=== PATIENT | male | born 1970 | race Caucasian/White ===

== ENCOUNTER 2023-06-20 16:55 | Emergency (ER) | payer MEDICARE, MEDICAID, SELFPAY ==
[2023-06-20 17:44] VITALS: BP 149/106; PULSE 77; RESP 16; TEMP 36.7; O2SAT 94; BMI 32.3
--- NOTE | 2023-06-20 20:15 | ED.EXTPRO ---
HPI - Extremity Problem General Chief complaint: Extremity Injury, Upper Stated complaint: shoulder injury, fell Time Seen by Provider: 06/20/23 20:13 Source: patient Mode of arrival: ambulatory Limitations: no limitations History of Present Illness HPI Narrative: 53 yo male no PMH states he has not felt well and became dizzy yesterday falling on his R shoulder - dominant hand. Has pain in R shoulder and difficulty moving arm. He has never injured the R shoulder before. No other injuries. When asked about the illness and dizziness he states I am not here for that. He refuses work up or to talk about any preceding events leading to the shoulder injury. MD Complaint: extremity pain and joint pain Onset (ago): day(s) (1) Pain Consistency: constant Location: right and upper extremity Quality: aching, dull and constant Radiation: none Relieving factors: rest Exacerbating factors: range of motion and palpation Associated symptoms: denies other symptoms Context: other (fall directly on shoulder) Related Data Previous Rx's Medication Instructions Recorded cyclobenzaprine 10 mg tablet 10 mg PO TID PRN muscle spasm #20 06/20/23 tabs Allergies Allergy/AdvReac Type Severity Reaction Status Date / Time No Known Allergies Allergy Verified 06/20/23 17:48 Review of Systems Review of Systems: Constitutional : No Fever, No Chills Cardiovascular : No Chest Pain, No SOB Respiratory : No Cough, No Dyspnea Gastrointestinal : No Nausea, No Vomiting, No Diarrhea, No abdominal Pain Genitourinary : No Dysuria, No Hematuria Musculoskeletal : positive joint pain, No Myalgias, No Joint Swelling Skin : No Skin lacerations, No rash Neuro : No Weakness, No Numbness, No Loss of Consciousness, No Dizziness, No Headache Psych : No Anxiety/Panic, No Depression All other systems reviewed and are negative [facility] Past Medical History Attestation statement: The following information was validated with the patient. Source: old records reviewed Onset Date is defined in the Problem List Problems that require an onset date and time if occurred within 24 hrs of arrival to the ED Aortic Dissection and Rupture; Neurologic impairment; Cardiopulmonary Arrest; Endotracheal Intubation; Insertion or Replacement of Mechanical Circulatory Assist Device Medical History No pertinent past medical history Social History Social History (Updated 06/20/23 @ 20:40 by Chaya Clements DO) Patient Tobacco Use Status: Tobacco use Unknown Physical Exam Vital Signs: Vital Signs: Last Vital Signs Temp 97.9 F 06/20/23 20:17 Pulse 83 06/20/23 20:17 Resp 18 06/20/23 20:17 BP 157/87 H 06/20/23 20:17 Pulse Ox 94 06/20/23 20:17 O2 Del Method Room Air 06/20/23 20:17 BMI result Body Mass Index 32.3 Appearance: Alert. Oriented X3. No acute distress. Eyes: Pupils equal, round and reactive to light. ENT: Pharynx normal. appears atraumatic Neck: Normal inspection. CVS: . Pulses normal. Respiratory: No respiratory distress. Abdomen: atraumatic Skin: Skin warm and dry. Normal skin color. Extremities: R shoulder ttp along prox humerus and AC joint - distal NV intact will not range the joint due to pain Neuro: Oriented X 3. No motor deficit. No sensory deficit. Medical Decision Making Medical Decision Making MDM Narrative: 53 yo male R hand dominant with some illness and dizziness resulting in a fall and R shoulder pain he is refusing to talk about it or get worked up - GCS 15 at this time c/o R shoulder pain cannot perform rotator cuff testing. He is NV intact will obtain xray and place in sling refer to orthopedics Differential Diagnosis Differential Diagnoses: The differential diagnosis associated with the presentation includes sprain, strain, fracture, rotator cuff injury Independent Interpretation I performed an independent interpretation of an: Plain X-Ray Radiology Impression Discussion of test interpretation with radiology: I have reviewed the radiologist's reading. Prescription Management I considered prescription management with: Other Procedures Orthopedic Splinting/Casting Injury #1: Side: right Upper Extremity Injury Location: shoulder Upper Extremity Immobilizer: sling/shoulder immobilizer Discharge Plan Discharge Clinical Impression: AC joint derangement Shoulder sprain Qualifiers: Encounter type: initial encounter Shoulder sprain type: unspecified sprain Laterality: right Qualified Code(s): S43.401A - Unspecified sprain of right shoulder joint, initial encounter Patient Disposition: Home, Self-Care Instructions: Shoulder Sprain (ED) Additional Instructions: wear sling for the next week follow up with orthopedics it is okay to move and range the elbow and wrist. return for weakness, numbness, worsening pain or any other concerns. can take motrin or tylenol over the counter for pain. Prescriptions: New cyclobenzaprine 10 mg tablet 10 mg PO TID PRN (Reason: muscle spasm) Qty: 20 0RF Referrals: Sagrario Amador PA-C [Physician Desk Manager] - 1 week (call to schedule appointment - one week)
[2023-06-20 20:17] VITALS: BP 157/87; PULSE 83; RESP 18; TEMP 36.6; O2SAT 94
== END 2023-06-20 21:16 | disposition home or self-care (01) ==
PROVIDERS: Emergency Provider Emergency Medicine
DX: S43.401A Unspecified sprain of right shoulder joint, initial encounter (principal); W18.30XA Fall on same level, unspecified, initial encounter; Y93.9 Activity, unspecified; Y92.9 Unspecified place or not applicable; Y99.9 Unspecified external cause status
CPT/HCPCS: 73030; 99283

== ENCOUNTER 2023-08-14 13:47 | Outpatient (AMB) | payer MEDICARE, SELFPAY ==
--- NOTE | 2023-08-14 13:54 | MHC.OFFVIS ---
Intake Intake Visit Reasons: SECOND HAND-Right shoulder pain-DOI 06/20/23 Intake Note: Paras is a 53 year old right hand dominant male who presents as a new patient with Right shoulder pain and weakness. The patient states that he injured his right shoulder several months ago when felt dizzy and fell directly onto his right arm. Since that time he has not been able to lift his right hand to shoulder height. The patient states that he had full active range of motion of his shoulder prior to his fall. He has taken Tylenol and anti-inflammatory medicines which gave him minimal relief. He has also done physical therapy exercises which aggravated his pain. Allergies No Known Allergies Allergy (Verified 08/14/23 13:54) [facility], [facility] Medical History No pertinent past medical history Social History Patient Tobacco Use Status: Tobacco use Unknown Physical Exam Const Other: Well-nourished well-developed very friendly male awake alert and oriented x3 in no acute distress Extrem Other: Bilateral upper extremity examination shows good capillary refill, no skin lesions noted, normal sensation light touch Right shoulder examination shows decreased active range of motion but full passive range of motion when compared to his left shoulder, 3/5 strength with supraspinatus testing, positive impingement signs, tenderness over his acromioclavicular joint, no instability Results Reviewed Results Reviewed: X-rays of the patient's right shoulder show severe acromioclavicular joint narrowing, a type 2 acromion, no acute bony abnormalities Assessment & Plan Assessment & Plan (1) Right shoulder pain: Code(s): M25.511 - Pain in right shoulder Plan Mr. Owen presents with progressively worsening right shoulder pain and weakness most likely due to a full-thickness rotator cuff tear. Thus, patient for an MRI of his right shoulder for further evaluation. I will contact him by phone once the MRI results are available to discuss the findings and treatment options. He will continue with his home stretching program in the meantime to prevent stiffness. I spent 22 minutes in reviewing the patient's records and imaging studies, seeing the patient and documenting in the medical record. Orders: Orders MR shoulder RT wo con Today M25.511 - Pain in right shoulder Coding Level of Care Code New Pt Level 2 (22499) Diagnoses Right shoulder pain M25.902
== END 2023-08-14 14:20 | disposition home or self-care (01) ==
PROVIDERS: Visit Provider Orthopaedic Surgery
DX: M25.511 Pain in right shoulder (principal)
CPT/HCPCS: 99202

== ENCOUNTER → 2023-08-14 13:47 | Outpatient (BNVA) | payer MEDICARE, SELFPAY | PROVIDERS: Visit Provider Orthopaedic Surgery | DX: M25.511 Pain in right shoulder (principal) | CPT/HCPCS: 99202 ==

== ENCOUNTER 2023-09-10 14:02 | Outpatient (REF) | payer MEDICARE, MEDICAID, SELFPAY ==
--- NOTE | ~2023-09-10 | MR_ITS ---
EXAMINATION: MR SHOULDER WITHOUT CONTRAST, RIGHT CLINICAL INFORMATION: Right shoulder pain. COMPARISON: Radiographs 06/20/2023 TECHNIQUE: MRI of the shoulder without contrast was performed on a high-field scanner. FINDINGS: ROTATOR CUFF: The supraspinatus and infraspinatus tendons are completely torn and retracted to the level of the glenoid with muscle edema and mild atrophy/fatty infiltration. A small portion of the torn supraspinatus tendon remains attached to the greater tuberosity anteriorly. The subscapularis and teres minor tendons are intact. BICEPS: Normal. CORACOACROMIAL ARCH: The undersurface of the acromion is flat with no subacromial spur. Moderate acromioclavicular osteoarthritis. LABRUM/CAPSULE: No definite labral tear. GLENOHUMERAL JOINT/MARROW: The humeral head is superiorly subluxed. There is a moderate joint effusion. Small degenerative cyst at the anterior aspect of the humeral head and small degenerative cysts of the superolateral humeral head. No focal full-thickness cartilage defect. MR/MR shoulder RT wo con IMPRESSION: 1. Completely torn and retracted supraspinatus and infraspinatus tendons with muscle edema and mild atrophy/fatty infiltration. 2. Moderate acromioclavicular and mild glenohumeral osteoarthritis with a moderate joint effusion.
== END 2023-09-10 14:03 | disposition home or self-care (01) ==
LOC: HO.MRI 14:02
PROVIDERS: Visit Provider Orthopaedic Surgery
DX: M25.511 Pain in right shoulder (principal)
CPT/HCPCS: 73221

== ENCOUNTER 2023-09-24 12:59 | Outpatient (AMB) | payer MEDICARE, SELFPAY ==
[2023-09-24 13:07] VITALS: BMI 32.3
--- NOTE | 2023-09-24 13:07 | MHC.OFFVIS ---
Intake Vital Signs 09/24/23 13:07 Height 5 ft 10 in Weight 225 lb BMI 32.3 Intake Visit Reasons: OV- MRI review Right shoulder Intake Note: Paras is a 53 year old right hand dominant male who presents as a new patient with Right shoulder pain and weakness. The patient states that he injured his right shoulder several months ago when felt dizzy and fell directly onto his right arm. Since that time he has not been able to lift his right hand to shoulder height. The patient states that he had full active range of motion of his shoulder prior to his fall. He has taken Tylenol and anti-inflammatory medicines which gave him minimal relief. He has also done physical therapy exercises which aggravated his pain. Allergies No Known Allergies Allergy (Verified 09/24/23 13:09) Medication List - Last Reconciled 09/24/23 by Faizan Moreira MD No Known Home Meds [facility] Medical History (Updated 08/14/23 @ 14:23 by Faizan Moreira MD) No pertinent past medical history Surgical History (Updated 09/24/23 @ 13:09 by Ernestina Woodruff CMA) Hx of right knee surgery (~2010) Social History (Updated 09/24/23 @ 13:10 by Ernestina Woodruff CMA) Patient Tobacco Use Status: Tobacco use Unknown Current occupational status: unemployed Current occupation: Right hand dominate Physical Exam Vital Signs: BMI result Body Mass Index 32.3 Const Other: Well-nourished well-developed very friendly male awake alert and oriented x3 in no acute distress Extrem Other: Bilateral upper extremity examination shows good capillary refill, no skin lesions noted, normal sensation light touch Right shoulder examination shows full passive range of motion but limited active range of motion, 3/5 strength with supraspinatus testing, positive impingement signs, no instability Results Reviewed Results Reviewed: MRI of the patient's right shoulder shows a large rotator cuff tear with retraction almost to the glenoid lip as well as a high riding humeral head Assessment & Plan Assessment & Plan (1) Right shoulder pain: Code(s): M25.511 - Pain in right shoulder Plan Mr. Hughes presents with right shoulder pain and weakness due to a large rotator cuff tear. I had a lengthy discussion with the patient regarding the treatment options. At this point he has failed continued non operative treatments. He wishes to undergo right shoulder surgery at some point in the future. The patient may require a total shoulder arthroplasty because of the size of his tear. I will have him evaluated by my partner, Dr. Mai, who performs this type of surgery to further discuss the risks and benefits of surgical intervention. The patient will continue with his range of motion exercises in the meantime to prevent stiffness. Feel free to call me at any time should questions regarding his orthopedic management arise. I spent 22 minutes in reviewing the patient's records and imaging studies, seeing the patient and documenting in the medical record. Coding Level of Care Code Est Pt Level 2 (05738) Diagnoses Right shoulder pain M25.511
== END 2023-09-24 13:30 | disposition home or self-care (01) ==
PROVIDERS: Visit Provider Orthopaedic Surgery
DX: M25.511 Pain in right shoulder (principal)
CPT/HCPCS: 99213

== ENCOUNTER → 2023-09-24 12:59 | Outpatient (BNVA) | payer MEDICARE, MEDICAID, SELFPAY | PROVIDERS: Visit Provider Orthopaedic Surgery | DX: M25.511 Pain in right shoulder (principal) | CPT/HCPCS: 99212 ==

== ENCOUNTER 2023-10-14 10:12 | Outpatient (AMB) | payer MEDICARE, SELFPAY ==
[2023-10-14 10:17] VITALS: BMI 32.3
--- NOTE | 2023-10-14 10:17 | MHC.OFFVIS ---
Vital Signs 10/14/23 10:17 Height 5 ft 10 in Weight 225 lb BMI 32.3 Intake Visit Reasons: OV - Discuss Right TSA Intake Note: Paras is a 53 year old right hand dominant male who presents today for a follow up of his right RTC tear. He was last seen with Dr. moreira who referred to Dr. Mai for possible surgical intervention. Allergies No Known Allergies Allergy (Verified 09/24/23 13:09) HPI HPI OV - Discuss Right TSA: Details: Paras is a 53 year old right hand dominant male who presents today for a follow up of his right RTC tear. He was last seen with Dr. Moreira who referred to Dr. Mai for possible surgical intervention. He fell in June and has been unable to abduct his right arm since his fall. Prior to falling he had full painless motion of his right arm. [facility] Medical History No pertinent past medical history Surgical History Hx of right knee surgery (~2010) Social History Patient Tobacco Use Status: Tobacco use Unknown Current occupational status: unemployed Current occupation: Right hand dominate Physical Exam Vital Signs: BMI result Body Mass Index 32.3 Const General: cooperative, healthy appearing, no acute distress and well groomed Orientation/consciousness: oriented to person and oriented to place HEENT Head: Yes normal to inspection, Yes normocephalic and Yes atraumatic Eyes General: appearance normal, both eyes and all related structures Alignment and Position: alignment normal Conjunctivae: conjunctivae normal EOM: EOMs intact bilaterally Neck Neck: Yes normal visual inspection and Yes trachea midline Resp Other: No rerpiratory distress Effort & Inspection: normal respiratory effort and able to speak in complete sentences Cardio Other: Palpable radial pulse with no appreciable rythmic abnormalities GI Other: No abdominal distension Back/Spine/Pelvis Cervical Spine: normal cervical lordosis and cervical ROM normal Skin General skin exam: no rashes or lesions noted Neuro General: oriented to person, oriented to place and gait normal Extrem Other: 4-/5 empty can 35/70/95/hp neg lift off Results Reviewed Results Reviewed: I personally reviewed the MR images. Large retracted superior cuff tear with mild atrophy I personally reviewed relevant radiographs. Nl radiographs of the right shoulder Assessment & Plan Assessment & Plan (1) Rotator cuff tear, right: Code(s): M75.101 - Unspecified rotator cuff tear or rupture of right shoulder, not specified as traumatic Category: Medical Plan: This is a 53 yo healthy M with right rtc tear. The ter is retracted on MR but minimal atrophy. I recommend repair. I discussed the risks benefits and alternatives including but not limited to the risk of pain, infection, stiffness, need for further surgery as well as potential medical complications such as blood clots, pulmonary embolism and cardiac complications. I also explained that, given the large nature of this tear, it may only be partially repairable. He understands this and wishes to proceed forward with rtc repair. Coding Level of Care Code Est Pt Level 4 (17546) Diagnoses Rotator cuff tear, right M75.101
== END 2023-10-14 13:27 | disposition home or self-care (01) ==
PROVIDERS: Visit Provider Orthopaedic Surgery
DX: S46.011A Strain of muscle(s) and tendon(s) of the rotator cuff of right shoulder, initial encounter (principal)
CPT/HCPCS: 99214

== ENCOUNTER → 2023-10-14 10:12 | Outpatient (BNVA) | payer MEDICARE, SELFPAY | PROVIDERS: Visit Provider Orthopaedic Surgery | DX: M75.101 Unspecified rotator cuff tear or rupture of right shoulder, not specified as traumatic (principal) | CPT/HCPCS: 99212 ==

== ENCOUNTER 2023-11-13 12:13 | Outpatient (AMB) | payer MEDICARE, SELFPAY ==
--- NOTE | 2023-11-13 12:48 | MHC.OFFVIS ---
Vital Signs 11/13/23 12:49 Height 5 ft 10 in Weight 225 lb BMI 32.3 Intake Visit Reasons: Preop RT RTC 11/20/23 NE Intake Note: Paras is a 53 year old male who presents today for a pre operative appointment. He will undergo a Right RTC Repair on 11/20/23 Allergies No Known Allergies Allergy (Verified 11/13/23 12:49) HPI HPI Preop RT RTC 11/20/23 NE: Details: 53 yo male presents to the office today pre op appt Right shoulder RTC repair with Dr Mai. [facility] Medical History No pertinent past medical history Surgical History Hx of right knee surgery (~2010) Social History Patient Tobacco Use Status: Tobacco use Unknown Current occupational status: unemployed Current occupation: Right hand dominate Review of Systems Const All systems reviewed & are unremarkable except as noted in HPI and below Physical Exam Vital Signs: BMI result Body Mass Index 32.3 Const General: cooperative and no acute distress Orientation/consciousness: patient oriented x3 HEENT Head: Yes normal to inspection, Yes normocephalic and Yes atraumatic Eyes General: appearance normal, both eyes and all related structures Alignment and Position: alignment normal Conjunctivae: conjunctivae normal EOM: EOMs intact bilaterally Neck Neck: Yes normal visual inspection and Yes no lymphadenopathy Resp Other: No rerpiratory distress Effort & Inspection: normal respiratory effort and able to speak in complete sentences Cardio Other: Palpable radial pulse with no appreciable rythmic abnormalities Peripheral pulses: Peripheral pulses 2+ throughout GI Other: No abdominal distension Inspection: Yes normal to inspection Palpation (GI): Soft to palpation Back/Spine/Pelvis Cervical Spine: normal cervical lordosis and cervical ROM normal Skin General skin exam: no rashes or lesions noted Neuro General: patient oriented x3 Extrem Other: 4-/5 empty can 35/70/95/hp neg lift off Assessment & Plan Assessment & Plan (1) Rotator cuff tear, right: Code(s): M75.101 - Unspecified rotator cuff tear or rupture of right shoulder, not specified as traumatic Category: Medical Plan: I was discussing the procedure and post op course with the patient today when he brought to my sttention that he does not have transportation to and from surgery. I expressed the importance of this and asked what his living situation was and he mentioned he is homeless. Given these circumstances, his surgery will be cancelled at this time. I encouraged him to get in touch with his pcp to discuss some type of disability services or assistance to help him get on his feet to allow for us to eventually proceed with his surgery. Patient is content with this plan. Coding Level of Care Code Est Pt Level 3 (52578) Diagnoses Rotator cuff tear, right M75.101
[2023-11-13 12:49] VITALS: BMI 32.3
== END 2023-11-13 16:06 | disposition home or self-care (01) ==
PROVIDERS: Visit Provider Physician Assistant
DX: M75.101 Unspecified rotator cuff tear or rupture of right shoulder, not specified as traumatic (principal)
CPT/HCPCS: 99024

== ENCOUNTER → 2023-11-13 12:13 | Outpatient (BNVA) | payer MEDICARE, SELFPAY | PROVIDERS: Visit Provider Physician Assistant | DX: Z01.818 Encounter for other preprocedural examination (principal); M75.101 Unspecified rotator cuff tear or rupture of right shoulder, not specified as traumatic | CPT/HCPCS: 99212 ==

== ENCOUNTER 2024-10-08 07:44 | Inpatient (IN) | payer MEDICARE, MEDICAID, SELFPAY ==
[2024-10-08] VITALS (8 sets, daily range): BP systolic 109–155; BP diastolic 59–92; PULSE 80–92; RESP 14–20; TEMP 36.4–37.3; O2SAT 94–98; BMI 30.1; BMI 31.1
--- NOTE | ~2024-10-08 | CT_ITS ---
EXAMINATION: CT ABDOMEN AND PELVIS WITH CONTRAST CLINICAL INFORMATION: Left lower quadrant pain. COMPARISON: None available. TECHNIQUE: Multidetector volumetric images were obtained from the superior aspect of the liver through the pubic symphysis following administration 85 mL of Omnipaque 350 intravenous contrast. Sagittal and coronal reformatted images were obtained on the technologist's workstation. Oral contrast: No This CT examination was performed using dose optimization techniques as appropriate, variously including the following: *Automated exposure control *Adjustment of mA and/or kV according to patient size (this includes techniques or standardized protocols for targeted exams where dose is matched to indication/reason for exam; i.e. extremities or head) *Use of iterative reconstruction technique FINDINGS: LUNG BASES: 5 mm nodule in the anterior right lower lobe, nonspecific (series 7, image 9). 5 mm nodule in the lateral right lower lobe (series 7, image 13). 8 mm nodule in the left lower lobe (series 7, image 9). No effusions. Lung bases otherwise clear. Borderline cardiac enlargement. No pericardial effusion. Small type I hiatus hernia suspected.] Minutes LIVER, GALLBLADDER, AND BILIARY TREE: Irregular vague oval 2.3 cm nodule in segment 8 (series 2, image 16). Vague hypoattenuating oval nodule segment 8 (series 2, image 26) measuring 2.3 x 1.5 cm. Vague hypoattenuating 1.2 cm nodule segment 7 (series 2, image 25). 9 mm hypoattenuating nodule segment 7, and 10 mm hypoattenuating nodule or inferior segment 7 (series 2, image 36). There are additional small vague hypoattenuating lesions in the liver, which are highly suspect for metastatic lesions. PANCREAS: Normal appearance without definite lesion. SPLEEN: Unremarkable. ADRENAL GLANDS: Unremarkable. KIDNEYS AND URETERS: The kidneys are normal in size, shape, and attenuation. No hydronephrosis, hydroureter, or calculi seen. No perinephric stranding. BLADDER: Unremarkable. GASTROINTESTINAL TRACT: Short segment of extensive wall thickening and irregularity of the sigmoid colon with pericolonic inflammation consistent with acute diverticulitis. There are nodular soft tissue low attenuating elements abutting this inflamed region highly suggestive of metastases or extension of primary malignancy from the colon (series 2, image 74), which is in direct continuity with a loop of terminal ileum (series 5, images 37-45) suspect primary neoplasm in this region. Mesenteric metastasis present slightly more cephalad abutting the left medial psoas muscle (series 2, image 66), measuring 3.0 x 2.4 cm axial plane. Enlarged portacaval lymph node measuring 2.1 x 2.4 cm (series 2, image 31). There is an enlarged para-aortic lymph node at the same level measuring 1.9 x 1.2 cm (series 2, image 31). There is no small bowel obstruction despite apparent tumor involvement of the terminal ileum as seen on coronal series 5, image 38. Normal appendix. The remainder of the colon demonstrates diverticulosis but is otherwise normal in appearance. ABDOMINAL WALL: No significant hernia is appreciated. LYMPH NODES: As above. VASCULAR: Unremarkable. PELVIC VISCERA: The prostate and seminal vesicles are unremarkable. OSSEOUS STRUCTURES: No suspicious lytic or blastic bone lesions evident. There are spinal degenerative changes. CT/CT abdomen pelvis w IV con IMPRESSION: 1. Acute diverticulitis in the left lower quadrant involving a short segment of proximal sigmoid colon, with evidence for an adjacent/contiguous infiltrating hypoattenuating mass lesion with direct involvement of an adjacent loop of terminal ileum, with both mesenteric and sheila metastases present. (See above). 2. There are poorly defined hypoattenuating oval lesions throughout the liver as detailed, highly suspicious for metastatic disease. 3. There are nodules in the lung bases measuring up to 8 mm left lower lobe, also suspicious. 4. There are abnormal aortocaval and para-aortic lymph nodes present, suspicious. Findings discussed with Pau Lazo PA-C of the [facility], via phone call at 10:28 AM, 10/08/2024, with findings understood. Electronically signed by: Nicolas Jones MD 10/08/2024 10:29 AM EDT
[2024-10-08 08:13] LABS: Glucose, Whole Blood 118 mg/dL (60-115)
--- NOTE | 2024-10-08 08:15 | PC.NURSE ---
pt is alert and oriented, skin slightly clammy to the touch, respirations even and unlabored, pt reports left lower abd pain and nausea that started yesterday bowel sounds in all 4 quadrants, abd soft but slightly tender in llq, pt is also reporting feeling generally weak and lightheaded/dizzy with pressure in his eyes, aslo states that his left leg yesterday felt very tight and painful, denies urinary symptoms
[2024-10-08 08:16] LABS: Basophils Absolute Auto 0.1 X10*3/uL (0.0-0.2); Basophils Percent Auto 0.4 % (0-2); Eosinophils Absolute Auto 0.1 X10*3/uL (0.0-0.4); Eosinophils Percent Auto 0.9 % (0-4); Hematocrit 36.3 % (42.0-52.0); Hemoglobin 10.7 g/dl (14.0-18.0); Imm Gran Abs Auto 0.05 X10*3/uL (0.00-0.03); Imm Gran Pct Auto 0.4 % (0.0-0.4); Lymphocytes Absolute Auto 1.7 X10*3/uL (1.2-4.9); MANUAL DIFF FLAG SCAN; Mean Corpuscular HGB Conc 29.5 g/dl (31.0-36.0); Mean Corpuscular Hemoglobin 23.1 pg (27.0-33.0); Mean Corpuscular Volume 78.2 fL (80.0-98.0); Monocytes Absolute Auto 1.6 X10*3/uL (0.1-1.2); Monocytes Percent Auto 11.7 % (2-11); Neutrophils Absolute Auto 10.4 x10*3/uL (2.0-8.3); Neutrophils Percent Auto 74.6 % (45-73); Platelet Count 383 X10*3/uL (160-400); Red Blood Count 4.64 X10*6/uL (4.60-5.80); Red Cell Distribution Width 14.9 % (11.0-16.0); SCAN SMEAR FLAG 1; White Blood Count 13.9 X10*3/uL (4.8-10.8)
[2024-10-08 08:31] LABS: Alanine Aminotransferase 28 U/L (0-40); Albumin Level 4.1 g/dL (3.5-5.0); Alkaline Phosphatase 100 U/L (39-117); Anion Gap 14 (12-20); Aspartate Amino Transferase 32 U/L (5-37); Bilirubin Direct 0.3 mg/dL (0.0-0.5); Bilirubin Total 0.7 mg/dL (0.0-1.0); Blood Urea Nitrogen 13 mg/dL (9-16); Calcium 9.8 mg/dL (8.4-10.2); Carbon Dioxide 24 mmol/L (22-29); Chloride 102 mmol/L (96-108); Creatinine Clr Calc Pharmacy 102.7; Estimated Glomerular Filt Rate > 60; Glucose Random 134 mg/dL (60-115); Lipase 12 U/L (8-78); Potassium 4.6 mmol/L (3.3-5.1); Sodium 135 mmol/L (135-145); Total Protein 8.1 g/dL (6.5-8.0)
[2024-10-08 08:39] LABS: SLIDE REVIEW VERIFIED
[2024-10-08 09:09] LABS: Influenza A PCR NEGATIVE (Negative); Influenza B PCR NEGATIVE (Negative); Resp Syncy Virus RNA Qual PCR NEGATIVE (Negative); SARS COV2 PCR INHOUSE NEGATIVE (Negative)
--- NOTE | 2024-10-08 09:11 | ED_ITS ---
HPI - Abdominal Pain General Chief Complaint: Abdominal Pain Stated Complaint: Abd pain Time Seen by Provider: 10/08/24 09:03 Source: patient Mode of arrival: ambulatory Limitations: no limitations History of Present Illness ED Provider: PAU LAZO PA-C HPI narrative: 54 year old male with no significant pmhx presenting to the ED with complaints of left lower quadrant abdominal pain x yesterday. Describes pain as severe however somewhat improved since onset. Pain woke him from his sleep yesterday morning. No radiation of pain. Reports feeling out of it with associated dizziness. Last bowel movement was 2 days ago. States this can be typical for him. Admits to intermittent blood in his stool. Reports episode of cramping to left thigh/calf yesterday that completely resolved with topical muscle relaxer. Patient tells me that he first attributed his symptoms to recent stress surrounding his mother passing. Denies chest pain, shortness of breath, headache, nausea, vomiting, constipation, diarrhea, hematuria. Denies recent travel or long car rides. Denies history of surgeries on his abdomen. Related Data Home Medications ?Medication ?Instructions ?Recorded ?Confirmed No Known Home Meds 09/24/23 09/24/23 Allergies Allergy/AdvReac Type Severity Reaction Status Date / Time No Known Allergies Allergy Verified 10/08/24 07:49 Review of Systems Review of Systems Yes all other systems are reviewed and are negative PMFSH Past Medical History Attestation statement: The following information was validated with the patient. Source: old records reviewed and nursing notes reviewed Medical History No pertinent past medical history Surgical History Hx of right knee surgery (~2010) Social History Social History Patient Tobacco Use Status: Tobacco use Unknown Smoked in Last 30 Days: No Use of substances other than those prescribed or required for medical reasons: No Advance Directives: No Advance Directives Information Provided: Yes Do you have a plan to hurt others: No Plan Current occupational status: unemployed Current occupation: Right hand dominate Physical Exam ED Vital Signs: Vital Signs - 24 hr 10/08/24 07:46 10/08/24 08:54 10/08/24 10:05 Temperature 97.6 F 98.9 F 98.4 F Pulse Rate 91 86 88 Respiratory Rate 16 20 16 Blood Pressure 153/92 H 117/75 134/75 Pulse Oximetry 97 95 97 Oxygen Delivery Method Room Air Room Air Room Air BMI result Body Mass Index 30.1 Hypertensive to 153/92. Afebrile. General: Pale appearing, in no acute distress Skin: Warm, dry, intact. No rashes or lesions. Head: Normocephalic, atraumatic. EENT: Hearing is intact b/l. Conjunctiva clear. Sclera is anicteric. Dry mucous membranes. Neck: Supple without LAD. Cardiac: Chest wall symmetric. RRR. Lungs: Normal respiratory effort without accessory muscle use. CTA bilaterally. Abdomen: soft, nondistended, tender to palpation of left lower quadrant without rebound tenderness or guarding. Active bowel sounds x4. Ext: Upper and lower extremities atraumatic, without deformity, swelling or erythema. No calf tenderness bilaterally. Neuro: AOx3. Normal speech. Sensation intact to bilateral LE Course Course Course Narrative: 0942 -- CBC with leukocytosis to 13.9. Microcytic anemia, no priors to compare to. H&H 10.7/36.3, above transfusion threshold. Chemistry without acute electrolyte abnormality requiring intervention. No MELINDA. Glucose 134. Liver function WNL. Lipase WNL. Negative COVID, flu, RSV. Urinalysis pending. > CT A/P ordered > receiving IV fluids, Toradol for pain 1144 -- Received call from radiologist Dr. Jones regarding results from CT scan. CT abdomen/pelvis showing acute diverticulitis in the left lower quadrant involving a short segment of proximal sigmoid colon with evidence for an adjacent/contiguous infiltrating hypoattenuating mass lesion with direct involvement of an adjacent loop of terminal ileum. Both mesenteric and sheila meds are present. There are poorly defined hypoattenuating oval lesions throughout the liver highly suspicious for metastatic disease. There are also nodules in the lungs measuring up to 8 mm left lower lobe also suspicious for metastatic disease. There are abnormal aortocaval and para-aortic lymph nodes present. > concern for metastatic cancer. I did reach out to Dr. James with general surgery. No specific recommendations at this time however recommended I reach out to GI. I spoke with butadiene converter utility operator Dr. Lemon who is recommendation is admission, treatment with IV antibiotics, Oncology consult, CEA level and possibly liver biopsy via IR. > I discussed all workup results with patient. He verbalizes understanding/severity of the situation. He wis agreeable with admission. IV Zosyn ordered. I spoke with hospitalist, Dr. Paredes who has accepted patient admission to medicine. patient is currently stable with continued LLQ pain - will trial morphine. Medical Decision Making Medical Decision Making [facility] Narrative: 54 year old male presenting to the ED with complaints of left lower quadrant abdominal pain x yesterday. Afebrile. Patient initially hypertensive to 153/92, vitals otherwise WNL. Afebrile. He is pale appearing, dry mucous membranes. Abdomen is soft, nondistended, tender to palpation of left lower quadrant without rebound or guarding, active bowel sounds. Differential diagnoses: appendicitis, diverticulitis, diverticulosis, UTI, constipation, anemia, electrolyte abnormality, dehydration Abdominal exam without peritoneal signs. No evidence of acute abdomen at this time. Well appearing. Low suspicion for acute hepatobiliary disease (including acute cholecystitis), acute infectious processes (pneumonia, hepatitis), vascular catastrophe, bowel obstruction or viscus perforation, testicular torsion, orchitis, epidydymitis. Presentation not consistent with other acute, emergent causes of abdominal pain at this time. Plan for labs, UA, POC glucose, inflammatory markers, CT abdomen/pelvis w contrast, IVF, Differential Diagnosis Differential Diagnoses: The differential diagnosis associated with the presentation includes As above Admission/Observation Not indicated Lab Data [facility] Lab Attestation statement: I reviewed the patient's lab results. As above 10/08/24 08:10 10/08/24 08:10 Labs: Lab Results 10/08/24 10/08/24 Range/Units 08:10 10:18 WBC 13.9 H (4.8-10.8) X10*3/uL RBC 4.64 (4.60-5.80) X10*6/uL Hgb 10.7 L (14.0-18.0) g/dl Hct 36.3 L (42.0-52.0) % MCV 78.2 L (80.0-98.0) fL MCH 23.1 L (27.0-33.0) pg MCHC 29.5 L (31.0-36.0) g/dl RDW 14.9 (11.0-16.0) % Plt Count 383 (160-400) X10*3/uL MPV 10.0 (9.4-12.4) fL Immature Gran % (Auto) 0.4 (0.0-0.4) % Neut % (Auto) 74.6 H (45-73) % Lymph % (Auto) 12.0 L (20-40) % [place] % (Auto) 11.7 H (2-11) % Eos % (Auto) 0.9 (0-4) % Baso % (Auto) 0.4 (0-2) % Lymph # (Auto) 1.7 (1.2-4.9) X10*3/uL [place] # (Auto) 1.6 H (0.1-1.2) X10*3/uL Eos # (Auto) 0.1 (0.0-0.4) X10*3/uL Baso # (Auto) 0.1 (0.0-0.2) X10*3/uL Abs Immat Gran (auto) 0.05 H (0.00-0.03) X10*3/uL Absolute Neuts (auto) 10.4 H (2.0-8.3) x10*3/uL Absolute Nucleated RBC 0.000 (0.0-0.012) X10*3/uL Nucleated RBC % (auto) 0.0 (0.0-0.2) /100WBC Smear Tech's Comments VERIFIED ESR 91 H (0-15) MM/HR Sodium 135 (135-145) mmol/L Potassium 4.6 (3.3-5.1) mmol/L Chloride 102 (96-108) mmol/L Carbon Dioxide 24 (22-29) mmol/L Anion Gap 14 (12-20) BUN 13 (9-16) mg/dL Creatinine 0.93 (0.5-1.4) mg/dL Estim Creat Clear Calc 102.7 Estimated GFR > 60 POC Glucose 118 H (60-115) mg/dL Random Glucose 134 H (60-115) mg/dL Calcium 9.8 (8.4-10.2) mg/dL Iron 17 L (45-160) mcg/dL TIBC 282 (228-428) mcg/dL % Saturation 6 L (15-50) % Unsat Iron Binding 265 ug/dL Total Bilirubin 0.7 (0.0-1.0) mg/dL Direct Bilirubin 0.3 (0.0-0.5) mg/dL AST 32 (5-37) U/L ALT 28 (0-40) U/L Alkaline Phosphatase 100 (39-117) U/L C-Reactive Protein 11.93 H (< or = 0.50) mg/dL Total Protein 8.1 H (6.5-8.0) g/dL Albumin 4.1 (3.5-5.0) g/dL Lipase 12 (8-78) U/L Stool Occult Blood NEGATIVE (NEGATIVE) Influenza Type A (PCR) NEGATIVE (Negative) Influenza Type B (PCR) NEGATIVE (Negative) RSV RNA Qual (PCR) NEGATIVE (Negative) SARS-CoV-2 RNA (RT-PCR) NEGATIVE (Negative) Independent Interpretation I performed an independent interpretation of an: CT Scan Interpretation: CT A/P without obvious bowel obstruction, inflammatory changes to colon in left lower quadrant Radiology Impression Discussion of test interpretation with radiology: I have reviewed the radiologist's reading. Radiologist Impression: Procedure(s): CT abdomen pelvis w IV con Accession Number(s): [id number] cc: [facility]; Pau Lazo~ Report Number: [id number]: Total DLP = 668.00 mGy-cm EXAMINATION: CT ABDOMEN AND PELVIS WITH CONTRAST CLINICAL INFORMATION: Left lower quadrant pain. COMPARISON: None available. TECHNIQUE: Multidetector volumetric images were obtained from the superior aspect of the liver through the pubic symphysis following administration 85 mL of Omnipaque 350 intravenous contrast. Sagittal and coronal reformatted images were obtained on the technologist's workstation. Oral contrast: No This CT examination was performed using dose optimization techniques as appropriate, variously including the following: *Automated exposure control *Adjustment of mA and/or kV according to patient size (this includes techniques or standardized protocols for targeted exams where dose is matched to indication/reason for exam; i.e. extremities or head) *Use of iterative reconstruction technique FINDINGS: LUNG BASES: 5 mm nodule in the anterior right lower lobe, nonspecific (series 7, image 9). 5 mm nodule in the lateral right lower lobe (series 7, image 13). 8 mm nodule in the left lower lobe (series 7, image 9). No effusions. Lung bases otherwise clear. Borderline cardiac enlargement. No pericardial effusion. Small type I hiatus hernia suspected.] Minutes LIVER, GALLBLADDER, AND BILIARY TREE: Irregular vague oval 2.3 cm nodule in segment 8 (series 2, image 16). Vague hypoattenuating oval nodule segment 8 (series 2, image 26) measuring 2.3 x 1.5 cm. Vague hypoattenuating 1.2 cm nodule segment 7 (series 2, image 25). 9 mm hypoattenuating nodule segment 7, and 10 mm hypoattenuating nodule or inferior segment 7 (series 2, image 36). There are additional small vague hypoattenuating lesions in the liver, which are highly suspect for metastatic lesions. PANCREAS: Normal appearance without definite lesion. SPLEEN: Unremarkable. ADRENAL GLANDS: Unremarkable. KIDNEYS AND URETERS: The kidneys are normal in size, shape, and attenuation. No hydronephrosis, hydroureter, or calculi seen. No perinephric stranding. BLADDER: Unremarkable. GASTROINTESTINAL TRACT: Short segment of extensive wall thickening and irregularity of the sigmoid colon with pericolonic inflammation consistent with acute diverticulitis. There are nodular soft tissue low attenuating elements abutting this inflamed region highly suggestive of metastases or extension of primary malignancy from the colon (series 2, image 74), which is in direct continuity with a loop of terminal ileum (series 5, images 37-45) suspect primary neoplasm in this region. Mesenteric metastasis present slightly more cephalad abutting the left medial psoas muscle (series 2, image 66), measuring 3.0 x 2.4 cm axial plane. Enlarged portacaval lymph node measuring 2.1 x 2.4 cm (series 2, image 31). There is an enlarged para-aortic lymph node at the same level measuring 1.9 x 1.2 cm (series 2, image 31). There is no small bowel obstruction despite apparent tumor involvement of the terminal ileum as seen on coronal series 5, image 38. Normal appendix. The remainder of the colon demonstrates diverticulosis but is otherwise normal in appearance. ABDOMINAL WALL: No significant hernia is appreciated. LYMPH NODES: As above. VASCULAR: Unremarkable. PELVIC VISCERA: The prostate and seminal vesicles are unremarkable. OSSEOUS STRUCTURES: No suspicious lytic or blastic bone lesions evident. There are spinal degenerative changes. CT/CT abdomen pelvis w IV con IMPRESSION: 1. Acute diverticulitis in the left lower quadrant involving a short segment of proximal sigmoid colon, with evidence for an adjacent/contiguous infiltrating hypoattenuating mass lesion with direct involvement of an adjacent loop of terminal ileum, with both mesenteric and sheila metastases present. (See above). 2. There are poorly defined hypoattenuating oval lesions throughout the liver as detailed, highly suspicious for metastatic disease. 3. There are nodules in the lung bases measuring up to 8 mm left lower lobe, also suspicious. 4. There are abnormal aortocaval and para-aortic lymph nodes present, suspicious. Findings discussed with Pau Lazo PA-C of the [facility], via phone call at 10:28 AM, 10/08/2024, with findings understood. Prescription Management I considered prescription management with: Pain Medication and Antibiotic Social Determinants Patient?s care significantly limited by Social Determinants of Health including: Other Social Determinant of Health Medications Administered Generic Name Dose Route Start Last Admin Trade Name Freq PRN Reason Stop Dose Admin Metronidazole 500 mg in 100 mls @ 100 mls/hr 10/08/24 13:00 10/08/24 14:02 Flagyl IV Infused Q8H GEORGINA Infusion Sodium Chloride 1,000 mls @ 100 mls/hr 10/08/24 13:30 10/08/24 13:37 Ns IVCONT 100 mls/hr .Q10H GEORGINA Administration Discontinued Medications Generic Name Dose Route Start Last Admin Trade Name Freq PRN Reason Stop Dose Admin Sodium Chloride 1,000 mls @ 999 mls/hr 10/08/24 09:30 10/08/24 11:12 Ns IV 10/08/24 10:30 Infused .Q1H1M GEORGINA Infusion Piperacillin Sod/Tazobactam 100 mls @ 200 mls/hr 10/08/24 11:04 10/08/24 11:42 Sod 4.5 gm/ Sodium Chloride IV 10/08/24 11:33 Infused ONCE ONE Infusion Iohexol 100 ml 10/08/24 09:38 10/08/24 09:39 Iohexol 350 Mg/Ml 100 Ml Infus..Btl IV 10/08/24 09:39 85 ml ONCE ONE Administration Ketorolac Tromethamine 30 mg 10/08/24 09:19 10/08/24 09:29 Ketorolac Tromethamine 30 Mg/Ml Vial IVPUSH 10/08/24 09:20 30 mg ONCE ONE Administration Morphine Sulfate 2 mg 10/08/24 11:50 10/08/24 12:14 Morphine Sulfate 2 Mg/Ml Cartridge IVPUSH 10/08/24 11:51 2 mg ONCE ONE Administration Protocol Critical Care Time Critical Care Time Critical Care Time: Yes Total Critical Care Time: 31 Attestation: Critical care time in the amount of 31 minutes has been provided to the patient in terms of direct patient care, frequent reevaluation on IV morphine, consultation with General surgery, GI and hospitalist, review and interpretation of medical data and results, and management of potentially life-threatening conditions. This is all outside of any medical procedures. Discharge Plan Discharge Clinical Impression: Acute diverticulitis, Colonic mass, Anemia Patient Disposition: Admitted As Inpatient
[2024-10-08] MEDS: 0.9 % Sodium Chloride 1,000 ML 999 ML IV (09:28)
[2024-10-08] MEDS: Ketorolac Tromethamine 30 MG/ML VIAL IVPUSH (09:29)
[2024-10-08] MEDS: iohexoL 350 MG/ML 100 ML INFUS..BTL IV (09:39)
[2024-10-08 09:42] LABS: C Reactive Protein 11.93 mg/dL (< or = 0.50)
[2024-10-08 10:13] LABS: Erythrocyte Sedimentation Rate 91 MM/HR (0-15)
[2024-10-08 10:32] LABS: OBS Int Ctl Valid YES; OBS1 NEGATIVE (NEGATIVE)
[2024-10-08] MEDS: Piperacillin Sodium/Tazobactam 4.5 GM in 0.9 % Sodium Chloride 100 ML IV (11:12)
--- NOTE | 2024-10-08 12:01 | PM.IMHP ---
History of Present Illness Date of Service: 10/08/24 Attending physician on admission: Nancy Merino Chief Complaint: Abd pain Pt is a 54-year-old male without any known significant PMH not on home meds who presents to the ED with?severe left lower quadrant tenderness x2 days. Pt reports symptoms began yesterday morning and lasted throughout the day. Also felt lightheaded, fatigued, and drowsy during most of the day. In the evening had a prolonged episode of left lower extremity tightness and cramping in thigh, calf, and ankle that was alleviated with OTC muscle creme. This morning symptoms persisted which prompted pt coming to the ED for further evaluation. Denies nausea, vomiting, diarrhea. No fever or chills. No chest pain/pressure, palpitations. Denies difficulty breathing or SOB. Reports occasional lightheadedness and feeling fatigued for the past few years. Has also occasionally noticed small amounts of bright red blood in his stool, but none recently. Denies any recent unintended weight loss. No night sweats. Has never had a colonoscopy before and reports has not followed with a PCP in the past 20+ years. Of note, pt reports has been feeling increasingly anxious due to the recent passing of his mother. In the ED pt was tachycardic up to 91 and initially hypertensive at 153/92, vitals otherwise stable and WNL. Labs were significant for leukocytosis of 13 point, H&H 10.7/36.3, MCV 78.2, ESR 91, and CRP 11.93. Stool negative for occult blood. No significant electrolyte abnormalities. Renal function WNL. Hepatic function WNL. Tested negative for flu, COVID, and RSV. CT?of abdomen and pelvis found acute diverticulitis of short segment of proximal sigmoid colon with evidence of adjacent/contiguous infiltrating hypoattenuating mass lesion with likely mesenteric and sheila metastasis. Also showed poorly defined hypoattenuating oval lesions throughout liver highly suspicious for metastatic disease. Imaging of lung bases showed nodules measuring up to 8 mm in left lower lobe and abnormal aortocaval and para-aortic lymph nodes, all suspicious for metastatic disease. Pt was treated in the ED with IVF, ketorolac, and Zosyn. Pt is admitted to the hospital for treatment and further evaluation of acute diverticulitis meeting SIRS criteria. Review of Systems Review of Systems: Negative except for that which is stated in the HPI. [facility] Medical History No pertinent past medical history Surgical History Hx of right knee surgery (~2010) Social History Patient Tobacco Use Status: Tobacco use Unknown Smoked in Last 30 Days: No Use of substances other than those prescribed or required for medical reasons: No Advance Directives: No Advance Directives Information Provided: Yes Do you have a plan to hurt others: No Plan Current occupational status: unemployed Current occupation: Right hand dominate Meds Allergies Allergy/AdvReac Type Severity Reaction Status Date / Time No Known Allergies Allergy Verified 10/08/24 07:49 Home Medications ?Medication ?Instructions ?Recorded ?Confirmed ?Last Taken ?Type No Known Home Meds 09/24/23 09/24/23 Unknown History Physical Exam Vital Signs and Narrative: Vital Signs: Last Vital Signs Temp 98.4 F 10/08/24 10:05 Pulse 88 10/08/24 10:05 Resp 16 10/08/24 10:05 BP 134/75 10/08/24 10:05 Pulse Ox 97 10/08/24 10:05 O2 Del Method Room Air 10/08/24 10:05 BMI result Body Mass Index 30.1 General: AOx3, no acute distress Resp: CTA bilaterally CVS: S1, S2, RRR GI: +BS, no distention, LLQ tenderness without rebounding. Skin: Warm, dry Neuro: Cranial nerves II-XII grossly intact bilaterally. Motor grossly intact bilaterally. Sensation to light touch intact of lower extremities bilaterally. Strength 5/5, equal, and symmetric in lower extremities bilaterally. Extremities: No edema Psych: Calm, cooperative Results Labs 10/08/24 08:10 10/08/24 08:10 Labs: Laboratory Results - last 24 hr 10/08/24 10/08/24 08:10 10:18 MCV 78.2 L MCH 23.1 L MCHC 29.5 L RDW 14.9 Plt Count 383 MPV 10.0 Immature Gran % (Auto) 0.4 Neut % (Auto) 74.6 H Lymph % (Auto) 12.0 L [place] % (Auto) 11.7 H Eos % (Auto) 0.9 Baso % (Auto) 0.4 Lymph # (Auto) 1.7 [place] # (Auto) 1.6 H Eos # (Auto) 0.1 Baso # (Auto) 0.1 Abs Immat Gran (auto) 0.05 H Absolute Neuts (auto) 10.4 H Absolute Nucleated RBC 0.000 Nucleated RBC % (auto) 0.0 Smear Tech's Comments VERIFIED ESR 91 H Anion Gap 14 Estim Creat Clear Calc 102.7 Estimated GFR > 60 POC Glucose 118 H Random Glucose 134 H Calcium 9.8 Total Bilirubin 0.7 Direct Bilirubin 0.3 AST 32 ALT 28 Alkaline Phosphatase 100 C-Reactive Protein 11.93 H Total Protein 8.1 H Albumin 4.1 Lipase 12 Stool Occult Blood NEGATIVE Influenza Type A (PCR) NEGATIVE Influenza Type B (PCR) NEGATIVE RSV RNA Qual (PCR) NEGATIVE SARS-CoV-2 RNA (RT-PCR) NEGATIVE Imaging Radiologist's Impressions: Impressions Abdomen/Pelvis CT 10/08/24 09:38 IMPRESSION: 1. Acute diverticulitis in the left lower quadrant involving a short segment of proximal sigmoid colon, with evidence for an adjacent/contiguous infiltrating hypoattenuating mass lesion with direct involvement of an adjacent loop of terminal ileum, with both mesenteric and sheila metastases present. (See above). 2. There are poorly defined hypoattenuating oval lesions throughout the liver as detailed, highly suspicious for metastatic disease. 3. There are nodules in the lung bases measuring up to 8 mm left lower lobe, also suspicious. 4. There are abnormal aortocaval and para-aortic lymph nodes present, suspicious. Findings discussed with Pau Lazo PA-C of the [facility], via phone call at 10:28 AM, 10/08/2024, with findings understood. Electronically signed by: Nicolas Jones MD 10/08/2024 10:29 AM EDT RP Assessment and Plan (1) Acute diverticulitis: Status: Acute Plan Pt is a 54-year-old male without any known significant PMH not on home meds who presents to the ED with?severe left lower quadrant tenderness x2 days. Pt is admitted to the hospital for treatment and further evaluation of acute diverticulitis meeting SIRS criteria. Acute diverticulitis with sepsis Pt with LLQ pain since yesterday, no N/V/D CT of abdomen and pelvis showing acute diverticulitis of short segment of proximal sigmoid colon with adjacent infiltrating mass Meets sepsis criteria with tachycardia and leukocytosis; lactic acid WNL, BP stable Pt given IVF and started on broad-spectrum antibiotics in the ED Will treat with ceftriaxone and metronidazole, started 10/08/2024 Bowel rest, antiemetics, analgesics, IVF General surgery consult Colonic mass CT showing hypoattenuating mass lesion of proximal sigmoid colon With concerns for metastasis to mesentery, lymph nodes, liver, and lung bases No hx of colonoscopy, has not followed with PCP in 20+ years Will check CEA levels Heme/Onc consult Full Code Attending:?Dr. Merino DVT Prophylaxis: Pneumatic compression due to possible surgical intervention for acute diverticulitis Pt will require a hospitalization of at least two nights for treatment of?acute diverticulitis with sepsis in the setting of 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 Pt will require inpatient hospital level of care for administration of IVF, bowel rest, IV antibiotics, IV antiemetics, and IV analgesics. Quality Stroke Does the patient have a stroke diagnosis?: No VTE Prior VTE?: No VTE Risk Level:: Medical - moderate - high VTE Device Contraindication: N/A - Device Ordered VTE Drug Contraindication: Treatment Not Indicated
[2024-10-08] MEDS: Morphine Sulfate 2 MG/ML CARTRIDGE IVPUSH (12:14)
[2024-10-08 12:56] LABS: Iron 17 mcg/dL (45-160); Percent Iron Saturation 6 % (15-50); Total Iron Binding Capacity 282 mcg/dL (228-428); Unsaturated Iron Binding 265 ug/dL
[2024-10-08] MEDS: metroNIDAZOLE/NS 500 MG/100 ML PIGGYBACK 100 MG IV ×2 (13:04→20:28)
--- NOTE | 2024-10-08 13:08 | P.CONGS_ITS ---
History of Present Illness Consult details Consult date: 10/08/24 Narrative: 54-year-old male here in the ER because of left lower quadrant pain. He says that this started yesterday. This had persisted throughout the day and night so he decided to come to the emergency room this morning. He denies any nausea or vomiting. He denies any diarrhea or bleeding per rectum He says that he has had very poor appetite lately and has not had a good bowel movement in 2 days because of poor oral intake He says that he has not seen any primary care physician in over a decade. He was seen by Orthopedic surgery about 3 months ago because of a rotator cuff injury. He denies known medical problems. He denies smoking history. He denies family history of colon cancer He has never had any colonoscopy in the past. Review of Systems 2 Constitutional: Constitutional: Denies chills, Denies fever(s), Reports poor appetite and Reports weakness Cardiovascular: Cardiovascular: Denies chest pain, Denies dyspnea and Denies dyspnea on exertion Respiratory: Respiratory: Denies cough, Denies dyspnea and Denies dyspnea on exertion Gastrointestinal: Gastrointestinal: Denies hematochezia and Denies change in bowel habits Genitourinary: Genitourinary: Denies hematuria and Denies difficulty urinating Musculoskeletal: Musculoskeletal: Denies back pain and Denies limited range of motion Neurologic: Denies focal weakness, Denies convulsions and Reports weakness Psychiatric: Psychiatric: Denies depression and Denies mood swings PMFSH Past Medical History Medical History No pertinent past medical history Surgical History Surgical History Hx of right knee surgery (~2010) Social History Social History Household Members: None Housing: Apartment Do you presently have visiting nurse or other home services: No Patient Tobacco Use Status: Tobacco use Unknown Current occupational status: unemployed Current occupation: Right hand dominate Meds Allergies Allergy/AdvReac Type Severity Reaction Status Date / Time No Known Allergies Allergy Verified 10/08/24 07:49 Active Medications: Current Medications Acetaminophen (Acetaminophen 325 Mg Tablet) 650 mg PO Q6H PRN PRN Reason: Pain, Mild 1-3,fever,headache Calcium Carbonate (Calcium Carbonate 750 Mg Tab.Chew) 750 mg PO Q4H PRN PRN Reason: Heartburn Ceftriaxone Sodium (Ceftriaxone Sodium 1 Gm Vial) 1 gm IVPUSH Q24H [facility] Hydroxyzine HCl (Hydroxyzine Hcl 25 Mg Tablet) 25 mg PO Q6H PRN PRN Reason: Anxiety Metronidazole (Flagyl) 500 mg in 100 mls @ 100 mls/hr IV Q8H [facility] Last Admin: 10/08/24 13:04 Dose: 100 mls/hr Magnesium Hydroxide (Milk Of Magnesia 30 Ml Oral.Susp) 30 ml PO DAILY PRN PRN Reason: Constipation Melatonin (Melatonin 3 Mg Tablet) 6 mg PO BEDTIME PRN PRN Reason: Insomnia Ondansetron HCl (Ondansetron Hcl 4 Mg/2 Ml Vial) 4 mg IVPUSH Q8H PRN PRN Reason: Nausea and Vomiting Sodium Chloride (0.9 % Sodium Chloride Flush 3 Ml Syringe) 3 ml IVFLUSH QSHIFT [facility] Home Medications ?Medication ?Instructions ?Recorded ?Confirmed ?Last Taken ?Type multivitamin 1 tab PO DAILY 10/08/24 10/08/24 1 Week Ago History ~10/01/24 Physical Exam 2 Vital Signs: Vital Signs: Last Vital Signs Temp 98.4 F 10/08/24 10:05 Pulse 80 10/08/24 12:13 Resp 18 10/08/24 12:13 BP 127/81 10/08/24 12:13 Pulse Ox 96 10/08/24 12:13 O2 Del Method Room Air 10/08/24 12:13 BMI result Body Mass Index 30.1 Const: General: comfortable and no acute distress O rientation/consciousness: patient oriented x3 Neck: Neck: Yes no lymphadenopathy Resp: Auscultation: clear to auscultation bilaterally Cardio: Rhythm: regular rhythm GI: Other: Mild tenderness of the left lower quadrant with no rebound or guarding, no obvious palpable mass Palpation (GI): Soft to palpation, Tenderness to palpation present (GI) and no guarding Neuro: General: patient oriented x3 Results Labs 10/09/24 05:30 10/09/24 05:30 Labs: Abnormal lab results 10/08/24 Range/Units 08:10 WBC 13.9 H (4.8-10.8) X10*3/uL Hgb 10.7 L (14.0-18.0) g/dl Hct 36.3 L (42.0-52.0) % MCV 78.2 L (80.0-98.0) fL MCH 23.1 L (27.0-33.0) pg MCHC 29.5 L (31.0-36.0) g/dl Neut % (Auto) 74.6 H (45-73) % Lymph % (Auto) 12.0 L (20-40) % Tift % (Auto) 11.7 H (2-11) % Tift # (Auto) 1.6 H (0.1-1.2) X10*3/uL Abs Immat Gran (auto) 0.05 H (0.00-0.03) X10*3/uL Absolute Neuts (auto) 10.4 H (2.0-8.3) x10*3/uL ESR 91 H (0-15) MM/HR POC Glucose 118 H (60-115) mg/dL Random Glucose 134 H (60-115) mg/dL Iron 17 L (45-160) mcg/dL % Saturation 6 L (15-50) % C-Reactive Protein 11.93 H (< or = 0.50) mg/dL Total Protein 8.1 H (6.5-8.0) g/dL Short CBC 10/08/24 Range/Units 08:10 WBC 13.9 H (4.8-10.8) X10*3/uL Hgb 10.7 L (14.0-18.0) g/dl Hct 36.3 L (42.0-52.0) % Plt Count 383 (160-400) X10*3/uL BMP 10/08/24 08:10 Sodium 135 Potassium 4.6 Chloride 102 Carbon Dioxide 24 BUN 13 Creatinine 0.93 Calcium 9.8 Liver Function 10/08/24 Range/Units 08:10 Total Bilirubin 0.7 (0.0-1.0) mg/dL Direct Bilirubin 0.3 (0.0-0.5) mg/dL AST 32 (5-37) U/L ALT 28 (0-40) U/L Alkaline Phosphatase 100 (39-117) U/L Albumin 4.1 (3.5-5.0) g/dL CAT scan of the abdomen All other labs normal. 1. Acute diverticulitis in the left lower quadrant involving a short segment of proximal sigmoid colon, with evidence for an adjacent/contiguous infiltrating hypoattenuating mass lesion with direct involvement of an adjacent loop of terminal ileum, with both mesenteric and sheila metastases present. (See above). 2. There are poorly defined hypoattenuating oval lesions throughout the liver as detailed, highly suspicious for metastatic disease. 3. There are nodules in the lung bases measuring up to 8 mm left lower lobe, also suspicious. 4. There are abnormal aortocaval and para-aortic lymph nodes present, suspicious. Imaging Abdomen CT scan report/results: report reviewed and image reviewed CT scan - pelvis: report reviewed and image reviewed Assessment and Plan (1) Acute diverticulitis: Status: Acute 54-year-old male here in the ER for left lower quadrant pain. I have reviewed his CAT scan and this shows a short segment of the sigmoid with significant inflammatory changes including thickening, pericolonic stranding suggestive of acute diverticulitis However, his CAT scan also shows a hypoattenuating lesion adjacent to the sigmoid and appearing to be involving the terminal ileum as well. There is extensive lymphadenopathy in the abdomen and the portacaval area. There was note of multiple lesions in the liver suggestive of metastatic disease. He also has small lesions in the base of the lungs. His CEA level is high. He does not appear to be obstructed clinically as well as radiographically. I agree with treating him for acute diverticulitis at this time with an the antibiotics. He should be on some bowel rest. He will benefit from a colonoscopy down the line for diagnostic purposes He should have a full CAT scan of the lungs. He probably will need to have tissue diagnosis of the liver lesions with CT guided biopsy down the line as well. His overall exam is otherwise very benign. I will follow along while he is in the hospital. Procedures Date of Service Date of Service: 10/09/24
[2024-10-08] MEDS: 0.9 % Sodium Chloride 1,000 ML 100 ML IVCONT (13:37)
[2024-10-08 14:09] LABS: Lactate Dehydrogenase 350 U/L (118-273)
--- NOTE | 2024-10-08 14:31 | PM.HEMONCCN ---
Subjective - Subjective Chief complaint: Abdominal pain Patient: new to practice Consult date: 10/08/24 Primary Care Provider: [facility] [employer] Utilized?: No - [place] Speaking HPI - Consult Narrative Reason for consult: Probable metastatic colon cancer Narrative: Paras Hughes is a 54 year old male with no significant past medical history who presented with onset of excruciating abdominal pain since yesterday. Patient describes the pain as left lower quadrant as well as midabdomen pain associated with fatigue and drowsiness most of the day. He denies nausea or vomiting. Patient states that for the last 2 years he has been getting occasional bright red blood in stool. He thought it was related to anxiety after his mother passed 2 years ago. He has not seen a physician in many years. He has never had a screening colonoscopy. He denies weight loss although in the last week or so he has not been eating much. He denies change in caliber of stool or diarrhea a significant change in his bowel habits. Workup in the ED with CT?of abdomen and pelvis found acute diverticulitis of short segment of proximal sigmoid colon with evidence of adjacent/contiguous infiltrating hypoattenuating mass lesion with likely mesenteric and sheila metastasis. Also showed poorly defined hypoattenuating oval lesions throughout liver highly suspicious for metastatic disease. Imaging of lung bases showed nodules measuring up to 8 mm in left lower lobe and abnormal aortocaval and para-aortic lymph nodes, all suspicious for metastatic disease. He denies any family history of cancer. He is only child. He does not know father's side of the family. His mother of liver failure 2 years ago. He has been admitted and being treated for acute diverticulitis with IV fluids and antibiotics. Review of Systems - Constitutional Reports as per HPI, Reports fatigue, Reports lack of energy, Reports malaise - Cardiovascular Reports no additional cardiovascular complaints - Respiratory Reports no additional respiratory complaints - Neurologic Denies focal weakness, Denies convulsions, Reports weakness PMFSH Medical History: Medical History (Last Reviewed 10/08/24 @ 14:05 by DUTCH Navarro) No pertinent past medical history Surgical History: Surgical History (Last Reviewed 10/08/24 @ 14:05 by DUTCH Navarro) Hx of right knee surgery Onset Date: ~2010 Social History: Social History (Last Reviewed 10/08/24 @ 14:05 by TERRANCE Navarro Alcohol History Details: 1. How often do you have a drink containing alcohol?: a. Never Tobacco History: Patient Tobacco Use Status: Tobacco use Unknown Smoked in Last 30 Days: No Substance Use History: Use of substances other than those prescribed or required for medical reasons: No Advance Directives: Advance Directives: No Advance Directives Information Provided: Yes Homicidal Assessment: Do you have a plan to hurt others: No Plan Occupation Assessmet: Current occupational status: unemployed Current occupation: Right hand dominate Home Medications and Allergies Current Medications: Current Medications Acetaminophen (Acetaminophen 325 Mg Tablet) 650 mg PO Q6H PRN PRN Reason: Pain, Mild 1-3,fever,headache Calcium Carbonate (Calcium Carbonate 750 Mg Tab.Chew) 750 mg PO Q4H PRN PRN Reason: Heartburn Ceftriaxone Sodium (Ceftriaxone Sodium 1 Gm Vial) 1 gm IVPUSH Q24H [facility] Hydroxyzine HCl (Hydroxyzine Hcl 25 Mg Tablet) 25 mg PO Q6H PRN PRN Reason: Anxiety Metronidazole (Flagyl) 500 mg in 100 mls @ 100 mls/hr IV Q8H [facility] Last Infusion: 10/08/24 14:02 Dose: Infused Sodium Chloride (Ns) 1,000 mls @ 100 mls/hr IVCONT .Q10H [facility] Last Admin: 10/08/24 13:37 Dose: 100 mls/hr Ketorolac Tromethamine (Ketorolac Tromethamine 30 Mg/Ml Vial) 30 mg IVPUSH Q6H PRN PRN Reason: Pain, Moderate(Pain Scale 4-6) Magnesium Hydroxide (Milk Of Magnesia 30 Ml Oral.Susp) 30 ml PO DAILY PRN PRN Reason: Constipation Melatonin (Melatonin 3 Mg Tablet) 6 mg PO BEDTIME PRN PRN Reason: Insomnia Morphine Sulfate (Morphine Sulfate 2 Mg/Ml Cartridge) 2 mg IVPUSH Q4H PRN; Protocol PRN Reason: Pain, Severe (Pain Scale 7-10) Ondansetron HCl (Ondansetron Hcl 4 Mg/2 Ml Vial) 4 mg IVPUSH Q8H PRN PRN Reason: Nausea and Vomiting Sodium Chloride (0.9 % Sodium Chloride Flush 3 Ml Syringe) 3 [facility] Home Medications ?Medication ?Instructions ?Recorded ?Confirmed ?Type multivitamin 1 tab PO DAILY 10/08/24 10/08/24 History Allergies Allergy/AdvReac Type Severity Reaction Status Date / Time No Known Allergies Allergy Verified 10/08/24 07:49 Physical Exam Vital signs: Vital Signs Temp 97.7 F 10/08/24 13:34 Pulse 83 10/08/24 13:34 Resp 14 10/08/24 13:34 BP 132/81 10/08/24 13:34 Pulse Ox 96 10/08/24 13:34 O2 Del Method Room Air 10/08/24 13:34 Intake & Output 10/07/24 10/08/24 10/08/24 18:59 06:59 18:59 Intake Total 1200 / 1200 Balance 1200 / 1200 Intake: Intake, IV Amount 1200 / 1200 0.9 % Sodium Chloride 1,000 ml 1000 / 1000 @ 999 mls/hr IV .Q1H1M [facility] Rx#: [id number] Piperacillin Sodium/Tazobactam 100 / 100 4.5 gm In 0.9 % Sodium Chloride 100 ml @ 200 mls/hr IV ONCE ONE Rx#:[id number] metroNIDAZOLE/NS 500 mg In 100 100 / 100 ml @ 100 mls/hr IV Q8H [facility] Rx#: [id number] Other: Weight 95.254 kg Weight 95.254 kg - Constitutional Present: mild distress, average body habitus - Routine HEENT Exam Head: Present: normal inspection Eye: Present: EOMI, PERRL - Routine Neck Exam Present: supple. Absent: lymphadenopathy - Routine Respiratory Exam Present: CTAB. Absent: rales, wheezes - Routine Cardiovascular Exam Cardiovascular: Present: RRR, S1, S2 - Routine Abdominal Exam Present: tenderness. Absent: guarding, mass - Routine Skin Exam Present: intact. Absent: jaundice, rash - Routine Neurological Exam Present: alert, oriented X3 Hem/Onc Consult Result - Labs CBC & Chem 7: 10/08/24 08:10 10/08/24 08:10 Labs: Short CBC 10/08/24 Range/Units 08:10 WBC 13.9 H (4.8-10.8) X10*3/uL Hgb 10.7 L (14.0-18.0) g/dl Hct 36.3 L (42.0-52.0) % Plt Count 383 (160-400) X10*3/uL BMP 10/08/24 08:10 Sodium 135 Potassium 4.6 Chloride 102 Carbon Dioxide 24 BUN 13 Creatinine 0.93 Calcium 9.8 Liver Function 10/08/24 Range/Units 08:10 Total Bilirubin 0.7 (0.0-1.0) mg/dL Direct Bilirubin 0.3 (0.0-0.5) mg/dL AST 32 (5-37) U/L ALT 28 (0-40) U/L Alkaline Phosphatase 100 (39-117) U/L Albumin 4.1 (3.5-5.0) g/dL Assessment and Plan Patient Active problem list reviewed?: Yes (1) Colonic mass Status: Acute Assessment and plan: 1. This is a 54-year-old male presenting with left lower abdominal pain, CT imaging shows thickening and irregularity of sigmoid colon along with pericolonic inflammation consistent with acute diverticulitis. Nodular soft tissue in this region extending into terminal ileum, suspect neoplasm. Mesenteric metastasis measuring 3 cm, multiple enlarged richard caval and para-aortic lymph nodes along with multiple liver lesions and lung lesions at the bases consistent with metastasis. CEA elevated at 32.4. At this time, there is no bowel obstruction but it is a possibility down the line. For tissue diagnosis, biopsy of liver lesion can be performed. Diverting colostomy or ileostomy may have to be considered if he develops bowel obstruction. He is being treated for acute diverticulitis. I discussed with the patient probable diagnosis of metastatic colorectal cancer and further diagnostic testing. Continue with current management. 2. Iron-deficiency anemia secondary to GI blood losses. Parenteral iron therapy can be given as outpatient. I thank you for the consultation, will follow with you. - Time Spent With Patient Time Spent with Patient (in minutes): 25 Additional Coding: - Additional E/M codes Complex E/M visit Add On: CPT G2211
--- NOTE | 2024-10-08 14:40 | PHA.MEDREC ---
Addendum entered by Chidi Parks 10/08/24 14:44: reviewed Original Note: Pharmacy Consult ? Medication Reconciliation Pharmacy has completed the medication reconciliation. Spoke with patient and he confirmed he is only taking a Men's Multivitamin once daily but states he has not had it in about 1 week.
[2024-10-08] MEDS: cefTRIAXone sodium 1 GM VIAL IVPUSH (16:53)
[2024-10-09] MEDS: Acetaminophen 325 MG TABLET 650 MG PO (00:04)
[2024-10-09] MEDS: Melatonin 3 MG TABLET 6 MG PO (00:05)
[2024-10-09] MEDS: 0.9 % Sodium Chloride 1,000 ML 100 ML IVCONT ×3 (00:06→22:58)
[2024-10-09 04:00] VITALS: BP 117/65; PULSE 75; RESP 18; TEMP 36; O2SAT 97
[2024-10-09] MEDS: metroNIDAZOLE/NS 500 MG/100 ML PIGGYBACK 100 MG IV ×3 (04:48→20:30)
[2024-10-09 05:48] LABS: Hematocrit 30.7 % (42.0-52.0); Hemoglobin 9.1 g/dl (14.0-18.0); Mean Corpuscular HGB Conc 29.6 g/dl (31.0-36.0); Mean Corpuscular Hemoglobin 23.1 pg (27.0-33.0); Mean Corpuscular Volume 77.9 fL (80.0-98.0); Mean Platelet Volume 9.9 fL (9.4-12.4); Platelet Count 319 X10*3/uL (160-400); Red Blood Count 3.94 X10*6/uL (4.60-5.80); Red Cell Distribution Width 14.7 % (11.0-16.0); White Blood Count 9.3 X10*3/uL (4.8-10.8)
[2024-10-09 06:06] LABS: Anion Gap 13 (12-20); Blood Urea Nitrogen 13 mg/dL (9-16); Calcium 8.6 mg/dL (8.4-10.2); Carbon Dioxide 23 mmol/L (22-29); Chloride 107 mmol/L (96-108); Creatinine Clr Calc Pharmacy 129.3; Estimated Glomerular Filt Rate > 60; Glucose Random 93 mg/dL (60-115); Potassium 4.2 mmol/L (3.3-5.1); Sodium 139 mmol/L (135-145)
[2024-10-09 08:14] VITALS: BP 108/68; PULSE 97; RESP 18; TEMP 36.7; O2SAT 98
--- NOTE | 2024-10-09 08:23 | PM.PNGS ---
Subjective Subjective Date of Service: 10/09/24 Interval history: Overall feels a little better in terms of abdominal pain. Denies flatus or BM. reports depression from mother passing a year ago. Denies prior colonoscopy. Physical Exam Vital Signs: Vital Signs: Last Vital Signs Temp 98.0 F 10/09/24 08:14 Pulse 97 10/09/24 08:14 Resp 18 10/09/24 08:14 BP 108/68 10/09/24 08:14 Pulse Ox 98 10/09/24 08:14 O2 Del Method Room Air 10/09/24 08:14 BMI result Body Mass Index 31.1 Const: General: comfortable, no acute distress and alert Orientation/consciousness: patient oriented x3 Resp: Effort & Inspection: normal respiratory effort GI: Other: abd soft, mild LLQ and suprapubic tenderness no guarding, rebound, distention Skin: General skin exam: no rashes or lesions noted Neuro: General: patient oriented x3 and moves all extremities Objective Data Active Medications Acetaminophen (Acetaminophen 325 Mg Tablet) 650 mg PO Q6H PRN PRN Reason: Pain, Mild 1-3,fever,headache Last Admin: 10/09/24 00:04 Dose: 650 mg Documented By: KEVON Calcium Carbonate (Calcium Carbonate 750 Mg Tab.Chew) 750 mg PO Q4H PRN PRN Reason: Heartburn Ceftriaxone Sodium (Ceftriaxone Sodium 1 Gm Vial) 1 gm IVPUSH Q24H [facility] Last Admin: 10/08/24 16:53 Dose: 1 gm Documented By: DABA Hydroxyzine HCl (Hydroxyzine Hcl 25 Mg Tablet) 25 mg PO Q6H PRN PRN Reason: Anxiety Metronidazole (Flagyl) 500 mg in 100 mls @ 100 mls/hr IV Q8H [facility] Last Infusion: 10/09/24 05:53 Dose: Infused Documented By: KEVON Sodium Chloride (Ns) 1,000 mls @ 100 mls/hr IVCONT .Q10H [facility] Last Admin: 10/09/24 00:06 Dose: 100 mls/hr Documented By: KEVON Ketorolac Tromethamine (Ketorolac Tromethamine 30 Mg/Ml Vial) 30 mg IVPUSH Q6H PRN PRN Reason: Pain, Moderate(Pain Scale 4-6) Magnesium Hydroxide (Milk Of Magnesia 30 Ml Oral.Susp) 30 ml PO DAILY PRN PRN Reason: Constipation Melatonin (Melatonin 3 Mg Tablet) 6 mg PO BEDTIME PRN PRN Reason: Insomnia Last Admin: 10/09/24 00:05 Dose: 6 mg Documented By: KEVON Morphine Sulfate (Morphine Sulfate 2 Mg/Ml Cartridge) 2 mg IVPUSH Q4H PRN; Protocol PRN Reason: Pain, Severe (Pain Scale 7-10) Multivitamins/Vitamin C (Multivitamin Tablet) 1 tab PO DAILY [facility] Ondansetron HCl (Ondansetron Hcl 4 Mg/2 Ml Vial) 4 mg IVPUSH Q8H PRN PRN Reason: Nausea and Vomiting Sodium Chloride (0.9 % Sodium Chloride Flush 3 Ml Syringe) 3 ml IVFLUSH QSHIFT [facility] Last Admin: 10/09/24 07:31 Dose: Not Given Documented By: PATTY Non-Admin Reason: IV Running Labs 10/09/24 05:30 10/09/24 05:30 Labs: Laboratory Results - last 24 hr 10/08/24 10/08/24 10/08/24 08:10 10:18 12:13 MCV MCH MCHC RDW Plt Count MPV Immature Gran % (Auto) 0.4 Neut % (Auto) 74.6 H Lymph % (Auto) 12.0 L [place] % (Auto) 11.7 H Eos % (Auto) 0.9 Baso % (Auto) 0.4 Lymph # (Auto) 1.7 [place] # (Auto) 1.6 H Eos # (Auto) 0.1 Baso # (Auto) 0.1 Abs Immat Gran (auto) 0.05 H Absolute Neuts (auto) 10.4 H Absolute Nucleated RBC 0.000 Nucleated RBC % (auto) 0.0 Smear Tech's Comments VERIFIED ESR 91 H Anion Gap 14 Estim Creat Clear Calc 102.7 Estimated GFR > 60 POC Glucose 118 H Random Glucose 134 H Calcium 9.8 Iron 17 L TIBC 282 % Saturation 6 L Unsat Iron Binding 265 Total Bilirubin 0.7 Direct Bilirubin 0.3 AST 32 ALT 28 Alkaline Phosphatase 100 Lactate Dehydrogenase 350 H C-Reactive Protein 11.93 H Total Protein 8.1 H Albumin 4.1 Lipase 12 Carcinoembryonic Ag 32.40 28.80 Stool Occult Blood NEGATIVE Influenza Type A (PCR) NEGATIVE Influenza Type B (PCR) NEGATIVE RSV RNA Qual (PCR) NEGATIVE SARS-CoV-2 RNA (RT-PCR) NEGATIVE 10/09/24 05:30 MCV 77.9 L MCH 23.1 L MCHC 29.6 L RDW 14.7 Plt Count 319 MPV 9.9 Immature Gran % (Auto) Neut % (Auto) Lymph % (Auto) [place] % (Auto) Eos % (Auto) Baso % (Auto) Lymph # (Auto) [place] # (Auto) Eos # (Auto) Baso # (Auto) Abs Immat Gran (auto) Absolute Neuts (auto) Absolute Nucleated RBC 0.000 Nucleated RBC % (auto) 0.0 Smear Tech's Comments ESR Anion Gap 13 Estim Creat Clear Calc 129.3 Estimated GFR > 60 POC Glucose Random Glucose 93 Calcium 8.6 D Iron TIBC % Saturation Unsat Iron Binding Total Bilirubin Direct Bilirubin AST ALT Alkaline Phosphatase Lactate Dehydrogenase C-Reactive Protein Total Protein Albumin Lipase Carcinoembryonic Ag Stool Occult Blood Influenza Type A (PCR) Influenza Type B (PCR) RSV RNA Qual (PCR) SARS-CoV-2 RNA (RT-PCR) Procedures Date of Service Date of Service: 10/09/24 Progress Note: A&P Assessment and plan (1) Acute diverticulitis: Status: Acute (2) Colonic mass: Status: Acute Plan CEA elevated to 28. Abd is overall benign with mild LLQ/suprapubic tenderness, nondistended, no peritoneal signs. Cont supportive measures and IV abx, can advance to clears as tolerated. Overall diverticulitis seems to be improving. Will need eventual colonoscopy to work up colonic mass, liver biopsy. Patient understands and is comfortable with plan. Time Spent With Patient Time: Total time managing care of this patient today ____ minutes. Quality Stroke Does the patient have a stroke diagnosis?: No VTE Prior VTE?: No VTE Risk Level:: Medical - moderate - high VTE Device Contraindication: N/A - Device Ordered VTE Drug Contraindication: Treatment Not Indicated
--- NOTE | 2024-10-09 08:26 | P.PNGS_ITS ---
Subjective Subjective Date of Service: 10/10/24 Interval history: He says he was very anxious Left lower quadrant pain is much improved No nausea or vomiting Passing flatus Physical Exam 2 Vital Signs: Vital Signs: Last Vital Signs Temp 98.0 F 10/09/24 08:14 Pulse 97 10/09/24 08:14 Resp 18 10/09/24 08:14 BP 108/68 10/09/24 08:14 Pulse Ox 98 10/09/24 08:14 O2 Del Method Room Air 10/09/24 08:14 BMI result Body Mass Index 31.1 Const: General: comfortable and no acute distress Resp: Effort & Inspection: normal respiratory effort Cardio: Rate: regular rate GI: Palpation (GI): Soft to palpation, not firm, Tenderness to palpation present (GI) (Very minimal tenderness on left lower quadrant) and no guarding Objective Data Active Medications Acetaminophen (Acetaminophen 325 Mg Tablet) 650 mg PO Q6H PRN PRN Reason: Pain, Mild 1-3,fever,headache Last Admin: 10/09/24 00:04 Dose: 650 mg Documented By: KEVON Calcium Carbonate (Calcium Carbonate 750 Mg Tab.Chew) 750 mg PO Q4H PRN PRN Reason: Heartburn Ceftriaxone Sodium (Ceftriaxone Sodium 1 Gm Vial) 1 gm IVPUSH Q24H [facility] Last Admin: 10/08/24 16:53 Dose: 1 gm Documented By: DABJarrod Hydroxyzine HCl (Hydroxyzine Hcl 25 Mg Tablet) 25 mg PO Q6H PRN PRN Reason: Anxiety Metronidazole (Flagyl) 500 mg in 100 mls @ 100 mls/hr IV Q8H [facility] Last Infusion: 10/09/24 05:53 Dose: Infused Documented By: KEVON Sodium Chloride (Ns) 1,000 mls @ 100 mls/hr IVCONT .Q10H [facility] Last Admin: 10/09/24 00:06 Dose: 100 mls/hr Documented By: KEVON Ketorolac Tromethamine (Ketorolac Tromethamine 30 Mg/Ml Vial) 30 mg IVPUSH Q6H PRN PRN Reason: Pain, Moderate(Pain Scale 4-6) Magnesium Hydroxide (Milk Of Magnesia 30 Ml Oral.Susp) 30 ml PO DAILY PRN PRN Reason: Constipation Melatonin (Melatonin 3 Mg Tablet) 6 mg PO BEDTIME PRN PRN Reason: Insomnia Last Admin: 10/09/24 00:05 Dose: 6 mg Documented By: KEVON Morphine Sulfate (Morphine Sulfate 2 Mg/Ml Cartridge) 2 mg IVPUSH Q4H PRN; Protocol PRN Reason: Pain, Severe (Pain Scale 7-10) Multivitamins/Vitamin C (Multivitamin Tablet) 1 tab PO DAILY [facility] Ondansetron HCl (Ondansetron Hcl 4 Mg/2 Ml Vial) 4 mg IVPUSH Q8H PRN PRN Reason: Nausea and Vomiting Sodium Chloride (0.9 % Sodium Chloride Flush 3 Ml Syringe) 3 ml IVFLUSH QSHIFT [place] Last Admin: 10/09/24 07:31 Dose: Not Given Documented By: PATTY Non-Admin Reason: IV Running Labs 10/09/24 05:30 10/09/24 05:30 Labs: Laboratory Results - last 24 hr 10/08/24 10/08/24 10/08/24 08:10 10:18 12:13 MCV MCH MCHC RDW Plt Count MPV Immature Gran % (Auto) 0.4 Neut % (Auto) 74.6 H Lymph % (Auto) 12.0 L [place] % (Auto) 11.7 H Eos % (Auto) 0.9 Baso % (Auto) 0.4 Lymph # (Auto) 1.7 [place] # (Auto) 1.6 H Eos # (Auto) 0.1 Baso # (Auto) 0.1 Abs Immat Gran (auto) 0.05 H Absolute Neuts (auto) 10.4 H Absolute Nucleated RBC 0.000 Nucleated RBC % (auto) 0.0 Smear Tech's Comments VERIFIED ESR 91 H Anion Gap 14 Estim Creat Clear Calc 102.7 Estimated GFR > 60 POC Glucose 118 H Random Glucose 134 H Calcium 9.8 Iron 17 L TIBC 282 % Saturation 6 L Unsat Iron Binding 265 Total Bilirubin 0.7 Direct Bilirubin 0.3 AST 32 ALT 28 Alkaline Phosphatase 100 Lactate Dehydrogenase 350 H C-Reactive Protein 11.93 H Total Protein 8.1 H Albumin 4.1 Lipase 12 Carcinoembryonic Ag 32.40 28.80 Stool Occult Blood NEGATIVE Influenza Type A (PCR) NEGATIVE Influenza Type B (PCR) NEGATIVE RSV RNA Qual (PCR) NEGATIVE SARS-CoV-2 RNA (RT-PCR) NEGATIVE 10/09/24 05:30 MCV 77.9 L MCH 23.1 L MCHC 29.6 L RDW 14.7 Plt Count 319 MPV 9.9 Immature Gran % (Auto) Neut % (Auto) Lymph % (Auto) [place] % (Auto) Eos % (Auto) Baso % (Auto) Lymph # (Auto) [place] # (Auto) Eos # (Auto) Baso # (Auto) Abs Immat Gran (auto) Absolute Neuts (auto) Absolute Nucleated RBC 0.000 Nucleated RBC % (auto) 0.0 Smear Tech's Comments ESR Anion Gap 13 Estim Creat Clear Calc 129.3 Estimated GFR > 60 POC Glucose Random Glucose 93 Calcium 8.6 D Iron TIBC % Saturation Unsat Iron Binding Total Bilirubin Direct Bilirubin AST ALT Alkaline Phosphatase Lactate Dehydrogenase C-Reactive Protein Total Protein Albumin Lipase Carcinoembryonic Ag Stool Occult Blood Influenza Type A (PCR) Influenza Type B (PCR) RSV RNA Qual (PCR) SARS-CoV-2 RNA (RT-PCR) Procedures Date of Service Date of Service: 10/10/24 Progress Note: A&P Time Spent With Patient Time: Total time managing care of this patient today ____ minutes. Quality Stroke Does the patient have a stroke diagnosis?: No VTE Prior VTE?: No VTE Risk Level:: Medical - moderate - high VTE Device Contraindication: N/A - Device Ordered VTE Drug Contraindication: Treatment Not Indicated
[2024-10-09] MEDS: Multivitamin TABLET 1 TAB PO (08:36)
--- NOTE | 2024-10-09 09:13 | P.PNIM_ITS ---
Subjective Subjective Date of Service: 10/09/24 Interval History: Reporting some abdominal pain, no blood instool, Physical Exam 2 Vital Signs: Vital Signs: Last Vital Signs Temp 98.0 F 10/09/24 08:14 Pulse 97 10/09/24 08:14 Resp 18 10/09/24 08:14 BP 108/68 10/09/24 08:14 Pulse Ox 98 10/09/24 08:14 O2 Del Method Room Air 10/09/24 08:14 BMI result Body Mass Index 31.1 General: AO X 3, no acute distress Resp: CTA bilateral CVS: S1,S2,RRR GI: +BS, NT, no distention Skin: No rash Neuro: motor grossly intact Psych: appropriate affect Objective Data Active Medications Acetaminophen (Acetaminophen 325 Mg Tablet) 650 mg PO Q6H PRN PRN Reason: Pain, Mild 1-3,fever,headache Last Admin: 10/09/24 00:04 Dose: 650 mg Documented By: KEVON Calcium Carbonate (Calcium Carbonate 750 Mg Tab.Chew) 750 mg PO Q4H PRN PRN Reason: Heartburn Ceftriaxone Sodium (Ceftriaxone Sodium 1 Gm Vial) 1 gm IVPUSH Q24H COUNTS INCLUDE 234 BEDS AT THE [facility] Last Admin: 10/08/24 16:53 Dose: 1 gm Documented By: DABJarrod Hydroxyzine HCl (Hydroxyzine Hcl 25 Mg Tablet) 25 mg PO Q6H PRN PRN Reason: Anxiety Metronidazole (Flagyl) 500 mg in 100 mls @ 100 mls/hr IV Q8H COUNTS INCLUDE 234 BEDS AT THE [facility] Last Infusion: 10/09/24 05:53 Dose: Infused Documented By: KEVON Sodium Chloride (Ns) 1,000 mls @ 100 mls/hr IVCONT .Q10H COUNTS INCLUDE 234 BEDS AT THE [facility] Last Admin: 10/09/24 00:06 Dose: 100 mls/hr Documented By: KEVON Ketorolac Tromethamine (Ketorolac Tromethamine 30 Mg/Ml Vial) 30 mg IVPUSH Q6H PRN PRN Reason: Pain, Moderate(Pain Scale 4-6) Magnesium Hydroxide (Milk Of Magnesia 30 Ml Oral.Susp) 30 ml PO DAILY PRN PRN Reason: Constipation Melatonin (Melatonin 3 Mg Tablet) 6 mg PO BEDTIME PRN PRN Reason: Insomnia Last Admin: 10/09/24 00:05 Dose: 6 mg Documented By: KEVON Morphine Sulfate (Morphine Sulfate 2 Mg/Ml Cartridge) 2 mg IVPUSH Q4H PRN; Protocol PRN Reason: Pain, Severe (Pain Scale 7-10) Multivitamins/Vitamin C (Multivitamin Tablet) 1 tab PO DAILY [facility]S [facility]CLUDE 234 BEDS AT THE [facility] Last Admin: 10/09/24 08:36 Dose: 1 tab Documented By: PATTY Ondansetron HCl (Ondansetron Hcl 4 Mg/2 Ml Vial) 4 mg IVPUSH Q8H PRN PRN Reason: Nausea and Vomiting Sodium Chloride (0.9 % Sodium Chloride Flush 3 Ml Syringe) 3 ml IVFLUSH QSHIFT COUNTS INCLUDE 234 BEDS AT THE [facility] Last Admin: 10/09/24 07:31 Dose: Not Given Documented By: PATTY Non-Admin Reason: IV Running Labs 10/09/24 05:30 10/09/24 05:30 Labs: Laboratory Results - last 24 hr 10/08/24 10/08/24 10/08/24 08:10 10:18 12:13 MCV MCH MCHC RDW Plt Count MPV Absolute Nucleated RBC Nucleated RBC % (auto) ESR 91 H Anion Gap Estim Creat Clear Calc Estimated GFR Random Glucose Calcium Iron 17 L TIBC 282 % Saturation 6 L Unsat Iron Binding 265 Lactate Dehydrogenase 350 H C-Reactive Protein 11.93 H Carcinoembryonic Ag 32.40 28.80 Stool Occult Blood NEGATIVE 10/09/24 05:30 MCV 77.9 L MCH 23.1 L MCHC 29.6 L RDW 14.7 Plt Count 319 MPV 9.9 Absolute Nucleated RBC 0.000 Nucleated RBC % (auto) 0.0 ESR Anion Gap 13 Estim Creat Clear Calc 129.3 Estimated GFR > 60 Random Glucose 93 Calcium 8.6 D Iron TIBC % Saturation Unsat Iron Binding Lactate Dehydrogenase C-Reactive Protein Carcinoembryonic Ag Stool Occult Blood Assessment and Plan (1) Acute diverticulitis: Status: Acute (2) Colonic mass: Status: Acute Plan Pt is a 54-year-old male without any known significant PMH not on home meds who presents to the ED with?severe left lower quadrant tenderness x2 days. Pt is admitted to the hospital for treatment and further evaluation of acute diverticulitis meeting SIRS criteria. Acute diverticulitis with sepsis continue Ceftriaxone and Metronidazol 10/08/24- Surgery following Colonic mass CT showing hypoattenuating mass lesion of proximal sigmoid colon With concerns for metastasis to mesentery, lymph nodes, liver, and lung bases CEA level is high at 28 No hx of colonoscopy, has not followed with PCP in 20+ years Likely mets disease, will ultimately need biopsy once infection under control Full Code DVT Prophylaxis: Pneumatic compression due to possible surgical intervention for acute diverticulitis Pt will require a hospitalization of at least two nights for treatment of?acute diverticulitis with sepsis in the setting of 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 Pt will require inpatient hospital level of care for administration of IVF, bowel rest, IV antibiotics, IV antiemetics, and IV analgesics. Quality Stroke Does the patient have a stroke diagnosis?: No VTE Prior VTE?: No VTE Risk Level:: Medical - moderate - high VTE Device Contraindication: N/A - Device Ordered VTE Drug Contraindication: Treatment Not Indicated
--- NOTE | 2024-10-09 12:50 | MHC.CM.PN ---
PT LIVES ALONE AND IS INDEPENDENT WITH CARE HE HAS NO DME AND NO SERVICES PT HAS NO PCP AND REFUSES TO COMPLETE A HCP AT THIS TIME IMM DELIVERED DCP: HOME NO SERVICES PT REPORTS HE WILL BE ABLE TO GET A RIDE
[2024-10-09 15:48] VITALS: BP 116/64; PULSE 83; RESP 18; TEMP 36.6; O2SAT 97
[2024-10-09] MEDS: cefTRIAXone sodium 1 GM VIAL IVPUSH (16:39)
[2024-10-09 19:52] VITALS: BP 104/62; PULSE 70; RESP 16; TEMP 36.1; O2SAT 96
[2024-10-09] MEDS: Ketorolac Tromethamine 30 MG/ML VIAL IVPUSH (23:03)
[2024-10-10] MEDS: hydrOXYzine HCL 25 MG TABLET PO (00:07)
[2024-10-10] MEDS: Morphine Sulfate 2 MG/ML CARTRIDGE IVPUSH (03:22)
[2024-10-10 03:40] VITALS: BP 129/77; PULSE 72; RESP 17; TEMP 36; O2SAT 96
[2024-10-10] MEDS: metroNIDAZOLE/NS 500 MG/100 ML PIGGYBACK 100 MG IV ×3 (04:36→20:47)
[2024-10-10 06:59] VITALS: BP 112/72; PULSE 69; RESP 15; TEMP 36.8; O2SAT 97
[2024-10-10] MEDS: Multivitamin TABLET 1 TAB PO (08:49)
[2024-10-10] MEDS: 0.9 % Sodium Chloride 1,000 ML 100 ML IVCONT ×2 (08:53→18:42)
--- NOTE | 2024-10-10 08:54 | HO.PM.IMPN ---
Subjective Subjective Date of Service: 10/10/24 Interval History: Pain is overall better, tolerating some liquid diet Physical Exam Vital Signs: Vital Signs: Last Vital Signs Temp 98.2 F 10/10/24 06:59 Pulse 69 10/10/24 06:59 Resp 15 10/10/24 06:59 BP 112/72 10/10/24 06:59 Pulse Ox 97 10/10/24 06:59 O2 Del Method Room Air 10/10/24 06:59 BMI result Body Mass Index 31.1 General: AO X 3, no acute distress Resp: CTA bilateral CVS: S1,S2,RRR GI: +BS, NT, no distention Skin: No rash Neuro: motor grossly intact Psych: appropriate affect Objective Data Active Medications Acetaminophen (Acetaminophen 325 Mg Tablet) 650 mg PO Q6H PRN PRN Reason: Pain, Mild 1-3,fever,headache Last Admin: 10/09/24 00:04 Dose: 650 mg Documented By: KEVON Calcium Carbonate (Calcium Carbonate 750 Mg Tab.Chew) 750 mg PO Q4H PRN PRN Reason: Heartburn Ceftriaxone Sodium (Ceftriaxone Sodium 1 Gm Vial) 1 gm IVPUSH Q24H [facility] Last Admin: 10/09/24 16:39 Dose: 1 gm Documented By: PATTY Hydroxyzine HCl (Hydroxyzine Hcl 25 Mg Tablet) 25 mg PO Q6H PRN PRN Reason: Anxiety Last Admin: 10/10/24 00:07 Dose: 25 mg Documented By: KEVON Metronidazole (Flagyl) 500 mg in 100 mls @ 100 mls/hr IV Q8H [facility] Last Infusion: 10/10/24 05:40 Dose: Infused Documented By: KEVON Sodium Chloride (Ns) 1,000 mls @ 100 mls/hr IVCONT .Q10H [facility] Last Admin: 10/09/24 22:58 Dose: 100 mls/hr Documented By: KEVON Ketorolac Tromethamine (Ketorolac Tromethamine 30 Mg/Ml Vial) 30 mg IVPUSH Q6H PRN PRN Reason: Pain, Moderate(Pain Scale 4-6) Last Admin: 10/09/24 23:03 Dose: 30 mg Documented By: KEVON Magnesium Hydroxide (Milk Of Magnesia 30 Ml Oral.Susp) 30 ml PO DAILY PRN PRN Reason: Constipation Melatonin (Melatonin 3 Mg Tablet) 6 mg PO BEDTIME PRN PRN Reason: Insomnia Last Admin: 10/09/24 00:05 Dose: 6 mg Documented By: KEVON Morphine Sulfate (Morphine Sulfate 2 Mg/Ml Cartridge) 2 mg IVPUSH Q4H PRN; Protocol PRN Reason: Pain, Severe (Pain Scale 7-10) Last Admin: 10/10/24 03:22 Dose: 2 mg Documented By: KEVON Multivitamins/Vitamin C (Multivitamin Tablet) 1 tab PO DAILY [facility] Last Admin: 10/09/24 08:36 Dose: 1 tab Documented By: PATTY Ondansetron HCl (Ondansetron Hcl 4 Mg/2 Ml Vial) 4 mg IVPUSH Q8H PRN PRN Reason: Nausea and Vomiting Sodium Chloride (0.9 % Sodium Chloride Flush 3 Ml Syringe) 3 ml IVFLUSH QSHIFT [facility] Last Admin: 10/10/24 07:23 Dose: Not Given Documented By: KRISTEN Non-Admin Reason: IV Running Labs 10/09/24 05:30 10/09/24 05:30 Assessment and Plan (1) Acute diverticulitis: Status: Acute (2) Colonic mass: Status: Acute Plan Pt is a 54-year-old male without any known significant PMH not on home meds who presents to the ED with?severe left lower quadrant tenderness x2 days. Pt is admitted to the hospital for treatment and further evaluation of acute diverticulitis meeting SIRS criteria. 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 Pt will require inpatient hospital level of care for administration of IVF, bowel rest, IV antibiotics, IV antiemetics, and IV analgesics. Quality Stroke Does the patient have a stroke diagnosis?: No VTE Prior VTE?: No VTE Risk Level:: Medical - moderate - high VTE Device Contraindication: N/A - Device Ordered VTE Drug Contraindication: Treatment Not Indicated
--- NOTE | 2024-10-10 12:03 | PM.HEMONCPN ---
Medical Summary - Medical Summary Date of Service: 10/10/24 Chief complaint: colon cancer Primary Care Provider: [facility] Medical Summary: He is aware of the tumor an the metastases. He is sad but appropriate. His questions were answered today. He will need a tissue diagnosis. The LLQ pain is unchanged. 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 Patient describes the pain as left lower quadrant as well as midabdomen pain associated with fatigue and drowsiness most of the day. He denies nausea or vomiting. Patient states that for the last 2 years he has been getting occasional bright red blood in stool. He thought it was related to anxiety after his mother passed 2 years ago. He has not seen a physician in many years. He has never had a screening colonoscopy. He denies weight loss although in the last week or so he has not been eating much. He denies change in caliber of stool or diarrhea a significant change in his bowel habits. Workup in the ED with CT?of abdomen and pelvis found acute diverticulitis of short segment of proximal sigmoid colon with evidence of adjacent/contiguous infiltrating hypoattenuating mass lesion with likely mesenteric and sheila metastasis. Also showed poorly defined hypoattenuating oval lesions throughout liver highly suspicious for metastatic disease. Imaging of lung bases showed nodules measuring up to 8 mm in left lower lobe and abnormal aortocaval and para-aortic lymph nodes, all suspicious for metastatic disease. He denies any family history of cancer. He is only child. He does not know father's side of the family. His mother of liver failure 2 years ago. He has been admitted and being treated for acute diverticulitis with IV fluids and antibiotics. Review of Systems - Constitutional Reports anorexia - Cardiovascular Reports shortness of breath when lying down - Respiratory Reports dyspnea - Gastrointestinal Reports abdominal pain - Genitourinary Genitourinary: Reports urinary urgency - Musculoskeletal Reports muscle weakness - Neurologic Reports weakness, Denies focal weakness, Denies convulsions [facility] Medical History: Medical History (Last Reviewed 10/08/24 @ 14:05 by DUTCH Navarro) No pertinent past medical history Surgical History: Surgical History (Last Reviewed 10/08/24 @ 14:05 by DUTCH Navarro) Hx of right knee surgery Onset Date: ~2010 Social History: Social History (Last Reviewed 10/08/24 @ 14:05 by DUTCH Navarro) Living Situation History: Household Members: None Housing: Apartment Do you presently have visiting nurse or other home services: No Tobacco History: Patient Tobacco Use Status: Tobacco use Unknown Occupation Assessmet: service: No Current occupational status: unemployed Current occupation: Right hand dominate Home Medications and Allergies Current Medications: Current Medications Acetaminophen (Acetaminophen 325 Mg Tablet) 650 mg PO Q6H PRN PRN Reason: Pain, Mild 1-3,fever,headache Last Admin: 10/09/24 00:04 Dose: 650 mg Calcium Carbonate (Calcium Carbonate 750 Mg Tab.Chew) 750 mg PO Q4H PRN PRN Reason: Heartburn Ceftriaxone Sodium (Ceftriaxone Sodium 1 Gm Vial) 1 gm IVPUSH Q24H [facility] Last Admin: 10/09/24 16:39 Dose: 1 gm Hydroxyzine HCl (Hydroxyzine Hcl 25 Mg Tablet) 25 mg PO Q6H PRN PRN Reason: Anxiety Last Admin: 10/10/24 00:07 Dose: 25 mg Metronidazole (Flagyl) 500 mg in 100 mls @ 100 mls/hr IV Q8H [facility] Last Infusion: 10/10/24 05:40 Dose: Infused Sodium Chloride (Ns) 1,000 mls @ 100 mls/hr IVCONT .Q10H [facility] Last Admin: 10/10/24 08:53 Dose: 100 mls/hr Ketorolac Tromethamine (Ketorolac Tromethamine 30 Mg/Ml Vial) 30 mg IVPUSH Q6H PRN PRN Reason: Pain, Moderate(Pain Scale 4-6) Last Admin: 10/09/24 23:03 Dose: 30 mg Magnesium Hydroxide (Milk Of Magnesia 30 Ml Oral.Susp) 30 ml PO DAILY PRN PRN Reason: Constipation Melatonin (Melatonin 3 Mg Tablet) 6 mg PO BEDTIME PRN PRN Reason: Insomnia Last Admin: 10/09/24 00:05 Dose: 6 mg Morphine Sulfate (Morphine Sulfate 2 Mg/Ml Cartridge) 2 mg IVPUSH Q4H PRN; Protocol PRN Reason: Pain, Severe (Pain Scale 7-10) Last Admin: 10/10/24 03:22 Dose: 2 mg Multivitamins/Vitamin C (Multivitamin Tablet) 1 tab PO DAILY [facility] Last Admin: 10/10/24 08:49 Dose: 1 tab Ondansetron HCl (Ondansetron Hcl 4 Mg/2 Ml Vial) 4 mg IVPUSH Q8H PRN PRN Reason: Nausea and Vomiting Sodium Chloride (0.9 % Sodium Chloride Flush 3 Ml Syringe) 3 ml IVFLUSH QSHIFT [facility] Last Admin: 10/10/24 07:23 Dose: Not Given Home Medications ?Medication ?Instructions ?Recorded ?Confirmed ?Type multivitamin 1 tab PO DAILY 10/08/24 10/08/24 History Allergies Allergy/AdvReac Type Severity Reaction Status Date / Time No Known Allergies Allergy Verified 10/08/24 07:49 Exam Vital signs: Vital Signs Temp 98.2 F 10/10/24 06:59 Pulse 69 10/10/24 06:59 Resp 15 10/10/24 06:59 BP 112/72 10/10/24 06:59 Pulse Ox 97 10/10/24 06:59 O2 Del Method Room Air 10/10/24 06:59 Intake & Output 10/09/24 10/10/24 10/10/24 18:59 06:59 18:59 Intake Total 1100 / 2720 1620 / 2720 991.667 / 991.667 Output Total 400 / 2150 1750 / 2150 Balance 700 / 570 -130 / 570 991.667 / 991.667 Urine Output (Average ml/kg/hr) 0.34 1.48 1.48 Intake: Intake, Oral Amount 420 / 420 Intake, IV Amount 1100 / 2300 1200 / 2300 991.667 / 991.667 metroNIDAZOLE/NS 500 mg In 100 100 / 300 200 / 300 ml @ 100 mls/hr IV Q8H [facility] Rx#: [id number] 0.9 % Sodium Chloride 1,000 ml 1000 / 2000 1000 / 2000 991.667 / 991.667 @ 100 mls/hr IVCONT .Q10H [facility] Rx#:[id number] Output: Output, Urine Amount 400 / 2150 1750 / 2150 Other: NPO Yes Number of Unmeasured Voids 2 Urine Urinal Bathroom Urine Color Yellow Yellow Last Bowel Movement 10/07/24 Weight 98.4 kg BMI result Body Mass Index 31.1 - Constitutional Present: no acute distress, mild distress, average body habitus - Routine HEENT Exam Head: Present: atraumatic, normal inspection - Routine Neck Exam Present: full ROM - Routine Respiratory Exam Present: decreased breath sounds, CTAB. Absent: rales, wheezes - Routine Cardiovascular Exam Cardiovascular: Present: RRR, S1, S2 - Routine Abdominal Exam Present: diminished bowel sounds, tenderness. Absent: guarding, mass - Routine Extremities Exam Present: nontender - Routine Skin Exam Present: intact. Absent: jaundice, rash - Routine Neurological Exam Present: alert, oriented X3 Data - Labs CBC & Chem 7: 10/09/24 05:30 10/09/24 05:30 Labs: Laboratory Last Values WBC 9.3 X10*3/uL (4.8-10.8) 10/09/24 05:30 RBC 3.94 X10*6/uL (4.60-5.80) L 10/09/24 05:30 Hgb 9.1 g/dl (14.0-18.0) L 10/09/24 05:30 Hct 30.7 % (42.0-52.0) L 10/09/24 05:30 MCV 77.9 fL (80.0-98.0) L 10/09/24 05:30 MCH 23.1 pg (27.0-33.0) L 10/09/24 05:30 MCHC 29.6 g/dl (31.0-36.0) L 10/09/24 05:30 RDW 14.7 % (11.0-16.0) 10/09/24 05:30 Plt Count 319 X10*3/uL (160-400) 10/09/24 05:30 MPV 9.9 fL (9.4-12.4) 10/09/24 05:30 Immature Gran % (Auto) 0.4 % (0.0-0.4) 10/08/24 08:10 Neut % (Auto) 74.6 % (45-73) H 10/08/24 08:10 Lymph % (Auto) 12.0 % (20-40) L 10/08/24 08:10 [place] % (Auto) 11.7 % (2-11) H 10/08/24 08:10 Eos % (Auto) 0.9 % (0-4) 10/08/24 08:10 Baso % (Auto) 0.4 % (0-2) 10/08/24 08:10 Lymph # (Auto) 1.7 X10*3/uL (1.2-4.9) 10/08/24 08:10 [place] # (Auto) 1.6 X10*3/uL (0.1-1.2) H 10/08/24 08:10 Eos # (Auto) 0.1 X10*3/uL (0.0-0.4) 10/08/24 08:10 Baso # (Auto) 0.1 X10*3/uL (0.0-0.2) 10/08/24 08:10 Abs Immat Gran (auto) 0.05 X10*3/uL (0.00-0.03) H 10/08/24 08:10 Absolute Neuts (auto) 10.4 x10*3/uL (2.0-8.3) H 10/08/24 08:10 Absolute Nucleated RBC 0.000 X10*3/uL (0.0-0.012) 10/09/24 05:30 Nucleated RBC % (auto) 0.0 /100WBC (0.0-0.2) 10/09/24 05:30 Smear Tech's Comments VERIFIED 10/08/24 08:10 ESR 91 MM/HR (0-15) H 10/08/24 08:10 Sodium 139 mmol/L (135-145) 10/09/24 05:30 Potassium 4.2 mmol/L (3.3-5.1) 10/09/24 05:30 Chloride 107 mmol/L (96-108) 10/09/24 05:30 Carbon Dioxide 23 mmol/L (22-29) 10/09/24 05:30 Anion Gap 13 (12-20) 10/09/24 05:30 BUN 13 mg/dL (9-16) 10/09/24 05:30 Creatinine 0.75 mg/dL (0.5-1.4) 10/09/24 05:30 Estim Creat Clear Calc 129.3 10/09/24 05:30 Estimated GFR > 60 10/09/24 05:30 POC Glucose 118 mg/dL (60-115) H 10/08/24 08:10 Random Glucose 93 mg/dL (60-115) 10/09/24 05:30 Calcium 8.6 mg/dL (8.4-10.2) D 10/09/24 05:30 Iron 17 mcg/dL (45-160) L 10/08/24 08:10 TIBC 282 mcg/dL (228-428) 10/08/24 08:10 % Saturation 6 % (15-50) L 10/08/24 08:10 Unsat Iron Binding 265 ug/dL 10/08/24 08:10 Total Bilirubin 0.7 mg/dL (0.0-1.0) 10/08/24 08:10 Direct Bilirubin 0.3 mg/dL (0.0-0.5) 10/08/24 08:10 AST 32 U/L (5-37) 10/08/24 08:10 ALT 28 U/L (0-40) 10/08/24 08:10 Alkaline Phosphatase 100 U/L (39-117) 10/08/24 08:10 Lactate Dehydrogenase 350 U/L (118-273) H 10/08/24 08:10 C-Reactive Protein 11.93 mg/dL (< or = 0.50) H 10/08/24 08:10 Total Protein 8.1 g/dL (6.5-8.0) H 10/08/24 08:10 Albumin 4.1 g/dL (3.5-5.0) 10/08/24 08:10 Lipase 12 U/L (8-78) 10/08/24 08:10 Carcinoembryonic Ag 28.80 ng/mL 10/08/24 12:13 Stool Occult Blood NEGATIVE (NEGATIVE) 10/08/24 10:18 Influenza Type A (PCR) NEGATIVE (Negative) 10/08/24 08:10 Influenza Type B (PCR) NEGATIVE (Negative) 10/08/24 08:10 RSV RNA Qual (PCR) NEGATIVE (Negative) 10/08/24 08:10 SARS-CoV-2 RNA (RT-PCR) NEGATIVE (Negative) 10/08/24 08:10 - Imaging Radiologist's impression: ITS Impressions Abdomen/Pelvis CT 10/08/24 09:38 IMPRESSION: 1. Acute diverticulitis in the left lower quadrant involving a short segment of proximal sigmoid colon, with evidence for an adjacent/contiguous infiltrating hypoattenuating mass lesion with direct involvement of an adjacent loop of terminal ileum, with both mesenteric and sheila metastases present. (See above). 2. There are poorly defined hypoattenuating oval lesions throughout the liver as detailed, highly suspicious for metastatic disease. 3. There are nodules in the lung bases measuring up to 8 mm left lower lobe, also suspicious. 4. There are abnormal aortocaval and para-aortic lymph nodes present, suspicious. Findings discussed with Pau Lazo PA-C of the [facility], via phone call at 10:28 AM, 10/08/2024, with findings understood. Electronically signed by: Nicolas Jones MD 10/08/2024 10:29 AM EDT RP Assessment and Plan Patient Active problem list reviewed?: Yes (1) Colonic mass Status: Acute Assessment and plan: 1. This is a 54-year-old male presenting with left lower abdominal pain, CT imaging shows thickening and irregularity of sigmoid colon along with pericolonic inflammation consistent with acute diverticulitis. Nodular soft tissue in this region extending into terminal ileum, suspect neoplasm. Mesenteric metastasis measuring 3 cm, multiple enlarged richard caval and para-aortic lymph nodes along with multiple liver lesions and lung lesions at the bases consistent with metastasis. CEA elevated at 32.4. At this time, there is no bowel obstruction but it is a possibility down the line. For tissue diagnosis, biopsy of liver lesion can be performed. Diverting colostomy or ileostomy may have to be considered if he develops bowel obstruction. He is being treated for acute diverticulitis. I discussed with the patient probable diagnosis of metastatic colorectal cancer and further diagnostic testing. Continue with current management. 2. Iron-deficiency anemia secondary to GI blood losses. Parenteral iron therapy can be given as outpatient. I thank you for the consultation, will follow with you. - Time Spent With Patient Time Spent with Patient (in minutes): 20
[2024-10-10 15:05] VITALS: BP 108/60; PULSE 73; RESP 18; TEMP 37.2; O2SAT 95
--- NOTE | 2024-10-10 15:31 | PM.PNGS ---
Subjective Subjective Date of Service: 10/11/24 Interval history: Depressed Says he has no energy Abdominal pain seems resolved No other GI complaints Physical Exam Vital Signs: Vital Signs: Last Vital Signs Temp 99 F 10/10/24 15:05 Pulse 73 10/10/24 15:05 Resp 18 10/10/24 15:05 BP 108/60 10/10/24 15:05 Pulse Ox 95 10/10/24 15:05 O2 Del Method Room Air 10/10/24 15:05 BMI result Body Mass Index 31.1 Const: General: comfortable and no acute distress Resp: Effort & Inspection: normal respiratory effort Cardio: Rate: regular rate GI: Inspection: No distended Palpation (GI): Soft to palpation, not firm, nontender and no guarding Objective Data Active Medications Acetaminophen (Acetaminophen 325 Mg Tablet) 650 mg PO Q6H PRN PRN Reason: Pain, Mild 1-3,fever,headache Last Admin: 10/09/24 00:04 Dose: 650 mg Documented By: KEVON Calcium Carbonate (Calcium Carbonate 750 Mg Tab.Chew) 750 mg PO Q4H PRN PRN Reason: Heartburn Ceftriaxone Sodium (Ceftriaxone Sodium 1 Gm Vial) 1 gm IVPUSH Q24H [facility] Last Admin: 10/09/24 16:39 Dose: 1 gm Documented By: PATTY Hydroxyzine HCl (Hydroxyzine Hcl 25 Mg Tablet) 25 mg PO Q6H PRN PRN Reason: Anxiety Last Admin: 10/10/24 00:07 Dose: 25 mg Documented By: KEVON Metronidazole (Flagyl) 500 mg in 100 mls @ 100 mls/hr IV Q8H [facility] Last Infusion: 10/10/24 13:25 Dose: Infused Documented By: KRISTEN Sodium Chloride (Ns) 1,000 mls @ 100 mls/hr IVCONT .Q10H [facility] Last Admin: 10/10/24 15:24 Dose: Not Given Documented By: KRISTEN Non-Admin Reason: previous IV bag running Ketorolac Tromethamine (Ketorolac Tromethamine 30 Mg/Ml Vial) 30 mg IVPUSH Q6H PRN PRN Reason: Pain, Moderate(Pain Scale 4-6) Last Admin: 10/09/24 23:03 Dose: 30 mg Documented By: KEVON Magnesium Hydroxide (Milk Of Magnesia 30 Ml Oral.Susp) 30 ml PO DAILY PRN PRN Reason: Constipation Melatonin (Melatonin 3 Mg Tablet) 6 mg PO BEDTIME PRN PRN Reason: Insomnia Last Admin: 10/09/24 00:05 Dose: 6 mg Documented By: KEVON Morphine Sulfate (Morphine Sulfate 2 Mg/Ml Cartridge) 2 mg IVPUSH Q4H PRN; Protocol PRN Reason: Pain, Severe (Pain Scale 7-10) Last Admin: 10/10/24 03:22 Dose: 2 mg Documented By: KEVON Multivitamins/Vitamin C (Multivitamin Tablet) 1 tab PO DAILY [facility] Last Admin: 10/10/24 08:49 Dose: 1 tab Documented By: KRISTEN Ondansetron HCl (Ondansetron Hcl 4 Mg/2 Ml Vial) 4 mg IVPUSH Q8H PRN PRN Reason: Nausea and Vomiting Sodium Chloride (0.9 % Sodium Chloride Flush 3 Ml Syringe) 3 ml IVFLUSH QSHIFT [facility] Last Admin: 10/10/24 14:50 Dose: Not Given Documented By: KRISTEN Non-Admin Reason: IV Running Labs 10/09/24 05:30 10/09/24 05:30 Procedures Date of Service Date of Service: 10/11/24 Progress Note: A&P Assessment and plan (1) Acute diverticulitis: Status: Acute Assessment and Plan: Pain and tenderness seems resolved Abdomen is soft and benign Looks well but depressed Await further workup for liver lesions, colon mass Clinically not obstructed On clear liquids Time Spent With Patient Time: Total time managing care of this patient today ____ minutes. Quality Stroke Does the patient have a stroke diagnosis?: No VTE Prior VTE?: No VTE Risk Level:: Medical - moderate - high VTE Device Contraindication: N/A - Device Ordered VTE Drug Contraindication: Treatment Not Indicated
[2024-10-10] MEDS: cefTRIAXone sodium 1 GM VIAL IVPUSH (16:39)
[2024-10-10 17:12] LABS: Appearance Urine Clear; Color Urine Yellow; Glucose Urine UA Negative (Negative); Leukocyte Esterase Urine Negative (Negative); Nitrite Urine Negative (Negative); PH 7.5 (5.0-9.0); Specific Gravity - Urine <= 1.005 (1.005-1.025); Urine Blood Negative (Negative); Urine Ketones Negative (Negative); Urine Protein Negative (Neg-Trace)
[2024-10-10 19:32] VITALS: BP 113/64; PULSE 74; RESP 18; TEMP 37.1; O2SAT 97
[2024-10-11 03:02] VITALS: BP 121/76; PULSE 70; RESP 18; TEMP 36.9; O2SAT 94
[2024-10-11] MEDS: 0.9 % Sodium Chloride 1,000 ML 100 ML IVCONT (04:49)
[2024-10-11] MEDS: metroNIDAZOLE/NS 500 MG/100 ML PIGGYBACK 100 MG IV ×3 (04:49→20:07)
[2024-10-11 07:20] VITALS: BP 130/78; PULSE 65; RESP 18; TEMP 36.7; O2SAT 94
[2024-10-11] MEDS: Multivitamin TABLET 1 TAB PO (08:00)
--- NOTE | 2024-10-11 09:19 | PM.PNGS ---
Subjective Subjective Date of Service: 10/11/24 Interval history: No new complaints Says his left lower quadrant pain is very minimal Still seems depressed Physical Exam Vital Signs: Vital Signs: Last Vital Signs Temp 98.1 F 10/11/24 07:20 Pulse 65 10/11/24 07:20 Resp 18 10/11/24 07:20 BP 130/78 10/11/24 07:20 Pulse Ox 94 10/11/24 07:20 O2 Del Method Room Air 10/11/24 07:20 BMI result Body Mass Index 31.1 Const: General: comfortable and no acute distress Resp: Effort & Inspection: normal respiratory effort Cardio: Rate: regular rate GI: Palpation (GI): Soft to palpation, not firm, nontender and no guarding Objective Data Active Medications Acetaminophen (Acetaminophen 325 Mg Tablet) 650 mg PO Q6H PRN PRN Reason: Pain, Mild 1-3,fever,headache Last Admin: 10/09/24 00:04 Dose: 650 mg Documented By: KEVON Calcium Carbonate (Calcium Carbonate 750 Mg Tab.Chew) 750 mg PO Q4H PRN PRN Reason: Heartburn Ceftriaxone Sodium (Ceftriaxone Sodium 1 Gm Vial) 1 gm IVPUSH Q24H [facility] Last Admin: 10/10/24 16:39 Dose: 1 gm Documented By: KRISTEN Hydroxyzine HCl (Hydroxyzine Hcl 25 Mg Tablet) 25 mg PO Q6H PRN PRN Reason: Anxiety Last Admin: 10/10/24 00:07 Dose: 25 mg Documented By: KEVON Metronidazole (Flagyl) 500 mg in 100 mls @ 100 mls/hr IV Q8H [facility] Last Infusion: 10/11/24 05:54 Dose: Infused Documented By: KEVON Sodium Chloride (Ns) 1,000 mls @ 100 mls/hr IVCONT .Q10H [facility] Last Admin: 10/11/24 04:49 Dose: 100 mls/hr Documented By: KEVON Ketorolac Tromethamine (Ketorolac Tromethamine 30 Mg/Ml Vial) 30 mg IVPUSH Q6H PRN PRN Reason: Pain, Moderate(Pain Scale 4-6) Last Admin: 10/09/24 23:03 Dose: 30 mg Documented By: KEVON Magnesium Hydroxide (Milk Of Magnesia 30 Ml Oral.Susp) 30 ml PO DAILY PRN PRN Reason: Constipation Melatonin (Melatonin 3 Mg Tablet) 6 mg PO BEDTIME PRN PRN Reason: Insomnia Last Admin: 10/09/24 00:05 Dose: 6 mg Documented By: KEVON Morphine Sulfate (Morphine Sulfate 2 Mg/Ml Cartridge) 2 mg IVPUSH Q4H PRN; Protocol PRN Reason: Pain, Severe (Pain Scale 7-10) Last Admin: 10/10/24 03:22 Dose: 2 mg Documented By: KEVON Multivitamins/Vitamin C (Multivitamin Tablet) 1 tab PO DAILY [facility] Last Admin: 10/11/24 08:00 Dose: 1 tab Documented By: KRISTEN Ondansetron HCl (Ondansetron Hcl 4 Mg/2 Ml Vial) 4 mg IVPUSH Q8H PRN PRN Reason: Nausea and Vomiting Sodium Chloride (0.9 % Sodium Chloride Flush 3 Ml Syringe) 3 ml IVFLUSH QSHIFT [facility] Last Admin: 10/11/24 07:01 Dose: Not Given Documented By: KRISTEN Non-Admin Reason: IV Running Labs 10/09/24 05:30 10/09/24 05:30 Labs: Laboratory Results - last 24 hr 10/10/24 16:46 Urine Color Yellow Urine Appearance Clear Urine pH 7.5 Ur Specific [place] <= 1.005 Urine Protein Negative Urine Glucose (UA) Negative Urine Ketones Negative Urine Blood Negative Urine Nitrite Negative Ur Leukocyte Esterase Negative Procedures Date of Service Date of Service: 10/11/24 Progress Note: A&P Assessment and plan (1) Acute diverticulitis: Status: Acute Assessment and Plan: Symptoms seems resolved Okay to advance to full liquids He may be ready to have CT biopsy of the liver Continue antibiotic for now exam remains very benign Time Spent With Patient Time: Total time managing care of this patient today ____ minutes. Quality Stroke Does the patient have a stroke diagnosis?: No VTE Prior VTE?: No VTE Risk Level:: Medical - moderate - high VTE Device Contraindication: N/A - Device Ordered VTE Drug Contraindication: Treatment Not Indicated
--- NOTE | 2024-10-11 09:36 | HO.PM.IMPN ---
Subjective Subjective Date of Service: 10/11/24 Interval History: Pain is overall better, tolerating some liquid diet Physical Exam Vital Signs: Vital Signs: Last Vital Signs Temp 98.1 F 10/11/24 07:20 Pulse 65 10/11/24 07:20 Resp 18 10/11/24 07:20 BP 130/78 10/11/24 07:20 Pulse Ox 94 10/11/24 07:20 O2 Del Method Room Air 10/11/24 07:20 BMI result Body Mass Index 31.1 General: AO X 3, no acute distress Resp: CTA bilateral CVS: S1,S2,RRR GI: +BS, NT, no distention Skin: No rash Neuro: motor grossly intact Psych: appropriate affect Objective Data Active Medications Acetaminophen (Acetaminophen 325 Mg Tablet) 650 mg PO Q6H PRN PRN Reason: Pain, Mild 1-3,fever,headache Last Admin: 10/09/24 00:04 Dose: 650 mg Documented By: KEVON Calcium Carbonate (Calcium Carbonate 750 Mg Tab.Chew) 750 mg PO Q4H PRN PRN Reason: Heartburn Ceftriaxone Sodium (Ceftriaxone Sodium 1 Gm Vial) 1 gm IVPUSH Q24H [facility] Last Admin: 10/10/24 16:39 Dose: 1 gm Documented By: KRISTEN Hydroxyzine HCl (Hydroxyzine Hcl 25 Mg Tablet) 25 mg PO Q6H PRN PRN Reason: Anxiety Last Admin: 10/10/24 00:07 Dose: 25 mg Documented By: KEVON Metronidazole (Flagyl) 500 mg in 100 mls @ 100 mls/hr IV Q8H [facility] Last Infusion: 10/11/24 05:54 Dose: Infused Documented By: KEVON Sodium Chloride (Ns) 1,000 mls @ 100 mls/hr IVCONT .Q10H [facility] Last Admin: 10/11/24 04:49 Dose: 100 mls/hr Documented By: KEVON Ketorolac Tromethamine (Ketorolac Tromethamine 30 Mg/Ml Vial) 30 mg IVPUSH Q6H PRN PRN Reason: Pain, Moderate(Pain Scale 4-6) Last Admin: 10/09/24 23:03 Dose: 30 mg Documented By: KEVON Magnesium Hydroxide (Milk Of Magnesia 30 Ml Oral.Susp) 30 ml PO DAILY PRN PRN Reason: Constipation Melatonin (Melatonin 3 Mg Tablet) 6 mg PO BEDTIME PRN PRN Reason: Insomnia Last Admin: 10/09/24 00:05 Dose: 6 mg Documented By: KEVON Morphine Sulfate (Morphine Sulfate 2 Mg/Ml Cartridge) 2 mg IVPUSH Q4H PRN; Protocol PRN Reason: Pain, Severe (Pain Scale 7-10) Last Admin: 10/10/24 03:22 Dose: 2 mg Documented By: KEVON Multivitamins/Vitamin C (Multivitamin Tablet) 1 tab PO DAILY [facility] Last Admin: 10/11/24 08:00 Dose: 1 tab Documented By: KRISTEN Ondansetron HCl (Ondansetron Hcl 4 Mg/2 Ml Vial) 4 mg IVPUSH Q8H PRN PRN Reason: Nausea and Vomiting Sodium Chloride (0.9 % Sodium Chloride Flush 3 Ml Syringe) 3 ml IVFLUSH QSHIFT [facility] Last Admin: 10/11/24 07:01 Dose: Not Given Documented By: KRISTEN Non-Admin Reason: IV Running Labs 10/09/24 05:30 10/09/24 05:30 Labs: Laboratory Results - last 24 hr 10/10/24 16:46 Urine Color Yellow Urine Appearance Clear Urine pH 7.5 Ur Specific [place] <= 1.005 Urine Protein Negative Urine Glucose (UA) Negative Urine Ketones Negative Urine Blood Negative Urine Nitrite Negative Ur Leukocyte Esterase Negative Assessment and Plan (1) Acute diverticulitis: Status: Acute (2) Colonic mass: Status: Acute Plan Pt is a 54-year-old male without any known significant PMH not on home meds who presents to the ED with?severe left lower quadrant tenderness x2 days. Pt is admitted to the hospital for treatment and further evaluation of acute diverticulitis meeting SIRS criteria. Acute diverticulitis with sepsis continue Ceftriaxone and Metronidazol 10/08/24- Surgery following advance diet as ronald Colonic mass CT showing hypoattenuating mass lesion of proximal sigmoid colon With concerns for metastasis to mesentery, lymph nodes, liver, and lung bases CEA level is high at 28 No hx of colonoscopy, has not followed with PCP in 20+ years Likely mets disease, will ultimately need biopsy once infection under control Full Code DVT Prophylaxis: add heparin Pt will require a hospitalization of at least two nights for treatment of?acute diverticulitis with sepsis in the setting of 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 Pt will require inpatient hospital level of care for administration of IVF, bowel rest, IV antibiotics, IV antiemetics, and IV analgesics. Quality Stroke Does the patient have a stroke diagnosis?: No VTE Prior VTE?: No VTE Risk Level:: Medical - moderate - high VTE Device Contraindication: N/A - Device Ordered VTE Drug Contraindication: Treatment Not Indicated
--- NOTE | 2024-10-11 11:34 | PM.HEMONCPN ---
Medical Summary - Medical Summary Date of Service: 10/11/24 Primary Care Provider: [facility] Medical Summary: He is aware of the tumor and the metastases. He is sad but appropriate. His questions were answered today. He will need a tissue diagnosis. The LLQ pain is unchanged. He has begun to take oral ourishment. The pain is unchanged but controlled. He seems stable. Suggest colonoscopy for tissue and degree of stenosis. Pharmacy Tech Customer Service Utilized?: No - British Speaking Interval History Interval history: Paras Hughes is a 54 year old male with no significant past medical history who presented with onset of excruciating abdominal pain since yesterday. Patient describes the pain as left lower quadrant as well as midabdomen pain associated with fatigue and drowsiness most of the day. He denies nausea or vomiting. Patient states that for the last 2 years he has been getting occasional bright red blood in stool. He thought it was related to anxiety after his mother passed 2 years ago. He has not seen a physician in many years. He has never had a screening colonoscopy. He denies weight loss although in the last week or so he has not been eating much. He denies change in caliber of stool or diarrhea a significant change in his bowel habits. Workup in the ED with CT?of abdomen and pelvis found acute diverticulitis of short segment of proximal sigmoid colon with evidence of adjacent/contiguous infiltrating hypoattenuating mass lesion with likely mesenteric and sheila metastasis. Also showed poorly defined hypoattenuating oval lesions throughout liver highly suspicious for metastatic disease. Imaging of lung bases showed nodules measuring up to 8 mm in left lower lobe and abnormal aortocaval and para-aortic lymph nodes, all suspicious for metastatic disease. He denies any family history of cancer. He is only child. He does not know father's side of the family. His mother of liver failure 2 years ago. He has been admitted and being treated for acute diverticulitis with IV fluids and antibiotics. Review of Systems - Constitutional Reports anorexia - ENT Reports system reviewed and no additional complaints, except as documented - Cardiovascular Reports shortness of breath - Respiratory Reports dyspnea on exertion - Gastrointestinal Reports abdominal pain - Genitourinary Genitourinary: Reports urinary frequency - Musculoskeletal Reports body aches - Neurologic Reports weakness, Denies focal weakness, Denies convulsions [facility] Medical History: Medical History (Last Reviewed 10/08/24 @ 14:05 by DUTCH Navarro) No pertinent past medical history Surgical History: Surgical History (Last Reviewed 10/08/24 @ 14:05 by DUTCH Navarro) Hx of right knee surgery Onset Date: ~2010 Social History: Social History (Last Reviewed 10/08/24 @ 14:05 by DUTCH Navarro) Living Situation History: Household Members: None Housing: Apartment Do you presently have visiting nurse or other home services: No Tobacco History: Patient Tobacco Use Status: Tobacco use Unknown Occupation Assessmet: service: No Current occupational status: unemployed Current occupation: Right hand dominate Home Medications and Allergies Current Medications: Current Medications Acetaminophen (Acetaminophen 325 Mg Tablet) 650 mg PO Q6H PRN PRN Reason: Pain, Mild 1-3,fever,headache Last Admin: 10/09/24 00:04 Dose: 650 mg Calcium Carbonate (Calcium Carbonate 750 Mg Tab.Chew) 750 mg PO Q4H PRN PRN Reason: Heartburn Ceftriaxone Sodium (Ceftriaxone Sodium 1 Gm Vial) 1 gm IVPUSH Q24H [facility] Last Admin: 10/10/24 16:39 Dose: 1 gm Heparin Sodium (Porcine) (Heparin Sodium,Porcine 5,000 Unit/Ml Vial) 5,000 unit SUBCUT Q8H [place] Hydroxyzine HCl (Hydroxyzine Hcl 25 Mg Tablet) 25 mg PO Q6H PRN PRN Reason: Anxiety Last Admin: 10/10/24 00:07 Dose: 25 mg Metronidazole (Flagyl) 500 mg in 100 mls @ 100 mls/hr IV Q8H [facility] Last Infusion: 10/11/24 05:54 Dose: Infused Sodium Chloride (Ns) 1,000 mls @ 100 mls/hr IVCONT .Q10H [facility] Last Admin: 10/11/24 04:49 Dose: 100 mls/hr Ketorolac Tromethamine (Ketorolac Tromethamine 30 Mg/Ml Vial) 30 mg IVPUSH Q6H PRN PRN Reason: Pain, Moderate(Pain Scale 4-6) Last Admin: 10/09/24 23:03 Dose: 30 mg Magnesium Hydroxide (Milk Of Magnesia 30 Ml Oral.Susp) 30 ml PO DAILY PRN PRN Reason: Constipation Melatonin (Melatonin 3 Mg Tablet) 6 mg PO BEDTIME PRN PRN Reason: Insomnia Last Admin: 10/09/24 00:05 Dose: 6 mg Morphine Sulfate (Morphine Sulfate 2 Mg/Ml Cartridge) 2 mg IVPUSH Q4H PRN; Protocol PRN Reason: Pain, Severe (Pain Scale 7-10) Last Admin: 10/10/24 03:22 Dose: 2 mg Multivitamins/Vitamin C (Multivitamin Tablet) 1 tab PO DAILY [facility] Last Admin: 10/11/24 08:00 Dose: 1 tab Ondansetron HCl (Ondansetron Hcl 4 Mg/2 Ml Vial) 4 mg IVPUSH Q8H PRN PRN Reason: Nausea and Vomiting Sodium Chloride (0.9 % Sodium Chloride Flush 3 Ml Syringe) 3 ml IVFLUSH QSHIFT [facility] Last Admin: 10/11/24 07:01 Dose: Not Given Home Medications ?Medication ?Instructions ?Recorded ?Confirmed ?Type multivitamin 1 tab PO DAILY 10/08/24 10/08/24 History Allergies Allergy/AdvReac Type Severity Reaction Status Date / Time No Known Allergies Allergy Verified 10/08/24 07:49 Exam Vital signs: Vital Signs Temp 98.1 F 10/11/24 07:20 Pulse 65 10/11/24 07:20 Resp 18 10/11/24 07:20 BP 130/78 10/11/24 07:20 Pulse Ox 94 10/11/24 07:20 O2 Del Method Room Air 10/11/24 07:20 Intake & Output 10/10/24 10/11/24 10/11/24 18:59 06:59 18:59 Intake Total 2553.334 / 3873.334 1320 / 3873.334 Output Total 900 / 2500 1600 / 2500 Balance 1653.334 / 1373.334 -280 / 1373.334 Urine Output (Average ml/kg/hr) 0.76 1.36 1.36 Intake: Intake, Oral Amount 480 / 600 120 / 600 Intake, IV Amount 2073.334 / 3273.334 1200 / 3273.334 metroNIDAZOLE/NS 500 mg In 100 100 / 300 200 / 300 ml @ 100 mls/hr IV Q8H [facility] Rx#: [id number] 0.9 % Sodium Chloride 1,000 ml 1973.334 / 2973.334 1000 / 2973.334 @ 100 mls/hr IVCONT .Q10H [facility] Rx#:[id number] Output: Output, Urine Amount 900 / 2500 1600 / 2500 Other: Meal Refused No NPO No Breakfast % Eaten 100% Lunch % Eaten 100% Dinner % Eaten 75% Eating (Feeding) Ability Independent Number of Unmeasured Voids 2 Urine Urinal Urinal Urine Color Erica Yellow Last Bowel Movement 10/10/24 10/10/24 Stool Bathroom Stool Amount Moderate Stool Color Brown Stool Consistency Formed Weight 98.4 kg BMI result Body Mass Index 31.1 - Constitutional Present: no acute distress, mild distress, average body habitus - Routine HEENT Exam Head: Present: atraumatic, normal inspection - Routine Neck Exam Present: full ROM - Routine Chest/Breast/Axilla Exam Breast: Present: Normal Exam - Routine Respiratory Exam Present: decreased breath sounds, CTAB. Absent: rales, wheezes - Routine Cardiovascular Exam Cardiovascular: Present: RRR, S1, S2 - Routine Abdominal Exam Present: diminished bowel sounds, tenderness. Absent: guarding, mass - Routine Extremities Exam Present: nontender - Routine Skin Exam Present: intact. Absent: jaundice, rash - Routine Neurological Exam Present: alert, oriented X3 Data - Labs CBC & Chem 7: 10/09/24 05:30 10/09/24 05:30 - Imaging Radiologist's impression: ITS Impressions Abdomen/Pelvis CT 10/08/24 09:38 IMPRESSION: 1. Acute diverticulitis in the left lower quadrant involving a short segment of proximal sigmoid colon, with evidence for an adjacent/contiguous infiltrating hypoattenuating mass lesion with direct involvement of an adjacent loop of terminal ileum, with both mesenteric and sheila metastases present. (See above). 2. There are poorly defined hypoattenuating oval lesions throughout the liver as detailed, highly suspicious for metastatic disease. 3. There are nodules in the lung bases measuring up to 8 mm left lower lobe, also suspicious. 4. There are abnormal aortocaval and para-aortic lymph nodes present, suspicious. Findings discussed with Pau Lazo PA-C of the [facility], via phone call at 10:28 AM, 10/08/2024, with findings understood. Electronically signed by: Nicolas Jones MD 10/08/2024 10:29 AM EDT RP Assessment and Plan Patient Active problem list reviewed?: Yes (1) Colonic mass Status: Acute Assessment and plan: 1. This is a 54-year-old male presenting with left lower abdominal pain, CT imaging shows thickening and irregularity of sigmoid colon along with pericolonic inflammation consistent with acute diverticulitis. Nodular soft tissue in this region extending into terminal ileum, suspect neoplasm. Mesenteric metastasis measuring 3 cm, multiple enlarged richard caval and para-aortic lymph nodes along with multiple liver lesions and lung lesions at the bases consistent with metastasis. CEA elevated at 32.4. At this time, there is no bowel obstruction but it is a possibility down the line. For tissue diagnosis, biopsy of liver lesion can be performed. Diverting colostomy or ileostomy may have to be considered if he develops bowel obstruction. He is being treated for acute diverticulitis. I discussed with the patient probable diagnosis of metastatic colorectal cancer and further diagnostic testing. Continue with current management. 2. Iron-deficiency anemia secondary to GI blood losses. Parenteral iron therapy can be given as outpatient. I thank you for the consultation, will follow with you. - Time Spent With Patient Time Spent with Patient (in minutes): 15
[2024-10-11] MEDS: Heparin Sodium,Porcine 5,000 UNIT/ML VIAL 5000 UNIT SUBCUT ×2 (12:50→20:07)
[2024-10-11 16:00] VITALS: BP 127/80; PULSE 77; RESP 16; TEMP 37.4; O2SAT 98
[2024-10-11] MEDS: cefTRIAXone sodium 1 GM VIAL IVPUSH (17:16)
[2024-10-11 19:41] VITALS: BP 110/57; PULSE 86; RESP 18; TEMP 38.9; O2SAT 96
[2024-10-11] MEDS: Acetaminophen 325 MG TABLET 650 MG PO (20:08)
[2024-10-11] MEDS: 0.9 % Sodium Chloride Flush 3 ML SYRINGE IVFLUSH (20:08)
[2024-10-11 21:12] VITALS: TEMP 37.5
[2024-10-12 04:23] VITALS: BP 110/67; PULSE 92; RESP 14; TEMP 36.7; O2SAT 94
[2024-10-12] MEDS: metroNIDAZOLE/NS 500 MG/100 ML PIGGYBACK 100 MG IV (05:30)
[2024-10-12] MEDS: Heparin Sodium,Porcine 5,000 UNIT/ML VIAL 5000 UNIT SUBCUT (05:34)
[2024-10-12 07:40] VITALS: BP 103/70; PULSE 84; RESP 16; TEMP 36.6; O2SAT 92
[2024-10-12 08:08] LABS: INTERNATIONAL NORM RATIO 1.6 (0.9-1.1); Prothrombin Time 18.9 SEC (10.9-12.4)
--- NOTE | 2024-10-12 09:47 | PM.DS ---
DS: Providers Provider Date of Service: 10/12/24 Date of admission: 10/08/24 12:10 Date of discharge: 10/12/24 Primary care physician: [facility] Consults: 10/08/24 11:52 Consult to Hematology / Oncology Stat Consulting Provider: [facility]ology Reason for consultation: colic mass w/ mets to liver/ lung 10/08/24 12:43 Consult to General Surgery Routine Consulting Provider: [facility] Reason for consultation: Acute diverticulitis w/adjacent mass suspicious for cancer Consult to Hematology / Oncology Routine Consulting Provider: [facility] Oncology/Hematology Reason for consultation: Suscious colon mass w/ suspicion for liver and lung mets DS: Diagnosis Discharge Diagnosis (1) Colonic mass: Status: Acute DS: Summary Hospital Course Hospital Course: admission hpi Chief Complaint: Abd pain Pt is a 54-year-old male without any known significant PMH not on home meds who presents to the ED with?severe left lower quadrant tenderness x2 days. Pt reports symptoms began yesterday morning and lasted throughout the day. Also felt lightheaded, fatigued, and drowsy during most of the day. In the evening had a prolonged episode of left lower extremity tightness and cramping in thigh, calf, and ankle that was alleviated with OTC muscle creme. This morning symptoms persisted which prompted pt coming to the ED for further evaluation. Denies nausea, vomiting, diarrhea. No fever or chills. No chest pain/pressure, palpitations. Denies difficulty breathing or SOB. Reports occasional lightheadedness and feeling fatigued for the past few years. Has also occasionally noticed small amounts of bright red blood in his stool, but none recently. Denies any recent unintended weight loss. No night sweats. Has never had a colonoscopy before and reports has not followed with a PCP in the past 20+ years. Of note, pt reports has been feeling increasingly anxious due to the recent passing of his mother. In the ED pt was tachycardic up to 91 and initially hypertensive at 153/92, vitals otherwise stable and WNL. Labs were significant for leukocytosis of 13 point, H&H 10.7/36.3, MCV 78.2, ESR 91, and CRP 11.93. Stool negative for occult blood. No significant electrolyte abnormalities. Renal function WNL. Hepatic function WNL. Tested negative for flu, COVID, and RSV. CT?of abdomen and pelvis found acute diverticulitis of short segment of proximal sigmoid colon with evidence of adjacent/contiguous infiltrating hypoattenuating mass lesion with likely mesenteric and sheila metastasis. Also showed poorly defined hypoattenuating oval lesions throughout liver highly suspicious for metastatic disease. Imaging of lung bases showed nodules measuring up to 8 mm in left lower lobe and abnormal aortocaval and para-aortic lymph nodes, all suspicious for metastatic disease. Pt was treated in the ED with IVF, ketorolac, and Zosyn. Pt is admitted to the hospital for treatment and further evaluation of acute diverticulitis meeting SIRS criteria. hospital course: Pt is a 54-year-old male without any known significant PMH not on home meds who presents to the ED with?severe left lower quadrant tenderness x2 days. Work up revealed diverticulitis and colon mass with liver lesion concern for metastatic colon cancer Acute diverticulitis with sepsis, treated with Ceftriaxone and Metronidazol 10/08/24- to 10/12, improved, no pain, and diet is been advanced to regular diet and to finish a 7 day course of antibiotics with transtion to oral Ceftin and oral Flagyl for 3 more days. Was seen by surgery and no indication for surgery at this time. Colonic mass CT showing hypoattenuating mass lesion of proximal sigmoid colon With concerns for metastasis to mesentery, lymph nodes, liver, and lung bases CEA level is high at 28 No hx of colonoscopy, has not followed with PCP in 20+ years Likely mets disease. Biopsy will be done on outpatient basis and oncolgoy will arrange for outpatient follow up antibody Time Attestation Discharge Coordination Time (in mins): 40 Quality: Safe Use of Opioids Does Pt have an Active Cancer Diagnosis on the Problem List?: No Quality: Stroke Does the patient have a stroke diagnosis?: No Physical Exam Vital Signs: Vital Signs: Last Vital Signs Temp 97.9 F 10/12/24 07:40 Pulse 84 10/12/24 07:40 Resp 16 10/12/24 07:40 BP 103/70 10/12/24 07:40 Pulse Ox 92 10/12/24 07:40 O2 Del Method Room Air 10/12/24 07:40 BMI result Body Mass Index 31.1 DS: Data Data Completed and Pending Labs on day of discharge: Laboratory Results - last 24 hr 10/12/24 07:46 Hold Purple Top SEE NOTE PT 18.9 H INR 1.6 H Discharge Plan Discharge Anticipated Discharge Date/Time: 10/12/24 13:23 Patient Disposition: Home, Self-Care Discharge Diagnosis: acute diverticulitis, anemia, colon mass, liver lesion Referrals: [facility] [Primary Care Provider] - 1 Week Discharge Medications: New metronidazole 500 mg Tablet 500 mg PO Q8H Qty: 9 0RF cefuroxime axetil 500 mg tablet 500 mg PO BID 4 Days Qty: 8 0RF Continued multivitamin Tablet 1 tab PO DAILY Discharge Orders: Discharge Order (Routine); Ordered 10/12/24 Ordered By: Bryant Foreman Diet: Advance to usual diet Activity on Discharge: As tolerated Stand Alone Forms: Patient Portal Discharge page Print Language: Citizen Of [place] Other Ambulatory Orders: CT biopsy liver (Routine) Timeframe: 1 Week Facility: [facility] - Location: CT Scan Ordered By: Pam Granda Care Plan Goals: recovery from acute diverticulitis work up of colon and liver mass Health Concerns: colon mass, liver lesion acute diverticulitis Plan of Treatment: take ceftin and flagyl as directed follow up with oncologyy Dr. Granda, you will be arrange to get a biopsy done Assessment: see above Discharge Date/Time: 10/12/24 14:45
[2024-10-12] MEDS: metroNIDAZOLE 500 MG TABLET PO (13:09)
--- NOTE | 2024-10-12 13:23 | PC.NURSE ---
Pt updated on plan of care and possible d/c by this RN after ten o'clock rounds. Pt states he understands he will be DC'd if tolerates lunch and will f/u with out pt biopsy.
--- NOTE | 2024-10-12 13:42 | MHC.CM.PN ---
Per MD patient medically cleared for dc home self care. Will transport via shuttle at 1445. RN aware. IMM delivered.
== END 2024-10-12 14:45 | disposition home or self-care (01) | DRG 872 ==
LOC: HO.ED 12:54 → HO.EDOVER 12:54 → HO.S3 15:06
PROVIDERS: Internal Medicine; Physician Assistant Medical; Student in an Organized Health Care Education/Training Program; Admitting Provider Student in an Organized Health Care Education/Training Program; Emergency Provider Emergency Medicine; Visit Provider Internal Medicine
DX: A41.9 Sepsis, unspecified organism (principal); K57.32 Diverticulitis of large intestine without perforation or abscess without bleeding; C17.2 Malignant neoplasm of ileum; C77.8 Secondary and unspecified malignant neoplasm of lymph nodes of multiple regions; C78.7 Secondary malignant neoplasm of liver and intrahepatic bile duct; C78.02 Secondary malignant neoplasm of left lung; C78.01 Secondary malignant neoplasm of right lung; D50.0 Iron deficiency anemia secondary to blood loss (chronic); Z79.899 Other long term (current) drug therapy
CPT/HCPCS: 0241U; 36415; 74177; 80048; 80076; 81003; 82272; 82378; 82947; 83540; 83615; 83690; 85025; 85027; 85610; 85652; 86140; 99285; J0696; J1644; J1836; J1885; J2270; J2543; Q9967

== ENCOUNTER → 2024-10-08 09:19 | Outpatient (BNV) | payer MEDICARE, MEDICAID, SELFPAY | PROVIDERS: Emergency Provider Emergency Medicine; Visit Provider Radiology Diagnostic Radiology | DX: R10.9 Unspecified abdominal pain (principal) | CPT/HCPCS: 74177 ==

== ENCOUNTER → 2024-10-08 12:10 | Outpatient (BNV) | payer MEDICARE, MEDICAID, SELFPAY | PROVIDERS: Admitting Provider Student in an Organized Health Care Education/Training Program; Emergency Provider Emergency Medicine; Visit Provider Student in an Organized Health Care Education/Training Program | DX: K57.92 Diverticulitis of intestine, part unspecified, without perforation or abscess without bleeding (principal); K63.89 Other specified diseases of intestine | CPT/HCPCS: 99223; 99232 ==

== ENCOUNTER → 2024-10-08 12:10 | Outpatient (BNV) | payer MEDICARE, MEDICAID, SELFPAY | PROVIDERS: Admitting Provider Student in an Organized Health Care Education/Training Program; Emergency Provider Emergency Medicine; Visit Provider Physician Assistant Surgical | DX: K57.92 Diverticulitis of intestine, part unspecified, without perforation or abscess without bleeding (principal) | CPT/HCPCS: 99222; 99231; 99232 ==

== ENCOUNTER → 2024-10-08 12:10 | Outpatient (BNV) | payer MEDICARE, MEDICAID, SELFPAY | PROVIDERS: Admitting Provider Student in an Organized Health Care Education/Training Program; Emergency Provider Emergency Medicine; Visit Provider Internal Medicine | DX: C18.9 Malignant neoplasm of colon, unspecified (principal) | CPT/HCPCS: 99222 ==

== ENCOUNTER → 2024-10-16 14:18 | Outpatient (BNV) | payer MEDICARE, MEDICAID, SELFPAY | PROVIDERS: Visit Provider Internal Medicine | DX: K63.89 Other specified diseases of intestine (principal); D64.9 Anemia, unspecified | CPT/HCPCS: 99214; G2211 ==

== ENCOUNTER 2024-10-20 11:21 | Day surgery (SDC) | payer MEDICARE, MEDICAID, SELFPAY ==
--- OUTSIDE RECORDS SUMMARY | 2024-10-15 16:22 | XMS_ITS | Clinical Summary ---
Author Organization [employer] Address [address] [place] [address] [address] [place] [address] Care Team Providers Care Campaign Worker Name Role Phone Unavailable Primary Care Provider Unavailabl e Encounters Date Type Department Care Team Description 10/08/2024 Orders Only GENERIC EXTERNAL DATA DEPARTMENT Provider, Generic External Data from Last 3 Months Social History Tobacco Use Types Packs/Day Years Used Date Smoking Tobacco: Never Assessed Sex and Gender Information Value Date Recorded Sex Assigned at Male 04/16/2022 10:33 AM EDT Legal Sex Male 10:33 AM EDT Gender Identity Not on file Sexual Orientation Not on file Plan of Treatment Health Maintenance Due Date Last Done Comments CT Colonography 1968 Colonoscopy 1968 Colorectal Cancer Screening 1968 Depression Screening 1968 FIT DNA/Cologuard 1968 FIT 1968 FOBT 1968 Lipid Panel 1968 Sigmoidoscopy 1968 Alcohol/Substance Use Screening 1980 Tobacco Screening 1980 DTaP/Tdap/Td Vaccines (1 - Tdap) 1987 Hepatitis B Vaccines (1 of 3 - 19+ 3-dose series) 1987 Pneumococcal Vaccine: 50+ Ye ars (1 of 1 - PCV) 2018 Zoster Vaccines (1 of 2) 2018 COVID-19 Vaccine ( - 2023-2 5 season) 2024 Influenza Vaccine (#1) 2024 RSV Patients and Pa tients Aged 60 years or older (1 - 1-dose 75+ series) 2043 HIB Vaccines Aged Out No longer eligi ble based on patient's age to complete this topic HPV Vaccines Aged Out No longer eligi ble based on patient's age to complete this topic Hepatitis A Vaccines Aged Out No long er eligible based on patient's age to complete this topic IPV Vaccines Aged Out No longer eligi ble based on patient's age to complete this topic Meningococcal Vaccine Aged Out No nessa radha eligible based on patient's age to complete this topic RSV under 20 months Aged Out No longe r eligible based on patient's age to complete this topic Rotavirus Vaccines Aged Out No longer eligible based on patient's age to complete this topic Procedures Procedure Name Priority Date/Time Associated Diagnosis Comments OBSX1 Routine 10/08/2024 10:[address] ABDOMEN PELVIS W CONTRAST Routine 10/08/2024 9:38 AM EDT SED RATE BY MODIFIED WESTERGREN Routine 10/08/2024 8:10 AM EDT C-REACTIVE PROTEIN Routine 10/08/2024 8: 10 AM EDT SLIDE REVIEW Routine 10/08/2024 8:10 AM EDT LIPASE Routine 10/08/2024 8:10 AM EDT BASIC METABOLIC PANEL Routine 10/08/2024 8:10 AM EDT HEPATIC FUNCTION PANEL Routine 10/08/2024 8:10 AM EDT CBC WITH AUTO DIFFERENTIAL Routine 10/08/2024 8:10 AM EDT GLUCOSE, WHOLE BLOOD Routine 10/08/2024 8:10 AM EDT SARS COV2/INFLUENZA A/B AND RSV RNA QL NAAT Routine 10/08/2024 8:10 AM EDT from Last 3 Months Results * OBSX1 (10/08/2024 10:18 AM EDT) OBS1 NEGATIVE NEGATIVE [facility] 10/08/2024 10:1 8 AM EDT 10/08/2024 10:23 AM EDT us Generic External Data Provider LAB BLOOD ORDERAB LES Final Result [facility] [address] [place] [address] [phone] * CT Abdomen Pelvis w/ Contrast (10/08/2024 9:38 AM EDT) Anatomical Region Laterality Modality Body, Pelvis, Abdomen Computed T omography 10/08/2024 9:38 AM EDT Narrative 10/08/2024 10:32 AM EDT ? [facility] ?[address] ?[place] [address] ? [address] Scan Report ? Signed ? Patient: EllenParas Natalie ?MR#: [id number] ?? [id number] ? : 1970 ?Acct:[id number] ? Age/Sex: 54 / M ?ADM Date: 10/08/24 ? Loc: HO.ED ? Attending Dr: ? Ordering Physician: Pau Lazo ?? Date of Service: 10/08/24 ?? Procedure(s): CT abdomen pelvis w IV con ?? Accession Number(s): [id number] ? cc: [facility]; Pau Lazo ? Report Number: ?? [id number]: Total DLP = ??668.00 mGy-cm ?? EXAMINATION: ?? CT ABDOMEN AND PELVIS WITH CONTRAST ? CLINICAL INFORMATION: ?? Left lower quadrant pain. ? COMPARISON: ?? None available. ? TECHNIQUE: ?? Multidetector volumetric images were obtained from the superior aspect ?? of the liver through the pubic symphysis following administration 85 mL ?? of Omnipaque 350 intravenous contrast. Sagittal and coronal reformatted ?? images were obtained on the technologist's workstation. ? Oral contrast: No ? This CT examination was performed using dose optimization techniques as ?? appropriate, variously including the following: ?? *Automated exposure control ?? *Adjustment of mA and/or kV according to patient size (this includes ?? techniques or standardized protocols for targeted exams where dose is ?? matched to indication/reason for exam; i.e. extremities or head) ?? *Use of iterative reconstruction technique ? FINDINGS: ?? LUNG BASES: ?? 5 mm nodule in the anterior right lower lobe, nonspecific (series 7, ?? image 9). ? 5 mm nodule in the lateral right lower lobe (series 7, image 13). ?? 8 mm nodule in the left lower lobe (series 7, image 9). ?? No effusions. Lung bases otherwise clear. ?? Borderline cardiac enlargement. No pericardial effusion. ?? Small type I hiatus hernia suspected.] Minutes ? LIVER, GALLBLADDER, AND BILIARY TREE: ?? Irregular vague oval 2.3 cm nodule in segment 8 (series 2, image 16). ?? Vague hypoattenuating oval nodule segment 8 (series 2, image 26) ?? measuring 2.3 x 1.5 cm. ?? Vague hypoattenuating 1.2 cm nodule segment 7 (series 2, image 25). ?? 9 mm hypoattenuating nodule segment 7, and 10 mm hypoattenuating nodule ?? or inferior segment 7 (series 2, image 36). ?? There are additional small vague hypoattenuating lesions in the liver, ?? which are highly suspect for metastatic lesions. ? PANCREAS: Normal appearance without definite lesion. ? SPLEEN: Unremarkable. ? ADRENAL GLANDS: Unremarkable. ? KIDNEYS AND URETERS: The kidneys are normal in size, shape, and ?? attenuation. No hydronephrosis, hydroureter, or calculi seen. No ?? perinephric stranding. ? BLADDER: Unremarkable. ? GASTROINTESTINAL TRACT: ?? Short segment of extensive wall thickening and irregularity of the ?? sigmoid colon with pericolonic inflammation consistent with acute ?? diverticulitis. There are nodular soft tissue low attenuating elements ?? abutting this inflamed region highly suggestive of metastases or ?? extension of primary malignancy from the colon (series 2, image 74), ?? which is in direct continuity with a loop of terminal ileum (series 5, ?? images 37-45) suspect primary neoplasm in this region. ? Mesenteric metastasis present slightly more cephalad abutting the left ?? medial psoas muscle (series 2, image 66), measuring 3.0 x 2.4 cm axial ?? plane. ? Enlarged portacaval lymph node measuring 2.1 x 2.4 cm (series 2, image ?? 31). ?? There is an enlarged para-aortic lymph node at the same level measuring ?? 1.9 x 1.2 cm (series 2, image 31). ? There is no small bowel obstruction despite apparent tumor involvement ?? of the terminal ileum as seen on coronal series 5, image 38. ?? Normal appendix. ?? The remainder of the colon demonstrates diverticulosis but is otherwise ?? normal in appearance. ? ABDOMINAL WALL: No significant hernia is appreciated. ? LYMPH NODES: As above. ? VASCULAR: Unremarkable. ? PELVIC VISCERA: The prostate and seminal vesicles are unremarkable. ? OSSEOUS STRUCTURES: No suspicious lytic or blastic bone lesions ?? evident. There are spinal degenerative changes. ? CT/CT abdomen pelvis w IV con ?? IMPRESSION: ?? 1. Acute diverticulitis in the left lower quadrant involving a short ?? segment of proximal sigmoid colon, with evidence for an ?? adjacent/contiguous infiltrating hypoattenuating mass lesion with ?? direct involvement of an adjacent loop of terminal ileum, with both ?? mesenteric and sheila metastases present. (See above). ?? 2. There are poorly defined hypoattenuating oval lesions throughout the ?? liver as detailed, highly suspicious for metastatic disease. ?? 3. There are nodules in the lung bases measuring up to 8 mm left lower ?? lobe, also suspicious. ?? 4. There are abnormal aortocaval and para-aortic lymph nodes present, ?? suspicious. ? Findings discussed with Pau Lazo PA-C of the [facility], via phone call at 10:28 AM, 10/08/2024, with findings ?? understood. ? Electronically signed by: ??Nicolas Jones MD ??10/08/2024 10:29 AM EDT RP ? Dictated By: ?Nicolas Jones MD ? Signed By: ?<Electronically signed by Nicolas Jones MD in OV> ?10/08/24 1029 ? DD/ 0938 ? TD/TT: 10/08/24 0954 ? Liability Analyst: ? Procedure Note Donotuseinterpreter, Image - 10/09/[address] [address] [address] Scan Report Signed Patient: Paras Hughes MMR#: [id number] : 1970Acct:[id number] Age/Sex: 54 / MADM Date: 10/08/24 Loc: HO.ED Attending Dr: Ordering Physician: Pau Lazo Date of Service: 10/08/24 Procedure(s): CT abdomen pelvis w IV con Accession Number(s): [id number] cc: [facility]; Pau Lazo Report Number: [id number]: Total DLP = 668.00 mGy-cm EXAMINATION: CT ABDOMEN AND PELVIS WITH CONTRAST CLINICAL INFORMATION: Left lower quadrant pain. COMPARISON: None available. TECHNIQUE: Multidetector volumetric images were obtained from the superior aspect of the liver through the pubic symphysis following administration 85 mL of Omnipaque 350 intravenous contrast. Sagittal and coronal reformatted images were obtained on the technologist's workstation. Oral contrast: No This CT examination was performed using dose optimization techniques as appropriate, variously including the following: *Automated exposure control *Adjustment of mA and/or kV according to patient size (this includes techniques or standardized protocols for targeted exams where dose is matched to indication/reason for exam; i.e. extremities or head) *Use of iterative reconstruction technique FINDINGS: LUNG BASES: 5 mm nodule in the anterior right lower lobe, nonspecific (series 7, image 9). 5 mm nodule in the lateral right lower lobe (series 7, image 13). 8 mm nodule in the left lower lobe (series 7, image 9). No effusions. Lung bases otherwise clear. Borderline cardiac enlargement. No pericardial effusion. Small type I hiatus hernia suspected.] Minutes LIVER, GALLBLADDER, AND BILIARY TREE: Irregular vague oval 2.3 cm nodule in segment 8 (series 2, image 16). Vague hypoattenuating oval nodule segment 8 (series 2, image 26) measuring 2.3 x 1.5 cm. Vague hypoattenuating 1.2 cm nodule segment 7 (series 2, image 25). 9 mm hypoattenuating nodule segment 7, and 10 mm hypoattenuating nodule or inferior segment 7 (series 2, image 36). There are additional small vague hypoattenuating lesions in the liver, which are highly suspect for metastatic lesions. PANCREAS: Normal appearance without definite lesion. SPLEEN: Unremarkable. ADRENAL GLANDS: Unremarkable. KIDNEYS AND URETERS: The kidneys are normal in size, shape, and attenuation. No hydronephrosis, hydroureter, or calculi seen. No perinephric stranding. BLADDER: Unremarkable. GASTROINTESTINAL TRACT: Short segment of extensive wall thickening and irregularity of the sigmoid colon with pericolonic inflammation consistent with acute diverticulitis. There are nodular soft tissue low attenuating elements abutting this inflamed region highly suggestive of metastases or extension of primary malignancy from the colon (series 2, image 74), which is in direct continuity with a loop of terminal ileum (series 5, images 37-45) suspect primary neoplasm in this region. Mesenteric metastasis present slightly more cephalad abutting the left medial psoas muscle (series 2, image 66), measuring 3.0 x 2.4 cm axial plane. Enlarged portacaval lymph node measuring 2.1 x 2.4 cm (series 2, image 31). There is an enlarged para-aortic lymph node at the same level measuring 1.9 x 1.2 cm (series 2, image 31). There is no small bowel obstruction despite apparent tumor involvement of the terminal ileum as seen on coronal series 5, image 38. Normal appendix. The remainder of the colon demonstrates diverticulosis but is otherwise normal in appearance. ABDOMINAL WALL: No significant hernia is appreciated. LYMPH NODES: As above. VASCULAR: Unremarkable. PELVIC VISCERA: The prostate and seminal vesicles are unremarkable. OSSEOUS STRUCTURES: No suspicious lytic or blastic bone lesions evident. There are spinal degenerative changes. CT/CT abdomen pelvis w IV con IMPRESSION: 1. Acute diverticulitis in the left lower quadrant involving a short segment of proximal sigmoid colon, with evidence for an adjacent/contiguous infiltrating hypoattenuating mass lesion with direct involvement of an adjacent loop of terminal ileum, with both mesenteric and sheila metastases present. (See above). 2. There are poorly defined hypoattenuating oval lesions throughout the liver as detailed, highly suspicious for metastatic disease. 3. There are nodules in the lung bases measuring up to 8 mm left lower lobe, also suspicious. 4. There are abnormal aortocaval and para-aortic lymph nodes present, suspicious. Findings discussed with Pau Lazo PA-C of the [facility], via phone call at 10:28 AM, 10/08/2024, with findings understood. Electronically signed by: Nicolas Jones MD 10/08/2024 10:29 AM EDT Dictated By: Nicolas Jones MD Signed By: <Electronically signed by Nicolas Jones MD in OV> 10/08/24 1029 DD/ 0938 TD/TT: 10/08/24 0954 Liability Analyst: [facility] External Provider IMG CT PROCEDURES Edited Result - Final * Slide Review (10/08/2024 8:10 AM EDT) Slide Review VERIFIED [facility] 10/08/2024 8:10 AM EDT 10/08/2024 8:13 AM EDT Generic External Data Provider LAB BLOOD ORDERAB LES Final Result Performing Organization Address [facility] Co de Phone Number [facility] [address] [place] [phone] * (ABNORMAL) Glucose, Whole Blood (10/08/2024 8:10 AM EDT) Glucose, Whole Blood 118(H) 60 - 115 mg/dL [facility] Comment:METER #: [id number] 10/08/2024 8:10 AM EDT 10/08/2024 8:13 AM EDT Generic External Data Provider LAB BLOOD ORDERAB LES Final Result Performing Organization Address [facility] Co de Phone Number [facility] [address] [place] [phone] * SARS-CoV-2 RNA, Influenza A/B, and RSV RNA, Ql NAAT (10/08/2024 8:10 AM EDT) Pathologist [facility] Influenza A PCR NEGATIVE Negative [facility] Influenza B PCR NEGATIVE Negative [facility] Resp Syncy Virus RNA Qual PCR NEGATIVE Negative [facility] SARS COV2 PCR NEGATIVE Negative [facility] Comment:All test results mus t be correlated with clinical findings.Negative results do not preclude SARS-CoV2, influenza Avirus, influenza B virus and/or RSV infectionand should not be used as the sole basis for treatment orother patient management decisions. Negative results must becombined with clinical observations, patient history, andepidemiological information.This test has not been evaluated for monitoring treatment ofinfection.This test has been authorized by the FDA under an EmergencyUse Authorization (EUA) for use by authorized laboratories.Testing performed on the [employer] GeneXpert utilizingreal-time RT-PCR.All SARS CoV2 and positive influenza A/B results arereported to [facility]. 10/08/2024 8:10 AM EDT 10/08/2024 8:13 AM EDT us Generic External Data Provider LAB MICROBIOLOGY - GENERAL ORDERABLES Final Result [facility] [address] [place] [phone] * (ABNORMAL) CBC auto differential (10/08/2024 8:10 AM EDT) [facility] White Blood Count 13.9(H) 4.8 - 10.8 X10*3/uL [facility] Red Blood Count 4.64 4.60 - 5.80 X10*6/uL [facility] Hemoglobin 10.7(L) 14.0 - 18.0 g/dl [facility] Hematocrit 36.3(L) 42.0 - 52.0 % [facility] Mean Corpuscular Volume 78.2(L) 80.0 - 98.0 fL [facility] Mean Corpuscular Hemoglobin 23.1(L) 27.0 - 33.0 pg [facility] Mean Corpuscular HGB Conc 29.5(L) 31.0 - 36.0 g/dl [facility] Red Cell Distribution Width 14.9 11.0 - 16.0 % [facility] Platelet Count 383 160 - 400 X10*3/uL [facility] Mean Platelet Volume 10.0 9.4 - 12.4 fL [facility] Neutrophils Percent Auto 74.6(H) 45 - 73 % [facility] Imm Gran Pct Auto 0.4 0.0 - 0.4 % [facility] Lymphocytes Percent Auto 12.0(L) 20 - 40 % [facility] Monocytes Percent Auto 11.7(H) 2 - 11 % [facility] Eosinophils Percent Auto 0.9 0 - 4 % [facility] Basophils Percent Auto 0.4 0 - 2 % [facility] NRBC Pct Auto 0.0 0.0 - 0.2 /100WBC [facility] Neutrophils Absolute Auto 10.4(H) 2.0 - 8.3 x10*3/uL [facility] Imm Gran Abs Auto 0.05(H) 0.00 - 0.03 X10*3/uL [facility] Lymphocytes Absolute Auto 1.7 1.2 - 4.9 X10*3/uL [facility] Monocytes Absolute Auto 1.6(H) 0.1 - 1.2 X10*3/uL [facility] Eosinophils Absolute Auto 0.1 0.0 - 0.4 X10*3/uL [facility] Basophils Absolute Auto 0.1 0.0 - 0.2 X10*3/uL [facility] NRBC Abs Auto 0.000 0.0 - 0.012 X10*3/uL [facility] 10/08/2024 8:10 AM EDT 10/08/2024 8:13 AM EDT us Generic External Data Provider LAB BLOOD ORDERAB LES Edited Result - Final [facility] [address] [place] [phone] * (ABNORMAL) Sed Rate by Modified Westergren (10/08/2024 8:10 AM EDT) Erythrocyte Sedimentation Rate 91(H) 0 - 15 MM/HR [facility] Comment:Patients with polycy themia and many hemoglobin abnormalitiesmay have depressed sed rates whereas patients with anemiamay have elevated sed rates. 10/08/2024 8:10 AM EDT 10/08/2024 9:28 AM EDT us Generic External Data Provider LAB BLOOD ORDERAB LES Final Result Performing Organization Address [facility] Co de Phone Number [facility] [address] [place] [phone] * (ABNORMAL) C-reactive Protein (10/08/2024 8:10 AM EDT) Pathologist [facility] C Reactive Protein 11.93(H) < or = 0.50 mg/dL [facility] 10/08/2024 8:10 AM EDT 10/08/2024 8:13 AM EDT us Generic External Data Provider LAB BLOOD ORDERAB LES Final Result Performing Organization Address [facility] Co de Phone Number [facility] [address] [place] [phone] * Lipase (10/08/2024 8:10 AM EDT) Lipase 12 8 - 78 U/L [facility] 10/08/2024 8:10 AM EDT 10/08/2024 8:13 AM EDT us Generic External Data Provider LAB BLOOD ORDERAB LES Final Result Performing Organization Address [facility] Co de Phone Number [facility] [address] [place] [phone] * (ABNORMAL) Hepatic Function Panel (10/08/2024 8:10 AM EDT) Bilirubin, Total 0.7 0.0 - 1.0 mg/dL [facility] Bilirubin, Direct 0.3 0.0 - 0.5 mg/dL [facility] Aspartate Amino Transferase 32 5 - 37 U/L [facility] Alanine Aminotransferase 28 0 - 40 U/L [facility] Total Protein 8.1(H) 6.5 - 8.0 g/dL [facility] Albumin Level 4.1 3.5 - 5.0 g/dL [facility] Alkaline Phosphatase 100 39 - 117 U/L [facility] 10/08/2024 8:10 AM EDT 10/08/2024 8:13 AM EDT us Generic External Data Provider LAB BLOOD ORDERAB LES Final Result [facility] [address] [place] [phone] * (ABNORMAL) Basic Metabolic Panel (10/08/2024 8:10 AM EDT) [facility] Sodium 135 135 - 145 mmol/L [facility] Potassium 4.6 3.3 - 5.1 mmol/L [facility] Chloride 102 96 - 108 mmol/L [facility] Carbon Dioxide 24 22 - 29 mmol/L [facility] Anion Gap 14 12 - 20 [facility] Urea Nitrogen (BUN) 13 9 - 16 mg/dL [facility] Creatinine, Serum 0.93 0.5 - 1.4 mg/dL [facility] Creatinine Clr Calc Pharmacy 102.7 [facility] Comment:eGFR (calculated fro m the MDRD study equation) and eCrCl(calculated from the Cockcroft-Gault equation) are based ondifferent parameters and may not yield comparable results.If eCrCl result is absurd, please check patient'sheight/weight. Estimated Glomerular Filt Rate >60 [facility] Comment:Chronic Kidney Disea se: Estimated GFR < 60 mL/min/[id number] Kidney Disease: Estimated GFR < 15 mL/min/1.73m2 Glucose 134(H) 60 - 115 mg/dL [facility] Calcium 9.8 8.4 - 10.2 mg/dL [facility] 10/08/2024 8:10 AM EDT 10/08/2024 8:13 AM EDT us Generic External Data Provider LAB BLOOD ORDERAB LES Final Result [facility] [address] [place] [phone] from Last 3 Months
[2024-10-20] VITALS (24 sets, daily range): BP systolic 107–128; BP diastolic 70–85; PULSE 70–80; RESP 13–22; TEMP 37–37.7; O2SAT 94–99; BMI 28.4
--- NOTE | ~2024-10-20 | CT_ITS ---
EXAMINATION: CT ABDOMEN WITHOUT CONTRAST CLINICAL INFORMATION: Multiple liver lesions. Primary colon cancer. COMPARISON: 10/08/2024 CT abdomen and pelvis. FINDINGS/ CT/CT abdomen wo IV con IMPRESSION: CT guidance was used by Romario Salas during liver biopsy. Initially CT was obtained for liver biopsy however the lesions were not well visualized by CT hence ultrasound guided biopsy was performed. Electronically signed by: Rod Randall MD 10/27/2024 07:17 AM EDT
--- NOTE | ~2024-10-20 | US_ITS ---
Liver lesions PROCEDURES: 1. Limited preprocedure ultrasound of the abdomen. Permanent images saved in PACS. 2. Ultrasound-guided biopsy of the right lobe liver mass. 3. Limited preprocedure ultrasound of the abdomen. Permanent images saved in PACS. CLINICIANS: Romario Salas NP MEDICATIONS: -Versed , Fentanyl , and lidocaine 1% 5 mL SQ -Antibiotics: None -For additional details, please see nursing flowsheet. COMPLICATIONS: None ESTIMATED BLOOD LOSS: < 5 ml CONTRAST: None SPECIMENS: 2 x 20 g cores were sent to pathology MODERATE SEDATION TIME: 45 min PROCEDURE NOTE: The procedure, risks, benefits, and alternatives were carefully explained to the patient and written informed consent was obtained. The patient was placed supine on the exam table. A timeout was performed. A limited ultrasound of the abdomen was performed to localize the right lobe liver lesion and choose appropriate needle entry and trajectory. The patient was prepped and draped in usual sterile fashion. The skin and deeper soft tissues were anesthetized with lidocaine. Under ultrasound guidance, a 19 gague trocar needle was advanced to the liver lesion. A 20 gauge biopsy device was inserted through the trocar needle advanced into the liver lesion. A total of 2, 20 gague cores were performed. The specimens were placed in formalin. A total of 2 Gelfoam torpedoes were then administered through the trocar needle into the biopsy tract and at the level of the liver capsule. The needle was removed. A limited post procedure ultrasound was then performed. Images were saved in PACS. A dry dressing was applied and secured with Tegaderm. There were no immediate complications. The patient was stable after the procedure and was transferred to the post anesthesia care unit. The procedure was done under moderate sedation with a dedicated nurse for monitoring of vital signs. US/US abdomen limited Impression: Ultrasound-guided biopsy of a right lobe liver mass. This procedure was performed by Romario Salas NP and supervised by Roverto Ruiz MD. Electronically signed by: Roverto Ruiz MD 10/20/2024 04:17 PM EDT
[2024-10-20] MEDS: fentaNYL citrate/PF 100 MCG/2 ML VIAL 50 MCG IVPUSH (13:30)
[2024-10-20] MEDS: Midazolam HCl 2 MG/2 ML VIAL 1 MG IVPUSH (13:30)
== END 2024-10-20 17:10 | disposition home or self-care (01) ==
LOC: HO.SSS 11:22
PROVIDERS: Visit Provider Internal Medicine
DX: K74.60 Unspecified cirrhosis of liver (principal); R10.32 Left lower quadrant pain; R53.83 Other fatigue; R59.0 Localized enlarged lymph nodes; K62.5 Hemorrhage of anus and rectum; D50.9 Iron deficiency anemia, unspecified; R91.8 Other nonspecific abnormal finding of lung field; K57.92 Diverticulitis of intestine, part unspecified, without perforation or abscess without bleeding; F50.89 Other specified eating disorder; Z56.0 Unemployment, unspecified; Z79.899 Other long term (current) drug therapy
CPT/HCPCS: 47000; 74150; 76705; 76942; 77012; 88307; 88313; 99152; 99153; J2003; J2250; J2310; J3010

== ENCOUNTER → 2024-10-20 11:30 | Outpatient (BNV) | payer MEDICARE, MEDICAID, SELFPAY | DX: K76.89 Other specified diseases of liver (principal) | CPT/HCPCS: 47000; 76705 ==

== ENCOUNTER 2024-10-29 11:18 | Day surgery (SDC) | payer MEDICARE, MEDICAID, SELFPAY ==
--- OUTSIDE RECORDS SUMMARY | 2024-10-26 14:15 | XMS_ITS | Clinical Summary ---
Author Organization [employer] Address [address] [place] [address] Care Team Providers Care Merchandising Representative Name Role Phone Unavailable Primary Care Provider [...] Vaccines (1 of 2) 2018 COVID-19 Vaccine (2023-2 5 season) 2024 Influenza Vaccine (#1) 2024 [...] (10/08/2024 10:18 AM EDT) OBS1 NEGATIVE NEGATIVE [facility] 10/08/2024 10:1 8 AM EDT 10/08/2024 10:23 AM EDT us Generic External Data Provider LAB BLOOD ORDERAB LES Final Result [facility] [address] [place] [phone] * CT Abdomen Pelvis w/ Contrast (10/08/2024 9:38 AM EDT) Anatomical Region Laterality Modality Body, Pelvis, Abdomen Computed T omography 10/08/2024 9:38 AM EDT Narrative 10/08/2024 10:32 AM EDT ? [facility] ?[address] ?[place] [address] ? CT Scan Report ? Signed ? Patient: EllenParas ?MR#: [id number] ?? [id number] ? : 1970 ?Acct:[id number] ? Age/Sex: 54 / M ?ADM Date: 10/08/24 ? Loc: HO.ED ? Attending Dr: ? Ordering Physician: Pau Lazo ?? Date of Service: 10/08/24 ?? Procedure(s): CT abdomen pelvis w IV con ?? Accession Number(s): [id number] ? cc: [facility]; Pau Lazo ? Report Number: ?? [id number]: Total DLP = ??668.00 mGy-cm ?? EXAMINATION: [...] discussed with Pau Lazo PA-C of the [facility] ?? Department, via phone call at 10:28 AM, 10/08/2024, with findings ?? understood. ? Electronically signed by: ??Nicolas Jones MD ??10/08/2024 10:29 AM EDT RP ? Dictated By: ?Nicolas Jones MD ? Signed By: ?<Electronically signed by Nicolas Jones MD in OV> ?10/08/24 1029 ? DD/ 0938 ? TD/TT: 10/08/24 0954 ? Rouge Sifter And Miller: ? Procedure Note Donotuseinterpreter, Image - 10/09/[address] [address] [address] Scan Report Signed Patient: Paras Hughes MMR#: [id number] : 1970Acct:[id number] Age/Sex: 54 / MADM Date: 10/08/24 Loc: HO.ED Attending Dr: Ordering Physician: Pau Lazo Date of Service: 10/08/24 Procedure(s): CT abdomen pelvis w IV con Accession Number(s): [id number] cc: [facility]; Pau Lazo Report Number: [id number]: Total DLP = 668.00 mGy-cm EXAMINATION: CT [...] discussed with Pau Lazo PA-C of the [facility], via phone call at 10:28 AM, 10/08/2024, with findings understood. Electronically signed by: Nicolas Jones MD 10/08/2024 10:29 AM EDT RP Dictated By: Nicolas Jones MD Signed By: <Electronically signed by Nicolas Jones MD in OV> 10/08/24 1029 DD/ 0938 TD/TT: 10/08/24 0954 Rouge Sifter And Miller: [facility] External Provider IMG CT PROCEDURES Edited Result - Final * Slide Review (10/08/2024 8:10 AM EDT) Slide Review VERIFIED [facility] 10/08/2024 8:10 AM EDT 10/08/2024 8:13 AM EDT Generic External Data Provider LAB BLOOD ORDERAB LES Final Result Performing Organization Address [facility] Co de Phone Number [facility] [address] [place] [phone] * (ABNORMAL) Glucose, Whole Blood (10/08/2024 8:10 AM EDT) Glucose, Whole Blood 118(H) 60 - 115 mg/dL [facility] Comment:METER #: [id number] 10/08/2024 8:10 AM EDT 10/08/2024 8:13 AM EDT Generic External Data Provider LAB BLOOD ORDERAB LES Final Result Performing Organization Address [facility] Co de Phone Number [facility] [address] [place] [phone] * SARS-CoV-2 RNA, Influenza A/B, and RSV RNA, Ql NAAT (10/08/2024 8:10 AM EDT) Pathologist [facility] [place] Influenza A PCR NEGATIVE Negative [facility] Influenza B PCR NEGATIVE Negative [facility] Resp Syncy Virus RNA Qual PCR NEGATIVE Negative [facility] SARS COV2 PCR NEGATIVE Negative [facility] Comment:All test results mus t [...] use by authorized laboratories.Testing performed on the [employer] GeneXpert utilizingreal-time RT-PCR.All SARS CoV2 and positive influenza A/B results arereported to [facility]. 10/08/2024 8:10 AM EDT 10/08/2024 8:13 AM EDT us Generic External Data Provider LAB MICROBIOLOGY - GENERAL ORDERABLES Final Result [facility] [address] [place] [phone] * (ABNORMAL) CBC auto differential (10/08/2024 8:10 AM EDT) [facility] White Blood Count 13.9(H) 4.8 - 10.8 X10*3/uL [facility] Red Blood Count 4.64 4.60 - 5.80 X10*6/uL [facility] Hemoglobin 10.7(L) 14.0 - 18.0 g/dl [facility] Hematocrit 36.3(L) 42.0 - 52.0 % [facility] Mean Corpuscular Volume 78.2(L) 80.0 - 98.0 fL [facility] Mean Corpuscular Hemoglobin 23.1(L) 27.0 - 33.0 pg [facility] Mean Corpuscular HGB Conc 29.5(L) 31.0 - 36.0 g/dl [facility] Red Cell Distribution Width 14.9 11.0 - 16.0 % [facility] Platelet Count 383 160 - 400 X10*3/uL [facility] Mean Platelet Volume 10.0 9.4 - 12.4 fL [facility] Neutrophils Percent Auto 74.6(H) 45 - 73 % [facility] Imm Gran Pct Auto 0.4 0.0 - 0.4 % [facility] Lymphocytes Percent Auto 12.0(L) 20 - 40 % [facility] Monocytes Percent Auto 11.7(H) 2 - 11 % [facility] Eosinophils Percent Auto 0.9 0 - 4 % [facility] Basophils Percent Auto 0.4 0 - 2 % [facility] NRBC Pct Auto 0.0 0.0 - 0.2 /100WBC [facility] Neutrophils Absolute Auto 10.4(H) 2.0 - 8.3 x10*3/uL [facility] Imm Gran Abs Auto 0.05(H) 0.00 - 0.03 X10*3/uL [facility] Lymphocytes Absolute Auto 1.7 1.2 - 4.9 X10*3/uL [facility] Monocytes Absolute Auto 1.6(H) 0.1 - 1.2 X10*3/uL [facility] Eosinophils Absolute Auto 0.1 0.0 - 0.4 X10*3/uL [facility] Basophils Absolute Auto 0.1 0.0 - 0.2 X10*3/uL [facility] NRBC Abs Auto 0.000 0.0 - 0.012 X10*3/uL [facility] 10/08/2024 8:10 AM EDT 10/08/2024 8:13 AM EDT us Generic External Data Provider LAB BLOOD ORDERAB LES Edited Result - Final [facility] [address] [place] [phone] * (ABNORMAL) Sed Rate by Modified Westergren (10/08/2024 8:10 AM EDT) Erythrocyte Sedimentation Rate 91(H) 0 - 15 MM/HR [facility] Comment:Patients with polycy themia and many hemoglobin abnormalitiesmay have depressed sed rates whereas patients with anemiamay have elevated sed rates. 10/08/2024 8:10 AM EDT 10/08/2024 9:28 AM EDT us Generic External Data Provider LAB BLOOD ORDERAB LES Final Result Performing Organization Address [facility] Co de Phone Number [facility] [address] [place] [phone] * (ABNORMAL) C-reactive Protein (10/08/2024 8:10 AM EDT) C Reactive Protein 11.93(H) < or = 0.50 mg/dL [facility] 10/08/2024 8:10 AM EDT 10/08/2024 8:13 AM EDT us Generic External Data Provider LAB BLOOD ORDERAB LES Final Result Performing Organization Address [facility] Co de Phone Number [facility] [address] [place] [place] [phone] * Lipase (10/08/2024 8:10 AM EDT) Lipase 12 8 - 78 U/L [facility] 10/08/2024 8:10 AM EDT 10/08/2024 8:13 AM EDT us Generic External Data Provider LAB BLOOD ORDERAB LES Final Result Performing Organization Address [facility] Co de Phone Number [facility] [address] [place] [place] [phone] * (ABNORMAL) Hepatic Function Panel (10/08/2024 8:10 AM EDT) Pathologist [facility] [place] Bilirubin, Total 0.7 0.0 - 1.0 mg/dL [facility] Bilirubin, Direct 0.3 0.0 - 0.5 mg/dL [facility] Aspartate Amino Transferase 32 5 - 37 U/L [facility] Alanine Aminotransferase 28 0 - 40 U/L [facility] Total Protein 8.1(H) 6.5 - 8.0 g/dL [facility] Albumin Level 4.1 3.5 - 5.0 g/dL [facility] Alkaline Phosphatase 100 39 - 117 U/L [facility] 10/08/2024 8:10 AM EDT 10/08/2024 8:13 AM EDT Generic External Data Provider LAB BLOOD ORDERAB LES Final Result [facility] [address] [place] [phone] * (ABNORMAL) Basic Metabolic Panel (10/08/2024 8:10 AM EDT) [facility] Sodium 135 135 - 145 mmol/L [facility] Potassium 4.6 3.3 - 5.1 mmol/L [facility] Chloride 102 96 - 108 mmol/L [facility] Carbon Dioxide 24 22 - 29 mmol/L [facility] Anion Gap 14 12 - 20 [facility] Urea Nitrogen (BUN) 13 9 - 16 mg/dL [facility] Creatinine, Serum 0.93 0.5 - 1.4 mg/dL [facility] Creatinine Clr Calc Pharmacy 102.7 [facility] Comment:eGFR (calculated fro m the MDRD study equation) and eCrCl(calculated from the Cockcroft-Gault equation) are based ondifferent parameters and may not yield comparable results.If eCrCl result is absurd, please check patient'sheight/weight. Estimated Glomerular Filt Rate >60 [facility] Comment:Chronic Kidney Disea se: Estimated GFR < 60 mL/min/1.19v2Cuvwgu Kidney Disease: Estimated GFR < 15 mL/min/1.73m2 Glucose 134(H) 60 - 115 mg/dL [facility] Calcium 9.8 8.4 - 10.2 mg/dL [facility] 10/08/2024 8:10 AM EDT 10/08/2024 8:13 AM EDT us Generic External Data Provider LAB BLOOD ORDERAB LES Final Result [facility] [address], [place] [phone] from Last 3 Months
[2024-10-29] VITALS (19 sets, daily range): BP systolic 102–133; BP diastolic 61–85; PULSE 68–82; RESP 12–20; TEMP 36.7–37.3; O2SAT 96–100; BMI 27.7
--- NOTE | ~2024-10-29 | US_ITS ---
Liver lesions PROCEDURES: 1. Limited preprocedure ultrasound of the abdomen. Permanent images saved in PACS. 2. CT/Ultrasound-guided biopsy of the right lobe liver mass. MEDICATIONS: -Versed , Fentanyl , and lidocaine 1% SQ -Antibiotics: None -For additional details, please see nursing flowsheet. COMPLICATIONS: None ESTIMATED BLOOD LOSS: < 5 ml CONTRAST: None SPECIMENS: 5 x 18 g cores were sent to pathology MODERATE SEDATION TIME: 45 min PROCEDURE NOTE: The procedure, risks, benefits, and alternatives were carefully explained to the patient and written informed consent was obtained. The patient was placed supine on the exam table. A timeout was performed. A limited ultrasound and cross-sectional CT of the abdomen was performed to localize the right lobe liver lesion and choose appropriate needle entry and trajectory. A site was marked and the patient was prepped and draped in usual sterile fashion. The skin and deeper soft tissues were anesthetized with lidocaine. Under ultrasound/CT guidance, a 17 gague trocar needle was advanced to the liver lesion. A 18 gauge biopsy device was inserted through the trocar needle advanced into the liver lesion. A total of 4, 18-gauge core biopsy specimens were then obtained. The specimens were placed in formalin. The coaxial needle was removed while injecting a Gelfoam slurry. Post biopsy CT images do not demonstrate any evidence of hemorrhage or complication. The patient was stable after the procedure and was transferred to the post anesthesia care unit. The procedure was done under moderate sedation with a dedicated nurse for monitoring of vital signs. US/US abdomen limited Impression: Image-guided biopsy of a right lobe liver mass. Electronically signed by: Roverto Ruiz MD 11/04/2024 04:02 PM EDT
[2024-10-29 12:11] LABS: INTERNATIONAL NORM RATIO 1.2 (0.9-1.1); Prothrombin Time 14.2 SEC (10.9-12.4)
[2024-10-29] MEDS: Midazolam HCl 2 MG/2 ML VIAL 1 MG IVPUSH (13:35)
[2024-10-29] MEDS: fentaNYL citrate/PF 100 MCG/2 ML VIAL 25 MCG IVPUSH ×2 (13:35→14:04)
[2024-10-29] MEDS: Lidocaine HCl 1 % MPF 30 ML VIAL 10 ML SUBCUT (14:29)
== END 2024-10-29 17:03 | disposition home or self-care (01) ==
PROVIDERS: Pathology Anatomic Pathology & Clinical Pathology; Radiology Diagnostic Radiology; Student in an Organized Health Care Education/Training Program; Visit Provider Internal Medicine
DX: C78.7 Secondary malignant neoplasm of liver and intrahepatic bile duct (principal); R10.32 Left lower quadrant pain; R53.83 Other fatigue; R40.0 Somnolence; K57.32 Diverticulitis of large intestine without perforation or abscess without bleeding; K63.89 Other specified diseases of intestine; R91.8 Other nonspecific abnormal finding of lung field; R59.0 Localized enlarged lymph nodes; Z56.0 Unemployment, unspecified; D64.9 Anemia, unspecified
CPT/HCPCS: 36415; 47000; 76705; 77012; 81276; 81403; 85610; 88307; 88313; 88341; 88342; 99152; 99153; J2003; J2250; J3010

== ENCOUNTER → 2024-10-29 13:29 | Outpatient (BNV) | payer MEDICARE, MEDICAID, SELFPAY | PROVIDERS: Visit Provider Student in an Organized Health Care Education/Training Program | DX: D13.4 Benign neoplasm of liver (principal); K76.89 Other specified diseases of liver | CPT/HCPCS: 47000; 76705; 77012 ==

== ENCOUNTER → 2024-11-17 12:22 | Day surgery (SDC) | payer MEDICARE, MEDICAID, SELFPAY ==
--- OUTSIDE RECORDS SUMMARY | 2024-11-06 10:31 | XMS_ITS | Clinical Summary ---
Author Organization [employer] Address [address] [place] [address] Care Team Providers Care Vacuum Conditioner Operator Name Role Phone Unavailable Primary Care Provider [...] FOBT 1970 Lipid Panel 1970 Sigmoidoscopy 1970 Disability Screening 1970 Alcohol/Substance Use Screening 1980 Tobacco Screening [...] patient's age to complete this topic Meningococcal B Vaccine Aged Out No l onger eligible based on patient's age to complete [...] (10/08/2024 10:18 AM EDT) OBS1 NEGATIVE NEGATIVE [facility] 10/08/2024 10:1 8 AM EDT 10/08/2024 10:23 AM EDT us Generic External Data Provider LAB BLOOD ORDERAB LES Final Result [facility] [address] [facility] [place] [phone] * CT Abdomen Pelvis w/ Contrast (10/08/2024 9:38 AM EDT) Anatomical Region Laterality Modality Body, Pelvis, Abdomen Computed T omography 10/08/2024 9:38 AM EDT Narrative 10/08/2024 10:32 AM EDT ? [facility] ?[address] ?[place] [address] ? CT Scan Report ? Signed ? Patient: Paras Hughes ?MR#: [id number] ?? [id number] ? : 1970 ?Acct:[id number] ? Age/Sex: 54 / M ?ADM Date: 10/08/24 ? Loc: HO.ED ? Attending Dr: ? Ordering Physician: Pau Lazo ?? Date of Service: 10/08/24 ?? Procedure(s): CT abdomen pelvis w IV con ?? Accession Number(s): [id number] ? cc: [facility]; Pau Lazo ? Report Number: ?? [id number]: Total DLP = ??668.00 mGy-cm ?? EXAMINATION: [...] discussed with Pau Lazo PA-C of the [facility] ?? Department, via phone call at 10:28 AM, 10/08/2024, with findings ?? understood. ? Electronically signed by: ??Nicolas Jones MD ??10/08/2024 10:29 AM EDT RP ? Dictated By: ?Nicolas Jones MD ? Signed By: ?<Electronically signed by Nicolas Jones MD in OV> ?10/08/24 1029 ? DD/ 0938 ? TD/TT: 10/08/24 0954 ? Painter Hand: ? Procedure Note Donotriointerpreter, Image - 10/09/[address] [address] [address] Scan Report Signed Patient: Paras Hughes [facility]#: [id number] : 1970Acct:[id number] Age/Sex: 54 / MADM Date: 10/08/24 Loc: HO.ED Attending Dr: Ordering Physician: Pau Lazo Date of Service: 10/08/24 Procedure(s): CT abdomen pelvis w IV con Accession Number(s): [id number] cc: [facility]; Pau Lazo Report Number: [id number]: Total DLP = 668.00 mGy-cm EXAMINATION: CT [...] discussed with Pau Lazo PA-C of the [facility], via phone call at 10:28 AM, 10/08/2024, with findings understood. Electronically signed by: Nicolas Jones MD 10/08/2024 10:29 AM EDT Dictated By: Nicolas Jones MD Signed By: <Electronically signed by Nicolas Jones MD in OV> 10/08/24 1029 DD/ 0938 TD/TT: 10/08/24 0954 Painter Hand: [facility] External Provider IMG CT PROCEDURES Edited Result - Final * Slide Review (10/08/2024 8:10 AM EDT) Slide Review VERIFIED [facility] 10/08/2024 8:10 AM EDT 10/08/2024 8:13 AM EDT Generic External Data Provider LAB BLOOD ORDERAB LES Final Result Performing Organization Address [facility] Co de Phone Number [facility] [address] [place] [phone] * (ABNORMAL) Glucose, Whole Blood (10/08/2024 8:10 AM EDT) Glucose, Whole Blood 118(H) 60 - 115 mg/dL [facility] Comment:METER #: [id number] 10/08/2024 8:10 AM EDT 10/08/2024 8:13 AM EDT Generic External Data Provider LAB BLOOD ORDERAB LES Final Result Performing Organization Address City/[facility]/ZIP Co de Phone Number [facility] [address] [place] [phone] * SARS-CoV-2 RNA, Influenza A/B, and RSV RNA, Ql NAAT (10/08/2024 8:10 AM EDT) Pathologist [facility] Influenza A PCR NEGATIVE Negative [facility] Influenza B PCR NEGATIVE Negative [facility] Resp Syncy Virus RNA Qual PCR NEGATIVE Negative [facility] SARS COV2 PCR NEGATIVE Negative [facility] Comment:All test results mus t be [...] use by authorized laboratories.Testing performed on the [employer] GeneXpert utilizingreal-time RT-PCR.All SARS CoV2 and positive influenza A/B results arereported to [facility]. 10/08/2024 8:10 AM EDT 10/08/2024 8:13 AM EDT us Generic External Data Provider LAB MICROBIOLOGY - GENERAL ORDERABLES Final Result [facility] [address] [place] [phone] * (ABNORMAL) CBC auto differential (10/08/2024 8:10 AM EDT) [facility] White Blood Count 13.9(H) 4.8 - 10.8 X10*3/uL [facility] Red Blood Count 4.64 4.60 - 5.80 X10*6/uL [facility] Hemoglobin 10.7(L) 14.0 - 18.0 g/dl [facility] Hematocrit 36.3(L) 42.0 - 52.0 % [facility] Mean Corpuscular Volume 78.2(L) 80.0 - 98.0 fL [facility] Mean Corpuscular Hemoglobin 23.1(L) 27.0 - 33.0 pg [facility] Mean Corpuscular HGB Conc 29.5(L) 31.0 - 36.0 g/dl [facility] Red Cell Distribution Width 14.9 11.0 - 16.0 % [facility] Platelet Count 383 160 - 400 X10*3/uL [facility] Mean Platelet Volume 10.0 9.4 - 12.4 fL [facility] Neutrophils Percent Auto 74.6(H) 45 - 73 % [facility] Imm Gran Pct Auto 0.4 0.0 - 0.4 % [facility] Lymphocytes Percent Auto 12.0(L) 20 - 40 % [facility] Monocytes Percent Auto 11.7(H) 2 - 11 % [facility] Eosinophils Percent Auto 0.9 0 - 4 % [facility] Basophils Percent Auto 0.4 0 - 2 % [facility] NRBC Pct Auto 0.0 0.0 - 0.2 /100WBC [facility] Neutrophils Absolute Auto 10.4(H) 2.0 - 8.3 x10*3/uL [facility] Imm Gran Abs Auto 0.05(H) 0.00 - 0.03 X10*3/uL [facility] Lymphocytes Absolute Auto 1.7 1.2 - 4.9 X10*3/uL [facility] Monocytes Absolute Auto 1.6(H) 0.1 - 1.2 X10*3/uL [facility] Eosinophils Absolute Auto 0.1 0.0 - 0.4 X10*3/uL [facility] Basophils Absolute Auto 0.1 0.0 - 0.2 X10*3/uL [facility] NRBC Abs Auto 0.000 0.0 - 0.012 X10*3/uL [facility] 10/08/2024 8:10 AM EDT 10/08/2024 8:13 AM EDT us Generic External Data Provider LAB BLOOD ORDERAB LES Edited Result - Final Performing Organization Address [facility] de Phone Number [facility] [address] [place] [phone] * (ABNORMAL) Sed Rate by Modified Sonidoren (10/08/2024 8:10 AM EDT) Erythrocyte Sedimentation Rate 91(H) 0 - 15 MM/HR [facility] Comment:Patients with polycy themia and many hemoglobin abnormalitiesmay have depressed sed rates whereas patients with anemiamay have elevated sed rates. 10/08/2024 8:10 AM EDT 10/08/2024 9:28 AM EDT Generic External Data Provider LAB BLOOD ORDERAB LES Final Result Performing Organization Address [facility] Number [facility] [address] [place] [phone] * (ABNORMAL) C-reactive Protein (10/08/2024 8:10 AM EDT) C Reactive Protein 11.93(H) < or = 0.50 mg/dL [facility] 10/08/2024 8:10 AM EDT 10/08/2024 8:13 AM EDT Generic External Data Provider LAB BLOOD ORDERAB LES Final Result Performing Organization Address [facility] Co de Phone Number [facility] [address] [place] [phone] * Lipase (10/08/2024 8:10 AM EDT) Lipase 12 8 - 78 U/L [facility] 10/08/2024 8:10 AM EDT 10/08/2024 8:13 AM EDT Generic External Data Provider LAB BLOOD ORDERAB LES Final Result [facility] [address] [place] [phone] * (ABNORMAL) Hepatic Function Panel (10/08/2024 8:10 AM EDT) Pathologist [facility] Bilirubin, Total 0.7 0.0 - 1.0 mg/dL [facility] Bilirubin, Direct 0.3 0.0 - 0.5 mg/dL [facility] Aspartate Amino Transferase 32 5 - 37 U/L [facility] Alanine Aminotransferase 28 0 - 40 U/L [facility] Total Protein 8.1(H) 6.5 - 8.0 g/dL [facility] Albumin Level 4.1 3.5 - 5.0 g/dL [facility] Alkaline Phosphatase 100 39 - 117 U/L [facility] 10/08/2024 8:10 AM EDT 10/08/2024 8:13 AM EDT us Generic External Data Provider LAB BLOOD ORDERAB LES Final Result Performing Organization Address [facility] Co de Phone Number [facility] [address] [place] [phone] * (ABNORMAL) Basic Metabolic Panel (10/08/2024 8:10 AM EDT) [facility] Sodium 135 135 - 145 mmol/L [facility] Potassium 4.6 3.3 - 5.1 mmol/L [facility] Chloride 102 96 - 108 mmol/L [facility] Carbon Dioxide 24 22 - 29 mmol/L [facility] Anion Gap 14 12 - 20 [facility] Urea Nitrogen (BUN) 13 9 - 16 mg/dL [facility] Creatinine, Serum 0.93 0.5 - 1.4 mg/dL [facility] Creatinine Clr Calc Pharmacy 102.7 [facility] Comment:eGFR (calculated fro m the MDRD study equation) and eCrCl(calculated from the Cockcroft-Gault equation) are based ondifferent parameters and may not yield comparable results.If eCrCl result is absurd, please check patient'sheight/weight. Estimated Glomerular Filt Rate >60 [facility] Comment:Chronic Kidney Disea se: Estimated GFR < 60 mL/min/1.33t1Bthstj Kidney Disease: Estimated GFR < 15 mL/min/1.73m2 Glucose 134(H) 60 - 115 mg/dL [facility] Calcium 9.8 8.4 - 10.2 mg/dL [facility] 10/08/2024 8:10 AM EDT 10/08/2024 8:13 AM EDT us Generic External Data Provider LAB BLOOD ORDERAB LES Final Result [facility] [address] [place] [phone] from Last 3 Months
[2024-11-17] VITALS (13 sets, daily range): BP systolic 99–121; BP diastolic 61–83; PULSE 76–158; RESP 11–20; TEMP 36.8–37.2; O2SAT 95–100; BMI 27.3
--- NOTE | ~2024-11-17 | IR_ITS ---
CLINICAL HISTORY: Colorectal cancer. The patient presents to interventional radiology for placement of a port for chemotherapy. PROCEDURES: 1. Real-time ultrasound-guided access into the right internal jugular vein after documentation of selected vessel patency, and permanent image storing in the patient records. 2. Placement of a 6.6 [place] single-lumen port. CLINICIAN: Romario Salas NP MEDICATIONS: - Versed , Fentanyl , Lidocaine 1% SQ -Antibiotics: Ancef 2g -For additional details, please see nursing flowsheet. Complications: None. Estimated blood loss: <5 ml Specimens: None. Contrast: None. Fluoroscopy time: 0.3 min MODERATE SEDATION TIME: 45 min PROCEDURE NOTE: The procedure, risks, benefits, and alternatives were carefully explained to the patient and written informed consent was obtained. The patient was placed supine on the fluoroscopy table. A timeout was performed. The right neck and chest was prepped and draped in usual sterile fashion. Maximum barrier technique was utilized. Local anesthesia was administered to the access site with 1% lidocaine. It was around this time that the patient was found to be in a new onset atrial fibrillation from the ECG monitoring. The patient was asymptomatic and stable. We were okay with moving forward. Under ultrasound guidance, the right internal jugular vein was accessed with a 5 fr micropuncture set. A 0.035 in wire was advanced into the IVC. A peel-away sheath was advanced over the wire and into the SVC, and the wire was removed. Next, subcutaneous lidocaine was administered to the chest. The port pocket was created after the skin incision, utilizing blunt dissection. Using blunt dissection, a subcutaneous tunnel was created that connects from the port pocket to the venotomy site. Through the peel-away sheath, the 6.6 Nauruan port catheter was placed. The catheter position was verified with fluoroscopy to be at the superior vena cava/right atrial junction. The port was connected to the catheter and was placed in the pocket. The port incision site was closed with interrupted 3-0 Vicryl subcutaneous sutures and surgical glue. Prior to closing the skin, 1 g of Ancef solution was placed in the pocket. The port was tested, flushed, and packed with heparin per routine protocol. The patient tolerated the procedure well. The patient was stable after the procedure and was transferred to the PACU. The procedure was performed under moderate sedation and with a dedicated nurse with continuous monitoring of vital signs. A permanent image of the ultrasound the neck and fluoroscopic image of the chest was saved and sent to PACS. FINDINGS: 1. Patent right internal jugular vein 2. Placement of a 6.6 [place]uan single lumen port. 3. Port flushes and aspirates very well with a 10 mL syringe. No pneumothorax. 4. New onset atrial fibrillation, stable and a symptomatically. IR/IR cvc insert tunnel w prt/disposal operator IMPRESSION: Placement of a 6.6 Nauruan single-lumen port. PLAN: - The patient will be transferred to the emergency department for further workup regarding new onset atrial fibrillation. - Port may be used immediately. This procedure was performed by Romario Salas NP and directly supervised by Roverto Ruiz MD. Electronically signed by: Roverto Ruiz MD 11/24/2024 02:46 PM EDT
[2024-11-17] MEDS: ceFAZolin Sodium/Dextrose,Iso 2 GM/50 ML PIGGYBACK IV (14:25)
[2024-11-17] MEDS: Midazolam HCl 2 MG/2 ML VIAL 1 MG IVPUSH (14:57)
[2024-11-17] MEDS: fentaNYL citrate/PF 100 MCG/2 ML VIAL 50 MCG IVPUSH (14:58)
[2024-11-17] MEDS: Midazolam HCl 2 MG/2 ML VIAL 0.5 MG IVPUSH (15:10)
[2024-11-17] MEDS: fentaNYL citrate/PF 100 MCG/2 ML VIAL 25 MCG IVPUSH (15:11)
--- NOTE | 2024-11-17 15:57 | ECG_ITS ---
Test Reason : Abnormal EKG Blood Pressure : */* mmHG Vent. Rate : 133 BPM Atrial Rate : * BPM P-R Int : * ms QRS Dur : 72 ms QT Int : 264 ms P-R-T Axes : * 12 24 degrees QTcB Int : 392 ms Atrial fibrillation with rapid ventricular response Abnormal ECG No previous ECGs available Referred By: Romario Salas Electronically Signed By: ADRY WHITNEY
== END ==
LOC: HO.SSS 12:23
PROVIDERS: Visit Provider Internal Medicine
DX: C18.9 Malignant neoplasm of colon, unspecified (principal); Z45.2 Encounter for adjustment and management of vascular access device; I48.91 Unspecified atrial fibrillation
CPT/HCPCS: 36561; 76937; 93005; 99152; 99153; J0690; J1642; J1644; J2003; J2250; J3010

== ENCOUNTER 2024-11-17 16:30 | Inpatient (IN) | payer MEDICARE, MEDICAID, SELFPAY ==
[2024-11-17] VITALS (7 sets, daily range): BP systolic 102–124; BP diastolic 66–80; PULSE 109–148; RESP 16–18; TEMP 36.9–37.1; O2SAT 95–99; BMI 27.3
--- NOTE | ~2024-11-17 | CT_ITS ---
CLINICAL HISTORY: sob CT angiography chest with contrast. 3D Postprocessing. Comparison: None Findings: The heart is normal size. RV/LV ratio is normal. Unremarkable thoracic aorta and great vessels. No aneurysm. No acute pulmonary embolus. The visualized thyroid and mediastinum are unremarkable. No consolidation or effusion. Multiple soft tissue nodule within both lungs. ( right upper lobe 5 mm nodule on image 33, right middle lobe 7 mm nodule on image 67, right lower lobe 5 mm nodule in image 88, right lower lobe 7 mm nodule on image 92, left upper lobe 7 mm nodule on image 51, lingular 5 mm nodule on image 63, left lower lobe nodule measuring 7 mm on image 62 series 8 ) The upper abdomen is unremarkable. No acute fractures. IMPRESSION: 1. No pulmonary emboli. No acute aortic syndrome. 2. Multiple 5-7 mm lung nodules are noted bilaterally. Differentials include pulmonary lung nodules versus metastatic disease. Correlate clinically. Correlation with prior outside studies or three-month follow-up chest CT can be obtained for further evaluation. This document has been electronically signed by: Norris Rogers MD on 11/17/2024 20:12:56
--- NOTE | 2024-11-17 16:35 | ECG_ITS ---
Test Reason : AFIB Blood Pressure : */* mmHG Vent. Rate : 141 BPM Atrial Rate : * BPM P-R Int : * ms QRS Dur : 76 ms QT Int : 306 ms P-R-T Axes : * 17 10 degrees QTcB Int : 468 ms Atrial fibrillation with rapid ventricular response Abnormal ECG When compared with ECG of 17-Nov-2024 15:59, No significant change was found Referred By: Generic ED Physician Electronically Signed By: ADRY WHITNEY
[2024-11-17 17:02] LABS: MANUAL DIFF FLAG NO
[2024-11-17 17:09] LABS: Basophils Absolute Auto 0.1 X10*3/uL (0.0-0.2); Basophils Percent Auto 0.6 % (0-2); Eosinophils Absolute Auto 0.3 X10*3/uL (0.0-0.4); Eosinophils Percent Auto 2.9 % (0-4); Hematocrit 35.5 % (42.0-52.0); Hemoglobin 10.7 g/dl (14.0-18.0); Imm Gran Abs Auto 0.02 X10*3/uL (0.00-0.03); Imm Gran Pct Auto 0.2 % (0.0-0.4); Lymphocytes Absolute Auto 1.6 X10*3/uL (1.2-4.9); Mean Corpuscular HGB Conc 30.1 g/dl (31.0-36.0); Mean Corpuscular Hemoglobin 23.2 pg (27.0-33.0); Mean Corpuscular Volume 76.8 fL (80.0-98.0); Mean Platelet Volume 9.9 fL (9.4-12.4); Monocytes Percent Auto 11.6 % (2-11); Neutrophils Absolute Auto 5.6 x10*3/uL (2.0-8.3); Neutrophils Percent Auto 65.7 % (45-73); Platelet Count 358 X10*3/uL (160-400); Red Blood Count 4.62 X10*6/uL (4.60-5.80); Red Cell Distribution Width 16.3 % (11.0-16.0); White Blood Count 8.6 X10*3/uL (4.8-10.8)
--- OUTSIDE RECORDS SUMMARY | 2024-11-17 17:18 | XMS_ITS | Clinical Summary ---
Author Organization [employer] Address [address] [facility] [address] [place] [address] Care Team Providers Care Chemistry Faculty Member Name Role Phone Unavailable Primary Care Provider [...] Vaccine (2023-2 5 season) 2024 Influenza Vaccine (Season Ended) 2025 RSV Patients and Pa tients Aged 60 [...] (10/08/2024 10:18 AM EDT) OBS1 NEGATIVE NEGATIVE [facility] 10/08/2024 10:1 8 AM EDT 10/08/2024 10:23 AM EDT us Generic External Data Provider LAB BLOOD ORDERAB LES Final Result [facility] [address] [place] [phone] * CT Abdomen Pelvis w/ Contrast (10/08/2024 9:38 AM EDT) Anatomical Region Laterality Modality Body, Pelvis, Abdomen Computed T omography 10/08/2024 9:38 AM EDT Narrative 10/08/2024 10:32 AM EDT ? [facility] ?[address] ?[place] [address] ? CT Scan Report ? Signed ? Patient: Paras Hughes ?MR#: [id number] ?? [id number] ? : 1970 ?Acct:[id number] ? Age/Sex: 54 / M ?ADM Date: 10/08/24 ? Loc: HO.ED ? Attending Dr: ? Ordering Physician: Pau Lazo ?? Date of Service: 10/08/24 ?? Procedure(s): CT abdomen pelvis w IV con ?? Accession Number(s): [id number] ? cc: [facility]; Pau Lazo ? Report Number: ?? [id number]: Total DLP = ??668.00 mGy-cm ?? EXAMINATION: [...] discussed with Pau Lazo PA-C of the [facility] ?? Department, via phone call at 10:28 AM, 10/08/2024, with findings ?? understood. ? Electronically signed by: ??Nicolas Jones MD ??10/08/2024 10:29 AM EDT RP ? Dictated By: ?Nicolas Jones MD ? Signed By: ?<Electronically signed by Nicolas Jones MD in OV> ?10/08/24 1029 ? DD/ 0938 ? TD/TT: 10/08/24 0954 ? Information Technology Instructor: ? Procedure Note Donotriointerpreter, Image - 10/09/[address] [address] [address] Scan Report Signed Patient: Paras Hughes [facility]#: [id number] : 1970Acct:[id number] Age/Sex: 54 / MADM Date: 10/08/24 Loc: HO.ED Attending Dr: Ordering Physician: Pau Lazo Date of Service: 10/08/24 Procedure(s): CT abdomen pelvis w IV con Accession Number(s): [id number] cc: [facility]; Pau Lazo Report Number: [id number]: Total DLP = 668.00 mGy-cm EXAMINATION: CT [...] discussed with Pau Lazo PA-C of the [facility], via phone call at 10:28 AM, 10/08/2024, with findings understood. Electronically signed by: Nicolas Jones MD 10/08/2024 10:29 AM EDT Dictated By: Nicolas Jones MD Signed By: <Electronically signed by Nicolas Jones MD in OV> 10/08/24 1029 DD/ 0938 TD/TT: 10/08/24 0954 Information Technology Instructor: [facility] External Provider IMG CT PROCEDURES Edited Result - Final * Slide Review (10/08/2024 8:10 AM EDT) Slide Review VERIFIED [facility] 10/08/2024 8:10 AM EDT 10/08/2024 8:13 AM EDT Generic External Data Provider LAB BLOOD ORDERAB LES Final Result Performing Organization Address [facility] Co de Phone Number [facility] [address] [place] [phone] * (ABNORMAL) Glucose, Whole Blood (10/08/2024 8:10 AM EDT) Glucose, Whole Blood 118(H) 60 - 115 mg/dL [facility] Comment:METER #: [id number] 10/08/2024 8:10 AM EDT 10/08/2024 8:13 AM EDT Generic External Data Provider LAB BLOOD ORDERAB LES Final Result Performing Organization Address City/[facility]/ZIP Co de Phone Number [facility] [address] [place] [phone] * SARS-CoV-2 RNA, Influenza A/B, and RSV RNA, Ql NAAT (10/08/2024 8:10 AM EDT) Pathologist [facility] Influenza A PCR NEGATIVE Negative [facility] Influenza B PCR NEGATIVE Negative [facility] Resp Syncy Virus RNA Qual PCR NEGATIVE Negative [facility] SARS COV2 PCR NEGATIVE Negative [facility] Comment:All test results mus t [...] use by authorized laboratories.Testing performed on the [email or web address] GeneXpert utilizingreal-time RT-PCR.All SARS CoV2 and positive influenza A/B results arereported to [facility]. 10/08/2024 8:10 AM EDT 10/08/2024 8:13 AM EDT us Generic External Data Provider LAB MICROBIOLOGY - GENERAL ORDERABLES Final Result [facility] [address] [place] [phone] * (ABNORMAL) CBC auto differential (10/08/2024 8:10 AM EDT) [facility] White Blood Count 13.9(H) 4.8 - 10.8 X10*3/uL [facility] Red Blood Count 4.64 4.60 - 5.80 X10*6/uL [facility] Hemoglobin 10.7(L) 14.0 - 18.0 g/dl [facility] Hematocrit 36.3(L) 42.0 - 52.0 % [facility] Mean Corpuscular Volume 78.2(L) 80.0 - 98.0 fL [facility] Mean Corpuscular Hemoglobin 23.1(L) 27.0 - 33.0 pg [facility] Mean Corpuscular HGB Conc 29.5(L) 31.0 - 36.0 g/dl [facility] Red Cell Distribution Width 14.9 11.0 - 16.0 % [facility] Platelet Count 383 160 - 400 X10*3/uL [facility] Mean Platelet Volume 10.0 9.4 - 12.4 fL [facility] Neutrophils Percent Auto 74.6(H) 45 - 73 % [facility] Imm Gran Pct Auto 0.4 0.0 - 0.4 % [facility] Lymphocytes Percent Auto 12.0(L) 20 - 40 % [facility] Monocytes Percent Auto 11.7(H) 2 - 11 % [facility] Eosinophils Percent Auto 0.9 0 - 4 % [facility] Basophils Percent Auto 0.4 0 - 2 % [facility] NRBC Pct Auto 0.0 0.0 - 0.2 /100WBC [facility] Neutrophils Absolute Auto 10.4(H) 2.0 - 8.3 x10*3/uL [facility] Imm Gran Abs Auto 0.05(H) 0.00 - 0.03 X10*3/uL [facility] Lymphocytes Absolute Auto 1.7 1.2 - 4.9 X10*3/uL [facility] Monocytes Absolute Auto 1.6(H) 0.1 - 1.2 X10*3/uL [facility] Eosinophils Absolute Auto 0.1 0.0 - 0.4 X10*3/uL [facility] Basophils Absolute Auto 0.1 0.0 - 0.2 X10*3/uL [facility] NRBC Abs Auto 0.000 0.0 - 0.012 X10*3/uL [facility] 10/08/2024 8:10 AM EDT 10/08/2024 8:13 AM EDT us Generic External Data Provider LAB BLOOD ORDERAB LES Edited Result - Final Performing Organization Address [facility] de Phone Number [facility] [address] [place] [phone] * (ABNORMAL) Sed Rate by Modified Sonidoren (10/08/2024 8:10 AM EDT) Erythrocyte Sedimentation Rate 91(H) 0 - 15 MM/HR [facility] Comment:Patients with polycy themia and many hemoglobin abnormalitiesmay have depressed sed rates whereas patients with anemiamay have elevated sed rates. 10/08/2024 8:10 AM EDT 10/08/2024 9:28 AM EDT Generic External Data Provider LAB BLOOD ORDERAB LES Final Result Performing Organization Address [facility] Number [facility] [address] [place] [phone] * (ABNORMAL) C-reactive Protein (10/08/2024 8:10 AM EDT) C Reactive Protein 11.93(H) < or = 0.50 mg/dL [facility] 10/08/2024 8:10 AM EDT 10/08/2024 8:13 AM EDT Generic External Data Provider LAB BLOOD ORDERAB LES Final Result Performing Organization Address [facility] Co de Phone Number [facility] [address] [place] [phone] * Lipase (10/08/2024 8:10 AM EDT) Lipase 12 8 - 78 U/L [facility] 10/08/2024 8:10 AM EDT 10/08/2024 8:13 AM EDT Generic External Data Provider LAB BLOOD ORDERAB LES Final Result [facility] [address] [place] [phone] * (ABNORMAL) Hepatic Function Panel (10/08/2024 8:10 AM EDT) Pathologist [facility] Bilirubin, Total 0.7 0.0 - 1.0 mg/dL [facility] Bilirubin, Direct 0.3 0.0 - 0.5 mg/dL [facility] Aspartate Amino Transferase 32 5 - 37 U/L [facility] Alanine Aminotransferase 28 0 - 40 U/L [facility] Total Protein 8.1(H) 6.5 - 8.0 g/dL [facility] Albumin Level 4.1 3.5 - 5.0 g/dL [facility] Alkaline Phosphatase 100 39 - 117 U/L [facility] 10/08/2024 8:10 AM EDT 10/08/2024 8:13 AM EDT us Generic External Data Provider LAB BLOOD ORDERAB LES Final Result Performing Organization Address [facility] Co de Phone Number [facility] [address] [place] [phone] * (ABNORMAL) Basic Metabolic Panel (10/08/2024 8:10 AM EDT) [facility] Sodium 135 135 - 145 mmol/L [facility] Potassium 4.6 3.3 - 5.1 mmol/L [facility] Chloride 102 96 - 108 mmol/L [facility] Carbon Dioxide 24 22 - 29 mmol/L [facility] Anion Gap 14 12 - 20 [facility] Urea Nitrogen (BUN) 13 9 - 16 mg/dL [facility] Creatinine, Serum 0.93 0.5 - 1.4 mg/dL [facility] Creatinine Clr Calc Pharmacy 102.7 [facility] Comment:eGFR (calculated fro m the MDRD study equation) and eCrCl(calculated from the Cockcroft-Gault equation) are based ondifferent parameters and may not yield comparable results.If eCrCl result is absurd, please check patient'sheight/weight. Estimated Glomerular Filt Rate >60 [facility] Comment:Chronic Kidney Disea se: Estimated GFR < 60 mL/min/[id number] Kidney Disease: Estimated GFR < 15 mL/min/1.73m2 Glucose 134(H) 60 - 115 mg/dL [facility] Calcium 9.8 8.4 - 10.2 mg/dL [facility] 10/08/2024 8:10 AM EDT 10/08/2024 8:13 AM EDT us Generic External Data Provider LAB BLOOD ORDERAB LES Final Result [facility] [address] [place] [phone] [phone] from Last 3 Months
[2024-11-17 17:23] LABS: Alanine Aminotransferase 25 U/L (0-40); Albumin Level 3.9 g/dL (3.5-5.0); Alkaline Phosphatase 93 U/L (39-117); Anion Gap 15 (12-20); Aspartate Amino Transferase 44 U/L (5-37); Bilirubin Total 0.3 mg/dL (0.0-1.0); Blood Urea Nitrogen 14 mg/dL (9-16); Calcium 9.5 mg/dL (8.4-10.2); Carbon Dioxide 23 mmol/L (22-29); Chloride 107 mmol/L (96-108); Creatinine Clr Calc Pharmacy 97.8; Estimated Glomerular Filt Rate > 60; Glucose Random 102 mg/dL (60-115); Magnesium 2.4 mg/dL (1.6-2.6); Potassium 4.4 mmol/L (3.3-5.1); Sodium 141 mmol/L (135-145)
[2024-11-17 17:27] LABS: Troponin-I High Sensitivity 7.4 ng/L (<3.5-35.0)
--- NOTE | 2024-11-17 17:32 | ED.GENADULT ---
HPI - General Adult General Chief complaint: Recheck/Abnormal Lab/Rx Stated complaint: AFIB Time Seen by Provider: 11/17/24 17:17 History of Present Illness HPI narrative: Patient is a 54-year-old male with a history of colon cancer. Presented today after getting his Port-A-Cath inserted was noted to be in atrial fibrillation increased sent to the ED for further evaluation patient denies any fever chills no chest pain or shortness of breath. Has known colon cancer with Mets. Patient is from home. No fever no chills. No diaphoresis. Related Data Home Medications ?Medication ?Instructions ?Recorded ?Confirmed multivitamin 1 tab PO DAILY 10/08/24 11/17/24 Previous Rx's ?Medication ?Instructions ?Recorded acetaminophen 500 mg tablet 500 mg PO Q6H PRN Pain #30 tabs 10/28/24 Allergies Allergy/AdvReac Type Severity Reaction Status Date / Time No Known Allergies Allergy Verified 11/17/24 16:42 PMFSH Past Medical History Medical History (Updated 11/17/24 @ 20:39 by Gail Kenney MD) Anemia No pertinent past medical history Surgical History (Updated 11/05/24 @ 10:31 by Pam Granda MD) History of liver biopsy Hx of right knee surgery (~2010) Family History Family History Maternal Grandmother Heart attack Social History Social History Household Members: None Housing: Apartment Are you a primary pharmacy customer care specialist to a significant other at home: No Do you presently have visiting nurse or other home services: No Patient Tobacco Use Status: Never used Tobacco Smoked in Last 30 Days: No Use of substances other than those prescribed or required for medical reasons: No Advance Directives: No Advance Directives Information Provided: No service: No Current occupational status: unemployed Current occupation: Right hand dominate Physical Exam ED Vital Signs: Vital Signs - 24 hr 11/17/24 16:41 11/17/24 16:46 11/17/24 17:34 Temperature 98.5 F Pulse Rate 140 H 148 H 136 H Respiratory Rate 18 16 Blood Pressure 124/80 118/67 Pulse Oximetry 99 97 Oxygen Delivery Method Room Air Room Air 11/17/24 17:35 11/17/24 17:40 11/17/24 18:37 Temperature Pulse Rate 145 H 133 H 115 H Respiratory Rate 16 18 18 Blood Pressure 118/67 109/67 102/66 Pulse Oximetry 98 95 95 Oxygen Delivery Method Room Air Room Air Room Air BMI result Body Mass Index 27.3 Medications Administered Discontinued Medications Generic Name Dose Route Start Last Admin Trade Name Freq PRN Reason Stop Dose Admin Diltiazem HCl 25 mg 11/17/24 17:26 11/17/24 17:34 Diltiazem Hcl 50 Mg/10 Ml Vial IVPUSH 11/17/24 17:27 25 mg STAT STA Administration Sodium Chloride 1,000 mls @ 999 mls/hr 11/17/24 19:30 11/17/24 19:53 Ns IV 11/17/24 20:30 999 mls/hr .Q1H1M GEORGINA Administration Iohexol 100 ml 11/17/24 19:29 11/17/24 19:29 Iohexol 350 Mg/Ml 100 Ml Infus..Btl IV 11/17/24 19:30 65 ml ONCE ONE Administration Medical Decision Making Medical Decision Making MDM Narrative: patient is 54 years old with a history of colon cancer was getting a Port-A-Cath put in when after the procedure patient was noted to have irregular heartbeat. Heart rate up to 150. My interpretation patient's EKG shows an atrial fibrillation pattern heart rate is 140 QRS is tight there is no acute ST segment elevation patient's white count is normal. Patient's electrolytes showed a fairly normal TSH is no evidence for hypo or hyperthyroid patient's kidney function is normal. Alcohol is less than 10 patient claims he does not drink alcohol at all. CTA of the chest was done to rule out the possibility of PE. Patient was not hypoxic. Given a dose of metoprolol. Heart rate is down to approximately 110. Blood pressure 102/66. Will require admission for further monitoring. Currently in stable condition patient's CTA of the chest showed no acute evidence of PE. Heart rate is still approximately 110 a small bolus of fluid was given patient to be admitted for further evaluation and monitoring for new onset atrial fibrillation. Differential Diagnosis Differential Diagnoses: The differential diagnosis associated with the presentation includes atrial fibrillation, PE, pneumonia, ACS, hypothyroid Admission/Observation Consideration of admission/observation: Escalation of care including admission/observation considered Consult Healthcare Provider Management of the patient was discussed with: Hospitalist Lab Data MDM Lab Attestation statement: I reviewed the patient's lab results. 11/17/24 16:56 11/17/24 16:56 Labs: Lab Results 11/17/24 11/17/24 Range/Units 16:55 16:56 WBC 8.6 (4.8-10.8) X10*3/uL RBC 4.62 (4.60-5.80) X10*6/uL Hgb 10.7 L (14.0-18.0) g/dl Hct 35.5 L (42.0-52.0) % MCV 76.8 L (80.0-98.0) fL MCH 23.2 L (27.0-33.0) pg MCHC 30.1 L (31.0-36.0) g/dl RDW 16.3 H (11.0-16.0) % Plt Count 358 (160-400) X10*3/uL MPV 9.9 (9.4-12.4) fL Immature Gran % (Auto) 0.2 (0.0-0.4) % Neut % (Auto) 65.7 (45-73) % Lymph % (Auto) 19.0 L (20-40) % Falls % (Auto) 11.6 H (2-11) % Eos % (Auto) 2.9 (0-4) % Baso % (Auto) 0.6 (0-2) % Lymph # (Auto) 1.6 (1.2-4.9) X10*3/uL Falls # (Auto) 1.0 (0.1-1.2) X10*3/uL Eos # (Auto) 0.3 (0.0-0.4) X10*3/uL Baso # (Auto) 0.1 (0.0-0.2) X10*3/uL Abs Immat Gran (auto) 0.02 (0.00-0.03) X10*3/uL Absolute Neuts (auto) 5.6 (2.0-8.3) x10*3/uL Absolute Nucleated RBC 0.000 (0.0-0.012) X10*3/uL Nucleated RBC % (auto) 0.0 (0.0-0.2) /100WBC Hold Purple Top SEE NOTE Sodium 141 (135-145) mmol/L Potassium 4.4 (3.3-5.1) mmol/L Chloride 107 (96-108) mmol/L Carbon Dioxide 23 (22-29) mmol/L Anion Gap 15 (12-20) BUN 14 (9-16) mg/dL Creatinine 0.87 (0.5-1.4) mg/dL Estim Creat Clear Calc 97.8 Estimated GFR > 60 Random Glucose 102 (60-115) mg/dL Calcium 9.5 (8.4-10.2) mg/dL Magnesium 2.4 (1.6-2.6) mg/dL Total Bilirubin 0.3 (0.0-1.0) mg/dL AST 44 H (5-37) U/L ALT 25 (0-40) U/L Alkaline Phosphatase 93 (39-117) U/L Troponin I High Sens 7.4 (<3.5-35.0) ng/L Total Protein 8.0 (6.5-8.0) g/dL Albumin 3.9 (3.5-5.0) g/dL TSH 4.67 H (0.32-4.0) uIU/mL Ethyl Alcohol < 10 mg/dL Independent Interpretation I performed an independent interpretation of an: EKG ( she will fibrillation heart rates 140) and CT Scan ( CTA of the chest grossly negative for PE no pneumonia no pneumothorax) Radiology Impression Discussion of test interpretation with radiology: I have reviewed the radiologist's reading. External Record Review External record reviewed: Inpatient record Chronic Conditions Patient?s care impacted by: Cancer history of colon cancer with metastasis Social Determinants Patient?s care significantly limited by Social Determinants of Health including: Problems related to primary support group Critical Care Time Critical Care Time Critical Care Time: Yes Total Critical Care Time: 40 Attestation: I have personally provided 40 minutes of critical care time exclusive of time spent on separately billable procedures. Time includes review of lab data, radiology results, discussion with consultants, and monitoring for potential decompensation. Interventions were performed as documented above Discharge Plan Discharge Clinical Impression: Atrial fibrillation Patient Disposition: Admitted As Inpatient Prescriptions: No Action multivitamin Tablet 1 tab PO DAILY acetaminophen 500 mg Tablet 500 mg PO Q6H PRN (Reason: Pain) Qty: 30 0RF Print Language: Croatian
[2024-11-17] MEDS: dilTIAZem HCL 50 MG/10 ML VIAL 25 MG IVPUSH (17:34)
[2024-11-17 18:20] LABS: Ethanol < 10 mg/dL
[2024-11-17 18:28] LABS: Thyroid Stimulating Hormone 4.67 uIU/mL (0.32-4.0)
[2024-11-17] MEDS: iohexoL 350 MG/ML 100 ML INFUS..BTL IV (19:29)
[2024-11-17] MEDS: 0.9 % Sodium Chloride 1,000 ML 999 ML IV (19:53)
--- NOTE | 2024-11-17 20:44 | PM.IMHP ---
History of Present Illness Date of Service: 11/17/24 Chief Complaint: Tachycardia 54-year-old male with a past medical history of colon cancer presented to the hospital with a chief complaint of tachycardia. Patient was having Port-A-Cath placement, during the procedure patient was noted to have heart rate in 150s; subsequently sent to the hospital for further evaluation. Patient denied any chest pain or palpitations. Denies any shortness of breath dyspnea on exertion. Denies any GI or symptoms. Review of all other systems is negative except mentioned above ER course: Per ER team the patient to be in new onset AFib with rapid ventricular response; heart rate gradually improved; given IV fluids; CT chest showed no evidence of PE. [facility] Medical History (Updated 11/17/24 @ 20:46 by Terrance Caballero MD) Anemia No pertinent past medical history Family History Maternal Grandmother Heart attack Surgical History (Updated 11/05/24 @ 10:31 by Pam Granda MD) History of liver biopsy Hx of right knee surgery (~2010) Social History Household Members: None Housing: Apartment Are you a primary vocational childcare teacher to a significant other at home: No Do you presently have visiting nurse or other home services: No Patient Tobacco Use Status: Never used Tobacco Smoked in Last 30 Days: No Use of substances other than those prescribed or required for medical reasons: No Advance Directives: No Advance Directives Information Provided: No service: No Current occupational status: unemployed Current occupation: Right hand [employer] Allergies Allergy/AdvReac Type Severity Reaction Status Date / Time No Known Allergies Allergy Verified 11/17/24 16:42 Active Medications: Current Medications Acetaminophen (Acetaminophen 325 Mg Tablet) 650 mg PO Q6H PRN PRN Reason: Pain, Mild 1-3,fever,headache Calcium Carbonate (Calcium Carbonate 750 Mg Tab.Chew) 750 mg PO Q4H PRN PRN Reason: Heartburn Lactated Ringer's (Lr) 1,000 mls @ 100 mls/hr IVCONT .Q10H GEORGINA Magnesium Hydroxide (Milk Of Magnesia 30 Ml Oral.Susp) 30 ml PO DAILY PRN PRN Reason: Constipation Melatonin (Melatonin 3 Mg Tablet) 6 mg PO BEDTIME PRN PRN Reason: Insomnia Sodium Chloride (0.9 % Sodium Chloride Flush 3 Ml Syringe) 3 ml IVFLUSH QSHIFT GEORGINA Home Medications ?Medication ?Instructions ?Recorded ?Confirmed ?Last Taken ?Type multivitamin 1 tab PO DAILY 10/08/24 11/17/24 1 Week Ago History ~10/01/24 Physical Exam Vital Signs and Narrative: Vital Signs: Last Vital Signs Temp 98.5 F 11/17/24 16:41 Pulse 115 H 11/17/24 18:37 Resp 18 11/17/24 18:37 BP 102/66 11/17/24 18:37 Pulse Ox 95 11/17/24 18:37 O2 Del Method Room Air 11/17/24 18:37 BMI result Body Mass Index 27.3 Gen: Appears be in no acute distress HEENT: NCAT, Moist mucosa. Pulmonary: Vesicular breath sounds, fair air entry CVS: Normal S1-S2 Abdomen: BS+, Soft, Nontender Extremities: Warm well perfused Neuro: Alert and awake. Results Labs 11/17/24 16:56 11/17/24 16:56 Labs: Laboratory Results - last 24 hr 11/17/24 11/17/24 16:55 16:56 MCV 76.8 L MCH 23.2 L MCHC 30.1 L RDW 16.3 H Plt Count 358 MPV 9.9 Immature Gran % (Auto) 0.2 Neut % (Auto) 65.7 Lymph % (Auto) 19.0 L [place]ferro % (Auto) 11.6 H Eos % (Auto) 2.9 Baso % (Auto) 0.6 Lymph # (Auto) 1.6 [place] # (Auto) 1.0 Eos # (Auto) 0.3 Baso # (Auto) 0.1 Abs Immat Gran (auto) 0.02 Absolute Neuts (auto) 5.6 Absolute Nucleated RBC 0.000 Nucleated RBC % (auto) 0.0 Hold Purple Top SEE NOTE Anion Gap 15 Estim Creat Clear Calc 97.8 Estimated GFR > 60 Random Glucose 102 Calcium 9.5 Magnesium 2.4 Total Bilirubin 0.3 AST 44 H ALT 25 Alkaline Phosphatase 93 Troponin I High Sens 7.4 Total Protein 8.0 Albumin 3.9 TSH 4.67 H Ethyl Alcohol < 10 Assessment and Plan (1) Atrial fibrillation: Qualifiers: Atrial fibrillation type: unspecified Qualified Code(s): I48.91 - Unspecified atrial fibrillation Status: Acute Plan 54-year-old male with a past medical history of colon cancer presented to the hospital with a chief complaint of tachycardia. Noted to be new onset AFib. New onset AFib with RVR: Heart rate currently improved Metoprolol p.r.n. Low CHADS-VASc score Cardiology consult for further input Echocardiogram TSH Telemetry HX colon cancer: Patient follows with Oncology. DVT prophylaxis: Lovenox Code status: Full code Quality Stroke Does the patient have a stroke diagnosis?: No VTE Prior VTE?: No VTE Risk Level:: Medical - moderate - high VTE Device Contraindication: Treatment Not Indicated VTE Drug Contraindication: N/A - Med Ordered
--- NOTE | 2024-11-17 21:31 | PHA.MEDREC ---
Pharmacy Consult ? Medication Reconciliation Pharmacy has completed the medication reconciliation. Patient reports he is not taking any medications at this time due to not knowing what he should or should not be taking since he just recently got diagnosed with cancer.
[2024-11-17] MEDS: Lactated Ringers 1,000 ML 100 ML IVCONT (22:19)
[2024-11-18] VITALS: BP 121/79; PULSE 95; RESP 20; TEMP 37.1; O2SAT 97
--- NOTE | 2024-11-18 | ECG_ITS ---
Test Reason : converted to sinus Blood Pressure : */* mmHG Vent. Rate : 94 BPM Atrial Rate : 94 BPM P-R Int : 146 ms QRS Dur : 76 ms QT Int : 340 ms P-R-T Axes : 34 30 32 degrees QTcB Int : 425 ms Normal sinus rhythm Normal ECG When compared with ECG of 17-Nov-2024 16:40, Sinus rhythm has replaced Atrial fibrillation Vent. rate has decreased by 47 bpm Referred By: Devin Gagnon Electronically Signed By: ADRY WHITNEY
[2024-11-18 00:31] VITALS: BMI 27.4
[2024-11-18 04:00] VITALS: BP 94/61; PULSE 72; RESP 18; TEMP 36.9; O2SAT 96
--- NOTE | 2024-11-18 07:00 | CA_ITS ---
Transthoracic Echocardiogram Patient (Last, First, Middle): Paras Hughes M Gender: Male Date of : 1970 Age: 54 Procedure Date: 11/18/2024 Procedure Type: Transthoracic [place]ogram [place] [facility] [place]: 177.8 cm Weight: 86.64 kg BSA: 2.05 m2 Heart Rate: bpm BP: 94 / 61 mmHg Animal Shelter Clerk: /RC Referring MD: Terrance Cablalero MD Symptoms: afib Study Quality: Adequate ECG Rhythm: Sinus Conclusions: - The left ventricular systolic function is normal. The calculated ejection fraction is 65% by biplane method. - No obvious valvular pathology seen on this study. Findings Left Ventricle Normal left ventricular cavity size. There is mildly increased left ventricular wall thickness. The left ventricular systolic function is normal. The calculated ejection fraction is 65% by biplane method. There is no evidence of regional wall motion abnormalities. Diastolic function is normal for age. Right Ventricle Normal right ventricular cavity size and systolic function. Atria Both atria are normal in size. Tip of port in right atrium. Aortic Valve There is a normal trileaflet aortic valve. There is no aortic valve stenosis. There is no aortic valve regurgitation. Mitral Valve The mitral valve appears normal. There is trace mitral valve regurgitation. There is no mitral valve stenosis. Pulmonic Valve The pulmonic valve is likely normal. Tricuspid Valve Normal tricuspid valve structure. There is trace tricuspid valve regurgitation. There is no evidence of pulmonary hypertension. Great Vessels The asc aorta is normal in size. Venous The inferior vena cava is normal in size and collapses less than 50% with inspiration. Pericardium/Pleural There is no evidence of pericardial effusion. Prior Study Comparison No prior study available for comparison. Recommendations, Care & Conclusions No obvious valvular pathology seen on this study. Measurements 2D Linear Measurements IVSd: 1.13 0.6-0.9/0.6-1.0 cm LVIDd: 4.62 3.9-5.3/4.2-5.9 cm LVIDd Index: 2.25 2.4-3.2/2.2-3.1 cm/m2 LVIDs: 2.65 2.0-3.6 cm LVPWd: 1.09 0.7-1.1 cm LA Diam: 4.00 2.7-3.8/3.0-4.0 cm LAIDs Index: 1.95 1.5-2.3 cm/m2 LV Mass: 230.26 67-162/88-224 g LV Mass Index: 112.32 43-95/49-115 g/m2 LVOT Diam: 2.30 3.0+(-)1.3 cm 2D Systolic Function EF 4C: 64.90 >55% EF 2C: 66.00 >55% EF BiP: 65.20 >55% Mitral Valve MV VTI: 0.29 MV Pk Gab: 0.88 MV Mn Gab: 0.56 MV Pk Grad: 3.00 MV Mn Grad: 1.00 MV Pk E: 0.75 MV PK A: 0.66 MV Decel Time: 235.00 E/A: 1.10 E'Lateral: 13.90 E'Medial: 7.40 E/E' Med: 10.20 E/E' Lat: 5.40 PHT: 69.00 MVA PHT: 3.19 MVA Continuity: 2.82 Decel [place]: 3.21 Aortic Valve AoV Pk Gab: 1.91 AoV Mn Gab: 1.42 AoV VTI: 0.38 AoV Pk Grad: 15.00 Aov Mn Grad: 9.00 VEDA Cont.VTI: 2.20 LVOT LVOT Pk Gab: 0.97 LVOT Mn Gab: 0.72 LVOT VTI: 0.20 LVOT Pk Grad: 4.00 LVOT Mn Grad: 2.00 LVOT Diam: 2.30 LVOT Area: 4.15 Diastolic Function MV Pk E: 0.75 MV Pk A: 0.66 E/A: 1.10 E'Medial: 7.40 E/E' Med: 10.20 E' Laterial: 13.90 E/E' Lat: 5.40 Right Ventricle TAPSE (mm): 23.80 TVS' Gab: 15.60 Great Vessels Aorta Sinus of Valsalva: 3.00 2.0-3.5 cm Ao Asc: 3.20 2.1-3.4 cm Pulmonary Valve PV Pk Gab: 1.22 Peak PV Grad: 6.00 Updated in Other Vendor System with Status of Final Liban Owens MD electronically signed on 11/18/2024 2:25:17 PM with status of Final
[2024-11-18 07:01] LABS: MANUAL DIFF FLAG NO
[2024-11-18 07:08] LABS: Basophils Absolute Auto 0.1 X10*3/uL (0.0-0.2); Basophils Percent Auto 0.6 % (0-2); Eosinophils Absolute Auto 0.5 X10*3/uL (0.0-0.4); Eosinophils Percent Auto 5.4 % (0-4); Hematocrit 32.7 % (42.0-52.0); Hemoglobin 9.8 g/dl (14.0-18.0); Imm Gran Abs Auto 0.03 X10*3/uL (0.00-0.03); Imm Gran Pct Auto 0.4 % (0.0-0.4); Lymphocytes Absolute Auto 1.3 X10*3/uL (1.2-4.9); Mean Corpuscular Hemoglobin 23.4 pg (27.0-33.0); Monocytes Absolute Auto 0.9 X10*3/uL (0.1-1.2); Monocytes Percent Auto 10.7 % (2-11); Neutrophils Absolute Auto 5.8 x10*3/uL (2.0-8.3); Neutrophils Percent Auto 67.9 % (45-73); Platelet Count 364 X10*3/uL (160-400); Red Blood Count 4.19 X10*6/uL (4.60-5.80); Red Cell Distribution Width 16.6 % (11.0-16.0); White Blood Count 8.5 X10*3/uL (4.8-10.8)
[2024-11-18 07:23] LABS: Alanine Aminotransferase 28 U/L (0-40); Albumin Level 3.5 g/dL (3.5-5.0); Alkaline Phosphatase 88 U/L (39-117); Anion Gap 10 (12-20); Aspartate Amino Transferase 39 U/L (5-37); Bilirubin Total 0.3 mg/dL (0.0-1.0); Blood Urea Nitrogen 12 mg/dL (9-16); Calcium 8.8 mg/dL (8.4-10.2); Carbon Dioxide 27 mmol/L (22-29); Chloride 107 mmol/L (96-108); Creatinine Clr Calc Pharmacy 106.4; Estimated Glomerular Filt Rate > 60; Glucose Random 84 mg/dL (60-115); Potassium 4.2 mmol/L (3.3-5.1); Sodium 140 mmol/L (135-145)
[2024-11-18 08:00] VITALS: BP 127/76; PULSE 80; RESP 18; TEMP 36.9; O2SAT 96
[2024-11-18] MEDS: Lactated Ringers 1,000 ML 100 ML IVCONT ×2 (08:30→17:09)
--- NOTE | 2024-11-18 09:23 | P.CONCA_ITS ---
History of Present Illness History of Present Illness Date of Service: 11/18/24 Chief complaint: New Afib Narrative: This is a cardiology consultation regarding atrial fibrillation. Under review of chart it seems that he has a history of colon cancer and he was getting a Port-A-Cath placement. During the procedure, the heart rate was in the 150s and then he was sent to the emergency room. Patient himself denies any complaints like angina or shortness of breath or palpitations or in fact anything else. He also denies any prior cardiac history. Currently, he is in sinus rhythm and in fact there is no atrial fibrillation on telemetry. Hence probably just a brief episode. Review of Systems 2 Review of Systems: Yes all other systems are reviewed and are negative Constitutional: Constitutional: Reports as per HPI and Reports no additional constitutional complaints Eyes: Eyes: Reports as per HPI and Denies no additional eye complaints ENT: Denies system reviewed and no additional complaints, except as documented and Reports as per HPI Cardiovascular: Cardiovascular: Reports as per HPI, Reports no additional cardiovascular complaints, Denies acrocyanosis, Denies cool extremities, Denies chest pain, Denies leg edema, Denies lightheadedness, Denies palpitations and Denies dyspnea Respiratory: Respiratory: Reports as per HPI, Denies no additional respiratory complaints and Denies dyspnea Gastrointestinal: Gastrointestinal: Reports as per HPI and Denies no additional gastrointestinal complaints Genitourinary: Genitourinary: Reports no additional male genitourinary complaints and Reports as per HPI Musculoskeletal: Musculoskeletal: Reports no additional musculoskeletal complaints and Reports as per HPI Integumentary/Breasts: Skin/Breast: Reports system reviewed and no additional complaints, except as docu Neurologic: Reports system reviewed and no additional complaints, except as documented and Reports as per HPI Psychiatric: Psychiatric: Reports no additional psychiatric complaints and Reports as per HPI Endocrine: Endocrine: Reports no additional endocrine complaints, Reports as per HPI and Denies palpitations Hematologic/Lymphatic: Hematologic/Lymphatic: Reports no additional hematologic/lymphatic complaints and Reports as per HPI Allergic/Immunologic: Allergic/Immunologic: Reports no additional allergic/immunologic complaints and Reports as per HPI [facility] Past Medical History Medical History (Updated 11/18/24 @ 09:26 by Liban Owens MD) Anemia No pertinent past medical history Family History Family History Maternal Grandmother Heart attack Surgical History Surgical History History of liver biopsy Hx of right knee surgery (~2010) Social History Social History Household Members: None Housing: Apartment Are you a primary critical care clinical nurse specialist to a significant other at home: No Do you presently have visiting nurse or other home services: No Patient Tobacco Use Status: Never used Tobacco Smoked in Last 30 Days: No Use of substances other than those prescribed or required for medical reasons: No Currently Displaying Signs/Symptoms of Drug Intoxication Withdrawal: No Have you been hit, kicked, punched, or otherwise hurt by someone within the past year? If so, by whom?: No Do you feel safe in your current relationship?: No Current Relationship Advance Directives: No Advance Directives Information Provided: No Do you have a plan to hurt others: No Plan Recently lost weight without trying: Yes How much weight loss: 14-23 pounds Eating poorly because of decreased appetite: No Nutrition screen score: 4 Nutrition Risks: No Nutritional Risk service: No Current occupational status: unemployed Current occupation: Right hand dominate Meds Allergies Allergy/AdvReac Type Severity Reaction Status Date / Time No Known Allergies Allergy Verified 11/17/24 16:42 Active Medications: Current Medications Acetaminophen (Acetaminophen 325 Mg Tablet) 650 mg PO Q6H PRN PRN Reason: Pain, Mild 1-3,fever,headache Calcium Carbonate (Calcium Carbonate 750 Mg Tab.Chew) 750 mg PO Q4H PRN PRN Reason: Heartburn Lactated Ringer's (Lr) 1,000 mls @ 100 mls/hr IVCONT .Q10H [facility] Last Admin: 11/18/24 08:30 Dose: 100 mls/hr Magnesium Hydroxide (Milk Of Magnesia 30 Ml Oral.Susp) 30 ml PO DAILY PRN PRN Reason: Constipation Melatonin (Melatonin 3 Mg Tablet) 6 mg PO BEDTIME PRN PRN Reason: Insomnia Sodium Chloride (0.9 % Sodium Chloride Flush 3 Ml Syringe) 3 ml IVFLUSH QSHIFT [facility] Last Admin: 11/18/24 08:31 Dose: Not Given Home Medications ?Medication ?Instructions ?Recorded ?Confirmed ?Last Taken ?Type No Known Home Meds 11/17/24 11/17/24 Unknown History Physical Exam 2 Vital Signs: Vital Signs: Last Vital Signs Temp 98.4 F 11/18/24 08:00 Pulse 80 11/18/24 08:00 Resp 18 11/18/24 08:00 BP 127/76 11/18/24 08:00 Pulse Ox 96 11/18/24 08:00 O2 Del Method Room Air 11/18/24 08:00 BMI result Body Mass Index 27.4 Const: General: comfortable and no acute distress O rientation/consciousness: patient oriented x3 HEENT: Other: Unremarkable Head: Yes normal to inspection Neck: Neck: Yes normal visual inspection Chest: Chest palpation & inspection: normal inspection of the chest Resp: Auscultation: clear to auscultation bilaterally Cardio: Palpation: normal PMI Heart sounds: S1 normal heart sound present, S2 normal heart sound present, no gallops, no murmurs and no rubs GI: Palpation (GI): Soft to palpation Back/Spine/Pelvis: Other: unremarkable Skin: General skin exam: no rashes or lesions noted Neuro: General: patient oriented x3 Extrem: General: Yes normal to inspection Psych: Mental Status: mental status grossly normal Objective Labs and Meds 11/18/24 06:39 11/18/24 06:39 Lab results: Laboratory Results - last 24 hr 11/17/24 11/17/24 11/18/24 16:55 16:56 06:39 WBC 8.6 8.5 RBC 4.62 4.19 L Hgb 10.7 L 9.8 L Hct 35.5 L 32.7 L MCV 76.8 L 78.0 L MCH 23.2 L 23.4 L MCHC 30.1 L 30.0 L RDW 16.3 H 16.6 H Plt Count 358 364 MPV 9.9 10.0 Immature Gran % (Auto) 0.2 0.4 Neut % (Auto) 65.7 67.9 Lymph % (Auto) 19.0 L 15.0 L [place] % (Auto) 11.6 H 10.7 Eos % (Auto) 2.9 5.4 H Baso % (Auto) 0.6 0.6 Lymph # (Auto) 1.6 1.3 [place] # (Auto) 1.0 0.9 Eos # (Auto) 0.3 0.5 H Baso # (Auto) 0.1 0.1 Abs Immat Gran (auto) 0.02 0.03 Absolute Neuts (auto) 5.6 5.8 Absolute Nucleated RBC 0.000 0.000 Nucleated RBC % (auto) 0.0 0.0 Hold Purple Top SEE NOTE Sodium 141 140 Potassium 4.4 4.2 Chloride 107 107 Carbon Dioxide 23 27 Anion Gap 15 10 L BUN 14 12 Creatinine 0.87 0.80 Estim Creat Clear Calc 97.8 106.4 Estimated GFR > 60 > 60 Random Glucose 102 84 Calcium 9.5 8.8 D Magnesium 2.4 Total Bilirubin 0.3 0.3 AST 44 H 39 H ALT 25 28 Alkaline Phosphatase 93 88 Troponin I High Sens 7.4 Total Protein 8.0 7.0 Albumin 3.9 3.5 TSH 4.67 H Ethyl Alcohol < 10 ECG Interpretation: EKGs with atrial fibrillation with rapid ventricular response. Currently, in sinus rhythm. Assessment and Plan (1) Atrial fibrillation with rapid ventricular response: Status: Acute Plan High sensitivity troponin is within range. A prior telemetry strip from September shows sinus rhythm. Brief atrial fibrillation in the setting of getting Port-A-Cath catheter which could be related to right atrial irritation. Not clear. Any case, he is back in sinus rhythm. Obtain echocardiogram for cardiac function. Unless there is recurrent atrial fibrillation, we will hold off on medications for now. Procedures Date of Service Date of Service: 11/18/24
[2024-11-18 12:00] VITALS: BP 110/61; PULSE 80; RESP 20; TEMP 36.8; O2SAT 96
--- NOTE | 2024-11-18 12:30 | HO.PM.IMPN ---
Subjective Subjective Date of Service: 11/18/24 Interval History: No complaints Physical Exam Vital Signs: Vital Signs: Last Vital Signs Temp 98.2 F 11/18/24 12:00 Pulse 80 11/18/24 12:00 Resp 20 11/18/24 12:00 BP 110/61 11/18/24 12:00 Pulse Ox 96 11/18/24 12:00 O2 Del Method Room Air 11/18/24 12:00 BMI result Body Mass Index 27.4 General: AO X 3, no acute distress Resp: CTA bilateral, no accessory muscles used CVS: S1,S2,RRR GI: soft, non tender, non distended Neuro: motor grossly intact, alert Psych: appropriate affect, appropriate insight Objective Data Active Medications Acetaminophen (Acetaminophen 325 Mg Tablet) 650 mg PO Q6H PRN PRN Reason: Pain, Mild 1-3,fever,headache Calcium Carbonate (Calcium Carbonate 750 Mg Tab.Chew) 750 mg PO Q4H PRN PRN Reason: Heartburn Lactated Ringer's (Lr) 1,000 mls @ 100 mls/hr IVCONT .Q10H [facility] Last Admin: 11/18/24 08:30 Dose: 100 mls/hr Documented By: POORNIMA Magnesium Hydroxide (Milk Of Magnesia 30 Ml Oral.Susp) 30 ml PO DAILY PRN PRN Reason: Constipation Melatonin (Melatonin 3 Mg Tablet) 6 mg PO BEDTIME PRN PRN Reason: Insomnia Sodium Chloride (0.9 % Sodium Chloride Flush 3 Ml Syringe) 3 ml IVFLUSH QSHIFT [facility] Last Admin: 11/18/24 08:31 Dose: Not Given Documented By: POORNIMA Non-Admin Reason: IV Running Labs 11/18/24 06:39 11/18/24 06:39 Labs: Laboratory Results - last 24 hr 11/17/24 11/17/24 11/18/24 16:55 16:56 06:39 MCV 76.8 L 78.0 L MCH 23.2 L 23.4 L MCHC 30.1 L 30.0 L RDW 16.3 H 16.6 H Plt Count 358 364 MPV 9.9 10.0 Immature Gran % (Auto) 0.2 0.4 Neut % (Auto) 65.7 67.9 Lymph % (Auto) 19.0 L 15.0 L [place] % (Auto) 11.6 H 10.7 Eos % (Auto) 2.9 5.4 H Baso % (Auto) 0.6 0.6 Lymph # (Auto) 1.6 1.3 [place] # (Auto) 1.0 0.9 Eos # (Auto) 0.3 0.5 H Baso # (Auto) 0.1 0.1 Abs Immat Gran (auto) 0.02 0.03 Absolute Neuts (auto) 5.6 5.8 Absolute Nucleated RBC 0.000 0.000 Nucleated RBC % (auto) 0.0 0.0 Hold Purple Top SEE NOTE Anion Gap 15 10 L Estim Creat Clear Calc 97.8 106.4 Estimated GFR > 60 > 60 Random Glucose 102 84 Calcium 9.5 8.8 D Magnesium 2.4 Total Bilirubin 0.3 0.3 AST 44 H 39 H ALT 25 28 Alkaline Phosphatase 93 88 Troponin I High Sens 7.4 Total Protein 8.0 7.0 Albumin 3.9 3.5 TSH 4.67 H Ethyl Alcohol < 10 Assessment and Plan (1) Atrial fibrillation: Status: Acute Plan 54M PMH adenocarcinoma of the colon with liver Mets presented with new onset AFib after Port-A-Cath placement New onset AFib with rapid ventricular response Now in normal sinus rhythm Likely triggered by procedure, cardio appreciated we will hold off on meds for now Follow up echo Nonsustained ventricular tachycardia Follow up echo Colon cancer with liver Mets Outpatient Oncology follow up DVT prophylaxis with Lovenox Full Code reason for continued hospitalization: Awaiting echo Quality Stroke Does the patient have a stroke diagnosis?: No VTE Prior VTE?: No VTE Risk Level:: Medical - moderate - high VTE Device Contraindication: Treatment Not Indicated VTE Drug Contraindication: N/A - Med Ordered
--- NOTE | 2024-11-18 13:48 | MHC.CLN ---
CONSULT HT 70 WT 86.7KG BMI 27.4 INDICATES OVER WT FOR HT PT WITH 15% SIGNIFICANT WT LOSS X 6 MONTHS R/T COLON CA WITH LIVER METS DIET RX: 2GM NA-APPROPRIATE WILL ADD ENSURE BID TO INCREASE KCALS MONITOR PO INTAKE AND ENCOURAGE SUPPLEMENTS
--- NOTE | 2024-11-18 13:52 | MHC.CM.PN ---
IMM 11/18/24 DX AFIB DURING PORT-A-CATH INSERTION OUT PT. PT SENT TO ER admitted for observation Afib. Patient has Colon CA w Mets. Dr Granda oncologist, no pcp. The [facility] brochure was provided He states that he is independent. He lives by himself. Cardiac consult: ECHO ordered DP home self care. [facility] shuttle will provide transportation home.
[2024-11-18 15:59] VITALS: BP 118/57; PULSE 96; RESP 17; TEMP 36.7; O2SAT 95
--- NOTE | 2024-11-18 17:37 | P.DS_ITS ---
DS: Providers Provider Date of Service: 11/18/24 Date of admission: 11/17/24 20:40 Date of discharge: 11/18/24 Primary care physician: None Physician Consults: 11/17/24 20:40 Consult to Cardiology Routine Consulting Provider: [facility] Reason for consultation: new afib DS: Diagnosis Discharge Diagnosis (1) Atrial fibrillation: Status: Acute DS: Summary Hospital Course Hospital Course: from initial hpi: 54-year-old male with a past medical history of colon cancer presented to the hospital with a chief complaint of tachycardia. Patient was having Port-A-Cath placement, during the procedure patient was noted to have heart rate in 150s; subsequently sent to the hospital for further evaluation. Patient denied any chest pain or palpitations. Denies any shortness of breath dyspnea on exertion. Denies any GI or symptoms. Review of all other systems is negative except mentioned above ER course: Per ER team the patient to be in new onset AFib with rapid ventricular response; heart rate gradually improved; given IV fluids; CT chest showed no evidence of PE. hospital course: patient was admitted for new onset afib with rvr, likely triggered by port a cath irritation of righ atrium. he converted to NSR. echo was unremarkable. he did have short burst of NSVT. tsh and electolytes normal. will be discharged home, will follow up with cardiology if recurs may need adjustment of catheter. for colon cancer will follow up with oncology Time Attestation Discharge Coordination Time (in mins): 33 Quality: Safe Use of Opioids Does Pt have an Active Cancer Diagnosis on the Problem List?: Yes Opioid Measure Date for [facility] Report: 10/19/24 Opioid Measure Time for [facility] Report: 17:38 Quality: Stroke Does the patient have a stroke diagnosis?: No Physical Exam Vital Signs: Vital Signs: Last Vital Signs Temp 98.1 F 11/18/24 15:59 Pulse 96 11/18/24 15:59 Resp 17 11/18/24 15:59 BP 118/57 L 11/18/24 15:59 Pulse Ox 95 11/18/24 15:59 O2 Del Method Room Air 11/18/24 15:59 BMI result Body Mass Index 27.4 General: AO X 3, no acute distress Resp: CTA bilateral, no accessory muscles used CVS: S1,S2,RRR GI: soft, non tender, non distended Neuro: motor grossly intact, alert Psych: appropriate affect, appropriate insight DS: Data Data Completed and Pending Labs on day of discharge: Laboratory Results - last 24 hr 11/17/24 11/18/24 16:56 06:39 WBC 8.5 RBC 4.19 L Hgb 9.8 L Hct 32.7 L MCV 78.0 L MCH 23.4 L MCHC 30.0 L RDW 16.6 H Plt Count 364 MPV 10.0 Immature Gran % (Auto) 0.4 Neut % (Auto) 67.9 Lymph % (Auto) 15.0 L [place] % (Auto) 10.7 Eos % (Auto) 5.4 H Baso % (Auto) 0.6 Lymph # (Auto) 1.3 [place] # (Auto) 0.9 Eos # (Auto) 0.5 H Baso # (Auto) 0.1 Abs Immat Gran (auto) 0.03 Absolute Neuts (auto) 5.8 Absolute Nucleated RBC 0.000 Nucleated RBC % (auto) 0.0 Sodium 140 Potassium 4.2 Chloride 107 Carbon Dioxide 27 Anion Gap 10 L BUN 12 Creatinine 0.80 Estim Creat Clear Calc 106.4 Estimated GFR > 60 Random Glucose 84 Calcium 8.8 D Total Bilirubin 0.3 AST 39 H ALT 28 Alkaline Phosphatase 88 Total Protein 7.0 Albumin 3.5 TSH 4.67 H Ethyl Alcohol < 10 Discharge Plan Discharge Anticipated Discharge Date/Time: 11/18/24 17:36 Patient Disposition: Home, Self-Care Discharge Diagnosis: afib Referrals: Physician,None [Primary Care Provider] - 1 Week Discharge Medications: No Action No Known Home Meds Discharge Orders: Discharge Order (Routine); Ordered 11/18/24 Ordered By: Devin Gagnon Diet: Advance to usual diet Activity on Discharge: As tolerated Stand Alone Forms: Patient Portal Discharge page Print Language: [place] Island[place] Care Plan Goals: avoid afib Health Concerns: afib, and nsvt Plan of Treatment: follow up with oncology, cardiology Assessment: see above
== END 2024-11-18 18:39 | disposition home or self-care (01) | DRG 315 ==
LOC: HO.ED 20:39 → HO.EDOVER 20:53 → HO.IMC 23:32
PROVIDERS: Physician Assistant Medical; Admitting Provider Hospitalist; Emergency Provider Emergency Medicine Emergency Medical Services; Visit Provider Internal Medicine
DX: I97.89 Other postprocedural complications and disorders of the circulatory system, not elsewhere classified (principal); C18.9 Malignant neoplasm of colon, unspecified; I47.20 Ventricular tachycardia, unspecified; C78.7 Secondary malignant neoplasm of liver and intrahepatic bile duct; I48.91 Unspecified atrial fibrillation
CPT/HCPCS: 36415; 36561; 71275; 76937; 80053; 80307; 83735; 84443; 84484; 85025; 93005; 93306; 99152; 99153; 99285; C1769; C1788; J0690; J1642; J1644; J2003; J2250; J3010; J7120; Q9957; Q9967

== ENCOUNTER → 2024-11-17 17:34 | Outpatient (BNV) | payer MEDICARE, MEDICAID, SELFPAY | PROVIDERS: Admitting Provider Hospitalist; Emergency Provider Emergency Medicine Emergency Medical Services; Visit Provider Student in an Organized Health Care Education/Training Program | DX: R91.1 Solitary pulmonary nodule (principal) | CPT/HCPCS: 71275 ==

== ENCOUNTER 2024-11-17 20:40 | Outpatient (BNV) | payer MEDICARE, MEDICAID, SELFPAY | END 2024-11-18 07:00 | PROVIDERS: Admitting Provider Hospitalist; Emergency Provider Emergency Medicine Emergency Medical Services; Visit Provider Internal Medicine | DX: I48.91 Unspecified atrial fibrillation (principal) | CPT/HCPCS: 93306 ==

== ENCOUNTER → 2024-11-17 20:40 | Outpatient (BNV) | payer MEDICARE, MEDICAID, SELFPAY | PROVIDERS: Admitting Provider Hospitalist; Emergency Provider Emergency Medicine Emergency Medical Services; Visit Provider Internal Medicine | DX: I48.91 Unspecified atrial fibrillation (principal) | CPT/HCPCS: 93010; 99223 ==

== ENCOUNTER → 2024-11-17 20:40 | Outpatient (BNV) | payer MEDICARE, MEDICAID, SELFPAY | PROVIDERS: Admitting Provider Hospitalist; Emergency Provider Emergency Medicine Emergency Medical Services; Visit Provider Internal Medicine | DX: I48.91 Unspecified atrial fibrillation (principal) | CPT/HCPCS: 99222; 99239; 99499 ==

== ENCOUNTER 2024-12-05 14:40 | Inpatient (IN) | payer MEDICARE, MEDICAID, SELFPAY ==
[2024-12-05] VITALS (9 sets, daily range): BP systolic 99–178; BP diastolic 62–102; PULSE 108–144; RESP 16–30; TEMP 32–36.8; O2SAT 93–98; BMI 30.7; BMI 30.9
--- NOTE | ~2024-12-05 | XR_ITS ---
EXAMINATION: XR CHEST 1 VIEW HISTORY: Verify ETT Placement COMPARISON: Comparison is made with the prior examination dated 12/13/2024. FINDINGS: Two AP portable views of the chest performed at 7:53 AM are submitted. A right-sided port and an orogastric tube are unchanged in position. No endotracheal tube is identified. There is opacification of the left lung base which may represent atelectasis or pneumonia. There is a probable small left pleural effusion. There is no pneumothorax or pulmonary vascular congestion. The heart is normal in size. The bones are intact. XR/XR chest 1V IMPRESSION: 1. Right-sided port and orogastric tube without change. No endotracheal tube is identified on these images. If there is an endotracheal tube in place, a repeat study to include the lower neck is suggested. Alternatively, the endotracheal tube could be advanced and a repeat chest x-ray could be performed. 2. Opacification of the left lung base which may represent atelectasis or pneumonia. Probable small left pleural effusion. Electronically signed by: Valentin Doyle MD 12/14/2024 08:10 AM EDT
--- NOTE | ~2024-12-05 | CT_ITS ---
CLINICAL HISTORY: rule out PE - not for PE, metastasis per [facility] CT chest with contrast Comparison: None provided Findings: Enteric tube appears partially loops in imaged pharynx in the supraglottic airway with tip of the enteric tube below the field of view. The endotracheal tube terminates in the mid to lower thoracic trachea. Small bilateral pleural effusions with underlying atelectasis/consolidation of the both lungs. [id number] cardiomegaly with multi chamber enlargement of the heart. Small pericardial effusion with mild mediastinal fluid. No pneumothorax. Index pulmonary nodule measures 9 mm with motion artifacts in the left upper lobe (imaged 65 of series 13). Ground-glass likely please refer to separate report for included imaged abdomen with free fluid in the abdomen. Anasarca is considered given subcutaneous edema and mediastinal fluid at this time. Small mediastinal lymph nodes are likely reactive. Degenerative changes include imaged spine, manubrium, and partially imaged shoulders. Mild imaged rib deformities appear old/chronic. IMPRESSION: 1. Anasarca with small bilateral pleural effusions, left worse than right. 2. Multifocal pulmonary opacities with bibasilar atelectasis and/or consolidation. Recommend attention on follow-up to ensure resolution. 3. Pulmonary nodule in the left upper lobe is concerning for small metastasis, given the reported history. Please refer to separate report for included abdomen with multifocal fluid and concern for abscesses in the imaged abdomen. This document has been electronically signed by: Elliott Mcmahan MD on 12/23/2024 02:40:19
--- NOTE | ~2024-12-05 | CT_ITS ---
EXAMINATION: CT ABDOMEN PELVIS WITHOUT IV CONTRAST HISTORY: hx of perf sigmoid, fecal peritonitis, ?abscess COMPARISON: Comparison is made with the prior examination dated 12/05/2024. TECHNIQUE: CT scan of the abdomen and pelvis was performed without contrast using standard departmental protocol. Coronal and sagittal reformatted images were generated and reviewed. Oral contrast material was not administered at the request of the referring physician. This CT exam was performed with one or more of the following dose reduction techniques: automated exposure control, adjustment of the mA and/or kV according to patient size, use of iterative reconstruction technique. DLP: 1230 mGy-cm FINDINGS: LOWER CHEST: There is airspace opacity at both lung bases, consistent with atelectasis or pneumonia. There are small bilateral pleural effusions. CARDIOVASCULATURE: The heart is normal in size. There is no pericardial effusion. LIVER: The liver is normal in size and contour. Multiple hypodensities are again seen in the liver consistent with metastatic disease. These are less well visualized without intravenous contrast. GALLBLADDER / BILE DUCTS: The gallbladder is distended. No calcified stones are identified. There is no intra or extrahepatic biliary ductal dilatation. SPLEEN: The spleen is normal in size and has an unremarkable unenhanced appearance. PANCREAS: The pancreas has an unremarkable unenhanced appearance. ADRENAL GLANDS: Unremarkable. KIDNEYS/RETROPERITONEUM: No renal calculi are identified. There is no hydronephrosis. LYMPH NODES: No retroperitoneal lymphadenopathy is identified in the abdomen or pelvis. VASCULATURE: The abdominal aorta is normal in caliber. A left femoral venous line is seen in place. MESENTERY/PERITONEUM: There is a small amount of free fluid around the liver. There is a soft tissue mass adjacent to the left common iliac vessels and psoas muscles measuring approximately 2.4 cm in size without change, suspicious for metastatic disease. Evaluation is limited by lack of intravenous and oral contrast material. There is diffuse infiltration of the mesentery consistent with the history of peritonitis. A surgical drain is seen in the left lower quadrant which is surrounded by fluid and a few bubbles of extraluminal gas. There is a fluid collection in the left midabdomen measuring 6.4 x 5.2 x 5.9 cm (series 3, image 48 and series 4, image 88) and a fluid collection in the right midabdomen measuring 3.6 x 2.9 x 3.8 cm (series 3, image 57 and series 4, image 62). There is a small amount of free air beneath the umbilical incision. STOMACH: A nasogastric tube is seen in place. SMALL BOWEL: The small bowel is normal in caliber. COLON: There is a large amount of stool in the ascending colon. A colostomy is noted in the right lower quadrant. The patient is status post sigmoid resection since the prior study. There is a large amount of fluid in the rectum. APPENDIX: Normal. URINARY BLADDER/PELVIC ORGANS: The urinary bladder is collapsed with a Sanchez catheter. The prostate is normal in size. BONES / SOFT TISSUES: The bones are intact. CT/CT abdomen pelvis wo IV con IMPRESSION: 1. Status post sigmoid resection with right lower quadrant colostomy formation since the prior study. 2. Diffuse infiltration of the mesenteric fat consistent with the clinical history of peritonitis. 3.6 x 2.9 x 3.8 cm fluid collection in the right midabdomen and 6.4 x 5.2 x 5.8 cm fluid collection in the left midabdomen which could represent abscesses. Evaluation is limited by lack of intravenous and oral contrast material. 3. Hepatic lesions as seen previously, suspicious for metastatic disease. 2.4 cm soft tissue mass in the left lower quadrant without change, suspicious for metastatic disease. 4. Airspace opacity at both lung bases, consistent with atelectasis or pneumonia. Small bilateral pleural effusions. Electronically signed by: Valentin Doyle MD 12/11/2024 11:03 AM EDT
--- NOTE | ~2024-12-05 | XR_ITS ---
CLINICAL HISTORY: femoral ventral line placement 1 view abdomen Comparison: None provided Findings: No pneumoperitoneum or pneumatosis. No abnormal calcifications. Left femoral line tip is in the left hemipelvis, possibly in the common iliac vein. No acute fractures. IMPRESSION: The bowel gas pattern is normal This document has been electronically signed by: Paras Pierre MD on 12/06/2024 07:17:19
--- NOTE | ~2024-12-05 | XR_ITS ---
CLINICAL HISTORY: ngt placement Chest X-ray, 1 View COMPARISON: None provided FINDINGS: The upper lungs are excluded from the study. Enteric tube in place, with tip projecting below the diaphragm in the region of the stomach. Central venous access port implanted in the right chest wall with catheter tip projecting over the right atrium. Left lower lung consolidation. Left pleural effusion. No pneumothorax. No cardiomegaly. No acute fracture. IMPRESSION: Enteric tube as above. Left lower lung consolidation, which could be due to pneumonia. Left pleural effusion. This document has been electronically signed by: Danial Hernandez MD on 12/17/2024 23:20:18
--- NOTE | ~2024-12-05 | CT_ITS ---
CLINICAL HISTORY: History of colon cancer worsening abdominal pain d CT abdomen and pelvis with contrast Comparison: CT/AR/SR - CT ABDOMEN WO IV CON - 10/20/24 13:[address]/AR/SR - CT ABDOMEN PELVIS W IV CON - 10/08/24 09:38 EDT Findings: Scattered right middle and right lower lobe pulmonary nodules, increased in size from prior for example series 3, image 7 measuring 7 mm concerning for progressive pulmonary metastases. Question left lower lobe nodule versus volume averaging series 3, image 1 measuring 1.2 cm. Hepatomegaly with steatosis and nodular contours suggesting possible cirrhosis. Enlarging ill-defined hypoattenuating liver lesions concerning for progressive metastasis, for example in the lateral right lobe measuring 2.9 cm series 6, image 42. Mildly distended gallbladder. Redemonstrated magdalene hepatis adenopathy, for example a lymph node abutting the gallbladder series 6, image 36 measuring 1.4 cm, increased in size from prior. As well, there is enlarging pericaval, retroperitoneal adenopathy. Right-sided hypodense renal cysts. No urolithiasis. Prominent masslike mural thickening of the proximal sigmoid colon in the left lower quadrant with ill-defined borders, pneumatosis and adjacent free air with extensive fluid stranding and inflammatory changes. There is an adjacent ill-defined fluid collection with multiple air bubbles, measuring 11.7 x 8.5 cm on coronal concerning for perforation with pericolonic abscess. Additional soft tissue nodularities noted throughout the adjacent mesentery, for example series 6, image 51 measuring 3.4 cm, increased in size from prior. Several scattered diverticuli. Colitis and/or diverticulitis considered as well. Moderate colonic stool burden. No bowel obstruction. Normal appendix. Scattered foci of pneumoperitoneum. Small volume ascites with peritoneal wall thickening and enhancement suggesting peritonitis. Bladder is decompressed. Osteopenia with diffuse multilevel spondylosis. IMPRESSION: 1. Perforated sigmoid diverticulitis versus colitis secondary to an ill-defined colonic mass. Adjacent large ill-defined fluid collection concerning for pericolonic abscess. Free air, small volume free fluid and peritonitis. Surgical consult advised. 2. Progressive pulmonary, hepatic and lymphomatous metastases. Oncological consult advised. This document has been electronically signed by: Keshav Perales MD on 12/05/2024 17:40:02
--- NOTE | ~2024-12-05 | XR_ITS ---
CLINICAL HISTORY: intubation 1 view chest x-ray Comparison: CR - XR CHEST 1V - 12/17/24 02:26 EDT Findings: Tip of NG tube is overlying the stomach. Right-sided Port-A-Cath. Tip of endotracheal tube is at thoracic inlet 3.5-5.4 cm above gretchen. Mild opacity of the left lung base. Normal size heart. No acute fracture. IMPRESSION: Tip of endotracheal tube 3.5 cm-5.4 cm above gretchen. This document has been electronically signed by: Bina Regalado MD on 12/22/2024 18:00:46
--- NOTE | ~2024-12-05 | XR_ITS ---
CLINICAL HISTORY: intubated Exam: AP portable chest x-ray. Comparison: December 05, 2024. Findings: Patient has been intubated. Tip of the endotracheal tube is 4.5 cm superior to the gretchen. Enteric sump tube has been placed with tip projected over the proximal gastric body. Right-sided Port-A-Cath remains in place with tip projected over the right atrium. Lungs are hypoinflated. Cardiac silhouette is within normal limits for degree of inflation. Atelectasis within the right cardiophrenic angle. No pleural effusion or pneumothorax. Impression: Support apparatus as above. This document has been electronically signed by: Hai Leon MD on 12/06/2024 12:14:29
--- NOTE | ~2024-12-05 | XR_ITS ---
CLINICAL HISTORY: NGT placement 1 view chest x-ray. Comparison: CR/SR - XR CHEST 1V - 12/14/24 07:48 EDT Findings: Enteric tube identified coursing below the diaphragm with the distal tip projecting over the left upper abdominal quadrant, at the expected location of the mid stomach. Stable positioning of the right internal jugular venous chest port. This examination is mildly limited by suboptimal patient positioning and pulmonary hypoinflation with bronchovascular crowding. Mild density present at the left lung base with obscuration of the left hemidiaphragm. No pneumothorax or significant right pleural effusion identified. The left lung apex has been excluded from this examination. The heart size is mildly enlarged. Impression: 1. Enteric tube in place with the distal tip projecting over the left upper abdominal quadrant, at the expected location of the mid stomach. 2. Pulmonary hypoinflation with bronchovascular crowding. There is mild cardiomegaly with the mild ill-defined left basilar density which may represent atelectasis, infiltrates, and/or a small left pleural effusion. This document has been electronically signed by: Renard Magana MD on 12/17/2024 04:31:17
--- NOTE | ~2024-12-05 | XR_ITS ---
CLINICAL HISTORY: sob 1 view chest x-ray Comparison: CT/SR - CT ANGIO CHEST PE PROTOCOL - 11/17/24 19:21 EDT Findings: Tip of the right-sided Port-A-Cath is overlying the right atrium. No consolidation or effusion. There are pulmonary nodules. Heart size is normal. No acute fracture. IMPRESSION: 1. No acute findings. This document has been electronically signed by: Bina Regalado MD on 12/05/2024 16:21:08
--- NOTE | ~2024-12-05 | CT_ITS ---
CLINICAL HISTORY: aCUTE ms CHANGES HX MET ca R O BRAIN METS MASS CT head with and without contrast Comparison: None provided Findings: No acute intracranial hemorrhage. No midline shift or hydrocephalus. Mild volume loss is generalized and greater than expected for age. Posterior fossa arachnoid cysts measures [address] Vascular enhancement noted. No definite or large intra-axial enhancing brain mass by CT. No large arterial territorial infarction by CT. Mucosal thickening of the imaged paranasal sinuses. Variant asymmetric pneumatization of the sphenoid sinus, clinoid processes, and petrous apices. Small mastoid effusions, right greater than left. No acute skull fracture. No defined aggressive appearing lytic lucency of the calvarium. IMPRESSION: 1. Negative head CT. Considered more sensitive evaluation for brain metastasis with outpatient MRI, assuming no contraindications to MRI. 2. No acute intracranial abnormality by CT. 3. Bilateral mastoid effusions, right greater than left. This document has been electronically signed by: Elliott Mcmahan MD on 12/23/2024 02:53:50
--- NOTE | ~2024-12-05 | CT_ITS ---
CLINICAL HISTORY: to look for abscess CT abdomen and pelvis with contrast Comparison: CT of the abdomen and pelvis from 12/11/2024 Findings: Diffuse subcutaneous edema with likely anasarca and small pleural effusions. Underlying atelectasis/consolidation noted in the imaged lung bases. Cardiomegaly is redemonstrated. New walled-off fluid collection with peripheral wall enhancement measures 2.1 x 2.4 x 1.8 cm concerning for new wall abscess adjacent to remaining distal sigmoid and/or rectosigmoid junction (image 95 of series 17). Left-sided surgical drain is in place terminating near suture line and/or volume and of the distal large intestine. Severe stool burden of the proximal large intestine dense stool and/or contrast extending to right-sided ostomy. Additional fluid collection phlegmonous change or forming abscess measures 2.9 x 4.7 x 11.5 cm in the anterior aspect of the right pericolic gutter with question partial septation and/or multi loculation anterior to majority of the cecum (imaged 55 of series 17 of the imaged 34 of series 35). Multiple diverticula redemonstrated. Small bowel dilatation is nonspecific in the right hemiabdomen with small-bowel loops measuring at the upper limits of normal. [place] loop ileus from adjacent inflammation is considered. Developing small-bowel obstruction also considered. Enteric tube terminates in the distal stomach with artifacts noted. Fat deposition of the liver. Low-density of the dome of the liver measures 1 cm may reflect forming phlegmonous change. Cysts also considered. Additional areas of low attenuation may reflect phlegmonous change and/or forming abscesses less than 1 cm including inferior margin of the liver. Pericholecystic fluid is nonspecific given multifocal and/or free fluid throughout the imaged abdomen and pelvis. Mild adrenal hyperplasia. Mild volume loss of the pancreas, including the tail. Borderline splenomegaly. No hydronephrosis. Renal cysts are redemonstrated. Ventral skin jose luis noted with gas and fluid laparotomy. Phlegmonous change of the arachnoid cysts are considered with the inferior ulceration and/or open wound more pronounced relative to recent comparison study. Pelvis deformities appear old/chronic. Degenerative changes include the hips, SI joints, and spine. Artifacts noted including from superficial metal related to positioning of the upper extremities. Degenerative changes include multifocal degenerative disc changes and facet arthropathy of the imaged spine. IMPRESSION: 1. New fluid collections and/or forming abscesses including anterior to the cecum and small focus in the left lower quadrant adjacent to remaining distal large intestine. 2. New small bowel dilatation concerning for small bowel obstruction versus ileus. Enteric tube is in place. 3. Severe and dense stool burden of the large intestine extending to right-sided ostomy. This document has been electronically signed by: Elliott Mcmahan MD on 12/23/2024 02:31:08
--- NOTE | ~2024-12-05 | CT_ITS ---
EXAMINATION: CT ABDOMEN AND PELVIS WITHOUT CONTRAST CLINICAL INFORMATION: Follow-up fluid collection COMPARISON: CT abdomen and pelvis 12/23/2024 at 12:59 AM . TECHNIQUE: Multidetector volumetric imaging was performed from the superior aspect of the liver through the pubic symphysis. Sagittal and coronal reformatted images were obtained on the technologist's workstation. This CT examination was performed using dose optimization techniques as appropriate, variously including the following: *Automated exposure control *Adjustment of mA and/or kV according to patient size (this includes techniques or standardized protocols for targeted exams where dose is matched to indication/reason for exam; i.e. extremities or head) *Use of iterative reconstruction technique DLP: 370 mGy/cm. FINDINGS: LUNG BASES: There is persistent bilateral pleural effusion with larger left lower lobe and a smaller right lower lobe airspace consolidation. The heart size is borderline. There is no pericardial effusion. There is an enteric tube. LIVER, GALLBLADDER, AND BILIARY TREE: The liver is normal in size, shape, and attenuation. No focal hepatic lesion or biliary ductal dilatation is present. The gallbladder is unremarkable with no evidence of radiopaque gallstones, gallbladder wall thickening, or obvious pericholecystic inflammatory changes. PANCREAS: Unremarkable. SPLEEN: Unremarkable. ADRENAL GLANDS: Unremarkable. KIDNEYS AND URETERS: The kidneys are normal in size, shape, and attenuation. No hydronephrosis, hydroureter, or calculi seen. No perinephric stranding. There is excreted urinary contrast in the pelvic lysis without dilation. BLADDER: Unremarkable. GASTROINTESTINAL TRACT: There is diffuse periportal edema/anasarca. There is a right lower quadrant colostomy with contrast visualized in the left colon. There is a Beltran's pouch with a blind-ending sigmoid colon in left upper pelvis. Previously seen fluid collection adjacent to the low situated cecum persists and measures 2.6 cm wide on axial image 79/4. There is no axis eligible for drainage. There is a left-sided surgical drain in the left lower quadrant and is stable. The right paracolic collection measuring 3.9 x 3.0 cm on axial image 53/4 appears stable. Multiple colonic diverticuli are stable. There is no bowel obstruction seen. ABDOMINAL WALL: There is a midline anterior wall open suture line which is unchanged the previous study there is now mild edema and soft tissue thickening in this region. LYMPH NODES: Normal. VASCULAR: The abdominal aorta is unremarkable. The IVC is flattened likely secondary to dehydration. PELVIC VISCERA: Shiley visualized pelvis reveals mild presacral wall thickening similar previous study likely postsurgical. And/or granulation tissue or edema. OSSEOUS STRUCTURES: No aggressive lytic or sclerotic process. There is mild degenerative disc changes L2-3 and ventral spondylosis lower dorsal and upper lumbar spine. CT/CT abdomen pelvis wo IV con IMPRESSION: Stable small fluid collection/abscess to the right of low-lying cecum in the upper pelvis. Small right paracolic collection is stable as well. There is diffuse peritoneal edema and anasarca. [Anterior abdominal wall surgical suture site is stable however there is mild edema along the suture line. Colonic diverticulosis without diverticulitis. Bilateral small pleural effusions and bilateral lower lobe consolidations are grossly stable. Fleischner guidelines were followed. Electronically signed by: Rod Randall MD 01/01/2025 09:44 AM EDT
--- NOTE | ~2024-12-05 | XR_ITS ---
CLINICAL HISTORY: ETT placement 1 view chest x-ray Comparison: CR - XR CHEST 1V - 12/06/24 11:25 EDT Findings: Endotracheal tube terminates 8 cm above the gretchen, above the level of the thoracic inlet. Enteric tube courses below the diaphragm, likely looped within the gastric fundus. Right chest port in unchanged position. Low lung volumes with likely left basilar atelectasis and possibly a layering left effusion. Heart size is stable. No pneumothorax or acute osseous findings. IMPRESSION: 1. Endotracheal tube 8 cm above the gretchen above the level of the thoracic inlet. 2. Increasing left basilar atelectasis with new left effusion. This document has been electronically signed by: Sharon Alba MD on 12/13/2024 07:03:34
--- NOTE | 2024-12-05 14:47 | ED.ABDPAIN ---
HPI - Abdominal Pain General Chief Complaint: Abdominal Pain Stated Complaint: stage 4 ca abd pain Time Seen by Provider: 12/05/24 15:03 Related Data Previous Rx's ?Medication ?Instructions ?Recorded dexamethasone 4 mg tablet 4 mg PO BID #30 tabs 11/25/24 ondansetron 8 mg disintegrating 8 mg PO Q8H PRN Nausea vomiting 11/25/24 tablet #60 tabs Allergies Allergy/AdvReac Type Severity Reaction Status Date / Time No Known Allergies Allergy Verified 12/05/24 14:57 [facility] Past Medical History Medical History (Updated 12/05/24 @ 18:26 by Bam Collazo MD) Perforated viscus Anemia No pertinent past medical history Surgical History History of liver biopsy Hx of right knee surgery (~2010) Family History Family History Maternal Grandmother Heart attack Social History Social History Household Members: None Housing: Apartment Are you a primary anesthesiologist and critical care to a significant other at home: No Do you presently have visiting nurse or other home services: No Patient Tobacco Use Status: Never used Tobacco Advance Directives: No Advance Directives Information Provided: No service: No Current occupational status: unemployed Current occupation: Right hand dominate Physical Exam ED Vital Signs: Vital Signs - 24 hr 12/05/24 14:45 12/05/24 15:43 12/05/24 16:00 Temperature 97.6 F 98.3 F Pulse Rate 129 H 144 H 130 H Respiratory Rate 22 H 30 H 19 Blood Pressure 123/73 116/66 Pulse Oximetry 96 95 Oxygen Delivery Method Room Air Room Air Room Air 12/05/24 17:05 12/05/24 18:44 Temperature Pulse Rate 120 H 111 H Respiratory Rate 22 H 18 Blood Pressure 104/62 105/68 Pulse Oximetry 93 Oxygen Delivery Method Room Air BMI result Body Mass Index 30.7 Course Course Course Narrative: This is an RME: Additional HPI, ROS, PE not included below will be deferred to primary provider. RME assessment and note performed by: Shelbie Pollock PA-C This is a [id number], with a hx of a fib not anticoagulated, colon cancer, who presents to the ER with complaints of abdominal pain, decreased appetite. +subjective fevers. Endorsing lightheadedness. Last ate yesterday. Took ibuprofen and tylenol without any relief. Pt appears uncomfortable, tachycardic in the 130s. Pt brought back to main ED for further evaluation and treatment. Plan: Labs, EKG, further ER eval needed Medical Decision Making Lab Data 12/05/24 15:46 12/05/24 15:46 Labs: Lab Results 12/05/24 12/05/24 12/05/24 Range/Units 15:34 15:46 15:52 WBC 7.4 (4.8-10.8) X10*3/uL RBC 5.09 D (4.60-5.80) X10*6/uL Hgb 11.6 L D (14.0-18.0) g/dl Hct 38.6 L D (42.0-52.0) % MCV 75.8 L (80.0-98.0) fL MCH 22.8 L (27.0-33.0) pg MCHC 30.1 L (31.0-36.0) g/dl RDW 16.6 H (11.0-16.0) % Plt Count 619 H D (160-400) X10*3/uL MPV 9.3 L (9.4-12.4) fL Immature Gran % (Auto) Cancelled Neut % (Auto) Cancelled Lymph % (Auto) Cancelled [place] % (Auto) Cancelled Eos % (Auto) Cancelled Baso % (Auto) Cancelled Lymph # (Auto) Cancelled [place] # (Auto) Cancelled Eos # (Auto) Cancelled Baso # (Auto) Cancelled Abs Immat Gran (auto) Cancelled Absolute Neuts (auto) Cancelled Absolute Nucleated RBC 0.000 (0.0-0.012) X10*3/uL Nucleated RBC % (auto) 0.0 (0.0-0.2) /100WBC Neutrophils % (Manual) 81 H (45-73) % Band Neutrophils % 8 H (3-5) % Lymphocytes % (Manual) 10 L (20-40) % Monocytes % (Manual) 1 L (2-11) % Abs Neuts (Manual) 6.6 (2.0-8.3) X10*3/uL Lymphocytes # (Manual) 0.7 L (1.2-4.9) X10*3/uL Monocytes # (Manual) 0.1 (0.1-1.2) X10*3/uL Toxic Granulation PRESENT Dohle Bodies PRESENT Platelet Estimate INCREASED (NORMAL) Plt Morphology Comment NORMAL RBC Morphology NOTED [place] Cells 2+ (3-5) /OIF PT (10.9-12.4) SEC INR (0.9-1.1) VBG pH 7.33 (7.32-7.43) VBG pCO2 39 mmHg VBG pO2 36 mmHg VBG HCO3 21 L (22-26) mmol/L VBG O2 Saturation 42.0 % VBG Base Excess -4.5 mmol/L Sodium 137 (135-145) mmol/L Potassium 4.9 (3.3-5.1) mmol/L Chloride 104 (96-108) mmol/L Carbon Dioxide 18 L (22-29) mmol/L Anion Gap 20 (12-20) BUN 16 (9-16) mg/dL Creatinine 0.89 (0.5-1.4) mg/dL Estim Creat Clear Calc 95.3 Estimated GFR > 60 Random Glucose 135 H (60-115) mg/dL Lactic Acid 6.5 H* (0.5-2.0) mmol/L Lactic Acid F/U @ 2Hr (0.5-2.0) mmol/L Calcium 9.7 (8.4-10.2) mg/dL Magnesium 2.3 (1.6-2.6) mg/dL Total Bilirubin 0.7 (0.0-1.0) mg/dL Direct Bilirubin 0.3 (0.0-0.5) mg/dL AST 47 H (5-37) U/L ALT 43 H (0-40) U/L Alkaline Phosphatase 132 H (39-117) U/L Troponin I High Sens < 2.7 D (<3.5-35.0) ng/L Total Protein 7.8 (6.5-8.0) g/dL Albumin 3.8 (3.5-5.0) g/dL Lipase 21 (8-78) U/L Stool Occult Blood NEGATIVE (NEGATIVE) Blood Type Antibody Screen 12/05/24 12/05/24 Range/Units 18:04 18:20 WBC (4.8-10.8) X10*3/uL RBC (4.60-5.80) X10*6/uL Hgb (14.0-18.0) g/dl Hct (42.0-52.0) % MCV (80.0-98.0) fL MCH (27.0-33.0) pg MCHC (31.0-36.0) g/dl RDW (11.0-16.0) % Plt Count (160-400) X10*3/uL MPV (9.4-12.4) fL Immature Gran % (Auto) Neut % (Auto) Lymph % (Auto) [place] % (Auto) Eos % (Auto) Baso % (Auto) Lymph # (Auto) [place] # (Auto) Eos # (Auto) Baso # (Auto) Abs Immat Gran (auto) Absolute Neuts (auto) Absolute Nucleated RBC (0.0-0.012) X10*3/uL Nucleated RBC % (auto) (0.0-0.2) /100WBC Neutrophils % (Manual) (45-73) % Band Neutrophils % (3-5) % Lymphocytes % (Manual) (20-40) % Monocytes % (Manual) (2-11) % Abs Neuts (Manual) (2.0-8.3) X10*3/uL Lymphocytes # (Manual) (1.2-4.9) X10*3/uL Monocytes # (Manual) (0.1-1.2) X10*3/uL Toxic Granulation Dohle Bodies Platelet Estimate (NORMAL) Plt Morphology Comment RBC Morphology [place] Cells /OIF PT 18.5 H D (10.9-12.4) SEC INR 1.6 H (0.9-1.1) VBG pH (7.32-7.43) VBG pCO2 mmHg VBG pO2 mmHg VBG HCO3 (22-26) mmol/L VBG O2 Saturation % VBG Base Excess mmol/L Sodium (135-145) mmol/L Potassium (3.3-5.1) mmol/L Chloride (96-108) mmol/L Carbon Dioxide (22-29) mmol/L Anion Gap (12-20) BUN (9-16) mg/dL Creatinine (0.5-1.4) mg/dL Estim Creat Clear Calc Estimated GFR Random Glucose (60-115) mg/dL Lactic Acid (0.5-2.0) mmol/L Lactic Acid F/U @ 2Hr 4.3 H* (0.5-2.0) mmol/L Calcium (8.4-10.2) mg/dL Magnesium (1.6-2.6) mg/dL Total Bilirubin (0.0-1.0) mg/dL Direct Bilirubin (0.0-0.5) mg/dL AST (5-37) U/L ALT (0-40) U/L Alkaline Phosphatase (39-117) U/L Troponin I High Sens (<3.5-35.0) ng/L Total Protein (6.5-8.0) g/dL Albumin (3.5-5.0) g/dL Lipase (8-78) U/L Stool Occult Blood (NEGATIVE) Blood Type O Positive Antibody Screen NEGATIVE Medications Administered Discontinued Medications Generic Name Dose Route Start Last Admin Trade Name Freq PRN Reason Stop Dose Admin Hydromorphone HCl 1 mg 12/05/24 15:09 12/05/24 15:56 Hydromorphone Hcl 1 Mg/Ml Syringe IVPUSH 12/05/24 15:10 1 mg ONCE ONE Administration Protocol Hydromorphone HCl 0.5 mg 12/05/24 17:30 12/05/24 17:33 Hydromorphone Hcl 0.5 Mg/0.5 Ml Syringe IVPUSH 12/05/24 17:31 0.5 mg ONCE ONE Administration Protocol Sodium Chloride 1,000 mls @ 999 mls/hr 12/05/24 15:15 12/05/24 16:55 Ns IV 12/05/24 16:15 Infused .Q1H1M [place] Infusion Sodium Chloride 2,586 mls @ 2,586 mls/hr 12/05/24 16:26 12/05/24 16:57 Ns 30 ml/kg infuse over 1 hr (2586 ml) 12/05/24 17:25 2,586 mls/hr IV Administration .Q1H STA Piperacillin Sod/Tazobactam 100 mls @ 200 mls/hr 12/05/24 16:26 12/05/24 17:40 Sod 4.5 gm/ Sodium Chloride IV 12/05/24 16:55 Infused ONCE ONE Infusion Iohexol 100 ml 12/05/24 16:47 12/05/24 16:48 Iohexol 350 Mg/Ml 100 Ml Infus..Btl IV 12/05/24 16:48 85 ml ONCE ONE Administration Ondansetron HCl 4 mg 12/05/24 15:09 12/05/24 15:56 Ondansetron Hcl 4 Mg/2 Ml Vial IVPUSH 12/05/24 15:10 4 mg ONCE ONE Administration Sodium Biphosphate/Sodium Phosphate 133 ml 12/05/24 15:10 12/05/24 15:25 Sodium Phosphate,Barren-Dibasic [address] 12/05/24 15:11 133 ml ONCE ONE Administration Discharge Plan Discharge Clinical Impression: Diverticulitis of colon with perforation, Colon cancer Patient Disposition: Admitted As Inpatient
--- NOTE | 2024-12-05 14:50 | ECG_ITS ---
Test Reason : TACHYCARDIA Blood Pressure : */* mmHG Vent. Rate : 123 BPM Atrial Rate : 123 BPM P-R Int : 120 ms QRS Dur : 74 ms QT Int : 338 ms P-R-T Axes : 11 75 53 degrees QTcB Int : 483 ms Sinus tachycardia Otherwise normal ECG When compared with ECG of 18-Nov-2024 15:13, No significant change was found Referred By: Shelbie Pollock Electronically Signed By: Lico Mcdermott
--- NOTE | 2024-12-05 15:27 | ED_ITS ---
HPI - Abdominal Pain General Chief Complaint: Abdominal Pain Stated Complaint: stage 4 ca abd pain Time Seen by Provider: 12/05/24 15:03 History of Present Illness HPI narrative: Patient is a 54-year-old male with a history of colon cancer he states he has stage IV colon cancer. Currently undergoing chemotherapy last dose of chemo was on Saturday 5 days ago. Presents today with having abdominal pain diffuse over the entire abdomen. No bowel movement for 2 days positive nausea. Has no fever no chills. No diaphoresis. Patient is from home. No history of abdominal surgery. History of diverticulitis. Related Data Previous Rx's ?Medication ?Instructions ?Recorded dexamethasone 4 mg tablet 4 mg PO BID #30 tabs 5 ondansetron 8 mg disintegrating 8 mg PO Q8H PRN Nausea vomiting 11/25/24 tablet #60 tabs Allergies Allergy/AdvReac Type Severity Reaction Status Date / Time No Known Allergies Allergy Verified 12/05/24 14:57 Review of Systems Review of Systems Positive abdominal pain Positive nausea PMFSH Past Medical History Attestation statement: The following information was validated with the patient. Medical History (Updated 12/05/24 @ 18:26 by Bam Collazo MD) Perforated viscus Anemia No pertinent past medical history Surgical History History of liver biopsy Hx of right knee surgery (~2010) Family History Family History Maternal Grandmother Heart attack Social History Social History Household Members: None Housing: Apartment Are you a primary medicare contact specialist to a significant other at home: No Do you presently have visiting nurse or other home services: No Patient Tobacco Use Status: Never used Tobacco Advance Directives: No Advance Directives Information Provided: No service: No Current occupational status: unemployed Current occupation: Right hand dominate Physical Exam ED Vital Signs: Vital Signs - 24 hr 12/05/24 14:45 12/05/24 15:43 12/05/24 16:00 Temperature 97.6 F 98.3 F Pulse Rate 129 H 144 H 130 H Respiratory Rate 22 H 30 H 19 Blood Pressure 123/73 116/66 Pulse Oximetry 96 95 Oxygen Delivery Method Room Air Room Air Room Air 12/05/24 17:05 12/05/24 18:44 Temperature Pulse Rate 120 H 111 H Respiratory Rate 22 H 18 Blood Pressure 104/62 105/68 Pulse Oximetry 93 Oxygen Delivery Method Room Air BMI result Body Mass Index 30.7 Appearance: Alert. Oriented X3. No acute distress. Eyes: Pupils equal, round and reactive to light. ENT: Pharynx normal. Neck: Normal inspection. Neck supple. No lymph nodes noted. No crepitus CVS: Normal heart rate and rhythm. Pulses normal. Normal S1 and S2 Respiratory: No respiratory distress. Breath sounds normal. No Wheezing. No rales Abdomen: Soft and nontender. No rigidity. No distention. good BS x4 Skin: Skin warm and dry. Normal skin color. Normal skin turgor. Extremities: No lower extremity edema. Neurovascular intact to all extremities. No Lacerations. No Rash Neuro: Oriented X 3. No motor deficit. No sensory deficit. Moving all extermities. No slurred speech Medical Decision Making Medical Decision Making [facility] Narrative: 54 years old presents today with having abdominal pain. The abdominal pain is diffuse over the entire abdomen. Patient had an elevated lactate. Cultures obtained. Antibiotics Zosyn was started. Patient CT scan of the abdomen pelvis was done. CT positive for perforation in the sigmoid diverticulitis. Patient has a history of colon cancer with question Mets to the liver. Just undergone chemotherapy 6 days prior. No fever no chills. Diffuse abdominal pain. 30 cc/kilos IV fluid was given. Repeat focal exam for sepsis was done at 6. Patient marginally improving. Blood cultures were obtained antibiotics surgery evaluated patient. Patient's repeat lactate came back at 4.3. Patient being taken to the OR for perforated diverticulitis Differential Diagnosis Differential Diagnoses: The differential diagnosis associated with the presentation includes CT scan of the abdomen pelvis was negative for obstruction positive perforated diverticulitis Admission/Observation Consideration of admission/observation: Escalation of care including admission/observation considered Consult Healthcare Provider Management of the patient was discussed with: Carburetor Expert (Surgery) Radiology's Lab Data [facility] Lab Attestation statement: I reviewed the patient's lab results. 12/05/24 15:46 12/05/24 15:46 Labs: Lab Results 12/05/24 12/05/24 12/05/24 Range/Units 15:34 15:46 15:52 WBC 7.4 (4.8-10.8) X10*3/uL RBC 5.09 D (4.60-5.80) X10*6/uL Hgb 11.6 L D (14.0-18.0) g/dl Hct 38.6 L D (42.0-52.0) % MCV 75.8 L (80.0-98.0) fL MCH 22.8 L (27.0-33.0) pg MCHC 30.1 L (31.0-36.0) g/dl RDW 16.6 H (11.0-16.0) % Plt Count 619 H D (160-400) X10*3/uL MPV 9.3 L (9.4-12.4) fL Immature Gran % (Auto) Cancelled Neut % (Auto) Cancelled Lymph % (Auto) Cancelled [place] % (Auto) Cancelled Eos % (Auto) Cancelled Baso % (Auto) Cancelled Lymph # (Auto) Cancelled [place] # (Auto) Cancelled Eos # (Auto) Cancelled Baso # (Auto) Cancelled Abs Immat Gran (auto) Cancelled Absolute Neuts (auto) Cancelled Absolute Nucleated RBC 0.000 (0.0-0.012) X10*3/uL Nucleated RBC % (auto) 0.0 (0.0-0.2) /100WBC Neutrophils % (Manual) 81 H (45-73) % Band Neutrophils % 8 H (3-5) % Lymphocytes % (Manual) 10 L (20-40) % Monocytes % (Manual) 1 L (2-11) % Abs Neuts (Manual) 6.6 (2.0-8.3) X10*3/uL Lymphocytes # (Manual) 0.7 L (1.2-4.9) X10*3/uL Monocytes # (Manual) 0.1 (0.1-1.2) X10*3/uL Toxic Granulation PRESENT Dohle Bodies PRESENT Platelet Estimate INCREASED (NORMAL) Plt Morphology Comment NORMAL RBC Morphology NOTED [place] Cells 2+ (3-5) /OIF PT (10.9-12.4) SEC INR (0.9-1.1) VBG pH 7.33 (7.32-7.43) VBG pCO2 39 mmHg VBG pO2 36 mmHg VBG HCO3 21 L (22-26) mmol/L VBG O2 Saturation 42.0 % VBG Base Excess -4.5 mmol/L Sodium 137 (135-145) mmol/L Potassium 4.9 (3.3-5.1) mmol/L Chloride 104 (96-108) mmol/L Carbon Dioxide 18 L (22-29) mmol/L Anion Gap 20 (12-20) BUN 16 (9-16) mg/dL Creatinine 0.89 (0.5-1.4) mg/dL Estim Creat Clear Calc 95.3 Estimated GFR > 60 Random Glucose 135 H (60-115) mg/dL Lactic Acid 6.5 H* (0.5-2.0) mmol/L Lactic Acid F/U @ 2Hr (0.5-2.0) mmol/L Calcium 9.7 (8.4-10.2) mg/dL Magnesium 2.3 (1.6-2.6) mg/dL Total Bilirubin 0.7 (0.0-1.0) mg/dL Direct Bilirubin 0.3 (0.0-0.5) mg/dL AST 47 H (5-37) U/L ALT 43 H (0-40) U/L Alkaline Phosphatase 132 H (39-117) U/L Troponin I High Sens < 2.7 D (<3.5-35.0) ng/L Total Protein 7.8 (6.5-8.0) g/dL Albumin 3.8 (3.5-5.0) g/dL Lipase 21 (8-78) U/L Stool Occult Blood NEGATIVE (NEGATIVE) Blood Type Antibody Screen 12/05/24 12/05/24 Range/Units 18:04 18:20 WBC (4.8-10.8) X10*3/uL RBC (4.60-5.80) X10*6/uL Hgb (14.0-18.0) g/dl Hct (42.0-52.0) % MCV (80.0-98.0) fL MCH (27.0-33.0) pg MCHC (31.0-36.0) g/dl RDW (11.0-16.0) % Plt Count (160-400) X10*3/uL MPV (9.4-12.4) fL Immature Gran % (Auto) Neut % (Auto) Lymph % (Auto) [place] % (Auto) Eos % (Auto) Baso % (Auto) Lymph # (Auto) [place] # (Auto) Eos # (Auto) Baso # (Auto) Abs Immat Gran (auto) Absolute Neuts (auto) Absolute Nucleated RBC (0.0-0.012) X10*3/uL Nucleated RBC % (auto) (0.0-0.2) /100WBC Neutrophils % (Manual) (45-73) % Band Neutrophils % (3-5) % Lymphocytes % (Manual) (20-40) % Monocytes % (Manual) (2-11) % Abs Neuts (Manual) (2.0-8.3) X10*3/uL Lymphocytes # (Manual) (1.2-4.9) X10*3/uL Monocytes # (Manual) (0.1-1.2) X10*3/uL Toxic Granulation Dohle Bodies Platelet Estimate (NORMAL) Plt Morphology Comment RBC Morphology [place] Cells /OIF PT 18.5 H D (10.9-12.4) SEC INR 1.6 H (0.9-1.1) VBG pH (7.32-7.43) VBG pCO2 mmHg VBG pO2 mmHg VBG HCO3 (22-26) mmol/L VBG O2 Saturation % VBG Base Excess mmol/L Sodium (135-145) mmol/L Potassium (3.3-5.1) mmol/L Chloride (96-108) mmol/L Carbon Dioxide (22-29) mmol/L Anion Gap (12-20) BUN (9-16) mg/dL Creatinine (0.5-1.4) mg/dL Estim Creat Clear Calc Estimated GFR Random Glucose (60-115) mg/dL Lactic Acid (0.5-2.0) mmol/L Lactic Acid F/U @ 2Hr 4.3 H* (0.5-2.0) mmol/L Calcium (8.4-10.2) mg/dL Magnesium (1.6-2.6) mg/dL Total Bilirubin (0.0-1.0) mg/dL Direct Bilirubin (0.0-0.5) mg/dL AST (5-37) U/L ALT (0-40) U/L Alkaline Phosphatase (39-117) U/L Troponin I High Sens (<3.5-35.0) ng/L Total Protein (6.5-8.0) g/dL Albumin (3.5-5.0) g/dL Lipase (8-78) U/L Stool Occult Blood (NEGATIVE) Blood Type O Positive Antibody Screen NEGATIVE Independent Interpretation I performed an independent interpretation of an: CT Scan (Question diverticular perforation) Radiology Impression Discussion of test interpretation with radiology: I discussed test interpretation with the radiologist and I have reviewed the radiologist's reading. External Record Review External record reviewed: Inpatient record Chronic Conditions Colon cancer with Mets Medications Administered Discontinued Medications Generic Name Dose Route Start Last Admin Trade Name Freq PRN Reason Stop Dose Admin Hydromorphone HCl 1 mg 12/05/24 15:09 12/05/24 15:56 Hydromorphone Hcl 1 Mg/Ml Syringe IVPUSH 12/05/24 15:10 1 mg ONCE ONE Administration Protocol Hydromorphone HCl 0.5 mg 12/05/24 17:30 12/05/24 17:33 Hydromorphone Hcl 0.5 Mg/0.5 Ml Syringe IVPUSH 12/05/24 17:31 0.5 mg ONCE ONE Administration Protocol Sodium Chloride 1,000 mls @ 999 mls/hr 12/05/24 15:15 12/05/24 16:55 Ns IV 12/05/24 16:15 Infused .Q1H1M [place] Infusion Sodium Chloride 2,586 mls @ 2,586 mls/hr 12/05/24 16:26 12/05/24 16:57 Ns 30 ml/kg infuse over 1 hr (2586 ml) 12/05/24 17:25 2,586 mls/hr IV Administration .Q1H STA Piperacillin Sod/Tazobactam 100 mls @ 200 mls/hr 12/05/24 16:26 12/05/24 17:40 Sod 4.5 gm/ Sodium Chloride IV 12/05/24 16:55 Infused ONCE ONE Infusion Iohexol 100 ml 12/05/24 16:47 12/05/24 16:48 Iohexol 350 Mg/Ml 100 Ml Infus..Btl IV 12/05/24 16:48 85 ml ONCE ONE Administration Ondansetron HCl 4 mg 12/05/24 15:09 12/05/24 15:56 Ondansetron Hcl 4 Mg/2 Ml Vial IVPUSH 12/05/24 15:10 4 mg ONCE ONE Administration Sodium Biphosphate/Sodium Phosphate 133 ml 12/05/24 15:10 12/05/24 15:25 Sodium Phosphate,[place]-Dibasic 133 Ml Enema IN 12/05/24 15:11 133 ml ONCE ONE Administration Critical Care Time Critical Care Time Critical Care Time: Yes Total Critical Care Time: 40 Attestation: I have personally provided 40 minutes of critical care time exclusive of time spent on separately billable procedures. ?Time includes review of lab data, radiology results, discussion with consultants, and monitoring for potential decompensation. ?Interventions were performed as documented above Discharge Plan Discharge Clinical Impression: Diverticulitis of colon with perforation, Colon cancer Patient Disposition: Admitted As Inpatient
[2024-12-05 15:43] LABS: OBS Int Ctl Valid YES; OBS1 NEGATIVE (NEGATIVE)
[2024-12-05 15:55] LABS: Venous Blood Gas Refer to POC result
[2024-12-05 15:56] LABS: VBG HCO3 21 mmol/L (22-26); VBG O2 % Saturation 42.0 %
[2024-12-05 15:57] LABS: Hematocrit 38.6 % (42.0-52.0); Hemoglobin 11.6 g/dl (14.0-18.0); Mean Corpuscular HGB Conc 30.1 g/dl (31.0-36.0); Mean Corpuscular Hemoglobin 22.8 pg (27.0-33.0); Mean Corpuscular Volume 75.8 fL (80.0-98.0); NRBC Abs Auto 0.000 X10*3/uL (0.0-0.012); NRBC Pct Auto 0.0 /100WBC (0.0-0.2); Platelet Count 619 X10*3/uL (160-400); Red Blood Count 5.09 X10*6/uL (4.60-5.80); WBC ABN SCTR FOR CBC 1
[2024-12-05 15:58] LABS: White Blood Count 7.4 X10*3/uL (4.8-10.8)
[2024-12-05 16:15] LABS: Troponin-I High Sensitivity < 2.7 ng/L (<3.5-35.0)
[2024-12-05 16:16] LABS: Band Neutrophils Percent 8 % (3-5); Lymphocytes Absolute Manual 0.7 X10*3/uL (1.2-4.9); Lymphocytes Percent Manual 10 % (20-40); Monocytes Absolute Manual 0.1 X10*3/uL (0.1-1.2); Monocytes Percent Manual 1 % (2-11); Neutrophils Absolute Manual 6.6 X10*3/uL (2.0-8.3); Neutrophils Percent Manual 81 % (45-73)
[2024-12-05 16:17] LABS: Burr Cells 2+ (3-5) /OIF; Dohle Bodies PRESENT; RBC Morphology NOTED; Toxic Granulation PRESENT
[2024-12-05 16:25] LABS: Alanine Aminotransferase 43 U/L (0-40); Albumin Level 3.8 g/dL (3.5-5.0); Alkaline Phosphatase 132 U/L (39-117); Anion Gap 20 (12-20); Aspartate Amino Transferase 47 U/L (5-37); Blood Urea Nitrogen 16 mg/dL (9-16); Calcium 9.7 mg/dL (8.4-10.2); Carbon Dioxide 18 mmol/L (22-29); Chloride 104 mmol/L (96-108); Creatinine Clr Calc Pharmacy 95.3; Estimated Glomerular Filt Rate > 60; Lipase 21 U/L (8-78); Magnesium 2.3 mg/dL (1.6-2.6); Potassium 4.9 mmol/L (3.3-5.1); Sodium 137 mmol/L (135-145); Total Protein 7.8 g/dL (6.5-8.0)
[2024-12-05] MEDS: iohexoL 350 MG/ML 100 ML INFUS..BTL IV (16:48)
[2024-12-05] MEDS: 0.9 % Sodium Chloride 2,586 ML 2586 ML IV (16:57)
[2024-12-05 17:50] LABS: Reflex Lactate? Lactic Acid Added
--- NOTE | 2024-12-05 17:56 | PC.NURSE ---
Please keep family updated w/care plan; Aunt Chioma (proxy) @ [phone] and Ashia (cousin) @ [phone]
--- NOTE | 2024-12-05 18:22 | PM.HPGS ---
History of Present Illness History of Present Illness Date of Service: 12/06/24 Chief complaint: stage 4 ca abd pain Narrative: Paras Hughes is a 54 year old male known adenocarcinoma of the sigmoid colon, metastatic to the liver and possible metastatic lesions in the lungs here in the ER for abdominal pain. He says that this started last night around 19:00. He said that this progressively became worse overnight and this morning. He says that the pain is ?severe?. He was admitted for a question of perforated diverticulitis last September,. However workup with imaging studies showed question of a mass in the sigmoid along with metastatic lesions in the liver, lungs and aorto cava and portacaval lymph nodes. He had a CT biopsy of the liver lesions in 10/29/2024 showing adenocarcinoma consistent with metastasis from the colon. He had started on chemotherapy with Dr. Granda and has had 1 cycle so far. Review of Systems Constitutional: Constitutional: Reports chills, Denies fever(s) and Reports weakness Cardiovascular: Cardiovascular: Denies chest pain and Reports dyspnea on exertion Respiratory: Respiratory: Reports dyspnea on exertion Gastrointestinal: Gastrointestinal: Reports abdominal pain and Denies vomiting Genitourinary: Genitourinary: Denies difficulty urinating Musculoskeletal: Musculoskeletal: Reports myalgias Neurologic: Reports weakness PMFSH Past Medical History Medical History Perforated viscus Anemia No pertinent past medical history Family History Family History Maternal Grandmother Heart attack Surgical History Surgical History History of liver biopsy Hx of right knee surgery (~2010) Social History Social History Household Members: Unknown / Unable to assess Housing: Unknown / Unable to assess Are you a primary palliative care coordinator to a significant other at home: No Do you presently have visiting nurse or other home services: No Patient Tobacco Use Status: Never used Tobacco Currently Displaying Signs/Symptoms of Drug Intoxication Withdrawal: No Advance Directives: No Advance Directives Information Provided: No Do you have a plan to hurt others: No Plan Recently lost weight without trying: No Eating poorly because of decreased appetite: No Nutrition Risks: No Nutritional Risk Poor oral hygiene: Yes service: No Current occupational status: unemployed Current occupation: Right hand dominate Meds Allergies Allergy/AdvReac Type Severity Reaction Status Date / Time No Known Allergies Allergy Verified 12/05/24 14:57 Home Medications ?Medication ?Instructions ?Recorded ?Confirmed ?Last Taken ?Type dexamethasone 4 mg tablet 4 mg PO BID PRN x2 days after 12/06/24 12/06/24 Unknown History chemotherapy Physical Exam Vital Signs: Vital Signs: Last Vital Signs Temp 98.3 F 12/05/24 16:00 Pulse 120 H 12/05/24 17:05 Resp 22 H 12/05/24 17:05 BP 104/62 12/05/24 17:05 Pulse Ox 93 12/05/24 17:05 O2 Del Method Room Air 12/05/24 17:05 BMI result Body Mass Index 30.7 Const: Other: In severe pain and discomfort Resp: Other: Appears short of breath Cardio: Rate: tachycardic GI: Other: Markedly tender diffuse we, with guarding, rebound Palpation (GI): Firmness to palpation present (GI), Tenderness to palpation present (GI), Guarding due to palpation present (GI), no hernias and Rebound tenderness present Results Results Labs: Short CBC 12/05/24 Range/Units 15:46 WBC 7.4 (4.8-10.8) X10*3/uL Hgb 11.6 L D (14.0-18.0) g/dl Hct 38.6 L D (42.0-52.0) % Plt Count 619 H D (160-400) X10*3/uL BMP 12/05/24 15:46 Sodium 137 Potassium 4.9 Chloride 104 Carbon Dioxide 18 L BUN 16 Creatinine 0.89 Calcium 9.7 Liver Function 12/05/24 Range/Units 15:46 Total Bilirubin 0.7 (0.0-1.0) mg/dL Direct Bilirubin 0.3 (0.0-0.5) mg/dL AST 47 H (5-37) U/L ALT 43 H (0-40) U/L Alkaline Phosphatase 132 H (39-117) U/L Albumin 3.8 (3.5-5.0) g/dL Abdomen CT scan report/results: report reviewed and image reviewed CT scan - pelvis: report reviewed and image reviewed Additional studies: Comparison: CT/OR/SR - CT ABDOMEN WO IV CON - 10/20/24 13:[address]/OR/SR - CT ABDOMEN PELVIS W IV CON - 10/08/24 09:38 EDT Findings: Scattered right middle and right lower lobe pulmonary nodules, increased in size from prior for example series 3, image 7 measuring 7 mm concerning for progressive pulmonary metastases. Question left lower lobe nodule versus volume averaging series 3, image 1 measuring 1.2 cm. Hepatomegaly with steatosis and nodular contours suggesting possible cirrhosis. Enlarging ill-defined hypoattenuating liver lesions concerning for progressive metastasis, for example in the lateral right lobe measuring 2.9 cm series 6, image 42. Mildly distended gallbladder. Redemonstrated magdalene hepatis adenopathy, for example a lymph node abutting the gallbladder series 6, image 36 measuring 1.4 cm, increased in size from prior. As well, there is enlarging pericaval, retroperitoneal adenopathy. Right-sided hypodense renal cysts. No urolithiasis. Prominent masslike mural thickening of the proximal sigmoid colon in the left lower quadrant with ill-defined borders, pneumatosis and adjacent free air with extensive fluid stranding and inflammatory changes. There is an adjacent ill-defined fluid collection with multiple air bubbles, measuring 11.7 x 8.5 cm on coronal concerning for perforation with pericolonic abscess. Additional soft tissue nodularities noted throughout the adjacent mesentery, for example series 6, image 51 measuring 3.4 cm, increased in size from prior. Several scattered diverticuli. Colitis and/or diverticulitis considered as well. Moderate colonic stool burden. No bowel obstruction. Normal appendix. Scattered foci of pneumoperitoneum. Small volume ascites with peritoneal wall thickening and enhancement suggesting peritonitis. Bladder is decompressed. Osteopenia with diffuse multilevel spondylosis. IMPRESSION: 1. Perforated sigmoid diverticulitis versus colitis secondary to an ill-defined colonic mass. Adjacent large ill-defined fluid collection concerning for pericolonic abscess. Free air, small volume free fluid and peritonitis. Surgical consult advised. 2. Progressive pulmonary, hepatic and lymphomatous metastases. Oncological consult advised. This document has been electronically signed by: Keshav Perales MD on 12/05/2024 17:40:02 Assessment and Plan (1) Perforated viscus: Status: Acute 54-year-old male, with known colon cancer of the sigmoid, metastatic to the liver and the lungs, because of severe abdominal pain. I have reviewed his CAT scan and this shows some bubbles of free air along with pneumatosis of the sigmoid on the area of what appears to be the neoplastic lesion. He has a very large abscess anterior to this segment on the CAT scan. There is note of multiple hepatic lesions. There is suggestion of cirrhosis. He is very tender and has peritoneal signs. I explained to him that have to proceed with a laparotomy, resection of the disease segment and colostomy. I explained to him the technique of this procedure. I reviewed the risks including but not limited to bleeding, infections, stoma complications, bowel injury, injury to other organs, respiratory failure and even . He does have advanced metastatic disease and he may be very critically ill postoperatively. I have discussed the above with his health care proxy Chioma Gallego who is his aunt at [phone]. I also discussed the above with another family member Ashia Galo at [phone]. They both understand that he may be critically ill postoperatively. He is clinically septic. His initial lactate was 6.5. He has received IV fluid resuscitation. The patient and the family are aware that I anticipate him to have a very krishna postop course. Quality Stroke Does the patient have a stroke diagnosis?: No VTE Prior VTE?: No VTE Risk Level:: Medical - moderate - high VTE Device Contraindication: N/A - Device Ordered VTE Drug Contraindication: N/A - Med Ordered Procedures Date of Service Date of Service: 12/06/24
[2024-12-05 18:31] LABS: INTERNATIONAL NORM RATIO 1.6 (0.9-1.1); Prothrombin Time 18.5 SEC (10.9-12.4)
[2024-12-05 18:38] LABS: ~Lactic Acid-LAB USE ONLY 4.3 mmol/L (0.5-2.0)
--- NOTE | 2024-12-05 19:23 | P.CONAN_ITS ---
[facility] Active Problems Active Problems: All Active Problems Perforated viscus (Acute) Diverticulitis of colon with perforation (Acute) Colon cancer (Acute) Anemia (Acute) Colonic mass (Acute) Acute diverticulitis (Acute) Rotator cuff tear, right (Acute) Right shoulder pain (Acute) Past Medical History Medical History Perforated viscus Anemia No pertinent past medical history Functional capacity: independent ambulation Family History Family History Maternal Grandmother Heart attack Family history of problems with anesthesia: No Surgical History Surgical History History of liver biopsy Hx of right knee surgery (~2010) History of Problems with Anesthesia: No Social History Social History Household Members: None Housing: Apartment Are you a primary gericare aide to a significant other at home: No Do you presently have visiting nurse or other home services: No Patient Tobacco Use Status: Never used Tobacco Advance Directives: No Advance Directives Information Provided: No service: No Current occupational status: unemployed Current occupation: Right hand dominate Meds Allergies Allergy/AdvReac Type Severity Reaction Status Date / Time No Known Allergies Allergy Verified 12/05/24 14:57 Active Medications: Current Medications Acetaminophen (Acetaminophen 325 Mg Tablet) 650 mg PO Q6H PRN PRN Reason: Pain, Mild 1-3,fever,headache Calcium Carbonate (Calcium Carbonate 750 Mg Tab.Chew) 750 mg PO Q4H PRN PRN Reason: Heartburn Heparin Sodium (Porcine) (Heparin Sodium,Porcine 5,000 Unit/Ml Vial) 5,000 unit SUBCUT Q8H [place] Lactated Ringer's (Lr) 1,000 mls @ 125 mls/hr IVCONT .Q8H [place] Piperacillin Sod/Tazobactam (Sod 3.375 gm/ Sodium Chloride) 50 mls @ 100 mls/hr IV Q6H [place] Magnesium Hydroxide (Milk Of Magnesia 30 Ml Oral.Susp) 30 ml PO DAILY PRN PRN Reason: Constipation Melatonin (Melatonin 3 Mg Tablet) 6 mg PO BEDTIME PRN PRN Reason: Insomnia Sodium Chloride (0.9 % Sodium Chloride Flush 3 Ml Syringe) 3 ml IVFLUSH QSHIFT [place] Exam Height,Weight and Vital Signs: Height 5 ft 6 in Weight 86.2 kg Last Vital Signs Temp 98.3 F 12/05/24 16:00 Pulse 111 H 12/05/24 18:44 Resp 18 12/05/24 18:44 BP 105/68 12/05/24 18:44 Pulse Ox 93 12/05/24 17:05 O2 Del Method Room Air 12/05/24 17:05 Pertinent Lab Results Pertinent Lab Results: Laboratory Tests 12/05/24 12/05/24 12/05/24 15:34 15:46 15:52 WBC 7.4 RBC 5.09 D Hgb 11.6 L D Hct 38.6 L D MCV 75.8 L MCH 22.8 L MCHC 30.1 L RDW 16.6 H Plt Count 619 H D MPV 9.3 L Immature Gran % (Auto) Cancelled Neut % (Auto) Cancelled Lymph % (Auto) Cancelled [place] % (Auto) Cancelled Eos % (Auto) Cancelled Baso % (Auto) Cancelled Lymph # (Auto) Cancelled [place] # (Auto) Cancelled Eos # (Auto) Cancelled Baso # (Auto) Cancelled Abs Immat Gran (auto) Cancelled Absolute Neuts (auto) Cancelled Absolute Nucleated RBC 0.000 Nucleated RBC % (auto) 0.0 Neutrophils % (Manual) 81 H Band Neutrophils % 8 H Lymphocytes % (Manual) 10 L Monocytes % (Manual) 1 L Abs Neuts (Manual) 6.6 Lymphocytes # (Manual) 0.7 L Monocytes # (Manual) 0.1 Toxic Granulation PRESENT Dohle Bodies PRESENT Platelet Estimate INCREASED Plt Morphology Comment NORMAL RBC Morphology NOTED [place] Cells 2+ (3-5) PT INR VBG pH 7.33 VBG pCO2 39 VBG pO2 36 VBG HCO3 21 L VBG O2 Saturation 42.0 VBG Base Excess -4.5 Sodium 137 Potassium 4.9 Chloride 104 Carbon Dioxide 18 L Anion Gap 20 BUN 16 Creatinine 0.89 Estim Creat Clear Calc 95.3 Estimated GFR > 60 Random Glucose 135 H Lactic Acid 6.5 H* Lactic Acid F/U @ 2Hr Calcium 9.7 Magnesium 2.3 Total Bilirubin 0.7 Direct Bilirubin 0.3 AST 47 H ALT 43 H Alkaline Phosphatase 132 H Troponin I High Sens < 2.7 D Total Protein 7.8 Albumin 3.8 Lipase 21 Stool Occult Blood NEGATIVE Blood Type Antibody Screen 12/05/24 12/05/24 18:04 18:20 WBC RBC Hgb Hct MCV MCH MCHC RDW Plt Count MPV Immature Gran % (Auto) Neut % (Auto) Lymph % (Auto) [place] % (Auto) Eos % (Auto) Baso % (Auto) Lymph # (Auto) [place] # (Auto) Eos # (Auto) Baso # (Auto) Abs Immat Gran (auto) Absolute Neuts (auto) Absolute Nucleated RBC Nucleated RBC % (auto) Neutrophils % (Manual) Band Neutrophils % Lymphocytes % (Manual) Monocytes % (Manual) Abs Neuts (Manual) Lymphocytes # (Manual) Monocytes # (Manual) Toxic Granulation Dohle Bodies Platelet Estimate Plt Morphology Comment RBC Morphology [place] Cells PT 18.5 H D INR 1.6 H VBG pH VBG pCO2 VBG pO2 VBG HCO3 VBG O2 Saturation VBG Base Excess Sodium Potassium Chloride Carbon Dioxide Anion Gap BUN Creatinine Estim Creat Clear Calc Estimated GFR Random Glucose Lactic Acid Lactic Acid F/U @ 2Hr 4.3 H* Calcium Magnesium Total Bilirubin Direct Bilirubin AST ALT Alkaline Phosphatase Troponin I High Sens Total Protein Albumin Lipase Stool Occult Blood Blood Type O Positive Antibody Screen NEGATIVE Airway Mallampati Class: III TM Dist: >3cm Neck ROM: Full Heart: tachycardic Lungs: CTA Assessment and Plan Assessment Anesthesia Assessment: Anesthesia Plan Discussed and Chart Reviewed Final Anesthetic Review Family History of Problems with Anesthesia: No History of Problems with Anesthesia: No Final Preanesthetic Review: Meds/Allgs Chart Reviewed, Consent Obtained/Reviewed and Anes Risks/Benef Reviewed Patient Risk: High Procedure Risk: Intermediate Anesthetic Plan Anesthetic Plan: GA Disposition: Standard PACU
[2024-12-05 20:20] LABS: Reflex Lactate? 2 Y
--- NOTE | 2024-12-05 22:10 | W.PM.OPN ---
Operative Note Operative Note Date of Service: 12/05/24 Narrative: Preop diagnosis: Perforated sigmoid cancer , with peritonitis Postop diagnosis: Perforated sigmoid cancer, with fecal peritonitis throughout the entire peritoneal cavity Procedure: Laparotomy, extensive lysis of adhesions, sigmoid resection, end- loop transverse colostomy, intra-abdominal lavage, drain placement x2 Surgeon: Bam Collazo MD The patient is a 54-year-old male with a recent diagnosis of metastatic sigmoid cancer with known lesions in the liver as well as in the lungs and intra-abdominal and retroperitoneal lymphadenopathy He had undergone his 1st chemotherapy treatment 5 days ago. He started to have severe abdominal pain yesterday. He was brought to the ER today and this showed free intraperitoneal air likely coming from a perforated large sigmoid tumor. He was severely really tender with peritoneal signs. He is tachycardic and had elevated lactate. He understood the the need for laparotomy, in view of his intraperitoneal sepsis. He was aware of the risks, benefits, and alternatives. His family was involved with the discussion He was brought to the operating room. He was placed supine under general anesthesia via endotracheal tube. A Sanchez catheter was inserted. The abdomen was prepped and draped in the usual sterile fashion. A surgical time-out was done. The patient was receiving scheduled IV Zosyn A midline incision was made on the skin starting from just above the umbilicus towards the her abdomen with a blade 15. This carried down through the full-thickness of the subcutaneous fat down to the fascia. The fascia was incised. The peritoneum was entered. Immediately, large amounts of feculent peritoneal fluid was seen. I proceeded to apply the Bookwalter retractors. We had to do extensive lysis of adhesions because of markedly adherent omentum down to the pelvis. We used the LigaSure to free up the omentum from the pelvis to be able to retracted away from the left lower quadrant. We were then able to utilize what appeared to be very large abscess cavity adjacent to a large more in the sigmoid. This tumor along with the abscess cavity was stuck to the sidewall. The entire mesentery was very indurated and extremely foreshortened. The entire sigmoid was also very adherent to the this and there were no obvious planes around this at this point. There was note of large amounts of stool scattered throughout the entire peritoneal cavity. Visualization of the viscus was difficult in view of this large amounts of stool but eventually were able to suctioned this out and reflect the bowel loops away from the left side. At this point, we applied the Bookwalter retractors in place for retraction of the bowel loops. I was able to feel for the transition in the proximal l sigmoid at the left colon area where the tumor seemed to end. I could also clearly see the perforated area of the sigmoid where the tumor was also located. Large amounts of stool were freely draining through this perforation.. Furthermore, there was note of fecal material scattered throughout all quadrants of the Peritoneal cavity. There was a long segment of very indurated sigmoid which appeared to be consistent this large tumor along with the adjacent abscess cavity. In the absence of planes, we would extreme difficulty with dissecting this until we are able to feel for the transition in the distal sigmoid. I continued to carefully do extensive dissection using the LigaSure and the electrocautery to mobilize the sigmoid from the sidewall. The tumor was extending past the wall of the colon and involving the sidewall so we had to go through severe indurated tissue to be able to mobilize the sigmoid. It was possible to say whether we were going through neoplastic tissue or indurated and inflamed tissue. This part of the procedure took an extended period of time time in view of the very bulky tumor which was markedly adherent through the sidewall in the mesentery without any planes Eventually, as able to feel for the transition distally and I was able to divide this with the GRACIE 60 mm stapler. I also divided the excision point proximally in the left colon with a GRACIE 60 mm stapler. By carefully following this divided segments, I proceeded to separate the tumor from the sidewall. I divided the attached mesentery serially in cm by cm fashion using the LigaSure and electrocautery until was able to resect this entire diseased segment. The planes were obviously positive for tumor as the cancer extended all the way to the sidewall mesentery. Furthermore, most of the tumor was friable and the colon involved with this was falling apart as well. This resected segment was sent as specimen. In view of the severe foreshortening of the left colon mesentery, it was impossible to be able to bring this out as an end colostomy I therefore proceeded to mobilize the transverse colon. I divided the omentum from the transverse colon. I then proceeded to choose the transverse colon as an end loop colostomy. I created a mesenteric window. I has a Joy drain around this. I created the stoma opening in the left upper quadrant by excising a discoid piece of skin and dividing through thick amount of subcutaneous fat, anterior sheath and muscle-splitting through the posterior sheath. I pulled the Joy drain through this opening has the level of the skin. I replaced the [place] drain with a stoma bridge. I then proceeded to copiously irrigate. We used more than 5 L of irrigation fluid in view of the large amounts of stool within the peritoneal cavity. I also used Irrisept at the end. I then positioned 1 drain on each side of the gutter and these were brought out through a separate exit sites in the left lower quadrant and right lower quadrant. Both of these 10. LEÓN drains were secured to the skin with nylon 3-0 anchoring sutures We examined for hemostasis. There were no evidence of any bowel injury Once hemostasis was confirmed, I then proceeded to close the fascia with a running Maxon 1 stitch. The skin was loosely closed with skin jose luis and packing was placed in the subcutaneous layer in between the jose luis The end-loop colostomy was matured by opening the anterior wall transversely. I secured the wall of the colostomy to the subdermal layer with a circumferential row of Polysorb 3-0 sutures. At the end, I probed both efferent and afferent limbs with a finger and this appeared patent past the fascial level. The stoma appliance was positioned. Dressings were applied. The procedure was completed The patient tolerated procedure well. There were no immediate complications Initial and final counts of sponges and instruments were correct. Estimated blood loss was about 100 cc The patient was extubated without difficulty and transferred to the intensive care unit. The case was discussed with the executive director global brand marketing.
--- NOTE | 2024-12-05 22:39 | PM.EVENT ---
Event Note Date of Service: 12/06/24 Event Note: Patient currently in ICU Currently intubated Hemodynamically stable Had fecal peritonitis - large amounts of stool spillage in the abdominal cavity Large tumor with abscess and perforation in the sigmoid Sigmoid resected - tumor extending beyond the colon and involving the sidewall and mesentery Left colon extremely foreshortened indurated so unable to be mobilized to reach the abdominal wall end- loop colostomy from the transverse colon therefore done Anticipate the patient to be critically ill in view of intra-abdominal sepsis Also needs volume resuscitation - urine output adequate but still dark Pain management Discussed with ICU staff Family updated - healthcare proxy Chioma and nessa Ang Time Spent With Patient Time: Total time managing care of this patient today ____ minutes.
[2024-12-05 23:00] LABS: Hematocrit 38.9 % (42.0-52.0); Hemoglobin 11.5 g/dl (14.0-18.0); Mean Corpuscular HGB Conc 29.6 g/dl (31.0-36.0); Mean Corpuscular Hemoglobin 23.0 pg (27.0-33.0); Mean Corpuscular Volume 77.6 fL (80.0-98.0); NRBC Abs Auto 0.000 X10*3/uL (0.0-0.012); NRBC Pct Auto 0.0 /100WBC (0.0-0.2); Platelet Count 449 X10*3/uL (160-400); Red Blood Count 5.01 X10*6/uL (4.60-5.80); WBC ABN SCTR FOR CBC 1
[2024-12-05 23:03] LABS: White Blood Count 3.2 X10*3/uL (4.8-10.8)
[2024-12-05 23:06] LABS: VBG HCO3 17 mmol/L (22-26); VBG O2 % Saturation 50.0 %
[2024-12-05 23:11] LABS: Venous Blood Gas Refer to POC result
[2024-12-05] MEDS: 0.9 % Sodium Chloride Flush 3 ML SYRINGE IVFLUSH (23:11)
[2024-12-05 23:25] LABS: Alanine Aminotransferase 22 U/L (0-40); Albumin Level 2.6 g/dL (3.5-5.0); Alkaline Phosphatase 69 U/L (39-117); Anion Gap 14 (12-20); Aspartate Amino Transferase 26 U/L (5-37); Blood Urea Nitrogen 17 mg/dL (9-16); Calcium 7.8 mg/dL (8.4-10.2); Carbon Dioxide 19 mmol/L (22-29); Chloride 111 mmol/L (96-108); Creatinine Clr Calc Pharmacy 81.6; Estimated Glomerular Filt Rate > 60; Magnesium 2.0 mg/dL (1.6-2.6); Potassium 4.4 mmol/L (3.3-5.1); Sodium 140 mmol/L (135-145); Total Protein 5.2 g/dL (6.5-8.0); ~Lactic Acid-LAB USE ONLY 5.2 mmol/L (0.5-2.0)
[2024-12-05 23:29] LABS: Band Neutrophils Percent 39 % (3-5); Lymphocytes Absolute Manual 0.1 X10*3/uL (1.2-4.9); Lymphocytes Percent Manual 4 % (20-40); Monocytes Absolute Manual 0.1 X10*3/uL (0.1-1.2); Monocytes Percent Manual 2 % (2-11); Neutrophils Absolute Manual 3.0 X10*3/uL (2.0-8.3); Neutrophils Percent Manual 55 % (45-73)
[2024-12-05 23:31] LABS: Microcytosis 1+ (5-14) /OIF; RBC Morphology NOTED
[2024-12-05 23:32] LABS: Burr Cells 3+ (>5) /OIF; Dohle Bodies PRESENT
[2024-12-05 23:33] LABS: Toxic Vacuolation PRESENT
[2024-12-05] MEDS: Sodium Bicarbonate 8.4% 150 MEQ in Dextrose 5 % 850 ML 100 MEQ IV (23:52)
--- NOTE | 2024-12-05 23:58 | P.PNCC_ITS ---
Critical Care Event Note Summary Date of Service: 12/05/24 Code activated: No Narrative: This case had a high probability of a clinically significant, sudden, or life threatening deterioration of this patient's condition which required my full and direct attention, intervention and personal management. Critical Care Time (minutes): 60 Comment: Clinical presedent: ?The patient who is a 54-year-old male with underlying history of colon cancer for which he has received single chemotherapy treatment 5 days ago; presents to the ICU postop day 0. status post laparotomy with ext ensive lysis of adhesion, sigmoid resection, right hand loop transverse colostomy, intra-abdominal lavage and drain placement x2 due to perforated metastatic sigmoid cancer with fecal peritonitis throughout the entire peritoneal cavity.? Procedure performed by Dr. Collazo under general anesthesia without reported complications.? Estimated blood loss 100 cc. ?Preoperative fluids 3.5 L; the patient had 1 episode of hypotension in the ER, the patient had remained hemodynamically stable after IV fluids and during the surgery during which 2.5 L of additional LR had been given. Due to the degree of his cancer, peritonitis and fecal contamination was extensive raising concerns for significant hemodynamic decline.? The patient remains intubated. Pre-op CT abdomen and pelvis IMPRESSION 1. Perforated sigmoid diverticulitis versus colitis secondary to an ill-defined colonic mass. Adjacent large ill-defined fluid collection concerning for pericolonic abscess. Free air, small volume free fluid and peritonitis. Surgical consult advised. 2. Progressive pulmonary, hepatic and lymphomatous metastases. Oncological consult advised. ROS:? Unable to obtain Sepsis exam done at 2215 127/80, 120, 16, 92%. On a ventilator with AC, 400, 16, 5, 30% General:? Sedated, intubated. OG tube in place with minimal bile material. Skin:? Right chest PermCath with clean, dry, intact surroundings.? Large mid abdominal surgical incision covered with dressing, [address].? Right- sided and colostomy.? The remainder of the skin is intact, no lesions, edema, erythema, clubbing or cyanosis.? No ulcers. HEENT:? Head is normocephalic, atraumatic, pupils equal. Buccal mucosa is dry. Neck is supple without lymphadenopathy. Cardiac:? Tachycardic 120 beats per minute.? No murmurs, rubs, gallops. ? Pulmonary:? Clear lungs bilaterally .? No crackles, rales or rhonchi. Abdomen:?Surgical abdomen as above, no BS. ? Musculoskeletal:? Passive range of motion of upper and lower extremities at the major joints showed no cogwheeling, no crepitus.? There is no leg edema and there is no asymmetry. Neurologic:? As above.? No focal deficits noted. Vascular:? 2+ pulses upper and lower extremities distally.? Less than 2nd capillary refill of fingers and toes bilaterally upper and lower extremities POST OP LABS: ?White blood cells 3.2, hemoglobin 11.5, hematocrit 38.9, platelets 449, 39% bands (from 8%) toxic granulocytes and toxic vacuolation. ?Venous blood gas pH 7.17, pCO2 45, HC03 17.? Sodium 140, potassium 4.4, chloride 111, carbon dioxide 19, anion gap 14, BUN 17, creatinine 1.04, lactic acid 5.2, calcium 7.8, phosphorus 6.7, magnesium 2.0.? Albumin 2.6.? LFTs within normal limits.? Stool guaiac negative. ASSESSMENT : 1. POD # 0. status post laparotomy with extensive lysis of adhesion, sigmoid resection, right hand loop transverse colostomy, intra-abdominal lavage and drain placement x2 2. Acute peritonitis secondary to perforated metastatic sigmoid cancer 3. Acute sepsis due to the above 4. Acute lactic and metabolic acidosis due to above 5. Metastatic sigmoid cancer 6. Hyperphosphatemia 7. Pseudo hypocalcemia with corrected calcium level of 8.9 8. Hypoalbuminemia PLAN OF CARE: The patient is transferred to the ICU for further care, monitor vital signs and I's and O's.? Patient has received a total of 6 L of IV fluid thus far.? His urine still very concentrated, we will continue with IV hydration, postop laboratories were reviewed in detail, he is acidotic, we will start him on a bicarb drip.? Propofol sedation and if needed Levophed.? We will also continue with Zosyn which has Gram-negative and anaerobic coverage, we will add antifungal coverage with Diflucan. ?His ANC is 3008, which is borderline neutropenia. Nevertheless the patient is a cancer the patient is significantly ill, precautions will be taken. Oncology consult will be ideal in the next couple of days to obtain an opinion the patient is a future prognosis given his diffuse metastatic cancer. ?Correct electrolyte imbalance as needed.? Transfusion threshold hemoglobin less than 7 g per dL. ?Insulin sliding scale q.6 hours p.r.n. If the patient becomes hypotensive and we need to start pressors a central line will be placed in the left IJ area. F/up focused exam done at 0415 on 12/06/2024 and clinical update 113/67 on Levophed, 85, 16, 97%. On a ventilator with AC, 400, 16, 5, 30% General:? Sedated, intubated. OG tube in place with minimal bile material. Cardiac: Clear S1 S2, No murmurs, rubs, gallops. ? Pulmonary:? Clear lungs. No crackles, rales or rhonchi. Abdomen:?Surgical abdomen as above, no BS. ?No changes LEÓN drains x 2 in site with about 600cc of total output until now. Neurologic:? As above.? No focal deficits noted. Vascular:?2+ pulses upper and lower extremities distally.? Less than 2nd capillary refill of fingers and toes bilaterally upper and lower extremities At about 230 in the morning the patient became hypotensive, Levophed was star timur, he was also given albumin. Since then he has remained hemodynamically stable. Exam as above. A central line in the left IJ was attempted but not possible as his vessels were too small. A left femoral vein central line was placed successfully. Please see details for procedure on a separate note. Continue with the above-mentioned plan of care. The patient is being covered with Zosyn, 1 of 2 cultures were reported positive with Gram-negative organisms. GI PROPHYLAXIS:? IV PPI DVT PROPHYLAXIS:? Heparin subQ q.8 hours and pneumatic stockings. Critical care time used for critical evaluation of this patient, diagnosis, treatment and coordination of care, review her records and documentation TOTAL CRITICAL CARE TIME? 90? MIN . discussion and coordination with consultants, completely separate from any procedures performed. Patient's care was discussed in detail with Dr. Alejandro who is aware of all the above as well as the plan of care for this patient.
[2024-12-05 23:59] LABS: Glucose, Whole Blood 123 mg/dL (60-115)
[2024-12-06] VITALS (46 sets, daily range): BP systolic 85–137; BP diastolic 48–81; PULSE 69–123; RESP 12–19; TEMP 32–37.5; O2SAT 92–98
[2024-12-06] MEDS: Albumin Human 25 % 100 ML 133.33 ML IV ×6 (01:30→22:11)
--- NOTE | 2024-12-06 04:26 | W.PM.CCHP ---
Procedures Date of Service Date of Service: 12/06/24 Central Line Placement Left Femoral: Central Line Comments: Initially left IJ placement was attempted but due to very small narrow vessels it was not possible after 3 needle attempts therefore I withdrew and assess the left femoral area with very distinctive anatomy and easy accessibility. The procedure was performed due to emergent need as the patient suddenly became hypotensive and needed vasopressors , therefore no consent was obtained. Consent for Procedure: Emergent-no informed consent obtained Time out performed: Yes (Verified patient's name and the procedure to be performed with a nurse) Sterile Technique Used: Yes Patient placed on monitor/pulse ox: Yes prep: mask, gown, gloves and other (Cap) Central line prep: Chlorhexidine scrub (X2) Ultrasound used for placement: Yes Central line lumen inserted: triple (20 cm) Post procedure: sutured in place, good blood return, all ports aspirated, flushed, capped and sterile dressing applied Post procedure x-ray: tip of catheter in good position Patient tolerated procedure: well Complications: none
[2024-12-06 04:39] LABS: VBG HCO3 19 mmol/L (22-26); VBG O2 % Saturation 80.0 %
[2024-12-06 04:53] LABS: Hematocrit 29.1 % (42.0-52.0); Hemoglobin 8.8 g/dl (14.0-18.0); Mean Corpuscular HGB Conc 30.2 g/dl (31.0-36.0); Mean Corpuscular Hemoglobin 23.0 pg (27.0-33.0); Mean Corpuscular Volume 76.2 fL (80.0-98.0); NRBC Abs Auto 0.000 X10*3/uL (0.0-0.012); NRBC Pct Auto 0.0 /100WBC (0.0-0.2); Platelet Count 404 X10*3/uL (160-400); Red Blood Count 3.82 X10*6/uL (4.60-5.80); WBC ABN SCTR FOR CBC 1
[2024-12-06 04:55] LABS: Venous Blood Gas Refer to POC result; White Blood Count 7.3 X10*3/uL (4.8-10.8)
[2024-12-06 05:07] LABS: Alanine Aminotransferase 12 U/L (0-40); Albumin Level 3.0 g/dL (3.5-5.0); Alkaline Phosphatase 49 U/L (39-117); Anion Gap 17 (12-20); Aspartate Amino Transferase 17 U/L (5-37); Blood Urea Nitrogen 19 mg/dL (9-16); Calcium 7.9 mg/dL (8.4-10.2); Carbon Dioxide 18 mmol/L (22-29); Chloride 108 mmol/L (96-108); Creatinine Clr Calc Pharmacy 86.0; Estimated Glomerular Filt Rate > 60; Magnesium 1.9 mg/dL (1.6-2.6); Potassium 4.4 mmol/L (3.3-5.1); Sodium 139 mmol/L (135-145); Total Protein 5.0 g/dL (6.5-8.0)
[2024-12-06 05:14] LABS: Band Neutrophils Percent 56 % (3-5); Lymphocytes Absolute Manual 0.1 X10*3/uL (1.2-4.9); Lymphocytes Percent Manual 2 % (20-40); Metamyelocytes Absolute 0.2 X10*3/uL; Metamyelocytes Percent 3 %; Microcytosis 1+ (5-14) /OIF; Monocytes Absolute Manual 0.1 X10*3/uL (0.1-1.2); Monocytes Percent Manual 2 % (2-11); Neutrophils Absolute Manual 6.8 X10*3/uL (2.0-8.3); Neutrophils Percent Manual 37 % (45-73); RBC Morphology NOTED
[2024-12-06 05:15] LABS: Burr Cells 2+ (3-5) /OIF; Hypochromasia 1+ (5-14) /OIF; Toxic Vacuolation PRESENT
[2024-12-06] MEDS: Sodium Bicarbonate 8.4% 150 MEQ in Dextrose 5 % 850 ML IV (06:33)
--- NOTE | 2024-12-06 06:40 | PC.NURSE ---
Patient arrived to ICU from OR at approx 2215. Upon arrival, patient intubated and sedate, only LR gtt running.Propofol gtt started per AUG. RASS -1 to -3. ST on tele, HR 110s-130s, PA aware. Patient with 7.5 ETT. 21 cm?@ lip, see vent assessment. Abdomen large and round, several surgical sites with dressings intact. Small amount of staining marked with sharpie. Two LEÓN drains to lower right and left abdomen, draining notable amount of serosanguineous?fluid, see I&O flowsheet. NGT to left nare secured and connected to low intermittent wall suction?per DUTCH Howe. Small amount of light green gastric contents. New ostomy site to upper right quadrant, stoma beefy red and moist. No stool appreciable in ostomy bag, slight serosanguinous?output. Sanchez catheter?in palace, draining clear concentrated urine. UOP approx 40mL/hr, PA aware. Blanchable redness to buttocks, pink foam applied and turned Q2HR to offload pressure.? At approx 0230, patient's BPs becoming soft. levophed gtt started per DUTCH Howe and patient prepped for TLC insertion. TLC placed to left groin emergently placed without issue, placement verified by Xray. Hannah aware of all critical labs and values. Bed locked in lowest position, bed alarm on, report given to oncoming RN.
[2024-12-06] MEDS: 0.9 % Sodium Chloride Flush 3 ML SYRINGE IVFLUSH ×2 (07:34→16:32)
[2024-12-06 09:13] LABS: Hematocrit 27.0 % (42.0-52.0); Hemoglobin 8.0 g/dl (14.0-18.0); Mean Corpuscular HGB Conc 29.6 g/dl (31.0-36.0); Mean Corpuscular Hemoglobin 22.8 pg (27.0-33.0); Mean Corpuscular Volume 76.9 fL (80.0-98.0); NRBC Abs Auto 0.000 X10*3/uL (0.0-0.012); NRBC Pct Auto 0.0 /100WBC (0.0-0.2); Platelet Count 334 X10*3/uL (160-400); Red Blood Count 3.51 X10*6/uL (4.60-5.80)
[2024-12-06 09:15] LABS: WBC ABN SCTR FOR CBC 1
[2024-12-06 09:27] LABS: Alanine Aminotransferase 12 U/L (0-40); Albumin Level 3.5 g/dL (3.5-5.0); Alkaline Phosphatase 42 U/L (39-117); Anion Gap 16 (12-20); Aspartate Amino Transferase 24 U/L (5-37); Blood Urea Nitrogen 17 mg/dL (9-16); Calcium 7.7 mg/dL (8.4-10.2); Carbon Dioxide 24 mmol/L (22-29); Chloride 104 mmol/L (96-108); Creatinine Clr Calc Pharmacy 86.0; Estimated Glomerular Filt Rate > 60; Potassium 4.2 mmol/L (3.3-5.1); Sodium 140 mmol/L (135-145); Total Protein 5.4 g/dL (6.5-8.0)
--- NOTE | 2024-12-06 09:27 | PHA.MEDREC ---
Addendum entered by Arias Browning RPh 12/06/24 09:28: Reviewed Original Note: Pharmacy Consult ? Medication Reconciliation Pharmacy has completed the medication reconciliation. Used claims to confirm medications.
[2024-12-06 09:39] LABS: Atypical Lymphs Percent Manual 2 % (0-6); Band Neutrophils Percent 36 % (3-5); Lymphocytes Percent Manual 8 % (20-40); Monocytes Percent Manual 3 % (2-11); Neutrophils Percent Manual 51 % (45-73)
[2024-12-06 09:43] LABS: Burr Cells 3+ (>5) /OIF; Microcytosis 1+ (5-14) /OIF; Ovalocytes 1+ (5-14) /OIF; RBC Morphology NOTED; Toxic Vacuolation PRESENT
[2024-12-06 09:44] LABS: Atypical Lymph Absolute Manual 0.2 x10*3/uL; Lymphocytes Absolute Manual 0.7 X10*3/uL (1.2-4.9); Monocytes Absolute Manual 0.3 X10*3/uL (0.1-1.2); Neutrophils Absolute Manual 7.7 X10*3/uL (2.0-8.3); White Blood Count 8.8 X10*3/uL (4.8-10.8)
--- NOTE | 2024-12-06 10:59 | HO.POSTANES ---
Post Anesthesia Evaluation Post Anesthesia Evaluation Date of Service: 12/06/24 Vital Signs: Vital Signs Temp Pulse Resp BP Pulse Ox O2 Del Method FiO2 12/06/24 10:32 72 128/71 12/06/24 10:00 98.2 F 69 18 137/81 98 Mechanical Ventilation 30 12/06/24 09:21 69 132/76 12/06/24 09:00 98.4 F 78 15 131/66 98 Mechanical Ventilation 30 12/06/24 08:29 30 12/06/24 08:00 98.4 F 74 18 122/71 98 Mechanical Ventilation 30 12/06/24 07:44 74 137/80 12/06/24 07:22 97 30 12/06/24 07:00 98.2 F 69 18 117/69 97 Mechanical Ventilation 12/06/24 06:47 72 118/70 12/06/24 06:47 72 118/70 12/06/24 06:00 98.4 F 78 12 119/77 97 Mechanical Ventilation 12/06/24 05:00 98.4 F 80 19 111/66 97 Mechanical Ventilation 12/06/24 04:44 30 12/06/24 04:00 97 30 12/06/24 04:00 98.4 F 85 12 106/62 96 Mechanical Ventilation 12/06/24 03:00 98.6 F 86 13 113/73 97 Mechanical Ventilation 12/06/24 02:56 87 103/67 12/06/24 02:34 105 H 91/64 12/06/24 02:29 113 H 85/61 L 12/06/24 02:00 99.3 F 116 H 16 101/71 94 Mechanical Ventilation 12/06/24 01:00 99.5 F 118 H 16 109/73 92 Mechanical Ventilation 30 12/06/24 00:00 99.3 F 123 H 16 127/80 92 Mechanical Ventilation 30 12/06/24 00:00 92 30 12/05/24 23:18 100 12/05/24 23:00 122 H 16 122/80 94 Mechanical Ventilation 40 Anesthesia: General Endotracheal-GETA Mental Status: Sedated Pain Control: Satisfactory Nausea/Vomiting: None Hydration: Adequate Anesthesia-Related Issues: No Anes. Related Issues Comments: pt. is stable, still intubated, sedated
--- NOTE | 2024-12-06 11:01 | P.HPCC_ITS ---
History of Present Illness Date of Service: 12/06/24 Chief Complaint: abdominal pain 54-year-old gentleman with PMH of stage IV colon cancer undergoing chemotherapy last dose of chemo was on Saturday 5 days ago. He presented to the ED with diffuse abdominal pain along with constipation and nausea. No history of abdominal surgery. History of diverticulitis. He underwent CT abdomen and pelvis which showed perforated sigmoid diverticulitis secondary to an ill- defined colonic mass with adjacent fluid collection concerning for pericolonic abscess. He was emergently taken to the OR by Dr. Collazo and underwent exploratory laparotomy with extensive lysis of addition, sigmoid resection and loop transverse colostomy with abdominal lavage and 2 drains placed. Fecal peritonitis with noted in entire peritoneal cavity. He is critically ill on ventilator support and vasopressor support and is transferred to medical ICU for further care. Review of Systems 2 Review of Systems: Unable to obtain as patient is intubated PMFSH Past Medical History Medical History Perforated viscus Anemia No pertinent past medical history Family History Family History Maternal Grandmother Heart attack Surgical History Surgical History History of liver biopsy Hx of right knee surgery (~2010) Social History Social History Household Members: Unknown / Unable to assess Housing: Unknown / Unable to assess Are you a primary personal carer to a significant other at home: No Do you presently have visiting nurse or other home services: No Patient Tobacco Use Status: Never used Tobacco Currently Displaying Signs/Symptoms of Drug Intoxication Withdrawal: No Advance Directives: No Advance Directives Information Provided: No Do you have a plan to hurt others: No Plan Recently lost weight without trying: No Eating poorly because of decreased appetite: No Nutrition Risks: No Nutritional Risk Poor oral hygiene: Yes service: No Current occupational status: unemployed Current occupation: Right hand dominate Meds Allergies Allergy/AdvReac Type Severity Reaction Status Date / Time No Known Allergies Allergy Verified 12/05/24 14:57 Active Medications: Current Medications Acetaminophen (Acetaminophen 325 Mg Tablet) 650 mg PO Q6H PRN PRN Reason: Pain, Mild 1-3,fever,headache Calcium Carbonate (Calcium Carbonate 750 Mg Tab.Chew) 750 mg PO Q4H PRN PRN Reason: Heartburn Dextrose (Dextrose 50 % 25 Gm/50 Ml Syringe) 25 gm IVPUSH Q15M PRN; Protocol PRN Reason: per Hypoglycemia Standing Ord. Glucose (Glucose Gel 15 Gm Gel..Gram.) 15 gm PO Q15M PRN; Protocol PRN Reason: per Hypoglycemia Standing Ord. Heparin Sodium (Porcine) (Heparin Sodium,Porcine 5,000 Unit/Ml Vial) 5,000 unit SUBCUT Q8H [facility] Piperacillin Sod/Tazobactam (Sod 3.375 gm/ Sodium Chloride) 50 mls @ 100 mls/hr IV Q6H [facility] Last Admin: 12/06/24 10:32 Dose: 100 mls/hr Propofol (Diprivan) 1,000 mg in 100 mls @ 0 mls/hr IVCONT .Q0M [facility]; Protocol Last Admin: 12/06/24 10:23 Dose: 50 mcg/kg/min, 25.86 mls/hr Norepinephrine Bitartrate (Levophed) 8 mg in 250 mls @ 0 mls/hr IVCONT .Q0M [facility]; Protocol Last Titration: 12/06/24 10:32 Dose: 0.24 mcg/kg/min, 38.79 mls/hr Sodium Bicarbonate 150 meq/ (Dextrose) 1,000 mls @ 150 mls/hr IV .Q6H40M [facility] Stop: 12/06/24 11:59 Last Admin: 12/06/24 09:20 Dose: Not Given Fluconazole (Diflucan) 200 mg in 100 mls @ 100 mls/hr IV Q24H [facility] Sodium Bicarbonate 150 meq/ (Dextrose) 1,000 mls @ 150 mls/hr IV .Q6H40M [facility] Insulin Human Lispro (Insulin Lispro 100 Unit/Ml 3 Ml Vial) 0 unit SUBCUT Q6H [facility]; Protocol Magnesium Hydroxide (Milk Of Magnesia 30 Ml Oral.Susp) 30 ml PO DAILY PRN PRN Reason: Constipation Melatonin (Melatonin 3 Mg Tablet) 6 mg PO BEDTIME PRN PRN Reason: Insomnia Sodium Chloride (0.9 % Sodium Chloride Flush 3 Ml Syringe) [facility] Last Admin: 12/06/24 07:34 Dose: 3 ml Home Medications ?Medication ?Instructions ?Recorded ?Confirmed ?Last Taken ?Type dexamethasone 4 mg tablet 4 mg PO BID PRN x2 days afte r 12/06/24 12/06/24 Unknown History chemotherapy Physical Exam 2 Vital Signs: Vital Signs: Last Vital Signs Temp 98.2 F 12/06/24 10:00 Pulse 72 12/06/24 10:32 Resp 18 12/06/24 10:00 BP 128/71 12/06/24 10:32 Pulse Ox 98 12/06/24 10:00 O2 Del Method Mechanical Ventil ation 12/06/24 10:00 FiO2 30 12/06/24 10:00 BMI result Body Mass Index 30.9 General: male in acute distress, unresponsive, connected to the ventilator Nutritional Appearance: well nourished and overweight Eyes: appearance normal, both eyes and all related structures; Alignment and Position: alignment normal and position normal Neck: No lymphadenopathy, no thyromegaly Resp: bilateral air entry equal, occasional added sounds present Cardio: Regular rate, regular rhythm; Heart sounds: S1 normal heart sound present and S2 normal heart sound present GI: soft, nontender, no guarding, no hepatosplenomegaly : bladder normal to inspection, bladder normal to palpation, no renal angle tenderness Skin: no rashes or lesions noted and elasticity normal Neuro: Can not do a neuro exam as patient is sedated Results Labs 12/06/24 09:02 12/06/24 09:02 Labs: Laboratory Results - last 24 hr 12/05/24 12/05/24 12/05/24 15:34 15:46 15:52 MCV 75.8 L MCH 22.8 L MCHC 30.1 L RDW 16.6 H Plt Count 619 H D MPV 9.3 L Immature Gran % (Auto) Cancelled Neut % (Auto) Cancelled Lymph % (Auto) Cancelled [place] % (Auto) Cancelled Eos % (Auto) Cancelled Baso % (Auto) Cancelled Lymph # (Auto) Cancelled [place] # (Auto) Cancelled Eos # (Auto) Cancelled Baso # (Auto) Cancelled Abs Immat Gran (auto) Cancelled Absolute Neuts (auto) Cancelled Absolute Nucleated RBC 0.000 Nucleated RBC % (auto) 0.0 Neutrophils % (Manual) 81 H Band Neutrophils % 8 H Lymphocytes % (Manual) 10 L Atypical Lymphs % (Man) Monocytes % (Manual) 1 L Metamyelocytes % Abs Neuts (Manual) 6.6 Lymphocytes # (Manual) 0.7 L Atyp Lymphs # (Manual) Monocytes # (Manual) 0.1 Metamyelocytes # Toxic Granulation PRESENT Toxic Vacuolation Dohle Bodies PRESENT Platelet Estimate INCREASED Plt Morphology Comment NORMAL RBC Morphology NOTED Hypochromasia Microcytosis Ovalocytes [place] Cells 2+ (3-5) PT INR VBG pH 7.33 VBG pCO2 39 VBG pO2 36 VBG HCO3 21 L VBG O2 Saturation 42.0 VBG Base Excess -4.5 Anion Gap 20 Estim Creat Clear Calc 95.3 Estimated GFR > 60 POC Glucose Random Glucose 135 H Lactic Acid 6.5 H* Lactic Acid F/U @ 2Hr Lactic Acid F/U @ 4Hr Calcium 9.7 Phosphorus Magnesium 2.3 Total Bilirubin 0.7 Direct Bilirubin 0.3 AST 47 H ALT 43 H Alkaline Phosphatase 132 H Troponin I High Sens < 2.7 D Total Protein 7.8 Albumin 3.8 Lipase 21 Stool Occult Blood NEGATIVE Blood Type Antibody Screen 12/05/24 12/05/24 12/05/24 18:04 18:20 22:53 MCV 77.6 L MCH 23.0 L MCHC 29.6 L RDW 17.1 H Plt Count 449 H D MPV 9.0 L Immature Gran % (Auto) Cancelled Neut % (Auto) Cancelled Lymph % (Auto) Cancelled [place] % (Auto) Cancelled Eos % (Auto) Cancelled Baso % (Auto) Cancelled Lymph # (Auto) Cancelled [place] # (Auto) Cancelled Eos # (Auto) Cancelled Baso # (Auto) Cancelled Abs Immat Gran (auto) Cancelled Absolute Neuts (auto) Cancelled Absolute Nucleated RBC 0.000 Nucleated RBC % (auto) 0.0 Neutrophils % (Manual) 55 Band Neutrophils % 39 H Lymphocytes % (Manual) 4 L Atypical Lymphs % (Man) Monocytes % (Manual) 2 Metamyelocytes % Abs Neuts (Manual) 3.0 Lymphocytes # (Manual) 0.1 L Atyp Lymphs # (Manual) Monocytes # (Manual) 0.1 Metamyelocytes # Toxic Granulation Toxic Vacuolation PRESENT Dohle Bodies PRESENT Platelet Estimate SLIGHTLY INCREASED Plt Morphology Comment NORMAL RBC Morphology NOTED Hypochromasia Microcytosis 1+ (5-14) Ovalocytes [place] Cells 3+ (>5) PT 18.5 H D INR 1.6 H VBG pH VBG pCO2 VBG pO2 VBG HCO3 VBG O2 Saturation VBG Base Excess Anion Gap 14 Estim Creat Clear Calc 81.6 Estimated GFR > 60 POC Glucose Random Glucose 114 Lactic Acid Lactic Acid F/U @ 2Hr 4.3 H* Lactic Acid F/U @ 4Hr 5.2 H* Calcium 7.8 L D Phosphorus 6.7 H Magnesium 2.0 Total Bilirubin 0.5 Direct Bilirubin AST 26 ALT 22 Alkaline Phosphatase 69 Troponin I High Sens Total Protein 5.2 L Albumin 2.6 L Lipase Stool Occult Blood Blood Type O Positive Antibody Screen NEGATIVE 12/05/24 12/05/24 12/06/24 22:58 23:56 04:12 MCV 76.2 L MCH 23.0 L MCHC 30.2 L RDW 16.9 H Plt Count 404 H MPV 9.4 Immature Gran % (Auto) Cancelled Neut % (Auto) Cancelled Lymph % (Auto) Cancelled [place] % (Auto) Cancelled Eos % (Auto) Cancelled Baso % (Auto) Cancelled Lymph # (Auto) Cancelled [place] # (Auto) Cancelled Eos # (Auto) Cancelled Baso # (Auto) Cancelled Abs Immat Gran (auto) Cancelled Absolute Neuts (auto) Cancelled Absolute Nucleated RBC 0.000 Nucleated RBC % (auto) 0.0 Neutrophils % (Manual) 37 L Band Neutrophils % 56 H Lymphocytes % (Manual) 2 L Atypical Lymphs % (Man) Monocytes % (Manual) 2 Metamyelocytes % 3 Abs Neuts (Manual) 6.8 Lymphocytes # (Manual) 0.1 L Atyp Lymphs # (Manual) Monocytes # (Manual) 0.1 Metamyelocytes # 0.2 Toxic Granulation Toxic Vacuolation PRESENT Dohle Bodies Platelet Estimate SLIGHTLY INCREASED Plt Morphology Comment NORMAL RBC Morphology NOTED Hypochromasia 1+ (5-14) Microcytosis 1+ (5-14) Ovalocytes [place] Cells 2+ (3-5) PT INR VBG pH 7.17 L* VBG pCO2 45 VBG pO2 42 VBG HCO3 17 L VBG O2 Saturation 50.0 VBG Base Excess -11.1 Anion Gap 17 Estim Creat Clear Calc 86.0 Estimated GFR > 60 POC Glucose 123 H Random Glucose 261 H Lactic Acid Lactic Acid F/U @ 2Hr Lactic Acid F/U @ 4Hr Calcium 7.9 L Phosphorus 5.1 H Magnesium 1.9 Total Bilirubin 0.6 Direct Bilirubin AST 17 ALT 12 Alkaline Phosphatase 49 Troponin I High Sens Total Protein 5.0 L Albumin 3.0 L Lipase Stool Occult Blood Blood Type Antibody Screen 12/06/24 12/06/24 04:34 09:02 MCV 76.9 L MCH 22.8 L MCHC 29.6 L RDW 16.7 H Plt Count 334 MPV 9.5 Immature Gran % (Auto) Cancelled Neut % (Auto) Cancelled Lymph % (Auto) Cancelled [place] % (Auto) Cancelled Eos % (Auto) Cancelled Baso % (Auto) Cancelled Lymph # (Auto) Cancelled [place] # (Auto) Cancelled Eos # (Auto) Cancelled Baso # (Auto) Cancelled Abs Immat Gran (auto) Cancelled Absolute Neuts (auto) Cancelled Absolute Nucleated RBC 0.000 Nucleated RBC % (auto) 0.0 Neutrophils % (Manual) 51 Band Neutrophils % 36 H Lymphocytes % (Manual) 8 L Atypical Lymphs % (Man) 2 Monocytes % (Manual) 3 Metamyelocytes % Abs Neuts (Manual) 7.7 Lymphocytes # (Manual) 0.7 L Atyp Lymphs # (Manual) 0.2 Monocytes # (Manual) 0.3 Metamyelocytes # Toxic Granulation Toxic Vacuolation PRESENT Dohle Bodies Platelet Estimate NORMAL Plt Morphology Comment NORMAL RBC Morphology NOTED Hypochromasia Microcytosis 1+ (5-14) Ovalocytes 1+ (5-14) [place] Cells 3+ (>5) PT INR VBG pH 7.42 VBG pCO2 29 VBG pO2 56 VBG HCO3 19 L VBG O2 Saturation 80.0 VBG Base Excess -4.4 Anion Gap 16 Estim Creat Clear Calc 86.0 Estimated GFR > 60 POC Glucose Random Glucose 334 H Lactic Acid Lactic Acid F/U @ 2Hr Lactic Acid F/U @ 4Hr Calcium 7.7 L Phosphorus Magnesium Total Bilirubin 0.5 Direct Bilirubin AST 24 ALT 12 Alkaline Phosphatase 42 Troponin I High Sens Total Protein 5.4 L Albumin 3.5 Lipase Stool Occult Blood Blood Type Antibody Screen Assessment and Plan (1) Acute diverticulitis: Status: Acute (2) Colonic mass: Status: Acute (3) Diverticulitis of colon with perforation: Status: Acute (4) Perforated viscus: Status: Acute (5) Acute hypoxemic respiratory failure: Status: Acute Plan Neuro: Acute encephalopathy possibly due to metabolic encephalopathy from perforated viscus On propofol for sedation, fentanyl drip for analgesia Close neurological status monitoring in the ICU every hour Cardiac: Cardiogenic Shock: Possibly secondary to positive pressure ventilation On Levophed support, titrate Levophed to keep map above 65 mm Hg Respiratory: Acute hypoxemic respiratory failure due to aspiration pneumonia Currently on ventilator support On PRVC mode FiO 25%, PEEP 5, TV400, RR 20, will keep him intubated due to recent surgery Peak pressures and plateau pressures are under the curve Ventilator management bundle with head end elevation, aspiration precaution, chlorhexidine mouthwash, daily awakening trials, daily spontaneous breathing trials GI: We will hold tube feeds until cleared from surgery Renal: renal function normal We will closely monitor I's and O's Avoid nephrotoxic medications Heme: Chronic anemia, closely monitor H&H, transfuse for hemoglobin less than 7 grams/deciliter Endocrine: Blood sugars higher side due to bicarb in D5, we will switch the fluids to LR 200 cc/hour Sliding scale insulin as needed Infectious disease: Blood cultures growing Gram-negative rods He is on empiric Zosyn and fluconazole Musculoskeletal: Decubitus ulcer prevention protocol Lines: Left femoral triple-lumen catheter placed on 12/05/2024 Prophylaxis: Heparin, pantoprazole Patient is critically ill with multiple organ failures, critical care time spent is about 40 minutes on ventilator management, sedation management, vasopressor management, close hemodynamic monitoring, review of labs and images at this time is excluding any procedural time
[2024-12-06 11:03] LABS: Glucose, Whole Blood 300 mg/dL (60-115)
[2024-12-06] MEDS: Lactated Ringers 1,000 ML 200 ML IVCONT ×3 (11:28→22:45)
[2024-12-06] MEDS: Chlorhexidine Gluc Oral Rinse 15 ML MOUTHWASH BUCCAL ×2 (11:37→20:06)
--- NOTE | 2024-12-06 11:40 | P.PNGS_ITS ---
Subjective Subjective Date of Service: 12/07/24 Interval history: Remains on the ventilator, intubated On pressors Good urine output No other events reported overnight Physical Exam 2 Vital Signs: Vital Signs: Last Vital Signs Temp 98.4 F 12/06/24 11:00 Pulse 71 12/06/24 11:11 Resp 18 12/06/24 11:00 BP 110/65 12/06/24 11:11 Pulse Ox 97 12/06/24 11:00 O2 Del Method Mechanical Ventil ation 12/06/24 11:00 FiO2 30 12/06/24 11:00 BMI result Body Mass Index 30.9 Const: Other: Sedated, on ventilator Resp: Other: On ventilator Cardio: Rate: regular rate GI: Other: Dressings dry, stoma without output although stoma appears viable, drains thin serosanguineous output both sides Palpation (GI): Soft to palpation Objective Data Active Medications Acetaminophen (Acetaminophen 325 Mg Tablet) 650 mg PO Q6H PRN PRN Reason: Pain, Mild 1-3,fever,headache Calcium Carbonate (Calcium Carbonate 750 Mg Tab.Chew) 750 mg PO Q4H PRN PRN Reason: Heartburn Chlorhexidine Gluconate (Chlorhexidine Gluc Oral Rinse 15 Ml Mouthwash) 15 ml BUCCAL BID [facility] Last Admin: 12/06/24 11:37 Dose: 15 ml Documented By: JUWAN Dextrose (Dextrose 50 % 25 Gm/50 Ml Syringe) 25 gm IVPUSH Q15M PRN; Protocol PRN Reason: per Hypoglycemia Standing Ord. Glucose (Glucose Gel 15 Gm Gel..Gram.) 15 gm PO Q15M PRN; Protocol PRN Reason: per Hypoglycemia Standing Ord. Heparin Sodium (Porcine) (Heparin Sodium,Porcine 5,000 Unit/Ml Vial) 5,000 unit SUBCUT Q8H [facility] Piperacillin Sod/Tazobactam (Sod 3.375 gm/ Sodium Chloride) 50 mls @ 100 mls/hr IV Q6H [facility] Last Infusion: 12/06/24 11:09 Dose: Infused Documented By: JUWAN Propofol (Diprivan) 1,000 mg in 100 mls @ 0 mls/hr IVCONT .Q0M [facility]; Protocol Last Admin: 12/06/24 10:23 Dose: 50 mcg/kg/min, 25.86 mls/hr Documented By: JUWAN Norepinephrine Bitartrate (Levophed) 8 mg in 250 mls @ 0 mls/hr IVCONT .Q0M [facility]; Protocol Last Titration: 12/06/24 11:11 Dose: 0.22 mcg/kg/min, 35.56 mls/hr Documented By: JUWAN Fluconazole (Diflucan) 200 mg in 100 mls @ 100 mls/hr IV Q24H [facility] Fentanyl (Sublimaze/Ns) 1,000 mcg in 100 mls @ 0 mls/hr IVCONT .Q0M [facility]; Protocol Lactated Ringer's (Lr) 1,000 mls @ 200 mls/hr IVCONT .Q5H [facility] Insulin Human Lispro (Insulin Lispro 100 Unit/Ml 3 Ml Vial) 0 unit SUBCUT Q6H [facility]; Protocol Last Admin: 12/06/24 11:10 Dose: 6 unit Documented By: JUWAN Magnesium Hydroxide (Milk Of Magnesia 30 Ml Oral.Susp) 30 ml PO DAILY PRN PRN Reason: Constipation Melatonin (Melatonin 3 Mg Tablet) 6 mg PO BEDTIME PRN PRN Reason: Insomnia Naloxone HCl (Naloxone Hcl 0.4 Mg/Ml Vial) 0.2 mg IVPUSH Q2M PRN PRN Reason: Excessive sedation or RR < 8 Pantoprazole Sodium (Pantoprazole Sodium 40 Mg/10 Ml Vial) 40 mg IVPUSH BID@0630,1630 [facility] Sodium Chloride (0.9 % Sodium Chloride Flush 3 Ml Syringe) 3 ml IVFLUSH QSHIFT [facility] Last Admin: 12/06/24 07:34 Dose: 3 ml Documented By: JUWAN Labs 12/07/24 04:34 12/07/24 04:34 Labs: Laboratory Results - last 24 hr 12/05/24 12/05/24 12/05/24 15:34 15:46 15:52 MCV 75.8 L MCH 22.8 L MCHC 30.1 L RDW 16.6 H Plt Count 619 H D MPV 9.3 L Immature Gran % (Auto) Cancelled Neut % (Auto) Cancelled Lymph % (Auto) Cancelled [place] % (Auto) Cancelled Eos % (Auto) Cancelled Baso % (Auto) Cancelled Lymph # (Auto) Cancelled [place] # (Auto) Cancelled Eos # (Auto) Cancelled Baso # (Auto) Cancelled Abs Immat Gran (auto) Cancelled Absolute Neuts (auto) Cancelled Absolute Nucleated RBC 0.000 Nucleated RBC % (auto) 0.0 Neutrophils % (Manual) 81 H Band Neutrophils % 8 H Lymphocytes % (Manual) 10 L Atypical Lymphs % (Man) Monocytes % (Manual) 1 L Metamyelocytes % Abs Neuts (Manual) 6.6 Lymphocytes # (Manual) 0.7 L Atyp Lymphs # (Manual) Monocytes # (Manual) 0.1 Metamyelocytes # Toxic Granulation PRESENT Toxic Vacuolation Dohle Bodies PRESENT Platelet Estimate INCREASED Plt Morphology Comment NORMAL RBC Morphology NOTED Hypochromasia Microcytosis Ovalocytes [place] Cells 2+ (3-5) PT INR VBG pH 7.33 VBG pCO2 39 VBG pO2 36 VBG HCO3 21 L VBG O2 Saturation 42.0 VBG Base Excess -4.5 Anion Gap 20 Estim Creat Clear Calc 95.3 Estimated GFR > 60 POC Glucose Random Glucose 135 H Lactic Acid 6.5 H* Lactic Acid F/U @ 2Hr Lactic Acid F/U @ 4Hr Calcium 9.7 Phosphorus Magnesium 2.3 Total Bilirubin 0.7 Direct Bilirubin 0.3 AST 47 H ALT 43 H Alkaline Phosphatase 132 H Troponin I High Sens < 2.7 D Total Protein 7.8 Albumin 3.8 Lipase 21 Stool Occult Blood NEGATIVE Blood Type Antibody Screen 12/05/24 12/05/24 12/05/24 18:04 18:20 22:53 MCV 77.6 L MCH 23.0 L MCHC 29.6 L RDW 17.1 H Plt Count 449 H D MPV 9.0 L Immature Gran % (Auto) Cancelled Neut % (Auto) Cancelled Lymph % (Auto) Cancelled [place] % (Auto) Cancelled Eos % (Auto) Cancelled Baso % (Auto) Cancelled Lymph # (Auto) Cancelled [place] # (Auto) Cancelled Eos # (Auto) Cancelled Baso # (Auto) Cancelled Abs Immat Gran (auto) Cancelled Absolute Neuts (auto) Cancelled Absolute Nucleated RBC 0.000 Nucleated RBC % (auto) 0.0 Neutrophils % (Manual) 55 Band Neutrophils % 39 H Lymphocytes % (Manual) 4 L Atypical Lymphs % (Man) Monocytes % (Manual) 2 Metamyelocytes % Abs Neuts (Manual) 3.0 Lymphocytes # (Manual) 0.1 L Atyp Lymphs # (Manual) Monocytes # (Manual) 0.1 Metamyelocytes # Toxic Granulation Toxic Vacuolation PRESENT Dohle Bodies PRESENT Platelet Estimate SLIGHTLY INCREASED Plt Morphology Comment NORMAL RBC Morphology NOTED Hypochromasia Microcytosis 1+ (5-14) Ovalocytes [place] Cells 3+ (>5) PT 18.5 H D INR 1.6 H VBG pH VBG pCO2 VBG pO2 VBG HCO3 VBG O2 Saturation VBG Base Excess Anion Gap 14 Estim Creat Clear Calc 81.6 Estimated GFR > 60 POC Glucose Random Glucose 114 Lactic Acid Lactic Acid F/U @ 2Hr 4.3 H* Lactic Acid F/U @ 4Hr 5.2 H* Calcium 7.8 L D Phosphorus 6.7 H Magnesium 2.0 Total Bilirubin 0.5 Direct Bilirubin AST 26 ALT 22 Alkaline Phosphatase 69 Troponin I High Sens Total Protein 5.2 L Albumin 2.6 L Lipase Stool Occult Blood Blood Type O Positive Antibody Screen NEGATIVE 12/05/24 12/05/24 12/06/24 22:58 23:56 04:12 MCV 76.2 L MCH 23.0 L MCHC 30.2 L RDW 16.9 H Plt Count 404 H MPV 9.4 Immature Gran % (Auto) Cancelled Neut % (Auto) Cancelled Lymph % (Auto) Cancelled [place] % (Auto) Cancelled Eos % (Auto) Cancelled Baso % (Auto) Cancelled Lymph # (Auto) Cancelled [place] # (Auto) Cancelled Eos # (Auto) Cancelled Baso # (Auto) Cancelled Abs Immat Gran (auto) Cancelled Absolute Neuts (auto) Cancelled Absolute Nucleated RBC 0.000 Nucleated RBC % (auto) 0.0 Neutrophils % (Manual) 37 L Band Neutrophils % 56 H Lymphocytes % (Manual) 2 L Atypical Lymphs % (Man) Monocytes % (Manual) 2 Metamyelocytes % 3 Abs Neuts (Manual) 6.8 Lymphocytes # (Manual) 0.1 L Atyp Lymphs # (Manual) Monocytes # (Manual) 0.1 Metamyelocytes # 0.2 Toxic Granulation Toxic Vacuolation PRESENT Dohle Bodies Platelet Estimate SLIGHTLY INCREASED Plt Morphology Comment NORMAL RBC Morphology NOTED Hypochromasia 1+ (5-14) Microcytosis 1+ (5-14) Ovalocytes [place] Cells 2+ (3-5) PT INR VBG pH 7.17 L* VBG pCO2 45 VBG pO2 42 VBG HCO3 17 L VBG O2 Saturation 50.0 VBG Base Excess -11.1 Anion Gap 17 Estim Creat Clear Calc 86.0 Estimated GFR > 60 POC Glucose 123 H Random Glucose 261 H Lactic Acid Lactic Acid F/U @ 2Hr Lactic Acid F/U @ 4Hr Calcium 7.9 L Phosphorus 5.1 H Magnesium 1.9 Total Bilirubin 0.6 Direct Bilirubin AST 17 ALT 12 Alkaline Phosphatase 49 Troponin I High Sens Total Protein 5.0 L Albumin 3.0 L Lipase Stool Occult Blood Blood Type Antibody Screen 12/06/24 12/06/24 12/06/24 04:34 09:02 11:00 MCV 76.9 L MCH 22.8 L MCHC 29.6 L RDW 16.7 H Plt Count 334 MPV 9.5 Immature Gran % (Auto) Cancelled Neut % (Auto) Cancelled Lymph % (Auto) Cancelled [place] % (Auto) Cancelled Eos % (Auto) Cancelled Baso % (Auto) Cancelled Lymph # (Auto) Cancelled [place] # (Auto) Cancelled Eos # (Auto) Cancelled Baso # (Auto) Cancelled Abs Immat Gran (auto) Cancelled Absolute Neuts (auto) Cancelled Absolute Nucleated RBC 0.000 Nucleated RBC % (auto) 0.0 Neutrophils % (Manual) 51 Band Neutrophils % 36 H Lymphocytes % (Manual) 8 L Atypical Lymphs % (Man) 2 Monocytes % (Manual) 3 Metamyelocytes % Abs Neuts (Manual) 7.7 Lymphocytes # (Manual) 0.7 L Atyp Lymphs # (Manual) 0.2 Monocytes # (Manual) 0.3 Metamyelocytes # Toxic Granulation Toxic Vacuolation PRESENT Dohle Bodies Platelet Estimate NORMAL Plt Morphology Comment NORMAL RBC Morphology NOTED Hypochromasia Microcytosis 1+ (5-14) Ovalocytes 1+ (5-14) [place] Cells 3+ (>5) PT INR VBG pH 7.42 VBG pCO2 29 VBG pO2 56 VBG HCO3 19 L VBG O2 Saturation 80.0 VBG Base Excess -4.4 Anion Gap 16 Estim Creat Clear Calc 86.0 Estimated GFR > 60 POC Glucose 300 H Random Glucose 334 H Lactic Acid Lactic Acid F/U @ 2Hr Lactic Acid F/U @ 4Hr Calcium 7.7 L Phosphorus Magnesium Total Bilirubin 0.5 Direct Bilirubin AST 24 ALT 12 Alkaline Phosphatase 42 Troponin I High Sens Total Protein 5.4 L Albumin 3.5 Lipase Stool Occult Blood Blood Type Antibody Screen Microbiology Microbiology Results: Microbiology 12/05/24 20:15 Gram Stain - Final Peritoneal Fluid Routine Culture - Preliminary Culture in progress. Anaerobic Culture - Preliminary Culture in progress. 12/05/24 16:52 Blood Culture - Preliminary Blood - Venous Prelim: GNR Gram Stain only 12/05/24 16:52 Blood Culture - Preliminary Blood - Venous Prelim: GNR Gram Stain only Procedures Date of Service Date of Service: 12/07/24 Progress Note: A&P Assessment and plan (1) Perforated viscus: Status: Acute Assessment and Plan: Status post laparotomy, resection of large perforated tumor, end-loop colostomy The peritoneal cavity was filled with stool throughout Anticipate difficult postop course in view of intra-abdominal sepsis Currently on pressors although seems to be hemodynamically stable Good urine output Await stoma function Keep drains in place May need to be on TPN IV antibiotics ICU care Pain management Discussed with healthcare proxy [place] Time Spent With Patient Time: Total time managing care of this patient today ____ minutes. Quality Stroke Does the patient have a stroke diagnosis?: No VTE Prior VTE?: No VTE Risk Level:: Medical - moderate - high VTE Device Contraindication: N/A - Device Ordered VTE Drug Contraindication: N/A - Med Ordered
[2024-12-06] MEDS: fentaNYL citrate/NS 1,000 MCG/100 ML PLAST..BAG 2.5 MCG IVCONT (11:43)
--- NOTE | 2024-12-06 13:14 | MHC.CM.PN ---
IMM 12/06/24 Patient is in ICU intubated S/P O.R. Perforated tumor, Peritoneal cavity fecal contents throughout, new Colostomy. Information for CM assessment obtained from HCP/Aunt Chioma and EMR. HCP on file. T/W met patient earlier this month. He was here for an out patient procedure: Port a cath insertion. He developed AFIB during the procedure and was admitted. He lives by himself. He was independent with all functional mobility prior to admission. He does not have a PCP. He is treated by oncologist, Dr Granda. Emotional support + encouragement were provided to HCP/Aunt Chioma. Discharge planning was discussed. Pending PT eval, DP likely local STR via BLS.
[2024-12-06 13:36] LABS: Reflex Lactate? Lactic Acid Added
[2024-12-06 14:32] LABS: ~Lactic Acid-LAB USE ONLY 4.0 mmol/L (0.5-2.0)
[2024-12-06] MEDS: LACTATED RINGERS 2607 ML IV (14:57)
[2024-12-06 16:05] LABS: Reflex Lactate? 2 Y
[2024-12-06 16:46] LABS: ~Lactic Acid-LAB USE ONLY 3.5 mmol/L (0.5-2.0)
--- NOTE | 2024-12-06 18:01 | PC.NURSE ---
Assumed care at 0700. Pt remains intubated and on propofol and levophed drips. Per MD, no sedation vacation or PSV trials today. Fentanyl drip started for analgesia. Pt?s lactic increasing. Fluid bolus ordered and administered.? Pt repositioned q2hr as tolerated. Fall/safety measures in place. See MAR and assessments for further details.
[2024-12-06 18:12] LABS: Alanine Aminotransferase 9 U/L (0-40); Albumin Level 3.1 g/dL (3.5-5.0); Alkaline Phosphatase 38 U/L (39-117); Anion Gap 13 (12-20); Aspartate Amino Transferase 21 U/L (5-37); Blood Urea Nitrogen 10 mg/dL (9-16); Calcium 7.7 mg/dL (8.4-10.2); Carbon Dioxide 27 mmol/L (22-29); Chloride 107 mmol/L (96-108); Creatinine Clr Calc Pharmacy 115.1; Estimated Glomerular Filt Rate > 60; Potassium 3.9 mmol/L (3.3-5.1); Sodium 143 mmol/L (135-145); Total Protein 4.8 g/dL (6.5-8.0)
[2024-12-06 18:14] LABS: Glucose, Whole Blood 212 mg/dL (60-115)
[2024-12-06] MEDS: fentaNYL citrate/NS 1,000 MCG/100 ML PLAST..BAG 10 MCG IVCONT (20:08)
[2024-12-06 21:23] LABS: Hematocrit 23.8 % (42.0-52.0); Hemoglobin 7.3 g/dl (14.0-18.0)
[2024-12-07] VITALS (51 sets, daily range): BP systolic 82–148; BP diastolic 46–86; PULSE 71–143; RESP 16–19; TEMP 34.7–38.4; O2SAT 93–96; BMI 30.5
[2024-12-07 00:14] LABS: Glucose, Whole Blood 171 mg/dL (60-115)
[2024-12-07] MEDS: 0.9 % Sodium Chloride Flush 3 ML SYRINGE IVFLUSH ×4 (00:28→23:08)
[2024-12-07] MEDS: Lactated Ringers 1,000 ML 200 ML IVCONT ×2 (03:38→07:20)
[2024-12-07 04:48] LABS: VBG HCO3 33 mmol/L (22-26); VBG O2 % Saturation 87.0 %
[2024-12-07 05:00] LABS: Venous Blood Gas Refer to POC result
[2024-12-07 05:27] LABS: Hematocrit 23.0 % (42.0-52.0); Mean Corpuscular HGB Conc 30.4 g/dl (31.0-36.0); Mean Corpuscular Hemoglobin 23.4 pg (27.0-33.0); Mean Corpuscular Volume 76.9 fL (80.0-98.0); NRBC Abs Auto 0.000 X10*3/uL (0.0-0.012); NRBC Pct Auto 0.0 /100WBC (0.0-0.2); Platelet Count 211 X10*3/uL (160-400); Red Blood Count 2.99 X10*6/uL (4.60-5.80)
[2024-12-07 05:40] LABS: WBC ABN SCTR FOR CBC 1
[2024-12-07 05:42] LABS: Hemoglobin 7.0 g/dl (14.0-18.0)
[2024-12-07 05:44] LABS: Alanine Aminotransferase 9 U/L (0-40); Albumin Level 3.4 g/dL (3.5-5.0); Alkaline Phosphatase 41 U/L (39-117); Anion Gap 11 (12-20); Aspartate Amino Transferase 23 U/L (5-37); Blood Urea Nitrogen 9 mg/dL (9-16); Calcium 8.3 mg/dL (8.4-10.2); Carbon Dioxide 28 mmol/L (22-29); Chloride 111 mmol/L (96-108); Creatinine Clr Calc Pharmacy 126.3; Estimated Glomerular Filt Rate > 60; Magnesium 2.2 mg/dL (1.6-2.6); Potassium 4.0 mmol/L (3.3-5.1); Sodium 146 mmol/L (135-145); Total Protein 5.3 g/dL (6.5-8.0)
[2024-12-07 05:58] LABS: Band Neutrophils Percent 20 % (3-5); Basophils Percent Manual 1 % (0-2); Eosinophils Percent Manual 2 % (0-4); Lymphocytes Percent Manual 8 % (20-40); Monocytes Percent Manual 1 % (2-11); Neutrophils Percent Manual 67 % (45-73); Promyelocytes Percent 1 %; RBC Morphology NOTED
[2024-12-07 05:59] LABS: Microcytosis 1+ (5-14) /OIF
[2024-12-07 06:00] LABS: Basophils Abs Manual 0.1 X10*3/uL (0.0-0.2); Burr Cells 1+ (0-2) /OIF; Eosinophils Absolute Manual 0.2 X10*3/uL (0.0-0.4); Lymphocytes Absolute Manual 0.6 X10*3/uL (1.2-4.9); Monocytes Absolute Manual 0.1 X10*3/uL (0.1-1.2); Neutrophils Absolute Manual 6.8 X10*3/uL (2.0-8.3); Promyelocytes Absolute 0.1 X10*3/uL; Target Cells 1+ (5-14) /OIF; White Blood Count 7.8 X10*3/uL (4.8-10.8)
[2024-12-07] MEDS: fentaNYL citrate/NS 1,000 MCG/100 ML PLAST..BAG 10 MCG IVCONT ×2 (06:09→15:47)
--- NOTE | 2024-12-07 07:10 | PC.NURSE ---
Assumed care at 1900. Patient remains intubated and sedated. Propofol and fentanyl gtts running per AUG, RASS -2 to -3. SR with frequent PACs on tele, HR 70s-80s. Levophed gtt running per AUG for BP support. Lung sounds diminished to bases, see vent assessment. Abdomen large and round, faint bowel sounds. Ostomy site moist and red, no stool output noted. LEÓN drains with considerable serosanguinous output, see I&O, PA aware. NGT remains connected to LIS, scant green output.? Sanchez catheter in place, draining clear yellow urine, UOP approx 100-200mL/hr. Blanchable redness to buttocks, pink foam in place. Abdominal incision dressing remains intact with some staining. 1 unit RBCs administered without issue, see TAR. Patient repositioned Q2HR, bed locked in lowest position, bed alarm on. Report given to oncoming RN.?
[2024-12-07] MEDS: Chlorhexidine Gluc Oral Rinse 15 ML MOUTHWASH BUCCAL ×2 (07:22→21:17)
--- NOTE | 2024-12-07 07:46 | PM.PNGS ---
Subjective Subjective Date of Service: 12/07/24 <Amy Alaniz PA-C - Last Filed: 12/07/24 07:54> 12/07/24 <Bam Collazo MD - Last Filed: 12/07/24 08:16> Interval history: Remains intubated on vent in ICU. Currently being transfused for drift of Hgb <7. <Amy Alaniz PA-C - Last Filed: 12/07/24 07:54> Physical Exam Vital Signs: Vital Signs: Last Vital Signs Temp 99.5 F 12/07/24 07:00 Pulse 78 12/07/24 07:20 Resp 16 12/07/24 07:00 BP 115/57 L 12/07/24 07:20 Pulse Ox 94 12/07/24 07:42 O2 Del Method Mechanical Ventil ation 12/07/24 07:00 FiO2 30 12/07/24 07:42 BMI result Body Mass Index 30.5 <Amy Alaniz PA-C - Last Filed: 12/07/24 07:54> HEENT: Other: NGT in place <Amy Alaniz PA-C - Last Filed: 12/07/24 07:54> Resp: Other: intubated on vent <Amy Alaniz PA-C - Last Filed: 12/07/24 07:54> GI: Other: abdomen distended and somewhat tympanitic midline incision clean, wound jelani advanced ostomy mildly edematous, pink, bridge in place, no ostomy output LEÓN drains with serosanguineous drainage <Amy Alaniz PA-C - Last Filed: 12/07/24 07:54> Palpation (GI): Soft to palpation <Amy Alaniz PA-C - Last Filed: 12/07/24 07:54> Skin: Other: warm and dry <JYOTI Madrigal Last Filed: 12/07/24 07:54> Extrem: Other: mild edema of upper extremities <JYOTI Madrigal Last Filed: 12/07/24 07:54> Objective Data Active Medications Acetaminophen (Acetaminophen 325 Mg Tablet) 650 mg PO Q6H PRN PRN Reason: Pain, Mild 1-3,fever,headache Calcium Carbonate (Calcium Carbonate 750 Mg Tab.Chew) 750 mg PO Q4H PRN PRN Reason: Heartburn Chlorhexidine Gluconate (Chlorhexidine Gluc Oral Rinse 15 Ml Mouthwash) 15 ml BUCCAL BID [facility] Last Admin: 12/07/24 07:22 Dose: 15 ml Documented By: RAYMOND Dextrose (Dextrose 50 % 25 Gm/50 Ml Syringe) 25 gm IVPUSH Q15M PRN; Protocol PRN Reason: per Hypoglycemia Standing Ord. Glucose (Glucose Gel 15 Gm Gel..Gram.) 15 gm PO Q15M PRN; Protocol PRN Reason: per Hypoglycemia Standing Ord. Heparin Sodium (Porcine) (Heparin Sodium,Porcine 5,000 Unit/Ml Vial) 5,000 unit SUBCUT Q8H [facility] Last Admin: 12/07/24 05:05 Dose: Not Given Documented By: PERFECTO Non-Admin Reason: Patient Condition Contraindication Piperacillin Sod/Tazobactam (Sod 3.375 gm/ Sodium Chloride) 50 mls @ 100 mls/hr IV Q6H [facility] Last Infusion: 12/07/24 05:05 Dose: Infused Documented By: PERFECTO Propofol (Diprivan) 1,000 mg in 100 mls @ 0 mls/hr IVCONT .Q0M [place]; Protocol Last Admin: 12/07/24 05:11 Dose: 40 mcg/kg/min, 20.69 mls/hr Documented By: PERFECTO Norepinephrine Bitartrate (Levophed) 8 mg in 250 mls @ 0 mls/hr IVCONT .Q0M [place]; Protocol Last Admin: 12/07/24 07:20 Dose: 0.26 mcg/kg/min, 42.02 mls/hr Documented By: RAYMOND Fluconazole (Diflucan) 200 mg in 100 mls @ 100 mls/hr IV Q24H [facility] Last Infusion: 12/06/24 22:07 Dose: Infused Documented By: PERFECTO Fentanyl (Sublimaze/Ns) 1,000 mcg in 100 mls @ 0 mls/hr IVCONT .Q0M [place]; Protocol Last Admin: 12/07/24 06:09 Dose: 100 mcg/hr, 10 mls/hr Documented By: PERFECTO Lactated Ringer's (Lr) 1,000 mls @ 200 mls/hr IVCONT .Q5H [facility] Last Admin: 12/07/24 07:20 Dose: 200 mls/hr Documented By: RAYMOND Insulin Human Lispro (Insulin Lispro 100 Unit/Ml 3 Ml Vial) 0 unit SUBCUT Q6H [facility]; Protocol Last Admin: 12/07/24 06:04 Dose: 2 unit Documented By: PERFECTO Magnesium Hydroxide (Milk Of Magnesia 30 Ml Oral.Susp) 30 ml PO DAILY PRN PRN Reason: Constipation Melatonin (Melatonin 3 Mg Tablet) 6 mg PO BEDTIME PRN PRN Reason: Insomnia Naloxone HCl (Naloxone Hcl 0.4 Mg/Ml Vial) 0.2 mg IVPUSH Q2M PRN PRN Reason: Excessive sedation or RR < 8 Pantoprazole Sodium (Pantoprazole Sodium 40 Mg/10 Ml Vial) 40 mg IVPUSH BID@0630,1630 [facility] Last Admin: 12/07/24 06:04 Dose: 40 mg Documented By: PERFECTO Sodium Chloride (0.9 % Sodium Chloride Flush 3 Ml Syringe) 3 ml IVFLUSH QSHIFT [facility] Last Admin: 12/07/24 07:23 Dose: 3 ml Documented By: RAYMOND <Amy Alaniz PA-C - Last Filed: 12/07/24 07:54> Labs CBC & Chem 7: 12/07/24 04:34 12/07/24 04:34 <Amy Alaniz PA-C - Last Filed: 12/07/24 07:54> Labs: Laboratory Results - last 24 hr 12/05/24 12/06/24 12/06/24 18:20 09:02 11:00 MCV 76.9 L MCH 22.8 L MCHC 29.6 L RDW 16.7 H Plt Count 334 MPV 9.5 Immature Gran % (Auto) Cancelled Neut % (Auto) Cancelled Lymph % (Auto) Cancelled [place] % (Auto) Cancelled Eos % (Auto) Cancelled Baso % (Auto) Cancelled Lymph # (Auto) Cancelled [place] # (Auto) Cancelled Eos # (Auto) Cancelled Baso # (Auto) Cancelled Abs Immat Gran (auto) Cancelled Absolute Neuts (auto) Cancelled Absolute Nucleated RBC 0.000 Nucleated RBC % (auto) 0.0 Neutrophils % (Manual) 51 Band Neutrophils % 36 H Lymphocytes % (Manual) 8 L Atypical Lymphs % (Man) 2 Monocytes % (Manual) 3 Eosinophils % (Manual) Basophils % (Manual) Promyelocytes % Abs Neuts (Manual) 7.7 Lymphocytes # (Manual) 0.7 L Atyp Lymphs # (Manual) 0.2 Monocytes # (Manual) 0.3 Eosinophils # (Manual) Basophils # (Manual) Promyelocytes # Toxic Vacuolation PRESENT Platelet Estimate NORMAL Plt Morphology Comment NORMAL RBC Morphology NOTED Microcytosis 1+ (5-14) Target Cells Ovalocytes 1+ (5-14) [place] Cells 3+ (>5) VBG pH VBG pCO2 VBG pO2 VBG HCO3 VBG O2 Saturation VBG Base Excess Anion Gap 16 Estim Creat Clear Calc 86.0 Estimated GFR > 60 POC Glucose 300 H Random Glucose 334 H Lactic Acid Lactic Acid F/U @ 2Hr Lactic Acid F/U @ 4Hr Calcium 7.7 L Phosphorus Magnesium Total Bilirubin 0.5 AST 24 ALT 12 Alkaline Phosphatase 42 Total Protein 5.4 L Albumin 3.5 Blood Type O Positive Antibody Screen NEGATIVE Crossmatch See Detail 12/06/24 12/06/24 12/06/24 11:32 14:01 16:25 MCV MCH MCHC RDW Plt Count MPV Immature Gran % (Auto) Neut % (Auto) Lymph % (Auto) [place] % (Auto) Eos % (Auto) Baso % (Auto) Lymph # (Auto) [place] # (Auto) Eos # (Auto) Baso # (Auto) Abs Immat Gran (auto) Absolute Neuts (auto) Absolute Nucleated RBC Nucleated RBC % (auto) Neutrophils % (Manual) Band Neutrophils % Lymphocytes % (Manual) Atypical Lymphs % (Man) Monocytes % (Manual) Eosinophils % (Manual) Basophils % (Manual) Promyelocytes % Abs Neuts (Manual) Lymphocytes # (Manual) Atyp Lymphs # (Manual) Monocytes # (Manual) Eosinophils # (Manual) Basophils # (Manual) Promyelocytes # Toxic Vacuolation Platelet Estimate Plt Morphology Comment RBC Morphology Microcytosis Target Cells Ovalocytes [place] Cells VBG pH VBG pCO2 VBG pO2 VBG HCO3 VBG O2 Saturation VBG Base Excess Anion Gap Estim Creat Clear Calc Estimated GFR POC Glucose Random Glucose Lactic Acid 3.9 H* Lactic Acid F/U @ 2Hr 4.0 H* Lactic Acid F/U @ 4Hr 3.5 H* Calcium Phosphorus Magnesium Total Bilirubin AST ALT Alkaline Phosphatase Total Protein Albumin Blood Type Antibody Screen Crossmatch 12/06/24 12/06/24 12/07/24 17:53 18:11 00:10 MCV MCH MCHC RDW Plt Count MPV Immature Gran % (Auto) Neut % (Auto) Lymph % (Auto) [place] % (Auto) Eos % (Auto) Baso % (Auto) Lymph # (Auto) [place] # (Auto) Eos # (Auto) Baso # (Auto) Abs Immat Gran (auto) Absolute Neuts (auto) Absolute Nucleated RBC Nucleated RBC % (auto) Neutrophils % (Manual) Band Neutrophils % Lymphocytes % (Manual) Atypical Lymphs % (Man) Monocytes % (Manual) Eosinophils % (Manual) Basophils % (Manual) Promyelocytes % Abs Neuts (Manual) Lymphocytes # (Manual) Atyp Lymphs # (Manual) Monocytes # (Manual) Eosinophils # (Manual) Basophils # (Manual) Promyelocytes # Toxic Vacuolation Platelet Estimate Plt Morphology Comment RBC Morphology Microcytosis Target Cells Ovalocytes [place] Cells VBG pH VBG pCO2 VBG pO2 VBG HCO3 VBG O2 Saturation VBG Base Excess Anion Gap 13 Estim Creat Clear Calc 115.1 Estimated GFR > 60 POC Glucose 212 H 171 H Random Glucose 242 H Lactic Acid Lactic Acid F/U @ 2Hr Lactic Acid F/U @ 4Hr Calcium 7.7 L Phosphorus Magnesium Total Bilirubin 0.4 AST 21 ALT 9 Alkaline Phosphatase 38 L Total Protein 4.8 L Albumin 3.1 L Blood Type Antibody Screen Crossmatch 12/07/24 12/07/24 04:34 04:43 MCV 76.9 L MCH 23.4 L MCHC 30.4 L RDW 16.7 H Plt Count 211 D MPV 9.8 Immature Gran % (Auto) Cancelled Neut % (Auto) Cancelled Lymph % (Auto) Cancelled [place] % (Auto) Cancelled Eos % (Auto) Cancelled Baso % (Auto) Cancelled Lymph # (Auto) Cancelled [place] # (Auto) Cancelled Eos # (Auto) Cancelled Baso # (Auto) Cancelled Abs Immat Gran (auto) Cancelled Absolute Neuts (auto) Cancelled Absolute Nucleated RBC 0.000 Nucleated RBC % (auto) 0.0 Neutrophils % (Manual) 67 Band Neutrophils % 20 H Lymphocytes % (Manual) 8 L Atypical Lymphs % (Man) Monocytes % (Manual) 1 L Eosinophils % (Manual) 2 Basophils % (Manual) 1 Promyelocytes % 1 Abs Neuts (Manual) 6.8 Lymphocytes # (Manual) 0.6 L Atyp Lymphs # (Manual) Monocytes # (Manual) 0.1 Eosinophils # (Manual) 0.2 Basophils # (Manual) 0.1 Promyelocytes # 0.1 Toxic Vacuolation Platelet Estimate NORMAL Plt Morphology Comment NORMAL RBC Morphology NOTED Microcytosis 1+ (5-14) Target Cells 1+ (5-14) Ovalocytes [place] Cells 1+ (0-2) VBG pH 7.53 H VBG pCO2 39 VBG pO2 57 VBG HCO3 33 H VBG O2 Saturation 87.0 VBG Base Excess 9.8 Anion Gap 11 L Estim Creat Clear Calc 126.3 Estimated GFR > 60 POC Glucose Random Glucose 175 H Lactic Acid Lactic Acid F/U @ 2Hr Lactic Acid F/U @ 4Hr Calcium 8.3 L D Phosphorus 2.5 L Magnesium 2.2 Total Bilirubin 0.5 AST 23 ALT 9 Alkaline Phosphatase 41 Total Protein 5.3 L Albumin 3.4 L Blood Type Antibody Screen Crossmatch <Amy Alaniz PA-C - Last Filed: 12/07/24 07:54> Microbiology Microbiology Results: Microbiology 12/05/24 20:15 Gram Stain - Final Peritoneal Fluid Routine Culture - Preliminary Gram negative dorian Anaerobic Culture - Preliminary Culture in progress. 12/05/24 16:52 Blood Culture - Preliminary Blood - Venous Prelim: GNR Gram Stain only 12/05/24 16:52 Blood Culture - Preliminary Blood - Venous Prelim: GNR Gram Stain only <Amy Alaniz PA-C - Last Filed: 12/07/24 07:54> Procedures Date of Service Date of Service: 12/07/24 <Amy Alaniz PA-C - Last Filed: 12/07/24 07:54> 12/07/24 <Bam Collazo MD - Last Filed: 12/07/24 08:16> Progress Note: A&P Assessment and plan (1) Diverticulitis of colon with perforation: Status: Acute <Amy Alaniz PA-C - Last Filed: 12/07/24 07:54> Assessment and Plan: No events overnight Remains on the ventilator On pressors No output from the stoma yet Good urine output Abdomen is soft Stoma viable Wound care On IV antibiotics May need TPN ICU care Seen and examined independently family updated <Bam Collazo MD - Last Filed: 12/07/24 08:16> (2) S/P colostomy: Status: Acute <Amy Alaniz PA-C - Last Filed: 12/07/24 07:54> Assessment and Plan: Status post laparotomy, resection of large perforated tumor, 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 Found to have profound fecal contamination and fecal peritonitis throughout the entire peritoneal cavity. Anticipate difficult postop course in view of intra-abdominal sepsis- remains intubated in ICU on high dose pressors, IVF although seems to be hemodynamically stable with good UOP. Slight drift in H/h this AM, being transfused. Drains in place with serosanguineous output, likely irrigation. High volume ok. Incision clean with wound jelani advanced this AM. Await stoma function, likely will have prolonged ileus due to fecal peritonitis. Rec TPN initation. Cont IV antibiotics. Further restorative measures per ICU team. <Amy Alaniz PA-C - Last Filed: 12/07/24 07:54> Time Spent With Patient Time: Total time managing care of this patient today ____ minutes. <Amy Alaniz PA-C - Last Filed: 12/07/24 07:54> Quality Stroke Does the patient have a stroke diagnosis?: No <Amy Alaniz PA-C - Last Filed: 12/07/24 07:54> VTE Prior VTE?: No <Amy Alaniz PA-C - Last Filed: 12/07/24 07:54> VTE Risk Level:: Medical - moderate - high <JYOTI Madrigal Last Filed: 12/07/24 07:54> VTE Device Contraindication: N/A - Device Ordered <JYOTI Madrigal Last Filed: 12/07/24 07:54> VTE Drug Contraindication: N/A - Med Ordered <JYOTI Madrigal Last Filed: 12/07/24 07:54>
--- NOTE | 2024-12-07 11:00 | PM.CCPN ---
Subjective Subjective Date of Service: 12/07/24 Interval History: 84-year-old gentleman with stage IV colon cancer on chemotherapy admitted on 12/05/2024 with abdominal pain secondary to sigmoid perforation with fecal peritonitis, now postoperative day 2 after laparotomy with sigmoid resection and placement of transverse colostomy, remains intubated after procedure. Overnight with drop in hemoglobin, now receiving 2 units of packed red blood cells. Critical Care Time (minutes): 60 Physical Exam Vital Signs: Vital Signs: Last Vital Signs Temp 99.5 F 12/07/24 09:55 Pulse 105 H 12/07/24 09:55 Resp 18 12/07/24 09:55 BP 136/86 12/07/24 09:55 Pulse Ox 96 12/07/24 09:55 O2 Del Method Mechanical Ventil ation 12/07/24 09:55 FiO2 30 12/07/24 09:55 BMI result Body Mass Index 30.5 Const: General: no acute distress and other (Sedated on ventilatory support) Eyes: Sclerae: sclerae normal Neck: Neck: Yes no lymphadenopathy, Yes trachea midline and Yes supple Resp: Auscultation: clear to auscultation bilaterally Cardio: Rate: tachycardic Rhythm: regular rhythm Heart sounds: no gallops, no murmurs and no rubs GI: Other: Colostomy with small amount of serosanguineous output Palpation (GI): Soft to palpation Auscultation: Hypoactive bowel sounds present Extrem: General: Yes no pedal edema, No clubbing and No cyanosis Objective Data Labs 12/07/24 04:34 12/07/24 04:34 Labs: Laboratory Results - last 24 hr 12/05/24 12/06/24 12/06/24 18:20 11:00 11:32 WBC RBC Hgb Hct MCV MCH MCHC RDW Plt Count MPV Immature Gran % (Auto) Neut % (Auto) Lymph % (Auto) [place] % (Auto) Eos % (Auto) Baso % (Auto) Lymph # (Auto) [place] # (Auto) Eos # (Auto) Baso # (Auto) Abs Immat Gran (auto) Absolute Neuts (auto) Absolute Nucleated RBC Nucleated RBC % (auto) Neutrophils % (Manual) Band Neutrophils % Lymphocytes % (Manual) Monocytes % (Manual) Eosinophils % (Manual) Basophils % (Manual) Promyelocytes % Abs Neuts (Manual) Lymphocytes # (Manual) Monocytes # (Manual) Eosinophils # (Manual) Basophils # (Manual) Promyelocytes # Platelet Estimate Plt Morphology Comment RBC Morphology Microcytosis Target Cells [place] Cells VBG pH VBG pCO2 VBG pO2 VBG HCO3 VBG O2 Saturation VBG Base Excess Sodium Potassium Chloride Carbon Dioxide Anion Gap BUN Creatinine Estim Creat Clear Calc Estimated GFR POC Glucose 300 H Random Glucose Lactic Acid 3.9 H* Lactic Acid F/U @ 2Hr Lactic Acid F/U @ 4Hr Calcium Phosphorus Magnesium Total Bilirubin AST ALT Alkaline Phosphatase Total Protein Albumin Blood Type O Positive Antibody Screen NEGATIVE Crossmatch See Detail 12/06/24 12/06/24 12/06/24 14:01 16:25 17:53 WBC RBC Hgb Hct MCV MCH MCHC RDW Plt Count MPV Immature Gran % (Auto) Neut % (Auto) Lymph % (Auto) [place] % (Auto) Eos % (Auto) Baso % (Auto) Lymph # (Auto) [place] # (Auto) Eos # (Auto) Baso # (Auto) Abs Immat Gran (auto) Absolute Neuts (auto) Absolute Nucleated RBC Nucleated RBC % (auto) Neutrophils % (Manual) Band Neutrophils % Lymphocytes % (Manual) Monocytes % (Manual) Eosinophils % (Manual) Basophils % (Manual) Promyelocytes % Abs Neuts (Manual) Lymphocytes # (Manual) Monocytes # (Manual) Eosinophils # (Manual) Basophils # (Manual) Promyelocytes # Platelet Estimate Plt Morphology Comment RBC Morphology Microcytosis Target Cells [place] Cells VBG pH VBG pCO2 VBG pO2 VBG HCO3 VBG O2 Saturation VBG Base Excess Sodium 143 Potassium 3.9 Chloride 107 Carbon Dioxide 27 Anion Gap 13 BUN 10 Creatinine 0.74 Estim Creat Clear Calc 115.1 Estimated GFR > 60 POC Glucose Random Glucose 242 H Lactic Acid Lactic Acid F/U @ 2Hr 4.0 H* Lactic Acid F/U @ 4Hr 3.5 H* Calcium 7.7 L Phosphorus Magnesium Total Bilirubin 0.4 AST 21 ALT 9 Alkaline Phosphatase 38 L Total Protein 4.8 L Albumin 3.1 L Blood Type Antibody Screen Crossmatch 12/06/24 12/06/24 12/07/24 18:11 21:15 00:10 WBC RBC Hgb 7.3 L Hct 23.8 L MCV MCH MCHC RDW Plt Count MPV Immature Gran % (Auto) Neut % (Auto) Lymph % (Auto) [place] % (Auto) Eos % (Auto) Baso % (Auto) Lymph # (Auto) [place] # (Auto) Eos # (Auto) Baso # (Auto) Abs Immat Gran (auto) Absolute Neuts (auto) Absolute Nucleated RBC Nucleated RBC % (auto) Neutrophils % (Manual) Band Neutrophils % Lymphocytes % (Manual) Monocytes % (Manual) Eosinophils % (Manual) Basophils % (Manual) Promyelocytes % Abs Neuts (Manual) Lymphocytes # (Manual) Monocytes # (Manual) Eosinophils # (Manual) Basophils # (Manual) Promyelocytes # Platelet Estimate Plt Morphology Comment RBC Morphology Microcytosis Target Cells [place] Cells VBG pH VBG pCO2 VBG pO2 VBG HCO3 VBG O2 Saturation VBG Base Excess Sodium Potassium Chloride Carbon Dioxide Anion Gap BUN Creatinine Estim Creat Clear Calc Estimated GFR POC Glucose 212 H 171 H Random Glucose Lactic Acid Lactic Acid F/U @ 2Hr Lactic Acid F/U @ 4Hr Calcium Phosphorus Magnesium Total Bilirubin AST ALT Alkaline Phosphatase Total Protein Albumin Blood Type Antibody Screen Crossmatch 12/07/24 12/07/24 04:34 04:43 WBC 7.8 RBC 2.99 L Hgb 7.0 L* Hct 23.0 L MCV 76.9 L MCH 23.4 L MCHC 30.4 L RDW 16.7 H Plt Count 211 D MPV 9.8 Immature Gran % (Auto) Cancelled Neut % (Auto) Cancelled Lymph % (Auto) Cancelled [place] % (Auto) Cancelled Eos % (Auto) Cancelled Baso % (Auto) Cancelled Lymph # (Auto) Cancelled [place] # (Auto) Cancelled Eos # (Auto) Cancelled Baso # (Auto) Cancelled Abs Immat Gran (auto) Cancelled Absolute Neuts (auto) Cancelled Absolute Nucleated RBC 0.000 Nucleated RBC % (auto) 0.0 Neutrophils % (Manual) 67 Band Neutrophils % 20 H Lymphocytes % (Manual) 8 L Monocytes % (Manual) 1 L Eosinophils % (Manual) 2 Basophils % (Manual) 1 Promyelocytes % 1 Abs Neuts (Manual) 6.8 Lymphocytes # (Manual) 0.6 L Monocytes # (Manual) 0.1 Eosinophils # (Manual) 0.2 Basophils # (Manual) 0.1 Promyelocytes # 0.1 Platelet Estimate NORMAL Plt Morphology Comment NORMAL RBC Morphology NOTED Microcytosis 1+ (5-14) Target Cells 1+ (5-14) [place] Cells 1+ (0-2) VBG pH 7.53 H VBG pCO2 39 VBG pO2 57 VBG HCO3 33 H VBG O2 Saturation 87.0 VBG Base Excess 9.8 Sodium 146 H Potassium 4.0 Chloride 111 H Carbon Dioxide 28 Anion Gap 11 L BUN 9 Creatinine 0.67 Estim Creat Clear Calc 126.3 Estimated GFR > 60 POC Glucose Random Glucose 175 H Lactic Acid Lactic Acid F/U @ 2Hr Lactic Acid F/U @ 4Hr Calcium 8.3 L D Phosphorus 2.5 L Magnesium 2.2 Total Bilirubin 0.5 AST 23 ALT 9 Alkaline Phosphatase 41 Total Protein 5.3 L Albumin 3.4 L Blood Type Antibody Screen Crossmatch Microbiology Microbiology Results: Microbiology 12/05/24 16:52 Blood - Venous Blood Culture - Preliminary Gram negative dorian 12/05/24 16:52 Blood - Venous Blood Culture - Preliminary Gram negative dorian 12/05/24 20:15 Peritoneal Fluid Gram Stain - Final 12/05/24 20:15 Peritoneal Fluid Routine Culture - Preliminary Gram negative dorian 12/05/24 20:15 Peritoneal Fluid Anaerobic Culture - Preliminary Culture in progress. Progress Note: A&P Assessment and plan (1) Status post laparoscopic-assisted sigmoidectomy: Status: Acute (2) S/P colostomy: Status: Acute (3) Colon cancer: Status: Acute (4) Acute hypoxemic respiratory failure: Status: Acute Plan Assessment: 54-year-old gentleman postoperative day 2 for sigmoidectomy and transverse colostomy for perforated sigmoid cancer remains intubated postop Plan: Neuro: No acute issues. Cardiac: No acute issues. Pulmonary: Acute hypoxic respiratory failure, remains intubated postop, continue to titrate off ventilatory support as tolerated. Renal: No acute issues. Endo: No acute issues. GI: Postoperative day 2 after sigmoidectomy with transverse colostomy for perforated sigmoid cancer. General surgery service care appreciated. ID: Empiric coverage for peritonitis. Heme/Onc: No acute issues. Psych: No acute issues. Miscellaneous: No acute issues. Prophylaxis: Pneumatic compression, famotidine Diet: TPN Critical care time spent: 60 minutes Quality Stroke Does the patient have a stroke diagnosis?: No VTE Prior VTE?: No VTE Risk Level:: Medical - moderate - high VTE Device Contraindication: N/A - Device Ordered VTE Drug Contraindication: N/A - Med Ordered
--- NOTE | 2024-12-07 11:00 | MHC.CLN ---
CONSULT PT REQUIRES TPN FOR NUTRITION SUPPORT R/T PROLONGED NPO STATUS DISCUSSED AT ROUNDS WITH MD PLAN FOR NPO; START TPN-PT HAS PORT REVIEWED LABS DISCUSSED WITH PHARMACY RECOMMEND TPN AT 60ML/HR TO PROVIDE 1022KCALS (1705KCALS WITH [id number]/KG), 216G DEXTROSE, 72G PROTEIN (.98G/KG) REPLETE LYTES NEEDED SEE ALSO FULL CLINICAL NUTRITION ASSESSMENT
[2024-12-07 11:04] LABS: Glucose, Whole Blood 164 mg/dL (60-115)
--- NOTE | 2024-12-07 12:41 | MHC.CM.PN ---
Pt continues post surgical care in ICU: s/p perf viscus r/t metastatic dz. Pt is intubated and on multiple medications for bowel spillage. No plans to wean/extubate at this time. Pt was independent and lived alone prior to admission. CM to follow for finalization of d/c planning needs.
[2024-12-07 13:19] LABS: Hematocrit 28.6 % (42.0-52.0); Hemoglobin 8.8 g/dl (14.0-18.0); Mean Corpuscular HGB Conc 30.8 g/dl (31.0-36.0); Mean Corpuscular Hemoglobin 24.4 pg (27.0-33.0); Mean Corpuscular Volume 79.4 fL (80.0-98.0); NRBC Abs Auto 0.000 X10*3/uL (0.0-0.012); NRBC Pct Auto 0.0 /100WBC (0.0-0.2); Platelet Count 198 X10*3/uL (160-400); Red Blood Count 3.60 X10*6/uL (4.60-5.80)
[2024-12-07 13:21] LABS: WBC ABN SCTR FOR CBC 1
[2024-12-07 14:17] LABS: Band Neutrophils Percent 13 % (3-5); Eosinophils Percent Manual 5 % (0-4); Lymphocytes Percent Manual 3 % (20-40); Monocytes Percent Manual 1 % (2-11); Neutrophils Percent Manual 78 % (45-73)
[2024-12-07 14:19] LABS: Burr Cells 2+ (3-5) /OIF; RBC Morphology NOTED
[2024-12-07 14:20] LABS: Hypochromasia 1+ (5-14) /OIF
[2024-12-07 14:21] LABS: Dohle Bodies PRESENT
[2024-12-07 14:22] LABS: Eosinophils Absolute Manual 0.4 X10*3/uL (0.0-0.4); Lymphocytes Absolute Manual 0.2 X10*3/uL (1.2-4.9); Monocytes Absolute Manual 0.1 X10*3/uL (0.1-1.2); Neutrophils Absolute Manual 6.4 X10*3/uL (2.0-8.3); White Blood Count 7.0 X10*3/uL (4.8-10.8)
[2024-12-07] MEDS: Amiodarone/Dextrose 150 MG/100 ML PLAST..BAG 600 MG IV (15:41)
[2024-12-07] MEDS: vancomycin/NS 2,000 MG/500 ML PLAST..BAG 250 MG IV (15:57)
[2024-12-07 17:04] LABS: Glucose, Whole Blood 156 mg/dL (60-115)
--- NOTE | 2024-12-07 17:23 | PHA.PROG ---
Admission Date/Time: December 05, 2024 22:07 Indication: EMPIRIC THERAPY Weight in k.7 kg Adjusted body weight in Kg: Trosper body weight in Kg: Obesity Dosing Indication % IBW: Serum Creatinine - Last 168 Hours 12/05/24 12/05/24 12/06/24 15:46 22:53 04:12 Creatinine 0.89 1.04 0.99 12/06/24 12/06/24 12/07/24 09:02 17:53 04:34 Creatinine 0.99 0.74 0.67 Estimated CrCl and GFR - Last 168 Hours 12/05/24 12/05/24 12/06/24 15:46 22:53 04:12 Estim Creat Clear Calc 95.3 81.6 86.0 Estimated GFR > 60 > 60 > 60 12/06/24 12/06/24 12/07/24 09:02 17:53 04:34 Estim Creat Clear Calc 86.0 115.1 126.3 Estimated GFR > 60 > 60 > 60 Vancomycin Loading Dose: 2000 MG Current Vancomycin Dosing Regimen: 1500 MG Q12H Vancomycin Monitoring using AUC goal of 400 - 600 range with trough as surrogate marker: MTY=550 TROUGH=16.5 Date and Time for next Vancomycin Level to be drawn: 12/08/24 @1400 Pharmacist Comments on Vancomycin Plan: Vancomycin dosing will take advantage of Handle as a clinical decision support tool that uses Bayesian modeling to calculate individual patient's pharmacokinetic parameters and forecast the patient's drug concentration time course with the target goal AUC 24 range of 400 - 600 mg/L/hr.
[2024-12-07] MEDS: Parenteral Nutrition 1,440 ML 60 ML IV (21:16)
[2024-12-08] VITALS (52 sets, daily range): BP systolic 97–137; BP diastolic 49–81; PULSE 65–118; RESP 18–94; TEMP 34.8–39.1; O2SAT 92–94; BMI 33.7
[2024-12-08 00:04] LABS: Glucose, Whole Blood 191 mg/dL (60-115)
[2024-12-08] MEDS: fentaNYL citrate/NS 1,000 MCG/100 ML PLAST..BAG 10 MCG IVCONT ×3 (01:33→21:28)
[2024-12-08 04:33] LABS: VBG HCO3 31 mmol/L (22-26); VBG O2 % Saturation 76.0 %
[2024-12-08 05:08] LABS: Venous Blood Gas Refer to POC result
[2024-12-08 05:28] LABS: Hematocrit 27.7 % (42.0-52.0); Hemoglobin 8.5 g/dl (14.0-18.0); Mean Corpuscular HGB Conc 30.7 g/dl (31.0-36.0); Mean Corpuscular Hemoglobin 23.9 pg (27.0-33.0); Mean Corpuscular Volume 78.0 fL (80.0-98.0); NRBC Abs Auto 0.000 X10*3/uL (0.0-0.012); NRBC Pct Auto 0.0 /100WBC (0.0-0.2); Platelet Count 194 X10*3/uL (160-400); Red Blood Count 3.55 X10*6/uL (4.60-5.80); White Blood Count 7.8 X10*3/uL (4.8-10.8)
[2024-12-08 05:44] LABS: Triglycerides 236 mg/dL (<150)
[2024-12-08 05:50] LABS: Alanine Aminotransferase 8 U/L (0-40); Albumin Level 2.8 g/dL (3.5-5.0); Alkaline Phosphatase 53 U/L (39-117); Anion Gap 10 (12-20); Aspartate Amino Transferase 24 U/L (5-37); Blood Urea Nitrogen 10 mg/dL (9-16); Calcium 8.1 mg/dL (8.4-10.2); Carbon Dioxide 27 mmol/L (22-29); Chloride 113 mmol/L (96-108); Creatinine Clr Calc Pharmacy 132.6; Estimated Glomerular Filt Rate > 60; Magnesium 2.3 mg/dL (1.6-2.6); Potassium 3.6 mmol/L (3.3-5.1); Sodium 146 mmol/L (135-145); Total Protein 4.9 g/dL (6.5-8.0)
[2024-12-08 06:03] LABS: Band Neutrophils Percent 8 % (3-5); Eosinophils Absolute Manual 0.5 X10*3/uL (0.0-0.4); Eosinophils Percent Manual 7 % (0-4); Lymphocytes Absolute Manual 0.2 X10*3/uL (1.2-4.9); Lymphocytes Percent Manual 3 % (20-40); Microcytosis 1+ (5-14) /OIF; Monocytes Absolute Manual 0.1 X10*3/uL (0.1-1.2); Monocytes Percent Manual 1 % (2-11); Neutrophils Absolute Manual 6.9 X10*3/uL (2.0-8.3); Neutrophils Percent Manual 81 % (45-73); RBC Morphology NOTED
[2024-12-08 06:05] LABS: Burr Cells 2+ (3-5) /OIF; Schistocytes 1+ (0-2) /OIF; Toxic Granulation PRESENT
[2024-12-08] MEDS: Potassium Phosphate/NS 15 MMOL/250 ML PLAST..BAG 62.5 MMOL IV ×2 (06:17→10:19)
[2024-12-08] MEDS: Albumin Human 25 % 50 ML 100 ML IV ×4 (06:25→08:28)
[2024-12-08 06:32] LABS: Glucose, Whole Blood 218 mg/dL (60-115)
[2024-12-08] MEDS: 0.9 % Sodium Chloride Flush 3 ML SYRINGE IVFLUSH ×3 (07:26→23:17)
--- NOTE | 2024-12-08 07:29 | P.PNGS_ITS ---
Subjective Subjective Date of Service: 12/08/24 <Amy Alaniz PA-C - Last Filed: 12/08/24 07:33> 12/08/24 <Bam Collazo MD - Last Filed: 12/08/24 08:37> Physical Exam 2 Vital Signs: Vital Signs: Last Vital Signs Temp 101.7 F H 12/08/24 07:00 Pulse 73 12/08/24 07:00 Resp 18 12/08/24 07:00 BP 119/66 12/08/24 07:00 Pulse Ox 94 12/08/24 07:18 O2 Del Method Mechanical Ventil ation 12/08/24 07:00 FiO2 25 12/08/24 07:18 BMI result Body Mass Index 33.7 <Amy Alaniz PA-C - Last Filed: 12/08/24 07:33> Objective Data Active Medications Chlorhexidine Gluconate (Chlorhexidine Gluc Oral Rinse 15 Ml Mouthwash) 15 ml BUCCAL BID GEORGINA Last Admin: 12/07/24 21:17 Dose: 15 ml Documented By: REYNA Dextrose (Dextrose 50 % 25 Gm/50 Ml Syringe) 25 gm IVPUSH Q15M PRN; Protocol PRN Reason: per Hypoglycemia Standing Ord. Glucose (Glucose Gel 15 Gm Gel..Gram.) 15 gm PO Q15M PRN; Protocol PRN Reason: per Hypoglycemia Standing Ord. Piperacillin Sod/Tazobactam (Sod 3.375 gm/ Sodium Chloride) 50 mls @ 100 mls/hr IV Q6H [facility] Last Infusion: 12/08/24 05:15 Dose: Infused Documented By: REYNA Propofol (Diprivan) 1,000 mg in 100 mls @ 0 mls/hr IVCONT .Q0M [facility]; Protocol Last Admin: 12/08/24 05:24 Dose: 50 mcg/kg/min, 25.86 mls/hr Documented By: REYNA Norepinephrine Bitartrate (Levophed) 8 mg in 250 mls @ 0 mls/hr IVCONT .Q0M [facility]GIN[facility]; Protocol Last Admin: 12/08/24 01:37 Dose: 0.2 mcg/kg/min, 32.33 mls/hr Documented By: REYNA Fluconazole (Diflucan) 200 mg in 100 mls @ 100 mls/hr IV Q24H [facility] Last Infusion: 12/07/24 23:42 Dose: Infused Documented By: REYNA Fentanyl (Sublimaze/Ns) 1,000 mcg in 100 mls @ 0 mls/hr IVCONT .Q0M [facility]; Protocol Last Admin: 12/08/24 01:33 Dose: 100 mcg/hr, 10 mls/hr Documented By: REYNA Nutrition (Parenteral) (Parenteral Nutrition) 1,440 mls @ 60 mls/hr IV .Q24H [facility]; Protocol Stop: 12/08/24 20:59 Last Admin: 12/07/24 21:16 Dose: 60 mls/hr Documented By: REYNA Amiodarone HCl 900 mg/ Sodium (Chloride) 518 mls @ 34.533 mls/hr IVCONT .Q15H1M [facility]; Protocol Last Admin: 12/08/24 07:25 Dose: Not Given Documented By: JUWAN Non-Admin Reason: IV Running Vancomycin HCl 1,500 mg/ (Sodium Chloride) 500 mls @ 333.333 mls/hr IV Q12H [facility] Last Infusion: 12/08/24 04:42 Dose: Infused Documented By: REYNA Albumin Human (Kedbumin 25 %) 50 mls @ 100 mls/hr IV Q30M [facility] Stop: 12/08/24 07:59 Last Admin: 12/08/24 06:59 Dose: 100 mls/hr Documented By: REYNA Potassium Phosphate (Kphos) 15 mmol in 250 mls @ 62.5 mls/hr IV Q4H [facility] Stop: 12/08/24 13:59 Last Admin: 12/08/24 06:17 Dose: 62.5 mls/hr Documented By: REYNA Insulin Human Lispro (Insulin Lispro 100 Unit/Ml 3 Ml Vial) 0 unit SUBCUT Q6H [facility]; Protocol Last Admin: 12/08/24 06:32 Dose: 4 unit Documented By: REYNA Magnesium Hydroxide (Milk Of Magnesia 30 Ml Oral.Susp) 30 ml PO DAILY PRN PRN Reason: Constipation Melatonin (Melatonin 3 Mg Tablet) 6 mg PO BEDTIME PRN PRN Reason: Insomnia Naloxone HCl (Naloxone Hcl 0.4 Mg/Ml Vial) 0.2 mg IVPUSH Q2M PRN PRN Reason: Excessive sedation or RR < 8 Pantoprazole Sodium (Pantoprazole Sodium 40 Mg/10 Ml Vial) 40 mg IVPUSH BID@0630,1630 [facility] Last Admin: 12/08/24 05:32 Dose: 40 mg Documented By: REYNA Pharmacy Consult (Consult Rx Vancomycin Dosing) 1 each MISCELLANE DAILY PRN PRN Reason: Consult order Sodium Chloride (0.9 % Sodium Chloride Flush 3 Ml Syringe) 3 ml IVFLUSH QSHIFT [facility] Last Admin: 12/08/24 07:26 Dose: 3 ml Documented By: JUWAN <Amy Alaniz PA-C - Last Filed: 12/08/24 07:33> Labs CBC & Chem 7: 12/08/24 04:28 12/08/24 04:28 <Amy Alaniz PA-C - Last Filed: 12/08/24 07:33> Labs: Laboratory Results - last 24 hr 12/05/24 12/07/24 12/07/24 18:20 10:55 13:05 MCV 79.4 L MCH 24.4 L MCHC 30.8 L RDW 17.1 H Plt Count 198 MPV 10.0 Immature Gran % (Auto) Cancelled Neut % (Auto) Cancelled Lymph % (Auto) Cancelled [place] % (Auto) Cancelled Eos % (Auto) Cancelled Baso % (Auto) Cancelled Lymph # (Auto) Cancelled [place] # (Auto) Cancelled Eos # (Auto) Cancelled Baso # (Auto) Cancelled Abs Immat Gran (auto) Cancelled Absolute Neuts (auto) Cancelled Absolute Nucleated RBC 0.000 Nucleated RBC % (auto) 0.0 Neutrophils % (Manual) 78 H Band Neutrophils % 13 H Lymphocytes % (Manual) 3 L Monocytes % (Manual) 1 L Eosinophils % (Manual) 5 H Abs Neuts (Manual) 6.4 Lymphocytes # (Manual) 0.2 L Monocytes # (Manual) 0.1 Eosinophils # (Manual) 0.4 Toxic Granulation Dohle Bodies PRESENT Platelet Estimate NORMAL Plt Morphology Comment NORMAL RBC Morphology NOTED Hypochromasia 1+ (5-14) Microcytosis [place] Cells 2+ (3-5) Schistocytes VBG pH VBG pCO2 VBG pO2 VBG HCO3 VBG O2 Saturation VBG Base Excess Anion Gap Estim Creat Clear Calc Estimated GFR POC Glucose 164 H Random Glucose Calcium Phosphorus Magnesium Total Bilirubin AST ALT Alkaline Phosphatase Total Protein Albumin Triglycerides Blood Type O Positive Antibody Screen NEGATIVE Crossmatch See Detail 12/07/24 12/07/24 12/08/24 17:01 23:53 04:28 MCV 78.0 L MCH 23.9 L MCHC 30.7 L RDW 17.2 H Plt Count 194 MPV 10.4 Immature Gran % (Auto) Cancelled Neut % (Auto) Cancelled Lymph % (Auto) Cancelled [place] % (Auto) Cancelled Eos % (Auto) Cancelled Baso % (Auto) Cancelled Lymph # (Auto) Cancelled [place] # (Auto) Cancelled Eos # (Auto) Cancelled Baso # (Auto) Cancelled Abs Immat Gran (auto) Cancelled Absolute Neuts (auto) Cancelled Absolute Nucleated RBC 0.000 Nucleated RBC % (auto) 0.0 Neutrophils % (Manual) 81 H Band Neutrophils % 8 H Lymphocytes % (Manual) 3 L Monocytes % (Manual) 1 L Eosinophils % (Manual) 7 H Abs Neuts (Manual) 6.9 Lymphocytes # (Manual) 0.2 L Monocytes # (Manual) 0.1 Eosinophils # (Manual) 0.5 H Toxic Granulation PRESENT Dohle Bodies Platelet Estimate NORMAL Plt Morphology Comment NORMAL RBC Morphology NOTED Hypochromasia Microcytosis 1+ (5-14) [place] Cells 2+ (3-5) Schistocytes 1+ (0-2) VBG pH VBG pCO2 VBG pO2 VBG HCO3 VBG O2 Saturation VBG Base Excess Anion Gap 10 L Estim Creat Clear Calc 132.6 Estimated GFR > 60 POC Glucose 156 H 191 H Random Glucose 230 H Calcium 8.1 L Phosphorus 1.7 L Magnesium 2.3 Total Bilirubin 0.5 AST 24 ALT 8 Alkaline Phosphatase 53 Total Protein 4.9 L Albumin 2.8 L Triglycerides 236 H Blood Type Antibody Screen Crossmatch 12/08/24 12/08/24 04:29 06:29 MCV MCH MCHC RDW Plt Count MPV Immature Gran % (Auto) Neut % (Auto) Lymph % (Auto) [place] % (Auto) Eos % (Auto) Baso % (Auto) Lymph # (Auto) [place] # (Auto) Eos # (Auto) Baso # (Auto) Abs Immat Gran (auto) Absolute Neuts (auto) Absolute Nucleated RBC Nucleated RBC % (auto) Neutrophils % (Manual) Band Neutrophils % Lymphocytes % (Manual) Monocytes % (Manual) Eosinophils % (Manual) Abs Neuts (Manual) Lymphocytes # (Manual) Monocytes # (Manual) Eosinophils # (Manual) Toxic Granulation Dohle Bodies Platelet Estimate Plt Morphology Comment RBC Morphology Hypochromasia Microcytosis [place] Cells Schistocytes VBG pH 7.42 VBG pCO2 47 VBG pO2 50 VBG HCO3 31 H VBG O2 Saturation 76.0 VBG Base Excess 6.4 Anion Gap Estim Creat Clear Calc Estimated GFR POC Glucose 218 H Random Glucose Calcium Phosphorus Magnesium Total Bilirubin AST ALT Alkaline Phosphatase Total Protein Albumin Triglycerides Blood Type Antibody Screen Crossmatch <Amy Alaniz PA-C - Last Filed: 12/08/24 07:33> Microbiology Microbiology Results: Microbiology 12/05/24 16:52 Blood Culture - Preliminary Blood - Venous Gram negative dorian 12/05/24 16:52 Blood Culture - Preliminary Blood - Venous Gram negative dorian 12/05/24 20:15 Gram Stain - Final Peritoneal Fluid Routine Culture - Preliminary Gram negative dorian Anaerobic Culture - Preliminary Culture in progress. <Amy Alaniz PA-C - Last Filed: 12/08/24 07:33> Procedures Date of Service Date of Service: 12/08/24 <Amy Alaniz PA-C - Last Filed: 12/08/24 07:33> 12/08/24 <Bam Collazo MD - Last Filed: 12/08/24 08:37> Progress Note: A&P Assessment and plan (1) S/P colostomy: Status: Acute <Amy Alaniz PA-C - Last Filed: 12/08/24 07:33> Assessment and Plan: Remains on the ventilator On low-dose pressors No stoma output yet LEÓN drain serosanguineous Abdomen is soft Good urine output Had fever spike yesterday Packing was removed, dressings changed On TPN Continue current care in the ICU Seen and examined independently <Bam Collazo MD - Last Filed: 12/08/24 08:37> (2) Colon cancer: Status: Acute <Amy Alaniz PA-C - Last Filed: 12/08/24 07:33> (3) Perforated viscus: Status: Acute <Amy Alaniz PA-C - Last Filed: 12/08/24 07:33> Assessment and Plan: Status post laparotomy, resection of large perforated tumor, 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 Found to have profound fecal contamination and fecal peritonitis throughout the entire peritoneal cavity. Remains intubated in ICU on pressors, IVF. UOP adequate. Went into A fib yesterday converted on amiodarone drip. Remains in sinus. Febrile to 101.7. Labs reviewed this am. Drains in place with serosanguineous output, likely irrigation. High volume ok. Incision clean with wound jelani removed this AM. Await stoma function, likely will have prolonged ileus due to fecal peritonitis. NGT in place, moderate output. On TPN. Will remove bridge later. Cont IV antibiotics- vanco and diflucan added yesterday. Further restorative measures per ICU team. <JYOTI Madrigal Last Filed: 12/08/24 07:33> Time Spent With Patient Time: Total time managing care of this patient today ____ minutes. <Amy Alaniz PA-C - Last Filed: 12/08/24 07:33> Quality Stroke Does the patient have a stroke diagnosis?: No <Amy Alaniz PA-C - Last Filed: 12/08/24 07:33> VTE Prior VTE?: No <Amy Alaniz PA-C - Last Filed: 12/08/24 07:33> VTE Risk Level:: Medical - moderate - high <JYOTI Madrigal Last Filed: 12/08/24 07:33> VTE Device Contraindication: N/A - Device Ordered <JYOTI Madrigal Last Filed: 12/08/24 07:33> VTE Drug Contraindication: N/A - Med Ordered <JYOTI Madrigal Last Filed: 12/08/24 07:33>
[2024-12-08] MEDS: Chlorhexidine Gluc Oral Rinse 15 ML MOUTHWASH BUCCAL ×2 (07:33→20:05)
--- NOTE | 2024-12-08 08:38 | P.CDIM_ITS ---
PROVIDER RESPONSE TEXT: To clarify, the appropriate diagnosis supported by the clinical indicators: Other (explain): Dilutional anemia QUERY TEXT: PHYSICIAN'S DOCUMENTATION REQUEST Date of Query: 12/08/2024 07:50 AM EDT Patient Name: Paras Hughes Admit Date: 12/06/2024 Dear Saúl Young MD, A review of the medical record indicates additional documentation may be needed. Please review below and update the documentation accordingly. Clinical Indicators: LABS: H/H 7.0/23.0 2 Units PRBC ICU progress note 12/07/24 - Overnight with drop in hemoglobin, now receiving 2 units packed red blood cells. BP 82/52 S/P - Laparoscopic-assisted sigmoidectomy. Based on the above, could you clarify which of the following is the most likely type of anemia you are evaluating, treating, and/or monitoring? Acute blood loss anemia Acute blood loss anemia with baseline chronic anemia (specify type) Postoperative blood loss anemia possible, probable, suspected, cannot rule out etc. Other (explain) Clinically unable to determine (explain) Thank you, Eufemia Echols, CCS, CDIS Use of terms such as suspected, likely, concern for, or probable (associated with a specific diagnosis that is being evaluated, monitored, or treated as if it exists) are acceptable and can be coded in the inpatient setting, when documented at the time of discharge. Please use your independent medical judgment in providing your response. THIS QUERY IS PART OF THE PERMANENT MEDICAL RECORD
[2024-12-08] MEDS: Albumin Human 25 % 100 ML IV ×3 (08:56→20:05)
--- NOTE | 2024-12-08 10:06 | MHC.CLN ---
F/U DISCUSSED AT ROUNDS WITH REVIEWED LABS-NOTED TRIGS 236 DISCUSSED WITH PHARMACY RECOMMEND INCREASING TPN TO 80ML/HR TO PROVIDE 1363KCALS (2046KCALS WITH SEDATION; 28KCALS/KG), 288G DEXTROSE, 96G PROTEIN (1.3G/KG) HOLD LIPIDS TODAY REPLETE LYTES NEEDED
--- NOTE | 2024-12-08 10:12 | P.PNCC_ITS ---
Subjective Subjective Date of Service: 12/08/24 Interval History: 54-year-old gentleman with stage IV colon cancer on chemotherapy admitted on 12/05/2024 with abdominal pain secondary to sigmoid perforation with fecal peritonitis, now postoperative day 3 after laparotomy with sigmoid resection and placement of transverse colostomy, remains intubated after procedure. E.Coli bacteremia with polymicrobial peritonitis. No events overnight. Critical Care Time (minutes): 60 Physical Exam 2 Vital Signs: Vital Signs: Last Vital Signs Temp 101.7 F H 12/08/24 10:00 Pulse 75 12/08/24 10:00 Resp 94 H 12/08/24 10:00 BP 119/71 12/08/24 10:00 Pulse Ox 94 12/08/24 10:00 O2 Del Method Mechanical Ventil ation 12/08/24 10:00 FiO2 25 12/08/24 10:00 BMI result Body Mass Index 33.7 Const: General: no acute distress and other (Sedated on ventilatory support) Eyes: Sclerae: sclerae normal EOM: EOMs intact bilaterally Neck: Neck: Yes no lymphadenopathy, Yes trachea midline and Yes supple Resp: Auscultation: clear to auscultation bilaterally Cardio: Rate: regular rate Rhythm: regular rhythm Heart sounds: no gallops, no murmurs and no rubs GI: Other: Ostomy with small amount of serosanguineous output, increased otput in 1/2 LEÓN drains, NGT with greater 500 cc overnight output Palpation (GI): Soft to palpation Auscultation: Hypoactive bowel sounds present Extrem: General: Yes no pedal edema, No clubbing and No cyanosis Objective Data Labs 12/08/24 04:28 12/08/24 04:28 Labs: Laboratory Results - last 24 hr 12/05/24 12/07/24 12/07/24 18:20 10:55 13:05 WBC 7.0 RBC 3.60 L D Hgb 8.8 L D Hct 28.6 L D MCV 79.4 L MCH 24.4 L MCHC 30.8 L RDW 17.1 H Plt Count 198 MPV 10.0 Immature Gran % (Auto) Cancelled Neut % (Auto) Cancelled Lymph % (Auto) Cancelled [place] % (Auto) Cancelled Eos % (Auto) Cancelled Baso % (Auto) Cancelled Lymph # (Auto) Cancelled [place] # (Auto) Cancelled Eos # (Auto) Cancelled Baso # (Auto) Cancelled Abs Immat Gran (auto) Cancelled Absolute Neuts (auto) Cancelled Absolute Nucleated RBC 0.000 Nucleated RBC % (auto) 0.0 Neutrophils % (Manual) 78 H Band Neutrophils % 13 H Lymphocytes % (Manual) 3 L Monocytes % (Manual) 1 L Eosinophils % (Manual) 5 H Abs Neuts (Manual) 6.4 Lymphocytes # (Manual) 0.2 L Monocytes # (Manual) 0.1 Eosinophils # (Manual) 0.4 Toxic Granulation Dohle Bodies PRESENT Platelet Estimate NORMAL Plt Morphology Comment NORMAL RBC Morphology NOTED Hypochromasia 1+ (5-14) Microcytosis [place] Cells 2+ (3-5) Schistocytes VBG pH VBG pCO2 VBG pO2 VBG HCO3 VBG O2 Saturation VBG Base Excess Sodium Potassium Chloride Carbon Dioxide Anion Gap BUN Creatinine Estim Creat Clear Calc Estimated GFR POC Glucose 164 H Random Glucose Calcium Phosphorus Magnesium Total Bilirubin AST ALT Alkaline Phosphatase Total Protein Albumin Triglycerides Crossmatch See Detail 12/07/24 12/07/24 12/08/24 17:01 23:53 04:28 WBC 7.8 RBC 3.55 L Hgb 8.5 L Hct 27.7 L MCV 78.0 L MCH 23.9 L MCHC 30.7 L RDW 17.2 H Plt Count 194 MPV 10.4 Immature Gran % (Auto) Cancelled Neut % (Auto) Cancelled Lymph % (Auto) Cancelled [place] % (Auto) Cancelled Eos % (Auto) Cancelled Baso % (Auto) Cancelled Lymph # (Auto) Cancelled [place] # (Auto) Cancelled Eos # (Auto) Cancelled Baso # (Auto) Cancelled Abs Immat Gran (auto) Cancelled Absolute Neuts (auto) Cancelled Absolute Nucleated RBC 0.000 Nucleated RBC % (auto) 0.0 Neutrophils % (Manual) 81 H Band Neutrophils % 8 H Lymphocytes % (Manual) 3 L Monocytes % (Manual) 1 L Eosinophils % (Manual) 7 H Abs Neuts (Manual) 6.9 Lymphocytes # (Manual) 0.2 L Monocytes # (Manual) 0.1 Eosinophils # (Manual) 0.5 H Toxic Granulation PRESENT Dohle Bodies Platelet Estimate NORMAL Plt Morphology Comment NORMAL RBC Morphology NOTED Hypochromasia Microcytosis 1+ (5-14) [place] Cells 2+ (3-5) Schistocytes 1+ (0-2) VBG pH VBG pCO2 VBG pO2 VBG HCO3 VBG O2 Saturation VBG Base Excess Sodium 146 H Potassium 3.6 Chloride 113 H Carbon Dioxide 27 Anion Gap 10 L BUN 10 Creatinine 0.67 Estim Creat Clear Calc 132.6 Estimated GFR > 60 POC Glucose 156 H 191 H Random Glucose 230 H Calcium 8.1 L Phosphorus 1.7 L Magnesium 2.3 Total Bilirubin 0.5 AST 24 ALT 8 Alkaline Phosphatase 53 Total Protein 4.9 L Albumin 2.8 L Triglycerides 236 H Crossmatch 12/08/24 12/08/24 04:29 06:29 WBC RBC Hgb Hct MCV MCH MCHC RDW Plt Count MPV Immature Gran % (Auto) Neut % (Auto) Lymph % (Auto) [place] % (Auto) Eos % (Auto) Baso % (Auto) Lymph # (Auto) [place] # (Auto) Eos # (Auto) Baso # (Auto) Abs Immat Gran (auto) Absolute Neuts (auto) Absolute Nucleated RBC Nucleated RBC % (auto) Neutrophils % (Manual) Band Neutrophils % Lymphocytes % (Manual) Monocytes % (Manual) Eosinophils % (Manual) Abs Neuts (Manual) Lymphocytes # (Manual) Monocytes # (Manual) Eosinophils # (Manual) Toxic Granulation Dohle Bodies Platelet Estimate Plt Morphology Comment RBC Morphology Hypochromasia Microcytosis [place] Cells Schistocytes VBG pH 7.42 VBG pCO2 47 VBG pO2 50 VBG HCO3 31 H VBG O2 Saturation 76.0 VBG Base Excess 6.4 Sodium Potassium Chloride Carbon Dioxide Anion Gap BUN Creatinine Estim Creat Clear Calc Estimated GFR POC Glucose 218 H Random Glucose Calcium Phosphorus Magnesium Total Bilirubin AST ALT Alkaline Phosphatase Total Protein Albumin Triglycerides Crossmatch Microbiology Microbiology Results: Microbiology 12/05/24 16:52 Blood - Venous Blood Culture - Preliminary Escherichia coli 12/05/24 16:52 Blood - Venous Blood Culture - Preliminary Escherichia coli 12/05/24 20:15 Peritoneal Fluid Gram Stain - Final 12/05/24 20:15 Peritoneal Fluid Routine Culture - Preliminary Klebsiella pneumoniae Escherichia coli 12/05/24 20:15 Peritoneal Fluid Anaerobic Culture - Preliminary Culture in progress. Progress Note: A&P Assessment and plan (1) Atrial fibrillation with rapid ventricular response: Status: Resolved (2) Acute hypoxemic respiratory failure: Status: Acute (3) Colon cancer: Status: Acute (4) Perforated viscus: Status: Acute (5) Status post laparoscopic-assisted sigmoidectomy: Status: Acute (6) E coli bacteremia: Status: Acute (7) Peritonitis: Status: Acute Plan Assessment: 54-year-old gentleman postoperative day 3 for sigmoidectomy and transverse colostomy for perforated sigmoid cancer remains intubated postop Plan: Neuro: No acute issues. Cardiac: AFib with RVR resolved with amiodarone drip. Pulmonary: Acute hypoxic respiratory failure, remains intubated postop, continue to titrate off ventilatory support as tolerated. Renal: No acute issues. Endo: No acute issues. GI: Postoperative day 3 after sigmoidectomy with transverse colostomy for perforated sigmoid cancer. General surgery service care appreciated. ID: Empiric coverage for polymicrobial peritonitis with E coli bacteremia. Heme/Onc: No acute issues. Psych: No acute issues. Miscellaneous: No acute issues. Prophylaxis: Pneumatic compression, famotidine Diet: TPN Critical care time spent: 60 minutes Quality Stroke Does the patient have a stroke diagnosis?: No VTE Prior VTE?: No VTE Risk Level:: Medical - moderate - high VTE Device Contraindication: N/A - Device Ordered VTE Drug Contraindication: N/A - Med Ordered
[2024-12-08 11:52] LABS: Glucose, Whole Blood 191 mg/dL (60-115)
--- NOTE | 2024-12-08 14:44 | MHC.CM.PN ---
Pt remains intubated following exp. lap w/new colostomy: Started on Amnio infusion for Afib: no plans to vent wean. Will refer to SNF as pt will have complex medical needs once extubated including tx for metastatic dz, new ostomy, decondioning. CM to follow
[2024-12-08 17:52] LABS: Glucose, Whole Blood 201 mg/dL (60-115)
--- NOTE | 2024-12-08 18:38 | PC.NURSE ---
Assumed care at 0700. Pt remains intubated. Pt on sedative and cardiac drips. Per MD, no plan for sedation vacation or PSV trials today. Temps elevated. Per MD, no intervention until temp is > 103. Max temp was 102.2. At approx 1415, pt?s HR lowered to the 50s, BP spiked to 160s systolic, and o2 sat sunk to 85%. All resolved shortly afterwards, MD made aware. Pt repositioned q2hr as tolerated. Fall/safety precautions in place. See MAR and assessments for further details.
[2024-12-08] MEDS: Furosemide 40 MG/4 ML VIAL IVPUSH (20:04)
[2024-12-08] MEDS: Parenteral Nutrition 1,920 ML 80 ML IV (21:19)
[2024-12-08 23:56] LABS: Glucose, Whole Blood 220 mg/dL (60-115)
[2024-12-09] VITALS (42 sets, daily range): BP systolic 79–116; BP diastolic 51–79; PULSE 70–123; RESP 18–20; TEMP 34.8–39.2; O2SAT 92–96; BMI 32.9
[2024-12-09] MEDS: Albumin Human 25 % 100 ML IV (01:57)
--- NOTE | 2024-12-09 03:33 | PC.NURSE ---
CARE ASSUMED 7PM..REMAINS INTUBATED/VCV VENT SUPPORT..SEDATED WITH PROPOFOL AND FENANYL DRIPS PER AUG..SUCTIONED SMALL AMOUNT THICK WHITE SPUTUM VIA ETT...AMIODARONE DRIP 0.5 MG/MIN...NSR RARE PAC'S AT SHIFT CHANGE....PATIENT WITH JVD AT SHIFT CHANGE..NEW SCROTAL/PENILE/THIGH AND HIP EDEMA PRESENT..FLUID BALANCE APPROX 10 LITERS (+)...LASIX 40MG IV X1 PER PROVIDER..DIURESING LARGE AMOUNT PALE YELLOW URINE AND DECREASED JVD...CONVERTED FROM NSR TO ATRIAL FIB HR 110'S AT APPROX 9PM..BP/SAO2 STABLE WITH LEVOPHED DRIP UNCHANGED..PROVIDER AWARE...NO RX CHANGES FOR ATRIAL FIB LONG HR < THAN 130-140 PER PROVIDER..AMIODARONE DRIP MAINTAINED 0.5 MG/MIN..CURRENTLY ATRIAL FIB HR 90'S...LEFT LEÓN ABDOMIANL DRAIN CONTINUES WITH LARGE AMOUNT SEROUS DRAINAGE..RIGHT LEÓN DRAIN WITH SMALL AMOUNT SEROSANGUINOUS DRAINAGE..NG-TUBE WITH MINIMAL BILIOUS DRAINAGE...ABDOMEN SOFT AND ESSENTIALLY SILENT..COLOSTOMY WITH SCANT SEROSANGUINOUS DRAINAGE
[2024-12-09] MEDS: Furosemide 40 MG/4 ML VIAL IVPUSH ×2 (05:33→20:05)
[2024-12-09 05:49] LABS: VBG HCO3 27 mmol/L (22-26); VBG O2 % Saturation 100.0 %
[2024-12-09 05:58] LABS: Glucose, Whole Blood 216 mg/dL (60-115)
[2024-12-09 06:07] LABS: Venous Blood Gas Refer to POC result
[2024-12-09 06:19] LABS: Hematocrit 28.7 % (42.0-52.0); Hemoglobin 8.6 g/dl (14.0-18.0); Mean Corpuscular HGB Conc 30.0 g/dl (31.0-36.0); Mean Corpuscular Hemoglobin 24.2 pg (27.0-33.0); Mean Corpuscular Volume 80.6 fL (80.0-98.0); NRBC Abs Auto 0.000 X10*3/uL (0.0-0.012); NRBC Pct Auto 0.0 /100WBC (0.0-0.2); Platelet Count 132 X10*3/uL (160-400); Red Blood Count 3.56 X10*6/uL (4.60-5.80); White Blood Count 3.9 X10*3/uL (4.8-10.8)
[2024-12-09 06:20] LABS: Alanine Aminotransferase 7 U/L (0-40); Albumin Level 3.7 g/dL (3.5-5.0); Alkaline Phosphatase 43 U/L (39-117); Anion Gap 13 (12-20); Aspartate Amino Transferase 19 U/L (5-37); Blood Urea Nitrogen 11 mg/dL (9-16); Calcium 8.3 mg/dL (8.4-10.2); Carbon Dioxide 24 mmol/L (22-29); Chloride 113 mmol/L (96-108); Creatinine Clr Calc Pharmacy 114.0; Estimated Glomerular Filt Rate > 60; Magnesium 2.2 mg/dL (1.6-2.6); Potassium 3.7 mmol/L (3.3-5.1); Sodium 146 mmol/L (135-145); Total Protein 5.4 g/dL (6.5-8.0)
[2024-12-09] MEDS: fentaNYL citrate/NS 1,000 MCG/100 ML PLAST..BAG 10 MCG IVCONT ×2 (06:27→17:01)
--- NOTE | 2024-12-09 07:33 | P.PNGS_ITS ---
Subjective Subjective Date of Service: 12/09/24 <Amy Alaniz PA-C - Last Filed: 12/09/24 08:12> 12/09/24 <Bam Collazo MD - Last Filed: 12/09/24 07:47> Interval history: Received IV lasix x 2 last night. Back in a fib, rate controlled. Remains febrile. <JYOTI Madrigal Last Filed: 12/09/24 08:12> Physical Exam 2 Vital Signs: Vital Signs: Last Vital Signs Temp 101.7 F H 12/09/24 07:00 Pulse 104 H 12/09/24 07:00 Resp 18 12/09/24 07:00 BP 106/59 L 12/09/24 07:00 Pulse Ox 93 12/09/24 07:20 O2 Del Method Mechanical Ventil ation 12/09/24 07:00 FiO2 30 12/09/24 07:20 BMI result Body Mass Index 32.9 <JYOTI Madrigal Last Filed: 12/09/24 08:12> Resp: Other: intubated on vent <Amy Alaniz PA-C - Last Filed: 12/09/24 08:12> GI: Other: abdominal distention slightly increased this am, ? fluid remains soft ostomy remains viable appearing slightly edematous, bridge removed LEÓN drain serosanguineous incision with seropurulent appearing ddrainage <Amy Alaniz PA-C - Last Filed: 12/09/24 08:12> Extrem: Other: anasarca <Amy Alaniz PA-C - Last Filed: 12/09/24 08:12> Objective Data Active Medications Chlorhexidine Gluconate (Chlorhexidine Gluc Oral Rinse 15 Ml Mouthwash) 15 ml BUCCAL BID [facility] Last Admin: 12/08/24 20:05 Dose: 15 ml Documented By: REYNA Dextrose (Dextrose 50 % 25 Gm/50 Ml Syringe) 25 gm IVPUSH Q15M PRN; Protocol PRN Reason: per Hypoglycemia Standing Ord. Glucose (Glucose Gel 15 Gm Gel..Gram.) 15 gm PO Q15M PRN; Protocol PRN Reason: per Hypoglycemia Standing Ord. Piperacillin Sod/Tazobactam (Sod 3.375 gm/ Sodium Chloride) 50 mls @ 100 mls/hr IV Q6H [facility] Last Infusion: 12/09/24 06:26 Dose: Infused Documented By: REYNA Propofol (Diprivan) 1,000 mg in 100 mls @ 0 mls/hr IVCONT .Q0M [facility]; Protocol Last Admin: 12/09/24 05:41 Dose: 50 mcg/kg/min, 25.86 mls/hr Documented By: REYNA Norepinephrine Bitartrate (Levophed) 8 mg in 250 mls @ 0 mls/hr IVCONT .Q0M [facility]; Protocol Last Admin: 12/09/24 03:09 Dose: 0.16 mcg/kg/min, 25.86 mls/hr Documented By: REYNA Fluconazole (Diflucan) 200 mg in 100 mls @ 100 mls/hr IV Q24H [facility] Last Infusion: 12/08/24 23:43 Dose: Infused Documented By: REYNA Fentanyl (Sublimaze/Ns) 1,000 mcg in 100 mls @ 0 mls/hr IVCONT .Q0M [facility]; Protocol Last Admin: 12/09/24 06:27 Dose: 100 mcg/hr, 10 mls/hr Documented By: REYNA Amiodarone HCl 900 mg/ Sodium (Chloride) 518 mls @ 34.533 mls/hr IVCONT .Q15H1M [facility]; Protocol Last Admin: 12/08/24 15:16 Dose: 0.5 mg/min, 17.27 mls/hr Documented By: JUWAN Vancomycin HCl 1,500 mg/ (Sodium Chloride) 500 mls @ 333.333 mls/hr IV Q12H [facility] Last Infusion: 12/09/24 04:54 Dose: Infused Documented By: REYNA Nutrition (Parenteral) (Parenteral Nutrition) 1,920 mls @ 80 mls/hr IV .Q24H [facility]; Protocol Stop: 12/09/24 20:59 Last Admin: 12/08/24 21:19 Dose: 80 mls/hr Documented By: REYNA Insulin Human Lispro (Insulin Lispro 100 Unit/Ml 3 Ml Vial) 0 unit SUBCUT Q6H [facility]; Protocol Last Admin: 12/09/24 05:56 Dose: 4 unit Documented By: REYNA Magnesium Hydroxide (Milk Of Magnesia 30 Ml Oral.Susp) 30 ml PO DAILY PRN PRN Reason: Constipation Melatonin (Melatonin 3 Mg Tablet) 6 mg PO BEDTIME PRN PRN Reason: Insomnia Naloxone HCl (Naloxone Hcl 0.4 Mg/Ml Vial) 0.2 mg IVPUSH Q2M PRN PRN Reason: Excessive sedation or RR < 8 Pantoprazole Sodium (Pantoprazole Sodium 40 Mg/10 Ml Vial) 40 mg IVPUSH BID@0630,1630 [facility] Last Admin: 12/09/24 05:33 Dose: 40 mg Documented By: REYNA Pharmacy Consult (Consult Rx Vancomycin Dosing) 1 each MISCELLANE DAILY PRN PRN Reason: Consult order Sodium Chloride (0.9 % Sodium Chloride Flush 3 Ml Syringe) 3 ml IVFLUSH QSHIFT [facility] Last Admin: 12/08/24 23:17 Dose: 3 ml Documented By: REYNA <Amy Alaniz PA-C - Last Filed: 12/09/24 08:12> Labs CBC & Chem 7: 12/09/24 05:25 12/09/24 05:25 <Amy Alaniz PA-C - Last Filed: 12/09/24 08:12> Labs: Laboratory Results - last 24 hr 12/08/24 12/08/24 12/08/24 11:48 14:30 17:48 MCV MCH MCHC RDW Plt Count MPV Immature Gran % (Auto) Neut % (Auto) Lymph % (Auto) [place] % (Auto) Eos % (Auto) Baso % (Auto) Lymph # (Auto) [place] # (Auto) Eos # (Auto) Baso # (Auto) Abs Immat Gran (auto) Absolute Neuts (auto) Absolute Nucleated RBC Nucleated RBC % (auto) VBG pH VBG pCO2 VBG pO2 VBG HCO3 VBG O2 Saturation VBG Base Excess Anion Gap Estim Creat Clear Calc Estimated GFR POC Glucose 191 H 201 H Random Glucose Calcium Phosphorus Magnesium Total Bilirubin AST ALT Alkaline Phosphatase Total Protein Albumin Random Vancomycin 9.3 L 12/08/24 12/09/24 12/09/24 23:52 05:25 05:44 MCV 80.6 MCH 24.2 L MCHC 30.0 L RDW 18.2 H Plt Count 132 L D MPV 10.9 Immature Gran % (Auto) Cancelled Neut % (Auto) Cancelled Lymph % (Auto) Cancelled [place] % (Auto) Cancelled Eos % (Auto) Cancelled Baso % (Auto) Cancelled Lymph # (Auto) Cancelled [place] # (Auto) Cancelled Eos # (Auto) Cancelled Baso # (Auto) Cancelled Abs Immat Gran (auto) Cancelled Absolute Neuts (auto) Cancelled Absolute Nucleated RBC 0.000 Nucleated RBC % (auto) 0.0 VBG pH 7.47 H VBG pCO2 37 VBG pO2 165 VBG HCO3 27 H VBG O2 Saturation 100.0 VBG Base Excess 3.9 Anion Gap 13 Estim Creat Clear Calc 114.0 Estimated GFR > 60 POC Glucose 220 H Random Glucose 230 H Calcium 8.3 L Phosphorus 2.9 Magnesium 2.2 Total Bilirubin 0.7 AST 19 ALT 7 Alkaline Phosphatase 43 Total Protein 5.4 L Albumin 3.7 Random Vancomycin 12/09/24 05:54 MCV MCH MCHC RDW Plt Count MPV Immature Gran % (Auto) Neut % (Auto) Lymph % (Auto) [place] % (Auto) Eos % (Auto) Baso % (Auto) Lymph # (Auto) [place] # (Auto) Eos # (Auto) Baso # (Auto) Abs Immat Gran (auto) Absolute Neuts (auto) Absolute Nucleated RBC Nucleated RBC % (auto) VBG pH VBG pCO2 VBG pO2 VBG HCO3 VBG O2 Saturation VBG Base Excess Anion Gap Estim Creat Clear Calc Estimated GFR POC Glucose 216 H Random Glucose Calcium Phosphorus Magnesium Total Bilirubin AST ALT Alkaline Phosphatase Total Protein Albumin Random Vancomycin <Amy Alaniz PA-C - Last Filed: 12/09/24 08:12> Microbiology Microbiology Results: Microbiology 12/05/24 16:52 Blood Culture - Preliminary Blood - Venous Escherichia coli 12/05/24 16:52 Blood Culture - Preliminary Blood - Venous Escherichia coli 12/05/24 20:15 Gram Stain - Final Peritoneal Fluid Routine Culture - Preliminary Klebsiella pneumoniae Escherichia coli Anaerobic Culture - Preliminary Culture in progress. <Amy Alaniz PA-C - Last Filed: 12/09/24 08:12> Procedures Date of Service Date of Service: 12/09/24 <Amy Alaniz PA-C - Last Filed: 12/09/24 08:12> 06/25/25 <Bam Collazo MD - Last Filed: 12/09/24 07:47> Progress Note: A&P Assessment and plan (1) S/P colostomy: Status: Acute <Amy Alaniz PA-C - Last Filed: 12/09/24 08:12> Assessment and Plan: No significant changes overnight No significant output from the stoma LEÓN drains serosanguineous Good urine output Abdomen is soft, Stoma viable Stoma bridge removed Incision clean Remains on pressors but at lower dose Has live maggots around his endotracheal tube - uncertain as to how this has happened Continue ICU care Family updated Seen and examined independently <Bam Collazo MD - Last Filed: 12/09/24 07:47> (2) Colonic mass: Status: Acute <Amy Alaniz PA-C - Last Filed: 12/09/24 08:12> Assessment and Plan: Status post laparotomy, resection of large perforated tumor, 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 Found to have profound fecal contamination and fecal peritonitis throughout the entire peritoneal cavity. Remains intubated in ICU on pressors, IVF. UOP adequate. Went into A fib yesterday converted on amiodarone drip. Remains febrile. Drains in place with serosanguineous output, likely irrigation. High volume ok. Incision with some seropurulent drainage Await stoma function, likely will have prolonged ileus due to fecal peritonitis. NGT in place, low output. On TPN. Cont IV antibiotics- vanco and diflucan added yesterday. Further restorative measures per ICU team. <Amy Alaniz PA-C - Last Filed: 12/09/24 08:12> Time Spent With Patient Time: Total time managing care of this patient today ____ minutes. <Amy Alaniz PA-C - Last Filed: 12/09/24 08:12> Quality Stroke Does the patient have a stroke diagnosis?: No <JYOTI Madrigal Last Filed: 12/09/24 08:12> VTE Prior VTE?: No <JYOTI Madrigal Last Filed: 12/09/24 08:12> VTE Risk Level:: Medical - moderate - high <Amy Alaniz PA-C - Last Filed: 12/09/24 08:12> VTE Device Contraindication: N/A - Device Ordered <JYOTI Madrigal Last Filed: 12/09/24 08:12> VTE Drug Contraindication: N/A - Med Ordered <Amy Alaniz PA-C - Last Filed: 12/09/24 08:12>
[2024-12-09] MEDS: 0.9 % Sodium Chloride Flush 3 ML SYRINGE IVFLUSH ×3 (08:57→22:40)
[2024-12-09] MEDS: Chlorhexidine Gluc Oral Rinse 15 ML MOUTHWASH BUCCAL ×3 (08:57→18:05)
[2024-12-09 09:03] LABS: Band Neutrophils Percent 3 % (3-5); Eosinophils Absolute Manual 0.4 X10*3/uL (0.0-0.4); Eosinophils Percent Manual 9 % (0-4); Lymphocytes Absolute Manual 0.6 X10*3/uL (1.2-4.9); Lymphocytes Percent Manual 15 % (20-40); Monocytes Absolute Manual 0.3 X10*3/uL (0.1-1.2); Monocytes Percent Manual 8 % (2-11); Neutrophils Absolute Manual 2.7 X10*3/uL (2.0-8.3); Neutrophils Percent Manual 65 % (45-73)
[2024-12-09 09:06] LABS: Burr Cells 1+ (0-2) /OIF; Hypochromasia 1+ (5-14) /OIF; RBC Morphology NOTED
[2024-12-09 09:07] LABS: Dohle Bodies PRESENT
--- NOTE | 2024-12-09 09:15 | MHC.CLN ---
F/U REVIEWED LABS DISCUSSED WITH PHARMACY CONTINUE TPN AT 80ML/HR PROVIDES 1363KCALS (2046KCALS WITH SEDATION; 28KCALS/KG), 288G DEXTROSE, 96G PROTEIN (1.3G/KG) HOLD LIPIDS TODAY REPLETE LYTES NEEDED
--- NOTE | 2024-12-09 10:06 | PM.CCPN ---
Subjective Subjective Date of Service: 12/09/24 Interval History: 54-year-old gentleman with stage IV colon cancer on chemotherapy admitted on 12/05/2024 with abdominal pain secondary to sigmoid perforation with fecal peritonitis, now postoperative day 4 after laparotomy with sigmoid resection and placement of transverse colostomy, remains intubated after procedure. E.Coli bacteremia with polymicrobial peritonitis. No events overnight. This a.m. vermiform larvae noted along the ET tube. Critical Care Time (minutes): 60 Physical Exam Vital Signs: Vital Signs: Last Vital Signs Temp 102.4 F H 12/09/24 08:59 Pulse 115 H 12/09/24 09:44 Resp 18 12/09/24 08:59 BP 79/52 L 12/09/24 09:44 Pulse Ox 94 12/09/24 08:59 O2 Del Method Mechanical Ventil ation 12/09/24 08:59 FiO2 30 12/09/24 08:59 BMI result Body Mass Index 32.9 Const: General: no acute distress and other (Sedated on ventilatory support) Eyes: Sclerae: sclerae normal EOM: EOMs intact bilaterally Neck: Neck: Yes no lymphadenopathy, Yes trachea midline and Yes supple Resp: Auscultation: clear to auscultation bilaterally Cardio: Rate: tachycardic Rhythm: abnormal rhythm irregularly irregular Heart sounds: no gallops, no murmurs and no rubs GI: Other: Ostomy with minimal serosanguineous output Palpation (GI): Soft to palpation and Other GI palpation findings present ( Nontender) Auscultation: Hypoactive bowel sounds present Extrem: General: Yes no pedal edema, No clubbing and No cyanosis Objective Data Labs 12/09/24 05:25 12/09/24 05:25 Labs: Laboratory Results - last 24 hr 12/08/24 12/08/24 12/08/24 11:48 14:30 17:48 WBC RBC Hgb Hct MCV MCH MCHC RDW Plt Count MPV Immature Gran % (Auto) Neut % (Auto) Lymph % (Auto) [place] % (Auto) Eos % (Auto) Baso % (Auto) Lymph # (Auto) [place] # (Auto) Eos # (Auto) Baso # (Auto) Abs Immat Gran (auto) Absolute Neuts (auto) Absolute Nucleated RBC Nucleated RBC % (auto) Neutrophils % (Manual) Band Neutrophils % Lymphocytes % (Manual) Monocytes % (Manual) Eosinophils % (Manual) Abs Neuts (Manual) Lymphocytes # (Manual) Monocytes # (Manual) Eosinophils # (Manual) Dohle Bodies Platelet Estimate Plt Morphology Comment RBC Morphology Hypochromasia [place] Cells VBG pH VBG pCO2 VBG pO2 VBG HCO3 VBG O2 Saturation VBG Base Excess Sodium Potassium Chloride Carbon Dioxide Anion Gap BUN Creatinine Estim Creat Clear Calc Estimated GFR POC Glucose 191 H 201 H Random Glucose Calcium Phosphorus Magnesium Total Bilirubin AST ALT Alkaline Phosphatase Total Protein Albumin Random Vancomycin 9.3 L 12/08/24 12/09/24 12/09/24 23:52 05:25 05:44 WBC 3.9 L RBC 3.56 L Hgb 8.6 L Hct 28.7 L MCV 80.6 MCH 24.2 L MCHC 30.0 L RDW 18.2 H Plt Count 132 L D MPV 10.9 Immature Gran % (Auto) Cancelled Neut % (Auto) Cancelled Lymph % (Auto) Cancelled [place] % (Auto) Cancelled Eos % (Auto) Cancelled Baso % (Auto) Cancelled Lymph # (Auto) Cancelled [place] # (Auto) Cancelled Eos # (Auto) Cancelled Baso # (Auto) Cancelled Abs Immat Gran (auto) Cancelled Absolute Neuts (auto) Cancelled Absolute Nucleated RBC 0.000 Nucleated RBC % (auto) 0.0 Neutrophils % (Manual) 65 Band Neutrophils % 3 Lymphocytes % (Manual) 15 L Monocytes % (Manual) 8 Eosinophils % (Manual) 9 H Abs Neuts (Manual) 2.7 Lymphocytes # (Manual) 0.6 L Monocytes # (Manual) 0.3 Eosinophils # (Manual) 0.4 Dohle Bodies PRESENT Platelet Estimate SLIGHTLY DECREASED Plt Morphology Comment NORMAL RBC Morphology NOTED Hypochromasia 1+ (5-14) [place] Cells 1+ (0-2) VBG pH 7.47 H VBG pCO2 37 VBG pO2 165 VBG HCO3 27 H VBG O2 Saturation 100.0 VBG Base Excess 3.9 Sodium 146 H Potassium 3.7 Chloride 113 H Carbon Dioxide 24 Anion Gap 13 BUN 11 Creatinine 0.77 Estim Creat Clear Calc 114.0 Estimated GFR > 60 POC Glucose 220 H Random Glucose 230 H Calcium 8.3 L Phosphorus 2.9 Magnesium 2.2 Total Bilirubin 0.7 AST 19 ALT 7 Alkaline Phosphatase 43 Total Protein 5.4 L Albumin 3.7 Random Vancomycin 12/09/24 05:54 WBC RBC Hgb Hct MCV MCH MCHC RDW Plt Count MPV Immature Gran % (Auto) Neut % (Auto) Lymph % (Auto) [place] % (Auto) Eos % (Auto) Baso % (Auto) Lymph # (Auto) [place] # (Auto) Eos # (Auto) Baso # (Auto) Abs Immat Gran (auto) Absolute Neuts (auto) Absolute Nucleated RBC Nucleated RBC % (auto) Neutrophils % (Manual) Band Neutrophils % Lymphocytes % (Manual) Monocytes % (Manual) Eosinophils % (Manual) Abs Neuts (Manual) Lymphocytes # (Manual) Monocytes # (Manual) Eosinophils # (Manual) Dohle Bodies Platelet Estimate Plt Morphology Comment RBC Morphology Hypochromasia [place] Cells VBG pH VBG pCO2 VBG pO2 VBG HCO3 VBG O2 Saturation VBG Base Excess Sodium Potassium Chloride Carbon Dioxide Anion Gap BUN Creatinine Estim Creat Clear Calc Estimated GFR POC Glucose 216 H Random Glucose Calcium Phosphorus Magnesium Total Bilirubin AST ALT Alkaline Phosphatase Total Protein Albumin Random Vancomycin Microbiology Microbiology Results: Microbiology 12/05/24 16:52 Blood - Venous Blood Culture - Preliminary Escherichia coli 12/05/24 16:52 Blood - Venous Blood Culture - Preliminary Escherichia coli 12/05/24 20:15 Peritoneal Fluid Gram Stain - Final 12/05/24 20:15 Peritoneal Fluid Routine Culture - Preliminary Klebsiella pneumoniae Escherichia coli 12/05/24 20:15 Peritoneal Fluid Anaerobic Culture - Preliminary Culture in progress. Progress Note: A&P Assessment and plan (1) Perforated viscus: Status: Acute (2) Peritonitis: Status: Acute (3) Colon cancer: Status: Acute (4) E coli bacteremia: Status: Acute (5) Acute hypoxemic respiratory failure: Status: Acute Plan Assessment: 54-year-old gentleman postoperative day 4 for sigmoidectomy and transverse colostomy for perforated sigmoid cancer remains intubated postop Plan: Neuro: No acute issues. Cardiac: AFib with RVR, continue amiodarone drip. Pulmonary: Acute hypoxic respiratory failure, remains intubated postop, continue to titrate off ventilatory support as tolerated. Renal: No acute issues. Endo: No acute issues. GI: Postoperative day 4 after sigmoidectomy with transverse colostomy for perforated sigmoid cancer. General surgery service care appreciated. ID: Empiric coverage for polymicrobial peritonitis with E coli bacteremia. Yobaniiform larvae - unclear if helminithic versus myiasis. Sample sent for laboratory testing. Continues on empiric antibiotics and antifungal for underlying peritonitis, unable to administer enteral antihelminithic agent secondary to no return of bowel function after recent surgery. Heme/Onc: Rising eosinophilia can be secondary to helminithic versus myiasis process. Psych: No acute issues. Miscellaneous: No acute issues. Prophylaxis: Pneumatic compression, famotidine Diet: TPN Critical care time spent: 60 minutes Quality Stroke Does the patient have a stroke diagnosis?: No VTE Prior VTE?: No VTE Risk Level:: Medical - moderate - high VTE Device Contraindication: N/A - Device Ordered VTE Drug Contraindication: N/A - Med Ordered
[2024-12-09 11:36] LABS: Glucose, Whole Blood 227 mg/dL (60-115)
--- NOTE | 2024-12-09 15:54 | MHC.CM.PN ---
PT REMAINS IN ICU, POD#4 S/P LAPAROTOMY/SIGMOID RESECTION, ON VENTILATORY/PRESSOR SUPPORT. CM CONTINUES TO FOLLOW FOR DC PLAN.
--- NOTE | 2024-12-09 17:58 | PC.NURSE ---
Assumed care at 0700. Pt remains intubated on sedative and cardiac drips. Noted to be in afib with rate reaching the 130s. MD made aware. Surgical dressing changed by surgical PA; bridge removed from ostomy. Upon initial assessment, mobile white rice-sized organisms noted on outer surface of ET tube and bite block. Provider notified. Bite block removed with RT at bedside. Specimen collected. Specimen and bite block sent to lab/pathology for identification. Mouth care and copious irrigation with chlorhexidine and regular mouthwash provided. Follow-up assessments found no further evidence of organisms. Per MD, amio drip increased to 1 mg/min due to increasing heart rate. Pt converted to sinus at approx 1500. Per MD, amio to remain at 1 mg/min. Pt repositioned q2hr as tolerated. Fall/safety precautions in place. See MAR and assessments for further details.
[2024-12-09 18:07] LABS: Glucose, Whole Blood 266 mg/dL (60-115)
[2024-12-09] MEDS: Parenteral Nutrition 1,920 ML 80 ML IV (20:56)
[2024-12-09 23:44] LABS: Glucose, Whole Blood 275 mg/dL (60-115)
[2024-12-10] VITALS (38 sets, daily range): BP systolic 98–115; BP diastolic 51–66; PULSE 65–77; RESP 18–19; TEMP 35–38.7; O2SAT 88–94; BMI 33.7
[2024-12-10] MEDS: Chlorhexidine Gluc Oral Rinse 15 ML MOUTHWASH BUCCAL ×3 (02:41→17:19)
[2024-12-10] MEDS: fentaNYL citrate/NS 1,000 MCG/100 ML PLAST..BAG 10 MCG IVCONT ×3 (03:13→22:37)
[2024-12-10] MEDS: Heparin Sodium,Porcine Flush 50 UNITS, 0.9 % Sodium Chloride Flush 5 ML IVFLUSH (03:15)
[2024-12-10 05:25] LABS: VBG HCO3 28 mmol/L (22-26); VBG O2 % Saturation 83.0 %
[2024-12-10 05:32] LABS: Venous Blood Gas Refer to POC result
[2024-12-10 05:43] LABS: Glucose, Whole Blood 278 mg/dL (60-115)
[2024-12-10 06:03] LABS: Hematocrit 30.1 % (42.0-52.0); Hemoglobin 9.3 g/dl (14.0-18.0); Mean Corpuscular HGB Conc 30.9 g/dl (31.0-36.0); Mean Corpuscular Hemoglobin 24.5 pg (27.0-33.0); Mean Corpuscular Volume 79.2 fL (80.0-98.0); NRBC Abs Auto 0.000 X10*3/uL (0.0-0.012); NRBC Pct Auto 0.0 /100WBC (0.0-0.2); Platelet Count 114 X10*3/uL (160-400); Red Blood Count 3.80 X10*6/uL (4.60-5.80); WBC ABN SCTR FOR CBC 1
[2024-12-10 06:04] LABS: White Blood Count 3.4 X10*3/uL (4.8-10.8)
[2024-12-10 06:26] LABS: Albumin Level 3.1 g/dL (3.5-5.0); Anion Gap 14 (12-20); Atypical Lymph Absolute Manual 0.2 x10*3/uL; Atypical Lymphs Percent Manual 6 % (0-6); Band Neutrophils Percent 12 % (3-5); Basophils Abs Manual 0.1 X10*3/uL (0.0-0.2); Basophils Percent Manual 2 % (0-2); Blood Urea Nitrogen 19 mg/dL (9-16); Calcium 8.0 mg/dL (8.4-10.2); Carbon Dioxide 24 mmol/L (22-29); Chloride 108 mmol/L (96-108); Creatinine Clr Calc Pharmacy 80.8; Eosinophils Absolute Manual 0.2 X10*3/uL (0.0-0.4); Eosinophils Percent Manual 6 % (0-4); Estimated Glomerular Filt Rate > 60; Lymphocytes Absolute Manual 0.6 X10*3/uL (1.2-4.9); Lymphocytes Percent Manual 19 % (20-40); Magnesium 2.1 mg/dL (1.6-2.6); Monocytes Absolute Manual 0.7 X10*3/uL (0.1-1.2); Monocytes Percent Manual 22 % (2-11); Neutrophils Absolute Manual 1.5 X10*3/uL (2.0-8.3); Neutrophils Percent Manual 33 % (45-73); Potassium 3.5 mmol/L (3.3-5.1); Sodium 142 mmol/L (135-145)
[2024-12-10 06:28] LABS: Microcytosis 1+ (5-14) /OIF; RBC Morphology NOTED
[2024-12-10 06:29] LABS: Burr Cells 1+ (0-2) /OIF; Dohle Bodies PRESENT; Hypochromasia 1+ (5-14) /OIF; Large Platelet PRESENT; Schistocytes 1+ (0-2) /OIF; Target Cells 1+ (5-14) /OIF; Toxic Granulation PRESENT
[2024-12-10] MEDS: Potassium Chloride Packet 20 MEQ PACKET 40 MEQ PO (07:26)
[2024-12-10] MEDS: 0.9 % Sodium Chloride Flush 3 ML SYRINGE IVFLUSH ×3 (07:27→22:41)
--- NOTE | 2024-12-10 07:28 | PM.PNGS ---
Subjective Subjective Date of Service: 12/10/24 <Amy Alaniz PA-C - Last Filed: 12/10/24 07:32> 12/10/24 <Bam Collazo MD - Last Filed: 12/10/24 10:23> Interval history: No events overnight. Remains intubated on vent. <Amy Alaniz PA-C - Last Filed: 12/10/24 07:32> Physical Exam Vital Signs: Vital Signs: Last Vital Signs Temp 100.8 F H 12/10/24 06:00 Pulse 69 12/10/24 06:00 Resp 18 12/10/24 06:00 BP 102/57 L 12/10/24 06:00 Pulse Ox 92 12/10/24 06:00 O2 Del Method Mechanical Ventil ation 12/10/24 06:00 FiO2 35 12/10/24 06:00 BMI result Body Mass Index 33.7 <Amy Alaniz PA-C - Last Filed: 12/10/24 07:32> HEENT: Other: NGT with no output <Amy Alaniz PA-C - Last Filed: 12/10/24 07:32> Resp: Other: intubated, on vent <JYOTI Madrigal Last Filed: 12/10/24 07:32> GI: Other: abdomen remains mildly distended, very soft ostomy pink, mild edema, no output incision with thin tannish drainage from inferior aspect right LEÓN low serosanguineous output, removed left LEÓN serous moderate output <Amy Alaniz PA-C - Last Filed: 12/10/24 07:32> Palpation (GI): not firm and not rigid <Amy Alaniz PA-C - Last Filed: 12/10/24 07:32> Percussion: Yes normal to percussion <JYOTI Madrigal Last Filed: 12/10/24 07:32> Skin: General skin exam: no rashes or lesions noted <JYOTI Madrigal Last Filed: 12/10/24 07:32> Objective Data Active Medications Chlorhexidine Gluconate (Chlorhexidine Gluc Oral Rinse 15 Ml Mouthwash) 15 ml BUCCAL Q8H [place] Last Admin: 12/10/24 02:41 Dose: 15 ml Documented By: MANISH Dextrose (Dextrose 50 % 25 Gm/50 Ml Syringe) 25 gm IVPUSH Q15M PRN; Protocol PRN Reason: per Hypoglycemia Standing Ord. Furosemide (Furosemide 40 Mg/4 Ml Vial) 40 mg IVPUSH BID@0900,1800 [place]; Protocol Last Admin: 12/09/24 20:05 Dose: 40 mg Documented By: MANISH Glucose (Glucose Gel 15 Gm Gel..Gram.) 15 gm PO Q15M PRN; Protocol PRN Reason: per Hypoglycemia Standing Ord. Piperacillin Sod/Tazobactam (Sod 3.375 gm/ Sodium Chloride) 50 mls @ 100 mls/hr IV Q6H [place] Last Infusion: 12/10/24 05:37 Dose: Infused Documented By: MANISH Propofol (Diprivan) 1,000 mg in 100 mls @ 0 mls/hr IVCONT .Q0M [place]; Protocol Last Admin: 12/10/24 05:51 Dose: 50 mcg/kg/min, 25.86 mls/hr Documented By: MANISH Norepinephrine Bitartrate (Levophed) 8 mg in 250 mls @ 0 mls/hr IVCONT .Q0M [place]; Protocol Last Admin: 12/10/24 02:42 Dose: 0.2 mcg/kg/min, 32.33 mls/hr Documented By: MANISH Fluconazole (Diflucan) 200 mg in 100 mls @ 100 mls/hr IV Q24H [place] Last Infusion: 12/09/24 22:05 Dose: Infused Documented By: MANISH Fentanyl (Sublimaze/Ns) 1,000 mcg in 100 mls @ 0 mls/hr IVCONT .Q0M [place]; Protocol Last Admin: 12/10/24 03:13 Dose: 100 mcg/hr, 10 mls/hr Documented By: MANISH Vancomycin HCl 1,500 mg/ (Sodium Chloride) 500 mls @ 333.333 mls/hr IV Q12H [place] Last Infusion: 12/10/24 04:55 Dose: Infused Documented By: MANISH Nutrition (Parenteral) (Parenteral Nutrition) 1,920 mls @ 80 mls/hr IV .Q24H [place]; Protocol Stop: 12/10/24 20:59 Last Admin: 12/09/24 20:56 Dose: 80 mls/hr Documented By: MANISH Amiodarone HCl 900 mg/ Sodium (Chloride) 518 mls @ 34.533 mls/hr IVCONT .Q15H1M [facility] Last Admin: 12/09/24 20:03 Dose: 1 mg/min, 34.53 mls/hr Documented By: MANISH Insulin Human Lispro (Insulin Lispro 100 Unit/Ml 3 Ml Vial) 0 unit SUBCUT Q6H [facility]; Protocol Last Admin: 12/10/24 05:51 Dose: 6 unit Documented By: MANISH Magnesium Hydroxide (Milk Of Magnesia 30 Ml Oral.Susp) 30 ml PO DAILY PRN PRN Reason: Constipation Melatonin (Melatonin 3 Mg Tablet) 6 mg PO BEDTIME PRN PRN Reason: Insomnia Naloxone HCl (Naloxone Hcl 0.4 Mg/Ml Vial) 0.2 mg IVPUSH Q2M PRN PRN Reason: Excessive sedation or RR < 8 Pharmacy Consult (Consult Rx Vancomycin Dosing) 1 each MISCELLANE DAILY PRN PRN Reason: Consult order Potassium Chloride (Potassium Chloride Packet 20 Meq Packet) 40 meq PO ONCE ONE Stop: 12/10/24 08:01 Last Admin: 12/10/24 07:26 Dose: 40 meq Documented By: RAYMOND Sodium Chloride (0.9 % Sodium Chloride Flush 3 Ml Syringe) 3 ml IVFLUSH [facility] Last Admin: 12/10/24 07:27 Dose: 3 ml Documented By: RAYMOND <Amy Alaniz PA-C - Last Filed: 12/10/24 07:32> Labs CBC & Chem 7: 12/10/24 05:17 12/10/24 05:17 <Amy Alaniz PA-C - Last Filed: 12/10/24 07:32> Labs: Laboratory Results - last 24 hr 12/09/24 12/09/24 12/09/24 05:25 11:32 13:59 MCV MCH MCHC RDW Plt Count MPV Immature Gran % (Auto) Neut % (Auto) Lymph % (Auto) [place] % (Auto) Eos % (Auto) Baso % (Auto) Lymph # (Auto) [place] # (Auto) Eos # (Auto) Baso # (Auto) Abs Immat Gran (auto) Absolute Neuts (auto) Absolute Nucleated RBC Nucleated RBC % (auto) Neutrophils % (Manual) 65 Band Neutrophils % 3 Lymphocytes % (Manual) 15 L Atypical Lymphs % (Man) Monocytes % (Manual) 8 Eosinophils % (Manual) 9 H Basophils % (Manual) Abs Neuts (Manual) 2.7 Lymphocytes # (Manual) 0.6 L Atyp Lymphs # (Manual) Monocytes # (Manual) 0.3 Eosinophils # (Manual) 0.4 Basophils # (Manual) Toxic Granulation Dohle Bodies PRESENT Platelet Estimate SLIGHTLY DECREASED Large Platelets Plt Morphology Comment NORMAL RBC Morphology NOTED Hypochromasia 1+ (5-14) Microcytosis Target Cells [place] Cells 1+ (0-2) Schistocytes VBG pH VBG pCO2 VBG pO2 VBG HCO3 VBG O2 Saturation VBG Base Excess Anion Gap Estim Creat Clear Calc Estimated GFR POC Glucose 227 H Random Glucose Calcium Phosphorus Magnesium Albumin Random Vancomycin 14.0 L 12/09/24 12/09/24 12/10/24 18:03 23:39 05:17 MCV 79.2 L MCH 24.5 L MCHC 30.9 L RDW 19.3 H Plt Count 114 L MPV 9.9 Immature Gran % (Auto) Cancelled Neut % (Auto) Cancelled Lymph % (Auto) Cancelled Rush % (Auto) Cancelled Eos % (Auto) Cancelled Baso % (Auto) Cancelled Lymph # (Auto) Cancelled Rush # (Auto) Cancelled Eos # (Auto) Cancelled Baso # (Auto) Cancelled Abs Immat Gran (auto) Cancelled Absolute Neuts (auto) Cancelled Absolute Nucleated RBC 0.000 Nucleated RBC % (auto) 0.0 Neutrophils % (Manual) 33 L Band Neutrophils % 12 H Lymphocytes % (Manual) 19 L Atypical Lymphs % (Man) 6 Monocytes % (Manual) 22 H Eosinophils % (Manual) 6 H Basophils % (Manual) 2 Abs Neuts (Manual) 1.5 L Lymphocytes # (Manual) 0.6 L Atyp Lymphs # (Manual) 0.2 Monocytes # (Manual) 0.7 Eosinophils # (Manual) 0.2 Basophils # (Manual) 0.1 Toxic Granulation PRESENT Dohle Bodies PRESENT Platelet Estimate SLIGHTLY DECREASED Large Platelets PRESENT Plt Morphology Comment NOTED RBC Morphology NOTED Hypochromasia 1+ (5-14) Microcytosis 1+ (5-14) Target Cells 1+ (5-14) [place] Cells 1+ (0-2) Schistocytes 1+ (0-2) VBG pH VBG pCO2 VBG pO2 VBG HCO3 VBG O2 Saturation VBG Base Excess Anion Gap 14 Estim Creat Clear Calc 80.8 Estimated GFR > 60 POC Glucose 266 H 275 H Random Glucose 328 H Calcium 8.0 L Phosphorus 3.3 Magnesium 2.1 Albumin 3.1 L Random Vancomycin 12/10/24 12/10/24 05:19 05:31 MCV MCH MCHC RDW Plt Count MPV Immature Gran % (Auto) Neut % (Auto) Lymph % (Auto) [place] % (Auto) Eos % (Auto) Baso % (Auto) Lymph # (Auto) [place] # (Auto) Eos # (Auto) Baso # (Auto) Abs Immat Gran (auto) Absolute Neuts (auto) Absolute Nucleated RBC Nucleated RBC % (auto) Neutrophils % (Manual) Band Neutrophils % Lymphocytes % (Manual) Atypical Lymphs % (Man) Monocytes % (Manual) Eosinophils % (Manual) Basophils % (Manual) Abs Neuts (Manual) Lymphocytes # (Manual) Atyp Lymphs # (Manual) Monocytes # (Manual) Eosinophils # (Manual) Basophils # (Manual) Toxic Granulation Dohle Bodies Platelet Estimate Large Platelets Plt Morphology Comment RBC Morphology Hypochromasia Microcytosis Target Cells [place] Cells Schistocytes VBG pH 7.38 VBG pCO2 47 VBG pO2 57 VBG HCO3 28 H VBG O2 Saturation 83.0 VBG Base Excess 3.1 Anion Gap Estim Creat Clear Calc Estimated GFR POC Glucose 278 H Random Glucose Calcium Phosphorus Magnesium Albumin Random Vancomycin <Amy Alaniz PA-C - Last Filed: 12/10/24 07:32> Microbiology Microbiology Results: Microbiology 12/05/24 16:52 Blood Culture - Final Blood - Venous Escherichia coli Bacteroides fragilis group 12/05/24 16:52 Blood Culture - Final Blood - Venous Escherichia coli Bacteroides fragilis group 12/05/24 20:15 Gram Stain - Final Peritoneal Fluid Routine Culture - Preliminary Klebsiella pneumoniae Escherichia coli Bacillus species Anaerobic Culture - Preliminary 12/09/24 08:54 Gram Stain - Final Gastric Fluid <Amy Alaniz PA-C - Last Filed: 12/10/24 07:32> Procedures Date of Service Date of Service: 12/10/24 <Amy Alaniz PA-C - Last Filed: 12/10/24 07:32> 12/10/24 <Bam Collazo MD - Last Filed: 12/10/24 10:23> Progress Note: A&P Assessment and plan (1) Perforated viscus: Status: Acute <JYOTI Madrigal Last Filed: 12/10/24 07:32> Assessment and Plan: Status post emergency laparotomy, sigmoid resection, end-loop colostomy from the transverse colon Remains on the ventilator On low-dose pressors LEÓN drain appear with serial gangrenous output Good urine output Stoma viable, no output yet Anticipate delayed return of GI function in view of intra-abdominal sepsis Okay to start trial of trickle feeds via the NG tube Consider rescanning for abdominal abscesses Family updated Seen and examined with DUTCH Alaniz <Bam Collazo MD - Last Filed: 12/10/24 10:23> (2) S/P colostomy: Status: Acute <Amy Alaniz PA-C - Last Filed: 12/10/24 07:32> Assessment and Plan: Status post laparotomy, resection of large perforated tumor, 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 Found to have profound fecal contamination and fecal peritonitis throughout the entire peritoneal cavity. Remains intubated in ICU on pressors, IVF. UOP adequate. Remains febrile. Drains in place with serosanguineous output, right with low output and removed. Keep left in place until volumes diminish. Incision overall clean appearing, thin tannish drainage from inferior aspect. Await stoma function, likely will have prolonged ileus due to fecal peritonitis. NGT in place, no output. On TPN. Can begin trickle feeds to help promote GI function. Cont IV antimicrobials. Further restorative measures per ICU team. <JYOTI Madrigal Last Filed: 12/10/24 07:32> Time Spent With Patient Time: Total time managing care of this patient today ____ minutes. <JYOTI Madrigal Last Filed: 12/10/24 07:32> Quality Stroke Does the patient have a stroke diagnosis?: No <JYOTI Madrigal Last Filed: 12/10/24 07:32> VTE Prior VTE?: No <Amy Alaniz PA-C - Last Filed: 12/10/24 07:32> VTE Risk Level:: Medical - moderate - high <Amy Alaniz PA-C - Last Filed: 12/10/24 07:32> VTE Device Contraindication: N/A - Device Ordered <Amy Alaniz PA-C - Last Filed: 12/10/24 07:32> VTE Drug Contraindication: N/A - Med Ordered <Amy Alaniz PA-C - Last Filed: 12/10/24 07:32>
[2024-12-10] MEDS: Furosemide 40 MG/4 ML VIAL IVPUSH ×2 (09:28→17:19)
--- NOTE | 2024-12-10 09:40 | P.PNCC_ITS ---
Subjective Subjective Date of Service: 12/10/24 Interval History: 54-year-old gentleman with stage IV colon cancer on chemotherapy admitted on 12/05/2024 with abdominal pain secondary to sigmoid perforation with fecal peritonitis, now postoperative day 4 after laparotomy with sigmoid resection and placement of transverse colostomy, remains intubated after procedure. E.Coli bacteremia with polymicrobial peritonitis. No events overnight. Still with no return of bowel function. Critical Care Time (minutes): 60 Physical Exam 2 Vital Signs: Vital Signs: Last Vital Signs Temp 100.9 F H 12/10/24 09:00 Pulse 68 12/10/24 09:00 Resp 18 12/10/24 09:00 BP 110/63 12/10/24 09:28 Pulse Ox 93 12/10/24 09:00 O2 Del Method Mechanical Ventil ation 12/10/24 09:00 FiO2 35 12/10/24 09:00 BMI result Body Mass Index 33.7 Const: General: no acute distress and other (Sedated on ventilatory support) Eyes: Sclerae: sclerae normal EOM: EOMs intact bilaterally Neck: Neck: Yes no lymphadenopathy, Yes trachea midline and Yes supple Resp: Auscultation: clear to auscultation bilaterally Cardio: Rate: regular rate Rhythm: regular rhythm Heart sounds: no gallops, no murmurs and no rubs GI: Other: Ostomy with minimal serosanguineous output Palpation (GI): Soft to palpation and Other GI palpation findings present ( Nontender) Auscultation: Hypoactive bowel sounds present Extrem: General: Yes no pedal edema, No clubbing and No cyanosis Objective Data Labs 12/10/24 05:17 12/10/24 05:17 Labs: Laboratory Results - last 24 hr 12/09/24 12/09/24 12/09/24 11:32 13:59 18:03 WBC RBC Hgb Hct MCV MCH MCHC RDW Plt Count MPV Immature Gran % (Auto) Neut % (Auto) Lymph % (Auto) [place] % (Auto) Eos % (Auto) Baso % (Auto) Lymph # (Auto) [place] # (Auto) Eos # (Auto) Baso # (Auto) Abs Immat Gran (auto) Absolute Neuts (auto) Absolute Nucleated RBC Nucleated RBC % (auto) Neutrophils % (Manual) Band Neutrophils % Lymphocytes % (Manual) Atypical Lymphs % (Man) Monocytes % (Manual) Eosinophils % (Manual) Basophils % (Manual) Abs Neuts (Manual) Lymphocytes # (Manual) Atyp Lymphs # (Manual) Monocytes # (Manual) Eosinophils # (Manual) Basophils # (Manual) Toxic Granulation Dohle Bodies Platelet Estimate Large Platelets Plt Morphology Comment RBC Morphology Hypochromasia Microcytosis Target Cells [place] Cells Schistocytes VBG pH VBG pCO2 VBG pO2 VBG HCO3 VBG O2 Saturation VBG Base Excess Sodium Potassium Chloride Carbon Dioxide Anion Gap BUN Creatinine Estim Creat Clear Calc Estimated GFR POC Glucose 227 H 266 H Random Glucose Calcium Phosphorus Magnesium Albumin Random Vancomycin 14.0 L 12/09/24 12/10/24 12/10/24 23:39 05:17 05:19 WBC 3.4 L RBC 3.80 L Hgb 9.3 L Hct 30.1 L MCV 79.2 L MCH 24.5 L MCHC 30.9 L RDW 19.3 H Plt Count 114 L MPV 9.9 Immature Gran % (Auto) Cancelled Neut % (Auto) Cancelled Lymph % (Auto) Cancelled [place] % (Auto) Cancelled Eos % (Auto) Cancelled Baso % (Auto) Cancelled Lymph # (Auto) Cancelled [place] # (Auto) Cancelled Eos # (Auto) Cancelled Baso # (Auto) Cancelled Abs Immat Gran (auto) Cancelled Absolute Neuts (auto) Cancelled Absolute Nucleated RBC 0.000 Nucleated RBC % (auto) 0.0 Neutrophils % (Manual) 33 L Band Neutrophils % 12 H Lymphocytes % (Manual) 19 L Atypical Lymphs % (Man) 6 Monocytes % (Manual) 22 H Eosinophils % (Manual) 6 H Basophils % (Manual) 2 Abs Neuts (Manual) 1.5 L Lymphocytes # (Manual) 0.6 L Atyp Lymphs # (Manual) 0.2 Monocytes # (Manual) 0.7 Eosinophils # (Manual) 0.2 Basophils # (Manual) 0.1 Toxic Granulation PRESENT Dohle Bodies PRESENT Platelet Estimate SLIGHTLY DECREASED Large Platelets PRESENT Plt Morphology Comment NOTED RBC Morphology NOTED Hypochromasia 1+ (5-14) Microcytosis 1+ (5-14) Target Cells 1+ (5-14) [place] Cells 1+ (0-2) Schistocytes 1+ (0-2) VBG pH 7.38 VBG pCO2 47 VBG pO2 57 VBG HCO3 28 H VBG O2 Saturation 83.0 VBG Base Excess 3.1 Sodium 142 Potassium 3.5 Chloride 108 Carbon Dioxide 24 Anion Gap 14 BUN 19 H Creatinine 1.10 Estim Creat Clear Calc 80.8 Estimated GFR > 60 POC Glucose 275 H Random Glucose 328 H Calcium 8.0 L Phosphorus 3.3 Magnesium 2.1 Albumin 3.1 L Random Vancomycin 12/10/24 05:31 WBC RBC Hgb Hct MCV MCH MCHC RDW Plt Count MPV Immature Gran % (Auto) Neut % (Auto) Lymph % (Auto) [place] % (Auto) Eos % (Auto) Baso % (Auto) Lymph # (Auto) [place] # (Auto) Eos # (Auto) Baso # (Auto) Abs Immat Gran (auto) Absolute Neuts (auto) Absolute Nucleated RBC Nucleated RBC % (auto) Neutrophils % (Manual) Band Neutrophils % Lymphocytes % (Manual) Atypical Lymphs % (Man) Monocytes % (Manual) Eosinophils % (Manual) Basophils % (Manual) Abs Neuts (Manual) Lymphocytes # (Manual) Atyp Lymphs # (Manual) Monocytes # (Manual) Eosinophils # (Manual) Basophils # (Manual) Toxic Granulation Dohle Bodies Platelet Estimate Large Platelets Plt Morphology Comment RBC Morphology Hypochromasia Microcytosis Target Cells [place] Cells Schistocytes VBG pH VBG pCO2 VBG pO2 VBG HCO3 VBG O2 Saturation VBG Base Excess Sodium Potassium Chloride Carbon Dioxide Anion Gap BUN Creatinine Estim Creat Clear Calc Estimated GFR POC Glucose 278 H Random Glucose Calcium Phosphorus Magnesium Albumin Random Vancomycin Microbiology Microbiology Results: Microbiology 12/05/24 20:15 Peritoneal Fluid Gram Stain - Final 12/05/24 20:15 Peritoneal Fluid Routine Culture - Preliminary Klebsiella pneumoniae Escherichia coli Bacillus species 12/05/24 20:15 Peritoneal Fluid Anaerobic Culture - Final 12/09/24 08:54 Gastric Fluid Gram Stain - Final 12/09/24 08:54 Gastric Fluid Anaerobic Culture - Preliminary Culture in progress. 12/09/24 08:54 Gastric Fluid Body Fluid Culture - Preliminary Gram negative dorian 12/05/24 16:52 Blood - Venous Blood Culture - Final Escherichia coli Bacteroides fragilis group 12/05/24 16:52 Blood - Venous Blood Culture - Final Escherichia coli Bacteroides fragilis group Progress Note: A&P Assessment and plan (1) Colonic mass: Status: Acute (2) Perforated viscus: Status: Acute (3) Peritonitis: Status: Acute (4) E coli bacteremia: Status: Acute (5) Acute hypoxemic respiratory failure: Status: Acute Plan Assessment: 54-year-old gentleman postoperative day 5 for sigmoidectomy and transverse colostomy for perforated sigmoid cancer remains intubated postop Plan: Neuro: No acute issues. Cardiac: AFib with RVR, continue amiodarone drip. Pulmonary: Acute hypoxic respiratory failure, remains intubated postop, continue to titrate off ventilatory support as tolerated. Renal: No acute issues. Endo: No acute issues. GI: Postoperative day 5 after sigmoidectomy with transverse colostomy for perforated sigmoid cancer. General surgery service care appreciated. ID: Empiric coverage for polymicrobial peritonitis with polymicrobial Gram- negative bacteremia. Heme/Onc: Eosinophilia improving. Psych: No acute issues. Miscellaneous: No acute issues. Prophylaxis: Pneumatic compression, famotidine Diet: TPN, trophic tube feeds Critical care time spent: 60 minutes Quality Stroke Does the patient have a stroke diagnosis?: No VTE Prior VTE?: No VTE Risk Level:: Medical - moderate - high VTE Device Contraindication: N/A - Device Ordered VTE Drug Contraindication: N/A - Med Ordered
--- NOTE | 2024-12-10 10:17 | MHC.CLN ---
F/U PT REMAINS INTUBATED AND SEDATED DISCCUSSED AT ROUNDS WITH MD-PLAN TO START TRICKLE FEEDS REVIEWED LABS DISCUSSED WITH PHARMACY CONTINUE TPN AT 80ML/HR PROVIDES 1363KCALS (2046KCALS WITH SEDATION; 28KCALS/KG), 288G DEXTROSE, 96G PROTEIN (1.3G/KG) HOLD LIPIDS REPLETE LYTES NEEDED RECOMMEND STARTING JEVITY 1.0 AT MAX GOAL RATE 20ML/HR TO PROVIDE 509KCALS (2555 TOTAL KCALS WITH SEDATION AND TPN; 35KCALS/KG BASED ON CMW), 21G PROTEIN (117G PROTEIN TOTAL WITH TPN; 1.6G/KG), 401ML FREE WATER FROM FORMULA MONITOR TOLERANCE AND LYTES
[2024-12-10 11:47] LABS: Glucose, Whole Blood 295 mg/dL (60-115)
--- NOTE | 2024-12-10 14:11 | MHC.CM.PN ---
Pt remains intubated : POD 5 s/p exploratory lap w/colostomy and bowel spillage. Right LEÓN drain removed. No plans for extubation today: pt has been referred to [facility].
--- NOTE | 2024-12-10 14:48 | HE.PHANOTE ---
RE VANCO DOSING WILL REDUCE DOSE TO 1250 Q12 (AND SPACE NEXT DOSE BACK BY 2 HOURS) TROUGH TODAY IS 19.1. WILL MONITOR RENAL FUNCTION AND TROUGH TOMORROW TO ENSURE SAFE AND EFFICACIOUS TREATMENT.
[2024-12-10 17:14] LABS: Glucose, Whole Blood 328 mg/dL (60-115)
--- NOTE | 2024-12-10 18:24 | PC.NURSE ---
Assumed care at 0700 - patient remains intubated and sedated. Patient started on tube feeds @ 20cc/hr per general surgery - 1800 residual 0. No output from ostomy. R LEÓN drain removed at bedside by general surgery PA. L LEÓN drain ouput 225cc serous.
[2024-12-10] MEDS: Parenteral Nutrition 1,920 ML 80 ML IV (21:13)
[2024-12-10 23:44] LABS: Glucose, Whole Blood 335 mg/dL (60-115)
[2024-12-11] VITALS (41 sets, daily range): BP systolic 80–152; BP diastolic 47–88; PULSE 67–149; RESP 15–20; TEMP 35–38.6; O2SAT 93–97; BMI 30.9
[2024-12-11] MEDS: Chlorhexidine Gluc Oral Rinse 15 ML MOUTHWASH BUCCAL ×3 (02:57→16:56)
[2024-12-11 04:26] LABS: VBG HCO3 29 mmol/L (22-26); VBG O2 % Saturation 60.0 %
[2024-12-11 04:52] LABS: Hematocrit 29.8 % (42.0-52.0); Hemoglobin 8.9 g/dl (14.0-18.0); Mean Corpuscular HGB Conc 29.9 g/dl (31.0-36.0); Mean Corpuscular Hemoglobin 24.1 pg (27.0-33.0); Mean Corpuscular Volume 80.5 fL (80.0-98.0); NRBC Abs Auto 0.000 X10*3/uL (0.0-0.012); NRBC Pct Auto 0.0 /100WBC (0.0-0.2); Platelet Count 128 X10*3/uL (160-400); Red Blood Count 3.70 X10*6/uL (4.60-5.80)
[2024-12-11 05:15] LABS: WBC ABN SCTR FOR CBC 1; White Blood Count 3.5 X10*3/uL (4.8-10.8)
[2024-12-11 05:17] LABS: Albumin Level 2.9 g/dL (3.5-5.0); Anion Gap 14 (12-20); Blood Urea Nitrogen 24 mg/dL (9-16); Calcium 8.0 mg/dL (8.4-10.2); Carbon Dioxide 25 mmol/L (22-29); Chloride 105 mmol/L (96-108); Creatinine Clr Calc Pharmacy 60.8; Estimated Glomerular Filt Rate 50; Magnesium 2.3 mg/dL (1.6-2.6); Potassium 3.5 mmol/L (3.3-5.1); Sodium 140 mmol/L (135-145)
[2024-12-11 05:31] LABS: Band Neutrophils Percent 21 % (3-5); Basophils Percent Manual 1 % (0-2); Eosinophils Absolute Manual 0.4 X10*3/uL (0.0-0.4); Eosinophils Percent Manual 12 % (0-4); Lymphocytes Absolute Manual 0.5 X10*3/uL (1.2-4.9); Lymphocytes Percent Manual 14 % (20-40); Monocytes Absolute Manual 0.5 X10*3/uL (0.1-1.2); Monocytes Percent Manual 14 % (2-11); Neutrophils Absolute Manual 2.1 X10*3/uL (2.0-8.3); Neutrophils Percent Manual 38 % (45-73)
[2024-12-11 05:35] LABS: Burr Cells 1+ (0-2) /OIF; Ovalocytes 1+ (5-14) /OIF; Polychromasia 1+ (0-2) /OIF; RBC Morphology NOTED; Toxic Granulation PRESENT
[2024-12-11 05:36] LABS: Dohle Bodies PRESENT
[2024-12-11] MEDS: Potassium Chloride/H20 40 MEQ/100 ML PIGGYBACK 100 MEQ IV (05:38)
[2024-12-11] MEDS: fentaNYL citrate/NS 1,000 MCG/100 ML PLAST..BAG 10 MCG IVCONT (06:06)
[2024-12-11] MEDS: Albumin Human 25 % 100 ML IV (06:58)
[2024-12-11] MEDS: 0.9 % Sodium Chloride Flush 3 ML SYRINGE IVFLUSH ×3 (06:59→23:46)
[2024-12-11 07:38] LABS: Venous Blood Gas Refer to POC result
[2024-12-11] MEDS: Furosemide 40 MG/4 ML VIAL IVPUSH (08:09)
--- NOTE | 2024-12-11 08:46 | PM.PNGS ---
Subjective Subjective Date of Service: 12/11/24 Interval history: No events overnight. No residuals on tube feeds. Physical Exam Vital Signs: Vital Signs: Last Vital Signs Temp 100.4 F 12/11/24 08:00 Pulse 101 H 12/11/24 08:00 Resp 18 12/11/24 08:00 BP 99/59 L 12/11/24 08:00 Pulse Ox 95 12/11/24 08:00 O2 Del Method Mechanical Ventil ation 12/11/24 08:00 FiO2 35 12/11/24 08:00 BMI result Body Mass Index 30.9 Resp: Other: intubated on vent GI: Other: ostomy pink, no flatus or output abd remains soft and mildly distended, nontympanitic left LEÓN serosanguineous drainage, surrounding skin erythematous and thickened without palpable fluctuance, ?reactive changes incision without erythema, jose luis intact loosely approximating, thin tannish drainage from inferior aspect Skin: Other: warm and dry Objective Data Active Medications Chlorhexidine Gluconate (Chlorhexidine Gluc Oral Rinse 15 Ml Mouthwash) 15 ml BUCCAL Q8H [place] Last Admin: 12/11/24 02:57 Dose: 15 ml Documented By: MANISH Dextrose (Dextrose 50 % 25 Gm/50 Ml Syringe) 25 gm IVPUSH Q15M PRN; Protocol PRN Reason: per Hypoglycemia Standing Ord. Furosemide (Furosemide 40 Mg/4 Ml Vial) 40 mg IVPUSH BID@0900,1800 [place]; Protocol Last Admin: 12/11/24 08:09 Dose: 40 mg Documented By: RAYMOND Glucose (Glucose Gel 15 Gm Gel..Gram.) 15 gm PO Q15M PRN; Protocol PRN Reason: per Hypoglycemia Standing Ord. Piperacillin Sod/Tazobactam (Sod 3.375 gm/ Sodium Chloride) 50 mls @ 100 mls/hr IV Q6H [place] Last Infusion: 12/11/24 05:52 Dose: Infused Documented By: MANISH Propofol (Diprivan) 1,000 mg in 100 mls @ 0 mls/hr IVCONT .Q0M [place]; Protocol Last Admin: 12/11/24 06:06 Dose: 50 mcg/kg/min, 25.86 mls/hr Documented By: JAMISON Norepinephrine Bitartrate (Levophed) 8 mg in 250 mls @ 0 mls/hr IVCONT .Q0M [place]; Protocol Last Admin: 12/11/24 06:59 Dose: 0.2 mcg/kg/min, 32.33 mls/hr Documented By: RAYMOND Fluconazole (Diflucan) 200 mg in 100 mls @ 100 mls/hr IV Q24H [place] Last Infusion: 12/10/24 22:13 Dose: Infused Documented By: MANISH Fentanyl (Sublimaze/Ns) 1,000 mcg in 100 mls @ 0 mls/hr IVCONT .Q0M [place]; Protocol Last Admin: 12/11/24 06:06 Dose: 100 mcg/hr, 10 mls/hr Documented By: JAMISON Amiodarone HCl 900 mg/ Sodium (Chloride) 518 mls @ 34.533 mls/hr IVCONT .Q15H1M [facility] Last Admin: 12/11/24 00:03 Dose: 1 mg/min, 34.53 mls/hr Documented By: MANISH Nutrition (Parenteral) (Parenteral Nutrition) 1,920 mls @ 80 mls/hr IV .Q24H [place]; Protocol Stop: 12/11/24 20:59 Last Admin: 12/10/24 21:13 Dose: 80 mls/hr Documented By: MANISH Vancomycin HCl 1,250 mg/ (Sodium Chloride) 250 mls @ 166.667 mls/hr IV Q12H [facility] Last Infusion: 12/11/24 06:50 Dose: Infused Documented By: RAYMOND Albumin Human (Kedbumin 25 %) 100 mls @ 100 mls/hr IV ONCE ONE Stop: 12/11/24 08:59 Last Infusion: 12/11/24 08:05 Dose: Infused Documented By: RAYMOND Insulin Human Lispro (Insulin Lispro 100 Unit/Ml 3 Ml Vial) 0 unit SUBCUT Q6H [place]; Protocol Last Admin: 12/11/24 05:33 Dose: 10 unit Documented By: MANISH Magnesium Hydroxide (Milk Of Magnesia 30 Ml Oral.Susp) 30 ml PO DAILY PRN PRN Reason: Constipation Melatonin (Melatonin 3 Mg Tablet) 6 mg PO BEDTIME PRN PRN Reason: Insomnia Naloxone HCl (Naloxone Hcl 0.4 Mg/Ml Vial) 0.2 mg IVPUSH Q2M PRN PRN Reason: Excessive sedation or RR < 8 Pharmacy Consult (Consult Rx Vancomycin Dosing) 1 each MISCELLANE DAILY PRN PRN Reason: Consult order Sodium Chloride (0.9 % Sodium Chloride Flush 3 Ml Syringe) 3 ml IVFLUSH QSHIFT [facility] Last Admin: 12/11/24 06:59 Dose: 3 ml Documented By: RAYMOND Labs 12/11/24 04:09 12/11/24 04:09 Labs: Laboratory Results - last 24 hr 12/09/24 12/10/24 12/10/24 09:21 11:40 14:06 MCV MCH MCHC RDW Plt Count MPV Immature Gran % (Auto) Neut % (Auto) Lymph % (Auto) [place] % (Auto) Eos % (Auto) Baso % (Auto) Lymph # (Auto) [place] # (Auto) Eos # (Auto) Baso # (Auto) Abs Immat Gran (auto) Absolute Neuts (auto) Absolute Nucleated RBC Nucleated RBC % (auto) Neutrophils % (Manual) Band Neutrophils % Lymphocytes % (Manual) Monocytes % (Manual) Eosinophils % (Manual) Basophils % (Manual) Abs Neuts (Manual) Lymphocytes # (Manual) Monocytes # (Manual) Eosinophils # (Manual) Toxic Granulation Dohle Bodies Platelet Estimate Plt Morphology Comment RBC Morphology Polychromasia Ovalocytes [place] Cells VBG pH VBG pCO2 VBG pO2 VBG HCO3 VBG O2 Saturation VBG Base Excess Anion Gap Estim Creat Clear Calc Estimated GFR POC Glucose 295 H Random Glucose Calcium Phosphorus Magnesium Albumin Random Vancomycin 19.1 Ref Lab Test Result SEE NOTE 12/10/24 12/10/24 12/11/24 17:11 23:32 04:09 MCV 80.5 MCH 24.1 L MCHC 29.9 L RDW 19.9 H Plt Count 128 L MPV 11.1 Immature Gran % (Auto) Cancelled Neut % (Auto) Cancelled Lymph % (Auto) Cancelled [place] % (Auto) Cancelled Eos % (Auto) Cancelled Baso % (Auto) Cancelled Lymph # (Auto) Cancelled [place] # (Auto) Cancelled Eos # (Auto) Cancelled Baso # (Auto) Cancelled Abs Immat Gran (auto) Cancelled Absolute Neuts (auto) Cancelled Absolute Nucleated RBC 0.000 Nucleated RBC % (auto) 0.0 Neutrophils % (Manual) 38 L Band Neutrophils % 21 H Lymphocytes % (Manual) 14 L Monocytes % (Manual) 14 H Eosinophils % (Manual) 12 H Basophils % (Manual) 1 Abs Neuts (Manual) 2.1 Lymphocytes # (Manual) 0.5 L Monocytes # (Manual) 0.5 Eosinophils # (Manual) 0.4 Toxic Granulation PRESENT Dohle Bodies PRESENT Platelet Estimate SLIGHTLY DECREASED Plt Morphology Comment NORMAL RBC Morphology NOTED Polychromasia 1+ (0-2) Ovalocytes 1+ (5-14) [place] Cells 1+ (0-2) VBG pH VBG pCO2 VBG pO2 VBG HCO3 VBG O2 Saturation VBG Base Excess Anion Gap 14 Estim Creat Clear Calc 60.8 Estimated GFR 50 POC Glucose 328 H 335 H Random Glucose 408 H* Calcium 8.0 L Phosphorus 3.3 Magnesium 2.3 Albumin 2.9 L Random Vancomycin Ref Lab Test Result 12/11/24 04:22 MCV MCH MCHC RDW Plt Count MPV Immature Gran % (Auto) Neut % (Auto) Lymph % (Auto) [place] % (Auto) Eos % (Auto) Baso % (Auto) Lymph # (Auto) [place] # (Auto) Eos # (Auto) Baso # (Auto) Abs Immat Gran (auto) Absolute Neuts (auto) Absolute Nucleated RBC Nucleated RBC % (auto) Neutrophils % (Manual) Band Neutrophils % Lymphocytes % (Manual) Monocytes % (Manual) Eosinophils % (Manual) Basophils % (Manual) Abs Neuts (Manual) Lymphocytes # (Manual) Monocytes # (Manual) Eosinophils # (Manual) Toxic Granulation Dohle Bodies Platelet Estimate Plt Morphology Comment RBC Morphology Polychromasia Ovalocytes [place] Cells VBG pH 7.33 VBG pCO2 53 VBG pO2 41 VBG HCO3 29 H VBG O2 Saturation 60.0 VBG Base Excess 2.5 Anion Gap Estim Creat Clear Calc Estimated GFR POC Glucose Random Glucose Calcium Phosphorus Magnesium Albumin Random Vancomycin Ref Lab Test Result Microbiology Microbiology Results: Microbiology 12/09/24 08:54 Gram Stain - Final Gastric Fluid Anaerobic Culture - Preliminary Culture in progress. Body Fluid Culture - Preliminary Klebsiella pneumoniae 12/05/24 20:15 Gram Stain - Final Peritoneal Fluid Routine Culture - Final Klebsiella pneumoniae Escherichia coli Bacillus species Pseudomonas species Anaerobic Culture - Final Procedures Date of Service Date of Service: 12/11/24 Progress Note: A&P Assessment and plan (1) S/P colostomy: Status: Acute (2) Perforated viscus: Status: Acute Plan Status post laparotomy, resection of large perforated tumor, 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 Found to have profound fecal contamination and fecal peritonitis throughout the entire peritoneal cavity. Remains intubated in ICU on pressors, IVF. UOP adequate. Remains febrile although fever curved improved. Left ELÓN in place with high volume serosanguineous output. Keep in place until volumes diminish. Incision overall clean appearing, thin tannish drainage from inferior aspect. Erythema and skin thickening at left lower abdomen extending toward LEÓN site, no palpable fluctuance. ?Reactive changes. Await stoma function, prolonged return of GI function anticipated due to fecal peritonitis. NGT in place and started on trickle feeds yesterday with no residual, no increasing distention this AM. Cont IV antimicrobials. Possible repeat CT scan today or tomorrow to assess for intraabdominal abscess. Further restorative measures per ICU team. Time Spent With Patient Time: Total time managing care of this patient today ____ minutes. Quality Stroke Does the patient have a stroke diagnosis?: No VTE Prior VTE?: No VTE Risk Level:: Medical - moderate - high VTE Device Contraindication: N/A - Device Ordered VTE Drug Contraindication: N/A - Med Ordered
--- NOTE | 2024-12-11 09:19 | MHC.CLN ---
F/U PT REMAINS INTUBATED AND SEDATED REVIEWED LABS DISCUSSED WITH PHARMACY CONTINUE TPN AT 80ML/HR PROVIDES 1363KCALS (2046KCALS WITH SEDATION; 28KCALS/KG), 288G DEXTROSE, 96G PROTEIN (1.3G/KG) HOLD LIPIDS REPLETE LYTES NEEDED CONTINUE JEVITY 1.0 AT MAX GOAL RATE 20ML/HR PROVIDES 509KCALS (2555 TOTAL KCALS WITH SEDATION AND TPN; 35KCALS/KG BASED ON CMW), 21G PROTEIN (117G PROTEIN TOTAL WITH TPN; 1.6G/KG), 401ML FREE WATER FROM FORMULA MONITOR TOLERANCE AND LYTES RD CAN BE REACHED DURING OFF HOURS VIA TIGER CONNECT IF NEEDED
--- NOTE | 2024-12-11 09:50 | PM.CCPN ---
Subjective Subjective Date of Service: 12/11/24 Interval History: 54-year-old gentleman with stage IV colon cancer on chemotherapy admitted on 12/05/2024 with abdominal pain secondary to sigmoid perforation with fecal peritonitis, now postoperative day 4 after laparotomy with sigmoid resection and placement of transverse colostomy, remains intubated after procedure. Polymicrobial bacteremia and peritonitis. Prolonged return of bowel function. No events overnight. Critical Care Time (minutes): 60 Physical Exam Vital Signs: Vital Signs: Last Vital Signs Temp 100.2 F 12/11/24 09:00 Pulse 98 12/11/24 09:00 Resp 18 12/11/24 09:00 BP 105/63 12/11/24 09:00 Pulse Ox 95 12/11/24 09:00 O2 Del Method Mechanical Ventil ation 12/11/24 09:00 FiO2 35 12/11/24 09:00 BMI result Body Mass Index 30.9 Const: General: no acute distress and other (Sedated on ventilatory support) Eyes: Sclerae: sclerae normal EOM: EOMs intact bilaterally Neck: Neck: Yes no lymphadenopathy, Yes trachea midline and Yes supple Resp: Effort & Inspection: normal respiratory effort and no respiratory distress Auscultation: clear to auscultation bilaterally Cardio: Rate: regular rate Rhythm: abnormal rhythm irregularly irregular Heart sounds: no gallops, no murmurs and no rubs GI: Other: Ostomy with minimal serosanguineous output Palpation (GI): Soft to palpation and Other GI palpation findings present ( Nontender) Auscultation: normal bowel sounds and Hypoactive bowel sounds present Extrem: General: Yes no pedal edema, No clubbing and No cyanosis Objective Data Labs 12/11/24 04:09 12/11/24 04:09 Labs: Laboratory Results - last 24 hr 12/09/24 12/10/24 12/10/24 09:21 11:40 14:06 WBC RBC Hgb Hct MCV MCH MCHC RDW Plt Count MPV Immature Gran % (Auto) Neut % (Auto) Lymph % (Auto) [place] % (Auto) Eos % (Auto) Baso % (Auto) Lymph # (Auto) [place] # (Auto) Eos # (Auto) Baso # (Auto) Abs Immat Gran (auto) Absolute Neuts (auto) Absolute Nucleated RBC Nucleated RBC % (auto) Neutrophils % (Manual) Band Neutrophils % Lymphocytes % (Manual) Monocytes % (Manual) Eosinophils % (Manual) Basophils % (Manual) Abs Neuts (Manual) Lymphocytes # (Manual) Monocytes # (Manual) Eosinophils # (Manual) Toxic Granulation Dohle Bodies Platelet Estimate Plt Morphology Comment RBC Morphology Polychromasia Ovalocytes [place] Cells VBG pH VBG pCO2 VBG pO2 VBG HCO3 VBG O2 Saturation VBG Base Excess Sodium Potassium Chloride Carbon Dioxide Anion Gap BUN Creatinine Estim Creat Clear Calc Estimated GFR POC Glucose 295 H Random Glucose Calcium Phosphorus Magnesium Albumin Random Vancomycin 19.1 Ref Lab Test Result SEE NOTE 12/10/24 12/10/24 12/11/24 17:11 23:32 04:09 WBC 3.5 L RBC 3.70 L Hgb 8.9 L Hct 29.8 L MCV 80.5 MCH 24.1 L MCHC 29.9 L RDW 19.9 H Plt Count 128 L MPV 11.1 Immature Gran % (Auto) Cancelled Neut % (Auto) Cancelled Lymph % (Auto) Cancelled [place] % (Auto) Cancelled Eos % (Auto) Cancelled Baso % (Auto) Cancelled Lymph # (Auto) Cancelled [place] # (Auto) Cancelled Eos # (Auto) Cancelled Baso # (Auto) Cancelled Abs Immat Gran (auto) Cancelled Absolute Neuts (auto) Cancelled Absolute Nucleated RBC 0.000 Nucleated RBC % (auto) 0.0 Neutrophils % (Manual) 38 L Band Neutrophils % 21 H Lymphocytes % (Manual) 14 L Monocytes % (Manual) 14 H Eosinophils % (Manual) 12 H Basophils % (Manual) 1 Abs Neuts (Manual) 2.1 Lymphocytes # (Manual) 0.5 L Monocytes # (Manual) 0.5 Eosinophils # (Manual) 0.4 Toxic Granulation PRESENT Dohle Bodies PRESENT Platelet Estimate SLIGHTLY DECREASED Plt Morphology Comment NORMAL RBC Morphology NOTED Polychromasia 1+ (0-2) Ovalocytes 1+ (5-14) [place] Cells 1+ (0-2) VBG pH VBG pCO2 VBG pO2 VBG HCO3 VBG O2 Saturation VBG Base Excess Sodium 140 Potassium 3.5 Chloride 105 Carbon Dioxide 25 Anion Gap 14 BUN 24 H Creatinine 1.46 H Estim Creat Clear Calc 60.8 Estimated GFR 50 POC Glucose 328 H 335 H Random Glucose 408 H* Calcium 8.0 L Phosphorus 3.3 Magnesium 2.3 Albumin 2.9 L Random Vancomycin Ref Lab Test Result 12/11/24 04:22 WBC RBC Hgb Hct MCV MCH MCHC RDW Plt Count MPV Immature Gran % (Auto) Neut % (Auto) Lymph % (Auto) [place] % (Auto) Eos % (Auto) Baso % (Auto) Lymph # (Auto) [place] # (Auto) Eos # (Auto) Baso # (Auto) Abs Immat Gran (auto) Absolute Neuts (auto) Absolute Nucleated RBC Nucleated RBC % (auto) Neutrophils % (Manual) Band Neutrophils % Lymphocytes % (Manual) Monocytes % (Manual) Eosinophils % (Manual) Basophils % (Manual) Abs Neuts (Manual) Lymphocytes # (Manual) Monocytes # (Manual) Eosinophils # (Manual) Toxic Granulation Dohle Bodies Platelet Estimate Plt Morphology Comment RBC Morphology Polychromasia Ovalocytes [place] Cells VBG pH 7.33 VBG pCO2 53 VBG pO2 41 VBG HCO3 29 H VBG O2 Saturation 60.0 VBG Base Excess 2.5 Sodium Potassium Chloride Carbon Dioxide Anion Gap BUN Creatinine Estim Creat Clear Calc Estimated GFR POC Glucose Random Glucose Calcium Phosphorus Magnesium Albumin Random Vancomycin Ref Lab Test Result Microbiology Microbiology Results: Microbiology 12/09/24 08:54 Gastric Fluid Gram Stain - Final 12/09/24 08:54 Gastric Fluid Anaerobic Culture - Preliminary Culture in progress. 12/09/24 08:54 Gastric Fluid Body Fluid Culture - Preliminary Klebsiella pneumoniae 12/05/24 20:15 Peritoneal Fluid Gram Stain - Final 12/05/24 20:15 Peritoneal Fluid Routine Culture - Final Klebsiella pneumoniae Escherichia coli Bacillus species Pseudomonas species 12/05/24 20:15 Peritoneal Fluid Anaerobic Culture - Final 12/05/24 16:52 Blood - Venous Blood Culture - Final Escherichia coli Bacteroides fragilis group 12/05/24 16:52 Blood - Venous Blood Culture - Final Escherichia coli Bacteroides fragilis group Progress Note: A&P Assessment and plan (1) Acute hypoxemic respiratory failure: Status: Acute (2) E coli bacteremia: Status: Acute (3) Colon cancer: Status: Acute (4) Peritonitis: Status: Acute (5) Perforated viscus: Status: Acute (6) S/P colostomy: Status: Acute Plan Assessment: 54-year-old gentleman postoperative day 5 for sigmoidectomy and transverse colostomy for perforated sigmoid cancer remains intubated postop Plan: Neuro: No acute issues. Cardiac: AFib with RVR, continue amiodarone drip. Pulmonary: Acute hypoxic respiratory failure, remains intubated postop, continue to titrate off ventilatory support as tolerated. Renal: No acute issues. Endo: No acute issues. GI: Postoperative day 5 after sigmoidectomy with transverse colostomy for perforated sigmoid cancer. General surgery service care appreciated. Plan for CT abdomen/pelvis later today. ID: Empiric coverage for polymicrobial peritonitis with polymicrobial Gram-negative bacteremia. Heme/Onc: Still with significant eosinophilia. Psych: No acute issues. Miscellaneous: No acute issues. Prophylaxis: Pneumatic compression, famotidine Diet: TPN, trophic tube feeds Critical care time spent: 60 minutes Quality Stroke Does the patient have a stroke diagnosis?: No VTE Prior VTE?: No VTE Risk Level:: Medical - moderate - high VTE Device Contraindication: N/A - Device Ordered VTE Drug Contraindication: N/A - Med Ordered
--- NOTE | 2024-12-11 10:05 | P.CDIM_ITS ---
PROVIDER RESPONSE TEXT: To clarify, the appropriate diagnosis supported by the clinical indicators: Diagnosis was present on admission and is still being monitored, evaluated, or treated QUERY TEXT: PHYSICIAN'S DOCUMENTATION REQUEST Date of Query: 12/11/2024 08:17 AM EDT Patient Name: Paras Hughes Admit Date: 12/06/2024 Dear Saúl Young MD, A review of the medical record indicates additional documentation may be needed. Please review below and update the documentation accordingly. Clinical Indicators: Surgical progress note 12/07/24 - Status post laparotomy, resection of large perforated tumor, 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 Anticipate difficult postop course in the view of intra-abdominal Sepsis. Continue IV Antibiotics. Bands 56 H HR 120 RR Temp 99.1/101.1 WBC 3.2 Zosyn and Vancomycin Found to have profound fecal contamination and fecal peritonitis throughout entire peritoneal cavity. E.coli bacteremia with polymicrobial peritonitis. The diagnosis of Sepsis was documented on 12/07/24 but is not consistently noted in subsequent documentation. Please clarify the following: Diagnosis was present on admission and is now resolved Diagnosis was present on admission and is still being monitored, evaluated, or treated Diagnosis was ruled out Diagnosis is still a likely, suspected, probable diagnosis Other (explain) Clinically unable to determine (explain) Thank you, Eufemia Echols, CCS, CDIS Use of terms such as suspected, likely, concern for, or probable (associated with a specific diagnosis that is being evaluated, monitored, or treated as if it exists) are acceptable and can be coded in the inpatient setting, when documented at the time of discharge. Please use your independent medical judgment in providing your response. THIS QUERY IS PART OF THE PERMANENT MEDICAL RECORD
[2024-12-11] MEDS: Insulin Glargine,Hum.rec.anlog 100 UNIT/ML 10 ML VIAL 20 UNIT SUBCUT ×2 (10:22→23:34)
[2024-12-11 11:21] LABS: Glucose, Whole Blood 354 mg/dL (60-115)
--- NOTE | 2024-12-11 12:54 | MHC.CM.PN ---
Pt continues care in ICU: on vent: plan for today: CT of abd - no outpt from new colostomy. Pt will have an oncology consult for further guidance of care. D/C plan to remain ongoing.
[2024-12-11 16:33] LABS: Glucose, Whole Blood 359 mg/dL (60-115)
[2024-12-11] MEDS: Insulin Regular/NS 100 UNIT/100 ML PLAST..BAG IVCONT (16:52)
[2024-12-11 18:01] LABS: Glucose, Whole Blood 366 mg/dL (60-115)
[2024-12-11 19:07] LABS: Glucose, Whole Blood 332 mg/dL (60-115)
[2024-12-11 20:04] LABS: Glucose, Whole Blood 358 mg/dL (60-115)
[2024-12-11] MEDS: Parenteral Nutrition 1,920 ML 80 ML IV (20:51)
[2024-12-11 21:17] LABS: Glucose, Whole Blood 358 mg/dL (60-115)
[2024-12-11 22:13] LABS: Glucose, Whole Blood 351 mg/dL (60-115)
[2024-12-11 23:07] LABS: Glucose, Whole Blood 350 mg/dL (60-115)
[2024-12-11 23:39] LABS: Venous Blood Gas Refer to POC result
[2024-12-11 23:45] LABS: VBG HCO3 25 mmol/L (22-26); VBG O2 % Saturation 81.0 %
[2024-12-12] VITALS (39 sets, daily range): BP systolic 95–149; BP diastolic 48–89; PULSE 89–146; RESP 14–20; TEMP 34.9–38.7; O2SAT 93–100; BMI 30.5
[2024-12-12 00:07] LABS: Anion Gap 14 (12-20); Blood Urea Nitrogen 27 mg/dL (9-16); Calcium 8.3 mg/dL (8.4-10.2); Carbon Dioxide 23 mmol/L (22-29); Chloride 107 mmol/L (96-108); Creatinine Clr Calc Pharmacy 60.0; Estimated Glomerular Filt Rate 52; Potassium 3.0 mmol/L (3.3-5.1); Sodium 141 mmol/L (135-145)
[2024-12-12 00:18] LABS: Glucose, Whole Blood 339 mg/dL (60-115)
[2024-12-12] MEDS: Potassium Chloride/H20 40 MEQ/100 ML PIGGYBACK 50 MEQ IV (00:31)
[2024-12-12 00:33] LABS: Magnesium 2.2 mg/dL (1.6-2.6)
[2024-12-12] MEDS: Potassium Phosphate/NS 15 MMOL/250 ML PLAST..BAG 62.5 MMOL IV ×2 (00:53→04:51)
[2024-12-12 01:23] LABS: Glucose, Whole Blood 319 mg/dL (60-115)
[2024-12-12] MEDS: Insulin Regular/NS 100 UNIT/100 ML PLAST..BAG 14 UNIT IVCONT (01:58)
[2024-12-12] MEDS: Chlorhexidine Gluc Oral Rinse 15 ML MOUTHWASH BUCCAL ×3 (01:58→17:16)
[2024-12-12 02:05] LABS: Glucose, Whole Blood 339 mg/dL (60-115)
[2024-12-12 03:08] LABS: Glucose, Whole Blood 311 mg/dL (60-115)
[2024-12-12 03:54] LABS: Glucose, Whole Blood 316 mg/dL (60-115)
[2024-12-12 04:57] LABS: VBG HCO3 25 mmol/L (22-26); VBG O2 % Saturation 69.0 %
[2024-12-12 05:06] LABS: Glucose, Whole Blood 293 mg/dL (60-115)
[2024-12-12 05:34] LABS: Hematocrit 27.7 % (42.0-52.0); Hemoglobin 8.9 g/dl (14.0-18.0); Mean Corpuscular HGB Conc 32.1 g/dl (31.0-36.0); Mean Corpuscular Hemoglobin 24.9 pg (27.0-33.0); Mean Corpuscular Volume 77.6 fL (80.0-98.0); NRBC Abs Auto 0.030 X10*3/uL (0.0-0.012); NRBC Pct Auto 0.6 /100WBC (0.0-0.2); Platelet Count 151 X10*3/uL (160-400); Red Blood Count 3.57 X10*6/uL (4.60-5.80); White Blood Count 4.6 X10*3/uL (4.8-10.8)
[2024-12-12 05:44] LABS: Venous Blood Gas Refer to POC result
[2024-12-12 05:54] LABS: Albumin Level 2.8 g/dL (3.5-5.0); Anion Gap 16 (12-20); Blood Urea Nitrogen 27 mg/dL (9-16); Calcium 8.2 mg/dL (8.4-10.2); Carbon Dioxide 21 mmol/L (22-29); Chloride 109 mmol/L (96-108); Creatinine Clr Calc Pharmacy 61.7; Estimated Glomerular Filt Rate 54; Magnesium 2.2 mg/dL (1.6-2.6); Potassium 3.6 mmol/L (3.3-5.1); Sodium 142 mmol/L (135-145)
[2024-12-12 06:07] LABS: Atypical Lymph Absolute Manual 0.3 x10*3/uL; Atypical Lymphs Percent Manual 6 % (0-6); Band Neutrophils Percent 16 % (3-5); Basophils Percent Manual 1 % (0-2); Eosinophils Absolute Manual 0.6 X10*3/uL (0.0-0.4); Eosinophils Percent Manual 13 % (0-4); Lymphocytes Absolute Manual 0.6 X10*3/uL (1.2-4.9); Lymphocytes Percent Manual 13 % (20-40); Monocytes Absolute Manual 0.9 X10*3/uL (0.1-1.2); Monocytes Percent Manual 20 % (2-11); Neutrophils Absolute Manual 2.2 X10*3/uL (2.0-8.3); Neutrophils Percent Manual 31 % (45-73)
[2024-12-12 06:08] LABS: Dohle Bodies PRESENT; Hypochromasia 1+ (5-14) /OIF; Microcytosis 1+ (5-14) /OIF; Polychromasia 1+ (0-2) /OIF; RBC Morphology NOTED
[2024-12-12 06:14] LABS: Glucose, Whole Blood 285 mg/dL (60-115)
[2024-12-12 07:23] LABS: Glucose, Whole Blood 262 mg/dL (60-115)
--- NOTE | 2024-12-12 07:26 | PC.NURSE ---
Critical Care Nursing Note? Assumed care of the patient at 1900. Patient intubated, ACVC vent settings, patient stacking breaths and switched to ACPC settings around midnight. Levophed drip maintained, see EMAR for titrations. Afib on telemetry, with heart rate in the 140?s peaking to 160?s, PUBLICITY DIRECTOR aware, digoxin added, amiodarone gtt infusing. At 0100 heart rate still elevated in the 140?s, fentanyl 50mcg IVP administered, heart rate in the low 100?s. Potassium 40meq IV administered and 2 bags of KPhos.? Insulin infusion was titrated per protocol and direction of Justin Saavedra NP.? Report given to oncoming shift.
[2024-12-12] MEDS: Insulin Regular/NS 100 UNIT/100 ML PLAST..BAG 22 UNIT IVCONT ×2 (07:33→12:31)
[2024-12-12 08:17] LABS: Glucose, Whole Blood 266 mg/dL (60-115)
[2024-12-12 09:19] LABS: Glucose, Whole Blood 239 mg/dL (60-115)
[2024-12-12] MEDS: 0.9 % Sodium Chloride Flush 3 ML SYRINGE IVFLUSH ×2 (09:19→15:20)
[2024-12-12] MEDS: Albumin Human 25 % 100 ML IV ×2 (09:20→15:12)
[2024-12-12] MEDS: Furosemide 40 MG/4 ML VIAL IVPUSH (09:31)
[2024-12-12] MEDS: Insulin Glargine,Hum.rec.anlog 100 UNIT/ML 10 ML VIAL 20 UNIT SUBCUT (09:32)
--- NOTE | 2024-12-12 10:07 | PM.CCPN ---
Subjective Subjective Date of Service: 12/12/24 Interval History: 54-year-old gentleman with stage IV colon cancer on chemotherapy admitted on 12/05/2024 with abdominal pain secondary to sigmoid perforation with fecal peritonitis, now postoperative day 4 after laparotomy with sigmoid resection and placement of transverse colostomy, remains intubated after procedure. Polymicrobial bacteremia and peritonitis. Prolonged return of bowel function. Repeat CT abdomen with 2 abdominal collections. Also, AFib with RVR requiring amiodarone drip and high insulin requirements. No events overnight. Critical Care Time (minutes): 60 Physical Exam Vital Signs: Vital Signs: Last Vital Signs Temp 100.9 F H 12/12/24 09:00 Pulse 94 12/12/24 09:00 Resp 17 12/12/24 09:00 BP 117/64 12/12/24 09:00 Pulse Ox 96 12/12/24 09:00 O2 Del Method Mechanical Ventil ation 12/12/24 09:00 FiO2 35 12/12/24 09:00 BMI result Body Mass Index 30.5 Const: General: no acute distress and other (Sedated on ventilatory support) Eyes: Sclerae: sclerae normal Neck: Neck: Yes no lymphadenopathy, Yes trachea midline and Yes supple Resp: Effort & Inspection: normal respiratory effort and no respiratory distress Auscultation: clear to auscultation bilaterally Cardio: Rate: tachycardic Rhythm: abnormal rhythm irregularly irregular Heart sounds: no gallops, no murmurs and no rubs GI: Other: Ostomy with minimal serosanguineous output Palpation (GI): Soft to palpation and Other GI palpation findings present ( Nontender) Auscultation: Hypoactive bowel sounds present Extrem: General: Yes no pedal edema, No clubbing and No cyanosis Objective Data Labs 12/12/24 04:44 12/12/24 04:44 Labs: Laboratory Results - last 24 hr 12/11/24 12/11/24 12/11/24 11:17 16:11 16:29 WBC RBC Hgb Hct MCV MCH MCHC RDW Plt Count MPV Immature Gran % (Auto) Neut % (Auto) Lymph % (Auto) Garvin % (Auto) Eos % (Auto) Baso % (Auto) Lymph # (Auto) Garvin # (Auto) Eos # (Auto) Baso # (Auto) Abs Immat Gran (auto) Absolute Neuts (auto) Absolute Nucleated RBC Nucleated RBC % (auto) Neutrophils % (Manual) Band Neutrophils % Lymphocytes % (Manual) Atypical Lymphs % (Man) Monocytes % (Manual) Eosinophils % (Manual) Basophils % (Manual) Abs Neuts (Manual) Lymphocytes # (Manual) Atyp Lymphs # (Manual) Monocytes # (Manual) Eosinophils # (Manual) Nucleated RBCs Dohle Bodies Platelet Estimate Plt Morphology Comment RBC Morphology Polychromasia Hypochromasia Microcytosis VBG pH VBG pCO2 VBG pO2 VBG HCO3 VBG O2 Saturation VBG Base Excess Sodium Potassium Chloride Carbon Dioxide Anion Gap BUN Creatinine Estim Creat Clear Calc Estimated GFR POC Glucose 354 H* 359 H* Random Glucose Calcium Phosphorus Magnesium Albumin Random Vancomycin 20.6 H 12/11/24 12/11/24 12/11/24 17:58 19:04 20:01 WBC RBC Hgb Hct MCV MCH MCHC RDW Plt Count MPV Immature Gran % (Auto) Neut % (Auto) Lymph % (Auto) Garvin % (Auto) Eos % (Auto) Baso % (Auto) Lymph # (Auto) Garvin # (Auto) Eos # (Auto) Baso # (Auto) Abs Immat Gran (auto) Absolute Neuts (auto) Absolute Nucleated RBC Nucleated RBC % (auto) Neutrophils % (Manual) Band Neutrophils % Lymphocytes % (Manual) Atypical Lymphs % (Man) Monocytes % (Manual) Eosinophils % (Manual) Basophils % (Manual) Abs Neuts (Manual) Lymphocytes # (Manual) Atyp Lymphs # (Manual) Monocytes # (Manual) Eosinophils # (Manual) Nucleated RBCs Dohle Bodies Platelet Estimate Plt Morphology Comment RBC Morphology Polychromasia Hypochromasia Microcytosis VBG pH VBG pCO2 VBG pO2 VBG HCO3 VBG O2 Saturation VBG Base Excess Sodium Potassium Chloride Carbon Dioxide Anion Gap BUN Creatinine Estim Creat Clear Calc Estimated GFR POC Glucose 366 H* 332 H 358 H* Random Glucose Calcium Phosphorus Magnesium Albumin Random Vancomycin 12/11/24 12/11/24 12/11/24 21:07 22:06 23:03 WBC RBC Hgb Hct MCV MCH MCHC RDW Plt Count MPV Immature Gran % (Auto) Neut % (Auto) Lymph % (Auto) Garvin % (Auto) Eos % (Auto) Baso % (Auto) Lymph # (Auto) Garvin # (Auto) Eos # (Auto) Baso # (Auto) Abs Immat Gran (auto) Absolute Neuts (auto) Absolute Nucleated RBC Nucleated RBC % (auto) Neutrophils % (Manual) Band Neutrophils % Lymphocytes % (Manual) Atypical Lymphs % (Man) Monocytes % (Manual) Eosinophils % (Manual) Basophils % (Manual) Abs Neuts (Manual) Lymphocytes # (Manual) Atyp Lymphs # (Manual) Monocytes # (Manual) Eosinophils # (Manual) Nucleated RBCs Dohle Bodies Platelet Estimate Plt Morphology Comment RBC Morphology Polychromasia Hypochromasia Microcytosis VBG pH VBG pCO2 VBG pO2 VBG HCO3 VBG O2 Saturation VBG Base Excess Sodium Potassium Chloride Carbon Dioxide Anion Gap BUN Creatinine Estim Creat Clear Calc Estimated GFR POC Glucose 358 H* 351 H* 350 H* Random Glucose Calcium Phosphorus Magnesium Albumin Random Vancomycin 12/11/24 12/11/24 12/11/24 23:33 23:40 23:54 WBC RBC Hgb Hct MCV MCH MCHC RDW Plt Count MPV Immature Gran % (Auto) Neut % (Auto) Lymph % (Auto) Garvin % (Auto) Eos % (Auto) Baso % (Auto) Lymph # (Auto) Garvin # (Auto) Eos # (Auto) Baso # (Auto) Abs Immat Gran (auto) Absolute Neuts (auto) Absolute Nucleated RBC Nucleated RBC % (auto) Neutrophils % (Manual) Band Neutrophils % Lymphocytes % (Manual) Atypical Lymphs % (Man) Monocytes % (Manual) Eosinophils % (Manual) Basophils % (Manual) Abs Neuts (Manual) Lymphocytes # (Manual) Atyp Lymphs # (Manual) Monocytes # (Manual) Eosinophils # (Manual) Nucleated RBCs Dohle Bodies Platelet Estimate Plt Morphology Comment RBC Morphology Polychromasia Hypochromasia Microcytosis VBG pH 7.38 VBG pCO2 43 VBG pO2 54 VBG HCO3 25 VBG O2 Saturation 81.0 VBG Base Excess 0.8 Sodium 141 Potassium 3.0 L Chloride 107 Carbon Dioxide 23 Anion Gap 14 BUN 27 H Creatinine 1.42 H Estim Creat Clear Calc 60.0 Estimated GFR 52 POC Glucose 339 H Random Glucose 390 H* Calcium 8.3 L Phosphorus 1.5 L Magnesium 2.2 Albumin Random Vancomycin 12/12/24 12/12/24 12/12/24 01:14 01:54 03:00 WBC RBC Hgb Hct MCV MCH MCHC RDW Plt Count MPV Immature Gran % (Auto) Neut % (Auto) Lymph % (Auto) Garvin % (Auto) Eos % (Auto) Baso % (Auto) Lymph # (Auto) Garvin # (Auto) Eos # (Auto) Baso # (Auto) Abs Immat Gran (auto) Absolute Neuts (auto) Absolute Nucleated RBC Nucleated RBC % (auto) Neutrophils % (Manual) Band Neutrophils % Lymphocytes % (Manual) Atypical Lymphs % (Man) Monocytes % (Manual) Eosinophils % (Manual) Basophils % (Manual) Abs Neuts (Manual) Lymphocytes # (Manual) Atyp Lymphs # (Manual) Monocytes # (Manual) Eosinophils # (Manual) Nucleated RBCs Dohle Bodies Platelet Estimate Plt Morphology Comment RBC Morphology Polychromasia Hypochromasia Microcytosis VBG pH VBG pCO2 VBG pO2 VBG HCO3 VBG O2 Saturation VBG Base Excess Sodium Potassium Chloride Carbon Dioxide Anion Gap BUN Creatinine Estim Creat Clear Calc Estimated GFR POC Glucose 319 H 339 H 311 H Random Glucose Calcium Phosphorus Magnesium Albumin Random Vancomycin 12/12/24 12/12/24 12/12/24 03:51 04:44 04:52 WBC 4.6 L RBC 3.57 L Hgb 8.9 L Hct 27.7 L MCV 77.6 L MCH 24.9 L MCHC 32.1 RDW 19.7 H Plt Count 151 L MPV 11.6 Immature Gran % (Auto) Cancelled Neut % (Auto) Cancelled Lymph % (Auto) Cancelled Garvin % (Auto) Cancelled Eos % (Auto) Cancelled Baso % (Auto) Cancelled Lymph # (Auto) Cancelled Garvin # (Auto) Cancelled Eos # (Auto) Cancelled Baso # (Auto) Cancelled Abs Immat Gran (auto) Cancelled Absolute Neuts (auto) Cancelled Absolute Nucleated RBC 0.030 H Nucleated RBC % (auto) 0.6 H Neutrophils % (Manual) 31 L Band Neutrophils % 16 H Lymphocytes % (Manual) 13 L Atypical Lymphs % (Man) 6 Monocytes % (Manual) 20 H Eosinophils % (Manual) 13 H Basophils % (Manual) 1 Abs Neuts (Manual) 2.2 Lymphocytes # (Manual) 0.6 L Atyp Lymphs # (Manual) 0.3 Monocytes # (Manual) 0.9 Eosinophils # (Manual) 0.6 H Nucleated RBCs 1 H Dohle Bodies PRESENT Platelet Estimate NORMAL Plt Morphology Comment NORMAL RBC Morphology NOTED Polychromasia 1+ (0-2) Hypochromasia 1+ (5-14) Microcytosis 1+ (5-14) VBG pH 7.39 VBG pCO2 40 VBG pO2 46 VBG HCO3 25 VBG O2 Saturation 69.0 VBG Base Excess 0.5 Sodium 142 Potassium 3.6 Chloride 109 H Carbon Dioxide 21 L Anion Gap 16 BUN 27 H Creatinine 1.37 Estim Creat Clear Calc 61.7 Estimated GFR 54 POC Glucose 316 H Random Glucose 327 H Calcium 8.2 L Phosphorus 2.6 L Magnesium 2.2 Albumin 2.8 L Random Vancomycin 12/12/24 12/12/24 12/12/24 04:59 06:11 07:20 WBC RBC Hgb Hct MCV MCH MCHC RDW Plt Count MPV Immature Gran % (Auto) Neut % (Auto) Lymph % (Auto) Garvin % (Auto) Eos % (Auto) Baso % (Auto) Lymph # (Auto) Garvin # (Auto) Eos # (Auto) Baso # (Auto) Abs Immat Gran (auto) Absolute Neuts (auto) Absolute Nucleated RBC Nucleated RBC % (auto) Neutrophils % (Manual) Band Neutrophils % Lymphocytes % (Manual) Atypical Lymphs % (Man) Monocytes % (Manual) Eosinophils % (Manual) Basophils % (Manual) Abs Neuts (Manual) Lymphocytes # (Manual) Atyp Lymphs # (Manual) Monocytes # (Manual) Eosinophils # (Manual) Nucleated RBCs Dohle Bodies Platelet Estimate Plt Morphology Comment RBC Morphology Polychromasia Hypochromasia Microcytosis VBG pH VBG pCO2 VBG pO2 VBG HCO3 VBG O2 Saturation VBG Base Excess Sodium Potassium Chloride Carbon Dioxide Anion Gap BUN Creatinine Estim Creat Clear Calc Estimated GFR POC Glucose 293 H 285 H 262 H Random Glucose Calcium Phosphorus Magnesium Albumin Random Vancomycin 12/12/24 12/12/24 08:10 09:13 WBC RBC Hgb Hct MCV MCH MCHC RDW Plt Count MPV Immature Gran % (Auto) Neut % (Auto) Lymph % (Auto) Garvin % (Auto) Eos % (Auto) Baso % (Auto) Lymph # (Auto) Garvin # (Auto) Eos # (Auto) Baso # (Auto) Abs Immat Gran (auto) Absolute Neuts (auto) Absolute Nucleated RBC Nucleated RBC % (auto) Neutrophils % (Manual) Band Neutrophils % Lymphocytes % (Manual) Atypical Lymphs % (Man) Monocytes % (Manual) Eosinophils % (Manual) Basophils % (Manual) Abs Neuts (Manual) Lymphocytes # (Manual) Atyp Lymphs # (Manual) Monocytes # (Manual) Eosinophils # (Manual) Nucleated RBCs Dohle Bodies Platelet Estimate Plt Morphology Comment RBC Morphology Polychromasia Hypochromasia Microcytosis VBG pH VBG pCO2 VBG pO2 VBG HCO3 VBG O2 Saturation VBG Base Excess Sodium Potassium Chloride Carbon Dioxide Anion Gap BUN Creatinine Estim Creat Clear Calc Estimated GFR POC Glucose 266 H 239 H Random Glucose Calcium Phosphorus Magnesium Albumin Random Vancomycin Microbiology Microbiology Results: Microbiology 12/09/24 08:54 Gastric Fluid Gram Stain - Final 12/09/24 08:54 Gastric Fluid Anaerobic Culture - Preliminary Culture in progress. 12/09/24 08:54 Gastric Fluid Body Fluid Culture - Preliminary Klebsiella pneumoniae 12/05/24 20:15 Peritoneal Fluid Gram Stain - Final 12/05/24 20:15 Peritoneal Fluid Routine Culture - Final Klebsiella pneumoniae Escherichia coli Bacillus species Pseudomonas species 12/05/24 20:15 Peritoneal Fluid Anaerobic Culture - Final 12/05/24 16:52 Blood - Venous Blood Culture - Final Escherichia coli Bacteroides fragilis group 12/05/24 16:52 Blood - Venous Blood Culture - Final Escherichia coli Bacteroides fragilis group Progress Note: A&P Assessment and plan (1) Atrial fibrillation with tachycardic ventricular rate: Status: Acute (2) Acute hypoxemic respiratory failure: Status: Acute (3) E coli bacteremia: Status: Acute (4) Colon cancer: Status: Acute (5) Peritonitis: Status: Acute (6) Perforated viscus: Status: Acute (7) Colonic mass: Status: Acute Plan Assessment: 54-year-old gentleman postoperative day 5 for sigmoidectomy and transverse colostomy for perforated sigmoid cancer remains intubated postop Plan: Neuro: No acute issues. Cardiac: AFib with RVR, continue amiodarone drip. Pulmonary: Acute hypoxic respiratory failure, remains intubated postop, continue to titrate off ventilatory support as tolerated. Renal: No acute issues. Endo: High insulin drip requirements, continue insulin drip. GI: Postoperative day 5 after sigmoidectomy with transverse colostomy for perforated sigmoid cancer. General surgery service care appreciated. Repeat CT abdomen with 2 abdominal collections. ID: Empiric coverage for polymicrobial peritonitis with polymicrobial Gram-negative bacteremia. Heme/Onc: Still with significant eosinophilia. Psych: No acute issues. Miscellaneous: No acute issues. Prophylaxis: Heparin, famotidine Diet: TPN, trophic tube feeds Critical care time spent: 60 minutes Quality Stroke Does the patient have a stroke diagnosis?: No VTE Prior VTE?: No VTE Risk Level:: Medical - moderate - high VTE Device Contraindication: N/A - Device Ordered VTE Drug Contraindication: N/A - Med Ordered
[2024-12-12 10:18] LABS: Glucose, Whole Blood 210 mg/dL (60-115)
[2024-12-12 11:10] LABS: Glucose, Whole Blood 212 mg/dL (60-115)
[2024-12-12 12:16] LABS: Glucose, Whole Blood 180 mg/dL (60-115)
[2024-12-12 13:03] LABS: Glucose, Whole Blood 179 mg/dL (60-115)
--- NOTE | 2024-12-12 13:53 | P.PNGS_ITS ---
Subjective Subjective Date of Service: 12/12/24 Interval history: Patient intubated in ICU sedated Physical Exam 2 Vital Signs: Vital Signs: Last Vital Signs Temp 101.5 F H 12/12/24 13:00 Pulse 110 H 12/12/24 13:31 Resp 20 12/12/24 13:00 BP 95/50 L 12/12/24 13:31 Pulse Ox 96 12/12/24 13:00 O2 Del Method Mechanical Ventil ation 12/12/24 13:00 FiO2 35 12/12/24 13:00 BMI result Body Mass Index 30.5 GI: Other: Abdomen is large quiet ostomy looks pink and viable. Little bit of liquid present in bag. Objective Data Active Medications Chlorhexidine Gluconate (Chlorhexidine Gluc Oral Rinse 15 Ml Mouthwash) 15 ml BUCCAL Q8H [place] Last Admin: 12/12/24 09:34 Dose: 15 ml Documented By: LINCOLN Dextrose (Dextrose 50 % 25 Gm/50 Ml Syringe) 25 gm IVPUSH Q15M PRN; Protocol PRN Reason: per Hypoglycemia Standing Ord. Dextrose (Dextrose 50 % 25 Gm/50 Ml Syringe) 25 gm IVPUSH Q15M PRN PRN Reason: per Hypoglycemia Standing Ord. Digoxin (Digoxin 0.5 Mg/2 Ml Ampul) 0.25 mg IVPUSH Q6H [place]; Protocol Stop: 12/12/24 15:01 Last Admin: 12/12/24 09:41 Dose: 0.25 mg Documented By: LINCOLN Furosemide (Furosemide 40 Mg/4 Ml Vial) 40 mg IVPUSH DAILY [place]; Protocol Last Admin: 12/12/24 09:31 Dose: 40 mg Documented By: LINCOLN Glucose (Glucose Gel 15 Gm Gel..Gram.) 15 gm PO Q15M PRN; Protocol PRN Reason: per Hypoglycemia Standing Ord. Heparin Sodium (Porcine) (Heparin Sodium,Porcine 5,000 Unit/Ml Vial) 5,000 unit SUBCUT Q8H [place] Last Admin: 12/12/24 11:22 Dose: 5,000 unit Documented By: LINCOLN Piperacillin Sod/Tazobactam (Sod 3.375 gm/ Sodium Chloride) 50 mls @ 100 mls/hr IV Q6H [facility] [place] Last Infusion: 12/12/24 13:13 Dose: Infused Documented By: LINCOLN Propofol (Diprivan) 1,000 mg in 100 mls @ 0 mls/hr IVCONT .Q0M [place]; Protocol Last Admin: 12/12/24 10:02 Dose: 40 mcg/kg/min, 20.69 mls/hr Documented By: LINCOLN Norepinephrine Bitartrate (Levophed) 8 mg in 250 mls @ 0 mls/hr IVCONT .Q0M [place]; Protocol Last Titration: 12/12/24 13:31 Dose: 0.08 mcg/kg/min, 12.93 mls/hr Documented By: LINCOLN Fluconazole (Diflucan) 200 mg in 100 mls @ 100 mls/hr IV Q24H [place] Last Infusion: 12/11/24 22:56 Dose: Infused Documented By: GAYATHRI Amiodarone HCl 900 mg/ Sodium (Chloride) 518 mls @ 34.533 mls/hr IVCONT .Q15H1M [place] Last Admin: 12/12/24 04:59 Dose: 1 mg/min, 34.53 mls/hr Documented By: GAYATHRI Nutrition (Parenteral) (Parenteral Nutrition) 1,920 mls @ 80 mls/hr IV .Q24H [place]; Protocol Stop: 12/12/24 20:59 Last Admin: 12/11/24 20:51 Dose: 80 mls/hr Documented By: GAYATHRI Insulin Human Regular (Myxredlin) 100 unit in 100 mls @ 0 mls/hr IVCONT .Q0M [place]; Protocol Last Titration: 12/12/24 12:36 Dose: 21 unit/hr, 21 mls/hr Documented By: LINCOLN Co-signed By: MAIA Albumin Human (Kedbumin 25 %) 100 mls @ 100 mls/hr IV Q6H [place] Stop: 12/12/24 14:59 Last Infusion: 12/12/24 10:34 Dose: Infused Documented By: LINCOLN Nutrition (Parenteral) (Parenteral Nutrition) 1,920 mls @ 80 mls/hr IV .Q24H [place]; Protocol Stop: 12/13/24 20:59 Insulin Glargine (Insulin Glargine,Hum.Rec.Anlog 100 Unit/Ml 10 Ml Vial) 20 unit SUBCUT DAILY [place] Last Admin: 12/12/24 09:32 Dose: 20 unit Documented By: LINCOLN Magnesium Hydroxide (Milk Of Magnesia 30 Ml Oral.Susp) 30 ml PO DAILY PRN PRN Reason: Constipation Melatonin (Melatonin 3 Mg Tablet) 6 mg PO BEDTIME PRN PRN Reason: Insomnia Naloxone HCl (Naloxone Hcl 0.4 Mg/Ml Vial) 0.2 mg IVPUSH Q2M PRN PRN Reason: Excessive sedation or RR < 8 Pharmacy Consult (Consult Rx Parenteral Nutrition Ordering) 1 each MISCELLANE DAILY PRN PRN Reason: Consult order Sodium Chloride (0.9 % Sodium Chloride Flush 3 Ml Syringe) 3 ml IVFLUSH QSHIFT [facility] [place] Last Admin: 12/12/24 09:19 Dose: 3 ml Documented By: LINCOLN Labs 12/12/24 04:44 12/12/24 04:44 Labs: Laboratory Results - last 24 hr 12/11/24 12/11/24 12/11/24 16:11 16:29 17:58 MCV MCH MCHC RDW Plt Count MPV Immature Gran % (Auto) Neut % (Auto) Lymph % (Auto) Grand % (Auto) Eos % (Auto) Baso % (Auto) Lymph # (Auto) Grand # (Auto) Eos # (Auto) Baso # (Auto) Abs Immat Gran (auto) Absolute Neuts (auto) Absolute Nucleated RBC Nucleated RBC % (auto) Neutrophils % (Manual) Band Neutrophils % Lymphocytes % (Manual) Atypical Lymphs % (Man) Monocytes % (Manual) Eosinophils % (Manual) Basophils % (Manual) Abs Neuts (Manual) Lymphocytes # (Manual) Atyp Lymphs # (Manual) Monocytes # (Manual) Eosinophils # (Manual) Nucleated RBCs Dohle Bodies Platelet Estimate Plt Morphology Comment RBC Morphology Polychromasia Hypochromasia Microcytosis VBG pH VBG pCO2 VBG pO2 VBG HCO3 VBG O2 Saturation VBG Base Excess Anion Gap Estim Creat Clear Calc Estimated GFR POC Glucose 359 H* 366 H* Random Glucose Calcium Phosphorus Magnesium Albumin Random Vancomycin 20.6 H 12/11/24 12/11/24 12/11/24 19:04 20:01 21:07 MCV MCH MCHC RDW Plt Count MPV Immature Gran % (Auto) Neut % (Auto) Lymph % (Auto) Grand % (Auto) Eos % (Auto) Baso % (Auto) Lymph # (Auto) Grand # (Auto) Eos # (Auto) Baso # (Auto) Abs Immat Gran (auto) Absolute Neuts (auto) Absolute Nucleated RBC Nucleated RBC % (auto) Neutrophils % (Manual) Band Neutrophils % Lymphocytes % (Manual) Atypical Lymphs % (Man) Monocytes % (Manual) Eosinophils % (Manual) Basophils % (Manual) Abs Neuts (Manual) Lymphocytes # (Manual) Atyp Lymphs # (Manual) Monocytes # (Manual) Eosinophils # (Manual) Nucleated RBCs Dohle Bodies Platelet Estimate Plt Morphology Comment RBC Morphology Polychromasia Hypochromasia Microcytosis VBG pH VBG pCO2 VBG pO2 VBG HCO3 VBG O2 Saturation VBG Base Excess Anion Gap Estim Creat Clear Calc Estimated GFR POC Glucose 332 H 358 H* 358 H* Random Glucose Calcium Phosphorus Magnesium Albumin Random Vancomycin 12/11/24 12/11/24 12/11/24 22:06 23:03 23:33 MCV MCH MCHC RDW Plt Count MPV Immature Gran % (Auto) Neut % (Auto) Lymph % (Auto) Grand % (Auto) Eos % (Auto) Baso % (Auto) Lymph # (Auto) Grand # (Auto) Eos # (Auto) Baso # (Auto) Abs Immat Gran (auto) Absolute Neuts (auto) Absolute Nucleated RBC Nucleated RBC % (auto) Neutrophils % (Manual) Band Neutrophils % Lymphocytes % (Manual) Atypical Lymphs % (Man) Monocytes % (Manual) Eosinophils % (Manual) Basophils % (Manual) Abs Neuts (Manual) Lymphocytes # (Manual) Atyp Lymphs # (Manual) Monocytes # (Manual) Eosinophils # (Manual) Nucleated RBCs Dohle Bodies Platelet Estimate Plt Morphology Comment RBC Morphology Polychromasia Hypochromasia Microcytosis VBG pH VBG pCO2 VBG pO2 VBG HCO3 VBG O2 Saturation VBG Base Excess Anion Gap 14 Estim Creat Clear Calc 60.0 Estimated GFR 52 POC Glucose 351 H* 350 H* Random Glucose 390 H* Calcium 8.3 L Phosphorus 1.5 L Magnesium 2.2 Albumin Random Vancomycin 12/11/24 12/11/24 12/12/24 23:40 23:54 01:14 MCV MCH MCHC RDW Plt Count MPV Immature Gran % (Auto) Neut % (Auto) Lymph % (Auto) Grand % (Auto) Eos % (Auto) Baso % (Auto) Lymph # (Auto) Grand # (Auto) Eos # (Auto) Baso # (Auto) Abs Immat Gran (auto) Absolute Neuts (auto) Absolute Nucleated RBC Nucleated RBC % (auto) Neutrophils % (Manual) Band Neutrophils % Lymphocytes % (Manual) Atypical Lymphs % (Man) Monocytes % (Manual) Eosinophils % (Manual) Basophils % (Manual) Abs Neuts (Manual) Lymphocytes # (Manual) Atyp Lymphs # (Manual) Monocytes # (Manual) Eosinophils # (Manual) Nucleated RBCs Dohle Bodies Platelet Estimate Plt Morphology Comment RBC Morphology Polychromasia Hypochromasia Microcytosis VBG pH 7.38 VBG pCO2 43 VBG pO2 54 VBG HCO3 25 VBG O2 Saturation 81.0 VBG Base Excess 0.8 Anion Gap Estim Creat Clear Calc Estimated GFR POC Glucose 339 H 319 H Random Glucose Calcium Phosphorus Magnesium Albumin Random Vancomycin 12/12/24 12/12/24 12/12/24 01:54 03:00 03:51 MCV MCH MCHC RDW Plt Count MPV Immature Gran % (Auto) Neut % (Auto) Lymph % (Auto) Grand % (Auto) Eos % (Auto) Baso % (Auto) Lymph # (Auto) Grand # (Auto) Eos # (Auto) Baso # (Auto) Abs Immat Gran (auto) Absolute Neuts (auto) Absolute Nucleated RBC Nucleated RBC % (auto) Neutrophils % (Manual) Band Neutrophils % Lymphocytes % (Manual) Atypical Lymphs % (Man) Monocytes % (Manual) Eosinophils % (Manual) Basophils % (Manual) Abs Neuts (Manual) Lymphocytes # (Manual) Atyp Lymphs # (Manual) Monocytes # (Manual) Eosinophils # (Manual) Nucleated RBCs Dohle Bodies Platelet Estimate Plt Morphology Comment RBC Morphology Polychromasia Hypochromasia Microcytosis VBG pH VBG pCO2 VBG pO2 VBG HCO3 VBG O2 Saturation VBG Base Excess Anion Gap Estim Creat Clear Calc Estimated GFR POC Glucose 339 H 311 H 316 H Random Glucose Calcium Phosphorus Magnesium Albumin Random Vancomycin 12/12/24 12/12/24 12/12/24 04:44 04:52 04:59 MCV 77.6 L MCH 24.9 L MCHC 32.1 RDW 19.7 H Plt Count 151 L MPV 11.6 Immature Gran % (Auto) Cancelled Neut % (Auto) Cancelled Lymph % (Auto) Cancelled Grand % (Auto) Cancelled Eos % (Auto) Cancelled Baso % (Auto) Cancelled Lymph # (Auto) Cancelled Grand # (Auto) Cancelled Eos # (Auto) Cancelled Baso # (Auto) Cancelled Abs Immat Gran (auto) Cancelled Absolute Neuts (auto) Cancelled Absolute Nucleated RBC 0.030 H Nucleated RBC % (auto) 0.6 H Neutrophils % (Manual) 31 L Band Neutrophils % 16 H Lymphocytes % (Manual) 13 L Atypical Lymphs % (Man) 6 Monocytes % (Manual) 20 H Eosinophils % (Manual) 13 H Basophils % (Manual) 1 Abs Neuts (Manual) 2.2 Lymphocytes # (Manual) 0.6 L Atyp Lymphs # (Manual) 0.3 Monocytes # (Manual) 0.9 Eosinophils # (Manual) 0.6 H Nucleated RBCs 1 H Dohle Bodies PRESENT Platelet Estimate NORMAL Plt Morphology Comment NORMAL RBC Morphology NOTED Polychromasia 1+ (0-2) Hypochromasia 1+ (5-14) Microcytosis 1+ (5-14) VBG pH 7.39 VBG pCO2 40 VBG pO2 46 VBG HCO3 25 VBG O2 Saturation 69.0 VBG Base Excess 0.5 Anion Gap 16 Estim Creat Clear Calc 61.7 Estimated GFR 54 POC Glucose 293 H Random Glucose 327 H Calcium 8.2 L Phosphorus 2.6 L Magnesium 2.2 Albumin 2.8 L Random Vancomycin 12/12/24 12/12/24 12/12/24 06:11 07:20 08:10 MCV MCH MCHC RDW Plt Count MPV Immature Gran % (Auto) Neut % (Auto) Lymph % (Auto) Grand % (Auto) Eos % (Auto) Baso % (Auto) Lymph # (Auto) Grand # (Auto) Eos # (Auto) Baso # (Auto) Abs Immat Gran (auto) Absolute Neuts (auto) Absolute Nucleated RBC Nucleated RBC % (auto) Neutrophils % (Manual) Band Neutrophils % Lymphocytes % (Manual) Atypical Lymphs % (Man) Monocytes % (Manual) Eosinophils % (Manual) Basophils % (Manual) Abs Neuts (Manual) Lymphocytes # (Manual) Atyp Lymphs # (Manual) Monocytes # (Manual) Eosinophils # (Manual) Nucleated RBCs Dohle Bodies Platelet Estimate Plt Morphology Comment RBC Morphology Polychromasia Hypochromasia Microcytosis VBG pH VBG pCO2 VBG pO2 VBG HCO3 VBG O2 Saturation VBG Base Excess Anion Gap Estim Creat Clear Calc Estimated GFR POC Glucose 285 H 262 H 266 H Random Glucose Calcium Phosphorus Magnesium Albumin Random Vancomycin 12/12/24 12/12/24 12/12/24 09:13 10:13 11:05 MCV MCH MCHC RDW Plt Count MPV Immature Gran % (Auto) Neut % (Auto) Lymph % (Auto) Grand % (Auto) Eos % (Auto) Baso % (Auto) Lymph # (Auto) Grand # (Auto) Eos # (Auto) Baso # (Auto) Abs Immat Gran (auto) Absolute Neuts (auto) Absolute Nucleated RBC Nucleated RBC % (auto) Neutrophils % (Manual) Band Neutrophils % Lymphocytes % (Manual) Atypical Lymphs % (Man) Monocytes % (Manual) Eosinophils % (Manual) Basophils % (Manual) Abs Neuts (Manual) Lymphocytes # (Manual) Atyp Lymphs # (Manual) Monocytes # (Manual) Eosinophils # (Manual) Nucleated RBCs Dohle Bodies Platelet Estimate Plt Morphology Comment RBC Morphology Polychromasia Hypochromasia Microcytosis VBG pH VBG pCO2 VBG pO2 VBG HCO3 VBG O2 Saturation VBG Base Excess Anion Gap Estim Creat Clear Calc Estimated GFR POC Glucose 239 H 210 H 212 H Random Glucose Calcium Phosphorus Magnesium Albumin Random Vancomycin 12/12/24 12/12/24 12:10 12:58 MCV MCH MCHC RDW Plt Count MPV Immature Gran % (Auto) Neut % (Auto) Lymph % (Auto) Grand % (Auto) Eos % (Auto) Baso % (Auto) Lymph # (Auto) Grand # (Auto) Eos # (Auto) Baso # (Auto) Abs Immat Gran (auto) Absolute Neuts (auto) Absolute Nucleated RBC Nucleated RBC % (auto) Neutrophils % (Manual) Band Neutrophils % Lymphocytes % (Manual) Atypical Lymphs % (Man) Monocytes % (Manual) Eosinophils % (Manual) Basophils % (Manual) Abs Neuts (Manual) Lymphocytes # (Manual) Atyp Lymphs # (Manual) Monocytes # (Manual) Eosinophils # (Manual) Nucleated RBCs Dohle Bodies Platelet Estimate Plt Morphology Comment RBC Morphology Polychromasia Hypochromasia Microcytosis VBG pH VBG pCO2 VBG pO2 VBG HCO3 VBG O2 Saturation VBG Base Excess Anion Gap Estim Creat Clear Calc Estimated GFR POC Glucose 180 H 179 H Random Glucose Calcium Phosphorus Magnesium Albumin Random Vancomycin Microbiology Microbiology Results: Microbiology 12/09/24 08:54 Gram Stain - Final Gastric Fluid Anaerobic Culture - Preliminary Culture in progress. 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 Found to have profound fecal contamination and fecal peritonitis throughout the entire peritoneal cavity. Remains intubated in ICU on pressors, IVF. UOP adequate. Patient continues to be ill in the ICU on pressors tachycardic. Despite this the ostomy looks viable pink and healthy. At this point plan to continue with supportive critical care resuscitation as per ICU team. Tolerating tube feeds at 20 cc an hour and ostomy once again no significant output as yet.. LEÓN drain with serosanguineous fluid and skin changes in the left lower quadrant not very concerning at this point. We will continue to follow continue to follow up Time Spent With Patient Time: Total time managing care of this patient today ____ minutes. Quality Stroke Does the patient have a stroke diagnosis?: No VTE Prior VTE?: No VTE Risk Level:: Medical - moderate - high VTE Device Contraindication: N/A - Device Ordered VTE Drug Contraindication: N/A - Med Ordered
[2024-12-12 14:13] LABS: Glucose, Whole Blood 171 mg/dL (60-115)
[2024-12-12 15:58] LABS: Glucose, Whole Blood 156 mg/dL (60-115)
[2024-12-12 16:19] LABS: Glucose, Whole Blood 157 mg/dL (60-115)
[2024-12-12] MEDS: Insulin Regular/NS 100 UNIT/100 ML PLAST..BAG 20 UNIT IVCONT (17:03)
[2024-12-12 17:08] LABS: Glucose, Whole Blood 144 mg/dL (60-115)
--- NOTE | 2024-12-12 17:56 | PC.NURSE ---
assumed care 0700 on 12/12/24 Patient intubated and sedated, Propfol (per MAR) Rass -4 most of shift, occasionally breaks through sedation and will open eyes briefly with care. extremities flaccid. restraints discontinued. +cough, no gag, no tracking. pupils sluggish. Multiple cardiac changes throughout shift from A-Flutter to A-Fib, PACs and PVCs, anywhere from 90s to 130s. Few levophed titrations required today and Amiodarone unchanged.(see MAR) 7.5 ETT, 22 at the lip, poor dentition, bleeding gums with oral care, Vent settings unchanged, No SAT or PSV trials today, patient not eligable for extubation today. breathing at the set rate on PC settings (see vent assessment) Abdomen with faint hypoactive bowels, firm on palpation, distended and round, LEÓN drain to LLQ draining moderate amount of serous fluid, ostomy draining clear red/orange tinged liquid, still no solid stool output. During bed bath today, surgical dressing peeling and purulent drainage visualized through dressing, all abdominal dressings changed, see midline surgical site photo. Sanchez Cath patent, draining clear yellow urine. Multiple rashes visualized, see skin photos below, posterior L arm rash, posterior torso diffuse rash, R Flank dark red blanchable area, LEÓN Drain LLQ, LEÓN drain Removal Site RLQ, Midline surgical incision.
[2024-12-12 18:10] LABS: Glucose, Whole Blood 128 mg/dL (60-115)
[2024-12-12 19:12] LABS: Glucose, Whole Blood 140 mg/dL (60-115)
[2024-12-12 20:11] LABS: Glucose, Whole Blood 134 mg/dL (60-115)
[2024-12-12] MEDS: Parenteral Nutrition 1,920 ML 80 ML IV (20:56)
[2024-12-12 20:59] LABS: Glucose, Whole Blood 125 mg/dL (60-115)
[2024-12-12] MEDS: Hydrocortisone 1 % Cream 28.35 GM TUBE 1 APPL TOPICAL (21:48)
[2024-12-12 22:09] LABS: Glucose, Whole Blood 122 mg/dL (60-115)
[2024-12-12 23:04] LABS: Glucose, Whole Blood 112 mg/dL (60-115)
[2024-12-12] MEDS: Insulin Regular/NS 100 UNIT/100 ML PLAST..BAG 10 UNIT IVCONT (23:06)
[2024-12-13] VITALS (37 sets, daily range): BP systolic 98–155; BP diastolic 47–86; PULSE 76–123; RESP 18–29; TEMP 34.9–39; O2SAT 91–99; BMI 30.6
[2024-12-13 00:11] LABS: Glucose, Whole Blood 117 mg/dL (60-115)
[2024-12-13] MEDS: 0.9 % Sodium Chloride Flush 3 ML SYRINGE IVFLUSH ×4 (00:15→23:09)
[2024-12-13 01:04] LABS: Glucose, Whole Blood 117 mg/dL (60-115)
[2024-12-13] MEDS: Chlorhexidine Gluc Oral Rinse 15 ML MOUTHWASH BUCCAL ×3 (01:40→17:26)
[2024-12-13 02:06] LABS: Glucose, Whole Blood 125 mg/dL (60-115)
[2024-12-13 03:11] LABS: Glucose, Whole Blood 136 mg/dL (60-115)
[2024-12-13 04:01] LABS: Glucose, Whole Blood 128 mg/dL (60-115)
[2024-12-13 05:09] LABS: Hematocrit 25.7 % (42.0-52.0); Hemoglobin 8.2 g/dl (14.0-18.0); Mean Corpuscular HGB Conc 31.9 g/dl (31.0-36.0); Mean Corpuscular Hemoglobin 24.0 pg (27.0-33.0); Mean Corpuscular Volume 75.1 fL (80.0-98.0); NRBC Abs Auto 0.060 X10*3/uL (0.0-0.012); NRBC Pct Auto 0.8 /100WBC (0.0-0.2); Platelet Count 237 X10*3/uL (160-400); Red Blood Count 3.42 X10*6/uL (4.60-5.80)
[2024-12-13 05:12] LABS: Glucose, Whole Blood 134 mg/dL (60-115)
[2024-12-13 05:35] LABS: Alanine Aminotransferase < 6 U/L (0-40); Albumin Level 2.9 g/dL (3.5-5.0); Alkaline Phosphatase 57 U/L (39-117); Anion Gap 15 (12-20); Aspartate Amino Transferase 35 U/L (5-37); Blood Urea Nitrogen 28 mg/dL (9-16); Calcium 8.3 mg/dL (8.4-10.2); Carbon Dioxide 22 mmol/L (22-29); Chloride 109 mmol/L (96-108); Creatinine Clr Calc Pharmacy 63.2; Estimated Glomerular Filt Rate 55; Magnesium 2.3 mg/dL (1.6-2.6); Potassium 3.3 mmol/L (3.3-5.1); Sodium 143 mmol/L (135-145); Total Protein 5.3 g/dL (6.5-8.0)
[2024-12-13 05:40] LABS: WBC ABN SCTR FOR CBC 1
[2024-12-13 05:50] LABS: VBG HCO3 25 mmol/L (22-26); VBG O2 % Saturation 68.0 %
[2024-12-13 06:10] LABS: Glucose, Whole Blood 152 mg/dL (60-115)
[2024-12-13] MEDS: Potassium Chloride/H20 40 MEQ/100 ML PIGGYBACK 100 MEQ IV (06:17)
[2024-12-13 06:18] LABS: Atypical Lymphs Percent Manual 5 % (0-6); Band Neutrophils Percent 10 % (3-5); Basophils Percent Manual 1 % (0-2); Eosinophils Percent Manual 9 % (0-4); Lymphocytes Percent Manual 13 % (20-40); Metamyelocytes Percent 1 %; Monocytes Percent Manual 10 % (2-11); Neutrophils Percent Manual 51 % (45-73); RBC Morphology NOTED
[2024-12-13 06:19] LABS: Large Platelet PRESENT; Microcytosis 1+ (5-14) /OIF; Schistocytes 1+ (0-2) /OIF; Spherocytes 2+ (3-5) /OIF; Target Cells 1+ (5-14) /OIF
[2024-12-13 06:20] LABS: Dohle Bodies PRESENT; Smudge Cells PRESENT; Toxic Granulation PRESENT; Toxic Vacuolation PRESENT
--- NOTE | 2024-12-13 07:00 | PC.NURSE ---
Critical Care Nursing Note? Assumed care of the patient at 1900. Patient intubated, ACPC settings. Levophed drip maintained, see EMAR for titrations. Afib on telemetry, amiodarone gtt infusing.? Insulin infusion? titrated per protocol and with the direction of Justin Saavedra NP.? Chest x-ray was obtained for concern for ETT deviation; patient with audible leak on expiration and increasing difficulty passing garcia for deep suctioning.? This curriculum writer and CONSUMER RELATIONS SPECIALIST voiced concern to BANKING REPRESENTATIVE, at the beginning of the shift the cough leak was audible and? corrected with positioning, the ETT garcia met with some resistance but became greater throughout the shift.? Report given to oncoming shift.
[2024-12-13 07:21] LABS: Glucose, Whole Blood 155 mg/dL (60-115)
[2024-12-13] MEDS: Albumin Human 25 % 100 ML IV (07:26)
[2024-12-13] MEDS: Insulin Regular/NS 100 UNIT/100 ML PLAST..BAG 11 UNIT IVCONT (08:07)
[2024-12-13 08:13] LABS: Glucose, Whole Blood 164 mg/dL (60-115)
[2024-12-13] MEDS: Hydrocortisone 1 % Cream 28.35 GM TUBE 1 APPL TOPICAL ×2 (08:36→21:14)
[2024-12-13] MEDS: Furosemide 40 MG/4 ML VIAL IVPUSH (08:36)
[2024-12-13] MEDS: Insulin Glargine,Hum.rec.anlog 100 UNIT/ML 10 ML VIAL 20 UNIT SUBCUT (08:37)
[2024-12-13 08:38] LABS: Atypical Lymph Absolute Manual 0.4 x10*3/uL; Basophils Abs Manual 0.1 X10*3/uL (0.0-0.2); Eosinophils Absolute Manual 0.7 X10*3/uL (0.0-0.4); Lymphocytes Absolute Manual 1.0 X10*3/uL (1.2-4.9); Metamyelocytes Absolute 0.1 X10*3/uL; Monocytes Absolute Manual 0.8 X10*3/uL (0.1-1.2); Neutrophils Absolute Manual 4.8 X10*3/uL (2.0-8.3); White Blood Count 7.9 X10*3/uL (4.8-10.8)
[2024-12-13 09:13] LABS: Glucose, Whole Blood 159 mg/dL (60-115)
[2024-12-13 09:17] LABS: Venous Blood Gas Refer to POC result
[2024-12-13 10:05] LABS: Glucose, Whole Blood 162 mg/dL (60-115)
--- NOTE | 2024-12-13 10:44 | P.PNCC_ITS ---
Subjective Subjective Date of Service: 12/13/24 Interval History: 54-year-old gentleman with stage IV colon cancer on chemotherapy admitted on 12/05/2024 with abdominal pain secondary to sigmoid perforation with fecal peritonitis, now status post laparotomy with sigmoid resection and placement of transverse colostomy on 12/05/2024, remains intubated after procedure. Polymicrobial bacteremia and peritonitis. Prolonged return of bowel function. Repeat CT abdomen with 2 abdominal collections. Also, AFib with RVR requiring amiodarone drip and high insulin requirements. No events overnight. Insulin drip requirements are improving. Critical Care Time (minutes): 60 Physical Exam 2 Vital Signs: Vital Signs: Last Vital Signs Temp 101.1 F H 12/13/24 10:00 Pulse 105 H 12/13/24 10:00 Resp 22 H 12/13/24 10:00 BP 107/61 12/13/24 10:00 Pulse Ox 94 12/13/24 10:00 O2 Del Method Mechanical Ventil ation 12/13/24 10:00 FiO2 30 12/13/24 10:00 BMI result Body Mass Index 30.6 Const: General: no acute distress and other (Sedated on ventilatory support) Eyes: Sclerae: sclerae normal EOM: EOMs intact bilaterally Neck: Neck: Yes no lymphadenopathy, Yes trachea midline and Yes supple Resp: Auscultation: clear to auscultation bilaterally Cardio: Rate: regular rate Rhythm: regular rhythm Heart sounds: no gallops, no murmurs and no rubs GI: Other: Ostomy with minimal serosanguineous output Palpation (GI): Soft to palpation and Other GI palpation findings present ( Nontender) Auscultation: Hypoactive bowel sounds present Extrem: General: Yes no pedal edema, No clubbing and No cyanosis Objective Data Labs 12/13/24 04:45 12/13/24 04:45 Labs: Laboratory Results - last 24 hr 12/12/24 12/12/24 12/12/24 11:05 12:10 12:58 WBC RBC Hgb Hct MCV MCH MCHC RDW Plt Count MPV Immature Gran % (Auto) Neut % (Auto) Lymph % (Auto) [place] % (Auto) Eos % (Auto) Baso % (Auto) Lymph # (Auto) [place] # (Auto) Eos # (Auto) Baso # (Auto) Abs Immat Gran (auto) Absolute Neuts (auto) Absolute Nucleated RBC Nucleated RBC % (auto) Neutrophils % (Manual) Band Neutrophils % Lymphocytes % (Manual) Atypical Lymphs % (Man) Monocytes % (Manual) Eosinophils % (Manual) Basophils % (Manual) Metamyelocytes % Abs Neuts (Manual) Lymphocytes # (Manual) Atyp Lymphs # (Manual) Monocytes # (Manual) Eosinophils # (Manual) Basophils # (Manual) Metamyelocytes # Smudge Cells Toxic Granulation Toxic Vacuolation Dohle Bodies Platelet Estimate Large Platelets Plt Morphology Comment RBC Morphology Microcytosis Spherocytes Target Cells Schistocytes VBG pH VBG pCO2 VBG pO2 VBG HCO3 VBG O2 Saturation VBG Base Excess Sodium Potassium Chloride Carbon Dioxide Anion Gap BUN Creatinine Estim Creat Clear Calc Estimated GFR POC Glucose 212 H 180 H 179 H Random Glucose Calcium Phosphorus Magnesium Total Bilirubin AST ALT Alkaline Phosphatase Total Protein Albumin 12/12/24 12/12/24 12/12/24 14:07 15:54 16:13 WBC RBC Hgb Hct MCV MCH MCHC RDW Plt Count MPV Immature Gran % (Auto) Neut % (Auto) Lymph % (Auto) [place] % (Auto) Eos % (Auto) Baso % (Auto) Lymph # (Auto) [place] # (Auto) Eos # (Auto) Baso # (Auto) Abs Immat Gran (auto) Absolute Neuts (auto) Absolute Nucleated RBC Nucleated RBC % (auto) Neutrophils % (Manual) Band Neutrophils % Lymphocytes % (Manual) Atypical Lymphs % (Man) Monocytes % (Manual) Eosinophils % (Manual) Basophils % (Manual) Metamyelocytes % Abs Neuts (Manual) Lymphocytes # (Manual) Atyp Lymphs # (Manual) Monocytes # (Manual) Eosinophils # (Manual) Basophils # (Manual) Metamyelocytes # Smudge Cells Toxic Granulation Toxic Vacuolation Dohle Bodies Platelet Estimate Large Platelets Plt Morphology Comment RBC Morphology Microcytosis Spherocytes Target Cells Schistocytes VBG pH VBG pCO2 VBG pO2 VBG HCO3 VBG O2 Saturation VBG Base Excess Sodium Potassium Chloride Carbon Dioxide Anion Gap BUN Creatinine Estim Creat Clear Calc Estimated GFR POC Glucose 171 H 156 H 157 H Random Glucose Calcium Phosphorus Magnesium Total Bilirubin AST ALT Alkaline Phosphatase Total Protein Albumin 12/12/24 12/12/24 12/12/24 17:05 18:06 19:09 WBC RBC Hgb Hct MCV MCH MCHC RDW Plt Count MPV Immature Gran % (Auto) Neut % (Auto) Lymph % (Auto) [place] % (Auto) Eos % (Auto) Baso % (Auto) Lymph # (Auto) [place] # (Auto) Eos # (Auto) Baso # (Auto) Abs Immat Gran (auto) Absolute Neuts (auto) Absolute Nucleated RBC Nucleated RBC % (auto) Neutrophils % (Manual) Band Neutrophils % Lymphocytes % (Manual) Atypical Lymphs % (Man) Monocytes % (Manual) Eosinophils % (Manual) Basophils % (Manual) Metamyelocytes % Abs Neuts (Manual) Lymphocytes # (Manual) Atyp Lymphs # (Manual) Monocytes # (Manual) Eosinophils # (Manual) Basophils # (Manual) Metamyelocytes # Smudge Cells Toxic Granulation Toxic Vacuolation Dohle Bodies Platelet Estimate Large Platelets Plt Morphology Comment RBC Morphology Microcytosis Spherocytes Target Cells Schistocytes VBG pH VBG pCO2 VBG pO2 VBG HCO3 VBG O2 Saturation VBG Base Excess Sodium Potassium Chloride Carbon Dioxide Anion Gap BUN Creatinine Estim Creat Clear Calc Estimated GFR POC Glucose 144 H 128 H 140 H Random Glucose Calcium Phosphorus Magnesium Total Bilirubin AST ALT Alkaline Phosphatase Total Protein Albumin 12/12/24 12/12/24 12/12/24 20:08 20:56 22:06 WBC RBC Hgb Hct MCV MCH MCHC RDW Plt Count MPV Immature Gran % (Auto) Neut % (Auto) Lymph % (Auto) [place] % (Auto) Eos % (Auto) Baso % (Auto) Lymph # (Auto) [place] # (Auto) Eos # (Auto) Baso # (Auto) Abs Immat Gran (auto) Absolute Neuts (auto) Absolute Nucleated RBC Nucleated RBC % (auto) Neutrophils % (Manual) Band Neutrophils % Lymphocytes % (Manual) Atypical Lymphs % (Man) Monocytes % (Manual) Eosinophils % (Manual) Basophils % (Manual) Metamyelocytes % Abs Neuts (Manual) Lymphocytes # (Manual) Atyp Lymphs # (Manual) Monocytes # (Manual) Eosinophils # (Manual) Basophils # (Manual) Metamyelocytes # Smudge Cells Toxic Granulation Toxic Vacuolation Dohle Bodies Platelet Estimate Large Platelets Plt Morphology Comment RBC Morphology Microcytosis Spherocytes Target Cells Schistocytes VBG pH VBG pCO2 VBG pO2 VBG HCO3 VBG O2 Saturation VBG Base Excess Sodium Potassium Chloride Carbon Dioxide Anion Gap BUN Creatinine Estim Creat Clear Calc Estimated GFR POC Glucose 134 H 125 H 122 H Random Glucose Calcium Phosphorus Magnesium Total Bilirubin AST ALT Alkaline Phosphatase Total Protein Albumin 12/12/24 12/13/24 12/13/24 23:02 00:08 01:00 WBC RBC Hgb Hct MCV MCH MCHC RDW Plt Count MPV Immature Gran % (Auto) Neut % (Auto) Lymph % (Auto) [place] % (Auto) Eos % (Auto) Baso % (Auto) Lymph # (Auto) [place] # (Auto) Eos # (Auto) Baso # (Auto) Abs Immat Gran (auto) Absolute Neuts (auto) Absolute Nucleated RBC Nucleated RBC % (auto) Neutrophils % (Manual) Band Neutrophils % Lymphocytes % (Manual) Atypical Lymphs % (Man) Monocytes % (Manual) Eosinophils % (Manual) Basophils % (Manual) Metamyelocytes % Abs Neuts (Manual) Lymphocytes # (Manual) Atyp Lymphs # (Manual) Monocytes # (Manual) Eosinophils # (Manual) Basophils # (Manual) Metamyelocytes # Smudge Cells Toxic Granulation Toxic Vacuolation Dohle Bodies Platelet Estimate Large Platelets Plt Morphology Comment RBC Morphology Microcytosis Spherocytes Target Cells Schistocytes VBG pH VBG pCO2 VBG pO2 VBG HCO3 VBG O2 Saturation VBG Base Excess Sodium Potassium Chloride Carbon Dioxide Anion Gap BUN Creatinine Estim Creat Clear Calc Estimated GFR POC Glucose 112 117 H 117 H Random Glucose Calcium Phosphorus Magnesium Total Bilirubin AST ALT Alkaline Phosphatase Total Protein Albumin 12/13/24 12/13/24 12/13/24 02:03 03:07 03:58 WBC RBC Hgb Hct MCV MCH MCHC RDW Plt Count MPV Immature Gran % (Auto) Neut % (Auto) Lymph % (Auto) [place] % (Auto) Eos % (Auto) Baso % (Auto) Lymph # (Auto) [place] # (Auto) Eos # (Auto) Baso # (Auto) Abs Immat Gran (auto) Absolute Neuts (auto) Absolute Nucleated RBC Nucleated RBC % (auto) Neutrophils % (Manual) Band Neutrophils % Lymphocytes % (Manual) Atypical Lymphs % (Man) Monocytes % (Manual) Eosinophils % (Manual) Basophils % (Manual) Metamyelocytes % Abs Neuts (Manual) Lymphocytes # (Manual) Atyp Lymphs # (Manual) Monocytes # (Manual) Eosinophils # (Manual) Basophils # (Manual) Metamyelocytes # Smudge Cells Toxic Granulation Toxic Vacuolation Dohle Bodies Platelet Estimate Large Platelets Plt Morphology Comment RBC Morphology Microcytosis Spherocytes Target Cells Schistocytes VBG pH VBG pCO2 VBG pO2 VBG HCO3 VBG O2 Saturation VBG Base Excess Sodium Potassium Chloride Carbon Dioxide Anion Gap BUN Creatinine Estim Creat Clear Calc Estimated GFR POC Glucose 125 H 136 H 128 H Random Glucose Calcium Phosphorus Magnesium Total Bilirubin AST ALT Alkaline Phosphatase Total Protein Albumin 12/13/24 12/13/24 12/13/24 04:45 05:08 05:46 WBC 7.9 RBC 3.42 L Hgb 8.2 L Hct 25.7 L MCV 75.1 L MCH 24.0 L MCHC 31.9 RDW 19.9 H Plt Count 237 D MPV 11.1 Immature Gran % (Auto) Cancelled Neut % (Auto) Cancelled Lymph % (Auto) Cancelled [place] % (Auto) Cancelled Eos % (Auto) Cancelled Baso % (Auto) Cancelled Lymph # (Auto) Cancelled [place] # (Auto) Cancelled Eos # (Auto) Cancelled Baso # (Auto) Cancelled Abs Immat Gran (auto) Cancelled Absolute Neuts (auto) Cancelled Absolute Nucleated RBC 0.060 H Nucleated RBC % (auto) 0.8 H Neutrophils % (Manual) 51 Band Neutrophils % 10 H Lymphocytes % (Manual) 13 L Atypical Lymphs % (Man) 5 Monocytes % (Manual) 10 Eosinophils % (Manual) 9 H Basophils % (Manual) 1 Metamyelocytes % 1 Abs Neuts (Manual) 4.8 Lymphocytes # (Manual) 1.0 L Atyp Lymphs # (Manual) 0.4 Monocytes # (Manual) 0.8 Eosinophils # (Manual) 0.7 H Basophils # (Manual) 0.1 Metamyelocytes # 0.1 Smudge Cells PRESENT Toxic Granulation PRESENT Toxic Vacuolation PRESENT Dohle Bodies PRESENT Platelet Estimate NORMAL Large Platelets PRESENT Plt Morphology Comment NOTED RBC Morphology NOTED Microcytosis 1+ (5-14) Spherocytes 2+ (3-5) Target Cells 1+ (5-14) Schistocytes 1+ (0-2) VBG pH 7.44 H VBG pCO2 36 VBG pO2 46 VBG HCO3 25 VBG O2 Saturation 68.0 VBG Base Excess 1.4 Sodium 143 Potassium 3.3 Chloride 109 H Carbon Dioxide 22 Anion Gap 15 BUN 28 H Creatinine 1.34 Estim Creat Clear Calc 63.2 Estimated GFR 55 POC Glucose 134 H Random Glucose 139 H Calcium 8.3 L Phosphorus 3.6 Magnesium 2.3 Total Bilirubin 0.7 AST 35 ALT < 6 Alkaline Phosphatase 57 Total Protein 5.3 L Albumin 2.9 L 12/13/24 12/13/24 12/13/24 06:06 07:17 08:10 WBC RBC Hgb Hct MCV MCH MCHC RDW Plt Count MPV Immature Gran % (Auto) Neut % (Auto) Lymph % (Auto) [place] % (Auto) Eos % (Auto) Baso % (Auto) Lymph # (Auto) [place] # (Auto) Eos # (Auto) Baso # (Auto) Abs Immat Gran (auto) Absolute Neuts (auto) Absolute Nucleated RBC Nucleated RBC % (auto) Neutrophils % (Manual) Band Neutrophils % Lymphocytes % (Manual) Atypical Lymphs % (Man) Monocytes % (Manual) Eosinophils % (Manual) Basophils % (Manual) Metamyelocytes % Abs Neuts (Manual) Lymphocytes # (Manual) Atyp Lymphs # (Manual) Monocytes # (Manual) Eosinophils # (Manual) Basophils # (Manual) Metamyelocytes # Smudge Cells Toxic Granulation Toxic Vacuolation Dohle Bodies Platelet Estimate Large Platelets Plt Morphology Comment RBC Morphology Microcytosis Spherocytes Target Cells Schistocytes VBG pH VBG pCO2 VBG pO2 VBG HCO3 VBG O2 Saturation VBG Base Excess Sodium Potassium Chloride Carbon Dioxide Anion Gap BUN Creatinine Estim Creat Clear Calc Estimated GFR POC Glucose 152 H 155 H 164 H Random Glucose Calcium Phosphorus Magnesium Total Bilirubin AST ALT Alkaline Phosphatase Total Protein Albumin 12/13/24 12/13/24 09:07 10:01 WBC RBC Hgb Hct MCV MCH MCHC RDW Plt Count MPV Immature Gran % (Auto) Neut % (Auto) Lymph % (Auto) [place] % (Auto) Eos % (Auto) Baso % (Auto) Lymph # (Auto) [place] # (Auto) Eos # (Auto) Baso # (Auto) Abs Immat Gran (auto) Absolute Neuts (auto) Absolute Nucleated RBC Nucleated RBC % (auto) Neutrophils % (Manual) Band Neutrophils % Lymphocytes % (Manual) Atypical Lymphs % (Man) Monocytes % (Manual) Eosinophils % (Manual) Basophils % (Manual) Metamyelocytes % Abs Neuts (Manual) Lymphocytes # (Manual) Atyp Lymphs # (Manual) Monocytes # (Manual) Eosinophils # (Manual) Basophils # (Manual) Metamyelocytes # Smudge Cells Toxic Granulation Toxic Vacuolation Dohle Bodies Platelet Estimate Large Platelets Plt Morphology Comment RBC Morphology Microcytosis Spherocytes Target Cells Schistocytes VBG pH VBG pCO2 VBG pO2 VBG HCO3 VBG O2 Saturation VBG Base Excess Sodium Potassium Chloride Carbon Dioxide Anion Gap BUN Creatinine Estim Creat Clear Calc Estimated GFR POC Glucose 159 H 162 H Random Glucose Calcium Phosphorus Magnesium Total Bilirubin AST ALT Alkaline Phosphatase Total Protein Albumin Microbiology Microbiology Results: Microbiology 12/09/24 08:54 Gastric Fluid Gram Stain - Final 12/09/24 08:54 Gastric Fluid Anaerobic Culture - Preliminary Culture in progress. 12/09/24 08:54 Gastric Fluid Body Fluid Culture - Final Klebsiella pneumoniae Flavia species Viridans streptococcus group 12/05/24 20:15 Peritoneal Fluid Gram Stain - Final 12/05/24 20:15 Peritoneal Fluid Routine Culture - Final Klebsiella pneumoniae Escherichia coli Bacillus species Pseudomonas species 12/05/24 20:15 Peritoneal Fluid Anaerobic Culture - Final 12/05/24 16:52 Blood - Venous Blood Culture - Final Escherichia coli Bacteroides fragilis group 12/05/24 16:52 Blood - Venous Blood Culture - Final Escherichia coli Bacteroides fragilis group Progress Note: A&P Assessment and plan (1) Acute hypoxemic respiratory failure: Status: Acute (2) E coli bacteremia: Status: Acute (3) Colon cancer: Status: Acute (4) Peritonitis: Status: Acute (5) Perforated viscus: Status: Acute (6) S/P colostomy: Status: Acute (7) Atrial fibrillation with tachycardic ventricular rate: Status: Acute Plan Assessment: 54-year-old gentleman status post sigmoidectomy and transverse colostomy for perforated sigmoid cancer on 12/05/2024 remains intubated postop Plan: Neuro: No acute issues. Cardiac: AFib with RVR controlled on amiodarone drip. Pulmonary: Acute hypoxic respiratory failure, remains intubated postop, continue to titrate off ventilatory support as tolerated. Renal: No acute issues. Endo: High insulin drip requirements improving, continue insulin drip. GI: Postoperative day 8 after sigmoidectomy with transverse colostomy for perforated sigmoid cancer. General surgery service care appreciated. Repeat CT abdomen with 2 abdominal collections. ID: Empiric coverage for polymicrobial peritonitis with polymicrobial Gram- negative bacteremia. Heme/Onc: Eosinophilia improving. Psych: No acute issues. Miscellaneous: No acute issues. Prophylaxis: Heparin, famotidine Diet: TPN, trophic tube feeds Critical care time spent: 60 minutes Quality Stroke Does the patient have a stroke diagnosis?: No VTE Prior VTE?: No VTE Risk Level:: Medical - moderate - high VTE Device Contraindication: N/A - Device Ordered VTE Drug Contraindication: N/A - Med Ordered
[2024-12-13 11:24] LABS: Glucose, Whole Blood 158 mg/dL (60-115)
[2024-12-13 12:18] LABS: Glucose, Whole Blood 158 mg/dL (60-115)
[2024-12-13 12:56] LABS: Glucose, Whole Blood 146 mg/dL (60-115)
[2024-12-13 14:06] LABS: Glucose, Whole Blood 152 mg/dL (60-115)
[2024-12-13 15:01] LABS: Glucose, Whole Blood 160 mg/dL (60-115)
--- NOTE | 2024-12-13 15:20 | ECG_ITS ---
Test Reason : rhythm abnormality Blood Pressure : */* mmHG Vent. Rate : 82 BPM Atrial Rate : 82 BPM P-R Int : 168 ms QRS Dur : 90 ms QT Int : 442 ms P-R-T Axes : 12 33 5 degrees QTcB Int : 516 ms Normal sinus rhythm Nonspecific T wave abnormality Prolonged QT Abnormal ECG When compared with ECG of 05-Dec-2024 15:05, Vent. rate has decreased by 41 bpm Nonspecific T wave abnormality now evident in Inferior leads Referred By: Saúl Young Electronically Signed By: CONCHITA LIND MD
[2024-12-13] MEDS: Insulin Regular/NS 100 UNIT/100 ML PLAST..BAG 12 UNIT IVCONT (16:06)
[2024-12-13 16:07] LABS: Glucose, Whole Blood 168 mg/dL (60-115)
[2024-12-13 17:10] LABS: Glucose, Whole Blood 155 mg/dL (60-115)
[2024-12-13 18:13] LABS: Glucose, Whole Blood 160 mg/dL (60-115)
[2024-12-13 19:04] LABS: Glucose, Whole Blood 164 mg/dL (60-115)
--- NOTE | 2024-12-13 19:25 | PC.NURSE ---
assumed care 0700 on 12/12/24 Patient intubated and sedated, Propfol (per MAR) Rass -3 most of shift, occasionally breaks through sedation and will open eyes briefly with care (rass -2). extremities flaccid. restraints remain discontinued. +cough, minimal gag, no tracking. pupils reactive. Multiple cardiac changes throughout shift between Sinus Rhythm and A-fib, (occasional PACs and PVCs), anywhere from 90s to 130s. Few levophed titrations required today and Amiodarone unchanged (see MAR) 7.5 ETT, 21 at the lip, poor dentition, bleeding gums with oral care, Vent settings unchanged, No SAT or PSV trials today, patient not eligable for extubation today. tachypneic and orthopneic, expiratory cuff leak, MD aware. (see vent assessment) Abdomen with faint/hypocative bowels, firm on palpation, distended and round, LEÓN drain to LLQ draining moderate amount of brown/ceballos purulent fluid, ostomy draining clear red/orange tinged liquid, still no solid stool output. Sanchez Cath patent, draining clear yellow urine. Multiple rashes posterior L arm rash, posterior torso diffuse rash, R Flank dark red blanchable area, LEÓN Drain LLQ, LEÓN drain Removal Site RLQ, Midline surgical incision. Hospital course uncomplicated today.
[2024-12-13 20:04] LABS: Glucose, Whole Blood 148 mg/dL (60-115)
[2024-12-13 21:04] LABS: Glucose, Whole Blood 146 mg/dL (60-115)
[2024-12-13] MEDS: Parenteral Nutrition 1,920 ML 80 ML IV (21:14)
[2024-12-13 22:07] LABS: Glucose, Whole Blood 139 mg/dL (60-115)
[2024-12-13 23:12] LABS: Glucose, Whole Blood 132 mg/dL (60-115)
[2024-12-14] VITALS (40 sets, daily range): BP systolic 97–144; BP diastolic 49–85; PULSE 60–120; RESP 18–24; TEMP 34.9–39.1; O2SAT 90–96; BMI 30.8
[2024-12-14] MEDS: Insulin Regular/NS 100 UNIT/100 ML PLAST..BAG 13 UNIT IVCONT ×2 (00:07→08:40)
[2024-12-14 00:15] LABS: Glucose, Whole Blood 133 mg/dL (60-115)
[2024-12-14 02:01] LABS: Glucose, Whole Blood 137 mg/dL (60-115)
[2024-12-14] MEDS: Chlorhexidine Gluc Oral Rinse 15 ML MOUTHWASH BUCCAL ×3 (02:16→17:17)
[2024-12-14 04:09] LABS: Glucose, Whole Blood 127 mg/dL (60-115)
[2024-12-14 05:24] LABS: VBG HCO3 23 mmol/L (22-26); VBG O2 % Saturation 76.0 %
[2024-12-14 05:27] LABS: Venous Blood Gas Refer to POC result
[2024-12-14 05:43] LABS: Hematocrit 25.9 % (42.0-52.0); Hemoglobin 8.2 g/dl (14.0-18.0); Mean Corpuscular HGB Conc 31.7 g/dl (31.0-36.0); Mean Corpuscular Hemoglobin 24.1 pg (27.0-33.0); Mean Corpuscular Volume 76.2 fL (80.0-98.0); NRBC Abs Auto 0.080 X10*3/uL (0.0-0.012); NRBC Pct Auto 0.6 /100WBC (0.0-0.2); Platelet Count 322 X10*3/uL (160-400); Red Blood Count 3.40 X10*6/uL (4.60-5.80); White Blood Count 13.8 X10*3/uL (4.8-10.8)
[2024-12-14 06:01] LABS: Albumin Level 2.8 g/dL (3.5-5.0); Anion Gap 14 (12-20); Blood Urea Nitrogen 32 mg/dL (9-16); Calcium 8.4 mg/dL (8.4-10.2); Carbon Dioxide 23 mmol/L (22-29); Chloride 109 mmol/L (96-108); Creatinine Clr Calc Pharmacy 63.4; Estimated Glomerular Filt Rate 55; Magnesium 2.6 mg/dL (1.6-2.6); Potassium 3.6 mmol/L (3.3-5.1); Sodium 142 mmol/L (135-145)
[2024-12-14 06:18] LABS: Glucose, Whole Blood 123 mg/dL (60-115)
[2024-12-14 07:14] LABS: Atypical Lymph Absolute Manual 1.5 x10*3/uL; Atypical Lymphs Percent Manual 11 % (0-6); Band Neutrophils Percent 12 % (3-5); Basophils Abs Manual 0.1 X10*3/uL (0.0-0.2); Basophils Percent Manual 1 % (0-2); Eosinophils Absolute Manual 1.1 X10*3/uL (0.0-0.4); Eosinophils Percent Manual 8 % (0-4); Lymphocytes Absolute Manual 1.2 X10*3/uL (1.2-4.9); Lymphocytes Percent Manual 9 % (20-40); Metamyelocytes Absolute 0.6 X10*3/uL; Metamyelocytes Percent 4 %; Monocytes Absolute Manual 0.3 X10*3/uL (0.1-1.2); Monocytes Percent Manual 2 % (2-11); Myelocytes Absolute 0.1 X10*/uL; Myelocytes Percent 1 %; Neutrophils Absolute Manual 8.7 X10*3/uL (2.0-8.3); Neutrophils Percent Manual 51 % (45-73); Promyelocytes Absolute 0.1 X10*3/uL; Promyelocytes Percent 1 %
[2024-12-14 07:19] LABS: Dohle Bodies PRESENT; Hypochromasia 1+ (5-14) /OIF; Large Platelet PRESENT; Microcytosis 1+ (5-14) /OIF; Polychromasia 1+ (0-2) /OIF; RBC Morphology NOTED; Target Cells 1+ (5-14) /OIF; Toxic Granulation PRESENT; Toxic Vacuolation PRESENT
--- NOTE | 2024-12-14 08:01 | PM.PNGS ---
Subjective Subjective Date of Service: 12/14/24 <Amy Alaniz PA-C - Last Filed: 12/14/24 08:06> 12/14/24 <Bam Collazo MD - Last Filed: 12/14/24 09:42> Interval history: Remains intubated on vent. Febrile. WBC up. 400cc residual this AM. LEÓN drain only 30cc 24h. <Amy Alaniz PA-C - Last Filed: 12/14/24 08:06> Physical Exam Vital Signs: Vital Signs: Last Vital Signs Temp 101.8 F H 12/14/24 07:00 Pulse 81 12/14/24 07:00 Resp 23 H 12/14/24 07:00 BP 125/62 12/14/24 07:00 Pulse Ox 94 12/14/24 07:00 O2 Del Method Mechanical Ventil ation 12/14/24 07:00 FiO2 30 12/14/24 07:00 BMI result Body Mass Index 30.8 <Amy Alaniz PA-C - Last Filed: 12/14/24 08:06> GI: Other: ostomy pink, no output LEÓN with dark serous appearing fluid, sediment in tubing reactive skin changes b/l flanks remains mildly distended <Amy Alaniz PA-C - Last Filed: 12/14/24 08:06> Palpation (GI): Soft to palpation <Amy Alaniz PA-C - Last Filed: 12/14/24 08:06> Percussion: Yes normal to percussion <Amy Alaniz PA-C - Last Filed: 12/14/24 08:06> Objective Data Active Medications Chlorhexidine Gluconate (Chlorhexidine Gluc Oral Rinse 15 Ml Mouthwash) 15 ml BUCCAL Q8H [place] Last Admin: 12/14/24 02:16 Dose: 15 ml Documented By: GAYATHRI Dextrose (Dextrose 50 % 25 Gm/50 Ml Syringe) 25 gm IVPUSH Q15M PRN; Protocol PRN Reason: per Hypoglycemia Standing Ord. Dextrose (Dextrose 50 % 25 Gm/50 Ml Syringe) 25 gm IVPUSH Q15M PRN PRN Reason: per Hypoglycemia Standing Ord. Digoxin (Digoxin 0.5 Mg/2 Ml Ampul) 0.25 mg IVPUSH DAILY [facility]; Protocol Last Admin: 12/13/24 08:36 Dose: 0.25 mg Documented By: LINCOLN Famotidine (Famotidine/Pf 20 Mg/2 Ml Vial) 20 mg IVPUSH DAILY [place] Last Admin: 12/13/24 11:25 Dose: 20 mg Documented By: LINCOLN Furosemide (Furosemide 40 Mg/4 Ml Vial) 40 mg IVPUSH DAILY [place]; Protocol Last Admin: 12/13/24 08:36 Dose: 40 mg Documented By: LINCOLN Glucose (Glucose Gel 15 Gm Gel..Gram.) 15 gm PO Q15M PRN; Protocol PRN Reason: per Hypoglycemia Standing Ord. Heparin Sodium (Porcine) (Heparin Sodium,Porcine 5,000 Unit/Ml Vial) 5,000 unit SUBCUT Q8H [place] Last Admin: 12/14/24 02:02 Dose: 5,000 unit Documented By: GAYATHRI Hydrocortisone (Hydrocortisone 1 % Cream 28.35 Gm Tube) 1 appl TOPICAL BID [place]; Protocol Last Admin: 12/13/24 21:14 Dose: 1 appl Documented By: GAYATHRI Piperacillin Sod/Tazobactam (Sod 3.375 gm/ Sodium Chloride) 50 mls @ 100 mls/hr IV Q6H [place] Last Infusion: 12/14/24 05:11 Dose: Infused Documented By: GAYATHRI Propofol (Diprivan) 1,000 mg in 100 mls @ 0 mls/hr IVCONT .Q0M [place]; Protocol Last Admin: 12/14/24 05:59 Dose: 40 mcg/kg/min, 20.69 mls/hr Documented By: GAYATHRI Norepinephrine Bitartrate (Levophed) 8 mg in 250 mls @ 0 mls/hr IVCONT .Q0M [place]; Protocol Last Admin: 12/13/24 23:01 Dose: 0.08 mcg/kg/min, 12.93 mls/hr Documented By: GAYATHRI Fluconazole (Diflucan) 200 mg in 100 mls @ 100 mls/hr IV Q24H [place] Last Infusion: 12/13/24 23:09 Dose: Infused Documented By: GAYATHRI Amiodarone HCl 900 mg/ Sodium (Chloride) 518 mls @ 34.533 mls/hr IVCONT .Q15H1M [place] Last Admin: 12/14/24 00:05 Dose: 1 mg/min, 34.53 mls/hr Documented By: GAYATHRI Insulin Human Regular (Myxredlin) 100 unit in 100 mls @ 0 mls/hr IVCONT .Q0M [facility]; Protocol Last Admin: 12/14/24 00:07 Dose: 13 unit/hr, 13 mls/hr Documented By: GAYATHRI Co-signed By: REYNA Nutrition (Parenteral) (Parenteral Nutrition) 1,920 mls @ 80 mls/hr IV .Q24H [facility]; Protocol Stop: 12/14/24 20:59 Last Admin: 12/13/24 21:14 Dose: 80 mls/hr Documented By: GAYATHRI Insulin Glargine (Insulin Glargine,Hum.Rec.Anlog 100 Unit/Ml 10 Ml Vial) 20 unit SUBCUT DAILY [facility] Last Admin: 12/13/24 08:37 Dose: 20 unit Documented By: LINCOLN Magnesium Hydroxide (Milk Of Magnesia 30 Ml Oral.Susp) 30 ml PO DAILY PRN PRN Reason: Constipation Melatonin (Melatonin 3 Mg Tablet) 6 mg PO BEDTIME PRN PRN Reason: Insomnia Naloxone HCl (Naloxone Hcl 0.4 Mg/Ml Vial) 0.2 mg IVPUSH Q2M PRN PRN Reason: Excessive sedation or RR < 8 Pharmacy Consult (Consult Rx Parenteral Nutrition Ordering) 1 each MISCELLANE DAILY PRN PRN Reason: Consult order Sodium Chloride (0.9 % Sodium Chloride Flush 3 Ml Syringe) 3 ml IVFLUSH QSHIFT [facility] Last Admin: 12/13/24 23:09 Dose: 3 ml Documented By: GAYATHRI <Amy Alaniz PA-C - Last Filed: 12/14/24 08:06> Labs CBC & Chem 7: 12/14/24 05:16 12/14/24 05:16 <Amy Alaniz PA-C - Last Filed: 12/14/24 08:06> Labs: Laboratory Results - last 24 hr 12/13/24 12/13/24 12/13/24 04:45 08:10 09:07 MCV MCH MCHC RDW Plt Count MPV Immature Gran % (Auto) Neut % (Auto) Lymph % (Auto) [place] % (Auto) Eos % (Auto) Baso % (Auto) Lymph # (Auto) [place] # (Auto) Eos # (Auto) Baso # (Auto) Abs Immat Gran (auto) Absolute Neuts (auto) Absolute Nucleated RBC Nucleated RBC % (auto) Neutrophils % (Manual) Band Neutrophils % Lymphocytes % (Manual) Atypical Lymphs % (Man) Monocytes % (Manual) Eosinophils % (Manual) Basophils % (Manual) Metamyelocytes % Myelocytes % Promyelocytes % Abs Neuts (Manual) 4.8 Lymphocytes # (Manual) 1.0 L Atyp Lymphs # (Manual) 0.4 Monocytes # (Manual) 0.8 Eosinophils # (Manual) 0.7 H Basophils # (Manual) 0.1 Metamyelocytes # 0.1 Myelocytes # Promyelocytes # Toxic Granulation Toxic Vacuolation Dohle Bodies Platelet Estimate Large Platelets Plt Morphology Comment RBC Morphology Polychromasia Hypochromasia Microcytosis Target Cells VBG pH VBG pCO2 VBG pO2 VBG HCO3 VBG O2 Saturation VBG Base Excess Anion Gap Estim Creat Clear Calc Estimated GFR POC Glucose 164 H 159 H Random Glucose Calcium Phosphorus Magnesium Albumin 12/13/24 12/13/24 12/13/24 10:01 11:15 12:13 MCV MCH MCHC RDW Plt Count MPV Immature Gran % (Auto) Neut % (Auto) Lymph % (Auto) [place] % (Auto) Eos % (Auto) Baso % (Auto) Lymph # (Auto) [place] # (Auto) Eos # (Auto) Baso # (Auto) Abs Immat Gran (auto) Absolute Neuts (auto) Absolute Nucleated RBC Nucleated RBC % (auto) Neutrophils % (Manual) Band Neutrophils % Lymphocytes % (Manual) Atypical Lymphs % (Man) Monocytes % (Manual) Eosinophils % (Manual) Basophils % (Manual) Metamyelocytes % Myelocytes % Promyelocytes % Abs Neuts (Manual) Lymphocytes # (Manual) Atyp Lymphs # (Manual) Monocytes # (Manual) Eosinophils # (Manual) Basophils # (Manual) Metamyelocytes # Myelocytes # Promyelocytes # Toxic Granulation Toxic Vacuolation Dohle Bodies Platelet Estimate Large Platelets Plt Morphology Comment RBC Morphology Polychromasia Hypochromasia Microcytosis Target Cells VBG pH VBG pCO2 VBG pO2 VBG HCO3 VBG O2 Saturation VBG Base Excess Anion Gap Estim Creat Clear Calc Estimated GFR POC Glucose 162 H 158 H 158 H Random Glucose Calcium Phosphorus Magnesium Albumin 12/13/24 12/13/24 12/13/24 12:52 14:03 14:58 MCV MCH MCHC RDW Plt Count MPV Immature Gran % (Auto) Neut % (Auto) Lymph % (Auto) [place] % (Auto) Eos % (Auto) Baso % (Auto) Lymph # (Auto) [place] # (Auto) Eos # (Auto) Baso # (Auto) Abs Immat Gran (auto) Absolute Neuts (auto) Absolute Nucleated RBC Nucleated RBC % (auto) Neutrophils % (Manual) Band Neutrophils % Lymphocytes % (Manual) Atypical Lymphs % (Man) Monocytes % (Manual) Eosinophils % (Manual) Basophils % (Manual) Metamyelocytes % Myelocytes % Promyelocytes % Abs Neuts (Manual) Lymphocytes # (Manual) Atyp Lymphs # (Manual) Monocytes # (Manual) Eosinophils # (Manual) Basophils # (Manual) Metamyelocytes # Myelocytes # Promyelocytes # Toxic Granulation Toxic Vacuolation Dohle Bodies Platelet Estimate Large Platelets Plt Morphology Comment RBC Morphology Polychromasia Hypochromasia Microcytosis Target Cells VBG pH VBG pCO2 VBG pO2 VBG HCO3 VBG O2 Saturation VBG Base Excess Anion Gap Estim Creat Clear Calc Estimated GFR POC Glucose 146 H 152 H 160 H Random Glucose Calcium Phosphorus Magnesium Albumin 12/13/24 12/13/24 12/13/24 16:03 17:07 18:10 MCV MCH MCHC RDW Plt Count MPV Immature Gran % (Auto) Neut % (Auto) Lymph % (Auto) [place] % (Auto) Eos % (Auto) Baso % (Auto) Lymph # (Auto) [place] # (Auto) Eos # (Auto) Baso # (Auto) Abs Immat Gran (auto) Absolute Neuts (auto) Absolute Nucleated RBC Nucleated RBC % (auto) Neutrophils % (Manual) Band Neutrophils % Lymphocytes % (Manual) Atypical Lymphs % (Man) Monocytes % (Manual) Eosinophils % (Manual) Basophils % (Manual) Metamyelocytes % Myelocytes % Promyelocytes % Abs Neuts (Manual) Lymphocytes # (Manual) Atyp Lymphs # (Manual) Monocytes # (Manual) Eosinophils # (Manual) Basophils # (Manual) Metamyelocytes # Myelocytes # Promyelocytes # Toxic Granulation Toxic Vacuolation Dohle Bodies Platelet Estimate Large Platelets Plt Morphology Comment RBC Morphology Polychromasia Hypochromasia Microcytosis Target Cells VBG pH VBG pCO2 VBG pO2 VBG HCO3 VBG O2 Saturation VBG Base Excess Anion Gap Estim Creat Clear Calc Estimated GFR POC Glucose 168 H 155 H 160 H Random Glucose Calcium Phosphorus Magnesium Albumin 12/13/24 12/13/24 12/13/24 19:00 20:01 21:01 MCV MCH MCHC RDW Plt Count MPV Immature Gran % (Auto) Neut % (Auto) Lymph % (Auto) [place] % (Auto) Eos % (Auto) Baso % (Auto) Lymph # (Auto) [place] # (Auto) Eos # (Auto) Baso # (Auto) Abs Immat Gran (auto) Absolute Neuts (auto) Absolute Nucleated RBC Nucleated RBC % (auto) Neutrophils % (Manual) Band Neutrophils % Lymphocytes % (Manual) Atypical Lymphs % (Man) Monocytes % (Manual) Eosinophils % (Manual) Basophils % (Manual) Metamyelocytes % Myelocytes % Promyelocytes % Abs Neuts (Manual) Lymphocytes # (Manual) Atyp Lymphs # (Manual) Monocytes # (Manual) Eosinophils # (Manual) Basophils # (Manual) Metamyelocytes # Myelocytes # Promyelocytes # Toxic Granulation Toxic Vacuolation Dohle Bodies Platelet Estimate Large Platelets Plt Morphology Comment RBC Morphology Polychromasia Hypochromasia Microcytosis Target Cells VBG pH VBG pCO2 VBG pO2 VBG HCO3 VBG O2 Saturation VBG Base Excess Anion Gap Estim Creat Clear Calc Estimated GFR POC Glucose 164 H 148 H 146 H Random Glucose Calcium Phosphorus Magnesium Albumin 12/13/24 12/13/24 12/14/24 22:03 23:08 00:06 MCV MCH MCHC RDW Plt Count MPV Immature Gran % (Auto) Neut % (Auto) Lymph % (Auto) [place] % (Auto) Eos % (Auto) Baso % (Auto) Lymph # (Auto) [place] # (Auto) Eos # (Auto) Baso # (Auto) Abs Immat Gran (auto) Absolute Neuts (auto) Absolute Nucleated RBC Nucleated RBC % (auto) Neutrophils % (Manual) Band Neutrophils % Lymphocytes % (Manual) Atypical Lymphs % (Man) Monocytes % (Manual) Eosinophils % (Manual) Basophils % (Manual) Metamyelocytes % Myelocytes % Promyelocytes % Abs Neuts (Manual) Lymphocytes # (Manual) Atyp Lymphs # (Manual) Monocytes # (Manual) Eosinophils # (Manual) Basophils # (Manual) Metamyelocytes # Myelocytes # Promyelocytes # Toxic Granulation Toxic Vacuolation Dohle Bodies Platelet Estimate Large Platelets Plt Morphology Comment RBC Morphology Polychromasia Hypochromasia Microcytosis Target Cells VBG pH VBG pCO2 VBG pO2 VBG HCO3 VBG O2 Saturation VBG Base Excess Anion Gap Estim Creat Clear Calc Estimated GFR POC Glucose 139 H 132 H 133 H Random Glucose Calcium Phosphorus Magnesium Albumin 12/14/24 12/14/24 12/14/24 01:53 04:05 05:16 MCV 76.2 L MCH 24.1 L MCHC 31.7 RDW 20.1 H Plt Count 322 D MPV 11.5 Immature Gran % (Auto) Cancelled Neut % (Auto) Cancelled Lymph % (Auto) Cancelled [place] % (Auto) Cancelled Eos % (Auto) Cancelled Baso % (Auto) Cancelled Lymph # (Auto) Cancelled [place] # (Auto) Cancelled Eos # (Auto) Cancelled Baso # (Auto) Cancelled Abs Immat Gran (auto) Cancelled Absolute Neuts (auto) Cancelled Absolute Nucleated RBC 0.080 H Nucleated RBC % (auto) 0.6 H Neutrophils % (Manual) 51 Band Neutrophils % 12 H Lymphocytes % (Manual) 9 L Atypical Lymphs % (Man) 11 H Monocytes % (Manual) 2 Eosinophils % (Manual) 8 H Basophils % (Manual) 1 Metamyelocytes % 4 Myelocytes % 1 Promyelocytes % 1 Abs Neuts (Manual) 8.7 H Lymphocytes # (Manual) 1.2 Atyp Lymphs # (Manual) 1.5 Monocytes # (Manual) 0.3 Eosinophils # (Manual) 1.1 H Basophils # (Manual) 0.1 Metamyelocytes # 0.6 Myelocytes # 0.1 Promyelocytes # 0.1 Toxic Granulation PRESENT Toxic Vacuolation PRESENT Dohle Bodies PRESENT Platelet Estimate NORMAL Large Platelets PRESENT Plt Morphology Comment NOTED RBC Morphology NOTED Polychromasia 1+ (0-2) Hypochromasia 1+ (5-14) Microcytosis 1+ (5-14) Target Cells 1+ (5-14) VBG pH VBG pCO2 VBG pO2 VBG HCO3 VBG O2 Saturation VBG Base Excess Anion Gap 14 Estim Creat Clear Calc 63.4 Estimated GFR 55 POC Glucose 137 H 127 H Random Glucose 118 H Calcium 8.4 Phosphorus 3.9 Magnesium 2.6 Albumin 2.8 L 12/14/24 12/14/24 05:21 06:14 MCV MCH MCHC RDW Plt Count MPV Immature Gran % (Auto) Neut % (Auto) Lymph % (Auto) [place] % (Auto) Eos % (Auto) Baso % (Auto) Lymph # (Auto) [place] # (Auto) Eos # (Auto) Baso # (Auto) Abs Immat Gran (auto) Absolute Neuts (auto) Absolute Nucleated RBC Nucleated RBC % (auto) Neutrophils % (Manual) Band Neutrophils % Lymphocytes % (Manual) Atypical Lymphs % (Man) Monocytes % (Manual) Eosinophils % (Manual) Basophils % (Manual) Metamyelocytes % Myelocytes % Promyelocytes % Abs Neuts (Manual) Lymphocytes # (Manual) Atyp Lymphs # (Manual) Monocytes # (Manual) Eosinophils # (Manual) Basophils # (Manual) Metamyelocytes # Myelocytes # Promyelocytes # Toxic Granulation Toxic Vacuolation Dohle Bodies Platelet Estimate Large Platelets Plt Morphology Comment RBC Morphology Polychromasia Hypochromasia Microcytosis Target Cells VBG pH 7.47 H VBG pCO2 31 VBG pO2 49 VBG HCO3 23 VBG O2 Saturation 76.0 VBG Base Excess 0.6 Anion Gap Estim Creat Clear Calc Estimated GFR POC Glucose 123 H Random Glucose Calcium Phosphorus Magnesium Albumin <Amy Alaniz PA-C - Last Filed: 12/14/24 08:06> Microbiology Microbiology Results: Microbiology 12/09/24 08:54 Gram Stain - Final Gastric Fluid Anaerobic Culture - Preliminary Culture in progress. Body Fluid Culture - Final Klebsiella pneumoniae Flavia species Viridans streptococcus group <Amy Alaniz PA-C - Last Filed: 12/14/24 08:06> Procedures Date of Service Date of Service: 12/14/24 <Amy Alaniz PA-C - Last Filed: 12/14/24 08:06> 12/14/24 <Bam Collazo MD - Last Filed: 12/14/24 09:42> Progress Note: A&P Assessment and plan (1) S/P colostomy: Status: Acute <Amy Alaniz PA-C - Last Filed: 12/14/24 08:06> Assessment and Plan: Having fever spikes On low-dose pressors No significant stoma output yet Abdomen is soft, stoma viable Some dependent edema and redness of the skin on the torso and arms CAT scan from Saturday - fluid collections as noted Discussed with IR - collections should be contiguous with the current LEÓN drain in the left lower quadrant Radiologist recommended on holding off on additional IR drain for now LEÓN drain appeared to have been clogged over the weekend, now freely draining IV antibiotics Okay to try to restart low-dose tube feeds Seen and examined independently Discussed with ICU staff <Bam Collazo MD - Last Filed: 12/14/24 09:42> (2) Perforated viscus: Status: Acute <Amy Alaniz PA-C - Last Filed: 12/14/24 08:06> Assessment and Plan: Status post laparotomy, resection of large perforated tumor, 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 Found to have profound fecal contamination and fecal peritonitis throughout the entire peritoneal cavity. Remains intubated in ICU on pressors, IVF. UOP adequate. Remains febrile, WBC up this AM. CT scan Saturday diffuse intraabdominal fluid - LEÓN with diminished output yesterday, drain stripped with drainage increasing Incision overall clean appearing, thin tannish drainage from inferior aspect. Erythema and skin thickening b/l flanks ?Reactive changes. Await stoma function, prolonged return of GI function anticipated due to fecal peritonitis. Hold tube feeds for now. Cont IV antimicrobials. Will discuss with IR possible drainage. Further restorative measures per ICU team. <Amy Alaniz PA-C - Last Filed: 12/14/24 08:06> Time Spent With Patient Time: Total time managing care of this patient today ____ minutes. <Amy Alaniz PA-C - Last Filed: 12/14/24 08:06> Quality Stroke Does the patient have a stroke diagnosis?: No <JYOTI Madrigal Last Filed: 12/14/24 08:06> VTE Prior VTE?: No <JYOTI Madrigal Last Filed: 12/14/24 08:06> VTE Risk Level:: Medical - moderate - high <JYOTI Madrigal Last Filed: 12/14/24 08:06> VTE Device Contraindication: N/A - Device Ordered <Amy Alaniz PA-C - Last Filed: 12/14/24 08:06> VTE Drug Contraindication: N/A - Med Ordered <JYOTI Madrigal Last Filed: 12/14/24 08:06>
--- NOTE | 2024-12-14 08:05 | PM.PNGS ---
Subjective Subjective Date of Service: 12/14/24 Interval history: He is intubated On low-dose pressors Having fever spike No stool output from the stoma Physical Exam Vital Signs: Vital Signs: Last Vital Signs Temp 101.8 F H 12/14/24 07:00 Pulse 81 12/14/24 07:00 Resp 23 H 12/14/24 07:00 BP 125/62 12/14/24 07:00 Pulse Ox 94 12/14/24 07:00 O2 Del Method Mechanical Ventil ation 12/14/24 07:00 FiO2 30 12/14/24 07:00 BMI result Body Mass Index 30.8 Const: Other: Remains on the ventilator Resp: Other: On the ventilator Cardio: Rate: regular rate GI: Other: Dependent edema and redness of the skin of the torso Stoma appears pink and viable, no stool Palpation (GI): Soft to palpation : Other: Good urine output Objective Data Active Medications Chlorhexidine Gluconate (Chlorhexidine Gluc Oral Rinse 15 Ml Mouthwash) 15 ml BUCCAL Q8H [facility] Last Admin: 12/14/24 02:16 Dose: 15 ml Documented By: GAYATHRI Dextrose (Dextrose 50 % 25 Gm/50 Ml Syringe) 25 gm IVPUSH Q15M PRN; Protocol PRN Reason: per Hypoglycemia Standing Ord. Dextrose (Dextrose 50 % 25 Gm/50 Ml Syringe) 25 gm IVPUSH Q15M PRN PRN Reason: per Hypoglycemia Standing Ord. Digoxin (Digoxin 0.5 Mg/2 Ml Ampul) 0.25 mg IVPUSH DAILY [facility]; Protocol Last Admin: 12/13/24 08:36 Dose: 0.25 mg Documented By: LINCOLN Famotidine (Famotidine/Pf 20 Mg/2 Ml Vial) 20 mg IVPUSH DAILY [facility] Last Admin: 12/13/24 11:25 Dose: 20 mg Documented By: LINCOLN Furosemide (Furosemide 40 Mg/4 Ml Vial) 40 mg IVPUSH DAILY [facility]; Protocol Last Admin: 12/13/24 08:36 Dose: 40 mg Documented By: LINCOLN Glucose (Glucose Gel 15 Gm Gel..Gram.) 15 gm PO Q15M PRN; Protocol PRN Reason: per Hypoglycemia Standing Ord. Heparin Sodium (Porcine) (Heparin Sodium,Porcine 5,000 Unit/Ml Vial) 5,000 unit SUBCUT Q8H [facility] Last Admin: 12/14/24 02:02 Dose: 5,000 unit Documented By: GAYATHRI Hydrocortisone (Hydrocortisone 1 % Cream 28.35 Gm Tube) 1 appl TOPICAL BID [facility]; Protocol Last Admin: 12/13/24 21:14 Dose: 1 appl Documented By: GAYATHRI Piperacillin Sod/Tazobactam (Sod 3.375 gm/ Sodium Chloride) 50 mls @ 100 mls/hr IV Q6H [facility] Last Infusion: 12/14/24 05:11 Dose: Infused Documented By: GAYATHRI Propofol (Diprivan) 1,000 mg in 100 mls @ 0 mls/hr IVCONT .Q0M [facility]; Protocol Last Admin: 12/14/24 05:59 Dose: 40 mcg/kg/min, 20.69 mls/hr Documented By: GAYATHRI Norepinephrine Bitartrate (Levophed) 8 mg in 250 mls @ 0 mls/hr IVCONT .Q0M [facility]; Protocol Last Admin: 12/13/24 23:01 Dose: 0.08 mcg/kg/min, 12.93 mls/hr Documented By: GAYATHRI Fluconazole (Diflucan) 200 mg in 100 mls @ 100 mls/hr IV Q24H [facility] Last Infusion: 12/13/24 23:09 Dose: Infused Documented By: GAYATHRI Amiodarone HCl 900 mg/ Sodium (Chloride) 518 mls @ 34.533 mls/hr IVCONT .Q15H1M [facility] Last Admin: 12/14/24 00:05 Dose: 1 mg/min, 34.53 mls/hr Documented By: GAYATHRI Insulin Human Regular (Myxredlin) 100 unit in 100 mls @ 0 mls/hr IVCONT .Q0M [facility]; Protocol Last Admin: 12/14/24 00:07 Dose: 13 unit/hr, 13 mls/hr Documented By: GAYATHRI Co-signed By: REYNA Nutrition (Parenteral) (Parenteral Nutrition) 1,920 mls @ 80 mls/hr IV .Q24H [facility]; Protocol Stop: 12/14/24 20:59 Last Admin: 12/13/24 21:14 Dose: 80 mls/hr Documented By: GAYATHRI Insulin Glargine (Insulin Glargine,Hum.Rec.Anlog 100 Unit/Ml 10 Ml Vial) 20 unit SUBCUT DAILY [facility] Last Admin: 12/13/24 08:37 Dose: 20 unit Documented By: LINCOLN Magnesium Hydroxide (Milk Of Magnesia 30 Ml Oral.Susp) 30 ml PO DAILY PRN PRN Reason: Constipation Melatonin (Melatonin 3 Mg Tablet) 6 mg PO BEDTIME PRN PRN Reason: Insomnia Naloxone HCl (Naloxone Hcl 0.4 Mg/Ml Vial) 0.2 mg IVPUSH Q2M PRN PRN Reason: Excessive sedation or RR < 8 Pharmacy Consult (Consult Rx Parenteral Nutrition Ordering) 1 each MISCELLANE DAILY PRN PRN Reason: Consult order Sodium Chloride (0.9 % Sodium Chloride Flush 3 Ml Syringe) 3 ml IVFLUSH QSHIFT [facility] Last Admin: 12/13/24 23:09 Dose: 3 ml Documented By: GAYATHRI Labs 12/14/24 05:16 12/14/24 05:16 Labs: Laboratory Results - last 24 hr 12/13/24 12/13/24 12/13/24 04:45 08:10 09:07 MCV MCH MCHC RDW Plt Count MPV Immature Gran % (Auto) Neut % (Auto) Lymph % (Auto) [place] % (Auto) Eos % (Auto) Baso % (Auto) Lymph # (Auto) [place] # (Auto) Eos # (Auto) Baso # (Auto) Abs Immat Gran (auto) Absolute Neuts (auto) Absolute Nucleated RBC Nucleated RBC % (auto) Neutrophils % (Manual) Band Neutrophils % Lymphocytes % (Manual) Atypical Lymphs % (Man) Monocytes % (Manual) Eosinophils % (Manual) Basophils % (Manual) Metamyelocytes % Myelocytes % Promyelocytes % Abs Neuts (Manual) 4.8 Lymphocytes # (Manual) 1.0 L Atyp Lymphs # (Manual) 0.4 Monocytes # (Manual) 0.8 Eosinophils # (Manual) 0.7 H Basophils # (Manual) 0.1 Metamyelocytes # 0.1 Myelocytes # Promyelocytes # Toxic Granulation Toxic Vacuolation Dohle Bodies Platelet Estimate Large Platelets Plt Morphology Comment RBC Morphology Polychromasia Hypochromasia Microcytosis Target Cells VBG pH VBG pCO2 VBG pO2 VBG HCO3 VBG O2 Saturation VBG Base Excess Anion Gap Estim Creat Clear Calc Estimated GFR POC Glucose 164 H 159 H Random Glucose Calcium Phosphorus Magnesium Albumin 12/13/24 12/13/24 12/13/24 10:01 11:15 12:13 MCV MCH MCHC RDW Plt Count MPV Immature Gran % (Auto) Neut % (Auto) Lymph % (Auto) [place] % (Auto) Eos % (Auto) Baso % (Auto) Lymph # (Auto) [place] # (Auto) Eos # (Auto) Baso # (Auto) Abs Immat Gran (auto) Absolute Neuts (auto) Absolute Nucleated RBC Nucleated RBC % (auto) Neutrophils % (Manual) Band Neutrophils % Lymphocytes % (Manual) Atypical Lymphs % (Man) Monocytes % (Manual) Eosinophils % (Manual) Basophils % (Manual) Metamyelocytes % Myelocytes % Promyelocytes % Abs Neuts (Manual) Lymphocytes # (Manual) Atyp Lymphs # (Manual) Monocytes # (Manual) Eosinophils # (Manual) Basophils # (Manual) Metamyelocytes # Myelocytes # Promyelocytes # Toxic Granulation Toxic Vacuolation Dohle Bodies Platelet Estimate Large Platelets Plt Morphology Comment RBC Morphology Polychromasia Hypochromasia Microcytosis Target Cells VBG pH VBG pCO2 VBG pO2 VBG HCO3 VBG O2 Saturation VBG Base Excess Anion Gap Estim Creat Clear Calc Estimated GFR POC Glucose 162 H 158 H 158 H Random Glucose Calcium Phosphorus Magnesium Albumin 12/13/24 12/13/24 12/13/24 12:52 14:03 14:58 MCV MCH MCHC RDW Plt Count MPV Immature Gran % (Auto) Neut % (Auto) Lymph % (Auto) [place] % (Auto) Eos % (Auto) Baso % (Auto) Lymph # (Auto) [place] # (Auto) Eos # (Auto) Baso # (Auto) Abs Immat Gran (auto) Absolute Neuts (auto) Absolute Nucleated RBC Nucleated RBC % (auto) Neutrophils % (Manual) Band Neutrophils % Lymphocytes % (Manual) Atypical Lymphs % (Man) Monocytes % (Manual) Eosinophils % (Manual) Basophils % (Manual) Metamyelocytes % Myelocytes % Promyelocytes % Abs Neuts (Manual) Lymphocytes # (Manual) Atyp Lymphs # (Manual) Monocytes # (Manual) Eosinophils # (Manual) Basophils # (Manual) Metamyelocytes # Myelocytes # Promyelocytes # Toxic Granulation Toxic Vacuolation Dohle Bodies Platelet Estimate Large Platelets Plt Morphology Comment RBC Morphology Polychromasia Hypochromasia Microcytosis Target Cells VBG pH VBG pCO2 VBG pO2 VBG HCO3 VBG O2 Saturation VBG Base Excess Anion Gap Estim Creat Clear Calc Estimated GFR POC Glucose 146 H 152 H 160 H Random Glucose Calcium Phosphorus Magnesium Albumin 12/13/24 12/13/24 12/13/24 16:03 17:07 18:10 MCV MCH MCHC RDW Plt Count MPV Immature Gran % (Auto) Neut % (Auto) Lymph % (Auto) [place] % (Auto) Eos % (Auto) Baso % (Auto) Lymph # (Auto) [place] # (Auto) Eos # (Auto) Baso # (Auto) Abs Immat Gran (auto) Absolute Neuts (auto) Absolute Nucleated RBC Nucleated RBC % (auto) Neutrophils % (Manual) Band Neutrophils % Lymphocytes % (Manual) Atypical Lymphs % (Man) Monocytes % (Manual) Eosinophils % (Manual) Basophils % (Manual) Metamyelocytes % Myelocytes % Promyelocytes % Abs Neuts (Manual) Lymphocytes # (Manual) Atyp Lymphs # (Manual) Monocytes # (Manual) Eosinophils # (Manual) Basophils # (Manual) Metamyelocytes # Myelocytes # Promyelocytes # Toxic Granulation Toxic Vacuolation Dohle Bodies Platelet Estimate Large Platelets Plt Morphology Comment RBC Morphology Polychromasia Hypochromasia Microcytosis Target Cells VBG pH VBG pCO2 VBG pO2 VBG HCO3 VBG O2 Saturation VBG Base Excess Anion Gap Estim Creat Clear Calc Estimated GFR POC Glucose 168 H 155 H 160 H Random Glucose Calcium Phosphorus Magnesium Albumin 12/13/24 12/13/24 12/13/24 19:00 20:01 21:01 MCV MCH MCHC RDW Plt Count MPV Immature Gran % (Auto) Neut % (Auto) Lymph % (Auto) [place] % (Auto) Eos % (Auto) Baso % (Auto) Lymph # (Auto) [place] # (Auto) Eos # (Auto) Baso # (Auto) Abs Immat Gran (auto) Absolute Neuts (auto) Absolute Nucleated RBC Nucleated RBC % (auto) Neutrophils % (Manual) Band Neutrophils % Lymphocytes % (Manual) Atypical Lymphs % (Man) Monocytes % (Manual) Eosinophils % (Manual) Basophils % (Manual) Metamyelocytes % Myelocytes % Promyelocytes % Abs Neuts (Manual) Lymphocytes # (Manual) Atyp Lymphs # (Manual) Monocytes # (Manual) Eosinophils # (Manual) Basophils # (Manual) Metamyelocytes # Myelocytes # Promyelocytes # Toxic Granulation Toxic Vacuolation Dohle Bodies Platelet Estimate Large Platelets Plt Morphology Comment RBC Morphology Polychromasia Hypochromasia Microcytosis Target Cells VBG pH VBG pCO2 VBG pO2 VBG HCO3 VBG O2 Saturation VBG Base Excess Anion Gap Estim Creat Clear Calc Estimated GFR POC Glucose 164 H 148 H 146 H Random Glucose Calcium Phosphorus Magnesium Albumin 12/13/24 12/13/24 12/14/24 22:03 23:08 00:06 MCV MCH MCHC RDW Plt Count MPV Immature Gran % (Auto) Neut % (Auto) Lymph % (Auto) [place] % (Auto) Eos % (Auto) Baso % (Auto) Lymph # (Auto) [place] # (Auto) Eos # (Auto) Baso # (Auto) Abs Immat Gran (auto) Absolute Neuts (auto) Absolute Nucleated RBC Nucleated RBC % (auto) Neutrophils % (Manual) Band Neutrophils % Lymphocytes % (Manual) Atypical Lymphs % (Man) Monocytes % (Manual) Eosinophils % (Manual) Basophils % (Manual) Metamyelocytes % Myelocytes % Promyelocytes % Abs Neuts (Manual) Lymphocytes # (Manual) Atyp Lymphs # (Manual) Monocytes # (Manual) Eosinophils # (Manual) Basophils # (Manual) Metamyelocytes # Myelocytes # Promyelocytes # Toxic Granulation Toxic Vacuolation Dohle Bodies Platelet Estimate Large Platelets Plt Morphology Comment RBC Morphology Polychromasia Hypochromasia Microcytosis Target Cells VBG pH VBG pCO2 VBG pO2 VBG HCO3 VBG O2 Saturation VBG Base Excess Anion Gap Estim Creat Clear Calc Estimated GFR POC Glucose 139 H 132 H 133 H Random Glucose Calcium Phosphorus Magnesium Albumin 12/14/24 12/14/24 12/14/24 01:53 04:05 05:16 MCV 76.2 L MCH 24.1 L MCHC 31.7 RDW 20.1 H Plt Count 322 D MPV 11.5 Immature Gran % (Auto) Cancelled Neut % (Auto) Cancelled Lymph % (Auto) Cancelled [place] % (Auto) Cancelled Eos % (Auto) Cancelled Baso % (Auto) Cancelled Lymph # (Auto) Cancelled [place] # (Auto) Cancelled Eos # (Auto) Cancelled Baso # (Auto) Cancelled Abs Immat Gran (auto) Cancelled Absolute Neuts (auto) Cancelled Absolute Nucleated RBC 0.080 H Nucleated RBC % (auto) 0.6 H Neutrophils % (Manual) 51 Band Neutrophils % 12 H Lymphocytes % (Manual) 9 L Atypical Lymphs % (Man) 11 H Monocytes % (Manual) 2 Eosinophils % (Manual) 8 H Basophils % (Manual) 1 Metamyelocytes % 4 Myelocytes % 1 Promyelocytes % 1 Abs Neuts (Manual) 8.7 H Lymphocytes # (Manual) 1.2 Atyp Lymphs # (Manual) 1.5 Monocytes # (Manual) 0.3 Eosinophils # (Manual) 1.1 H Basophils # (Manual) 0.1 Metamyelocytes # 0.6 Myelocytes # 0.1 Promyelocytes # 0.1 Toxic Granulation PRESENT Toxic Vacuolation PRESENT Dohle Bodies PRESENT Platelet Estimate NORMAL Large Platelets PRESENT Plt Morphology Comment NOTED RBC Morphology NOTED Polychromasia 1+ (0-2) Hypochromasia 1+ (5-14) Microcytosis 1+ (5-14) Target Cells 1+ (5-14) VBG pH VBG pCO2 VBG pO2 VBG HCO3 VBG O2 Saturation VBG Base Excess Anion Gap 14 Estim Creat Clear Calc 63.4 Estimated GFR 55 POC Glucose 137 H 127 H Random Glucose 118 H Calcium 8.4 Phosphorus 3.9 Magnesium 2.6 Albumin 2.8 L 12/14/24 12/14/24 05:21 06:14 MCV MCH MCHC RDW Plt Count MPV Immature Gran % (Auto) Neut % (Auto) Lymph % (Auto) [place] % (Auto) Eos % (Auto) Baso % (Auto) Lymph # (Auto) [place] # (Auto) Eos # (Auto) Baso # (Auto) Abs Immat Gran (auto) Absolute Neuts (auto) Absolute Nucleated RBC Nucleated RBC % (auto) Neutrophils % (Manual) Band Neutrophils % Lymphocytes % (Manual) Atypical Lymphs % (Man) Monocytes % (Manual) Eosinophils % (Manual) Basophils % (Manual) Metamyelocytes % Myelocytes % Promyelocytes % Abs Neuts (Manual) Lymphocytes # (Manual) Atyp Lymphs # (Manual) Monocytes # (Manual) Eosinophils # (Manual) Basophils # (Manual) Metamyelocytes # Myelocytes # Promyelocytes # Toxic Granulation Toxic Vacuolation Dohle Bodies Platelet Estimate Large Platelets Plt Morphology Comment RBC Morphology Polychromasia Hypochromasia Microcytosis Target Cells VBG pH 7.47 H VBG pCO2 31 VBG pO2 49 VBG HCO3 23 VBG O2 Saturation 76.0 VBG Base Excess 0.6 Anion Gap Estim Creat Clear Calc Estimated GFR POC Glucose 123 H Random Glucose Calcium Phosphorus Magnesium Albumin Microbiology Microbiology Results: Microbiology 12/09/24 08:54 Gram Stain - Final Gastric Fluid Anaerobic Culture - Preliminary Culture in progress. Body Fluid Culture - Final Klebsiella pneumoniae Flavia species Viridans streptococcus group Procedures Date of Service Date of Service: 12/14/24 Progress Note: A&P Time Spent With Patient Time: Total time managing care of this patient today ____ minutes. Quality Stroke Does the patient have a stroke diagnosis?: No VTE Prior VTE?: No VTE Risk Level:: Medical - moderate - high VTE Device Contraindication: N/A - Device Ordered VTE Drug Contraindication: N/A - Med Ordered
[2024-12-14 08:15] LABS: Glucose, Whole Blood 138 mg/dL (60-115)
[2024-12-14] MEDS: Hydrocortisone 1 % Cream 28.35 GM TUBE 1 APPL TOPICAL ×2 (08:40→20:08)
--- NOTE | 2024-12-14 08:59 | MHC.CLN ---
F/U PT REMAINS INTUBATED AND SEDATED REVIEWED LABS DISCUSSED WITH PHARMACY CONTINUE TPN AT 80ML/HR PROVIDES 1363KCALS (1909KCALS WITH SEDATION; 29KCALS/KG BASED ON IBW), 288G DEXTROSE, 96G PROTEIN (1.3G/KG) HOLD LIPIDS HOLD TRICKLE TUBE FEEDINGS PER SURGICAL TEAM REPLETE LYTES NEEDED
[2024-12-14] MEDS: 0.9 % Sodium Chloride Flush 3 ML SYRINGE IVFLUSH ×2 (09:00→16:03)
[2024-12-14] MEDS: Insulin Glargine,Hum.rec.anlog 100 UNIT/ML 10 ML VIAL 20 UNIT SUBCUT (09:03)
[2024-12-14] MEDS: Furosemide 40 MG/4 ML VIAL IVPUSH (09:08)
[2024-12-14 10:39] LABS: Glucose, Whole Blood 129 mg/dL (60-115)
[2024-12-14] MEDS: metroNIDAZOLE/NS 500 MG/100 ML PIGGYBACK 100 MG IV ×2 (11:21→17:17)
[2024-12-14 11:49] LABS: Glucose, Whole Blood 129 mg/dL (60-115)
[2024-12-14 11:52] LABS: CDiff Gene PCR POSITIVE (Negative)
[2024-12-14 12:36] LABS: CDIFF Internal ctrl Dots and bkg OK (V); CDiff Toxin Negative (Negative)
--- NOTE | 2024-12-14 13:06 | PM.CCPN ---
Subjective Subjective Date of Service: 12/14/24 Interval History: Perforated bowel with diverting colostomy resection of the sigmoid tumor now 9 days on piperacillinOf his LEÓN drain is well placed on CAT scan and no other distinct collection for Interventional Radiology Still remains ventilator dependent on high minute ventilatory requirements of 12 L still has persistent ileus with notable collection in the -FIO2 have 30% rectosigmoid stump A rash is noted on all of his dependent areas and does not appear to be a drug reaction but noting a slow worsening of renal function and chest x-ray which otherwise looks unchanged I did note that the endotracheal tube was pulled back a little bit and there is a small cuff leak and I think its position so that is going to be advanced In addition I reviewed CT of the abdomen with Radiology and he has diffuse fluid throughout the peritoneum without a distinct collection and the LEÓN drain is working and is in good position so no further intervention at this point but the collection of stool in the stump of the rectosigmoid had a rectal tube placed drained sent for culture and was positive for C diff so I added Flagyl to his regimen with the piperacillin and without the Flavia species having been defined I am considering changing to a caspofungin He remains sedated still with a 12 L minute ventilatory requirement but stable blood pressure Critical Care Time (minutes): 45 Physical Exam Vital Signs: Vital Signs: Last Vital Signs Temp 101.5 F H 12/14/24 12:00 Pulse 82 12/14/24 12:00 Resp 20 12/14/24 12:00 BP 97/61 12/14/24 12:00 Pulse Ox 93 12/14/24 12:00 O2 Del Method Mechanical Ventil ation 12/14/24 12:00 FiO2 30 12/14/24 12:00 BMI result Body Mass Index 30.8 No acute distress we are slowly weaning Levophed for pressure is 130/70 currently in AFib at a controlled rate LV function by echo seems to be normal without segmental wall motion abnormality no pericardial fluid Abdomen not distended even though the colostomy is only producing a little fluid not truly functioning On dependent skin looks like he has a little contact dermatitis I do not think a drug eruption Warm well-perfused with palpable distal pulses lab work pretty good except for just ever so slight increase in BUN and creatinine has a diminishing but still persistent eosinophilia By chest x-ray basically unchanged lung parenchyma ET tube is pulled back another cm so that was fixed and that ended the minor cuff leak Objective Data Labs 12/14/24 05:16 12/14/24 05:16 Labs: Laboratory Results - last 24 hr 12/13/24 12/13/24 12/13/24 14:03 14:58 16:03 WBC RBC Hgb Hct MCV MCH MCHC RDW Plt Count MPV Immature Gran % (Auto) Neut % (Auto) Lymph % (Auto) [place] % (Auto) Eos % (Auto) Baso % (Auto) Lymph # (Auto) [place] # (Auto) Eos # (Auto) Baso # (Auto) Abs Immat Gran (auto) Absolute Neuts (auto) Absolute Nucleated RBC Nucleated RBC % (auto) Neutrophils % (Manual) Band Neutrophils % Lymphocytes % (Manual) Atypical Lymphs % (Man) Monocytes % (Manual) Eosinophils % (Manual) Basophils % (Manual) Metamyelocytes % Myelocytes % Promyelocytes % Abs Neuts (Manual) Lymphocytes # (Manual) Atyp Lymphs # (Manual) Monocytes # (Manual) Eosinophils # (Manual) Basophils # (Manual) Metamyelocytes # Myelocytes # Promyelocytes # Toxic Granulation Toxic Vacuolation Dohle Bodies Platelet Estimate Large Platelets Plt Morphology Comment RBC Morphology Polychromasia Hypochromasia Microcytosis Target Cells VBG pH VBG pCO2 VBG pO2 VBG HCO3 VBG O2 Saturation VBG Base Excess Sodium Potassium Chloride Carbon Dioxide Anion Gap BUN Creatinine Estim Creat Clear Calc Estimated GFR POC Glucose 152 H 160 H 168 H Random Glucose Calcium Phosphorus Magnesium Albumin C. difficile Tox B Gene C. difficile Toxin A&B C. difficile Interpret 12/13/24 12/13/24 12/13/24 17:07 18:10 19:00 WBC RBC Hgb Hct MCV MCH MCHC RDW Plt Count MPV Immature Gran % (Auto) Neut % (Auto) Lymph % (Auto) [place] % (Auto) Eos % (Auto) Baso % (Auto) Lymph # (Auto) [place] # (Auto) Eos # (Auto) Baso # (Auto) Abs Immat Gran (auto) Absolute Neuts (auto) Absolute Nucleated RBC Nucleated RBC % (auto) Neutrophils % (Manual) Band Neutrophils % Lymphocytes % (Manual) Atypical Lymphs % (Man) Monocytes % (Manual) Eosinophils % (Manual) Basophils % (Manual) Metamyelocytes % Myelocytes % Promyelocytes % Abs Neuts (Manual) Lymphocytes # (Manual) Atyp Lymphs # (Manual) Monocytes # (Manual) Eosinophils # (Manual) Basophils # (Manual) Metamyelocytes # Myelocytes # Promyelocytes # Toxic Granulation Toxic Vacuolation Dohle Bodies Platelet Estimate Large Platelets Plt Morphology Comment RBC Morphology Polychromasia Hypochromasia Microcytosis Target Cells VBG pH VBG pCO2 VBG pO2 VBG HCO3 VBG O2 Saturation VBG Base Excess Sodium Potassium Chloride Carbon Dioxide Anion Gap BUN Creatinine Estim Creat Clear Calc Estimated GFR POC Glucose 155 H 160 H 164 H Random Glucose Calcium Phosphorus Magnesium Albumin C. difficile Tox B Gene C. difficile Toxin A&B C. difficile Interpret 12/13/24 12/13/24 12/13/24 20:01 21:01 22:03 WBC RBC Hgb Hct MCV MCH MCHC RDW Plt Count MPV Immature Gran % (Auto) Neut % (Auto) Lymph % (Auto) [place] % (Auto) Eos % (Auto) Baso % (Auto) Lymph # (Auto) [place] # (Auto) Eos # (Auto) Baso # (Auto) Abs Immat Gran (auto) Absolute Neuts (auto) Absolute Nucleated RBC Nucleated RBC % (auto) Neutrophils % (Manual) Band Neutrophils % Lymphocytes % (Manual) Atypical Lymphs % (Man) Monocytes % (Manual) Eosinophils % (Manual) Basophils % (Manual) Metamyelocytes % Myelocytes % Promyelocytes % Abs Neuts (Manual) Lymphocytes # (Manual) Atyp Lymphs # (Manual) Monocytes # (Manual) Eosinophils # (Manual) Basophils # (Manual) Metamyelocytes # Myelocytes # Promyelocytes # Toxic Granulation Toxic Vacuolation Dohle Bodies Platelet Estimate Large Platelets Plt Morphology Comment RBC Morphology Polychromasia Hypochromasia Microcytosis Target Cells VBG pH VBG pCO2 VBG pO2 VBG HCO3 VBG O2 Saturation VBG Base Excess Sodium Potassium Chloride Carbon Dioxide Anion Gap BUN Creatinine Estim Creat Clear Calc Estimated GFR POC Glucose 148 H 146 H 139 H Random Glucose Calcium Phosphorus Magnesium Albumin C. difficile Tox B Gene C. difficile Toxin A&B C. difficile Interpret 12/13/24 12/14/24 12/14/24 23:08 00:06 01:53 WBC RBC Hgb Hct MCV MCH MCHC RDW Plt Count MPV Immature Gran % (Auto) Neut % (Auto) Lymph % (Auto) [place] % (Auto) Eos % (Auto) Baso % (Auto) Lymph # (Auto) [place] # (Auto) Eos # (Auto) Baso # (Auto) Abs Immat Gran (auto) Absolute Neuts (auto) Absolute Nucleated RBC Nucleated RBC % (auto) Neutrophils % (Manual) Band Neutrophils % Lymphocytes % (Manual) Atypical Lymphs % (Man) Monocytes % (Manual) Eosinophils % (Manual) Basophils % (Manual) Metamyelocytes % Myelocytes % Promyelocytes % Abs Neuts (Manual) Lymphocytes # (Manual) Atyp Lymphs # (Manual) Monocytes # (Manual) Eosinophils # (Manual) Basophils # (Manual) Metamyelocytes # Myelocytes # Promyelocytes # Toxic Granulation Toxic Vacuolation Dohle Bodies Platelet Estimate Large Platelets Plt Morphology Comment RBC Morphology Polychromasia Hypochromasia Microcytosis Target Cells VBG pH VBG pCO2 VBG pO2 VBG HCO3 VBG O2 Saturation VBG Base Excess Sodium Potassium Chloride Carbon Dioxide Anion Gap BUN Creatinine Estim Creat Clear Calc Estimated GFR POC Glucose 132 H 133 H 137 H Random Glucose Calcium Phosphorus Magnesium Albumin C. difficile Tox B Gene C. difficile Toxin A&B C. difficile Interpret 12/14/24 12/14/24 12/14/24 04:05 05:16 05:21 WBC 13.8 H RBC 3.40 L Hgb 8.2 L Hct 25.9 L MCV 76.2 L MCH 24.1 L MCHC 31.7 RDW 20.1 H Plt Count 322 D MPV 11.5 Immature Gran % (Auto) Cancelled Neut % (Auto) Cancelled Lymph % (Auto) Cancelled [place] % (Auto) Cancelled Eos % (Auto) Cancelled Baso % (Auto) Cancelled Lymph # (Auto) Cancelled [place] # (Auto) Cancelled Eos # (Auto) Cancelled Baso # (Auto) Cancelled Abs Immat Gran (auto) Cancelled Absolute Neuts (auto) Cancelled Absolute Nucleated RBC 0.080 H Nucleated RBC % (auto) 0.6 H Neutrophils % (Manual) 51 Band Neutrophils % 12 H Lymphocytes % (Manual) 9 L Atypical Lymphs % (Man) 11 H Monocytes % (Manual) 2 Eosinophils % (Manual) 8 H Basophils % (Manual) 1 Metamyelocytes % 4 Myelocytes % 1 Promyelocytes % 1 Abs Neuts (Manual) 8.7 H Lymphocytes # (Manual) 1.2 Atyp Lymphs # (Manual) 1.5 Monocytes # (Manual) 0.3 Eosinophils # (Manual) 1.1 H Basophils # (Manual) 0.1 Metamyelocytes # 0.6 Myelocytes # 0.1 Promyelocytes # 0.1 Toxic Granulation PRESENT Toxic Vacuolation PRESENT Dohle Bodies PRESENT Platelet Estimate NORMAL Large Platelets PRESENT Plt Morphology Comment NOTED RBC Morphology NOTED Polychromasia 1+ (0-2) Hypochromasia 1+ (5-14) Microcytosis 1+ (5-14) Target Cells 1+ (5-14) VBG pH 7.47 H VBG pCO2 31 VBG pO2 49 VBG HCO3 23 VBG O2 Saturation 76.0 VBG Base Excess 0.6 Sodium 142 Potassium 3.6 Chloride 109 H Carbon Dioxide 23 Anion Gap 14 BUN 32 H Creatinine 1.34 Estim Creat Clear Calc 63.4 Estimated GFR 55 POC Glucose 127 H Random Glucose 118 H Calcium 8.4 Phosphorus 3.9 Magnesium 2.6 Albumin 2.8 L C. difficile Tox B Gene C. difficile Toxin A&B C. difficile Interpret 12/14/24 12/14/24 12/14/24 06:14 08:12 10:35 WBC RBC Hgb Hct MCV MCH MCHC RDW Plt Count MPV Immature Gran % (Auto) Neut % (Auto) Lymph % (Auto) [place] % (Auto) Eos % (Auto) Baso % (Auto) Lymph # (Auto) [place] # (Auto) Eos # (Auto) Baso # (Auto) Abs Immat Gran (auto) Absolute Neuts (auto) Absolute Nucleated RBC Nucleated RBC % (auto) Neutrophils % (Manual) Band Neutrophils % Lymphocytes % (Manual) Atypical Lymphs % (Man) Monocytes % (Manual) Eosinophils % (Manual) Basophils % (Manual) Metamyelocytes % Myelocytes % Promyelocytes % Abs Neuts (Manual) Lymphocytes # (Manual) Atyp Lymphs # (Manual) Monocytes # (Manual) Eosinophils # (Manual) Basophils # (Manual) Metamyelocytes # Myelocytes # Promyelocytes # Toxic Granulation Toxic Vacuolation Dohle Bodies Platelet Estimate Large Platelets Plt Morphology Comment RBC Morphology Polychromasia Hypochromasia Microcytosis Target Cells VBG pH VBG pCO2 VBG pO2 VBG HCO3 VBG O2 Saturation VBG Base Excess Sodium Potassium Chloride Carbon Dioxide Anion Gap BUN Creatinine Estim Creat Clear Calc Estimated GFR POC Glucose 123 H 138 H 129 H Random Glucose Calcium Phosphorus Magnesium Albumin C. difficile Tox B Gene C. difficile Toxin A&B C. difficile Interpret 12/14/24 12/14/24 10:49 11:44 WBC RBC Hgb Hct MCV MCH MCHC RDW Plt Count MPV Immature Gran % (Auto) Neut % (Auto) Lymph % (Auto) [place] % (Auto) Eos % (Auto) Baso % (Auto) Lymph # (Auto) [place] # (Auto) Eos # (Auto) Baso # (Auto) Abs Immat Gran (auto) Absolute Neuts (auto) Absolute Nucleated RBC Nucleated RBC % (auto) Neutrophils % (Manual) Band Neutrophils % Lymphocytes % (Manual) Atypical Lymphs % (Man) Monocytes % (Manual) Eosinophils % (Manual) Basophils % (Manual) Metamyelocytes % Myelocytes % Promyelocytes % Abs Neuts (Manual) Lymphocytes # (Manual) Atyp Lymphs # (Manual) Monocytes # (Manual) Eosinophils # (Manual) Basophils # (Manual) Metamyelocytes # Myelocytes # Promyelocytes # Toxic Granulation Toxic Vacuolation Dohle Bodies Platelet Estimate Large Platelets Plt Morphology Comment RBC Morphology Polychromasia Hypochromasia Microcytosis Target Cells VBG pH VBG pCO2 VBG pO2 VBG HCO3 VBG O2 Saturation VBG Base Excess Sodium Potassium Chloride Carbon Dioxide Anion Gap BUN Creatinine Estim Creat Clear Calc Estimated GFR POC Glucose 129 H Random Glucose Calcium Phosphorus Magnesium Albumin C. difficile Tox B Gene POSITIVE A* C. difficile Toxin A&B Negative C. difficile Interpret SEE NOTE Microbiology Microbiology Results: Microbiology 12/09/24 08:54 Gastric Fluid Gram Stain - Final 12/09/24 08:54 Gastric Fluid Anaerobic Culture - Final 12/09/24 08:54 Gastric Fluid Body Fluid Culture - Final Klebsiella pneumoniae Flavia species Viridans streptococcus group 12/05/24 20:15 Peritoneal Fluid Gram Stain - Final 12/05/24 20:15 Peritoneal Fluid Routine Culture - Final Klebsiella pneumoniae Escherichia coli Bacillus species Pseudomonas species 12/05/24 20:15 Peritoneal Fluid Anaerobic Culture - Final 12/05/24 16:52 Blood - Venous Blood Culture - Final Escherichia coli Bacteroides fragilis group 12/05/24 16:52 Blood - Venous Blood Culture - Final Escherichia coli Bacteroides fragilis group Progress Note: A&P Assessment and plan (1) Atrial fibrillation with tachycardic ventricular rate: Status: Acute (2) Acute hypoxemic respiratory failure: Status: Acute (3) E coli bacteremia: Status: Acute (4) Colon cancer: Status: Acute (5) Anemia: Status: Acute (6) Peritonitis: Status: Acute (7) Perforated viscus: Status: Acute (8) Status post laparoscopic-assisted sigmoidectomy: Status: Acute (9) S/P colostomy: Status: Acute (10) Diverticulitis of colon with perforation: Status: Acute (11) Colonic mass: Status: Acute (12) Acute diverticulitis: Status: Acute Plan So the plan here is add Flagyl to his antibiotic regimen and because of eosinophilia I have concerns about the piperacillin persisting and may change that to meropenem and change the fluconazole to an echinocandin category drug Quality Stroke Does the patient have a stroke diagnosis?: No VTE Prior VTE?: No VTE Risk Level:: Medical - moderate - high VTE Device Contraindication: N/A - Device Ordered VTE Drug Contraindication: N/A - Med Ordered
[2024-12-14 14:19] LABS: Glucose, Whole Blood 115 mg/dL (60-115)
[2024-12-14 15:18] LABS: Glucose, Whole Blood 118 mg/dL (60-115)
[2024-12-14 15:52] LABS: E. coli EAEC Not Detected (Not Detect.); E. coli EPEC Not Detected (Not Detect.); E. coli ETEC Not Detected (Not Detect.); E. coli STEC Not Detected (Not Detect.); Shigella sp./EIEC Not Detected (Not Detect.)
[2024-12-14 15:55] LABS: Glucose, Whole Blood 128 mg/dL (60-115)
[2024-12-14] MEDS: Insulin Regular/NS 100 UNIT/100 ML PLAST..BAG 8 UNIT IVCONT (16:04)
[2024-12-14 17:11] LABS: Glucose, Whole Blood 126 mg/dL (60-115)
[2024-12-14 17:53] LABS: Glucose, Whole Blood 134 mg/dL (60-115)
--- NOTE | 2024-12-14 17:53 | HE.NUR.EV ---
Assumed care 0700 on 12/12/24 Patient intubated and sedated, Propfol (per MAR) Rass -3. no eye opening today, not tracking. extremities flaccid. restraints remain discontinued. +cough, minimal gag, pupils reactive no pain response, but grimaces with care. Multiple cardiac changes throughout shift between Sinus Rhythm and A-fib, (frequent PVCs), anywhere from 90s to 130s. Few levophed titrations required today and Amiodarone unchanged (see MAR) 7.5 ETT, 21 at the lip, poor dentition, bleeding gums with oral care, Vent settings unchanged, No SAT or PSV trials today, patient not eligable for extubation today. tachypneic and orthopneic, expiratory cuff leak, MD aware. (see vent assessment) Abdomen with faint/hypocative bowels, firm on palpation, distended and round, LEÓN drain to LLQ draining moderate amount of brown/ceballos purulent fluid, ostomy draining clear red/orange tinged liquid, still no solid stool output. Sanchez Cath patent, draining clear yellow urine. Deep tissue injury to coccyx. Multiple rashes posterior L arm rash, posterior torso diffuse rash, R Flank dark red blanchable area, LEÓN Drain LLQ, LEÓN drain Removal Site RLQ, Midline surgical incision. [facility]: 0700 - Surgical PA to bedside to assess and redress surgical sites, Gastric residual this mornign 350ml, PA stated pause tube feed. 0730 - Chest X-ray obtained to assess ETT placement related to persistent cuff leak... ETT advanced to 24cm at the lip by respiratory, per MD. 10:15 approximately - Rectal tube placed per MD, and 250 of ceballos liquid drained, CDIFF and GI Panel sent. 10:50 - patient contact precautions implemented, (+C.Diff) 11:00 - RT noticed ETT moved back to 21. RN and RT changed ETT holister and advanced ETT to 24cm at the lip. 12:00 approximately - Metronidazole added to antibiotic course 1550 - patient became diaphoretic, bradycardic, tachypenic, and hoptensive. titrations made to LEVO and MD made aware. patient status improved at 1700. no longer diaphoretic and BPs improved. 1740 approximately - MD adjusted amio dose down to 0.5... see MAR for specifics
[2024-12-14 18:58] LABS: Glucose, Whole Blood 144 mg/dL (60-115)
[2024-12-14 20:01] LABS: Glucose, Whole Blood 154 mg/dL (60-115)
[2024-12-14] MEDS: Parenteral Nutrition 1,920 ML 80 ML IV (20:39)
[2024-12-14 20:51] LABS: Albumin Level 2.8 g/dL (3.5-5.0); Anion Gap 14 (12-20); Blood Urea Nitrogen 34 mg/dL (9-16); Calcium 8.3 mg/dL (8.4-10.2); Carbon Dioxide 22 mmol/L (22-29); Chloride 109 mmol/L (96-108); Creatinine Clr Calc Pharmacy 62.0; Estimated Glomerular Filt Rate 54; Magnesium 2.5 mg/dL (1.6-2.6); Potassium 3.2 mmol/L (3.3-5.1); Sodium 142 mmol/L (135-145)
[2024-12-14 20:59] LABS: Glucose, Whole Blood 151 mg/dL (60-115)
[2024-12-14] MEDS: Potassium Chloride/H20 40 MEQ/100 ML PIGGYBACK 100 MEQ IV (21:13)
[2024-12-14] MEDS: Albumin Human 25 % 100 ML IV (21:17)
[2024-12-14 22:06] LABS: Glucose, Whole Blood 147 mg/dL (60-115)
[2024-12-14 23:00] LABS: Glucose, Whole Blood 166 mg/dL (60-115)
[2024-12-14 23:58] LABS: Glucose, Whole Blood 158 mg/dL (60-115)
[2024-12-15] VITALS (46 sets, daily range): BP systolic 109–142; BP diastolic 55–84; PULSE 51–90; RESP 16–32; TEMP 35–39; O2SAT 91–99; BMI 32.0
[2024-12-15] MEDS: 0.9 % Sodium Chloride Flush 3 ML SYRINGE IVFLUSH ×3 (00:57→13:51)
[2024-12-15 00:59] LABS: Glucose, Whole Blood 159 mg/dL (60-115)
[2024-12-15] MEDS: Chlorhexidine Gluc Oral Rinse 15 ML MOUTHWASH BUCCAL ×3 (01:12→17:20)
[2024-12-15] MEDS: metroNIDAZOLE/NS 500 MG/100 ML PIGGYBACK 100 MG IV ×3 (01:12→17:20)
[2024-12-15 02:02] LABS: Glucose, Whole Blood 166 mg/dL (60-115)
[2024-12-15] MEDS: Albumin Human 25 % 100 ML IV ×4 (02:07→22:16)
[2024-12-15 03:03] LABS: Glucose, Whole Blood 171 mg/dL (60-115)
[2024-12-15 04:02] LABS: Glucose, Whole Blood 169 mg/dL (60-115)
[2024-12-15 05:09] LABS: Glucose, Whole Blood 166 mg/dL (60-115)
[2024-12-15 05:32] LABS: Hematocrit 23.9 % (42.0-52.0); Hemoglobin 7.7 g/dl (14.0-18.0); Mean Corpuscular HGB Conc 32.2 g/dl (31.0-36.0); Mean Corpuscular Hemoglobin 24.5 pg (27.0-33.0); Mean Corpuscular Volume 76.1 fL (80.0-98.0); NRBC Abs Auto 0.070 X10*3/uL (0.0-0.012); NRBC Pct Auto 0.4 /100WBC (0.0-0.2); Platelet Count 401 X10*3/uL (160-400); Red Blood Count 3.14 X10*6/uL (4.60-5.80); Venous Blood Gas Refer to POC result; White Blood Count 17.3 X10*3/uL (4.8-10.8)
[2024-12-15 05:37] LABS: VBG HCO3 22 mmol/L (22-26)
[2024-12-15 05:39] LABS: INTERNATIONAL NORM RATIO 1.5 (0.9-1.1); Prothrombin Time 17.1 SEC (10.9-12.4)
[2024-12-15 05:46] LABS: Alanine Aminotransferase < 6 U/L (0-40); Albumin Level 3.0 g/dL (3.5-5.0); Alkaline Phosphatase 59 U/L (39-117); Anion Gap 15 (12-20); Aspartate Amino Transferase 30 U/L (5-37); Blood Urea Nitrogen 32 mg/dL (9-16); Calcium 8.2 mg/dL (8.4-10.2); Carbon Dioxide 20 mmol/L (22-29); Chloride 109 mmol/L (96-108); Creatinine Clr Calc Pharmacy 64.1; Estimated Glomerular Filt Rate 55; Magnesium 2.5 mg/dL (1.6-2.6); Potassium 3.4 mmol/L (3.3-5.1); Sodium 141 mmol/L (135-145); Total Protein 5.7 g/dL (6.5-8.0)
[2024-12-15 06:01] LABS: Glucose, Whole Blood 165 mg/dL (60-115)
[2024-12-15 06:02] LABS: Band Neutrophils Percent 14 % (3-5); Eosinophils Absolute Manual 1.9 X10*3/uL (0.0-0.4); Eosinophils Percent Manual 11 % (0-4); Lymphocytes Absolute Manual 0.7 X10*3/uL (1.2-4.9); Lymphocytes Percent Manual 4 % (20-40); Metamyelocytes Absolute 0.3 X10*3/uL; Metamyelocytes Percent 2 %; Monocytes Absolute Manual 1.2 X10*3/uL (0.1-1.2); Monocytes Percent Manual 7 % (2-11)
[2024-12-15 06:03] LABS: Myelocytes Absolute 0.2 X10*/uL; Myelocytes Percent 1 %; Neutrophils Absolute Manual 12.8 X10*3/uL (2.0-8.3); Neutrophils Percent Manual 60 % (45-73); Promyelocytes Absolute 0.2 X10*3/uL; Promyelocytes Percent 1 %
[2024-12-15 06:04] LABS: Hypochromasia 1+ (5-14) /OIF; Polychromasia 1+ (0-2) /OIF; RBC Morphology NOTED
[2024-12-15 06:05] LABS: Microcytosis 1+ (5-14) /OIF
[2024-12-15 06:06] LABS: Dohle Bodies PRESENT
[2024-12-15 06:07] LABS: Burr Cells 1+ (0-2) /OIF; Large Platelet PRESENT; Ovalocytes 1+ (5-14) /OIF; Target Cells 1+ (5-14) /OIF; Toxic Granulation PRESENT; Toxic Vacuolation PRESENT
--- NOTE | 2024-12-15 06:09 | P.PNCC_ITS ---
Subjective Subjective Date of Service: 12/15/24 Interval History: Uneventful evening on laboratory work I note small decrease of hemoglobin to 7.7 heart rates are averaging between 60 and the high 70s at this point I can reduce digoxin to 0.125 mg because he is being given amiodarone as well and I noticed that he is just very minimally hyperchloremic otherwise no other specific change in renal function and urine output is stable and at this point I can do away with the IV Lasix He is putting some gas and now into his colostomy bag and has an audible bowel sounds and despite temperature rising to 102 does not at all appear toxic or distressed Heart rate in AFib is down into the high 50s at this point but oxygen saturations are excellent his minute ventilatory requirement is down by about a L to a L and a half blood pressure is up to 140 and he is definitely being weaned from his Levophed so signs of sepsis seem to be diminishing Critical Care Time (minutes): 35 Physical Exam 2 Vital Signs: Vital Signs: Last Vital Signs Temp 100.8 F H 12/15/24 06:00 Pulse 62 12/15/24 06:00 Resp 26 H 12/15/24 06:00 BP 117/58 L 12/15/24 06:00 Pulse Ox 93 12/15/24 06:00 O2 Del Method Mechanical Ventil ation 12/15/24 06:00 FiO2 40 12/15/24 06:00 BMI result Body Mass Index 32.0 Skin intact no rash Good bilateral carotid upstrokes no bruits no neck vein distension Cardiac exam no gallops no murmurs Abdomen slightly softer this just 1 open skin stable but the fascia is intact and positive bowel sound Chest without adventitious sound Objective Data Labs 12/15/24 05:24 12/15/24 05:24 Labs: Laboratory Results - last 24 hr 12/14/24 12/14/24 12/14/24 05:16 06:14 08:12 WBC RBC Hgb Hct MCV MCH MCHC RDW Plt Count MPV Absolute Nucleated RBC Nucleated RBC % (auto) Neutrophils % (Manual) 51 Band Neutrophils % 12 H Lymphocytes % (Manual) 9 L Atypical Lymphs % (Man) 11 H Monocytes % (Manual) 2 Eosinophils % (Manual) 8 H Basophils % (Manual) 1 Metamyelocytes % 4 Myelocytes % 1 Promyelocytes % 1 Abs Neuts (Manual) 8.7 H Lymphocytes # (Manual) 1.2 Atyp Lymphs # (Manual) 1.5 Monocytes # (Manual) 0.3 Eosinophils # (Manual) 1.1 H Basophils # (Manual) 0.1 Metamyelocytes # 0.6 Myelocytes # 0.1 Promyelocytes # 0.1 Nucleated RBCs Toxic Granulation PRESENT Toxic Vacuolation PRESENT Dohle Bodies PRESENT Platelet Estimate NORMAL Large Platelets PRESENT Giant Platelets Plt Morphology Comment NOTED RBC Morphology NOTED Polychromasia 1+ (0-2) Hypochromasia 1+ (5-14) Microcytosis 1+ (5-14) Target Cells 1+ (5-14) Ovalocytes [place] Cells PT INR VBG pH VBG pCO2 VBG pO2 VBG HCO3 VBG O2 Saturation VBG Base Excess Sodium Potassium Chloride Carbon Dioxide Anion Gap BUN Creatinine Estim Creat Clear Calc Estimated GFR POC Glucose 123 H 138 H Random Glucose Calcium Phosphorus Magnesium Total Bilirubin AST ALT Alkaline Phosphatase Total Protein Albumin Stl C. cayetanensis PCR Stool Rotavirus A PCR Stl Adenov F 40/41 PCR Stool Astrovirus (PCR) Stool Campylobacter PCR Stool Cryptosporidium PCR Stl Sh Tox Pr E STEC PCR Stool E coli O157 PCR Stl Enterotoxigenic E PCR Stool EPEC (PCR) Stool EAEC (PCR) Stl E. histolytica PCR Stool Giardia Lamblia PCR Stl P. shigelloides PCR Stool Salmonella PCR Stool Sapovirus (PCR) Stl Shigella/EIEC PCR St Y.enterocolitica PCR Stool Vibrio (PCR) Stl Vibrio cholerae PCR Stl Norovirus GI/GII PCR C. difficile Tox B Gene C. difficile Toxin A&B C. difficile Interpret 12/14/24 12/14/24 12/14/24 10:35 10:40 10:49 WBC RBC Hgb Hct MCV MCH MCHC RDW Plt Count MPV Absolute Nucleated RBC Nucleated RBC % (auto) Neutrophils % (Manual) Band Neutrophils % Lymphocytes % (Manual) Atypical Lymphs % (Man) Monocytes % (Manual) Eosinophils % (Manual) Basophils % (Manual) Metamyelocytes % Myelocytes % Promyelocytes % Abs Neuts (Manual) Lymphocytes # (Manual) Atyp Lymphs # (Manual) Monocytes # (Manual) Eosinophils # (Manual) Basophils # (Manual) Metamyelocytes # Myelocytes # Promyelocytes # Nucleated RBCs Toxic Granulation Toxic Vacuolation Dohle Bodies Platelet Estimate Large Platelets Giant Platelets Plt Morphology Comment RBC Morphology Polychromasia Hypochromasia Microcytosis Target Cells Ovalocytes [place] Cells PT INR VBG pH VBG pCO2 VBG pO2 VBG HCO3 VBG O2 Saturation VBG Base Excess Sodium Potassium Chloride Carbon Dioxide Anion Gap BUN Creatinine Estim Creat Clear Calc Estimated GFR POC Glucose 129 H Random Glucose Calcium Phosphorus Magnesium Total Bilirubin AST ALT Alkaline Phosphatase Total Protein Albumin Stl C. cayetanensis PCR Cancelled Stool Rotavirus A PCR Cancelled Stl Adenov F 40/41 PCR Cancelled Stool Astrovirus (PCR) Cancelled Stool Campylobacter PCR Cancelled Stool Cryptosporidium PCR Cancelled Stl Sh Tox Pr E STEC PCR Cancelled Stool E coli O157 PCR Cancelled Stl Enterotoxigenic E PCR Cancelled Stool EPEC (PCR) Cancelled Stool EAEC (PCR) Cancelled Stl E. histolytica PCR Cancelled Stool Giardia Lamblia PCR Cancelled Stl P. shigelloides PCR Cancelled Stool Salmonella PCR Cancelled Stool Sapovirus (PCR) Cancelled Stl Shigella/EIEC PCR Cancelled St Y.enterocolitica PCR Cancelled Stool Vibrio (PCR) Cancelled Stl Vibrio cholerae PCR Cancelled Stl Norovirus GI/GII PCR Cancelled C. difficile Tox B Gene POSITIVE A* C. difficile Toxin A&B Negative C. difficile Interpret SEE NOTE 12/14/24 12/14/24 12/14/24 11:44 12:45 14:15 WBC RBC Hgb Hct MCV MCH MCHC RDW Plt Count MPV Absolute Nucleated RBC Nucleated RBC % (auto) Neutrophils % (Manual) Band Neutrophils % Lymphocytes % (Manual) Atypical Lymphs % (Man) Monocytes % (Manual) Eosinophils % (Manual) Basophils % (Manual) Metamyelocytes % Myelocytes % Promyelocytes % Abs Neuts (Manual) Lymphocytes # (Manual) Atyp Lymphs # (Manual) Monocytes # (Manual) Eosinophils # (Manual) Basophils # (Manual) Metamyelocytes # Myelocytes # Promyelocytes # Nucleated RBCs Toxic Granulation Toxic Vacuolation Dohle Bodies Platelet Estimate Large Platelets Giant Platelets Plt Morphology Comment RBC Morphology Polychromasia Hypochromasia Microcytosis Target Cells Ovalocytes [place] Cells PT INR VBG pH VBG pCO2 VBG pO2 VBG HCO3 VBG O2 Saturation VBG Base Excess Sodium Potassium Chloride Carbon Dioxide Anion Gap BUN Creatinine Estim Creat Clear Calc Estimated GFR POC Glucose 129 H 115 Random Glucose Calcium Phosphorus Magnesium Total Bilirubin AST ALT Alkaline Phosphatase Total Protein Albumin Stl C. cayetanensis PCR Not Detected Stool Rotavirus A PCR Not Detected Stl Adenov F 40/ PCR Not Detected Stool Astrovirus (PCR) Not Detected Stool Campylobacter PCR Not Detected Stool Cryptosporidium PCR Not Detected Stl Sh Tox Pr E STEC PCR Not Detected Stool E coli O157 PCR Not applicable Stl Enterotoxigenic E PCR Not Detected Stool EPEC (PCR) Not Detected Stool EAEC (PCR) Not Detected Stl E. histolytica PCR Not Detected Stool Giardia Lamblia PCR Not Detected Stl P. shigelloides PCR Not Detected Stool Salmonella PCR Not Detected Stool Sapovirus (PCR) Not Detected Stl Shigella/EIEC PCR Not Detected St Y.enterocolitica PCR Not Detected Stool Vibrio (PCR) Not Detected Stl Vibrio cholerae PCR Not Detected Stl Norovirus GI/GII PCR Not Detected C. difficile Tox B Gene C. difficile Toxin A&B C. difficile Interpret 12/14/24 12/14/24 12/14/24 15:14 15:51 17:08 WBC RBC Hgb Hct MCV MCH MCHC RDW Plt Count MPV Absolute Nucleated RBC Nucleated RBC % (auto) Neutrophils % (Manual) Band Neutrophils % Lymphocytes % (Manual) Atypical Lymphs % (Man) Monocytes % (Manual) Eosinophils % (Manual) Basophils % (Manual) Metamyelocytes % Myelocytes % Promyelocytes % Abs Neuts (Manual) Lymphocytes # (Manual) Atyp Lymphs # (Manual) Monocytes # (Manual) Eosinophils # (Manual) Basophils # (Manual) Metamyelocytes # Myelocytes # Promyelocytes # Nucleated RBCs Toxic Granulation Toxic Vacuolation Dohle Bodies Platelet Estimate Large Platelets Giant Platelets Plt Morphology Comment RBC Morphology Polychromasia Hypochromasia Microcytosis Target Cells Ovalocytes [place] Cells PT INR VBG pH VBG pCO2 VBG pO2 VBG HCO3 VBG O2 Saturation VBG Base Excess Sodium Potassium Chloride Carbon Dioxide Anion Gap BUN Creatinine Estim Creat Clear Calc Estimated GFR POC Glucose 118 H 128 H 126 H Random Glucose Calcium Phosphorus Magnesium Total Bilirubin AST ALT Alkaline Phosphatase Total Protein Albumin Stl C. cayetanensis PCR Stool Rotavirus A PCR Stl Adenov F 40/ PCR Stool Astrovirus (PCR) Stool Campylobacter PCR Stool Cryptosporidium PCR Stl Sh Tox Pr E STEC PCR Stool E coli O157 PCR Stl Enterotoxigenic E PCR Stool EPEC (PCR) Stool EAEC (PCR) Stl E. histolytica PCR Stool Giardia Lamblia PCR Stl P. shigelloides PCR Stool Salmonella PCR Stool Sapovirus (PCR) Stl Shigella/EIEC PCR St Y.enterocolitica PCR Stool Vibrio (PCR) Stl Vibrio cholerae PCR Stl Norovirus GI/GII PCR C. difficile Tox B Gene C. difficile Toxin A&B C. difficile Interpret 12/14/24 12/14/24 12/14/24 17:49 18:54 19:58 WBC RBC Hgb Hct MCV MCH MCHC RDW Plt Count MPV Absolute Nucleated RBC Nucleated RBC % (auto) Neutrophils % (Manual) Band Neutrophils % Lymphocytes % (Manual) Atypical Lymphs % (Man) Monocytes % (Manual) Eosinophils % (Manual) Basophils % (Manual) Metamyelocytes % Myelocytes % Promyelocytes % Abs Neuts (Manual) Lymphocytes # (Manual) Atyp Lymphs # (Manual) Monocytes # (Manual) Eosinophils # (Manual) Basophils # (Manual) Metamyelocytes # Myelocytes # Promyelocytes # Nucleated RBCs Toxic Granulation Toxic Vacuolation Dohle Bodies Platelet Estimate Large Platelets Giant Platelets Plt Morphology Comment RBC Morphology Polychromasia Hypochromasia Microcytosis Target Cells Ovalocytes [place] Cells PT INR VBG pH VBG pCO2 VBG pO2 VBG HCO3 VBG O2 Saturation VBG Base Excess Sodium Potassium Chloride Carbon Dioxide Anion Gap BUN Creatinine Estim Creat Clear Calc Estimated GFR POC Glucose 134 H 144 H 154 H Random Glucose Calcium Phosphorus Magnesium Total Bilirubin AST ALT Alkaline Phosphatase Total Protein Albumin Stl C. cayetanensis PCR Stool Rotavirus A PCR Stl Adenov F 40/41 PCR Stool Astrovirus (PCR) Stool Campylobacter PCR Stool Cryptosporidium PCR Stl Sh Tox Pr E STEC PCR Stool E coli O157 PCR Stl Enterotoxigenic E PCR Stool EPEC (PCR) Stool EAEC (PCR) Stl E. histolytica PCR Stool Giardia Lamblia PCR Stl P. shigelloides PCR Stool Salmonella PCR Stool Sapovirus (PCR) Stl Shigella/EIEC PCR St Y.enterocolitica PCR Stool Vibrio (PCR) Stl Vibrio cholerae PCR Stl Norovirus GI/GII PCR C. difficile Tox B Gene C. difficile Toxin A&B C. difficile Interpret 12/14/24 12/14/24 12/14/24 20:03 20:54 22:03 WBC RBC Hgb Hct MCV MCH MCHC RDW Plt Count MPV Absolute Nucleated RBC Nucleated RBC % (auto) Neutrophils % (Manual) Band Neutrophils % Lymphocytes % (Manual) Atypical Lymphs % (Man) Monocytes % (Manual) Eosinophils % (Manual) Basophils % (Manual) Metamyelocytes % Myelocytes % Promyelocytes % Abs Neuts (Manual) Lymphocytes # (Manual) Atyp Lymphs # (Manual) Monocytes # (Manual) Eosinophils # (Manual) Basophils # (Manual) Metamyelocytes # Myelocytes # Promyelocytes # Nucleated RBCs Toxic Granulation Toxic Vacuolation Dohle Bodies Platelet Estimate Large Platelets Giant Platelets Plt Morphology Comment RBC Morphology Polychromasia Hypochromasia Microcytosis Target Cells Ovalocytes [place] Cells PT INR VBG pH VBG pCO2 VBG pO2 VBG HCO3 VBG O2 Saturation VBG Base Excess Sodium 142 Potassium 3.2 L Chloride 109 H Carbon Dioxide 22 Anion Gap 14 BUN 34 H Creatinine 1.37 Estim Creat Clear Calc 62.0 Estimated GFR 54 POC Glucose 151 H 147 H Random Glucose 148 H Calcium 8.3 L Phosphorus 4.3 Magnesium 2.5 Total Bilirubin AST ALT Alkaline Phosphatase Total Protein Albumin 2.8 L Stl C. cayetanensis PCR Stool Rotavirus A PCR Stl Adenov F 40/41 PCR Stool Astrovirus (PCR) Stool Campylobacter PCR Stool Cryptosporidium PCR Stl Sh Tox Pr E STEC PCR Stool E coli O157 PCR Stl Enterotoxigenic E PCR Stool EPEC (PCR) Stool EAEC (PCR) Stl E. histolytica PCR Stool Giardia Lamblia PCR Stl P. shigelloides PCR Stool Salmonella PCR Stool Sapovirus (PCR) Stl Shigella/EIEC PCR St Y.enterocolitica PCR Stool Vibrio (PCR) Stl Vibrio cholerae PCR Stl Norovirus GI/GII PCR C. difficile Tox B Gene C. difficile Toxin A&B C. difficile Interpret 12/14/24 12/14/24 12/15/24 22:57 23:56 00:55 WBC RBC Hgb Hct MCV MCH MCHC RDW Plt Count MPV Absolute Nucleated RBC Nucleated RBC % (auto) Neutrophils % (Manual) Band Neutrophils % Lymphocytes % (Manual) Atypical Lymphs % (Man) Monocytes % (Manual) Eosinophils % (Manual) Basophils % (Manual) Metamyelocytes % Myelocytes % Promyelocytes % Abs Neuts (Manual) Lymphocytes # (Manual) Atyp Lymphs # (Manual) Monocytes # (Manual) Eosinophils # (Manual) Basophils # (Manual) Metamyelocytes # Myelocytes # Promyelocytes # Nucleated RBCs Toxic Granulation Toxic Vacuolation Dohle Bodies Platelet Estimate Large Platelets Giant Platelets Plt Morphology Comment RBC Morphology Polychromasia Hypochromasia Microcytosis Target Cells Ovalocytes [place] Cells PT INR VBG pH VBG pCO2 VBG pO2 VBG HCO3 VBG O2 Saturation VBG Base Excess Sodium Potassium Chloride Carbon Dioxide Anion Gap BUN Creatinine Estim Creat Clear Calc Estimated GFR POC Glucose 166 H 158 H 159 H Random Glucose Calcium Phosphorus Magnesium Total Bilirubin AST ALT Alkaline Phosphatase Total Protein Albumin Stl C. cayetanensis PCR Stool Rotavirus A PCR Stl Adenov F 40/41 PCR Stool Astrovirus (PCR) Stool Campylobacter PCR Stool Cryptosporidium PCR Stl Sh Tox Pr E STEC PCR Stool E coli O157 PCR Stl Enterotoxigenic E PCR Stool EPEC (PCR) Stool EAEC (PCR) Stl E. histolytica PCR Stool Giardia Lamblia PCR Stl P. shigelloides PCR Stool Salmonella PCR Stool Sapovirus (PCR) Stl Shigella/EIEC PCR St Y.enterocolitica PCR Stool Vibrio (PCR) Stl Vibrio cholerae PCR Stl Norovirus GI/GII PCR C. difficile Tox B Gene C. difficile Toxin A&B C. difficile Interpret 12/15/24 12/15/24 12/15/24 01:58 02:56 03:56 WBC RBC Hgb Hct MCV MCH MCHC RDW Plt Count MPV Absolute Nucleated RBC Nucleated RBC % (auto) Neutrophils % (Manual) Band Neutrophils % Lymphocytes % (Manual) Atypical Lymphs % (Man) Monocytes % (Manual) Eosinophils % (Manual) Basophils % (Manual) Metamyelocytes % Myelocytes % Promyelocytes % Abs Neuts (Manual) Lymphocytes # (Manual) Atyp Lymphs # (Manual) Monocytes # (Manual) Eosinophils # (Manual) Basophils # (Manual) Metamyelocytes # Myelocytes # Promyelocytes # Nucleated RBCs Toxic Granulation Toxic Vacuolation Dohle Bodies Platelet Estimate Large Platelets Giant Platelets Plt Morphology Comment RBC Morphology Polychromasia Hypochromasia Microcytosis Target Cells Ovalocytes [place] Cells PT INR VBG pH VBG pCO2 VBG pO2 VBG HCO3 VBG O2 Saturation VBG Base Excess Sodium Potassium Chloride Carbon Dioxide Anion Gap BUN Creatinine Estim Creat Clear Calc Estimated GFR POC Glucose 166 H 171 H 169 H Random Glucose Calcium Phosphorus Magnesium Total Bilirubin AST ALT Alkaline Phosphatase Total Protein Albumin Stl C. cayetanensis PCR Stool Rotavirus A PCR Stl Adenov F 40/41 PCR Stool Astrovirus (PCR) Stool Campylobacter PCR Stool Cryptosporidium PCR Stl Sh Tox Pr E STEC PCR Stool E coli O157 PCR Stl Enterotoxigenic E PCR Stool EPEC (PCR) Stool EAEC (PCR) Stl E. histolytica PCR Stool Giardia Lamblia PCR Stl P. shigelloides PCR Stool Salmonella PCR Stool Sapovirus (PCR) Stl Shigella/EIEC PCR St Y.enterocolitica PCR Stool Vibrio (PCR) Stl Vibrio cholerae PCR Stl Norovirus GI/GII PCR C. difficile Tox B Gene C. difficile Toxin A&B C. difficile Interpret 12/15/24 12/15/24 12/15/24 05:06 05:24 05:32 WBC 17.3 H RBC 3.14 L Hgb 7.7 L Hct 23.9 L MCV 76.1 L MCH 24.5 L MCHC 32.2 RDW 20.2 H Plt Count 401 H MPV 11.1 Absolute Nucleated RBC 0.070 H Nucleated RBC % (auto) 0.4 H Neutrophils % (Manual) 60 Band Neutrophils % 14 H Lymphocytes % (Manual) 4 L Atypical Lymphs % (Man) Monocytes % (Manual) 7 Eosinophils % (Manual) 11 H Basophils % (Manual) Metamyelocytes % 2 Myelocytes % 1 Promyelocytes % 1 Abs Neuts (Manual) 12.8 H Lymphocytes # (Manual) 0.7 L Atyp Lymphs # (Manual) Monocytes # (Manual) 1.2 Eosinophils # (Manual) 1.9 H Basophils # (Manual) Metamyelocytes # 0.3 Myelocytes # 0.2 Promyelocytes # 0.2 Nucleated RBCs 2 H Toxic Granulation PRESENT Toxic Vacuolation PRESENT Dohle Bodies PRESENT Platelet Estimate NORMAL Large Platelets PRESENT Giant Platelets PRESENT Plt Morphology Comment NOTED RBC Morphology NOTED Polychromasia 1+ (0-2) Hypochromasia 1+ (5-14) Microcytosis 1+ (5-14) Target Cells 1+ (5-14) Ovalocytes 1+ (5-14) [place] Cells 1+ (0-2) PT 17.1 H INR 1.5 H VBG pH 7.45 H VBG pCO2 32 VBG pO2 56 VBG HCO3 22 VBG O2 Saturation Not Reportable VBG Base Excess -0.5 Sodium 141 Potassium 3.4 Chloride 109 H Carbon Dioxide 20 L Anion Gap 15 BUN 32 H Creatinine 1.35 Estim Creat Clear Calc 64.1 Estimated GFR 55 POC Glucose 166 H Random Glucose 184 H Calcium 8.2 L Phosphorus 4.3 Magnesium 2.5 Total Bilirubin 0.6 AST 30 ALT < 6 Alkaline Phosphatase 59 Total Protein 5.7 L Albumin 3.0 L Stl C. cayetanensis PCR Stool Rotavirus A PCR Stl Adenov F 40/ PCR Stool Astrovirus (PCR) Stool Campylobacter PCR Stool Cryptosporidium PCR Stl Sh Tox Pr E STEC PCR Stool E coli O157 PCR Stl Enterotoxigenic E PCR Stool EPEC (PCR) Stool EAEC (PCR) Stl E. histolytica PCR Stool Giardia Lamblia PCR Stl P. shigelloides PCR Stool Salmonella PCR Stool Sapovirus (PCR) Stl Shigella/EIEC PCR St Y.enterocolitica PCR Stool Vibrio (PCR) Stl Vibrio cholerae PCR Stl Norovirus GI/GII PCR C. difficile Tox B Gene C. difficile Toxin A&B C. difficile Interpret 12/15/24 05:58 WBC RBC Hgb Hct MCV MCH MCHC RDW Plt Count MPV Absolute Nucleated RBC Nucleated RBC % (auto) Neutrophils % (Manual) Band Neutrophils % Lymphocytes % (Manual) Atypical Lymphs % (Man) Monocytes % (Manual) Eosinophils % (Manual) Basophils % (Manual) Metamyelocytes % Myelocytes % Promyelocytes % Abs Neuts (Manual) Lymphocytes # (Manual) Atyp Lymphs # (Manual) Monocytes # (Manual) Eosinophils # (Manual) Basophils # (Manual) Metamyelocytes # Myelocytes # Promyelocytes # Nucleated RBCs Toxic Granulation Toxic Vacuolation Dohle Bodies Platelet Estimate Large Platelets Giant Platelets Plt Morphology Comment RBC Morphology Polychromasia Hypochromasia Microcytosis Target Cells Ovalocytes [place] Cells PT INR VBG pH VBG pCO2 VBG pO2 VBG HCO3 VBG O2 Saturation VBG Base Excess Sodium Potassium Chloride Carbon Dioxide Anion Gap BUN Creatinine Estim Creat Clear Calc Estimated GFR POC Glucose 165 H Random Glucose Calcium Phosphorus Magnesium Total Bilirubin AST ALT Alkaline Phosphatase Total Protein Albumin Stl C. cayetanensis PCR Stool Rotavirus A PCR Stl Adenov F 40 PCR Stool Astrovirus (PCR) Stool Campylobacter PCR Stool Cryptosporidium PCR Stl Sh Tox Pr E STEC PCR Stool E coli O157 PCR Stl Enterotoxigenic E PCR Stool EPEC (PCR) Stool EAEC (PCR) Stl E. histolytica PCR Stool Giardia Lamblia PCR Stl P. shigelloides PCR Stool Salmonella PCR Stool Sapovirus (PCR) Stl Shigella/EIEC PCR St Y.enterocolitica PCR Stool Vibrio (PCR) Stl Vibrio cholerae PCR Stl Norovirus GI/GII PCR C. difficile Tox B Gene C. difficile Toxin A&B C. difficile Interpret Microbiology Microbiology Results: Microbiology 12/09/24 08:54 Gastric Fluid Gram Stain - Final 12/09/24 08:54 Gastric Fluid Anaerobic Culture - Final 12/09/24 08:54 Gastric Fluid Body Fluid Culture - Final Klebsiella pneumoniae Flavia species Viridans streptococcus group 12/05/24 20:15 Peritoneal Fluid Gram Stain - Final 12/05/24 20:15 Peritoneal Fluid Routine Culture - Final Klebsiella pneumoniae Escherichia coli Bacillus species Pseudomonas species 12/05/24 20:15 Peritoneal Fluid Anaerobic Culture - Final 12/05/24 16:52 Blood - Venous Blood Culture - Final Escherichia coli Bacteroides fragilis group 12/05/24 16:52 Blood - Venous Blood Culture - Final Escherichia coli Bacteroides fragilis group Progress Note: A&P Assessment and plan (1) Atrial fibrillation with tachycardic ventricular rate: Status: Acute (2) Acute diverticulitis: Status: Acute (3) Colonic mass: Status: Acute (4) Diverticulitis of colon with perforation: Status: Acute (5) S/P colostomy: Status: Acute (6) Status post laparoscopic-assisted sigmoidectomy: Status: Acute (7) Perforated viscus: Status: Acute (8) Peritonitis: Status: Acute (9) Anemia: Status: Acute (10) Colon cancer: Status: Acute (11) E coli bacteremia: Status: Acute (12) Rotator cuff tear, right: Status: Acute (13) Right shoulder pain: Status: Acute (14) Acute hypoxemic respiratory failure: Status: Acute Plan So with heart rate coming down I am going to chipped down on the propofol as he still remains unresponsive on the 40 mcg so will come down to 30 and observe and I am going to withhold his amiodarone drip and IV digoxin because as the sepsis inflammatory issue resolves I do think his heart will spontaneously convert to sinus and his antibiotics will remain as above and were starting back on low- dose enteral feedings Quality Stroke Does the patient have a stroke diagnosis?: No VTE Prior VTE?: No VTE Risk Level:: Medical - moderate - high VTE Device Contraindication: N/A - Device Ordered VTE Drug Contraindication: N/A - Med Ordered
--- NOTE | 2024-12-15 06:23 | HO.SKINPHOTO ---
Location: Posterior left head
--- NOTE | 2024-12-15 06:24 | PC.NURSE ---
Assumed care at 1900. Patient continues on ventilatory support. Propofol gtt running per AUG, RASS -3, grimaces with oral care and movement but little eye opening, does not track or follow commands. Afib/Aflutter on tele, rate 60s-90s. Levophed gtt for BP support running per AUG, amio gtt running per AUG. Generalized non pitting edema to extremities, appreciable non pitting scrotal edema. Patient continues on pressure control settings, see vent assessment. Abdomen large and round, faint bowel sounds x4. New ostomy to right abdomen passing flatus but no stool. NGT to left nare clamped and secured. Left LEÓN drain draining ceballos/brown fluid, see I&O. Insulin gtt running per AUG. Sanchez in place and patent, draining clear yellow urine with some sediment. Skin overall warm and moist, diffuse red rash to posterior body. DTI to coccyx, see skin note. While washing hair, this RN noticed a wound to posterior left head, see skin note. Tmax 102.2, ice packs applied and IV tylenol administered per AUG with good effect. SEE N[place]ira aware of all critical labs and values, bed locked in lowest position, repositioned Q2HR, bed alarm on.
[2024-12-15 07:14] LABS: Glucose, Whole Blood 168 mg/dL (60-115)
[2024-12-15] MEDS: Insulin Regular/NS 100 UNIT/100 ML PLAST..BAG IVCONT (07:26)
--- NOTE | 2024-12-15 07:30 | P.PNGS_ITS ---
Subjective Subjective Date of Service: 12/15/24 <Amy Alaniz PA-C - Last Filed: 12/15/24 07:33> 12/15/24 <Bam Collazo MD - Last Filed: 12/15/24 08:41> Interval history: Remains intubated. In A fib. WBC rising. Ostomy now with flatus per nursing. <Amy Alaniz PA-C - Last Filed: 12/15/24 07:33> Physical Exam 2 Vital Signs: Vital Signs: Last Vital Signs Temp 101.5 F H 12/15/24 07:00 Pulse 80 12/15/24 07:00 Resp 23 H 12/15/24 07:00 BP 116/58 L 12/15/24 07:00 Pulse Ox 93 12/15/24 07:00 O2 Del Method Mechanical Ventil ation 12/15/24 07:00 FiO2 40 12/15/24 07:00 BMI result Body Mass Index 32.0 <Amy Alaniz PA-C - Last Filed: 12/15/24 07:33> Resp: Other: intubated <Amy Alaniz PA-C - Last Filed: 12/15/24 07:33> GI: Other: ostomt edematous, pink, some gas in appliance midline incision clean LEÓN drain with serous appearing drainage abd mildly distended <Amy Alaniz PA-C - Last Filed: 12/15/24 07:33> Palpation (GI): Soft to palpation and not rigid <JYOTI Madrigal Last Filed: 12/15/24 07:33> Objective Data Active Medications Chlorhexidine Gluconate (Chlorhexidine Gluc Oral Rinse 15 Ml Mouthwash) 15 ml BUCCAL Q8H [place] Last Admin: 12/15/24 01:12 Dose: 15 ml Documented By: SUPPLEK Dextrose (Dextrose 50 % 25 Gm/50 Ml Syringe) 25 gm IVPUSH Q15M PRN; Protocol PRN Reason: per Hypoglycemia Standing Ord. Dextrose (Dextrose 50 % 25 Gm/50 Ml Syringe) 25 gm IVPUSH Q15M PRN PRN Reason: per Hypoglycemia Standing Ord. Digoxin (Digoxin 0.5 Mg/2 Ml Ampul) 0.125 mg IVPUSH DAILY [facility]; Protocol Famotidine (Famotidine/Pf 20 Mg/2 Ml Vial) 20 mg IVPUSH DAILY [place] Last Admin: 12/14/24 09:02 Dose: 20 mg Documented By: LINCOLN Glucose (Glucose Gel 15 Gm Gel..Gram.) 15 gm PO Q15M PRN; Protocol PRN Reason: per Hypoglycemia Standing Ord. Heparin Sodium (Porcine) (Heparin Sodium,Porcine 5,000 Unit/Ml Vial) 5,000 unit SUBCUT Q8H [place] Last Admin: 12/15/24 01:19 Dose: 5,000 unit Documented By: PERFECTO Hydrocortisone (Hydrocortisone 1 % Cream 28.35 Gm Tube) 1 appl TOPICAL BID [facility]; Protocol Last Admin: 12/14/24 20:08 Dose: 1 appl Documented By: PERFECTO Propofol (Diprivan) 1,000 mg in 100 mls @ 0 mls/hr IVCONT .Q0M [place]; Protocol Last Admin: 12/15/24 05:57 Dose: 40 mcg/kg/min, 20.69 mls/hr Documented By: PERFECTO Norepinephrine Bitartrate (Levophed) 8 mg in 250 mls @ 0 mls/hr IVCONT .Q0M [place]; Protocol Last Admin: 12/15/24 03:58 Dose: 0.1 mcg/kg/min, 16.16 mls/hr Documented By: PERFECTO Amiodarone HCl 900 mg/ Sodium (Chloride) 518 mls @ 17.267 mls/hr IVCONT .Q24H [place] Last Infusion: 12/14/24 17:41 Dose: 0.5 mg/min, 17.27 mls/hr Documented By: LINCOLN Insulin Human Regular (Myxredlin) 100 unit in 100 mls @ 0 mls/hr IVCONT .Q0M [place]; Protocol Last Admin: 12/15/24 07:26 Dose: 5 unit/hr, 5 mls/hr Documented By: RAYMOND Co-signed By: JES Metronidazole (Flagyl) 500 mg in 100 mls @ 100 mls/hr IV Q8H [place] Last Infusion: 12/15/24 02:12 Dose: Infused Documented By: PERFECTO Nutrition (Parenteral) (Parenteral Nutrition) 1,920 mls @ 80 mls/hr IV .Q24H [place]; Protocol Stop: 12/15/24 20:59 Last Admin: 12/14/24 20:39 Dose: 80 mls/hr Documented By: PERFECTO Albumin Human (Kedbumin 25 %) 100 mls @ 100 mls/hr IV Q6H [facility] Stop: 12/15/24 15:59 Last Infusion: 12/15/24 03:13 Dose: Infused Documented By: PERFECTO Insulin Glargine (Insulin Glargine,Hum.Rec.Anlog 100 Unit/Ml 10 Ml Vial) 20 unit SUBCUT DAILY [facility] Last Admin: 12/14/24 09:03 Dose: 20 unit Documented By: LINCOLN Magnesium Hydroxide (Milk Of Magnesia 30 Ml Oral.Susp) 30 ml PO DAILY PRN PRN Reason: Constipation Melatonin (Melatonin 3 Mg Tablet) 6 mg PO BEDTIME PRN PRN Reason: Insomnia Meropenem (Meropenem 1 Gm Vial) 1 gm IVPUSH Q8H [facility] Last Admin: 12/15/24 02:09 Dose: 1 gm Documented By: PERFECTO Naloxone HCl (Naloxone Hcl 0.4 Mg/Ml Vial) 0.2 mg IVPUSH Q2M PRN PRN Reason: Excessive sedation or RR < 8 Pharmacy Consult (Consult Rx Parenteral Nutrition Ordering) 1 each MISCELLANE DAILY PRN PRN Reason: Consult order Sodium Chloride (0.9 % Sodium Chloride Flush 3 Ml Syringe) 3 ml IVFLUSH QSHIFT [facility] Last Admin: 12/15/24 07:22 Dose: 3 ml Documented By: RAYMOND <Amy Alaniz PA-C - Last Filed: 12/15/24 07:33> Labs CBC & Chem 7: 12/15/24 05:24 12/15/24 05:24 <Amy Alaniz PA-C - Last Filed: 12/15/24 07:33> Labs: Laboratory Results - last 24 hr 12/14/24 12/14/24 12/14/24 08:12 10:35 10:40 MCV MCH MCHC RDW Plt Count MPV Absolute Nucleated RBC Nucleated RBC % (auto) Neutrophils % (Manual) Band Neutrophils % Lymphocytes % (Manual) Monocytes % (Manual) Eosinophils % (Manual) Metamyelocytes % Myelocytes % Promyelocytes % Abs Neuts (Manual) Lymphocytes # (Manual) Monocytes # (Manual) Eosinophils # (Manual) Metamyelocytes # Myelocytes # Promyelocytes # Nucleated RBCs Toxic Granulation Toxic Vacuolation Dohle Bodies Platelet Estimate Large Platelets Giant Platelets Plt Morphology Comment RBC Morphology Polychromasia Hypochromasia Microcytosis Target Cells Ovalocytes Enigma Cells PT INR VBG pH VBG pCO2 VBG pO2 VBG HCO3 VBG O2 Saturation VBG Base Excess Anion Gap Estim Creat Clear Calc Estimated GFR POC Glucose 138 H 129 H Random Glucose Calcium Phosphorus Magnesium Total Bilirubin AST ALT Alkaline Phosphatase Total Protein Albumin Stl C. cayetanensis PCR Cancelled Stool Rotavirus A PCR Cancelled Stl Adenov F 40/41 PCR Cancelled Stool Astrovirus (PCR) Cancelled Stool Campylobacter PCR Cancelled Stool Cryptosporidium PCR Cancelled Stl Sh Tox Pr E STEC PCR Cancelled Stool E coli O157 PCR Cancelled Stl Enterotoxigenic E PCR Cancelled Stool EPEC (PCR) Cancelled Stool EAEC (PCR) Cancelled Stl E. histolytica PCR Cancelled Stool Giardia Lamblia PCR Cancelled Stl P. shigelloides PCR Cancelled Stool Salmonella PCR Cancelled Stool Sapovirus (PCR) Cancelled Stl Shigella/EIEC PCR Cancelled St Y.enterocolitica PCR Cancelled Stool Vibrio (PCR) Cancelled Stl Vibrio cholerae PCR Cancelled Stl Norovirus GI/GII PCR Cancelled C. difficile Tox B Gene C. difficile Toxin A&B C. difficile Interpret 12/14/24 12/14/24 12/14/24 10:49 11:44 12:45 MCV MCH MCHC RDW Plt Count MPV Absolute Nucleated RBC Nucleated RBC % (auto) Neutrophils % (Manual) Band Neutrophils % Lymphocytes % (Manual) Monocytes % (Manual) Eosinophils % (Manual) Metamyelocytes % Myelocytes % Promyelocytes % Abs Neuts (Manual) Lymphocytes # (Manual) Monocytes # (Manual) Eosinophils # (Manual) Metamyelocytes # Myelocytes # Promyelocytes # Nucleated RBCs Toxic Granulation Toxic Vacuolation Dohle Bodies Platelet Estimate Large Platelets Giant Platelets Plt Morphology Comment RBC Morphology Polychromasia Hypochromasia Microcytosis Target Cells Ovalocytes Enigma Cells PT INR VBG pH VBG pCO2 VBG pO2 VBG HCO3 VBG O2 Saturation VBG Base Excess Anion Gap Estim Creat Clear Calc Estimated GFR POC Glucose 129 H Random Glucose Calcium Phosphorus Magnesium Total Bilirubin AST ALT Alkaline Phosphatase Total Protein Albumin Stl C. cayetanensis PCR Not Detected Stool Rotavirus A PCR Not Detected Stl Adenov F 40/ PCR Not Detected Stool Astrovirus (PCR) Not Detected Stool Campylobacter PCR Not Detected Stool Cryptosporidium PCR Not Detected Stl Sh Tox Pr E STEC PCR Not Detected Stool E coli O157 PCR Not applicable Stl Enterotoxigenic E PCR Not Detected Stool EPEC (PCR) Not Detected Stool EAEC (PCR) Not Detected Stl E. histolytica PCR Not Detected Stool Giardia Lamblia PCR Not Detected Stl P. shigelloides PCR Not Detected Stool Salmonella PCR Not Detected Stool Sapovirus (PCR) Not Detected Stl Shigella/EIEC PCR Not Detected St Y.enterocolitica PCR Not Detected Stool Vibrio (PCR) Not Detected Stl Vibrio cholerae PCR Not Detected Stl Norovirus GI/GII PCR Not Detected C. difficile Tox B Gene POSITIVE A* C. difficile Toxin A&B Negative C. difficile Interpret SEE NOTE 12/14/24 12/14/24 12/14/24 14:15 15:14 15:51 MCV MCH MCHC RDW Plt Count MPV Absolute Nucleated RBC Nucleated RBC % (auto) Neutrophils % (Manual) Band Neutrophils % Lymphocytes % (Manual) Monocytes % (Manual) Eosinophils % (Manual) Metamyelocytes % Myelocytes % Promyelocytes % Abs Neuts (Manual) Lymphocytes # (Manual) Monocytes # (Manual) Eosinophils # (Manual) Metamyelocytes # Myelocytes # Promyelocytes # Nucleated RBCs Toxic Granulation Toxic Vacuolation Dohle Bodies Platelet Estimate Large Platelets Giant Platelets Plt Morphology Comment RBC Morphology Polychromasia Hypochromasia Microcytosis Target Cells Ovalocytes Enigma Cells PT INR VBG pH VBG pCO2 VBG pO2 VBG HCO3 VBG O2 Saturation VBG Base Excess Anion Gap Estim Creat Clear Calc Estimated GFR POC Glucose 115 118 H 128 H Random Glucose Calcium Phosphorus Magnesium Total Bilirubin AST ALT Alkaline Phosphatase Total Protein Albumin Stl C. cayetanensis PCR Stool Rotavirus A PCR Stl Adenov F 40/41 PCR Stool Astrovirus (PCR) Stool Campylobacter PCR Stool Cryptosporidium PCR Stl Sh Tox Pr E STEC PCR Stool E coli O157 PCR Stl Enterotoxigenic E PCR Stool EPEC (PCR) Stool EAEC (PCR) Stl E. histolytica PCR Stool Giardia Lamblia PCR Stl P. shigelloides PCR Stool Salmonella PCR Stool Sapovirus (PCR) Stl Shigella/EIEC PCR St Y.enterocolitica PCR Stool Vibrio (PCR) Stl Vibrio cholerae PCR Stl Norovirus GI/GII PCR C. difficile Tox B Gene C. difficile Toxin A&B C. difficile Interpret 12/14/24 12/14/24 12/14/24 17:08 17:49 18:54 MCV MCH MCHC RDW Plt Count MPV Absolute Nucleated RBC Nucleated RBC % (auto) Neutrophils % (Manual) Band Neutrophils % Lymphocytes % (Manual) Monocytes % (Manual) Eosinophils % (Manual) Metamyelocytes % Myelocytes % Promyelocytes % Abs Neuts (Manual) Lymphocytes # (Manual) Monocytes # (Manual) Eosinophils # (Manual) Metamyelocytes # Myelocytes # Promyelocytes # Nucleated RBCs Toxic Granulation Toxic Vacuolation Dohle Bodies Platelet Estimate Large Platelets Giant Platelets Plt Morphology Comment RBC Morphology Polychromasia Hypochromasia Microcytosis Target Cells Ovalocytes Enigma Cells PT INR VBG pH VBG pCO2 VBG pO2 VBG HCO3 VBG O2 Saturation VBG Base Excess Anion Gap Estim Creat Clear Calc Estimated GFR POC Glucose 126 H 134 H 144 H Random Glucose Calcium Phosphorus Magnesium Total Bilirubin AST ALT Alkaline Phosphatase Total Protein Albumin Stl C. cayetanensis PCR Stool Rotavirus A PCR Stl Adenov F 40/41 PCR Stool Astrovirus (PCR) Stool Campylobacter PCR Stool Cryptosporidium PCR Stl Sh Tox Pr E STEC PCR Stool E coli O157 PCR Stl Enterotoxigenic E PCR Stool EPEC (PCR) Stool EAEC (PCR) Stl E. histolytica PCR Stool Giardia Lamblia PCR Stl P. shigelloides PCR Stool Salmonella PCR Stool Sapovirus (PCR) Stl Shigella/EIEC PCR St Y.enterocolitica PCR Stool Vibrio (PCR) Stl Vibrio cholerae PCR Stl Norovirus GI/GII PCR C. difficile Tox B Gene C. difficile Toxin A&B C. difficile Interpret 12/14/24 12/14/24 12/14/24 19:58 20:03 20:54 MCV MCH MCHC RDW Plt Count MPV Absolute Nucleated RBC Nucleated RBC % (auto) Neutrophils % (Manual) Band Neutrophils % Lymphocytes % (Manual) Monocytes % (Manual) Eosinophils % (Manual) Metamyelocytes % Myelocytes % Promyelocytes % Abs Neuts (Manual) Lymphocytes # (Manual) Monocytes # (Manual) Eosinophils # (Manual) Metamyelocytes # Myelocytes # Promyelocytes # Nucleated RBCs Toxic Granulation Toxic Vacuolation Dohle Bodies Platelet Estimate Large Platelets Giant Platelets Plt Morphology Comment RBC Morphology Polychromasia Hypochromasia Microcytosis Target Cells Ovalocytes Enigma Cells PT INR VBG pH VBG pCO2 VBG pO2 VBG HCO3 VBG O2 Saturation VBG Base Excess Anion Gap 14 Estim Creat Clear Calc 62.0 Estimated GFR 54 POC Glucose 154 H 151 H Random Glucose 148 H Calcium 8.3 L Phosphorus 4.3 Magnesium 2.5 Total Bilirubin AST ALT Alkaline Phosphatase Total Protein Albumin 2.8 L Stl C. cayetanensis PCR Stool Rotavirus A PCR Stl Adenov F 40/41 PCR Stool Astrovirus (PCR) Stool Campylobacter PCR Stool Cryptosporidium PCR Stl Sh Tox Pr E STEC PCR Stool E coli O157 PCR Stl Enterotoxigenic E PCR Stool EPEC (PCR) Stool EAEC (PCR) Stl E. histolytica PCR Stool Giardia Lamblia PCR Stl P. shigelloides PCR Stool Salmonella PCR Stool Sapovirus (PCR) Stl Shigella/EIEC PCR St Y.enterocolitica PCR Stool Vibrio (PCR) Stl Vibrio cholerae PCR Stl Norovirus GI/GII PCR C. difficile Tox B Gene C. difficile Toxin A&B C. difficile Interpret 12/14/24 12/14/24 12/14/24 22:03 22:57 23:56 MCV MCH MCHC RDW Plt Count MPV Absolute Nucleated RBC Nucleated RBC % (auto) Neutrophils % (Manual) Band Neutrophils % Lymphocytes % (Manual) Monocytes % (Manual) Eosinophils % (Manual) Metamyelocytes % Myelocytes % Promyelocytes % Abs Neuts (Manual) Lymphocytes # (Manual) Monocytes # (Manual) Eosinophils # (Manual) Metamyelocytes # Myelocytes # Promyelocytes # Nucleated RBCs Toxic Granulation Toxic Vacuolation Dohle Bodies Platelet Estimate Large Platelets Giant Platelets Plt Morphology Comment RBC Morphology Polychromasia Hypochromasia Microcytosis Target Cells Ovalocytes Enigma Cells PT INR VBG pH VBG pCO2 VBG pO2 VBG HCO3 VBG O2 Saturation VBG Base Excess Anion Gap Estim Creat Clear Calc Estimated GFR POC Glucose 147 H 166 H 158 H Random Glucose Calcium Phosphorus Magnesium Total Bilirubin AST ALT Alkaline Phosphatase Total Protein Albumin Stl C. cayetanensis PCR Stool Rotavirus A PCR Stl Adenov F 40/ PCR Stool Astrovirus (PCR) Stool Campylobacter PCR Stool Cryptosporidium PCR Stl Sh Tox Pr E STEC PCR Stool E coli O157 PCR Stl Enterotoxigenic E PCR Stool EPEC (PCR) Stool EAEC (PCR) Stl E. histolytica PCR Stool Giardia Lamblia PCR Stl P. shigelloides PCR Stool Salmonella PCR Stool Sapovirus (PCR) Stl Shigella/EIEC PCR St Y.enterocolitica PCR Stool Vibrio (PCR) Stl Vibrio cholerae PCR Stl Norovirus GI/GII PCR C. difficile Tox B Gene C. difficile Toxin A&B C. difficile Interpret 12/15/24 12/15/24 12/15/24 00:55 01:58 02:56 MCV MCH MCHC RDW Plt Count MPV Absolute Nucleated RBC Nucleated RBC % (auto) Neutrophils % (Manual) Band Neutrophils % Lymphocytes % (Manual) Monocytes % (Manual) Eosinophils % (Manual) Metamyelocytes % Myelocytes % Promyelocytes % Abs Neuts (Manual) Lymphocytes # (Manual) Monocytes # (Manual) Eosinophils # (Manual) Metamyelocytes # Myelocytes # Promyelocytes # Nucleated RBCs Toxic Granulation Toxic Vacuolation Dohle Bodies Platelet Estimate Large Platelets Giant Platelets Plt Morphology Comment RBC Morphology Polychromasia Hypochromasia Microcytosis Target Cells Ovalocytes Enigma Cells PT INR VBG pH VBG pCO2 VBG pO2 VBG HCO3 VBG O2 Saturation VBG Base Excess Anion Gap Estim Creat Clear Calc Estimated GFR POC Glucose 159 H 166 H 171 H Random Glucose Calcium Phosphorus Magnesium Total Bilirubin AST ALT Alkaline Phosphatase Total Protein Albumin Stl C. cayetanensis PCR Stool Rotavirus A PCR Stl Adenov F 40/41 PCR Stool Astrovirus (PCR) Stool Campylobacter PCR Stool Cryptosporidium PCR Stl Sh Tox Pr E STEC PCR Stool E coli O157 PCR Stl Enterotoxigenic E PCR Stool EPEC (PCR) Stool EAEC (PCR) Stl E. histolytica PCR Stool Giardia Lamblia PCR Stl P. shigelloides PCR Stool Salmonella PCR Stool Sapovirus (PCR) Stl Shigella/EIEC PCR St Y.enterocolitica PCR Stool Vibrio (PCR) Stl Vibrio cholerae PCR Stl Norovirus GI/GII PCR C. difficile Tox B Gene C. difficile Toxin A&B C. difficile Interpret 12/15/24 12/15/24 12/15/24 03:56 05:06 05:24 MCV 76.1 L MCH 24.5 L MCHC 32.2 RDW 20.2 H Plt Count 401 H MPV 11.1 Absolute Nucleated RBC 0.070 H Nucleated RBC % (auto) 0.4 H Neutrophils % (Manual) 60 Band Neutrophils % 14 H Lymphocytes % (Manual) 4 L Monocytes % (Manual) 7 Eosinophils % (Manual) 11 H Metamyelocytes % 2 Myelocytes % 1 Promyelocytes % 1 Abs Neuts (Manual) 12.8 H Lymphocytes # (Manual) 0.7 L Monocytes # (Manual) 1.2 Eosinophils # (Manual) 1.9 H Metamyelocytes # 0.3 Myelocytes # 0.2 Promyelocytes # 0.2 Nucleated RBCs 2 H Toxic Granulation PRESENT Toxic Vacuolation PRESENT Dohle Bodies PRESENT Platelet Estimate NORMAL Large Platelets PRESENT Giant Platelets PRESENT Plt Morphology Comment NOTED RBC Morphology NOTED Polychromasia 1+ (0-2) Hypochromasia 1+ (5-14) Microcytosis 1+ (5-14) Target Cells 1+ (5-14) Ovalocytes 1+ (5-14) [place] Cells 1+ (0-2) PT 17.1 H INR 1.5 H VBG pH VBG pCO2 VBG pO2 VBG HCO3 VBG O2 Saturation VBG Base Excess Anion Gap 15 Estim Creat Clear Calc 64.1 Estimated GFR 55 POC Glucose 169 H 166 H Random Glucose 184 H Calcium 8.2 L Phosphorus 4.3 Magnesium 2.5 Total Bilirubin 0.6 AST 30 ALT < 6 Alkaline Phosphatase 59 Total Protein 5.7 L Albumin 3.0 L Stl C. cayetanensis PCR Stool Rotavirus A PCR Stl Adenov F 40/41 PCR Stool Astrovirus (PCR) Stool Campylobacter PCR Stool Cryptosporidium PCR Stl Sh Tox Pr E STEC PCR Stool E coli O157 PCR Stl Enterotoxigenic E PCR Stool EPEC (PCR) Stool EAEC (PCR) Stl E. histolytica PCR Stool Giardia Lamblia PCR Stl P. shigelloides PCR Stool Salmonella PCR Stool Sapovirus (PCR) Stl Shigella/EIEC PCR St Y.enterocolitica PCR Stool Vibrio (PCR) Stl Vibrio cholerae PCR Stl Norovirus GI/GII PCR C. difficile Tox B Gene C. difficile Toxin A&B C. difficile Interpret 12/15/24 12/15/24 12/15/24 05:32 05:58 07:07 MCV MCH MCHC RDW Plt Count MPV Absolute Nucleated RBC Nucleated RBC % (auto) Neutrophils % (Manual) Band Neutrophils % Lymphocytes % (Manual) Monocytes % (Manual) Eosinophils % (Manual) Metamyelocytes % Myelocytes % Promyelocytes % Abs Neuts (Manual) Lymphocytes # (Manual) Monocytes # (Manual) Eosinophils # (Manual) Metamyelocytes # Myelocytes # Promyelocytes # Nucleated RBCs Toxic Granulation Toxic Vacuolation Dohle Bodies Platelet Estimate Large Platelets Giant Platelets Plt Morphology Comment RBC Morphology Polychromasia Hypochromasia Microcytosis Target Cells Ovalocytes Enigma Cells PT INR VBG pH 7.45 H VBG pCO2 32 VBG pO2 56 VBG HCO3 22 VBG O2 Saturation Not Reportable VBG Base Excess -0.5 Anion Gap Estim Creat Clear Calc Estimated GFR POC Glucose 165 H 168 H Random Glucose Calcium Phosphorus Magnesium Total Bilirubin AST ALT Alkaline Phosphatase Total Protein Albumin Stl C. cayetanensis PCR Stool Rotavirus A PCR Stl Adenov F PCR Stool Astrovirus (PCR) Stool Campylobacter PCR Stool Cryptosporidium PCR Stl Sh Tox Pr E STEC PCR Stool E coli O157 PCR Stl Enterotoxigenic E PCR Stool EPEC (PCR) Stool EAEC (PCR) Stl E. histolytica PCR Stool Giardia Lamblia PCR Stl P. shigelloides PCR Stool Salmonella PCR Stool Sapovirus (PCR) Stl Shigella/EIEC PCR St Y.enterocolitica PCR Stool Vibrio (PCR) Stl Vibrio cholerae PCR Stl Norovirus GI/GII PCR C. difficile Tox B Gene C. difficile Toxin A&B C. difficile Interpret <Amy Alaniz PA-C - Last Filed: 12/15/24 07:33> Microbiology Microbiology Results: Microbiology 12/09/24 08:54 Gram Stain - Final Gastric Fluid Anaerobic Culture - Final Body Fluid Culture - Final Klebsiella pneumoniae Flavia species Viridans streptococcus group <Amy Alaniz PA-C - Last Filed: 12/15/24 07:33> Procedures Date of Service Date of Service: 12/15/24 <JYOTI Madrigal Last Filed: 12/15/24 07:33> 12/15/24 <Bam Collazo MD - Last Filed: 12/15/24 08:41> Progress Note: A&P Assessment and plan (1) Perforated viscus: Status: Acute <Amy Alaniz PA-C - Last Filed: 12/15/24 07:33> Assessment and Plan: Remains intubated On low-dose pressors as per nursing staff, passing flatus via the stoma Abdomen is soft Good urine output WBC still elevated Strip LEÓN drain to keep this patent and allow drainage of intra-abdominal fluid IV antibiotics Okay to restart low-dose tube feeds ICU care <Bam Collazo MD - Last Filed: 12/15/24 08:41> (2) S/P colostomy: Status: Acute <Amy Alaniz PA-C - Last Filed: 12/15/24 07:33> Assessment and Plan: Status post laparotomy, resection of large perforated tumor, 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 Found to have profound fecal contamination and fecal peritonitis throughout the entire peritoneal cavity. Remains intubated in ICU on pressors. Remains febrile, WBC continues to trend up. CT scan Saturday diffuse intraabdominal fluid - LEÓN with diminished output, drain needs to be stripped periodically to prevent clogging and allow for drainage. Stoma now with flatus, prolonged return of GI function anticipated due to fecal peritonitis. Can resume trickle tube feeds. Cont IV antimicrobials. Further restorative measures per ICU team. <Amy Alaniz PA-C - Last Filed: 12/15/24 07:33> Time Spent With Patient Time: Total time managing care of this patient today ____ minutes. <JYOTI Madrigal Last Filed: 12/15/24 07:33> Quality Stroke Does the patient have a stroke diagnosis?: No <Amy Alaniz PA-C - Last Filed: 12/15/24 07:33> VTE Prior VTE?: No <JYOTI Madrigal Last Filed: 12/15/24 07:33> VTE Risk Level:: Medical - moderate - high <JYOTI Madrigal Last Filed: 12/15/24 07:33> VTE Device Contraindication: N/A - Device Ordered <JYOTI Madrigal Last Filed: 12/15/24 07:33> VTE Drug Contraindication: N/A - Med Ordered <JYOTI Madrigal Last Filed: 12/15/24 07:33>
[2024-12-15 08:15] LABS: Glucose, Whole Blood 179 mg/dL (60-115)
[2024-12-15] MEDS: Insulin Glargine,Hum.rec.anlog 100 UNIT/ML 10 ML VIAL 20 UNIT SUBCUT (08:21)
[2024-12-15] MEDS: Hydrocortisone 1 % Cream 28.35 GM TUBE 1 APPL TOPICAL ×2 (08:22→22:00)
--- NOTE | 2024-12-15 09:17 | MHC.CLN ---
F/U PT REMAINS INTUBATED AND SEDATED REVIEWED LABS DISCUSSED WITH PHARMACY CONTINUE TPN AT 80ML/HR PROVIDES 1363KCALS (1909KCALS WITH SEDATION), 288G DEXTROSE, 96G PROTEIN (1.3G/KG) HOLD LIPIDS REPLETE LYTES NEEDED RE-STARTING JEVITY 1.0 PER SURGICAL TEAM AT MAX GOAL RATE 20ML/HR PROVIDES 509KCALS (2418 TOTAL KCALS WITH SEDATION AND TPN; 33KCALS/KG BASED ON CMW), 21G PROTEIN (117G PROTEIN TOTAL WITH TPN; 1.6G/KG), 401ML FREE WATER FROM FORMULA MONITOR TOLERANCE AND LYTES
[2024-12-15 10:10] LABS: Glucose, Whole Blood 188 mg/dL (60-115)
[2024-12-15 11:49] LABS: Glucose, Whole Blood 173 mg/dL (60-115)
--- NOTE | 2024-12-15 12:25 | MHC.CM.PN ---
Pt remains intubated in ICU: now with ostomy flatus and rising WBC. Medications adjusted: surgery following. Pt's condition remains fragile and his d/c plan remains undetermined. Pt originally came from home without services. He will likely require some type of STR care. CM to follow.
[2024-12-15 14:04] LABS: Glucose, Whole Blood 172 mg/dL (60-115)
[2024-12-15 16:12] LABS: Glucose, Whole Blood 170 mg/dL (60-115)
[2024-12-15 17:56] LABS: Glucose, Whole Blood 168 mg/dL (60-115)
--- NOTE | 2024-12-15 19:04 | PC.NURSE ---
Addendum entered by Ruth Baez RN 12/17/24 15:41: Late entry from 12/15/24 Original Note: Assumed care at 0700 - patient remains intubated and sedated. Abdominal dressing changed - 02/24 jose luis intact, dehiscence noted at one staple - Dr Perales, general surgery and ends breakage clerk notified via tigertext w/ photo. Xeroform, gauze and ABD pad placed per Dr Perales. Patient passing gas through ostomy; 1729 moderate brown soft bowel movement located in ostomy - Dr Perales and general surgery notified. Levophed titrated off. Unable to titrate down propofol gtt d/t vent synchrony - notified. Patient moving all extremities, reaching for ETT - restraints applied. T max 102.4 - MD notified - cooling blanket applied - temp down to 98.8. Handoff given to Aaron CASTRO.
[2024-12-15] MEDS: Insulin Regular/NS 100 UNIT/100 ML PLAST..BAG 7 UNIT IVCONT (19:22)
[2024-12-15 20:14] LABS: Glucose, Whole Blood 158 mg/dL (60-115)
[2024-12-15 20:31] LABS: Albumin Level 3.1 g/dL (3.5-5.0); Anion Gap 14 (12-20); Blood Urea Nitrogen 31 mg/dL (9-16); Calcium 8.2 mg/dL (8.4-10.2); Carbon Dioxide 19 mmol/L (22-29); Chloride 111 mmol/L (96-108); Creatinine Clr Calc Pharmacy 80.9; Estimated Glomerular Filt Rate > 60; Magnesium 2.6 mg/dL (1.6-2.6); Potassium 3.0 mmol/L (3.3-5.1); Sodium 141 mmol/L (135-145)
[2024-12-15] MEDS: Parenteral Nutrition 1,920 ML 80 ML IV (20:42)
[2024-12-15 22:08] LABS: Glucose, Whole Blood 140 mg/dL (60-115)
[2024-12-15] MEDS: Potassium Chloride/H20 40 MEQ/100 ML PIGGYBACK 100 MEQ IV (22:16)
[2024-12-16] VITALS (30 sets, daily range): BP systolic 92–163; BP diastolic 54–96; PULSE 69–106; RESP 15–30; TEMP 34.2–38.5; O2SAT 89–100
--- NOTE | 2024-12-16 | ECG_ITS ---
Test Reason : rhythm Blood Pressure : */* mmHG Vent. Rate : 74 BPM Atrial Rate : 74 BPM P-R Int : 188 ms QRS Dur : 68 ms QT Int : 310 ms P-R-T Axes : 37 60 -44 degrees QTcB Int : 344 ms Normal sinus rhythm T wave abnormality, consider anterior ischemia Abnormal ECG When compared with ECG of 13-Dec-2024 15:18, Questionable change in QRS duration Referred By: Ana Perales Electronically Signed By: CONCHITA LIND MD
[2024-12-16 00:08] LABS: Glucose, Whole Blood 147 mg/dL (60-115)
[2024-12-16] MEDS: Chlorhexidine Gluc Oral Rinse 15 ML MOUTHWASH BUCCAL ×3 (02:00→17:32)
[2024-12-16] MEDS: metroNIDAZOLE/NS 500 MG/100 ML PIGGYBACK 100 MG IV ×3 (02:00→17:31)
[2024-12-16 02:08] LABS: Glucose, Whole Blood 156 mg/dL (60-115)
[2024-12-16] MEDS: Albumin Human 25 % 100 ML IV (02:56)
[2024-12-16 04:04] LABS: Glucose, Whole Blood 150 mg/dL (60-115)
[2024-12-16 04:23] LABS: VBG HCO3 22 mmol/L (22-26); VBG O2 % Saturation 66.0 %
[2024-12-16 05:45] LABS: Hematocrit 22.6 % (42.0-52.0); Hemoglobin 7.1 g/dl (14.0-18.0); Mean Corpuscular HGB Conc 31.4 g/dl (31.0-36.0); Mean Corpuscular Hemoglobin 24.1 pg (27.0-33.0); Mean Corpuscular Volume 76.6 fL (80.0-98.0); NRBC Abs Auto 0.090 X10*3/uL (0.0-0.012); NRBC Pct Auto 0.5 /100WBC (0.0-0.2); Platelet Count 435 X10*3/uL (160-400); Red Blood Count 2.95 X10*6/uL (4.60-5.80); White Blood Count 18.0 X10*3/uL (4.8-10.8)
[2024-12-16 05:50] LABS: INTERNATIONAL NORM RATIO 1.5 (0.9-1.1); Prothrombin Time 16.8 SEC (10.9-12.4)
[2024-12-16 05:59] LABS: Alanine Aminotransferase 6 U/L (0-40); Albumin Level 3.5 g/dL (3.5-5.0); Alkaline Phosphatase 55 U/L (39-117); Anion Gap 14 (12-20); Aspartate Amino Transferase 29 U/L (5-37); Blood Urea Nitrogen 33 mg/dL (9-16); Calcium 8.4 mg/dL (8.4-10.2); Carbon Dioxide 20 mmol/L (22-29); Chloride 111 mmol/L (96-108); Creatinine Clr Calc Pharmacy 76.6; Estimated Glomerular Filt Rate > 60; Magnesium 2.6 mg/dL (1.6-2.6); Potassium 3.2 mmol/L (3.3-5.1); Sodium 142 mmol/L (135-145); Total Protein 5.7 g/dL (6.5-8.0)
[2024-12-16 06:19] LABS: Glucose, Whole Blood 143 mg/dL (60-115)
[2024-12-16 06:34] LABS: Venous Blood Gas Refer to POC result
[2024-12-16 07:38] LABS: Atypical Lymph Absolute Manual 0.5 x10*3/uL; Atypical Lymphs Percent Manual 3 % (0-6); Band Neutrophils Percent 11 % (3-5); Basophils Abs Manual 0.2 X10*3/uL (0.0-0.2); Basophils Percent Manual 1 % (0-2); Eosinophils Absolute Manual 1.1 X10*3/uL (0.0-0.4); Eosinophils Percent Manual 6 % (0-4); Lymphocytes Absolute Manual 1.8 X10*3/uL (1.2-4.9); Lymphocytes Percent Manual 10 % (20-40); Metamyelocytes Absolute 0.7 X10*3/uL; Metamyelocytes Percent 4 %; Monocytes Absolute Manual 1.1 X10*3/uL (0.1-1.2); Monocytes Percent Manual 6 % (2-11); Myelocytes Absolute 0.4 X10*/uL; Myelocytes Percent 2 %; Neutrophils Absolute Manual 12.1 X10*3/uL (2.0-8.3); Neutrophils Percent Manual 56 % (45-73); Promyelocytes Absolute 0.2 X10*3/uL; Promyelocytes Percent 1 %
[2024-12-16 07:46] LABS: Hypochromasia 1+ (5-14) /OIF; Large Platelet PRESENT; Microcytosis 1+ (5-14) /OIF; Polychromasia 1+ (0-2) /OIF; RBC Morphology NOTED; Target Cells 1+ (5-14) /OIF
[2024-12-16 07:47] LABS: Glucose, Whole Blood 161 mg/dL (60-115)
--- NOTE | 2024-12-16 08:06 | PM.PNGS ---
Subjective Subjective Date of Service: 12/16/24 <Amy Alaniz PA-C - Last Filed: 12/16/24 08:08> 12/16/24 <Bam Collazo MD - Last Filed: 12/16/24 08:44> Interval history: Now off pressors. <JYOTI Madrigal Last Filed: 12/16/24 08:08> Physical Exam Vital Signs: Vital Signs: Last Vital Signs Temp 97.3 F 12/16/24 07:00 Pulse 69 12/16/24 07:00 Resp 15 12/16/24 07:00 BP 130/73 12/16/24 07:00 Pulse Ox 99 12/16/24 07:00 O2 Del Method Mechanical Ventil ation 12/16/24 07:00 FiO2 30 12/16/24 07:00 BMI result Body Mass Index 32.0 <JYOTI Madrigal Last Filed: 12/16/24 08:08> Resp: Other: intubated on vent <JYOTI Madrigal Last Filed: 12/16/24 08:08> GI: Other: incision loosely closed, thin ceballos drainage from inferior aspect, xeroform packing in place LEÓN serous ostomy now with stool output abd mildly distended, soft <JYOTI Madrigal Last Filed: 12/16/24 08:08> Objective Data Active Medications Chlorhexidine Gluconate (Chlorhexidine Gluc Oral Rinse 15 Ml Mouthwash) 15 ml BUCCAL Q8H [facility] Last Admin: 12/16/24 02:00 Dose: 15 ml Documented By: AMMON Dextrose (Dextrose 50 % 25 Gm/50 Ml Syringe) 25 gm IVPUSH Q15M PRN; Protocol PRN Reason: per Hypoglycemia Standing Ord. Dextrose (Dextrose 50 % 25 Gm/50 Ml Syringe) 25 gm IVPUSH Q15M PRN PRN Reason: per Hypoglycemia Standing Ord. Famotidine (Famotidine/Pf 20 Mg/2 Ml Vial) 20 mg IVPUSH DAILY [facility] Last Admin: 12/15/24 08:22 Dose: 20 mg Documented By: RAYMOND Fentanyl (Fentanyl Citrate/Pf 100 Mcg/2 Ml Vial) 50 mcg IVPUSH Q2H PRN; Protocol PRN Reason: Pain, Severe (Pain Scale 7-10) Last Admin: 12/16/24 04:57 Dose: 50 mcg Documented By: RUBY Glucose (Glucose Gel 15 Gm Gel..Gram.) 15 gm PO Q15M PRN; Protocol PRN Reason: per Hypoglycemia Standing Ord. Heparin Sodium (Porcine) (Heparin Sodium,Porcine 5,000 Unit/Ml Vial) 5,000 unit SUBCUT Q8H [facility] Last Admin: 12/16/24 01:59 Dose: 5,000 unit Documented By: AMMON Hydrocortisone (Hydrocortisone 1 % Cream 28.35 Gm Tube) 1 appl TOPICAL BID [facility]; Protocol Last Admin: 12/15/24 22:00 Dose: 1 appl Documented By: RUBY Propofol (Diprivan) 1,000 mg in 100 mls @ 0 mls/hr IVCONT .Q0M [facility]; Protocol Last Admin: 12/16/24 06:44 Dose: 40 mcg/kg/min, 20.69 mls/hr Documented By: RUBY Norepinephrine Bitartrate (Levophed) 8 mg in 250 mls @ 0 mls/hr IVCONT .Q0M [facility]; Protocol Last Titration: 12/15/24 18:30 Dose: 0 mcg/kg/min, 0 mls/hr Documented By: RAYMOND Insulin Human Regular (Myxredlin) 100 unit in 100 mls @ 0 mls/hr IVCONT .Q0M [facility]; Protocol Last Titration: 12/16/24 06:15 Dose: 5 unit/hr, 5 mls/hr Documented By: RUBY Co-signed By: AMMON Metronidazole (Flagyl) 500 mg in 100 mls @ 100 mls/hr IV Q8H [facility] Last Infusion: 12/16/24 03:17 Dose: Infused Documented By: RUBY Nutrition (Parenteral) (Parenteral Nutrition) 1,920 mls @ 80 mls/hr IV .Q24H [facility]; Protocol Stop: 12/16/24 20:59 Last Admin: 12/15/24 20:42 Dose: 80 mls/hr Documented By: RUBY Caspofungin 50 mg/ Sodium (Chloride) 250 mls @ 250 mls/hr IV Q24H [facility] Last Infusion: 12/15/24 11:19 Dose: Infused Documented By: RAYMOND Insulin Glargine (Insulin Glargine,Hum.Rec.Anlog 100 Unit/Ml 10 Ml Vial) 20 unit SUBCUT DAILY [facility] Last Admin: 12/15/24 08:21 Dose: 20 unit Documented By: RAYMOND Magnesium Hydroxide (Milk Of Magnesia 30 Ml Oral.Susp) 30 ml PO DAILY PRN PRN Reason: Constipation Melatonin (Melatonin 3 Mg Tablet) 6 mg PO BEDTIME PRN PRN Reason: Insomnia Meropenem (Meropenem 1 Gm Vial) 1 gm IVPUSH Q8H [facility] Last Admin: 12/16/24 03:07 Dose: 1 gm Documented By: AMMON Naloxone HCl (Naloxone Hcl 0.4 Mg/Ml Vial) 0.2 mg IVPUSH Q2M PRN PRN Reason: Excessive sedation or RR < 8 Pharmacy Consult (Consult Rx Parenteral Nutrition Ordering) 1 each MISCELLANE DAILY PRN PRN Reason: Consult order Sodium Chloride (0.9 % Sodium Chloride Flush 3 Ml Syringe) 3 ml IVFLUSH QSHIFT [facility] Last Admin: 12/16/24 00:00 Dose: 3 ml Documented By: RUBY <Amy Alaniz PA-C - Last Filed: 12/16/24 08:08> Labs CBC & Chem 7: 12/16/24 04:16 12/16/24 04:16 <Amy Alaniz PA-C - Last Filed: 12/16/24 08:08> Labs: Laboratory Results - last 24 hr 12/15/24 12/15/24 12/15/24 08:08 10:06 11:45 MCV MCH MCHC RDW Plt Count MPV Immature Gran % (Auto) Neut % (Auto) Lymph % (Auto) [place] % (Auto) Eos % (Auto) Baso % (Auto) Lymph # (Auto) [place] # (Auto) Eos # (Auto) Baso # (Auto) Abs Immat Gran (auto) Absolute Neuts (auto) Absolute Nucleated RBC Nucleated RBC % (auto) Neutrophils % (Manual) Band Neutrophils % Lymphocytes % (Manual) Atypical Lymphs % (Man) Monocytes % (Manual) Eosinophils % (Manual) Basophils % (Manual) Metamyelocytes % Myelocytes % Promyelocytes % Abs Neuts (Manual) Lymphocytes # (Manual) Atyp Lymphs # (Manual) Monocytes # (Manual) Eosinophils # (Manual) Basophils # (Manual) Metamyelocytes # Myelocytes # Promyelocytes # Nucleated RBCs Platelet Estimate Large Platelets Plt Morphology Comment RBC Morphology Polychromasia Hypochromasia Microcytosis Target Cells PT INR VBG pH VBG pCO2 VBG pO2 VBG HCO3 VBG O2 Saturation VBG Base Excess Anion Gap Estim Creat Clear Calc Estimated GFR POC Glucose 179 H 188 H 173 H Random Glucose Calcium Phosphorus Magnesium Total Bilirubin AST ALT Alkaline Phosphatase Total Protein Albumin 12/15/24 12/15/24 12/15/24 14:00 16:09 17:52 MCV MCH MCHC RDW Plt Count MPV Immature Gran % (Auto) Neut % (Auto) Lymph % (Auto) [place] % (Auto) Eos % (Auto) Baso % (Auto) Lymph # (Auto) [place] # (Auto) Eos # (Auto) Baso # (Auto) Abs Immat Gran (auto) Absolute Neuts (auto) Absolute Nucleated RBC Nucleated RBC % (auto) Neutrophils % (Manual) Band Neutrophils % Lymphocytes % (Manual) Atypical Lymphs % (Man) Monocytes % (Manual) Eosinophils % (Manual) Basophils % (Manual) Metamyelocytes % Myelocytes % Promyelocytes % Abs Neuts (Manual) Lymphocytes # (Manual) Atyp Lymphs # (Manual) Monocytes # (Manual) Eosinophils # (Manual) Basophils # (Manual) Metamyelocytes # Myelocytes # Promyelocytes # Nucleated RBCs Platelet Estimate Large Platelets Plt Morphology Comment RBC Morphology Polychromasia Hypochromasia Microcytosis Target Cells PT INR VBG pH VBG pCO2 VBG pO2 VBG HCO3 VBG O2 Saturation VBG Base Excess Anion Gap Estim Creat Clear Calc Estimated GFR POC Glucose 172 H 170 H 168 H Random Glucose Calcium Phosphorus Magnesium Total Bilirubin AST ALT Alkaline Phosphatase Total Protein Albumin 12/15/24 12/15/24 12/15/24 20:06 20:09 22:01 MCV MCH MCHC RDW Plt Count MPV Immature Gran % (Auto) Neut % (Auto) Lymph % (Auto) [place] % (Auto) Eos % (Auto) Baso % (Auto) Lymph # (Auto) [place] # (Auto) Eos # (Auto) Baso # (Auto) Abs Immat Gran (auto) Absolute Neuts (auto) Absolute Nucleated RBC Nucleated RBC % (auto) Neutrophils % (Manual) Band Neutrophils % Lymphocytes % (Manual) Atypical Lymphs % (Man) Monocytes % (Manual) Eosinophils % (Manual) Basophils % (Manual) Metamyelocytes % Myelocytes % Promyelocytes % Abs Neuts (Manual) Lymphocytes # (Manual) Atyp Lymphs # (Manual) Monocytes # (Manual) Eosinophils # (Manual) Basophils # (Manual) Metamyelocytes # Myelocytes # Promyelocytes # Nucleated RBCs Platelet Estimate Large Platelets Plt Morphology Comment RBC Morphology Polychromasia Hypochromasia Microcytosis Target Cells PT INR VBG pH VBG pCO2 VBG pO2 VBG HCO3 VBG O2 Saturation VBG Base Excess Anion Gap 14 Estim Creat Clear Calc 80.9 Estimated GFR > 60 POC Glucose 158 H 140 H Random Glucose 175 H Calcium 8.2 L Phosphorus 3.4 Magnesium 2.6 Total Bilirubin AST ALT Alkaline Phosphatase Total Protein Albumin 3.1 L 12/15/24 12/16/24 12/16/24 23:57 02:04 03:57 MCV MCH MCHC RDW Plt Count MPV Immature Gran % (Auto) Neut % (Auto) Lymph % (Auto) [place] % (Auto) Eos % (Auto) Baso % (Auto) Lymph # (Auto) [place] # (Auto) Eos # (Auto) Baso # (Auto) Abs Immat Gran (auto) Absolute Neuts (auto) Absolute Nucleated RBC Nucleated RBC % (auto) Neutrophils % (Manual) Band Neutrophils % Lymphocytes % (Manual) Atypical Lymphs % (Man) Monocytes % (Manual) Eosinophils % (Manual) Basophils % (Manual) Metamyelocytes % Myelocytes % Promyelocytes % Abs Neuts (Manual) Lymphocytes # (Manual) Atyp Lymphs # (Manual) Monocytes # (Manual) Eosinophils # (Manual) Basophils # (Manual) Metamyelocytes # Myelocytes # Promyelocytes # Nucleated RBCs Platelet Estimate Large Platelets Plt Morphology Comment RBC Morphology Polychromasia Hypochromasia Microcytosis Target Cells PT INR VBG pH VBG pCO2 VBG pO2 VBG HCO3 VBG O2 Saturation VBG Base Excess Anion Gap Estim Creat Clear Calc Estimated GFR POC Glucose 147 H 156 H 150 H Random Glucose Calcium Phosphorus Magnesium Total Bilirubin AST ALT Alkaline Phosphatase Total Protein Albumin 12/16/24 12/16/24 12/16/24 04:16 04:18 06:15 MCV 76.6 L MCH 24.1 L MCHC 31.4 RDW 20.5 H Plt Count 435 H MPV 11.6 Immature Gran % (Auto) Cancelled Neut % (Auto) Cancelled Lymph % (Auto) Cancelled [place] % (Auto) Cancelled Eos % (Auto) Cancelled Baso % (Auto) Cancelled Lymph # (Auto) Cancelled [place] # (Auto) Cancelled Eos # (Auto) Cancelled Baso # (Auto) Cancelled Abs Immat Gran (auto) Cancelled Absolute Neuts (auto) Cancelled Absolute Nucleated RBC 0.090 H Nucleated RBC % (auto) 0.5 H Neutrophils % (Manual) 56 Band Neutrophils % 11 H Lymphocytes % (Manual) 10 L Atypical Lymphs % (Man) 3 Monocytes % (Manual) 6 Eosinophils % (Manual) 6 H Basophils % (Manual) 1 Metamyelocytes % 4 Myelocytes % 2 Promyelocytes % 1 Abs Neuts (Manual) 12.1 H Lymphocytes # (Manual) 1.8 Atyp Lymphs # (Manual) 0.5 Monocytes # (Manual) 1.1 Eosinophils # (Manual) 1.1 H Basophils # (Manual) 0.2 Metamyelocytes # 0.7 Myelocytes # 0.4 Promyelocytes # 0.2 Nucleated RBCs 1 H Platelet Estimate NORMAL Large Platelets PRESENT Plt Morphology Comment NORMAL RBC Morphology NOTED Polychromasia 1+ (0-2) Hypochromasia 1+ (5-14) Microcytosis 1+ (5-14) Target Cells 1+ (5-14) PT 16.8 H INR 1.5 H VBG pH 7.49 H VBG pCO2 29 VBG pO2 44 VBG HCO3 22 VBG O2 Saturation 66.0 VBG Base Excess -0.1 Anion Gap 14 Estim Creat Clear Calc 76.6 Estimated GFR > 60 POC Glucose 143 H Random Glucose 157 H Calcium 8.4 Phosphorus 3.2 Magnesium 2.6 Total Bilirubin 0.5 AST 29 ALT 6 Alkaline Phosphatase 55 Total Protein 5.7 L Albumin 3.5 12/16/24 07:44 MCV MCH MCHC RDW Plt Count MPV Immature Gran % (Auto) Neut % (Auto) Lymph % (Auto) [place] % (Auto) Eos % (Auto) Baso % (Auto) Lymph # (Auto) [place] # (Auto) Eos # (Auto) Baso # (Auto) Abs Immat Gran (auto) Absolute Neuts (auto) Absolute Nucleated RBC Nucleated RBC % (auto) Neutrophils % (Manual) Band Neutrophils % Lymphocytes % (Manual) Atypical Lymphs % (Man) Monocytes % (Manual) Eosinophils % (Manual) Basophils % (Manual) Metamyelocytes % Myelocytes % Promyelocytes % Abs Neuts (Manual) Lymphocytes # (Manual) Atyp Lymphs # (Manual) Monocytes # (Manual) Eosinophils # (Manual) Basophils # (Manual) Metamyelocytes # Myelocytes # Promyelocytes # Nucleated RBCs Platelet Estimate Large Platelets Plt Morphology Comment RBC Morphology Polychromasia Hypochromasia Microcytosis Target Cells PT INR VBG pH VBG pCO2 VBG pO2 VBG HCO3 VBG O2 Saturation VBG Base Excess Anion Gap Estim Creat Clear Calc Estimated GFR POC Glucose 161 H Random Glucose Calcium Phosphorus Magnesium Total Bilirubin AST ALT Alkaline Phosphatase Total Protein Albumin <Amy Alaniz PA-C - Last Filed: 12/16/24 08:08> Procedures Date of Service Date of Service: 12/16/24 <Amy Alaniz PA-C - Last Filed: 12/16/24 08:08> 12/16/24 <Bam Collazo MD - Last Filed: 12/16/24 08:44> Progress Note: A&P Assessment and plan (1) S/P colostomy: Status: Acute <Amy Alaniz PA-C - Last Filed: 12/16/24 08:08> Assessment and Plan: Remains on the ventilator Off pressors Stoma with good output now LEÓN drain thin seropurulent Abdomen is soft Okay to try to advance feed rate as tolerated IV antibiotics ICU care Seen and examined independently <Bam Collazo MD - Last Filed: 12/16/24 08:44> (2) Perforated viscus: Status: Acute <Amy Alaniz PA-C - Last Filed: 12/16/24 08:08> Assessment and Plan: Status post laparotomy, resection of large perforated tumor, 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 Found to have profound fecal contamination and fecal peritonitis throughout the entire peritoneal cavity. Remains intubated, now off pressors. INcision clean, appreciate wound care input. CT scan Saturday diffuse intraabdominal fluid - LEÓN with diminished output, drain needs to be stripped periodically to prevent clogging and allow for drainage. Stoma now with output, can increase tube feeds as tolerated. Cont IV antimicrobials. Further restorative measures per ICU team. <Amy Alaniz PA-C - Last Filed: 12/16/24 08:08> Time Spent With Patient Time: Total time managing care of this patient today ____ minutes. <Amy Alaniz PA-C - Last Filed: 12/16/24 08:08> Quality Stroke Does the patient have a stroke diagnosis?: No <Amy Alaniz PA-C - Last Filed: 12/16/24 08:08> VTE Prior VTE?: No <Amy Alaniz PA-C - Last Filed: 12/16/24 08:08> VTE Risk Level:: Medical - moderate - high <Amy Alaniz PA-C - Last Filed: 12/16/24 08:08> VTE Device Contraindication: N/A - Device Ordered <Amy Alaniz PA-C - Last Filed: 12/16/24 08:08> VTE Drug Contraindication: N/A - Med Ordered <Amy Alaniz PA-C - Last Filed: 12/16/24 08:08>
--- NOTE | 2024-12-16 08:07 | P.PNCC_ITS ---
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 who was septic in 0 had extensive peritonitis with extensive free fluid also possible C diff infection and all signs of sepsis seemed to be receding at this point the degree of his left shift on [place] [address] he has a stable hemoglobin urine output and renal function are excellent and he has got good function of his colostomy so the ileus is resolving and is going to start to recoup his 3rd space fluid based on that I am going to decrease his TPN and increase his tube feedings and at this point on pressure control he is only on 10 of inspiratory pressure so I am going to stop his sedation and I am going to switch him to pressure support and if tolerated look to extubate Critical Care Time (minutes): 35 Physical Exam 2 Vital Signs: Vital Signs: Last Vital Signs Temp 97.3 F 12/16/24 07:00 Pulse 69 12/16/24 07:00 Resp 15 12/16/24 07:00 BP 130/73 12/16/24 07:00 Pulse Ox 99 12/16/24 07:00 O2 Del Method Mechanical Ventil ation 12/16/24 07:00 FiO2 30 12/16/24 07:00 BMI result Body Mass Index 32.0 Skin is clear no rashes and nonfocal neurologically Cardiac exam no murmurs no gallops and he has converted back to sinus rhythm and I had stopped his amiodarone and digoxin because I was concerned with QT prolongation Abdomen is softer with positive bowel sounds Chest is clear bilaterally Objective Data Labs 12/16/24 04:16 12/16/24 04:16 Labs: Laboratory Results - last 24 hr 12/15/24 12/15/24 12/15/24 08:08 10:06 11:45 WBC RBC Hgb Hct MCV MCH MCHC RDW Plt Count MPV Immature Gran % (Auto) Neut % (Auto) Lymph % (Auto) Daniels % (Auto) Eos % (Auto) Baso % (Auto) Lymph # (Auto) Daniels # (Auto) Eos # (Auto) Baso # (Auto) Abs Immat Gran (auto) Absolute Neuts (auto) Absolute Nucleated RBC Nucleated RBC % (auto) Neutrophils % (Manual) Band Neutrophils % Lymphocytes % (Manual) Atypical Lymphs % (Man) Monocytes % (Manual) Eosinophils % (Manual) Basophils % (Manual) Metamyelocytes % Myelocytes % Promyelocytes % Abs Neuts (Manual) Lymphocytes # (Manual) Atyp Lymphs # (Manual) Monocytes # (Manual) Eosinophils # (Manual) Basophils # (Manual) Metamyelocytes # Myelocytes # Promyelocytes # Nucleated RBCs Platelet Estimate Large Platelets Plt Morphology Comment RBC Morphology Polychromasia Hypochromasia Microcytosis Target Cells PT INR VBG pH VBG pCO2 VBG pO2 VBG HCO3 VBG O2 Saturation VBG Base Excess Sodium Potassium Chloride Carbon Dioxide Anion Gap BUN Creatinine Estim Creat Clear Calc Estimated GFR POC Glucose 179 H 188 H 173 H Random Glucose Calcium Phosphorus Magnesium Total Bilirubin AST ALT Alkaline Phosphatase Total Protein Albumin 12/15/24 12/15/24 12/15/24 14:00 16:09 17:52 WBC RBC Hgb Hct MCV MCH MCHC RDW Plt Count MPV Immature Gran % (Auto) Neut % (Auto) Lymph % (Auto) Daniels % (Auto) Eos % (Auto) Baso % (Auto) Lymph # (Auto) Daniels # (Auto) Eos # (Auto) Baso # (Auto) Abs Immat Gran (auto) Absolute Neuts (auto) Absolute Nucleated RBC Nucleated RBC % (auto) Neutrophils % (Manual) Band Neutrophils % Lymphocytes % (Manual) Atypical Lymphs % (Man) Monocytes % (Manual) Eosinophils % (Manual) Basophils % (Manual) Metamyelocytes % Myelocytes % Promyelocytes % Abs Neuts (Manual) Lymphocytes # (Manual) Atyp Lymphs # (Manual) Monocytes # (Manual) Eosinophils # (Manual) Basophils # (Manual) Metamyelocytes # Myelocytes # Promyelocytes # Nucleated RBCs Platelet Estimate Large Platelets Plt Morphology Comment RBC Morphology Polychromasia Hypochromasia Microcytosis Target Cells PT INR VBG pH VBG pCO2 VBG pO2 VBG HCO3 VBG O2 Saturation VBG Base Excess Sodium Potassium Chloride Carbon Dioxide Anion Gap BUN Creatinine Estim Creat Clear Calc Estimated GFR POC Glucose 172 H 170 H 168 H Random Glucose Calcium Phosphorus Magnesium Total Bilirubin AST ALT Alkaline Phosphatase Total Protein Albumin 12/15/24 12/15/24 12/15/24 20:06 20:09 22:01 WBC RBC Hgb Hct MCV MCH MCHC RDW Plt Count MPV Immature Gran % (Auto) Neut % (Auto) Lymph % (Auto) Daniels % (Auto) Eos % (Auto) Baso % (Auto) Lymph # (Auto) Daniels # (Auto) Eos # (Auto) Baso # (Auto) Abs Immat Gran (auto) Absolute Neuts (auto) Absolute Nucleated RBC Nucleated RBC % (auto) Neutrophils % (Manual) Band Neutrophils % Lymphocytes % (Manual) Atypical Lymphs % (Man) Monocytes % (Manual) Eosinophils % (Manual) Basophils % (Manual) Metamyelocytes % Myelocytes % Promyelocytes % Abs Neuts (Manual) Lymphocytes # (Manual) Atyp Lymphs # (Manual) Monocytes # (Manual) Eosinophils # (Manual) Basophils # (Manual) Metamyelocytes # Myelocytes # Promyelocytes # Nucleated RBCs Platelet Estimate Large Platelets Plt Morphology Comment RBC Morphology Polychromasia Hypochromasia Microcytosis Target Cells PT INR VBG pH VBG pCO2 VBG pO2 VBG HCO3 VBG O2 Saturation VBG Base Excess Sodium 141 Potassium 3.0 L Chloride 111 H Carbon Dioxide 19 L Anion Gap 14 BUN 31 H Creatinine 1.07 Estim Creat Clear Calc 80.9 Estimated GFR > 60 POC Glucose 158 H 140 H Random Glucose 175 H Calcium 8.2 L Phosphorus 3.4 Magnesium 2.6 Total Bilirubin AST ALT Alkaline Phosphatase Total Protein Albumin 3.1 L 12/15/24 12/16/24 12/16/24 23:57 02:04 03:57 WBC RBC Hgb Hct MCV MCH MCHC RDW Plt Count MPV Immature Gran % (Auto) Neut % (Auto) Lymph % (Auto) Daniels % (Auto) Eos % (Auto) Baso % (Auto) Lymph # (Auto) Daniels # (Auto) Eos # (Auto) Baso # (Auto) Abs Immat Gran (auto) Absolute Neuts (auto) Absolute Nucleated RBC Nucleated RBC % (auto) Neutrophils % (Manual) Band Neutrophils % Lymphocytes % (Manual) Atypical Lymphs % (Man) Monocytes % (Manual) Eosinophils % (Manual) Basophils % (Manual) Metamyelocytes % Myelocytes % Promyelocytes % Abs Neuts (Manual) Lymphocytes # (Manual) Atyp Lymphs # (Manual) Monocytes # (Manual) Eosinophils # (Manual) Basophils # (Manual) Metamyelocytes # Myelocytes # Promyelocytes # Nucleated RBCs Platelet Estimate Large Platelets Plt Morphology Comment RBC Morphology Polychromasia Hypochromasia Microcytosis Target Cells PT INR VBG pH VBG pCO2 VBG pO2 VBG HCO3 VBG O2 Saturation VBG Base Excess Sodium Potassium Chloride Carbon Dioxide Anion Gap BUN Creatinine Estim Creat Clear Calc Estimated GFR POC Glucose 147 H 156 H 150 H Random Glucose Calcium Phosphorus Magnesium Total Bilirubin AST ALT Alkaline Phosphatase Total Protein Albumin 12/16/24 12/16/24 12/16/24 04:16 04:18 06:15 WBC 18.0 H RBC 2.95 L Hgb 7.1 L Hct 22.6 L MCV 76.6 L MCH 24.1 L MCHC 31.4 RDW 20.5 H Plt Count 435 H MPV 11.6 Immature Gran % (Auto) Cancelled Neut % (Auto) Cancelled Lymph % (Auto) Cancelled Daniels % (Auto) Cancelled Eos % (Auto) Cancelled Baso % (Auto) Cancelled Lymph # (Auto) Cancelled Daniels # (Auto) Cancelled Eos # (Auto) Cancelled Baso # (Auto) Cancelled Abs Immat Gran (auto) Cancelled Absolute Neuts (auto) Cancelled Absolute Nucleated RBC 0.090 H Nucleated RBC % (auto) 0.5 H Neutrophils % (Manual) 56 Band Neutrophils % 11 H Lymphocytes % (Manual) 10 L Atypical Lymphs % (Man) 3 Monocytes % (Manual) 6 Eosinophils % (Manual) 6 H Basophils % (Manual) 1 Metamyelocytes % 4 Myelocytes % 2 Promyelocytes % 1 Abs Neuts (Manual) 12.1 H Lymphocytes # (Manual) 1.8 Atyp Lymphs # (Manual) 0.5 Monocytes # (Manual) 1.1 Eosinophils # (Manual) 1.1 H Basophils # (Manual) 0.2 Metamyelocytes # 0.7 Myelocytes # 0.4 Promyelocytes # 0.2 Nucleated RBCs 1 H Platelet Estimate NORMAL Large Platelets PRESENT Plt Morphology Comment NORMAL RBC Morphology NOTED Polychromasia 1+ (0-2) Hypochromasia 1+ (5-14) Microcytosis 1+ (5-14) Target Cells 1+ (5-14) PT 16.8 H INR 1.5 H VBG pH 7.49 H VBG pCO2 29 VBG pO2 44 VBG HCO3 22 VBG O2 Saturation 66.0 VBG Base Excess -0.1 Sodium 142 Potassium 3.2 L Chloride 111 H Carbon Dioxide 20 L Anion Gap 14 BUN 33 H Creatinine 1.13 Estim Creat Clear Calc 76.6 Estimated GFR > 60 POC Glucose 143 H Random Glucose 157 H Calcium 8.4 Phosphorus 3.2 Magnesium 2.6 Total Bilirubin 0.5 AST 29 ALT 6 Alkaline Phosphatase 55 Total Protein 5.7 L Albumin 3.5 12/16/24 07:44 WBC RBC Hgb Hct MCV MCH MCHC RDW Plt Count MPV Immature Gran % (Auto) Neut % (Auto) Lymph % (Auto) Daniels % (Auto) Eos % (Auto) Baso % (Auto) Lymph # (Auto) Daniels # (Auto) Eos # (Auto) Baso # (Auto) Abs Immat Gran (auto) Absolute Neuts (auto) Absolute Nucleated RBC Nucleated RBC % (auto) Neutrophils % (Manual) Band Neutrophils % Lymphocytes % (Manual) Atypical Lymphs % (Man) Monocytes % (Manual) Eosinophils % (Manual) Basophils % (Manual) Metamyelocytes % Myelocytes % Promyelocytes % Abs Neuts (Manual) Lymphocytes # (Manual) Atyp Lymphs # (Manual) Monocytes # (Manual) Eosinophils # (Manual) Basophils # (Manual) Metamyelocytes # Myelocytes # Promyelocytes # Nucleated RBCs Platelet Estimate Large Platelets Plt Morphology Comment RBC Morphology Polychromasia Hypochromasia Microcytosis Target Cells PT INR VBG pH VBG pCO2 VBG pO2 VBG HCO3 VBG O2 Saturation VBG Base Excess Sodium Potassium Chloride Carbon Dioxide Anion Gap BUN Creatinine Estim Creat Clear Calc Estimated GFR POC Glucose 161 H Random Glucose Calcium Phosphorus Magnesium Total Bilirubin AST ALT Alkaline Phosphatase Total Protein Albumin Microbiology Microbiology Results: Microbiology 12/09/24 08:54 Gastric Fluid Gram Stain - Final 12/09/24 08:54 Gastric Fluid Anaerobic Culture - Final 12/09/24 08:54 Gastric Fluid Body Fluid Culture - Final Klebsiella pneumoniae Flavia species Viridans streptococcus group 12/05/24 20:15 Peritoneal Fluid Gram Stain - Final 12/05/24 20:15 Peritoneal Fluid Routine Culture - Final Klebsiella pneumoniae Escherichia coli Bacillus species Pseudomonas species 12/05/24 20:15 Peritoneal Fluid Anaerobic Culture - Final 12/05/24 16:52 Blood - Venous Blood Culture - Final Escherichia coli Bacteroides fragilis group 12/05/24 16:52 Blood - Venous Blood Culture - Final Escherichia coli Bacteroides fragilis group Progress Note: A&P Assessment and plan (1) Atrial fibrillation with tachycardic ventricular rate: Status: Acute (2) Acute diverticulitis: Status: Acute (3) Colonic mass: Status: Acute (4) Diverticulitis of colon with perforation: Status: Acute (5) S/P colostomy: Status: Acute (6) Status post laparoscopic-assisted sigmoidectomy: Status: Acute (7) Perforated viscus: Status: Acute (8) Peritonitis: Status: Acute (9) Anemia: Status: Acute (10) Colon cancer: Status: Acute (11) E coli bacteremia: Status: Acute (12) Rotator cuff tear, right: Status: Acute (13) Right shoulder pain: Status: Acute (14) Acute hypoxemic respiratory failure: Status: Acute Plan So he is status post perforated bowel with diverting colostomy that is now functioning therefore resolving ileus resolving renal insufficiency conversion back to normal sinus rhythm from AFib with some residual ST-T changes and QT prolongation which is related to the amiodarone that should subside on its own without complication there is no ectopy and at this point he is utilizing very little inspiratory pressure with excellent tidal volume and less than 10 L minute ventilatory requirement so I am going to stop sedation and try pressure support and if successful extubate Quality Stroke Does the patient have a stroke diagnosis?: No VTE Prior VTE?: No VTE Risk Level:: Medical - moderate - high VTE Device Contraindication: N/A - Device Ordered VTE Drug Contraindication: N/A - Med Ordered
[2024-12-16] MEDS: Potassium Chloride Packet 20 MEQ PACKET 40 MEQ PO (09:35)
[2024-12-16] MEDS: Insulin Glargine,Hum.rec.anlog 100 UNIT/ML 10 ML VIAL 20 UNIT SUBCUT (09:35)
[2024-12-16] MEDS: 0.9 % Sodium Chloride Flush 3 ML SYRINGE IVFLUSH ×3 (09:36→16:07)
[2024-12-16] MEDS: Hydrocortisone 1 % Cream 28.35 GM TUBE 1 APPL TOPICAL ×2 (09:36→22:00)
--- NOTE | 2024-12-16 09:44 | MHC.CLN ---
F/U PT REMAINS INTUBATED REVIEWED LABS DISCUSSED WITH PHARMACY PER MD DECREASE TPN TO 60ML/HR TO PROVIDE 1022KCALS, 216G DEXTROSE, 72G PROTEIN HOLD LIPIDS REPLETE LYTES NEEDED TF CURRENTLY RUNNING JEVITY 1.0 AT 70ML/HR AND WILL OVER EXCEED KCAL/PROTEIN NEEDS RECOMMEND JEVITY 1.O AT 45ML/HR TO PROVIDE 1145KCALS (2167 TOTAL KCALS WITH TPN; 30KCALS/KG BASED ON CMW), 48G PROTEIN (120G PROTEIN TOTAL WITH TPN; 1.6G/KG), 902ML FREE WATER FROM FORMULA MONITOR TOLERANCE AND LYTES
[2024-12-16 10:10] LABS: Glucose, Whole Blood 175 mg/dL (60-115)
[2024-12-16] MEDS: Parenteral Nutrition 1,920 ML 60 ML IV (10:15)
[2024-12-16 12:09] LABS: Glucose, Whole Blood 170 mg/dL (60-115)
[2024-12-16] MEDS: Insulin Regular/NS 100 UNIT/100 ML PLAST..BAG IVCONT (14:20)
[2024-12-16 14:23] LABS: Glucose, Whole Blood 158 mg/dL (60-115)
--- NOTE | 2024-12-16 14:36 | MHC.CM.PN ---
PT REMAINS IN ICU ON VENTILATORY SUPPORT. CM WILL CONTINUE TO FOLLOW FOR DC PLAN.
--- NOTE | 2024-12-16 15:36 | PC.NURSE ---
Assumed care @ 0700? Neuro/Resp: Drowsy s/p sedation vacation, extubated approx. 1200. Now on HFNC, SP02 low 90s. Cardiac: Sinus rhythm/ tachycardia on tele. GI: LBM 7/2, +bowel sounds, Colostomy functioning, colostomy bag changed, NGT in place to left nare, tolerating tube feed without signs of intolerance. On insulin gtt, POC Q 2HR per provider.? : Sanchez in place, patent /draining. Skin: ?Impaired skin integrity - see skin assessment (repositioning maintained)? Infectious: IV antibiotics? Lines: peripheral IVs.
--- NOTE | 2024-12-16 15:43 | PC.NURSE ---
Assumed care @ 0700? Drowsy s/p sedation vacation, extubated approx. 1200. Now on HFNC, SP02 low 90s. Cardiac: Sinus rhythm/ tachycardia on tele. GI: LBM 7/2, +bowel sounds, Colostomy functioning, colostomy bag changed, NGT in place to left nare, tolerating tube feed without signs of intolerance. On insulin gt per MAR, POC Q 2HR per provider.? : Sanchez in place, patent /draining. Skin: ?Impaired skin integrity - see skin assessment (repositioning maintained)? Infectious: IV antibiotics? Lines: access Port to right chest,? peripheral IVs.
[2024-12-16 16:16] LABS: Glucose, Whole Blood 151 mg/dL (60-115)
[2024-12-16 18:27] LABS: Glucose, Whole Blood 151 mg/dL (60-115)
--- NOTE | 2024-12-16 18:30 | HO.WOUND ---
Wound Consult: Initial 54 yr old?[place] [facility] - See progress notes and H&P for detailed history.? Wound consult placed for sacral area, Abdomen and Occiput.? Patient was recently extubated today but remains in ICU level of care. Patient remains critically ill with a complex hospital admission - see provider notes for details of admission. ? Sacrum Etiology: ?Deep tissue Injury ? Wound Bed: epidermal layer lifting - dark nonblanchable tissue Drainage / Odor: none noted at this time Edges: ? irregular Priyanka wound: ?dark red pink tissue No Induration, Fluctuance or Warmth noted Goals of Treatment: ? off load pressure and Triad Post clipping Occiput Etiology: Deep Tissue injury ? Wound Bed: moist epidermal lifting dark purple nonblanchable tissue Drainage / Odor: scant serosang noted Edges: ? irregular Priyanka wound: moist intact tissue No Induration, Fluctuance or Warmth noted Goals of Treatment: ? difficult to dress - would recommend absorptive dressing to pull moisture away from patient scalp as he has significant perspiration at this time. Midline Etiology: Surgical Site - Dehiscence ?? Wound Bed: Moist tissue observed - discussed with provider Dr. Perales and DUTCH Madrigal for general surgery service team - the wound was note probed by this development writer Drainage / Odor: moderate ceballos drainage noted on dressing when assessed - xeroform was in place and appeared to be donating moisture to the wound and the area remains with excess moisture Edges: not approximated Priyanka wound: ? intact no erythema noted at this time Goals of Treatment: ? Discussed with PA and she reports comfort in wound packing Dr. Perales would prefer Iodoform packing strip. will place topical order for packing strip to be changed daily. Recommendations: 1. Turn and Reposition every 2 hours and as needed for patient comfort.? Use pillows or wedges to support off loading positions. 2. Off Load all bony prominences with use of pillows and heel boots if needed.? Apply Preventative foams where needed. ? 3. Monitor for incontinence and moisture control, use barrier creams when needed for prevention and treatment. 4. Provide adequate and supplemental nutrition.? 5. Continue low air loss mattress. 6. When applicable maintain blood glucose levels per Providers order. Occiput - Off Load Pressure with Q2 hr turns and use of Mizuho pillow - Cleanse with PH balance spray or wipes, pat dry. ?Apply thin layer of Triad to wound bed - only pat and dab no scrub and rub when soiling occurs. Reapply thin layer twice a day. Sacrum - Off Load Pressure with Q2 hr turns and use of pillows - Cleanse with PH balance spray or wipes, pat dry. ?Apply thin layer of Triad to wound bed. Do not remove all of paste between applications as this may cause further skin damage.? Cover with foam dressing to aid in off loading and protection from friction. Change every 3 days and PRN. Midline - Gently cleanse with NS moist gauze, lightly pack midline with Iodoform packing strip be sure to leave wick for easy removal and cover with dry gauze and ABD pad. Change Daily. Re-consult wound care Nurse for wound deterioration or wound changes.
[2024-12-16 20:16] LABS: Glucose, Whole Blood 165 mg/dL (60-115)
[2024-12-16 20:49] LABS: Albumin Level 3.5 g/dL (3.5-5.0); Anion Gap 13 (12-20); Blood Urea Nitrogen 31 mg/dL (9-16); Calcium 8.6 mg/dL (8.4-10.2); Carbon Dioxide 20 mmol/L (22-29); Chloride 114 mmol/L (96-108); Creatinine Clr Calc Pharmacy 85.7; Estimated Glomerular Filt Rate > 60; Magnesium 2.6 mg/dL (1.6-2.6); Potassium 3.3 mmol/L (3.3-5.1); Sodium 144 mmol/L (135-145)
[2024-12-16 22:08] LABS: Glucose, Whole Blood 141 mg/dL (60-115)
[2024-12-16] MEDS: Parenteral Nutrition 1,440 ML 60 ML IV (22:12)
[2024-12-16] MEDS: Potassium Phosphate/NS 15 MMOL/250 ML PLAST..BAG 62.5 MMOL IV (22:19)
[2024-12-16] MEDS: Potassium Chloride/H20 10 MEQ/100 ML PIGGYBACK 100 MEQ IV ×2 (22:19→23:38)
[2024-12-16] MEDS: Insulin Glargine,Hum.rec.anlog 100 UNIT/ML 10 ML VIAL 15 UNIT SUBCUT (23:23)
[2024-12-17] VITALS (32 sets, daily range): BP systolic 129–176; BP diastolic 73–90; PULSE 76–96; RESP 12–26; TEMP 34.8–37.4; O2SAT 92–98; BMI 30.6
[2024-12-17 00:42] LABS: Glucose, Whole Blood 128 mg/dL (60-115)
[2024-12-17] MEDS: Chlorhexidine Gluc Oral Rinse 15 ML MOUTHWASH BUCCAL ×2 (02:41→09:39)
[2024-12-17] MEDS: metroNIDAZOLE/NS 500 MG/100 ML PIGGYBACK 100 MG IV ×3 (02:45→18:24)
[2024-12-17 04:26] LABS: VBG HCO3 21 mmol/L (22-26); VBG O2 % Saturation 92.0 %
[2024-12-17 05:10] LABS: Hematocrit 23.6 % (42.0-52.0); Hemoglobin 7.3 g/dl (14.0-18.0); Mean Corpuscular HGB Conc 30.9 g/dl (31.0-36.0); Mean Corpuscular Hemoglobin 23.9 pg (27.0-33.0); Mean Corpuscular Volume 77.1 fL (80.0-98.0); NRBC Abs Auto 0.100 X10*3/uL (0.0-0.012); NRBC Pct Auto 0.5 /100WBC (0.0-0.2); Platelet Count 482 X10*3/uL (160-400); Red Blood Count 3.06 X10*6/uL (4.60-5.80); White Blood Count 21.2 X10*3/uL (4.8-10.8)
[2024-12-17 05:33] LABS: Alanine Aminotransferase 6 U/L (0-40); Albumin Level 3.3 g/dL (3.5-5.0); Alkaline Phosphatase 68 U/L (39-117); Anion Gap 12 (12-20); Aspartate Amino Transferase 35 U/L (5-37); Blood Urea Nitrogen 30 mg/dL (9-16); Calcium 8.4 mg/dL (8.4-10.2); Carbon Dioxide 20 mmol/L (22-29); Chloride 115 mmol/L (96-108); Creatinine Clr Calc Pharmacy 89.2; Estimated Glomerular Filt Rate > 60; Magnesium 2.5 mg/dL (1.6-2.6); Potassium 3.3 mmol/L (3.3-5.1); Sodium 144 mmol/L (135-145); Total Protein 5.8 g/dL (6.5-8.0)
[2024-12-17 06:22] LABS: Venous Blood Gas Refer to POC result
[2024-12-17 06:35] LABS: Glucose, Whole Blood 166 mg/dL (60-115)
--- NOTE | 2024-12-17 06:42 | P.PNCC_ITS ---
Subjective Subjective Date of Service: 12/17/24 Interval History: 54-year-old male status post perforated large bowel with extensive stool soilage in the peritoneum but defervescing very well with good LEÓN drain placement and function for local control and responding well to his antibiotic regimen without complication and is 24 hours now extubated but as he awakens he can cough especially on demand and clear secretions but he still has some respiratory effort that is still bear some concern although his respiratory rate at rest is 07/06/2021 Vital signs otherwise very stable Critical Care Time (minutes): 30 Physical Exam 2 Vital Signs: Vital Signs: Last Vital Signs Temp 98.6 F 12/17/24 04:00 Pulse 87 12/17/24 05:00 Resp 24 H 12/17/24 05:00 BP 151/73 H 12/17/24 05:00 Pulse Ox 94 12/17/24 05:00 O2 Del Method High Flow Nasal C annula 12/17/24 05:00 O2 Flow Rate 40 12/17/24 05:00 FiO2 40 12/17/24 05:00 BMI result Body Mass Index 30.6 Skin is good without rash complication warm well perfused with good peripheral pulses Abdomen softening with good bowel sounds good colostomy function He pulled his own NG tube out early this morning and a chest x-ray at that time shows continued improvement no evidence of aspiration just small left pleural effusion Cardiac exam with no gallops no murmurs and good bilateral carotid upstrokes Warm well perfused with good peripheral pulses Lab work indicates a hyperchloremic non-anion gap metabolic acidosis along with mild hypokalemia probably all related to samaritan of bowel function and stool loss with bicarb as well as potassium Objective Data Labs 12/17/24 04:13 12/17/24 04:13 Labs: Laboratory Results - last 24 hr 12/16/24 12/16/24 12/16/24 04:16 07:44 10:05 WBC RBC Hgb Hct MCV MCH MCHC RDW Plt Count MPV Immature Gran % (Auto) Neut % (Auto) Lymph % (Auto) [place] % (Auto) Eos % (Auto) Baso % (Auto) Lymph # (Auto) [place] # (Auto) Eos # (Auto) Baso # (Auto) Abs Immat Gran (auto) Absolute Neuts (auto) Absolute Nucleated RBC Nucleated RBC % (auto) Neutrophils % (Manual) 56 Band Neutrophils % 11 H Lymphocytes % (Manual) 10 L Atypical Lymphs % (Man) 3 Monocytes % (Manual) 6 Eosinophils % (Manual) 6 H Basophils % (Manual) 1 Metamyelocytes % 4 Myelocytes % 2 Promyelocytes % 1 Abs Neuts (Manual) 12.1 H Lymphocytes # (Manual) 1.8 Atyp Lymphs # (Manual) 0.5 Monocytes # (Manual) 1.1 Eosinophils # (Manual) 1.1 H Basophils # (Manual) 0.2 Metamyelocytes # 0.7 Myelocytes # 0.4 Promyelocytes # 0.2 Nucleated RBCs 1 H Platelet Estimate NORMAL Large Platelets PRESENT Plt Morphology Comment NORMAL RBC Morphology NOTED Polychromasia 1+ (0-2) Hypochromasia 1+ (5-14) Microcytosis 1+ (5-14) Target Cells 1+ (5-14) VBG pH VBG pCO2 VBG pO2 VBG HCO3 VBG O2 Saturation VBG Base Excess Sodium Potassium Chloride Carbon Dioxide Anion Gap BUN Creatinine Estim Creat Clear Calc Estimated GFR POC Glucose 161 H 175 H Random Glucose Calcium Phosphorus Magnesium Total Bilirubin AST ALT Alkaline Phosphatase Total Protein Albumin 12/16/24 12/16/24 12/16/24 12:05 14:17 16:01 WBC RBC Hgb Hct MCV MCH MCHC RDW Plt Count MPV Immature Gran % (Auto) Neut % (Auto) Lymph % (Auto) [place] % (Auto) Eos % (Auto) Baso % (Auto) Lymph # (Auto) [place] # (Auto) Eos # (Auto) Baso # (Auto) Abs Immat Gran (auto) Absolute Neuts (auto) Absolute Nucleated RBC Nucleated RBC % (auto) Neutrophils % (Manual) Band Neutrophils % Lymphocytes % (Manual) Atypical Lymphs % (Man) Monocytes % (Manual) Eosinophils % (Manual) Basophils % (Manual) Metamyelocytes % Myelocytes % Promyelocytes % Abs Neuts (Manual) Lymphocytes # (Manual) Atyp Lymphs # (Manual) Monocytes # (Manual) Eosinophils # (Manual) Basophils # (Manual) Metamyelocytes # Myelocytes # Promyelocytes # Nucleated RBCs Platelet Estimate Large Platelets Plt Morphology Comment RBC Morphology Polychromasia Hypochromasia Microcytosis Target Cells VBG pH VBG pCO2 VBG pO2 VBG HCO3 VBG O2 Saturation VBG Base Excess Sodium Potassium Chloride Carbon Dioxide Anion Gap BUN Creatinine Estim Creat Clear Calc Estimated GFR POC Glucose 170 H 158 H 151 H Random Glucose Calcium Phosphorus Magnesium Total Bilirubin AST ALT Alkaline Phosphatase Total Protein Albumin 12/16/24 12/16/24 12/16/24 18:07 20:08 20:12 WBC RBC Hgb Hct MCV MCH MCHC RDW Plt Count MPV Immature Gran % (Auto) Neut % (Auto) Lymph % (Auto) [place] % (Auto) Eos % (Auto) Baso % (Auto) Lymph # (Auto) [place] # (Auto) Eos # (Auto) Baso # (Auto) Abs Immat Gran (auto) Absolute Neuts (auto) Absolute Nucleated RBC Nucleated RBC % (auto) Neutrophils % (Manual) Band Neutrophils % Lymphocytes % (Manual) Atypical Lymphs % (Man) Monocytes % (Manual) Eosinophils % (Manual) Basophils % (Manual) Metamyelocytes % Myelocytes % Promyelocytes % Abs Neuts (Manual) Lymphocytes # (Manual) Atyp Lymphs # (Manual) Monocytes # (Manual) Eosinophils # (Manual) Basophils # (Manual) Metamyelocytes # Myelocytes # Promyelocytes # Nucleated RBCs Platelet Estimate Large Platelets Plt Morphology Comment RBC Morphology Polychromasia Hypochromasia Microcytosis Target Cells VBG pH VBG pCO2 VBG pO2 VBG HCO3 VBG O2 Saturation VBG Base Excess Sodium 144 Potassium 3.3 Chloride 114 H Carbon Dioxide 20 L Anion Gap 13 BUN 31 H Creatinine 1.01 Estim Creat Clear Calc 85.7 Estimated GFR > 60 POC Glucose 151 H 165 H Random Glucose 178 H Calcium 8.6 Phosphorus 2.5 L Magnesium 2.6 Total Bilirubin AST ALT Alkaline Phosphatase Total Protein Albumin 3.5 12/16/24 12/17/24 12/17/24 22:06 00:31 04:13 WBC 21.2 H RBC 3.06 L Hgb 7.3 L Hct 23.6 L MCV 77.1 L MCH 23.9 L MCHC 30.9 L RDW 20.9 H Plt Count 482 H MPV 11.7 Immature Gran % (Auto) Cancelled Neut % (Auto) Cancelled Lymph % (Auto) Cancelled [place] % (Auto) Cancelled Eos % (Auto) Cancelled Baso % (Auto) Cancelled Lymph # (Auto) Cancelled [place] # (Auto) Cancelled Eos # (Auto) Cancelled Baso # (Auto) Cancelled Abs Immat Gran (auto) Cancelled Absolute Neuts (auto) Cancelled Absolute Nucleated RBC 0.100 H Nucleated RBC % (auto) 0.5 H Neutrophils % (Manual) Band Neutrophils % Lymphocytes % (Manual) Atypical Lymphs % (Man) Monocytes % (Manual) Eosinophils % (Manual) Basophils % (Manual) Metamyelocytes % Myelocytes % Promyelocytes % Abs Neuts (Manual) Lymphocytes # (Manual) Atyp Lymphs # (Manual) Monocytes # (Manual) Eosinophils # (Manual) Basophils # (Manual) Metamyelocytes # Myelocytes # Promyelocytes # Nucleated RBCs Platelet Estimate Large Platelets Plt Morphology Comment RBC Morphology Polychromasia Hypochromasia Microcytosis Target Cells VBG pH VBG pCO2 VBG pO2 VBG HCO3 VBG O2 Saturation VBG Base Excess Sodium 144 Potassium 3.3 Chloride 115 H Carbon Dioxide 20 L Anion Gap 12 BUN 30 H Creatinine 0.95 Estim Creat Clear Calc 89.2 Estimated GFR > 60 POC Glucose 141 H 128 H Random Glucose 180 H Calcium 8.4 Phosphorus 3.2 Magnesium 2.5 Total Bilirubin 0.5 AST 35 ALT 6 Alkaline Phosphatase 68 Total Protein 5.8 L Albumin 3.3 L 12/17/24 12/17/24 04:21 06:23 WBC RBC Hgb Hct MCV MCH MCHC RDW Plt Count MPV Immature Gran % (Auto) Neut % (Auto) Lymph % (Auto) [place] % (Auto) Eos % (Auto) Baso % (Auto) Lymph # (Auto) [place] # (Auto) Eos # (Auto) Baso # (Auto) Abs Immat Gran (auto) Absolute Neuts (auto) Absolute Nucleated RBC Nucleated RBC % (auto) Neutrophils % (Manual) Band Neutrophils % Lymphocytes % (Manual) Atypical Lymphs % (Man) Monocytes % (Manual) Eosinophils % (Manual) Basophils % (Manual) Metamyelocytes % Myelocytes % Promyelocytes % Abs Neuts (Manual) Lymphocytes # (Manual) Atyp Lymphs # (Manual) Monocytes # (Manual) Eosinophils # (Manual) Basophils # (Manual) Metamyelocytes # Myelocytes # Promyelocytes # Nucleated RBCs Platelet Estimate Large Platelets Plt Morphology Comment RBC Morphology Polychromasia Hypochromasia Microcytosis Target Cells VBG pH 7.48 H VBG pCO2 28 VBG pO2 69 VBG HCO3 21 L VBG O2 Saturation 92.0 VBG Base Excess -1.6 Sodium Potassium Chloride Carbon Dioxide Anion Gap BUN Creatinine Estim Creat Clear Calc Estimated GFR POC Glucose 166 H Random Glucose Calcium Phosphorus Magnesium Total Bilirubin AST ALT Alkaline Phosphatase Total Protein Albumin Microbiology Microbiology Results: Microbiology 12/09/24 08:54 Gastric Fluid Gram Stain - Final 12/09/24 08:54 Gastric Fluid Anaerobic Culture - Final 12/09/24 08:54 Gastric Fluid Body Fluid Culture - Final Klebsiella pneumoniae Flavia species Viridans streptococcus group 12/05/24 20:15 Peritoneal Fluid Gram Stain - Final 12/05/24 20:15 Peritoneal Fluid Routine Culture - Final Klebsiella pneumoniae Escherichia coli Bacillus species Pseudomonas species 12/05/24 20:15 Peritoneal Fluid Anaerobic Culture - Final 12/05/24 16:52 Blood - Venous Blood Culture - Final Escherichia coli Bacteroides fragilis group 12/05/24 16:52 Blood - Venous Blood Culture - Final Escherichia coli Bacteroides fragilis group Progress Note: A&P Assessment and plan (1) Carcinoma of sigmoid colon: Status: Acute (2) Atrial fibrillation with tachycardic ventricular rate: Status: Acute (3) Prolonged QT interval: Status: Acute (4) Metabolic acidosis with normal anion gap and bicarbonate losses: Status: Acute (5) Hypokalemia due to excessive gastrointestinal loss of potassium: Status: Acute (6) Acute diverticulitis: Status: Acute (7) Colonic mass: Status: Acute (8) Diverticulitis of colon with perforation: Status: Acute (9) S/P colostomy: Status: Acute (10) Status post laparoscopic-assisted sigmoidectomy: Status: Acute (11) Perforated viscus: Status: Acute (12) Peritonitis: Status: Acute (13) Anemia: Status: Acute (14) Colon cancer: Status: Acute (15) E coli bacteremia: Status: Acute (16) Acute hypoxemic respiratory failure: Status: Acute Plan The plan is to do bedside swallow evaluation and start an oral diet if that is okay but for now I am going to replete intravenously both potassium and bicarb Continued observation of pulmonary status Quality Stroke Does the patient have a stroke diagnosis?: No VTE Prior VTE?: No VTE Risk Level:: Medical - moderate - high VTE Device Contraindication: N/A - Device Ordered VTE Drug Contraindication: N/A - Med Ordered
[2024-12-17] MEDS: Potassium Chloride/H20 20 MEQ/100 ML PIGGYBACK 100 MEQ IV (08:00)
[2024-12-17 08:03] LABS: Band Neutrophils Percent 7 % (3-5); Eosinophils Absolute Manual 1.3 X10*3/uL (0.0-0.4); Eosinophils Percent Manual 6 % (0-4); Lymphocytes Absolute Manual 1.3 X10*3/uL (1.2-4.9); Lymphocytes Percent Manual 6 % (20-40); Metamyelocytes Absolute 0.6 X10*3/uL; Metamyelocytes Percent 3 %; Monocytes Absolute Manual 2.1 X10*3/uL (0.1-1.2); Monocytes Percent Manual 10 % (2-11); Myelocytes Absolute 0.8 X10*/uL; Myelocytes Percent 4 %; Neutrophils Absolute Manual 15.1 X10*3/uL (2.0-8.3); Neutrophils Percent Manual 64 % (45-73)
[2024-12-17 08:05] LABS: Hypochromasia 1+ (5-14) /OIF; Large Platelet PRESENT; Polychromasia 1+ (0-2) /OIF; RBC Morphology NOTED; Toxic Granulation PRESENT
[2024-12-17] MEDS: Sodium Bicarbonate 8.4% 50 MEQ in Dextrose 5 % 950 ML 100 MEQ IV ×2 (08:06→18:23)
[2024-12-17] MEDS: Hydrocortisone 1 % Cream 28.35 GM TUBE 1 APPL TOPICAL ×2 (08:21→19:58)
[2024-12-17] MEDS: Insulin Glargine,Hum.rec.anlog 100 UNIT/ML 10 ML VIAL 20 UNIT SUBCUT (08:22)
[2024-12-17] MEDS: 0.9 % Sodium Chloride Flush 3 ML SYRINGE IVFLUSH ×3 (08:23→15:11)
--- NOTE | 2024-12-17 08:30 | P.PNGS_ITS ---
Subjective Subjective Date of Service: 12/17/24 Interval history: Extubated yesterday Tolerating tube feeds Good stoma function Off pressors LEÓN drain with purulent output Physical Exam 2 Vital Signs: Vital Signs: Last Vital Signs Temp 98.6 F 12/17/24 04:00 Pulse 88 12/17/24 07:00 Resp 20 12/17/24 07:00 BP 155/83 H 12/17/24 07:00 Pulse Ox 93 12/17/24 07:00 O2 Del Method High Flow Nasal C annula 12/17/24 07:00 O2 Flow Rate 40 12/17/24 07:00 FiO2 40 12/17/24 07:00 BMI result Body Mass Index 30.6 Const: Other: Appears mildly short of breath Drowsy and weak Resp: Other: Mildly short of breath Cardio: Other: Irregular rhythm GI: Other: Soft, stoma functioning well, LEÓN drain with seropurulent output Wound separation in the inferior aspect of the incision, deep, some tissue granulation, thin purulent material Objective Data Active Medications Chlorhexidine Gluconate (Chlorhexidine Gluc Oral Rinse 15 Ml Mouthwash) 15 ml BUCCAL Q8H FOR[facility], [facility]1983 Last Admin: 12/17/24 02:41 Dose: 15 ml Documented By: RUBY Dextrose (Dextrose 50 % 25 Gm/50 Ml Syringe) 25 gm IVPUSH Q15M PRN; Protocol PRN Reason: per Hypoglycemia Standing Ord. Dextrose (Dextrose 50 % 25 Gm/50 Ml Syringe) 25 gm IVPUSH Q15M PRN PRN Reason: per Hypoglycemia Standing Ord. Famotidine (Famotidine/Pf 20 Mg/2 Ml Vial) 20 mg IVPUSH DAILY [facility], [facility]–1983 Last Admin: 12/17/24 08:22 Dose: 20 mg Documented By: MAIA Fentanyl (Fentanyl Citrate/Pf 100 Mcg/2 Ml Vial) 50 mcg IVPUSH Q2H PRN; Protocol PRN Reason: Pain, Severe (Pain Scale 7-10) Last Admin: 12/17/24 03:20 Dose: 50 mcg Documented By: AMMON Glucose (Glucose Gel 15 Gm Gel..Gram.) 15 gm PO Q15M PRN; Protocol PRN Reason: per Hypoglycemia Standing Ord. Heparin Sodium (Porcine) (Heparin Sodium,Porcine 5,000 Unit/Ml Vial) 5,000 unit SUBCUT Q8H [facility], 1928–1983 Last Admin: 12/17/24 02:41 Dose: 5,000 unit Documented By: RUBY Hydrocortisone (Hydrocortisone 1 % Cream 28.35 Gm Tube) 1 appl TOPICAL BID GEORGINA; Protocol Last Admin: 12/17/24 08:21 Dose: 1 appl Documented By: MAIA Propofol (Diprivan) 1,000 mg in 100 mls @ 0 mls/hr IVCONT .Q0M [facility], [facility]; Protocol On Hold: 12/16/24 08:06 Last Titration: 12/16/24 08:40 Dose: Infused Documented By: MAIA Norepinephrine Bitartrate (Levophed) 8 mg in 250 mls @ 0 mls/hr IVCONT .Q0M GEORGINA; Protocol Last Titration: 12/15/24 18:30 Dose: 0 mcg/kg/min, 0 mls/hr Documented By: RAYMOND Insulin Human Regular (Myxredlin) 100 unit in 100 mls @ 0 mls/hr IVCONT .Q0M [facility], [facility]; Protocol Last Titration: 12/16/24 23:23 Dose: Infused Documented By: AMMON Co-signed By: RUBY Metronidazole (Flagyl) 500 mg in 100 mls @ 100 mls/hr IV Q8H [facility], [facility]1983 Last Infusion: 12/17/24 03:45 Dose: Infused Documented By: RUBY Caspofungin 50 mg/ Sodium (Chloride) 250 mls @ 250 mls/hr IV Q24H [facility], [facility]1983 Last Infusion: 12/16/24 10:54 Dose: Infused Documented By: MAIA Nutrition (Parenteral) (Parenteral Nutrition) 1,440 mls @ 40 mls/hr IV .Q24H [facility], [facility]; Protocol Stop: 12/18/24 04:09 Last Admin: 12/16/24 22:12 Dose: 60 mls/hr Documented By: AMMON Sodium Bicarbonate 50 meq/ (Dextrose) 1,000 mls @ 100 mls/hr IV .Q10H [facility], [facility]–1983 Last Admin: 12/17/24 08:06 Dose: 100 mls/hr Documented By: MAIA Insulin Glargine (Insulin Glargine,Hum.Rec.Anlog 100 Unit/Ml 10 Ml Vial) 20 unit SUBCUT DAILY [facility], [facility]1983 Last Admin: 12/17/24 08:22 Dose: 20 unit Documented By: MAIA Insulin Human Lispro (Insulin Lispro 100 Unit/Ml 3 Ml Vial) 0 unit SUBCUT Q6H [facility], [facility]1983; Protocol Last Admin: 12/17/24 06:34 Dose: 2 unit Documented By: RUBY Magnesium Hydroxide (Milk Of Magnesia 30 Ml Oral.Susp) 30 ml PO DAILY PRN PRN Reason: Constipation Melatonin (Melatonin 3 Mg Tablet) 6 mg PO BEDTIME PRN PRN Reason: Insomnia Meropenem (Meropenem 1 Gm Vial) 1 gm IVPUSH Q8H [facility]1983 Last Admin: 12/17/24 02:44 Dose: 1 gm Documented By: RUBY Naloxone HCl (Naloxone Hcl 0.4 Mg/Ml Vial) 0.2 mg IVPUSH Q2M PRN PRN Reason: Excessive sedation or RR < 8 Pharmacy Consult (Consult Rx Parenteral Nutrition Ordering) 1 each MISCELLANE DAILY PRN PRN Reason: Consult order Sodium Chloride (0.9 % Sodium Chloride Flush 3 Ml Syringe) 3 ml IVFLUSH QSHIFT [facility], [facility] Last Admin: 12/17/24 08:23 Dose: 3 ml Documented By: MAIA Labs 12/17/24 04:13 12/17/24 04:13 Labs: Laboratory Results - last 24 hr 12/16/24 12/16/24 12/16/24 10:05 12:05 14:17 MCV MCH MCHC RDW Plt Count MPV Immature Gran % (Auto) Neut % (Auto) Lymph % (Auto) [place] % (Auto) Eos % (Auto) Baso % (Auto) Lymph # (Auto) [place] # (Auto) Eos # (Auto) Baso # (Auto) Abs Immat Gran (auto) Absolute Neuts (auto) Absolute Nucleated RBC Nucleated RBC % (auto) Neutrophils % (Manual) Band Neutrophils % Lymphocytes % (Manual) Monocytes % (Manual) Eosinophils % (Manual) Metamyelocytes % Myelocytes % Abs Neuts (Manual) Lymphocytes # (Manual) Monocytes # (Manual) Eosinophils # (Manual) Metamyelocytes # Myelocytes # Toxic Granulation Platelet Estimate Large Platelets Plt Morphology Comment RBC Morphology Polychromasia Hypochromasia VBG pH VBG pCO2 VBG pO2 VBG HCO3 VBG O2 Saturation VBG Base Excess Anion Gap Estim Creat Clear Calc Estimated GFR POC Glucose 175 H 170 H 158 H Random Glucose Calcium Phosphorus Magnesium Total Bilirubin AST ALT Alkaline Phosphatase Total Protein Albumin 12/16/24 12/16/24 12/16/24 16:01 18:07 20:08 MCV MCH MCHC RDW Plt Count MPV Immature Gran % (Auto) Neut % (Auto) Lymph % (Auto) [place] % (Auto) Eos % (Auto) Baso % (Auto) Lymph # (Auto) [place] # (Auto) Eos # (Auto) Baso # (Auto) Abs Immat Gran (auto) Absolute Neuts (auto) Absolute Nucleated RBC Nucleated RBC % (auto) Neutrophils % (Manual) Band Neutrophils % Lymphocytes % (Manual) Monocytes % (Manual) Eosinophils % (Manual) Metamyelocytes % Myelocytes % Abs Neuts (Manual) Lymphocytes # (Manual) Monocytes # (Manual) Eosinophils # (Manual) Metamyelocytes # Myelocytes # Toxic Granulation Platelet Estimate Large Platelets Plt Morphology Comment RBC Morphology Polychromasia Hypochromasia VBG pH VBG pCO2 VBG pO2 VBG HCO3 VBG O2 Saturation VBG Base Excess Anion Gap Estim Creat Clear Calc Estimated GFR POC Glucose 151 H 151 H 165 H Random Glucose Calcium Phosphorus Magnesium Total Bilirubin AST ALT Alkaline Phosphatase Total Protein Albumin 12/16/24 12/16/24 12/17/24 20:12 22:06 00:31 MCV MCH MCHC RDW Plt Count MPV Immature Gran % (Auto) Neut % (Auto) Lymph % (Auto) [place] % (Auto) Eos % (Auto) Baso % (Auto) Lymph # (Auto) [place] # (Auto) Eos # (Auto) Baso # (Auto) Abs Immat Gran (auto) Absolute Neuts (auto) Absolute Nucleated RBC Nucleated RBC % (auto) Neutrophils % (Manual) Band Neutrophils % Lymphocytes % (Manual) Monocytes % (Manual) Eosinophils % (Manual) Metamyelocytes % Myelocytes % Abs Neuts (Manual) Lymphocytes # (Manual) Monocytes # (Manual) Eosinophils # (Manual) Metamyelocytes # Myelocytes # Toxic Granulation Platelet Estimate Large Platelets Plt Morphology Comment RBC Morphology Polychromasia Hypochromasia VBG pH VBG pCO2 VBG pO2 VBG HCO3 VBG O2 Saturation VBG Base Excess Anion Gap 13 Estim Creat Clear Calc 85.7 Estimated GFR > 60 POC Glucose 141 H 128 H Random Glucose 178 H Calcium 8.6 Phosphorus 2.5 L Magnesium 2.6 Total Bilirubin AST ALT Alkaline Phosphatase Total Protein Albumin 3.5 12/17/24 12/17/24 12/17/24 04:13 04:21 06:23 MCV 77.1 L MCH 23.9 L MCHC 30.9 L RDW 20.9 H Plt Count 482 H MPV 11.7 Immature Gran % (Auto) Cancelled Neut % (Auto) Cancelled Lymph % (Auto) Cancelled [place] % (Auto) Cancelled Eos % (Auto) Cancelled Baso % (Auto) Cancelled Lymph # (Auto) Cancelled [place] # (Auto) Cancelled Eos # (Auto) Cancelled Baso # (Auto) Cancelled Abs Immat Gran (auto) Cancelled Absolute Neuts (auto) Cancelled Absolute Nucleated RBC 0.100 H Nucleated RBC % (auto) 0.5 H Neutrophils % (Manual) 64 Band Neutrophils % 7 H Lymphocytes % (Manual) 6 L Monocytes % (Manual) 10 Eosinophils % (Manual) 6 H Metamyelocytes % 3 Myelocytes % 4 Abs Neuts (Manual) 15.1 H Lymphocytes # (Manual) 1.3 Monocytes # (Manual) 2.1 H Eosinophils # (Manual) 1.3 H Metamyelocytes # 0.6 Myelocytes # 0.8 Toxic Granulation PRESENT Platelet Estimate SLIGHTLY INCREASED Large Platelets PRESENT Plt Morphology Comment NOTED RBC Morphology NOTED Polychromasia 1+ (0-2) Hypochromasia 1+ (5-14) VBG pH 7.48 H VBG pCO2 28 VBG pO2 69 VBG HCO3 21 L VBG O2 Saturation 92.0 VBG Base Excess -1.6 Anion Gap 12 Estim Creat Clear Calc 89.2 Estimated GFR > 60 POC Glucose 166 H Random Glucose 180 H Calcium 8.4 Phosphorus 3.2 Magnesium 2.5 Total Bilirubin 0.5 AST 35 ALT 6 Alkaline Phosphatase 68 Total Protein 5.8 L Albumin 3.3 L Procedures Date of Service Date of Service: 12/17/24 Progress Note: A&P Assessment and plan (1) Perforated viscus: Status: Acute Assessment and Plan: Extubated yesterday Clinically much improved For swallow study - if good swallow mechanisms, okay to DC G-tube and have oral liquids Continue IV antibiotics Keep LEÓN drain in place ICU care Time Spent With Patient Time: Total time managing care of this patient today ____ minutes. Quality Stroke Does the patient have a stroke diagnosis?: No VTE Prior VTE?: No VTE Risk Level:: Medical - moderate - high VTE Device Contraindication: N/A - Device Ordered VTE Drug Contraindication: N/A - Med Ordered
--- NOTE | 2024-12-17 10:01 | MHC.CLN ---
F/U PT EXTUBATED YESTERDAY TF STOPPED NPO PENDING SWALLOW EVAL FOR DIET ADVANCEMENT REVIEWED LABS DISCUSSED WITH PHARMACY PER MD DECREASE TPN TO 40ML/HR TO PROVIDE [id number], 144G DEXTROSE, 48G PROTEIN HOLD LIPIDS REPLETE LYTES NEEDED FOLLOWING FOR DIET ADVANCEMENT
[2024-12-17 11:52] LABS: Glucose, Whole Blood 200 mg/dL (60-115)
--- NOTE | 2024-12-17 14:17 | MHC.CM.PN ---
Pt extubated and on high flow O2. Continues on multiple antibiotics: Pt will need rehab placement d/t prolonged ICU stay. Referrals made: CM to follow
--- NOTE | 2024-12-17 14:48 | MHC.SL.SWA ---
Speech Pathologist Impression: Risk of Aspiration Due to: Dysphasia Diet Status: Liquid Consistency and Strategies for Safe Swallow: Liquid Intake Recommendation: NPO Liquid Intake Strategies: Solid Food Consistency: Dietary Recommendations: NPO Additional Modifications to Solid Foods: Oral Medication Intake: NPO Please contact the pharmacy regarding appropriate crushable or liquid drug formulations that are available whenever modified delivery is recommended. Compensatory Strategies and Precautions to be Taken for Safe Swallow: Supervision While Eating and Drinking for Safe Swallow: Total Assistance (1:1) Foods to Avoid: Swallowing Recommended Treatments: Recommendation for Speech: Further Testing Needed Comment: Patient s/p extubation 24 hours after long period of intubation (>10 days) and on high flow NC, NG tube present. Patient with weak cough, weak voice, speech is slurred and difficult to understand at times, patient globally weak. On assessment today, presented with poor airway protection due to weak cough, HF NC, poor toleration of thin liquids, pudding/puree consistencies on trials, not appropriate today to resume oral diet. Recommend continue NPO, however allow sips of water/liquid by tsp by RN. PERSONAL CLOTHING LAUNDRY AIDE will re-assess readiness for diet 12/19/23. Frequency/Duration: Date Range for Service Req: Timeline to reassess: Hydrology Professor Clinican/Clinical Fellow: No Supervisory Statement: I have reviewed and agree with the student/clinical fellow's documentation: N/A Speech Language Pathologist: Joann Hull M.A., [facility]-PERSONAL CLOTHING LAUNDRY AIDE
--- NOTE | 2024-12-17 15:20 | PC.NURSE ---
Assumed care @ 0700? Neuro/Resp: Drowsy, extubated 12/16. Now on HFNC, 02sats low 90s. Cardiac: Sinus rhythm? on tele. GI: LBM 12/17, +bowel sounds, Colostomy functioning, NGT in place to left nare, tolerating tube feed without signs of intolerance, POC Q 6HR, Speech therapist following. : Sanchez removed today, void trial completed. External catheter in place.? Skin: ?Impaired skin integrity - see skin assessment (repositioning maintained)? Infectious: IV antibiotics? Lines: access Port to right chest,? peripheral IVs.
[2024-12-17 17:48] LABS: Glucose, Whole Blood 185 mg/dL (60-115)
[2024-12-17] MEDS: Potassium Chloride Packet 20 MEQ PACKET 40 MEQ NG-TUBE (19:55)
[2024-12-17 23:40] LABS: Glucose, Whole Blood 163 mg/dL (60-115)
[2024-12-18] VITALS (30 sets, daily range): BP systolic 117–168; BP diastolic 55–91; PULSE 70–102; RESP 18–83; TEMP 34.7–37.9; O2SAT 91–100; BMI 30.5
[2024-12-18] MEDS: metroNIDAZOLE/NS 500 MG/100 ML PIGGYBACK 100 MG IV ×3 (02:31→17:19)
[2024-12-18] MEDS: Parenteral Nutrition 960 ML 40 ML IV (02:55)
[2024-12-18 04:30] LABS: VBG HCO3 23 mmol/L (22-26); VBG O2 % Saturation 87.0 %
[2024-12-18 04:32] LABS: Venous Blood Gas Refer to POC result
[2024-12-18] MEDS: Sodium Bicarbonate 8.4% 50 MEQ in Dextrose 5 % 950 ML 100 MEQ IV (04:40)
[2024-12-18 04:56] LABS: Hematocrit 24.3 % (42.0-52.0); Hemoglobin 7.5 g/dl (14.0-18.0); Mean Corpuscular HGB Conc 30.9 g/dl (31.0-36.0); Mean Corpuscular Hemoglobin 23.7 pg (27.0-33.0); Mean Corpuscular Volume 76.9 fL (80.0-98.0); NRBC Abs Auto 0.090 X10*3/uL (0.0-0.012); NRBC Pct Auto 0.5 /100WBC (0.0-0.2); Platelet Count 579 X10*3/uL (160-400); Red Blood Count 3.16 X10*6/uL (4.60-5.80); White Blood Count 18.4 X10*3/uL (4.8-10.8)
[2024-12-18 05:19] LABS: Alanine Aminotransferase 10 U/L (0-40); Albumin Level 3.2 g/dL (3.5-5.0); Alkaline Phosphatase 83 U/L (39-117); Anion Gap 14 (12-20); Aspartate Amino Transferase 36 U/L (5-37); Blood Urea Nitrogen 25 mg/dL (9-16); Calcium 8.2 mg/dL (8.4-10.2); Carbon Dioxide 22 mmol/L (22-29); Chloride 114 mmol/L (96-108); Creatinine Clr Calc Pharmacy 114.5; Estimated Glomerular Filt Rate > 60; Magnesium 2.5 mg/dL (1.6-2.6); Potassium 3.3 mmol/L (3.3-5.1); Sodium 147 mmol/L (135-145); Total Protein 6.0 g/dL (6.5-8.0)
[2024-12-18 05:57] LABS: Atypical Lymph Absolute Manual 0.4 x10*3/uL; Atypical Lymphs Percent Manual 2 % (0-6); Band Neutrophils Percent 10 % (3-5); Basophils Abs Manual 0.2 X10*3/uL (0.0-0.2); Basophils Percent Manual 1 % (0-2); Eosinophils Absolute Manual 0.2 X10*3/uL (0.0-0.4); Eosinophils Percent Manual 1 % (0-4); Lymphocytes Absolute Manual 0.4 X10*3/uL (1.2-4.9); Lymphocytes Percent Manual 2 % (20-40); Metamyelocytes Absolute 0.2 X10*3/uL; Metamyelocytes Percent 1 %; Monocytes Absolute Manual 0.2 X10*3/uL (0.1-1.2); Monocytes Percent Manual 1 % (2-11); Myelocytes Absolute 0.4 X10*/uL; Myelocytes Percent 2 %; Neutrophils Absolute Manual 16.0 X10*3/uL (2.0-8.3); Neutrophils Percent Manual 77 % (45-73); Promyelocytes Absolute 0.6 X10*3/uL; Promyelocytes Percent 3 %
[2024-12-18 05:59] LABS: RBC Morphology NOTED; Target Cells 1+ (5-14) /OIF
[2024-12-18 06:00] LABS: Tear Drop Cells 1+ (0-2) /OIF; Toxic Granulation PRESENT; Toxic Vacuolation PRESENT
[2024-12-18] MEDS: 0.9 % Sodium Chloride Flush 3 ML SYRINGE IVFLUSH ×3 (08:02→20:07)
[2024-12-18] MEDS: Potassium Phosphate/NS 15 MMOL/250 ML PLAST..BAG 62.5 MMOL IV (08:09)
[2024-12-18] MEDS: Hydrocortisone 1 % Cream 28.35 GM TUBE 1 APPL TOPICAL ×2 (08:10→20:14)
[2024-12-18] MEDS: Insulin Glargine,Hum.rec.anlog 100 UNIT/ML 10 ML VIAL 20 UNIT SUBCUT (08:11)
--- NOTE | 2024-12-18 08:18 | P.PNGS_ITS ---
Subjective Subjective Date of Service: 12/18/24 Interval history: Patient remains extubated, awake and talking in short sentences, mild shortness of breath Awaiting swallow study this morning. Physical Exam 2 Vital Signs: Vital Signs: Last Vital Signs Temp 97.3 F 12/18/24 03:56 Pulse 87 12/18/24 07:00 Resp 21 H 12/18/24 07:00 BP 141/83 H 12/18/24 07:00 Pulse Ox 97 12/18/24 07:00 O2 Del Method High Flow Nasal C annula 12/18/24 07:00 O2 Flow Rate 40 12/18/24 07:00 FiO2 40 12/18/24 07:48 BMI result Body Mass Index 30.5 Const: General: no acute distress and confusion Nutritional Appearance: a verage body habitus Orientation/consciousness: confusion Resp: Effort & Inspection: normal respiratory effort GI: Other: Wounds are clean and intact. Ostomy functioning well, bag full of stool. Neuro: General: confusion Extrem: General: Yes pedal edema Objective Data Active Medications Dextrose (Dextrose 50 % 25 Gm/50 Ml Syringe) 25 gm IVPUSH Q15M PRN; Protocol PRN Reason: per Hypoglycemia Standing Ord. Dextrose (Dextrose 50 % 25 Gm/50 Ml Syringe) 25 gm IVPUSH Q15M PRN PRN Reason: per Hypoglycemia Standing Ord. Famotidine (Famotidine/Pf 20 Mg/2 Ml Vial) 20 mg IVPUSH DAILY [facility] Last Admin: 12/18/24 08:09 Dose: 20 mg Documented By: SOLISPE Fentanyl (Fentanyl Citrate/Pf 100 Mcg/2 Ml Vial) 50 mcg IVPUSH Q2H PRN; Protocol PRN Reason: Pain, Severe (Pain Scale 7-10) Last Admin: 12/18/24 02:32 Dose: 50 mcg Documented By: PERFECTO Glucose (Glucose Gel 15 Gm Gel..Gram.) 15 gm PO Q15M PRN; Protocol PRN Reason: per Hypoglycemia Standing Ord. Heparin Sodium (Porcine) (Heparin Sodium,Porcine 5,000 Unit/Ml Vial) 5,000 unit SUBCUT Q8H [facility] Last Admin: 12/18/24 02:33 Dose: 5,000 unit Documented By: PERFECTO Hydrocortisone (Hydrocortisone 1 % Cream 28.35 Gm Tube) 1 appl TOPICAL BID [facility]; Protocol Last Admin: 12/18/24 08:10 Dose: 1 appl Documented By: JUWAN Insulin Human Regular (Myxredlin) 100 unit in 100 mls @ 0 mls/hr IVCONT .Q0M [facility]; Protocol Last Titration: 12/16/24 23:23 Dose: Infused Documented By: AMMON Co-signed By: RUBY Metronidazole (Flagyl) 500 mg in 100 mls @ 100 mls/hr IV Q8H [facility] Last Infusion: 12/18/24 03:52 Dose: Infused Documented By: PERFECTO Caspofungin 50 mg/ Sodium (Chloride) 250 mls @ 250 mls/hr IV Q24H [facility] Last Admin: 12/18/24 08:07 Dose: 250 mls/hr Documented By: JUWAN Nutrition (Parenteral) (Parenteral Nutrition) 960 mls @ 40 mls/hr IV .Q24H [facility]; Protocol Stop: 12/18/24 20:59 Last Admin: 12/18/24 02:55 Dose: 40 mls/hr Documented By: PERFECTO Potassium Phosphate (Kphos) 15 mmol in 250 mls @ 62.5 mls/hr IV ONCE ONE Stop: 12/18/24 11:59 Last Admin: 12/18/24 08:09 Dose: 62.5 mls/hr Documented By: JUWAN Insulin Glargine (Insulin Glargine,Hum.Rec.Anlog 100 Unit/Ml 10 Ml Vial) 20 unit SUBCUT DAILY [facility] Last Admin: 12/18/24 08:11 Dose: 20 unit Documented By: JUWAN Insulin Human Lispro (Insulin Lispro 100 Unit/Ml 3 Ml Vial) 0 unit SUBCUT Q6H [facility]; Protocol Last Admin: 12/18/24 05:28 Dose: Not Given Documented By: PERFECTO Non-Admin Reason: Physician Held Med Magnesium Hydroxide (Milk Of Magnesia 30 Ml Oral.Susp) 30 ml PO DAILY PRN PRN Reason: Constipation Melatonin (Melatonin 3 Mg Tablet) 6 mg PO BEDTIME PRN PRN Reason: Insomnia Meropenem (Meropenem 1 Gm Vial) 1 gm IVPUSH Q8H [facility] Last Admin: 12/18/24 02:31 Dose: 1 gm Documented By: PERFECTO Naloxone HCl (Naloxone Hcl 0.4 Mg/Ml Vial) 0.2 mg IVPUSH Q2M PRN PRN Reason: Excessive sedation or RR < 8 Pharmacy Consult (Consult Rx Parenteral Nutrition Ordering) 1 each MISCELLANE DAILY PRN PRN Reason: Consult order Sodium Chloride (0.9 % Sodium Chloride Flush 3 Ml Syringe) 3 ml IVFLUSH QSHIFT [facility] Last Admin: 12/18/24 08:02 Dose: 3 ml Documented By: JUWAN Labs 12/18/24 04:20 12/18/24 04:20 Labs: Laboratory Results - last 24 hr 12/17/24 12/17/24 12/17/24 11:37 17:43 23:23 MCV MCH MCHC RDW Plt Count MPV Immature Gran % (Auto) Neut % (Auto) Lymph % (Auto) [place] % (Auto) Eos % (Auto) Baso % (Auto) Lymph # (Auto) [place] # (Auto) Eos # (Auto) Baso # (Auto) Abs Immat Gran (auto) Absolute Neuts (auto) Absolute Nucleated RBC Nucleated RBC % (auto) Neutrophils % (Manual) Band Neutrophils % Lymphocytes % (Manual) Atypical Lymphs % (Man) Monocytes % (Manual) Eosinophils % (Manual) Basophils % (Manual) Metamyelocytes % Myelocytes % Promyelocytes % Abs Neuts (Manual) Lymphocytes # (Manual) Atyp Lymphs # (Manual) Monocytes # (Manual) Eosinophils # (Manual) Basophils # (Manual) Metamyelocytes # Myelocytes # Promyelocytes # Nucleated RBCs Toxic Granulation Toxic Vacuolation Platelet Estimate Giant Platelets Plt Morphology Comment RBC Morphology Target Cells Tear Drop Cells VBG pH VBG pCO2 VBG pO2 VBG HCO3 VBG O2 Saturation VBG Base Excess Anion Gap Estim Creat Clear Calc Estimated GFR POC Glucose 200 H 185 H 163 H Random Glucose Calcium Phosphorus Magnesium Total Bilirubin AST ALT Alkaline Phosphatase Total Protein Albumin 12/18/24 12/18/24 04:20 04:25 MCV 76.9 L MCH 23.7 L MCHC 30.9 L RDW 21.3 H Plt Count 579 H MPV 10.7 Immature Gran % (Auto) Cancelled Neut % (Auto) Cancelled Lymph % (Auto) Cancelled [place] % (Auto) Cancelled Eos % (Auto) Cancelled Baso % (Auto) Cancelled Lymph # (Auto) Cancelled [place] # (Auto) Cancelled Eos # (Auto) Cancelled Baso # (Auto) Cancelled Abs Immat Gran (auto) Cancelled Absolute Neuts (auto) Cancelled Absolute Nucleated RBC 0.090 H Nucleated RBC % (auto) 0.5 H Neutrophils % (Manual) 77 H Band Neutrophils % 10 H Lymphocytes % (Manual) 2 L Atypical Lymphs % (Man) 2 Monocytes % (Manual) 1 L Eosinophils % (Manual) 1 Basophils % (Manual) 1 Metamyelocytes % 1 Myelocytes % 2 Promyelocytes % 3 Abs Neuts (Manual) 16.0 H Lymphocytes # (Manual) 0.4 L Atyp Lymphs # (Manual) 0.4 Monocytes # (Manual) 0.2 Eosinophils # (Manual) 0.2 Basophils # (Manual) 0.2 Metamyelocytes # 0.2 Myelocytes # 0.4 Promyelocytes # 0.6 Nucleated RBCs 1 H Toxic Granulation PRESENT Toxic Vacuolation PRESENT Platelet Estimate INCREASED Giant Platelets PRESENT Plt Morphology Comment NOTED RBC Morphology NOTED Target Cells 1+ (5-14) Tear Drop Cells 1+ (0-2) VBG pH 7.54 H VBG pCO2 26 VBG pO2 57 VBG HCO3 23 VBG O2 Saturation 87.0 VBG Base Excess 1.5 Anion Gap 14 Estim Creat Clear Calc 114.5 Estimated GFR > 60 POC Glucose Random Glucose 174 H Calcium 8.2 L Phosphorus 2.2 L Magnesium 2.5 Total Bilirubin 0.5 AST 36 ALT 10 Alkaline Phosphatase 83 Total Protein 6.0 L Albumin 3.2 L Procedures Date of Service Date of Service: 12/18/24 Progress Note: A&P Assessment and plan (1) Diverticulitis of colon with perforation: Status: Acute (2) S/P colostomy: Status: Acute Plan 54-year-old male with perforated diverticulitis status post sigmoid resection with colostomy. Patient now extubated and minimally short of breath. Awaiting swallow study today, further management of diet based on study results. Time Spent With Patient Time: Total time managing care of this patient today ____ minutes. Quality Stroke Does the patient have a stroke diagnosis?: No VTE Prior VTE?: No VTE Risk Level:: Medical - moderate - high VTE Device Contraindication: N/A - Device Ordered VTE Drug Contraindication: N/A - Med Ordered
[2024-12-18 11:19] LABS: Glucose, Whole Blood 140 mg/dL (60-115)
--- NOTE | 2024-12-18 11:33 | MHC.SL.SWA ---
Speech Pathologist Impression: Risk of Aspiration Due to: Dysphasia Diet Status: Recommend START diet of PUREE (NDD1) with NECTAR THICK liquids, pillls crushed in puree, 1-1 feed, liquids by tsp or controlled cup sip. If possible, feed patient with reduced 02 flow/nasal cannula. Liquid Consistency and Strategies for Safe Swallow: Liquid Intake Recommendation: [place] Thick Liquid Intake Strategies: Small Sips Solid Food Consistency: Dietary Recommendations: Pureed (NDD1) Additional Modifications to Solid Foods: 1-1 Liquids by tsp or controlled cup sip (no straws). Discontinue with any clinical signs of aspiration, including drop in 02 saturation, coughing; and if patient significantly fatigues or presents as fatigued. Alternate liquids and solids Oral Medication Intake: Crushed with Puree Please contact the pharmacy regarding appropriate crushable or liquid drug formulations that are available whenever modified delivery is recommended. Compensatory Strategies and Precautions to be Taken for Safe Swallow: Sitting Upright (90 deg) No Straw Liquids from Spoon Small Bites and Sips Alternate Liquids/Solids Rate of Ingestion Change Oral Check Supervision While Eating and Drinking for Safe Swallow: Total Assistance (1:1) Foods to Avoid: Mixed consistencies. Swallowing Recommended Treatments: Compens. Strategy Educat. Recommendation for Speech: Further Testing Needed Comment: Patient seen for repeat swallow assessment this morning. Patient had NG tube removed, continues on HF but with reduced 02 requirement. Patient notably producing no voicing today, volitional and spontaneous cough is inaudible and very weak. Patient continues to present as moderately confused, repeatedly asked about his Doctor, was re-oriented to the board which has his staff on it today. He also requested that I write down a schedule, with some effort, he appeared to want notes about what my role was and what I was doing, which was left for him. Due to absent voice, patient was very difficult to understand at times. Patient given water by tsp and cup sip. Patient had mild oral management issues, with some water escaping anteriorly, but improved from yesterday, produces a timely swallow with evident swallow trigger. On cup sip, patient evidenced mild distress after swallow, coughing, with poor/weak cough noted. Patient given nectar thick juice by tsp and controlled cup sip, with improved oral containment, timely swallow, no clinical signs of aspiration. Patient given tsp of pudding/puree, with very slow oral management of the bolus, prolonged oral phase, followed by timely swallow with some residual in anterior of mouth, cleared by sip of NT juice. Patient given softened cracker, with more prolonged oral phase, slow, intermittent mastication, timely swallow, with oral residual present after swallow cleared by sip of liquid. Patient presents with a moderate oral phase dysphagia at this time, secondary to generalized weakness, and has increased risk of aspiration secondary likely open airway (aphonia, weak, inaudible cough). Patient is unable to feed self secondary to generalized weakness/limited UE strength/mvt. Recommend START diet of PUREE (NDD1) with NECTAR THICK liquids, pillls crushed in puree, 1-1 feed, liquids by tsp or controlled cup sip. If possible, feed patient with reduced 02 flow/nasal cannula. RN notified of recommendations in person, MD by note with RN following up with ESTEBAN CARMEN by secure text. ACTIVITY ASSISTANT will continue to follow. Frequency/Duration: Date Range for Service Req: Timeline to reassess: [employer] Clinican/Clinical Fellow: No Supervisory Statement: I have reviewed and agree with the student/clinical fellow's documentation: N/A Speech Language Pathologist: Joann Hull M.A., [facility]-ACTIVITY ASSISTANT
--- NOTE | 2024-12-18 14:34 | MHC.CLN ---
Addendum entered by Lexi Giordano RD 12/18/24 14:42: SKIN WITH DTI TO SACRUM AND DTI TO OCCIPUT. SEE WOUND RD ASSESSMENT. RD ADDING ENSURE MAX BID. SUPPLEMENT PROVIDES 300 KCALS, 60 G PROTEIN. MONITOR FOR SKIN INTEGRITY. Original Note: F/U TPN DISCONTINUED AFTER CURRENT BAG. PATIENT EXTUBATED 12/16 AND NGT OUT. TUBE FEED ORDER DISCONTINUED. DIET=DIABETIC 2000 KCALS, PUREE WITH NECTAR THICK LIQUIDS. FOLLOW FOR DIET TOLERANCE AND PO INTAKE.
[2024-12-18 16:09] LABS: Glucose, Whole Blood 167 mg/dL (60-115)
--- NOTE | 2024-12-18 16:31 | PM.CCPN ---
Subjective Subjective Date of Service: 12/18/24 Interval History: 54-year-old male status post perforated colon with extensive peritoneal soilage due to an obstructing stage IV adenocarcinoma so now has a diverting colostomy and resection of the tumor LEÓN drain is in excellent position and draining which is helping him defervesce and he had not just the peritonitis now being covered with meropenem but I added the IV Flagyl because he had C diff It was complicated with atrial fibrillation and he was receiving fairly high dose of amiodarone and digoxin while in AFib but I felt that we had await for the SIRS to subside including the myocarditis that resulted and stop the amiodarone and the digoxin and sure enough as he defervesced he converted spontaneously back to sinus rhythm initially with prolonged QT in ST-T changes probably due to the amiodarone but amiodarone and digoxin were discontinued Also had ARDS which is resolved he was extubated 2 days ago and he passed a bedside swallow exam and the diet was recommended for him and one-to-one feedings were recommended along with it In addition he has elevated glucoses and he has been on insulin coverage Critical Care Time (minutes): 35 Physical Exam Vital Signs: Vital Signs: Last Vital Signs Temp 98.2 F 12/18/24 16:00 Pulse 73 12/18/24 16:00 Resp 19 12/18/24 16:00 BP 124/73 12/18/24 16:00 Pulse Ox 100 12/18/24 16:00 O2 Del Method High Flow Nasal C annula 12/18/24 16:00 O2 Flow Rate 40 12/18/24 16:00 FiO2 40 12/18/24 16:26 BMI result Body Mass Index 30.5 He is awake and alert and conversational nonfocal neurologically Skin clear Abdomen good bowel sounds soft with functioning colostomy Peripherally he has warm well-perfused Cardiac exam with no murmurs no gallops Objective Data Labs 12/18/24 04:20 12/18/24 04:20 Labs: Laboratory Results - last 24 hr 12/17/24 12/17/24 12/18/24 17:43 23:23 04:20 WBC 18.4 H RBC 3.16 L Hgb 7.5 L Hct 24.3 L MCV 76.9 L MCH 23.7 L MCHC 30.9 L RDW 21.3 H Plt Count 579 H MPV 10.7 Immature Gran % (Auto) Cancelled Neut % (Auto) Cancelled Lymph % (Auto) Cancelled [place] % (Auto) Cancelled Eos % (Auto) Cancelled Baso % (Auto) Cancelled Lymph # (Auto) Cancelled [place] # (Auto) Cancelled Eos # (Auto) Cancelled Baso # (Auto) Cancelled Abs Immat Gran (auto) Cancelled Absolute Neuts (auto) Cancelled Absolute Nucleated RBC 0.090 H Nucleated RBC % (auto) 0.5 H Neutrophils % (Manual) 77 H Band Neutrophils % 10 H Lymphocytes % (Manual) 2 L Atypical Lymphs % (Man) 2 Monocytes % (Manual) 1 L Eosinophils % (Manual) 1 Basophils % (Manual) 1 Metamyelocytes % 1 Myelocytes % 2 Promyelocytes % 3 Abs Neuts (Manual) 16.0 H Lymphocytes # (Manual) 0.4 L Atyp Lymphs # (Manual) 0.4 Monocytes # (Manual) 0.2 Eosinophils # (Manual) 0.2 Basophils # (Manual) 0.2 Metamyelocytes # 0.2 Myelocytes # 0.4 Promyelocytes # 0.6 Nucleated RBCs 1 H Toxic Granulation PRESENT Toxic Vacuolation PRESENT Platelet Estimate INCREASED Giant Platelets PRESENT Plt Morphology Comment NOTED RBC Morphology NOTED Target Cells 1+ (5-14) Tear Drop Cells 1+ (0-2) VBG pH VBG pCO2 VBG pO2 VBG HCO3 VBG O2 Saturation VBG Base Excess Sodium 147 H Potassium 3.3 Chloride 114 H Carbon Dioxide 22 Anion Gap 14 BUN 25 H Creatinine 0.74 Estim Creat Clear Calc 114.5 Estimated GFR > 60 POC Glucose 185 H 163 H Random Glucose 174 H Calcium 8.2 L Phosphorus 2.2 L Magnesium 2.5 Total Bilirubin 0.5 AST 36 ALT 10 Alkaline Phosphatase 83 Total Protein 6.0 L Albumin 3.2 L 12/18/24 12/18/24 12/18/24 04:25 11:11 16:06 WBC RBC Hgb Hct MCV MCH MCHC RDW Plt Count MPV Immature Gran % (Auto) Neut % (Auto) Lymph % (Auto) [place] % (Auto) Eos % (Auto) Baso % (Auto) Lymph # (Auto) [place] # (Auto) Eos # (Auto) Baso # (Auto) Abs Immat Gran (auto) Absolute Neuts (auto) Absolute Nucleated RBC Nucleated RBC % (auto) Neutrophils % (Manual) Band Neutrophils % Lymphocytes % (Manual) Atypical Lymphs % (Man) Monocytes % (Manual) Eosinophils % (Manual) Basophils % (Manual) Metamyelocytes % Myelocytes % Promyelocytes % Abs Neuts (Manual) Lymphocytes # (Manual) Atyp Lymphs # (Manual) Monocytes # (Manual) Eosinophils # (Manual) Basophils # (Manual) Metamyelocytes # Myelocytes # Promyelocytes # Nucleated RBCs Toxic Granulation Toxic Vacuolation Platelet Estimate Giant Platelets Plt Morphology Comment RBC Morphology Target Cells Tear Drop Cells VBG pH 7.54 H VBG pCO2 26 VBG pO2 57 VBG HCO3 23 VBG O2 Saturation 87.0 VBG Base Excess 1.5 Sodium Potassium Chloride Carbon Dioxide Anion Gap BUN Creatinine Estim Creat Clear Calc Estimated GFR POC Glucose 140 H 167 H Random Glucose Calcium Phosphorus Magnesium Total Bilirubin AST ALT Alkaline Phosphatase Total Protein Albumin Microbiology Microbiology Results: Microbiology 12/09/24 08:54 Gastric Fluid Gram Stain - Final 12/09/24 08:54 Gastric Fluid Anaerobic Culture - Final 12/09/24 08:54 Gastric Fluid Body Fluid Culture - Final Klebsiella pneumoniae Flavia species Viridans streptococcus group 12/05/24 20:15 Peritoneal Fluid Gram Stain - Final 12/05/24 20:15 Peritoneal Fluid Routine Culture - Final Klebsiella pneumoniae Escherichia coli Bacillus species Pseudomonas species 12/05/24 20:15 Peritoneal Fluid Anaerobic Culture - Final 12/05/24 16:52 Blood - Venous Blood Culture - Final Escherichia coli Bacteroides fragilis group 12/05/24 16:52 Blood - Venous Blood Culture - Final Escherichia coli Bacteroides fragilis group Progress Note: A&P Assessment and plan (1) Prolonged QT interval: Status: Acute (2) Atrial fibrillation with tachycardic ventricular rate: Status: Acute (3) S/P colostomy: Status: Acute (4) Colonic mass: Status: Acute (5) Status post laparoscopic-assisted sigmoidectomy: Status: Acute (6) Perforated viscus: Status: Acute (7) Peritonitis: Status: Acute (8) Metabolic acidosis with normal anion gap and bicarbonate losses: Status: Acute (9) Hypokalemia due to excessive gastrointestinal loss of potassium: Status: Acute (10) Anemia: Status: Acute (11) Carcinoma of sigmoid colon: Status: Acute (12) Colon cancer: Status: Acute (13) E coli bacteremia: Status: Acute (14) Acute hypoxemic respiratory failure: Status: Acute (15) ARDS (adult respiratory distress syndrome): Status: Acute Plan So the plan for him is to have respiratory continue to follow he might need intermittent high-flow but he definitely needs chest physiotherapy because he has a weak cough He needs one-to-one feedings Probably should have physical therapy and occupational therapy to start getting him up out of bed in a chair he is pretty severely deconditioned Continue antibiotics as above and insulin coverage Quality Stroke Does the patient have a stroke diagnosis?: No VTE Prior VTE?: No VTE Risk Level:: Medical - moderate - high VTE Device Contraindication: N/A - Device Ordered VTE Drug Contraindication: N/A - Med Ordered
--- NOTE | 2024-12-18 18:42 | PC.NURSE ---
Assumed care at 0700. Speech eval resulted in suggestion of a pureed diet with nectar thick liquids. made aware. Pt restless, somewhat agitated. Occasionally removing oxygen. Pt is redirectable. Pt to be transferred to [facility]. Report given to María CASTRO at approx 1745. Pt transported at approx 1820. Pt repositioned q2hr as tolerated. Fall/safety measures in place. See MAR and assessments for further details.
[2024-12-18 20:55] LABS: Glucose, Whole Blood 107 mg/dL (60-115)
[2024-12-19] VITALS (8 sets, daily range): BP systolic 118–137; BP diastolic 73–77; PULSE 77–97; RESP 16–26; TEMP 36.6–37.6; O2SAT 94–96; BMI 34.5
[2024-12-19] MEDS: metroNIDAZOLE/NS 500 MG/100 ML PIGGYBACK 100 MG IV ×3 (01:48→16:38)
[2024-12-19 07:27] LABS: Glucose, Whole Blood 111 mg/dL (60-115)
[2024-12-19 08:46] LABS: Hematocrit 22.5 % (42.0-52.0); Hemoglobin 7.2 g/dl (14.0-18.0); Mean Corpuscular HGB Conc 32.0 g/dl (31.0-36.0); Mean Corpuscular Hemoglobin 24.5 pg (27.0-33.0); Mean Corpuscular Volume 76.5 fL (80.0-98.0); NRBC Abs Auto 0.080 X10*3/uL (0.0-0.012); NRBC Pct Auto 0.5 /100WBC (0.0-0.2); Platelet Count 604 X10*3/uL (160-400); Red Blood Count 2.94 X10*6/uL (4.60-5.80); White Blood Count 15.4 X10*3/uL (4.8-10.8)
[2024-12-19 09:06] LABS: Anion Gap 11 (12-20); Blood Urea Nitrogen 26 mg/dL (9-16); Calcium 8.1 mg/dL (8.4-10.2); Carbon Dioxide 23 mmol/L (22-29); Chloride 116 mmol/L (96-108); Creatinine Clr Calc Pharmacy 134.2; Estimated Glomerular Filt Rate > 60; Potassium 3.5 mmol/L (3.3-5.1); Sodium 146 mmol/L (135-145)
[2024-12-19 09:08] LABS: Atypical Lymph Absolute Manual 0.2 x10*3/uL; Atypical Lymphs Percent Manual 1 % (0-6); Band Neutrophils Percent 10 % (3-5); Eosinophils Absolute Manual 0.8 X10*3/uL (0.0-0.4); Eosinophils Percent Manual 5 % (0-4); Lymphocytes Absolute Manual 1.4 X10*3/uL (1.2-4.9); Lymphocytes Percent Manual 9 % (20-40); Monocytes Absolute Manual 0.8 X10*3/uL (0.1-1.2); Monocytes Percent Manual 5 % (2-11)
[2024-12-19 09:09] LABS: Microcytosis 1+ (5-14) /OIF; RBC Morphology NOTED
[2024-12-19 09:11] LABS: Metamyelocytes Absolute 0.2 X10*3/uL; Metamyelocytes Percent 1 %; Neutrophils Absolute Manual 12.2 X10*3/uL (2.0-8.3); Neutrophils Percent Manual 69 % (45-73)
[2024-12-19 09:13] LABS: Hypochromasia 2+ (15-30) /OIF; Polychromasia 1+ (0-2) /OIF; Target Cells 1+ (5-14) /OIF; Toxic Granulation PRESENT
--- NOTE | 2024-12-19 09:25 | PM.PNGS ---
Subjective Subjective Date of Service: 12/19/24 Interval history: Patient remains extubated on high-flow oxygen. Transferred to [facility] yesterday. Swallow study repeated yesterday and patient placed on NDDI diet with nectar thick liquids, one-to-one feeding with upright positioning to 90 degrees. This morning he is only interested in the ensure but not much of an appetite. Physical Exam Vital Signs: Vital Signs: Last Vital Signs Temp 97.9 F 12/19/24 07:04 Pulse 84 12/19/24 07:04 Resp 22 H 12/19/24 08:12 BP 127/77 12/19/24 07:04 Pulse Ox 96 12/19/24 07:04 O2 Del Method High Flow Nasal C annula 12/19/24 07:04 O2 Flow Rate 40 12/19/24 07:04 FiO2 43.0 12/19/24 07:04 BMI result Body Mass Index 34.5 Const: General: no acute distress and confusion Nutritional Appearance: average body habitus Orientation/consciousness: confusion Resp: Effort & Inspection: normal respiratory effort GI: Other: Wounds are clean and intact. Ostomy functioning well, bag full of stool. Neuro: General: confusion Extrem: General: Yes pedal edema Objective Data Active Medications Dextrose (Dextrose 50 % 25 Gm/50 Ml Syringe) 25 gm IVPUSH Q15M PRN; Protocol PRN Reason: per Hypoglycemia Standing Ord. Dextrose (Dextrose 50 % 25 Gm/50 Ml Syringe) 25 gm IVPUSH Q15M PRN PRN Reason: per Hypoglycemia Standing Ord. Famotidine (Famotidine/Pf 20 Mg/2 Ml Vial) 20 mg IVPUSH DAILY [facility] Last Admin: 12/18/24 08:09 Dose: 20 mg Documented By: JUWAN Glucose (Glucose Gel 15 Gm Gel..Gram.) 15 gm PO Q15M PRN; Protocol PRN Reason: per Hypoglycemia Standing Ord. Heparin Sodium (Porcine) (Heparin Sodium,Porcine 5,000 Unit/Ml Vial) 5,000 unit SUBCUT Q8H [facility] Last Admin: 12/19/24 01:48 Dose: 5,000 unit Documented By: MICHELLE Hydrocortisone (Hydrocortisone 1 % Cream 28.35 Gm Tube) 1 appl TOPICAL BID [facility]; Protocol Last Admin: 12/18/24 20:14 Dose: 1 appl Documented By: MICHELLE Metronidazole (Flagyl) 500 mg in 100 mls @ 100 mls/hr IV Q8H [facility] Last Infusion: 12/19/24 02:50 Dose: Infused Documented By: MICHELLE Caspofungin 50 mg/ Sodium (Chloride) 250 mls @ 250 mls/hr IV Q24H [facility] Last Infusion: 12/18/24 09:40 Dose: Infused Documented By: JUWAN Insulin Glargine (Insulin Glargine,Hum.Rec.Anlog 100 Unit/Ml 10 Ml Vial) 20 unit SUBCUT DAILY [facility] Last Admin: 12/18/24 08:11 Dose: 20 unit Documented By: JUWAN Insulin Human Lispro (Insulin Lispro 100 Unit/Ml 3 Ml Vial) 0 unit SUBCUT QIDACHS [facility]; Protocol Last Admin: 12/19/24 07:34 Dose: Not Given Documented By: EMIL Non-Admin Reason: No Insulin Coverage Magnesium Hydroxide (Milk Of Magnesia 30 Ml Oral.Susp) 30 ml PO DAILY PRN PRN Reason: Constipation Melatonin (Melatonin 3 Mg Tablet) 6 mg PO BEDTIME PRN PRN Reason: Insomnia Meropenem (Meropenem 1 Gm Vial) 1 gm IVPUSH Q8H [facility] Last Admin: 12/19/24 01:48 Dose: 1 gm Documented By: MICHELLE Naloxone HCl (Naloxone Hcl 0.4 Mg/Ml Vial) 0.2 mg IVPUSH Q2M PRN PRN Reason: Excessive sedation or RR < 8 Pharmacy Consult (Consult Rx Parenteral Nutrition Ordering) 1 each MISCELLANE DAILY PRN PRN Reason: Consult order Sodium Chloride (0.9 % Sodium Chloride Flush 3 Ml Syringe) 3 ml IVFLUSH QSHIFT [facility] Last Admin: 12/18/24 20:07 Dose: 3 ml Documented By: MICHELLE Labs 12/19/24 08:21 12/19/24 08:21 Labs: Laboratory Results - last 24 hr 12/18/24 12/18/24 12/18/24 11:11 16:06 20:51 MCV MCH MCHC RDW Plt Count MPV Immature Gran % (Auto) Neut % (Auto) Lymph % (Auto) [place] % (Auto) Eos % (Auto) Baso % (Auto) Lymph # (Auto) [place] # (Auto) Eos # (Auto) Baso # (Auto) Abs Immat Gran (auto) Absolute Neuts (auto) Absolute Nucleated RBC Nucleated RBC % (auto) Neutrophils % (Manual) Band Neutrophils % Lymphocytes % (Manual) Atypical Lymphs % (Man) Monocytes % (Manual) Eosinophils % (Manual) Metamyelocytes % Abs Neuts (Manual) Lymphocytes # (Manual) Atyp Lymphs # (Manual) Monocytes # (Manual) Eosinophils # (Manual) Metamyelocytes # Nucleated RBCs Toxic Granulation Platelet Estimate Plt Morphology Comment RBC Morphology Polychromasia Hypochromasia Microcytosis Target Cells Anion Gap Estim Creat Clear Calc Estimated GFR POC Glucose 140 H 167 H 107 Random Glucose Calcium 12/19/24 12/19/24 07:03 08:21 MCV 76.5 L MCH 24.5 L MCHC 32.0 RDW 21.4 H Plt Count 604 H MPV 10.1 Immature Gran % (Auto) Cancelled Neut % (Auto) Cancelled Lymph % (Auto) Cancelled [place] % (Auto) Cancelled Eos % (Auto) Cancelled Baso % (Auto) Cancelled Lymph # (Auto) Cancelled [place] # (Auto) Cancelled Eos # (Auto) Cancelled Baso # (Auto) Cancelled Abs Immat Gran (auto) Cancelled Absolute Neuts (auto) Cancelled Absolute Nucleated RBC 0.080 H Nucleated RBC % (auto) 0.5 H Neutrophils % (Manual) 69 Band Neutrophils % 10 H Lymphocytes % (Manual) 9 L Atypical Lymphs % (Man) 1 Monocytes % (Manual) 5 Eosinophils % (Manual) 5 H Metamyelocytes % 1 Abs Neuts (Manual) 12.2 H Lymphocytes # (Manual) 1.4 Atyp Lymphs # (Manual) 0.2 Monocytes # (Manual) 0.8 Eosinophils # (Manual) 0.8 H Metamyelocytes # 0.2 Nucleated RBCs 1 H Toxic Granulation PRESENT Platelet Estimate INCREASED Plt Morphology Comment NORMAL RBC Morphology NOTED Polychromasia 1+ (0-2) Hypochromasia 2+ (15-30) Microcytosis 1+ (5-14) Target Cells 1+ (5-14) Anion Gap 11 L Estim Creat Clear Calc 134.2 Estimated GFR > 60 POC Glucose 111 Random Glucose 123 H Calcium 8.1 L Procedures Date of Service Date of Service: 12/19/24 Progress Note: A&P Assessment and plan (1) Diverticulitis of colon with perforation: Status: Acute (2) S/P colostomy: Status: Acute Plan 54-year-old male with perforated diverticulitis status post sigmoid resection with colostomy. Patient remains extubated in his starting p.o. with a restricted diet based on swallow study yesterday. Abdomen is soft with large amount of stool in his bag. Continue IV antibiotics. Monitor p.o. intake. H&H drifting downward, repeat studies in a.m.. Time Spent With Patient Time: Total time managing care of this patient today ____ minutes. Quality Stroke Does the patient have a stroke diagnosis?: No VTE Prior VTE?: No VTE Risk Level:: Medical - moderate - high VTE Device Contraindication: N/A - Device Ordered VTE Drug Contraindication: N/A - Med Ordered
--- NOTE | 2024-12-19 09:31 | HO.PM.IMPN ---
Subjective Subjective Date of Service: 12/19/24 Interval History: No complaints nurse reported pt said he didn't want to live like this and so a sitter was pput in place Neurologic Neurologic: Reports confusion Psychiatric Psychiatric: Reports confusion Physical Exam Vital Signs: Vital Signs: Last Vital Signs Temp 97.9 F 12/19/24 07:04 Pulse 84 12/19/24 07:04 Resp 22 H 12/19/24 08:12 BP 127/77 12/19/24 07:04 Pulse Ox 96 12/19/24 07:04 O2 Del Method High Flow Nasal C annula 12/19/24 07:04 O2 Flow Rate 40 12/19/24 07:04 FiO2 43.0 12/19/24 07:04 BMI result Body Mass Index 34.5 Const: General: no acute distress and confusion Nutritional Appearance: average body habitus Orientation/consciousness: confusion Resp: Effort & Inspection: normal respiratory effort GI: Other: Wounds are clean and intact. Ostomy functioning well, bag full of stool. Neuro: General: confusion Extrem: General: Yes pedal edema Objective Data Active Medications Dextrose (Dextrose 50 % 25 Gm/50 Ml Syringe) 25 gm IVPUSH Q15M PRN; Protocol PRN Reason: per Hypoglycemia Standing Ord. Dextrose (Dextrose 50 % 25 Gm/50 Ml Syringe) 25 gm IVPUSH Q15M PRN PRN Reason: per Hypoglycemia Standing Ord. Famotidine (Famotidine/Pf 20 Mg/2 Ml Vial) 20 mg IVPUSH DAILY [facility] Last Admin: 12/18/24 08:09 Dose: 20 mg Documented By: JUWAN Glucose (Glucose Gel 15 Gm Gel..Gram.) 15 gm PO Q15M PRN; Protocol PRN Reason: per Hypoglycemia Standing Ord. Heparin Sodium (Porcine) (Heparin Sodium,Porcine 5,000 Unit/Ml Vial) 5,000 unit SUBCUT Q8H [facility] Last Admin: 12/19/24 01:48 Dose: 5,000 unit Documented By: MICHELLE Hydrocortisone (Hydrocortisone 1 % Cream 28.35 Gm Tube) 1 appl TOPICAL BID [facility]; Protocol Last Admin: 12/18/24 20:14 Dose: 1 appl Documented By: MICHELLE Metronidazole (Flagyl) 500 mg in 100 mls @ 100 mls/hr IV Q8H [facility] Last Infusion: 12/19/24 02:50 Dose: Infused Documented By: MICHELLE Caspofungin 50 mg/ Sodium (Chloride) 250 mls @ 250 mls/hr IV Q24H [facility] Last Infusion: 12/18/24 09:40 Dose: Infused Documented By: JUWAN Insulin Glargine (Insulin Glargine,Hum.Rec.Anlog 100 Unit/Ml 10 Ml Vial) 20 unit SUBCUT DAILY [facility] Last Admin: 12/18/24 08:11 Dose: 20 unit Documented By: JUWAN Insulin Human Lispro (Insulin Lispro 100 Unit/Ml 3 Ml Vial) 0 unit SUBCUT QIDACHS [facility]; Protocol Last Admin: 12/19/24 07:34 Dose: Not Given Documented By: EMIL Non-Admin Reason: No Insulin Coverage Magnesium Hydroxide (Milk Of Magnesia 30 Ml Oral.Susp) 30 ml PO DAILY PRN PRN Reason: Constipation Melatonin (Melatonin 3 Mg Tablet) 6 mg PO BEDTIME PRN PRN Reason: Insomnia Meropenem (Meropenem 1 Gm Vial) 1 gm IVPUSH Q8H [facility] Last Admin: 12/19/24 01:48 Dose: 1 gm Documented By: MICHELLE Naloxone HCl (Naloxone Hcl 0.4 Mg/Ml Vial) 0.2 mg IVPUSH Q2M PRN PRN Reason: Excessive sedation or RR < 8 Pharmacy Consult (Consult Rx Parenteral Nutrition Ordering) 1 each MISCELLANE DAILY PRN PRN Reason: Consult order Sodium Chloride (0.9 % Sodium Chloride Flush 3 Ml Syringe) 3 ml IVFLUSH QSHIFT [facility] Last Admin: 12/18/24 20:07 Dose: 3 ml Documented By: MICHELLE Labs 12/20/24 07:09 12/20/24 07:09 Labs: Laboratory Results - last 24 hr 12/18/24 12/18/24 12/18/24 11:11 16:06 20:51 MCV MCH MCHC RDW Plt Count MPV Immature Gran % (Auto) Neut % (Auto) Lymph % (Auto) [place] % (Auto) Eos % (Auto) Baso % (Auto) Lymph # (Auto) [place] # (Auto) Eos # (Auto) Baso # (Auto) Abs Immat Gran (auto) Absolute Neuts (auto) Absolute Nucleated RBC Nucleated RBC % (auto) Neutrophils % (Manual) Band Neutrophils % Lymphocytes % (Manual) Atypical Lymphs % (Man) Monocytes % (Manual) Eosinophils % (Manual) Metamyelocytes % Abs Neuts (Manual) Lymphocytes # (Manual) Atyp Lymphs # (Manual) Monocytes # (Manual) Eosinophils # (Manual) Metamyelocytes # Nucleated RBCs Toxic Granulation Platelet Estimate Plt Morphology Comment RBC Morphology Polychromasia Hypochromasia Microcytosis Target Cells Anion Gap Estim Creat Clear Calc Estimated GFR POC Glucose 140 H 167 H 107 Random Glucose Calcium 12/19/24 12/19/24 07:03 08:21 MCV 76.5 L MCH 24.5 L MCHC 32.0 RDW 21.4 H Plt Count 604 H MPV 10.1 Immature Gran % (Auto) Cancelled Neut % (Auto) Cancelled Lymph % (Auto) Cancelled [place] % (Auto) Cancelled Eos % (Auto) Cancelled Baso % (Auto) Cancelled Lymph # (Auto) Cancelled [place] # (Auto) Cancelled Eos # (Auto) Cancelled Baso # (Auto) Cancelled Abs Immat Gran (auto) Cancelled Absolute Neuts (auto) Cancelled Absolute Nucleated RBC 0.080 H Nucleated RBC % (auto) 0.5 H Neutrophils % (Manual) 69 Band Neutrophils % 10 H Lymphocytes % (Manual) 9 L Atypical Lymphs % (Man) 1 Monocytes % (Manual) 5 Eosinophils % (Manual) 5 H Metamyelocytes % 1 Abs Neuts (Manual) 12.2 H Lymphocytes # (Manual) 1.4 Atyp Lymphs # (Manual) 0.2 Monocytes # (Manual) 0.8 Eosinophils # (Manual) 0.8 H Metamyelocytes # 0.2 Nucleated RBCs 1 H Toxic Granulation PRESENT Platelet Estimate INCREASED Plt Morphology Comment NORMAL RBC Morphology NOTED Polychromasia 1+ (0-2) Hypochromasia 2+ (15-30) Microcytosis 1+ (5-14) Target Cells 1+ (5-14) Anion Gap 11 L Estim Creat Clear Calc 134.2 Estimated GFR > 60 POC Glucose 111 Random Glucose 123 H Calcium 8.1 L Assessment and Plan (1) Diverticulitis of colon with perforation: Status: Acute (2) Peritonitis: Status: Acute Plan 54M PMH 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 Hospital course further complicated by anemia, Cdif Perforated colon with peritonitis, sepsis s/p colostomy on 11/16 peritoneal fluis has grown klebsiela, julieth, strep viridan, ecoli, bacillus and pseudomonas -he has been on multiple Abx current on Flagyl, meropenem and caspofungus E. coli and B. Fragilis bacteremia on presenation Flagyl and meropenem as above For now ID recommends Meropenen,metronidazole and caspofungin for 14 d total. Paroxysmal AFIB, presently in sinus, was treated with amiodarone, afib probably triggered by sepsis Had echo earlier in November, not candidate for anticoagulation given profound anemia Anemia likely from combination of chronic disease, colon cancer H/H is somehow low but stable, continue to monitor and only transfuse if hgb is less than 7 Colon cancer, outpatient follow up with oncology Hyperglycemia? diabetes on lantus, check A1Cn 6.8 diabetic diet and sliding scale insulin DVT prophylaxis: Heparin Full Code Quality Stroke Does the patient have a stroke diagnosis?: No VTE Prior VTE?: No VTE Risk Level:: Medical - moderate - high VTE Device Contraindication: N/A - Device Ordered VTE Drug Contraindication: N/A - Med Ordered
[2024-12-19] MEDS: Insulin Glargine,Hum.rec.anlog 100 UNIT/ML 10 ML VIAL 20 UNIT SUBCUT (09:55)
[2024-12-19] MEDS: Hydrocortisone 1 % Cream 28.35 GM TUBE 1 APPL TOPICAL ×2 (09:59→23:07)
[2024-12-19] MEDS: 0.9 % Sodium Chloride Flush 3 ML SYRINGE IVFLUSH ×3 (10:04→23:08)
[2024-12-19 10:47] LABS: Hemoglobin A1C 99.3930 umol/L; Total Hemoglobin (HGBA1C) 1944.4335 umol/L
[2024-12-19 11:46] LABS: Glucose, Whole Blood 114 mg/dL (60-115)
[2024-12-19] MEDS: oxyCODONE HCl Immed Release 5 MG TABLET PO (16:38)
[2024-12-19 16:45] LABS: Glucose, Whole Blood 110 mg/dL (60-115)
[2024-12-19 20:39] LABS: Glucose, Whole Blood 103 mg/dL (60-115)
--- NOTE | 2024-12-19 23:58 | W.PM.IDCN ---
History of Present Illness Data of Consult Service Date: 12/19/24 Requesting physician: Bam Collazo Primary Care Provider: Unknown Physician HPI Reason for consult: polymicrobial bacteremia He presents on 12/05 with 7/10 abdominal pain,found to have perforated diverticultis and had sigmoid colon resection and colostomy. He has had colon cancer and chemotherapy. He has sensitive E coli and b fragilis in blood. He has had acute respiratory distress syndrome and intubated in ICU. He was extubated on 12/16. He had purulent LEÓN drainage reported. He has abdomen drainage reported with multiple organisms including fungus. Review of Systems Review of Systems: Yes all other systems are reviewed and are negative PMFSH Past Medical History Medical History Perforated viscus Anemia No pertinent past medical history Family History Family History Maternal Grandmother Heart attack Family history: reviewed and not pertinent Surgical History Surgical History History of liver biopsy Hx of right knee surgery (~2010) Social History Social History Household Members: Unknown / Unable to assess Housing: Unknown / Unable to assess Are you a primary personal caregiver to a significant other at home: No Do you presently have visiting nurse or other home services: No Patient Tobacco Use Status: Never used Tobacco Currently Displaying Signs/Symptoms of Drug Intoxication Withdrawal: No Advance Directives: No Advance Directives Information Provided: No Do you have a plan to hurt others: No Plan Recently lost weight without trying: No Eating poorly because of decreased appetite: No Nutrition Risks: No Nutritional Risk Poor oral hygiene: Yes service: No Current occupational status: unemployed Current occupation: Right hand dominate Meds Allergies Allergy/AdvReac Type Severity Reaction Status Date / Time No Known Allergies Allergy Verified 12/05/24 14:57 Active Medications: Current Medications Acetaminophen (Acetaminophen 325 Mg Tablet) 650 mg PO Q6H PRN PRN Reason: Pain, Moderate(Pain Scale 4-6) Last Admin: 12/19/24 12:15 Dose: 650 mg Dextrose (Dextrose 50 % 25 Gm/50 Ml Syringe) 25 gm IVPUSH Q15M PRN; Protocol PRN Reason: per Hypoglycemia Standing Ord. Dextrose (Dextrose 50 % 25 Gm/50 Ml Syringe) 25 gm IVPUSH Q15M PRN PRN Reason: per Hypoglycemia Standing Ord. Famotidine (Famotidine/Pf 20 Mg/2 Ml Vial) 20 mg IVPUSH DAILY [facility] Last Admin: 12/19/24 09:57 Dose: 20 mg Glucose (Glucose Gel 15 Gm Gel..Gram.) 15 gm PO Q15M PRN; Protocol PRN Reason: per Hypoglycemia Standing Ord. Heparin Sodium (Porcine) (Heparin Sodium,Porcine 5,000 Unit/Ml Vial) 5,000 unit SUBCUT Q8H [facility] Last Admin: 12/19/24 18:11 Dose: 5,000 unit Hydrocortisone (Hydrocortisone 1 % Cream 28.35 Gm Tube) 1 appl TOPICAL BID [facility]; Protocol Last Admin: 12/19/24 23:07 Dose: 1 appl Metronidazole (Flagyl) 500 mg in 100 mls @ 100 mls/hr IV Q8H [facility] Last Infusion: 12/19/24 17:57 Dose: Infused Caspofungin 50 mg/ Sodium (Chloride) 250 mls @ 250 mls/hr IV Q24H [facility] Last Infusion: 12/19/24 11:00 Dose: Infused Insulin Glargine (Insulin Glargine,Hum.Rec.Anlog 100 Unit/Ml 10 Ml Vial) 20 unit SUBCUT DAILY [facility] Last Admin: 12/19/24 09:55 Dose: 20 unit Insulin Human Lispro (Insulin Lispro 100 Unit/Ml 3 Ml Vial) 0 unit SUBCUT QIDACHS [facility]; Protocol Last Admin: 12/19/24 21:18 Dose: Not Given Magnesium Hydroxide (Milk Of Magnesia 30 Ml Oral.Susp) 30 ml PO DAILY PRN PRN Reason: Constipation Melatonin (Melatonin 3 Mg Tablet) 6 mg PO BEDTIME PRN PRN Reason: Insomnia Meropenem (Meropenem 1 Gm Vial) 1 gm IVPUSH Q8H [facility] Last Admin: 12/19/24 18:12 Dose: 1 gm Naloxone HCl (Naloxone Hcl 0.4 Mg/Ml Vial) 0.2 mg IVPUSH Q2M PRN PRN Reason: Excessive sedation or RR < 8 Oxycodone HCl (Oxycodone Hcl Immed Release 5 Mg Tablet) 5 mg PO Q6H PRN PRN Reason: Pain, Severe (Pain Scale 7-10) Last Admin: 12/19/24 16:38 Dose: 5 mg Pharmacy Consult (Consult Rx Parenteral Nutrition Ordering) 1 each MISCELLANE DAILY PRN PRN Reason: Consult order Sodium Chloride (0.9 % Sodium Chloride Flush 3 Ml Syringe) [facility] Last Admin: 12/19/24 23:08 Dose: 3 ml Home Medications ?Medication ?Instructions ?Recorded ?Confirmed ?Last Taken ?Type dexamethasone 4 mg tablet 4 mg PO BID PRN x2 days after 12/06/24 12/06/24 Unknown History chemotherapy Physical Exam Vital Signs: Vital Signs: Last Vital Signs Temp 98.4 F 12/19/24 23:50 Pulse 83 12/19/24 23:50 Resp 20 12/19/24 23:50 BP 137/77 12/19/24 23:50 Pulse Ox 96 12/19/24 23:50 O2 Del Method Nasal Cannula 12/19/24 23:50 O2 Flow Rate 3 12/19/24 23:50 FiO2 43.0 12/19/24 07:04 BMI result Body Mass Index 34.5 GI: Other: ostomy,clear abdomen Results Labs 12/19/24 08:21 12/19/24 08:21 Labs: Short CBC 12/19/24 Range/Units 08:21 WBC 15.4 H (4.8-10.8) X10*3/uL Hgb 7.2 L (14.0-18.0) g/dl Hct 22.5 L (42.0-52.0) % Plt Count 604 H (160-400) X10*3/uL BMP 12/19/24 08:21 Sodium 146 H Potassium 3.5 Chloride 116 H Carbon Dioxide 23 BUN 26 H Creatinine 0.67 Calcium 8.1 L Microbiology Microbiology Results: Microbiology 12/09/24 08:54 Gastric Fluid Gram Stain - Final 12/09/24 08:54 Gastric Fluid Anaerobic Culture - Final 12/09/24 08:54 Gastric Fluid Body Fluid Culture - Final Klebsiella pneumoniae Flavia species Viridans streptococcus group 12/05/24 20:15 Peritoneal Fluid Gram Stain - Final 12/05/24 20:15 Peritoneal Fluid Routine Culture - Final Klebsiella pneumoniae Escherichia coli Bacillus species Pseudomonas species 12/05/24 20:15 Peritoneal Fluid Anaerobic Culture - Final 12/05/24 16:52 Blood - Venous Blood Culture - Final Escherichia coli Bacteroides fragilis group 12/05/24 16:52 Blood - Venous Blood Culture - Final Escherichia coli Bacteroides fragilis group Assessment and Plan (1) Diverticulitis of colon with perforation: Status: Acute Plan He has multiple organisms in perforation and still concern for resistance and fungus even though E coli in blood pansensitive. Would continue Zosyn,metronidazole and caspofungin for 14 d total.
[2024-12-20] MEDS: metroNIDAZOLE/NS 500 MG/100 ML PIGGYBACK 100 MG IV ×3 (02:48→17:51)
[2024-12-20 03:55] VITALS: BP 138/73; PULSE 82; RESP 20; TEMP 36.9; O2SAT 91
[2024-12-20 05:43] VITALS: BMI 35.0
[2024-12-20 07:17] LABS: MANUAL DIFF FLAG NO
[2024-12-20 07:23] LABS: Hematocrit 25.3 % (42.0-52.0); Hemoglobin 7.9 g/dl (14.0-18.0); Imm Gran Abs Auto 0.53 X10*3/uL (0.00-0.03); Imm Gran Pct Auto 3.2 % (0.0-0.4); Lymphocytes Absolute Auto 1.6 X10*3/uL (1.2-4.9); Mean Corpuscular HGB Conc 31.2 g/dl (31.0-36.0); Mean Corpuscular Hemoglobin 24.5 pg (27.0-33.0); Mean Corpuscular Volume 78.6 fL (80.0-98.0); NRBC Abs Auto 0.070 X10*3/uL (0.0-0.012); NRBC Pct Auto 0.4 /100WBC (0.0-0.2); Platelet Count 595 X10*3/uL (160-400); Red Blood Count 3.22 X10*6/uL (4.60-5.80); White Blood Count 16.5 X10*3/uL (4.8-10.8)
[2024-12-20 07:23] LABS: Glucose, Whole Blood 102 mg/dL (60-115)
[2024-12-20 07:37] LABS: Anion Gap 12 (12-20); Blood Urea Nitrogen 26 mg/dL (9-16); Calcium 8.2 mg/dL (8.4-10.2); Carbon Dioxide 23 mmol/L (22-29); Chloride 114 mmol/L (96-108); Creatinine Clr Calc Pharmacy 135.2; Estimated Glomerular Filt Rate > 60; Potassium 3.6 mmol/L (3.3-5.1); Sodium 145 mmol/L (135-145)
[2024-12-20 08:00] VITALS: BP 135/71; PULSE 88; RESP 20; TEMP 36.8; O2SAT 93
[2024-12-20] MEDS: Insulin Glargine,Hum.rec.anlog 100 UNIT/ML 10 ML VIAL 20 UNIT SUBCUT (08:36)
[2024-12-20] MEDS: 0.9 % Sodium Chloride Flush 3 ML SYRINGE IVFLUSH ×2 (08:37→17:50)
[2024-12-20] MEDS: Hydrocortisone 1 % Cream 28.35 GM TUBE 1 APPL TOPICAL ×2 (08:38→20:15)
--- NOTE | 2024-12-20 09:56 | HO.PM.IMPN ---
Subjective Subjective Date of Service: 12/20/24 Interval History: No new issues, feels better, denies SI Physical Exam Vital Signs: Vital Signs: Last Vital Signs Temp 98.2 F 12/20/24 08:00 Pulse 88 12/20/24 08:00 Resp 20 12/20/24 08:00 BP 135/71 12/20/24 08:00 Pulse Ox 93 12/20/24 08:00 O2 Del Method Nasal Cannula 12/20/24 08:00 O2 Flow Rate 3 12/20/24 08:00 FiO2 43.0 12/19/24 07:04 BMI result Body Mass Index 35.0 Const: Other: General: looks depressed Resp: CTA bilateral CVS: S1,S2,RRR, some swelling in legs GI: +BS, NT, no distention, ostomy in place Skin: No rash Neuro: motor grossly intact Psych: appropriate affect Objective Data Active Medications Acetaminophen (Acetaminophen 325 Mg Tablet) 650 mg PO Q6H PRN PRN Reason: Pain, Moderate(Pain Scale 4-6) Last Admin: 12/19/24 12:15 Dose: 650 mg Documented By: EMIL Dextrose (Dextrose 50 % 25 Gm/50 Ml Syringe) 25 gm IVPUSH Q15M PRN; Protocol PRN Reason: per Hypoglycemia Standing Ord. Dextrose (Dextrose 50 % 25 Gm/50 Ml Syringe) 25 gm IVPUSH Q15M PRN PRN Reason: per Hypoglycemia Standing Ord. Famotidine (Famotidine/Pf 20 Mg/2 Ml Vial) 20 mg IVPUSH DAILY [facility] Last Admin: 12/20/24 08:37 Dose: 20 mg Documented By: ALEX Glucose (Glucose Gel 15 Gm Gel..Gram.) 15 gm PO Q15M PRN; Protocol PRN Reason: per Hypoglycemia Standing Ord. Heparin Sodium (Porcine) (Heparin Sodium,Porcine 5,000 Unit/Ml Vial) 5,000 unit SUBCUT Q8H [facility] Last Admin: 12/20/24 02:48 Dose: 5,000 unit Documented By: AUSTIN Hydrocortisone (Hydrocortisone 1 % Cream 28.35 Gm Tube) 1 appl TOPICAL BID [facility]; Protocol Last Admin: 12/20/24 08:38 Dose: 1 appl Documented By: ALEX Metronidazole (Flagyl) 500 mg in 100 mls @ 100 mls/hr IV Q8H [facility] Last Infusion: 12/20/24 04:06 Dose: Infused Documented By: ALEX Caspofungin 50 mg/ Sodium (Chloride) 250 mls @ 250 mls/hr IV Q24H [facility] Last Admin: 12/20/24 08:36 Dose: 250 mls/hr Documented By: ALEX Insulin Glargine (Insulin Glargine,Hum.Rec.Anlog 100 Unit/Ml 10 Ml Vial) 20 unit SUBCUT DAILY [facility] Last Admin: 12/20/24 08:36 Dose: 20 unit Documented By: ALEX Insulin Human Lispro (Insulin Lispro 100 Unit/Ml 3 Ml Vial) 0 unit SUBCUT QIDACHS [facility]; Protocol Last Admin: 12/20/24 07:27 Dose: Not Given Documented By: ALEX Non-Admin Reason: No Insulin Coverage Magnesium Hydroxide (Milk Of Magnesia 30 Ml Oral.Susp) 30 ml PO DAILY PRN PRN Reason: Constipation Melatonin (Melatonin 3 Mg Tablet) 6 mg PO BEDTIME PRN PRN Reason: Insomnia Meropenem (Meropenem 1 Gm Vial) 1 gm IVPUSH Q8H [facility] Last Admin: 12/20/24 02:48 Dose: 1 gm Documented By: AUSTIN Naloxone HCl (Naloxone Hcl 0.4 Mg/Ml Vial) 0.2 mg IVPUSH Q2M PRN PRN Reason: Excessive sedation or RR < 8 Oxycodone HCl (Oxycodone Hcl Immed Release 5 Mg Tablet) 5 mg PO Q6H PRN PRN Reason: Pain, Severe (Pain Scale 7-10) Last Admin: 12/19/24 16:38 Dose: 5 mg Documented By: EMIL Pharmacy Consult (Consult Rx Parenteral Nutrition Ordering) 1 each MISCELLANE DAILY PRN PRN Reason: Consult order Sodium Chloride (0.9 % Sodium Chloride Flush 3 Ml Syringe) 3 ml IVFLUSH QSHIFT [facility] Last Admin: 12/20/24 08:37 Dose: 3 ml Documented By: ALEX Labs 12/20/24 07:09 12/20/24 07:09 Labs: Laboratory Results - last 24 hr 12/19/24 12/19/24 12/19/24 08:21 11:36 16:30 MCV MCH MCHC RDW Plt Count MPV Immature Gran % (Auto) Neut % (Auto) Lymph % (Auto) [place] % (Auto) Eos % (Auto) Baso % (Auto) Lymph # (Auto) [place] # (Auto) Eos # (Auto) Baso # (Auto) Abs Immat Gran (auto) Absolute Neuts (auto) Absolute Nucleated RBC Nucleated RBC % (auto) Anion Gap Estim Creat Clear Calc Estimated GFR POC Glucose 114 110 Random Glucose Estimat Average Glucose 148 Hemoglobin A1c % 6.8 H Calcium 12/19/24 12/20/24 12/20/24 20:30 07:09 07:18 MCV 78.6 L MCH 24.5 L MCHC 31.2 RDW 22.1 H Plt Count 595 H MPV 10.0 Immature Gran % (Auto) 3.2 H Neut % (Auto) 74.9 H Lymph % (Auto) 9.5 L [place]ley % (Auto) 7.7 Eos % (Auto) 4.1 H Baso % (Auto) 0.6 Lymph # (Auto) 1.6 Crowley # (Auto) 1.3 H Eos # (Auto) 0.7 H Baso # (Auto) 0.1 Abs Immat Gran (auto) 0.53 H Absolute Neuts (auto) 12.3 H Absolute Nucleated RBC 0.070 H Nucleated RBC % (auto) 0.4 H Anion Gap 12 Estim Creat Clear Calc 135.2 Estimated GFR > 60 POC Glucose 103 102 Random Glucose 100 Estimat Average Glucose Hemoglobin A1c % Calcium 8.2 L Assessment and Plan (1) Diverticulitis of colon with perforation: Status: Acute (2) Peritonitis: Status: Acute Plan 54M PMH 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 Hospital course further complicated by anemia, Cdif Perforated colon with peritonitis, sepsis s/p colostomy on 11/16 peritoneal fluis has grown klebsiela, julieth, strep viridan, ecoli, bacillus and pseudomonas he has been on multiple Abx current on Flagyl, meropenem and caspofungus E. coli and B. Fragilis bacteremia on presenation Flagyl and meropenem as above For now ID recommends Meropenen,metronidazole and caspofungin for 14 d total. Paroxysmal AFIB, presently in sinus, was treated with amiodarone, afib probably triggered by sepsis Had echo earlier in November, not candidate for anticoagulation given profound anemia Anemia likely from combination of chronic disease, colon cancer H/H is somehow low but stable, continue to monitor and only transfuse if hgb is less than 7 Colon cancer, outpatient follow up with oncology Hyperglycemia? diabetes on lantus, check A1Cn 6.8 diabetic diet and sliding scale insulin ? SI/pt is just depressed d/t ongoing medical issues with no intention to harm self, continue monitoring, consider psych consult no indication for continuous cardiac monitoring at this time DVT prophylaxis: Heparin Full Code Quality Stroke Does the patient have a stroke diagnosis?: No VTE Prior VTE?: No VTE Risk Level:: Medical - moderate - high VTE Device Contraindication: N/A - Device Ordered VTE Drug Contraindication: N/A - Med Ordered
--- NOTE | 2024-12-20 11:30 | PM.PNGS ---
Subjective Subjective Date of Service: 12/20/24 Interval history: Seems more alert this morning with a weak cough. Tolerating ensure with thickener without nausea or vomiting. On nasal O2 currently. No apparent respiratory distress Physical Exam Vital Signs: Vital Signs: Last Vital Signs Temp 98.2 F 12/20/24 08:00 Pulse 88 12/20/24 08:00 Resp 20 12/20/24 08:00 BP 135/71 12/20/24 08:00 Pulse Ox 93 12/20/24 08:00 O2 Del Method Nasal Cannula 12/20/24 08:00 O2 Flow Rate 3 12/20/24 08:00 FiO2 43.0 12/19/24 07:04 BMI result Body Mass Index 35.0 Const: General: no acute distress and confusion Nutritional Appearance: average body habitus Orientation/consciousness: confusion Resp: Effort & Inspection: normal respiratory effort GI: Other: Wounds are clean and intact. Ostomy functioning well, bag full of stool. Neuro: General: confusion Extrem: General: Yes pedal edema Objective Data Active Medications Acetaminophen (Acetaminophen 325 Mg Tablet) 650 mg PO Q6H PRN PRN Reason: Pain, Moderate(Pain Scale 4-6) Last Admin: 12/19/24 12:15 Dose: 650 mg Documented By: EMIL Dextrose (Dextrose 50 % 25 Gm/50 Ml Syringe) 25 gm IVPUSH Q15M PRN; Protocol PRN Reason: per Hypoglycemia Standing Ord. Dextrose (Dextrose 50 % 25 Gm/50 Ml Syringe) 25 gm IVPUSH Q15M PRN PRN Reason: per Hypoglycemia Standing Ord. Famotidine (Famotidine/Pf 20 Mg/2 Ml Vial) 20 mg IVPUSH DAILY [facility] Last Admin: 12/20/24 08:37 Dose: 20 mg Documented By: ALEX Glucose (Glucose Gel 15 Gm Gel..Gram.) 15 gm PO Q15M PRN; Protocol PRN Reason: per Hypoglycemia Standing Ord. Heparin Sodium (Porcine) (Heparin Sodium,Porcine 5,000 Unit/Ml Vial) 5,000 unit SUBCUT Q8H [facility] Last Admin: 12/20/24 10:23 Dose: 5,000 unit Documented By: ALEX Hydrocortisone (Hydrocortisone 1 % Cream 28.35 Gm Tube) 1 appl TOPICAL BID [facility]; Protocol Last Admin: 12/20/24 08:38 Dose: 1 appl Documented By: ALEX Metronidazole (Flagyl) 500 mg in 100 mls @ 100 mls/hr IV Q8H [facility] Last Admin: 12/20/24 10:23 Dose: 100 mls/hr Documented By: ALEX Caspofungin 50 mg/ Sodium (Chloride) 250 mls @ 250 mls/hr IV Q24H [facility] Last Infusion: 12/20/24 10:37 Dose: Infused Documented By: ALEX Insulin Glargine (Insulin Glargine,Hum.Rec.Anlog 100 Unit/Ml 10 Ml Vial) 20 unit SUBCUT DAILY [facility] Last Admin: 12/20/24 08:36 Dose: 20 unit Documented By: ALEX Insulin Human Lispro (Insulin Lispro 100 Unit/Ml 3 Ml Vial) 0 unit SUBCUT QIDACHS [facility]; Protocol Last Admin: 12/20/24 07:27 Dose: Not Given Documented By: ALEX Non-Admin Reason: No Insulin Coverage Magnesium Hydroxide (Milk Of Magnesia 30 Ml Oral.Susp) 30 ml PO DAILY PRN PRN Reason: Constipation Melatonin (Melatonin 3 Mg Tablet) 6 mg PO BEDTIME PRN PRN Reason: Insomnia Meropenem (Meropenem 1 Gm Vial) 1 gm IVPUSH Q8H [facility] Last Admin: 12/20/24 02:48 Dose: 1 gm Documented By: AUSTIN Naloxone HCl (Naloxone Hcl 0.4 Mg/Ml Vial) 0.2 mg IVPUSH Q2M PRN PRN Reason: Excessive sedation or RR < 8 Oxycodone HCl (Oxycodone Hcl Immed Release 5 Mg Tablet) 5 mg PO Q6H PRN PRN Reason: Pain, Severe (Pain Scale 7-10) Last Admin: 12/19/24 16:38 Dose: 5 mg Documented By: EMIL Pharmacy Consult (Consult Rx Parenteral Nutrition Ordering) 1 each MISCELLANE DAILY PRN PRN Reason: Consult order Sodium Chloride (0.9 % Sodium Chloride Flush 3 Ml Syringe) 3 ml IVFLUSH QSHIFT [facility] Last Admin: 12/20/24 08:37 Dose: 3 ml Documented By: ALEX Labs 12/20/24 07:09 12/20/24 07:09 Labs: Laboratory Results - last 24 hr 12/19/24 12/19/2412/19/25 11:36 16:30 20:30 MCV MCH MCHC RDW Plt Count MPV Immature Gran % (Auto) Neut % (Auto) Lymph % (Auto) [place] % (Auto) Eos % (Auto) Baso % (Auto) Lymph # (Auto) [place] # (Auto) Eos # (Auto) Baso # (Auto) Abs Immat Gran (auto) Absolute Neuts (auto) Absolute Nucleated RBC Nucleated RBC % (auto) Anion Gap Estim Creat Clear Calc Estimated GFR POC Glucose 114 110 103 Random Glucose Calcium 12/20/24 12/20/24 07:09 07:18 MCV 78.6 L MCH 24.5 L MCHC 31.2 RDW 22.1 H Plt Count 595 H MPV 10.0 Immature Gran % (Auto) 3.2 H Neut % (Auto) 74.9 H Lymph % (Auto) 9.5 L [place] % (Auto) 7.7 Eos % (Auto) 4.1 H Baso % (Auto) 0.6 Lymph # (Auto) 1.6 [place] # (Auto) 1.3 H Eos # (Auto) 0.7 H Baso # (Auto) 0.1 Abs Immat Gran (auto) 0.53 H Absolute Neuts (auto) 12.3 H Absolute Nucleated RBC 0.070 H Nucleated RBC % (auto) 0.4 H Anion Gap 12 Estim Creat Clear Calc 135.2 Estimated GFR > 60 POC Glucose 102 Random Glucose 100 Calcium 8.2 L Procedures Date of Service Date of Service: 12/20/24 Progress Note: A&P Assessment and plan (1) Carcinoma of sigmoid colon: Status: Acute (2) Metastatic colon cancer to liver: Status: Acute (3) S/P colostomy: Status: Acute (4) Perforated viscus: Status: Acute (5) Peritonitis: Status: Acute Plan 54-year-old male with 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 Patient's respiratory status appears to be improving in his only on nasal O2 at this time. He is tolerating ensure with the thickener without abdominal pain, nausea or vomiting. Abdomen is soft with stool in his bag. Continue IV antibiotics. Monitor p.o. intake. H&H improved today, no evidence of ongoing bleeding Time Spent With Patient Time: Total time managing care of this patient today ____ minutes. Quality Stroke Does the patient have a stroke diagnosis?: No VTE Prior VTE?: No VTE Risk Level:: Medical - moderate - high VTE Device Contraindication: N/A - Device Ordered VTE Drug Contraindication: N/A - Med Ordered
[2024-12-20 11:37] LABS: Glucose, Whole Blood 129 mg/dL (60-115)
[2024-12-20 12:00] VITALS: BP 128/70; PULSE 80; RESP 20; TEMP 37.3; O2SAT 97
[2024-12-20 16:00] VITALS: BP 125/75; PULSE 86; RESP 18; TEMP 36.2; O2SAT 96
[2024-12-20 16:40] LABS: Glucose, Whole Blood 125 mg/dL (60-115)
[2024-12-20 20:00] VITALS: BP 132/81; PULSE 89; RESP 20; TEMP 36.7; O2SAT 95
[2024-12-20 20:54] LABS: Glucose, Whole Blood 118 mg/dL (60-115)
[2024-12-21] VITALS (8 sets, daily range): BP systolic 110–131; BP diastolic 73–82; PULSE 76–141; RESP 17–20; TEMP 36.6–37.3; O2SAT 95–98; BMI 35.0
[2024-12-21] MEDS: 0.9 % Sodium Chloride Flush 3 ML SYRINGE IVFLUSH ×3 (00:24→15:27)
[2024-12-21] MEDS: metroNIDAZOLE/NS 500 MG/100 ML PIGGYBACK 100 MG IV ×3 (01:14→17:29)
[2024-12-21] MEDS: oxyCODONE HCl Immed Release 5 MG TABLET PO (04:33)
[2024-12-21 07:16] LABS: Glucose, Whole Blood 90 mg/dL (60-115)
--- NOTE | 2024-12-21 07:48 | P.PNGS_ITS ---
Subjective Subjective Date of Service: 12/22/24 <Amy Alaniz PA-C - Last Filed: 12/22/24 08:16> 12/22/24 <Bam Collazo MD - Last Filed: 12/22/24 08:52> Interval history: Transferred from ICU to [facility] telemetry over the weekend. No events over the weekend. Tolerating ensure with thickener without nausea or vomiting. On nasal O2 currently. <Amy Alaniz PA-C - Last Filed: 12/22/24 08:16> Physical Exam 2 Vital Signs: Vital Signs: Last Vital Signs Temp 98.1 F 12/21/24 07:06 Pulse 81 12/21/24 07:06 Resp 20 12/21/24 07:06 BP 128/81 12/21/24 07:06 Pulse Ox 96 12/21/24 07:06 O2 Del Method Nasal Cannula 12/21/24 07:06 O2 Flow Rate 4 12/21/24 07:06 FiO2 43.0 12/19/24 07:04 BMI result Body Mass Index 35.0 <Amy Alaniz PA-C - Last Filed: 12/22/24 08:16> Const: General: no acute distress and alert <Amy Alaniz PA-C - Last Filed: 12/22/24 08:16> Orientation/consciousness: patient oriented x3 <Amy Alaniz PA-C - Last Filed: 12/22/24 08:16> Resp: Effort & Inspection: not labored and not tachypneic <Amy Alaniz PA-C - Last Filed: 12/22/24 08:16> GI: Other: ostomy with large amount of stool output LEÓN drain with leeanne purulent output midline incision dressing dry and intact <Amy Alaniz PA-C - Last Filed: 12/22/24 08:16> Palpation (GI): Soft to palpation <JYOTI Madrigal Last Filed: 12/22/24 08:16> Neuro: General: patient oriented x3 <JYOTI Madrigal Last Filed: 12/22/24 08:16> Objective Data Active Medications Acetaminophen (Acetaminophen 325 Mg Tablet) 650 mg PO Q6H PRN PRN Reason: Pain, Moderate(Pain Scale 4-6) Last Admin: 12/19/24 12:15 Dose: 650 mg Documented By: EMIL Dextrose (Dextrose 50 % 25 Gm/50 Ml Syringe) 25 gm IVPUSH Q15M PRN; Protocol PRN Reason: per Hypoglycemia Standing Ord. Dextrose (Dextrose 50 % 25 Gm/50 Ml Syringe) 25 gm IVPUSH Q15M PRN PRN Reason: per Hypoglycemia Standing Ord. Famotidine (Famotidine/Pf 20 Mg/2 Ml Vial) 20 mg IVPUSH DAILY [facility] Last Admin: 12/20/24 08:37 Dose: 20 mg Documented By: ALEX Glucose (Glucose Gel 15 Gm Gel..Gram.) 15 gm PO Q15M PRN; Protocol PRN Reason: per Hypoglycemia Standing Ord. Heparin Sodium (Porcine) (Heparin Sodium,Porcine 5,000 Unit/Ml Vial) 5,000 unit SUBCUT Q8H [facility] Last Admin: 12/21/24 01:15 Dose: 5,000 unit Documented By: RICHIE Hydrocortisone (Hydrocortisone 1 % Cream 28.35 Gm Tube) 1 appl TOPICAL BID [facility]; Protocol Last Admin: 12/20/24 20:15 Dose: 1 appl Documented By: RICHIE Metronidazole (Flagyl) 500 mg in 100 mls @ 100 mls/hr IV Q8H [facility] Last Infusion: 12/21/24 02:40 Dose: Infused Documented By: RICHIE Caspofungin 50 mg/ Sodium (Chloride) 250 mls @ 250 mls/hr IV Q24H [facility] Last Infusion: 12/20/24 10:37 Dose: Infused Documented By: ALEX Insulin Glargine (Insulin Glargine,Hum.Rec.Anlog 100 Unit/Ml 10 Ml Vial) 20 unit SUBCUT DAILY [facility] Last Admin: 12/20/24 08:36 Dose: 20 unit Documented By: ALEX Insulin Human Lispro (Insulin Lispro 100 Unit/Ml 3 Ml Vial) 0 unit SUBCUT QIDACHS [facility]; Protocol Last Admin: 12/20/24 21:03 Dose: Not Given Documented By: RICHIE Non-Admin Reason: No Insulin Coverage Magnesium Hydroxide (Milk Of Magnesia 30 Ml Oral.Susp) 30 ml PO DAILY PRN PRN Reason: Constipation Melatonin (Melatonin 3 Mg Tablet) 6 mg PO BEDTIME PRN PRN Reason: Insomnia Meropenem (Meropenem 1 Gm Vial) 1 gm IVPUSH Q8H [facility] Last Admin: 12/21/24 02:34 Dose: 1 gm Documented By: RICHIE Naloxone HCl (Naloxone Hcl 0.4 Mg/Ml Vial) 0.2 mg IVPUSH Q2M PRN PRN Reason: Excessive sedation or RR < 8 Oxycodone HCl (Oxycodone Hcl Immed Release 5 Mg Tablet) 5 mg PO Q6H PRN PRN Reason: Pain, Severe (Pain Scale 7-10) Last Admin: 12/21/24 04:33 Dose: 5 mg Documented By: RICHIE Pharmacy Consult (Consult Rx Parenteral Nutrition Ordering) 1 each MISCELLANE DAILY PRN PRN Reason: Consult order Sodium Chloride (0.9 % Sodium Chloride Flush 3 Ml Syringe) 3 ml IVFLUSH QSHIFT [facility] Last Admin: 12/21/24 00:24 Dose: 3 ml Documented By: RICHIE <Amy Alaniz PA-C - Last Filed: 12/22/24 08:16> Labs CBC & Chem 7: 12/22/24 06:21 12/22/24 06:21 <Amy Alaniz PA-C - Last Filed: 12/22/24 08:16> Labs: Laboratory Results - last 24 hr 12/20/24 12/20/24 12/20/24 11:29 16:10 20:32 POC Glucose 129 H 125 H 118 H 12/21/24 07:13 POC Glucose 90 <Amy Alaniz PA-C - Last Filed: 12/22/24 08:16> Procedures Date of Service Date of Service: 12/22/24 <Amy Alaniz PA-C - Last Filed: 12/22/24 08:16> 12/22/24 <Bam Collazo MD - Last Filed: 12/22/24 08:52> Progress Note: A&P Assessment and plan (1) S/P colostomy: Status: Acute <Amy Alaniz PA-C - Last Filed: 12/22/24 08:16> Assessment and Plan: No events over the weekend On thick liquids and appears to be tolerating this Remains on meropenem and Flagyl Drain showing then drainage although scanty Follow CBC Physical therapy Abdomen is soft and benign Stoma functioning well Seen and examined independently <Bam Collazo MD - Last Filed: 12/22/24 08:52> (2) Perforated viscus: Status: Acute <Amy Alaniz PA-C - Last Filed: 12/22/24 08:16> Assessment and Plan: Cont diet as tolerated. Ostomy with good output. LEÓN now with leeanne purulent drainage, keep drain in place. Will repeat CBC tomorrow given persistent elevation. On IV merepenem, flagyl and capsofungin. ID following. Hospitalists following. PT consulted last week, will need STR when medically cleared for discharge, ?possibly later this week. <Amy Alaniz PA-C - Last Filed: 12/22/24 08:16> Time Spent With Patient Time: Total time managing care of this patient today ____ minutes. <Amy Alaniz PA-C - Last Filed: 12/22/24 08:16> Quality Stroke Does the patient have a stroke diagnosis?: No <Amy Alaniz PA-C - Last Filed: 12/22/24 08:16> VTE Prior VTE?: No <Amy Alaniz PA-C - Last Filed: 12/22/24 08:16> VTE Risk Level:: Medical - moderate - high <Amy Alaniz PA-C - Last Filed: 12/22/24 08:16> VTE Device Contraindication: N/A - Device Ordered <Amy Alaniz PA-C - Last Filed: 12/22/24 08:16> VTE Drug Contraindication: N/A - Med Ordered <Amy Alaniz PA-C - Last Filed: 12/22/24 08:16>
--- NOTE | 2024-12-21 08:51 | HO.PM.IMPN ---
Subjective Subjective Date of Service: 12/21/24 Interval History: No new issues, feels better, denies SI Physical Exam Vital Signs: Vital Signs: Last Vital Signs Temp 98.1 F 12/21/24 07:06 Pulse 81 12/21/24 07:06 Resp 20 12/21/24 07:06 BP 128/81 12/21/24 07:06 Pulse Ox 96 12/21/24 07:06 O2 Del Method Nasal Cannula 12/21/24 07:06 O2 Flow Rate 4 12/21/24 07:06 FiO2 43.0 12/19/24 07:04 BMI result Body Mass Index 35.0 Const: Other: General: Deppressed Resp: CTA bilateral CVS: S1,S2,RRR, some swelling in legs GI: +BS, NT, no distention, ostomy in place Skin: No rash Neuro: motor grossly intact Psych: appropriate affect Objective Data Active Medications Acetaminophen (Acetaminophen 325 Mg Tablet) 650 mg PO Q6H PRN PRN Reason: Pain, Moderate(Pain Scale 4-6) Last Admin: 12/19/24 12:15 Dose: 650 mg Documented By: EMIL Dextrose (Dextrose 50 % 25 Gm/50 Ml Syringe) 25 gm IVPUSH Q15M PRN; Protocol PRN Reason: per Hypoglycemia Standing Ord. Dextrose (Dextrose 50 % 25 Gm/50 Ml Syringe) 25 gm IVPUSH Q15M PRN PRN Reason: per Hypoglycemia Standing Ord. Famotidine (Famotidine/Pf 20 Mg/2 Ml Vial) 20 mg IVPUSH DAILY [facility] Last Admin: 12/20/24 08:37 Dose: 20 mg Documented By: ALEX Glucose (Glucose Gel 15 Gm Gel..Gram.) 15 gm PO Q15M PRN; Protocol PRN Reason: per Hypoglycemia Standing Ord. Heparin Sodium (Porcine) (Heparin Sodium,Porcine 5,000 Unit/Ml Vial) 5,000 unit SUBCUT Q8H [facility] Last Admin: 12/21/24 01:15 Dose: 5,000 unit Documented By: RICHIE Hydrocortisone (Hydrocortisone 1 % Cream 28.35 Gm Tube) 1 appl TOPICAL BID [facility]; Protocol Last Admin: 12/20/24 20:15 Dose: 1 appl Documented By: RICHIE Metronidazole (Flagyl) 500 mg in 100 mls @ 100 mls/hr IV Q8H [facility] Last Infusion: 12/21/24 02:40 Dose: Infused Documented By: RICHIE Caspofungin 50 mg/ Sodium (Chloride) 250 mls @ 250 mls/hr IV Q24H [facility] Last Infusion: 12/20/24 10:37 Dose: Infused Documented By: ALEX Insulin Glargine (Insulin Glargine,Hum.Rec.Anlog 100 Unit/Ml 10 Ml Vial) 20 unit SUBCUT DAILY [facility] Last Admin: 12/20/24 08:36 Dose: 20 unit Documented By: ALEX Insulin Human Lispro (Insulin Lispro 100 Unit/Ml 3 Ml Vial) 0 unit SUBCUT QIDACHS [facility]; Protocol Last Admin: 12/20/24 21:03 Dose: Not Given Documented By: RICHIE Non-Admin Reason: No Insulin Coverage Magnesium Hydroxide (Milk Of Magnesia 30 Ml Oral.Susp) 30 ml PO DAILY PRN PRN Reason: Constipation Melatonin (Melatonin 3 Mg Tablet) 6 mg PO BEDTIME PRN PRN Reason: Insomnia Meropenem (Meropenem 1 Gm Vial) 1 gm IVPUSH Q8H [facility] Last Admin: 12/21/24 02:34 Dose: 1 gm Documented By: RICHIE Naloxone HCl (Naloxone Hcl 0.4 Mg/Ml Vial) 0.2 mg IVPUSH Q2M PRN PRN Reason: Excessive sedation or RR < 8 Oxycodone HCl (Oxycodone Hcl Immed Release 5 Mg Tablet) 5 mg PO Q6H PRN PRN Reason: Pain, Severe (Pain Scale 7-10) Last Admin: 12/21/24 04:33 Dose: 5 mg Documented By: RICHIE Pharmacy Consult (Consult Rx Parenteral Nutrition Ordering) 1 each MISCELLANE DAILY PRN PRN Reason: Consult order Sodium Chloride (0.9 % Sodium Chloride Flush 3 Ml Syringe) 3 ml IVFLUSH QSHIFT [facility] Last Admin: 12/21/24 00:24 Dose: 3 ml Documented By: RICHIE Labs 12/21/24 09:33 12/21/24 09:33 Labs: Laboratory Results - last 24 hr 12/20/24 12/20/24 12/20/24 11:29 16:10 20:32 POC Glucose 129 H 125 H 118 H 12/21/24 07:13 POC Glucose 90 Assessment and Plan (1) Diverticulitis of colon with perforation: Status: Acute (2) Peritonitis: Status: Acute Plan 54M PMH 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 Hospital course further complicated by anemia, Cdif Perforated colon with peritonitis, sepsis s/p colostomy on 11/16 peritoneal fluis has grown klebsiela, julieth, strep viridan, ecoli, bacillus and pseudomonas he has been on multiple Abx current on Flagyl, meropenem and caspofungus, E. coli and B. Fragilis bacteremia on presenation Flagyl and meropenem as above For now ID recommends Meropenen,metronidazole and caspofungin, and Augmentin ID [facility] Paroxysmal AFIB, presently in sinus, was treated with amiodarone, afib probably triggered by sepsis Had echo earlier in November, not candidate for anticoagulation given profound anemia Anemia likely from combination of chronic disease, colon cancer H/H is somehow low but stable, continue to monitor and only transfuse if hgb is less than 7 Colon cancer, outpatient follow up with oncology mild to modrate malnutrition, supplement Hyperglycemia? diabetes on lantus, check A1Cn 6.8 diabetic diet and sliding scale insulin ? SI/pt is just depressed d/t ongoing medical issues with no intention to harm self, continue monitoring, consider psych consult no indication for continuous cardiac monitoring at this time DVT prophylaxis: Heparin Full Code No longer needs Quality Stroke Does the patient have a stroke diagnosis?: No VTE Prior VTE?: No VTE Risk Level:: Medical - moderate - high VTE Device Contraindication: N/A - Device Ordered VTE Drug Contraindication: N/A - Med Ordered
[2024-12-21] MEDS: Insulin Glargine,Hum.rec.anlog 100 UNIT/ML 10 ML VIAL 20 UNIT SUBCUT (09:27)
[2024-12-21] MEDS: Hydrocortisone 1 % Cream 28.35 GM TUBE 1 APPL TOPICAL ×2 (09:36→21:37)
[2024-12-21 09:40] LABS: Hematocrit 25.0 % (42.0-52.0); Hemoglobin 7.8 g/dl (14.0-18.0); Mean Corpuscular HGB Conc 31.2 g/dl (31.0-36.0); Mean Corpuscular Hemoglobin 24.7 pg (27.0-33.0); Mean Corpuscular Volume 79.1 fL (80.0-98.0); NRBC Abs Auto 0.030 X10*3/uL (0.0-0.012); NRBC Pct Auto 0.2 /100WBC (0.0-0.2); Platelet Count 552 X10*3/uL (160-400); Red Blood Count 3.16 X10*6/uL (4.60-5.80); White Blood Count 15.1 X10*3/uL (4.8-10.8)
[2024-12-21 10:10] LABS: Anion Gap 10 (12-20); Blood Urea Nitrogen 24 mg/dL (9-16); Calcium 8.2 mg/dL (8.4-10.2); Carbon Dioxide 24 mmol/L (22-29); Chloride 112 mmol/L (96-108); Creatinine Clr Calc Pharmacy 139.4; Estimated Glomerular Filt Rate > 60; Potassium 3.7 mmol/L (3.3-5.1); Sodium 142 mmol/L (135-145)
[2024-12-21 11:45] LABS: Glucose, Whole Blood 116 mg/dL (60-115)
--- NOTE | 2024-12-21 11:56 | MHC.SL.SWA ---
Speech Pathologist Impression: Moderate pharyngeal dysphagia secondary to recent extubation, persistent weakness Risk of Aspiration Due to: Aphonia Poor glottal closure Overt s/s of aspiration with thins Dysphasia Diet Status: Recommend PUREE (NDD1) with NECTAR THICK liquids, pillls crushed in puree, 1-1 feed, liquids by tsp or controlled cup sip. Ice chips permitted for oral hydration. Monitor respiratory status during feeding. Liquid Consistency and Strategies for Safe Swallow: Liquid Intake Recommendation: [place] Thick Liquid Intake Strategies: Small Sips Solid Food Consistency: Dietary Recommendations: Pureed (NDD1) Additional Modifications to Solid Foods: 1-1 Liquids by tsp or controlled cup sip (no straws). Discontinue with any clinical signs of aspiration, including drop in 02 saturation, coughing; and if patient significantly fatigues or presents as fatigued. Alternate liquids and solids Oral Medication Intake: Crushed with Puree Please contact the pharmacy regarding appropriate crushable or liquid drug formulations that are available whenever modified delivery is recommended. Compensatory Strategies and Precautions to be Taken for Safe Swallow: Sitting Upright (90 deg) No Straw Liquids from Spoon Small Bites and Sips Alternate Liquids/Solids Rate of Ingestion Change Oral Check Supervision While Eating and Drinking for Safe Swallow: Total Assistance (1:1) Foods to Avoid: Mixed consistencies. Swallowing Recommended Treatments: Compens. Strategy Educat. Recommendation for Speech: Further Testing Needed Comment: Pt seen for dysphagia treatment/re-assessment 12/21. Pt sitting upright in bed, on 3L O2 via NC. Pt remains aphonic, c/o mouth feeling dry. Pt fatigued easily this morning. Pt trialed with ice chips and sips of thin liquids (water only). Pt tolerated ice chips with adequate oropharyngeal coordination, no observed s/s of aspiration. Pt coughed s/p sips of water. Pt too fatigued to have further PO. DIRECTOR OF HOUSING AND ENERGY SERVICES recc ice chips for oral hydration, no changes to diet at this time. DIRECTOR OF HOUSING AND ENERGY SERVICES will continue re-assessing daily. Frequency/Duration: Date Range for Service Req: Timeline to reassess: Vice President [employer]anth[employer] Clinican/Clinical Fellow: No Supervisory Statement: I have reviewed and agree with the student/clinical fellow's documentation: N/A Speech Language Pathologist: Pat Palma M.S., CCC-DIRECTOR OF HOUSING AND ENERGY SERVICES
--- NOTE | 2024-12-21 14:22 | MHC.CLN ---
F/U DIET=DIABETIC 2000 KCALS, PUREE WITH NECTAR THICK LIQUIDS. VARIABLE PO INTAKE, 0-75%. SKIN WITH DTI TO SACRUM AND DTI TO OCCIPUT. ENSURE MAX BID TO PROMOTE WOUND HEALING. SUPPLEMENT PROVIDES 300 KCALS, 60 G PROTEIN. FOLLOW FOR DIET TOLERANCE, PO INTAKE, AND SKIN INTEGRITY.
[2024-12-21 16:22] LABS: Glucose, Whole Blood 133 mg/dL (60-115)
[2024-12-21 20:55] LABS: Glucose, Whole Blood 129 mg/dL (60-115)
[2024-12-22] VITALS (24 sets, daily range): BP systolic 75–151; BP diastolic 44–91; PULSE 40–150; RESP 14–18; TEMP 35–37.4; O2SAT 91–100
[2024-12-22] MEDS: metroNIDAZOLE/NS 500 MG/100 ML PIGGYBACK 100 MG IV ×3 (01:13→19:14)
[2024-12-22 06:42] LABS: Hematocrit 25.0 % (42.0-52.0); Hemoglobin 7.7 g/dl (14.0-18.0); Mean Corpuscular HGB Conc 30.8 g/dl (31.0-36.0); Mean Corpuscular Hemoglobin 24.5 pg (27.0-33.0); Mean Corpuscular Volume 79.6 fL (80.0-98.0); NRBC Abs Auto 0.040 X10*3/uL (0.0-0.012); NRBC Pct Auto 0.3 /100WBC (0.0-0.2); Platelet Count 522 X10*3/uL (160-400); Red Blood Count 3.14 X10*6/uL (4.60-5.80); White Blood Count 14.8 X10*3/uL (4.8-10.8)
[2024-12-22 06:46] LABS: Anion Gap 10 (12-20); Blood Urea Nitrogen 22 mg/dL (9-16); Calcium 8.2 mg/dL (8.4-10.2); Carbon Dioxide 25 mmol/L (22-29); Chloride 110 mmol/L (96-108); Creatinine Clr Calc Pharmacy 141.6; Estimated Glomerular Filt Rate > 60; Potassium 3.4 mmol/L (3.3-5.1); Sodium 142 mmol/L (135-145)
[2024-12-22 07:07] LABS: Glucose, Whole Blood 100 mg/dL (60-115)
--- NOTE | 2024-12-22 08:17 | P.PNGS_ITS ---
Subjective Subjective Date of Service: 12/22/24 <Amy Alaniz PA-C - Last Filed: 12/22/24 08:22> 12/22/24 <Bam Collazo MD - Last Filed: 12/22/24 08:51> Interval history: Asking for water, c/o being thirsty. On nectar thick liquids per speech. C/o voice hoarseness. <Amy Alaniz PA-C - Last Filed: 12/22/24 08:22> Physical Exam 2 Vital Signs: Vital Signs: Last Vital Signs Temp 98.0 F 12/22/24 07:01 Pulse 82 12/22/24 07:01 Resp 18 12/22/24 07:01 BP 118/77 12/22/24 07:01 Pulse Ox 97 12/22/24 07:01 O2 Del Method Nasal Cannula 12/22/24 07:01 O2 Flow Rate 2 12/22/24 07:01 FiO2 95 12/22/24 04:00 BMI result Body Mass Index 35.0 <Amy Alaniz PA-C - Last Filed: 12/22/24 08:22> Const: General: alert <Amy Alaniz PA-C - Last Filed: 12/22/24 08:22> Orientation/consciousness: patient oriented x3 <JYOTI Madrigal Last Filed: 12/22/24 08:22> Resp: Other: some increased work of breathing <Amy Alaniz PA-C - Last Filed: 12/22/24 08:22> GI: Other: abd soft midline incision with purulent drainage from inferior aspect- open wound of incision inferiorly with fascia visible, fascia currently intact LEÓN drain with purulent drainage ostomy with soft stool output <Amy Alaniz PA-C - Last Filed: 12/22/24 08:22> Skin: Other: diaphoretic <JYOTI Madrigal Last Filed: 12/22/24 08:22> Neuro: General: patient oriented x3 and moves all extremities <JYOTI Madrigal Last Filed: 12/22/24 08:22> Objective Data Active Medications Acetaminophen (Acetaminophen 325 Mg Tablet) 650 mg PO Q6H PRN PRN Reason: Pain, Moderate(Pain Scale 4-6) Last Admin: 12/19/24 12:15 Dose: 650 mg Documented By: EMIL Dextrose (Dextrose 50 % 25 Gm/50 Ml Syringe) 25 gm IVPUSH Q15M PRN; Protocol PRN Reason: per Hypoglycemia Standing Ord. Dextrose (Dextrose 50 % 25 Gm/50 Ml Syringe) 25 gm IVPUSH Q15M PRN PRN Reason: per Hypoglycemia Standing Ord. Famotidine (Famotidine/Pf 20 Mg/2 Ml Vial) 20 mg IVPUSH DAILY [facility] Last Admin: 12/21/24 09:26 Dose: 20 mg Documented By: BERNABE Glucose (Glucose Gel 15 Gm Gel..Gram.) 15 gm PO Q15M PRN; Protocol PRN Reason: per Hypoglycemia Standing Ord. Heparin Sodium (Porcine) (Heparin Sodium,Porcine 5,000 Unit/Ml Vial) 5,000 unit SUBCUT Q8H [facility] Last Admin: 12/22/24 01:20 Dose: 5,000 unit Documented By: MARIA ISABEL Hydrocortisone (Hydrocortisone 1 % Cream 28.35 Gm Tube) 1 appl TOPICAL BID [facility]; Protocol Last Admin: 12/21/24 21:37 Dose: 1 appl Documented By: MARIA ISABEL Metronidazole (Flagyl) 500 mg in 100 mls @ 100 mls/hr IV Q8H [facility] Last Infusion: 12/22/24 02:16 Dose: Infused Documented By: MARIA ISABEL Caspofungin 50 mg/ Sodium (Chloride) 250 mls @ 250 mls/hr IV Q24H [facility] Last Infusion: 12/21/24 11:35 Dose: Infused Documented By: BERNABE Insulin Glargine (Insulin Glargine,Hum.Rec.Anlog 100 Unit/Ml 10 Ml Vial) 20 unit SUBCUT DAILY [facility] Last Admin: 12/21/24 09:27 Dose: 20 unit Documented By: BERNABE Insulin Human Lispro (Insulin Lispro 100 Unit/Ml 3 Ml Vial) 0 unit SUBCUT QIDACHS [facility]; Protocol Last Admin: 12/21/24 20:35 Dose: Not Given Documented By: MARIA ISABEL Non-Admin Reason: No Insulin Coverage Lorazepam (Lorazepam 1 Mg Tablet) 1 mg PO TID PRN PRN Reason: Anxiety Last Admin: 12/21/24 11:43 Dose: 1 mg Documented By: BERNABE Magnesium Hydroxide (Milk Of Magnesia 30 Ml Oral.Susp) 30 ml PO DAILY PRN PRN Reason: Constipation Melatonin (Melatonin 3 Mg Tablet) 6 mg PO BEDTIME PRN PRN Reason: Insomnia Last Admin: 12/22/24 01:20 Dose: 6 mg Documented By: MARIA ISABEL Meropenem (Meropenem 1 Gm Vial) 1 gm IVPUSH Q8H [facility] Last Admin: 12/22/24 02:41 Dose: 1 gm Documented By: MARIA ISABEL Naloxone HCl (Naloxone Hcl 0.4 Mg/Ml Vial) 0.2 mg IVPUSH Q2M PRN PRN Reason: Excessive sedation or RR < 8 Oxycodone HCl (Oxycodone Hcl Immed Release 5 Mg Tablet) 5 mg PO Q6H PRN PRN Reason: Pain, Severe (Pain Scale 7-10) Last Admin: 12/21/24 04:33 Dose: 5 mg Documented By: RICHIE Pharmacy Consult (Consult Rx Parenteral Nutrition Ordering) 1 each MISCELLANE DAILY PRN PRN Reason: Consult order Sodium Chloride (0.9 % Sodium Chloride Flush 3 Ml Syringe) 3 ml IVFLUSH QSHIFT [facility] Last Admin: 12/22/24 00:00 Dose: Not Given Documented By: MARIA ISABEL Non-Admin Reason: Previously Administered <Amy Alaniz PA-C - Last Filed: 12/22/24 08:22> Labs CBC & Chem 7: 12/22/24 06:21 12/22/24 06:21 <Amy Alaniz PA-C - Last Filed: 12/22/24 08:22> Labs: Laboratory Results - last 24 hr 12/18/24 12/21/24 12/21/24 04:20 09:33 11:37 MCV 79.1 L MCH 24.7 L MCHC 31.2 RDW 22.4 H Plt Count 552 H MPV 9.8 Absolute Nucleated RBC 0.030 H Nucleated RBC % (auto) 0.2 Smear Path Review SEE NOTE Anion Gap 10 L Estim Creat Clear Calc 139.4 Estimated GFR > 60 POC Glucose 116 H Random Glucose 142 H Calcium 8.2 L 07/01/0812/21/24 12/22/24 16:17 20:35 06:21 MCV 79.6 L MCH 24.5 L MCHC 30.8 L RDW 22.9 H Plt Count 522 H MPV 10.1 Absolute Nucleated RBC 0.040 H Nucleated RBC % (auto) 0.3 H Smear Path Review Anion Gap 10 L Estim Creat Clear Calc 141.6 Estimated GFR > 60 POC Glucose 133 H 129 H Random Glucose 103 Calcium 8.2 L 12/22/24 07:03 MCV MCH MCHC RDW Plt Count MPV Absolute Nucleated RBC Nucleated RBC % (auto) Smear Path Review Anion Gap Estim Creat Clear Calc Estimated GFR POC Glucose 100 Random Glucose Calcium <Amy Alaniz PA-C - Last Filed: 12/22/24 08:22> Procedures Date of Service Date of Service: 12/22/24 <Amy Alaniz PA-C - Last Filed: 12/22/24 08:22> 12/22/24 <Bam Collazo MD - Last Filed: 12/22/24 08:51> Progress Note: A&P Assessment and plan (1) S/P colostomy: Status: Acute <Amy Alaniz PA-C - Last Filed: 12/22/24 08:22> Assessment and Plan: Denies new complaints Tolerating diet Oral intake marginal Stoma functioning well LEÓN drain with purulent output Abdomen soft and benign Packing in place for skin separation Push p.o. intake IV antibiotics May benefit from repeat swallow eval down the line so he can have regular diet Seen and examined independently <Bam Collazo MD - Last Filed: 12/22/24 08:51> (2) Perforated viscus: Status: Acute <Amy Alaniz PA-C - Last Filed: 12/22/24 08:22> Assessment and Plan: Cont diet as tolerated and as recommended by speech therapy. Ostomy with good output. LEÓN now with leeanne purulent drainage and same drainage from incision, keep drain in place. Cont daily wound care- open wound at inferior incision packed with wet to dry fluff- fascia visible but intact. CBC slightly improved this morning. On IV merepenem, flagyl and capsofungin. ID following. Hospitalists following. PT consulted last week, will need STR when medically cleared for discharge. <Amy Alaniz PA-C - Last Filed: 12/22/24 08:22> Time Spent With Patient Time: Total time managing care of this patient today ____ minutes. <Amy Alaniz PA-C - Last Filed: 12/22/24 08:22> Quality Stroke Does the patient have a stroke diagnosis?: No <Amy Alaniz PA-C - Last Filed: 12/22/24 08:22> VTE Prior VTE?: No <Amy Alaniz PA-C - Last Filed: 12/22/24 08:22> VTE Risk Level:: Medical - moderate - high <Amy Alaniz PA-C - Last Filed: 12/22/24 08:22> VTE Device Contraindication: N/A - Device Ordered <Amy Alaniz PA-C - Last Filed: 12/22/24 08:22> VTE Drug Contraindication: N/A - Med Ordered <Amy Alaniz PA-C - Last Filed: 12/22/24 08:22>
[2024-12-22] MEDS: 0.9 % Sodium Chloride Flush 3 ML SYRINGE IVFLUSH ×2 (09:41→15:41)
[2024-12-22] MEDS: Insulin Glargine,Hum.rec.anlog 100 UNIT/ML 10 ML VIAL 20 UNIT SUBCUT (09:41)
[2024-12-22 10:01] LABS: Glucose, Whole Blood 125 mg/dL (60-115)
--- NOTE | 2024-12-22 11:52 | HO.PM.IMPN ---
Subjective Subjective Date of Service: 12/22/24 Interval History: No new issues, feels better, denies SI voice is very low and asking if it will get better Physical Exam Vital Signs: Vital Signs: Last Vital Signs Temp 98.1 F 12/22/24 11:09 Pulse 105 H 12/22/24 11:09 Resp 18 12/22/24 11:09 BP 112/72 12/22/24 11:09 Pulse Ox 99 12/22/24 11:09 O2 Del Method Nasal Cannula 12/22/24 11:09 O2 Flow Rate 2 12/22/24 11:09 FiO2 95 12/22/24 04:00 BMI result Body Mass Index 35.0 Const: Other: General: Deppressed Resp: CTA bilateral CVS: S1,S2,RRR, some swelling in legs GI: +BS, NT, no distention, ostomy in place Skin: No rash Neuro: motor grossly intact Psych: appropriate affect Objective Data Active Medications Acetaminophen (Acetaminophen 325 Mg Tablet) 650 mg PO Q6H PRN PRN Reason: Pain, Moderate(Pain Scale 4-6) Last Admin: 12/19/24 12:15 Dose: 650 mg Documented By: EMIL Dextrose (Dextrose 50 % 25 Gm/50 Ml Syringe) 25 gm IVPUSH Q15M PRN; Protocol PRN Reason: per Hypoglycemia Standing Ord. Famotidine (Famotidine/Pf 20 Mg/2 Ml Vial) 20 mg IVPUSH DAILY [facility] Last Admin: 12/22/24 09:41 Dose: 20 mg Documented By: MISAEL Glucose (Glucose Gel 15 Gm Gel..Gram.) 15 gm PO Q15M PRN; Protocol PRN Reason: per Hypoglycemia Standing Ord. Heparin Sodium (Porcine) (Heparin Sodium,Porcine 5,000 Unit/Ml Vial) 5,000 unit SUBCUT Q8H [facility] Last Admin: 12/22/24 10:16 Dose: 5,000 unit Documented By: MISAEL Hydrocortisone (Hydrocortisone 1 % Cream 28.35 Gm Tube) 1 appl TOPICAL BID [facility]; Protocol Last Admin: 12/22/24 09:41 Dose: Not Given Documented By: MISAEL Non-Admin Reason: Patient Refused Metronidazole (Flagyl) 500 mg in 100 mls @ 100 mls/hr IV Q8H [facility] Last Infusion: 12/22/24 11:08 Dose: Infused Documented By: BERNABE Caspofungin 50 mg/ Sodium (Chloride) 250 mls @ 250 mls/hr IV Q24H [facility] Last Admin: 12/22/24 10:15 Dose: 250 mls/hr Documented By: MISAEL Insulin Glargine (Insulin Glargine,Hum.Rec.Anlog 100 Unit/Ml 10 Ml Vial) 20 unit SUBCUT DAILY [facility] Last Admin: 12/22/24 09:41 Dose: 20 unit Documented By: MISAEL Insulin Human Lispro (Insulin Lispro 100 Unit/Ml 3 Ml Vial) 0 unit SUBCUT QIDACHS [facility]; Protocol Last Admin: 12/22/24 11:39 Dose: Not Given Documented By: BERNABE Non-Admin Reason: No Insulin Coverage Lorazepam (Lorazepam 1 Mg Tablet) 1 mg PO TID PRN PRN Reason: Anxiety Last Admin: 12/21/24 11:43 Dose: 1 mg Documented By: BERNABE Magnesium Hydroxide (Milk Of Magnesia 30 Ml Oral.Susp) 30 ml PO DAILY PRN PRN Reason: Constipation Melatonin (Melatonin 3 Mg Tablet) 6 mg PO BEDTIME PRN PRN Reason: Insomnia Last Admin: 12/22/24 01:20 Dose: 6 mg Documented By: MARIA ISABEL Meropenem (Meropenem 1 Gm Vial) 1 gm IVPUSH Q8H [facility] Last Admin: 12/22/24 11:38 Dose: 1 gm Documented By: MISAEL Naloxone HCl (Naloxone Hcl 0.4 Mg/Ml Vial) 0.2 mg IVPUSH Q2M PRN PRN Reason: Excessive sedation or RR < 8 Oxycodone HCl (Oxycodone Hcl Immed Release 5 Mg Tablet) 5 mg PO Q6H PRN PRN Reason: Pain, Severe (Pain Scale 7-10) Last Admin: 12/21/24 04:33 Dose: 5 mg Documented By: RICHIE Pharmacy Consult (Consult Rx Parenteral Nutrition Ordering) 1 each MISCELLANE DAILY PRN PRN Reason: Consult order Sodium Chloride (0.9 % Sodium Chloride Flush 3 Ml Syringe) 3 ml IVFLUSH QSHIFT [facility] Last Admin: 12/22/24 09:41 Dose: 3 ml Documented By: MISAEL Labs 12/22/24 14:44 12/22/24 14:44 Labs: Laboratory Results - last 24 hr 12/21/24 12/21/24 12/22/24 16:17 20:35 06:21 MCV 79.6 L MCH 24.5 L MCHC 30.8 L RDW 22.9 H Plt Count 522 H MPV 10.1 Absolute Nucleated RBC 0.040 H Nucleated RBC % (auto) 0.3 H Anion Gap 10 L Estim Creat Clear Calc 141.6 Estimated GFR > 60 POC Glucose 133 H 129 H Random Glucose 103 Calcium 8.2 L 12/22/24 12/22/24 07:03 09:53 MCV MCH MCHC RDW Plt Count MPV Absolute Nucleated RBC Nucleated RBC % (auto) Anion Gap Estim Creat Clear Calc Estimated GFR POC Glucose 100 125 H Random Glucose Calcium Assessment and Plan (1) Diverticulitis of colon with perforation: Status: Acute (2) Peritonitis: Status: Acute Plan 54M PMH 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 Hospital course further complicated by anemia, Cdif Perforated colon with peritonitis, sepsis s/p colostomy on 11/16 peritoneal fluis has grown klebsiela, julieth, strep viridan, ecoli, bacillus and pseudomonas he has been on multiple Abx current on Flagyl, meropenem and caspofungus, E. coli and B. Fragilis bacteremia on presentation Flagyl and meropenem as above For now ID recommends Meropenen, metronidazole and caspofungin, and Augmentin ID [facility] Paroxysmal AFIB, presently in sinus, was treated with amiodarone, afib probably triggered by sepsis Had echo earlier in November, not candidate for anticoagulation given profound anemia Back in AFIB today with RVR, add metoprolol if not controlled, get cardiology Anemia likely from combination of chronic disease, colon cancer H/H is somehow low but stable, continue to monitor and only transfuse if hgb is less than 7 Colon cancer, outpatient follow up with oncology mild to moderate malnutrition, supplement Hyperglycemia? diabetes on lantus, check A1Cn 6.8 diabetic diet and sliding scale insulin ? SI/pt is just depressed d/t ongoing medical issues with no intention to harm self, continue monitoring, consider psych consult he is denying SI at this time, so hold sitter no indication for continuous cardiac monitoring at this time DVT prophylaxis: Heparin Full Code No longer needs Quality Stroke Does the patient have a stroke diagnosis?: No VTE Prior VTE?: No VTE Risk Level:: Medical - moderate - high VTE Device Contraindication: N/A - Device Ordered VTE Drug Contraindication: N/A - Med Ordered
[2024-12-22 11:57] LABS: Glucose, Whole Blood 111 mg/dL (60-115)
--- NOTE | 2024-12-22 11:58 | PC.NURSE ---
cardiac rhythm afib HR 150 at first that down to 110's , still in afib HR fluctuating from 120's 150' , Dr Foreman was notified , per MD no EKG is necessary at this time , new medication ordered Metoprolol 25 mg PO QID . Pt tolerated Sarastedy in am for transfer from bed to chair . Due to elevation in HR , pt was transferred to bed via lori lift.
--- NOTE | 2024-12-22 13:03 | HO.WOUND ---
Addendum entered by Brenda Escalona RN 12/23/24 14:14: 12/23/24 @1400 Attempting to coordinate assessment with Dr. Wright for possible bedside debridement. She is agreeable to Santyl after discussion and chart review. Orders updated below. Recommendations: 1. Turn and Reposition every 2 hours and as needed for patient comfort.? Use pillows or wedges to support off loading positions. 2. Off Load all bony prominences with use of pillows and heel boots if needed.? Apply Preventative foams where needed. ? 3. Monitor for incontinence and moisture control, use barrier creams when needed for prevention and treatment. 4. Provide adequate and supplemental nutrition.? 5. Continue low air loss mattress. 6. When applicable maintain blood glucose levels per Providers order. Occiput - Off Load Pressure with Q2 hr turns and use of Mizuho pillow - Cleanse with PH balance spray or wipes, pat dry. ?May leave SADIA at this time as it continues to resolve. Sacrum - Off Load Pressure with Q2 hr turns and use of pillows - Cleanse with PH balance spray or wipes, pat dry. ?Apply barrier to the immediate priyanka wound, apply thick layer of Santyl to entire wound bed, cover with saline moist gauze, cover with dry gauze, ABD pad, change Daily. Midline - Gently cleanse with NS moist gauze, lightly pack midline with saline wet gauze, cover with dry gauze and ABD pad. Change daily and reinforce as needed. Original Note: Wound Consult: Follow up 54 yr old?male admitted to [facility] on 12/05/24 - See progress notes and H&P for detailed history.? Wound consult follow up for sacral area, Abdomen and Occiput.? Patient was recently transferred out of ICU level of care. Patient remains weak with a complex hospital admission - see provider notes for details of admission. ? Will need STR placement when cleared for d/c. Of note the patient has a new ostomy created this admission. He is not ready or appropriate for teaching at this time - continues with weakness and difficulty concentrating. Stoma - red moist almost flat to skin level. Pouch changed today without issue template left at bedside cute to oval [id number] flat 1 piece [id number] coloplast - peristomal tissue remains intact - there is a small area of necrotic tissue noted at 6 o'clock - treated with Brava Strip Paste to aid in moist wound healing and autolytic debridement. Will follow along for osotmy teaching readiness. 12/16/24 12/22/24 Sacrum Etiology: ?Deep tissue Injury ? Wound Bed: continues to evolve areas of improvement noted- central area is in evolution Drainage / Odor: none noted at this time Edges: ? irregular Priyanka wound: ?dark red pink tissue - slow to maxwell tissue - No Induration, Fluctuance or Warmth noted Goals of Treatment: ? off load pressure consider switching to Medihoney or Santly or debridement Dr. Wright to consult and assess wound bed for expert opinion. 12/16/24 Post clipping 12/22/24 Occiput Etiology: Resolving Deep Tissue injury ? Wound Bed: improving drying epidermal layer maroon purple nonblanchable tissue remains but improving Drainage / Odor: None Edges: ? irregular Priyanka wound: intact tissue No Induration, Fluctuance or Warmth noted Goals of Treatment: ? May leave open to air - routine hair care washing and brushing Midline - Surgical Site - Dehiscence ??No updated photo - Surgery Managing - with wet to moist dressing - see note from today 12/22/24 - will defer topical care to General Surgery Team will discontinue dressing orders as no longer needed Iodosorb per general surg note today 12/22/24. Surgical Site - Dehiscence ?? New topical order below: Midline - Gently cleanse with NS, Lightly pack wound with saline wet gauze, cover with dry gauze and ABD pad. Change daily and reinforce as needed. Recommendations: 1. Turn and Reposition every 2 hours and as needed for patient comfort.? Use pillows or wedges to support off loading positions. 2. Off Load all bony prominences with use of pillows and heel boots if needed.? Apply Preventative foams where needed. ? 3. Monitor for incontinence and moisture control, use barrier creams when needed for prevention and treatment. 4. Provide adequate and supplemental nutrition.? 5. Continue low air loss mattress. 6. When applicable maintain blood glucose levels per Providers order. Occiput - Off Load Pressure with Q2 hr turns and use of Mizuho pillow - Cleanse with PH balance spray or wipes, pat dry. ?May leave SADIA at this time as it continues to resolve. Sacrum - Off Load Pressure with Q2 hr turns and use of pillows - Cleanse with PH balance spray or wipes, pat dry. ?Apply thin layer of Triad to wound bed. Do not remove all of paste between applications as this may cause further skin damage.? Cover with foam dressing to aid in off loading and protection from friction. Change every day. Midline - Gently cleanse with NS moist gauze, lightly pack midline with saline wet gauze, cover with dry gauze and ABD pad. Change daily and reinforce as needed. Re-consult wound care Nurse for wound deterioration or wound changes.
--- NOTE | 2024-12-22 13:07 | PC.NURSE ---
cardiac rhytm : back to NSR HR 80's
[2024-12-22 14:51] LABS: Hematocrit 25.2 % (42.0-52.0); Hemoglobin 7.9 g/dl (14.0-18.0); Mean Corpuscular HGB Conc 31.3 g/dl (31.0-36.0); Mean Corpuscular Hemoglobin 24.9 pg (27.0-33.0); Mean Corpuscular Volume 79.5 fL (80.0-98.0); NRBC Abs Auto 0.020 X10*3/uL (0.0-0.012); NRBC Pct Auto 0.1 /100WBC (0.0-0.2); Platelet Count 499 X10*3/uL (160-400); Red Blood Count 3.17 X10*6/uL (4.60-5.80); White Blood Count 15.6 X10*3/uL (4.8-10.8)
--- NOTE | 2024-12-22 14:52 | MHC.SLORD ---
Speech Language Pathology Order Status: GAMING SURVEILLANCE OBSERVER attempted to see pt in afternoon multiple times; pt sound asleep. Per RN, pt had been given meds that may have made him extra lethargic. Reportedly pt tolerating current GAMING SURVEILLANCE OBSERVER recommendation of NDD1/NT, however pt does not like thickened liquids. Pt will be seen tomorrow AM by GAMING SURVEILLANCE OBSERVER.
[2024-12-22 15:04] LABS: Anion Gap 9 (12-20); Blood Urea Nitrogen 19 mg/dL (9-16); Calcium 8.0 mg/dL (8.4-10.2); Carbon Dioxide 26 mmol/L (22-29); Chloride 109 mmol/L (96-108); Creatinine Clr Calc Pharmacy 135.2; Estimated Glomerular Filt Rate > 60; Potassium 3.7 mmol/L (3.3-5.1); Sodium 140 mmol/L (135-145)
[2024-12-22 15:15] LABS: Glucose, Whole Blood 113 mg/dL (60-115)
[2024-12-22 15:44] LABS: ABG HCO3 26 mmol/L (22-26); ABG O2 % Saturation 99.0 %
[2024-12-22 16:03] LABS: Glucose, Whole Blood 115 mg/dL (60-115)
--- NOTE | 2024-12-22 16:03 | PC.NURSE ---
pt did not wake up when the nurse talked to him. he did not open his eyes, no response to pain stimuli. When the nurse checked the pt's abdominal suture, it was covered by brown discharge. Rapid response was called. BP120/74, HR83 SpO2 95% on 2LNC. Pt was intubated with 7.5mm ET tube. pt was transferred to ICU.
[2024-12-22] MEDS: Etomidate 20 MG/10 ML VIAL IVPUSH (16:07)
--- NOTE | 2024-12-22 16:08 | P.CNPS_ITS ---
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 required intuabation and mechanical ventilation in ICU with prolong course and has now been on High[facility]lo. Hospital course further complicated by anemia, Cdif. Psychiatric consult placed for: depression, med management During psychiatric assessment, pt was sedated and unable to be woken up for assessment. Charge nurse notified, who also attempted to awaken patient. Dr. Foreman notified by charge nurse of patient's current status. Unable to perform psychiatric assessment at this time. Psychiatric team will re-attempt to assess patient when patient is alert. Past Psychiatric History: unable to assess d/t pt mental status. [facility] Medical History Perforated viscus Anemia No pertinent past medical history Surgical History History of liver biopsy Hx of right knee surgery (~2010) Diagnostics Vital Signs (24Hr): Vital Signs - 24 hr 12/21/24 20:00 12/21/24 21:42 12/22/24 00:00 Temperature 99.1 F 98.9 F Pulse Rate 141 H 87 89 Respiratory Rate 17 16 Blood Pressure 110/75 120/75 Pulse Oximetry 95 96 Oxygen Delivery Method Nasal Cannula Nasal Cannula Oxygen Flow Rate 2 3 Fraction of Inspired Oxygen 12/22/24 04:00 12/22/24 07:01 12/22/24 09:45 Temperature 97.1 F 98.0 F 97.8 F Pulse Rate 81 82 112 H Respiratory Rate 18 18 18 Blood Pressure 123/76 118/77 111/63 Pulse Oximetry 95 97 98 Oxygen Delivery Method Nasal Cannula Nasal Cannula Nasal Cannula Oxygen Flow Rate 3 2 2.5 Fraction of Inspired Oxygen 95 12/22/24 09:45 12/22/24 11:09 12/22/24 15:15 Temperature 98.1 F 97.8 F Pulse Rate 150 H 105 H 83 Respiratory Rate 18 18 Blood Pressure 112/72 123/76 Pulse Oximetry 99 97 Oxygen Delivery Method Nasal Cannula Nasal Cannula Oxygen Flow Rate 2 2.5 Fraction of Inspired Oxygen BMI result Body Mass Index 35.0 Labs 12/22/24 14:44 12/22/24 14:44 Labs: Laboratory Results - last 48 hr 12/18/24 12/20/24 12/20/24 04:20 16:10 20:32 WBC RBC Hgb Hct MCV MCH MCHC RDW Plt Count MPV Absolute Nucleated RBC Nucleated RBC % (auto) Smear Path Review SEE NOTE O2 Saturation ABG pH at Pt Temp ABG pCO2 at Pt Temp ABG pO2 at Pt Temp ABG HCO3 ABG Base Excess (Actual) Sodium Potassium Chloride Carbon Dioxide Anion Gap BUN Creatinine Estim Creat Clear Calc Estimated GFR POC Glucose 125 H 118 H Random Glucose Calcium 12/21/24 12/21/24 12/21/24 07:13 09:33 11:37 WBC 15.1 H RBC 3.16 L Hgb 7.8 L Hct 25.0 L MCV 79.1 L MCH 24.7 L MCHC 31.2 RDW 22.4 H Plt Count 552 H MPV 9.8 Absolute Nucleated RBC 0.030 H Nucleated RBC % (auto) 0.2 Smear Path Review O2 Saturation ABG pH at Pt Temp ABG pCO2 at Pt Temp ABG pO2 at Pt Temp ABG HCO3 ABG Base Excess (Actual) Sodium 142 Potassium 3.7 Chloride 112 H Carbon Dioxide 24 Anion Gap 10 L BUN 24 H Creatinine 0.65 Estim Creat Clear Calc 139.4 Estimated GFR > 60 POC Glucose 90 116 H Random Glucose 142 H Calcium 8.2 L 12/21/24 12/21/24 12/22/24 16:17 20:35 06:21 WBC 14.8 H RBC 3.14 L Hgb 7.7 L Hct 25.0 L MCV 79.6 L MCH 24.5 L MCHC 30.8 L RDW 22.9 H Plt Count 522 H MPV 10.1 Absolute Nucleated RBC 0.040 H Nucleated RBC % (auto) 0.3 H Smear Path Review O2 Saturation ABG pH at Pt Temp ABG pCO2 at Pt Temp ABG pO2 at Pt Temp ABG HCO3 ABG Base Excess (Actual) Sodium 142 Potassium 3.4 Chloride 110 H Carbon Dioxide 25 Anion Gap 10 L BUN 22 H Creatinine 0.64 Estim Creat Clear Calc 141.6 Estimated GFR > 60 POC Glucose 133 H 129 H Random Glucose 103 Calcium 8.2 L 12/22/24 12/22/24 12/22/24 07:03 09:53 11:52 WBC RBC Hgb Hct MCV MCH MCHC RDW Plt Count MPV Absolute Nucleated RBC Nucleated RBC % (auto) Smear Path Review O2 Saturation ABG pH at Pt Temp ABG pCO2 at Pt Temp ABG pO2 at Pt Temp ABG HCO3 ABG Base Excess (Actual) Sodium Potassium Chloride Carbon Dioxide Anion Gap BUN Creatinine Estim Creat Clear Calc Estimated GFR POC Glucose 100 125 H 111 Random Glucose Calcium 12/22/24 12/22/24 12/22/24 14:44 15:11 15:40 WBC 15.6 H RBC 3.17 L Hgb 7.9 L Hct 25.2 L MCV 79.5 L MCH 24.9 L MCHC 31.3 RDW 22.8 H Plt Count 499 H MPV 9.3 L Absolute Nucleated RBC 0.020 H Nucleated RBC % (auto) 0.1 Smear Path Review O2 Saturation 99.0 ABG pH at Pt Temp 7.48 H ABG pCO2 at Pt Temp 35 ABG pO2 at Pt Temp 99 ABG HCO3 26 ABG Base Excess (Actual) 3.7 Sodium 140 Potassium 3.7 Chloride 109 H Carbon Dioxide 26 Anion Gap 9 L BUN 19 H Creatinine 0.67 Estim Creat Clear Calc 135.2 Estimated GFR > 60 POC Glucose 113 Random Glucose 111 Calcium 8.0 L 12/22/24 15:59 WBC RBC Hgb Hct MCV MCH MCHC RDW Plt Count MPV Absolute Nucleated RBC Nucleated RBC % (auto) Smear Path Review O2 Saturation ABG pH at Pt Temp ABG pCO2 at Pt Temp ABG pO2 at Pt Temp ABG HCO3 ABG Base Excess (Actual) Sodium Potassium Chloride Carbon Dioxide Anion Gap BUN Creatinine Estim Creat Clear Calc Estimated GFR POC Glucose 115 Random Glucose Calcium Imaging Radiology Impressions: ITS Impressions Abdomen/Pelvis CT 12/11/24 09:54 IMPRESSION: 1. Status post sigmoid resection with right lower quadrant colostomy formation since the prior study. 2. Diffuse infiltration of the mesenteric fat consistent with the clinical history of peritonitis. 3.6 x 2.9 x 3.8 cm fluid collection in the right midabdomen and 6.4 x 5.2 x 5.8 cm fluid collection in the left midabdomen which could represent abscesses. Evaluation is limited by lack of intravenous and oral contrast material. 3. Hepatic lesions as seen previously, suspicious for metastatic disease. 2.4 cm soft tissue mass in the left lower quadrant without change, suspicious for metastatic disease. 4. Airspace opacity at both lung bases, consistent with atelectasis or pneumonia. Small bilateral pleural effusions. Electronically signed by: Valentin Doyle MD 12/11/2024 11:03 AM EDT RP Chest X-Ray 12/14/24 07:50 IMPRESSION: 1. Right-sided port and orogastric tube without change. No endotracheal tube is identified on these images. If there is an endotracheal tube in place, a repeat study to include the lower neck is suggested. Alternatively, the endotracheal tube could be advanced and a repeat chest x-ray could be performed. 2. Opacification of the left lung base which may represent atelectasis or pneumonia. Probable small left pleural effusion. Electronically signed by: Valentin Doyle MD 12/14/2024 08:10 AM EDT RP Mental Status Exam Mental Status Exam Narrative: unable to obtain mental status d/t patient sedated. Medications Medications Current Medications Acetaminophen (Acetaminophen 325 Mg Tablet) 650 mg PO Q6H PRN PRN Reason: Pain, Moderate(Pain Scale 4-6) Last Admin: 12/19/24 12:15 Dose: 650 mg Dextrose (Dextrose 50 % 25 Gm/50 Ml Syringe) 25 gm IVPUSH Q15M PRN; Protocol PRN Reason: per Hypoglycemia Standing Ord. Famotidine (Famotidine/Pf 20 Mg/2 Ml Vial) 20 mg IVPUSH DAILY [facility] Last Admin: 12/22/24 09:41 Dose: 20 mg Glucose (Glucose Gel 15 Gm Gel..Gram.) 15 gm PO Q15M PRN; Protocol PRN Reason: per Hypoglycemia Standing Ord. Heparin Sodium (Porcine) (Heparin Sodium,Porcine 5,000 Unit/Ml Vial) 5,000 unit SUBCUT Q8H [facility] Last Admin: 12/22/24 10:16 Dose: 5,000 unit Hydrocortisone (Hydrocortisone 1 % Cream 28.35 Gm Tube) 1 appl TOPICAL BID [facility]; Protocol Last Admin: 12/22/24 09:41 Dose: Not Given Metronidazole (Flagyl) 500 mg in 100 mls @ 100 mls/hr IV Q8H [facility] [place] Last Infusion: 12/22/24 11:08 Dose: Infused Caspofungin 50 mg/ Sodium (Chloride) 250 mls @ 250 mls/hr IV Q24H [facility] [place] Last Infusion: 12/22/24 11:55 Dose: Infused Insulin Glargine (Insulin Glargine,Hum.Rec.Anlog 100 Unit/Ml 10 Ml Vial) 20 unit SUBCUT DAILY [facility] [place] Last Admin: 12/22/24 09:41 Dose: 20 unit Insulin Human Lispro (Insulin Lispro 100 Unit/Ml 3 Ml Vial) 0 unit SUBCUT QIDACHS [facility] [place]; Protocol Last Admin: 12/22/24 15:39 Dose: Not Given Lorazepam (Lorazepam 1 Mg Tablet) 1 mg PO TID PRN PRN Reason: Anxiety Last Admin: 12/22/24 12:19 Dose: 1 mg Magnesium Hydroxide (Milk Of Magnesia 30 Ml Oral.Susp) 30 ml PO DAILY PRN PRN Reason: Constipation Melatonin (Melatonin 3 Mg Tablet) 6 mg PO BEDTIME PRN PRN Reason: Insomnia Last Admin: 12/22/24 01:20 Dose: 6 mg Meropenem (Meropenem 1 Gm Vial) 1 gm IVPUSH Q8H [facility] [place] Last Admin: 12/22/24 11:38 Dose: 1 gm Metoprolol Tartrate (Metoprolol Tartrate 25 Mg Tablet) 25 mg PO QID [facility] [place]; Protocol Last Admin: 12/22/24 11:57 Dose: 25 mg Naloxone HCl (Naloxone Hcl 0.4 Mg/Ml Vial) 0.2 mg IVPUSH Q2M PRN PRN Reason: Excessive sedation or RR < 8 Oxycodone HCl (Oxycodone Hcl Immed Release 5 Mg Tablet) 5 mg PO Q6H PRN PRN Reason: Pain, Severe (Pain Scale 7-10) Last Admin: 12/21/24 04:33 Dose: 5 mg Pharmacy Consult (Consult Rx Parenteral Nutrition Ordering) 1 each MISCELLANE DAILY PRN PRN Reason: Consult order Sodium Chloride (0.9 % Sodium Chloride Flush 3 Ml Syringe) 3 ml IVFLUSH QSHIFT [facility] [place] Last Admin: 12/22/24 15:41 Dose: 3 ml Allergies Allergies Allergy/AdvReac Type Severity Reaction Status Date / Time No Known Allergies Allergy Verified 12/05/24 14:57 Assessment & Plan Assessment & Plan (1) Encounter before starting medication: Status: Acute Code(s): Z76.89 - Persons encountering health services in other specified circumstances Plan Unable to perform psychiatric assessment at this time d/t sedation. Dr. Foreman notified. Psychiatric team will re-attempt to assess patient when patient is alert. Total time managing care of this patient today _20___ minutes. Patient educated on: other (unable to educate d/t mental status)
--- NOTE | 2024-12-22 16:18 | PM.EVENT ---
Event Note Date of Service: 12/22/24 Event Note: The patient was noted to become more somnolent this afternoon Was therefore intubated Brought back to the ICU Etiology of lens uncertain although patient has been getting Ativan Thick pus from drain and incision noted - gauze packing applied Wound with skin separation on the midline Abdomen remains soft and benign ICU care Possibly rescan the abdomen tomorrow I updated his cousin Ashia Discussed with ICU staff Time Spent With Patient Time: Total time managing care of this patient today ____ minutes.
--- NOTE | 2024-12-22 16:18 | PM.EVENT ---
Event Note Date of Service: 12/22/24 Event Note: Patient became increasingly unresponsive, however vital signs stable, he had received ativan earlier but has been getting it all along, ABG showed mild alklalosis otherwise unremarkable. He was also having incrasing leakage of stool from the abdominal wound, rapid response, Surgeon at bedside, patient was been intubated for airway protection. He might need abdominal reeploration. Labs CBC, BMP earlier have been stable. Time Spent With Patient Time: Total time managing care of this patient today ____ minutes.
--- NOTE | 2024-12-22 16:29 | PM.EVENT ---
Event Note Date of Service: 12/23/24 Event Note: The patient was noted to become more somnolent this afternoon Was therefore intubated Brought back to the ICU Etiology of somnolence is uncertain although patient has been getting Ativan Thick pus from drain and incision noted - gauze packing applied Wound with large skin separation on the midline Abdomen remains soft and benign ICU care Possibly rescan the abdomen tomorrow I updated his cousin Ashia Appears to have stable vital signs in the ED, on ventilator now Discussed with ICU staff Time Spent With Patient Time: Total time managing care of this patient today ____ minutes.
--- NOTE | 2024-12-22 16:29 | W.PM.CCCN ---
History of Present Illness Data of Consult Service Date: 12/22/24 Primary Care Provider: Unknown Physician HPI Reason for consult: Unresponsiveness 54-year-old gentleman with past medical history of stage IV colon cancer on chemotherapy initially admitted to the hospital on 12/05/2024 secondary to perforated sigmoid colon with pericolic abscess underwent emergent ex laparotomy with extensive lysis of addition, sigmoid resection and loop transverse colostomy with abdominal lavage and 2 drains placed intubated for the procedure and admitted to ICU. He was eventually extubated and transferred to floor. Blood culture and peritoneal fluid cultures were growing Klebsiella, E coli, bacillus, Pseudomonas. He is being treated with meropenem, Flagyl, caspofungin. This afternoon patient became overly drowsy and eventually unresponsive, so rapid response was called he is intubated and placed on ventilator support Review of Systems Review of Systems: Unable to obtain as patient is intubated PMFSH Past Medical History Medical History Perforated viscus Anemia No pertinent past medical history Family History Family History Maternal Grandmother Heart attack Family history: reviewed and not pertinent Surgical History Surgical History History of liver biopsy Hx of right knee surgery (~2010) Social History Social History Household Members: Unknown / Unable to assess Housing: Unknown / Unable to assess Are you a primary wound care technician to a significant other at home: No Do you presently have visiting nurse or other home services: No Comment: 1:1 sitter Patient Tobacco Use Status: Never used Tobacco Currently Displaying Signs/Symptoms of Drug Intoxication Withdrawal: No Advance Directives: No Advance Directives Information Provided: No Do you have a plan to hurt others: No Plan Recently lost weight without trying: No Eating poorly because of decreased appetite: No Nutrition Risks: No Nutritional Risk Poor oral hygiene: Yes service: No Current occupational status: unemployed Current occupation: Right hand dominate Meds Allergies Allergy/AdvReac Type Severity Reaction Status Date / Time No Known Allergies Allergy Verified 12/05/24 14:57 Active Medications: Current Medications Acetaminophen (Acetaminophen 325 Mg Tablet) 650 mg PO Q6H PRN PRN Reason: Pain, Moderate(Pain Scale 4-6) Last Admin: 12/19/24 12:15 Dose: 650 mg Dextrose (Dextrose 50 % 25 Gm/50 Ml Syringe) 25 gm IVPUSH Q15M PRN; Protocol PRN Reason: per Hypoglycemia Standing Ord. Famotidine (Famotidine/Pf 20 Mg/2 Ml Vial) 20 mg IVPUSH DAILY [facility] Last Admin: 12/22/24 09:41 Dose: 20 mg Glucose (Glucose Gel 15 Gm Gel..Gram.) 15 gm PO Q15M PRN; Protocol PRN Reason: per Hypoglycemia Standing Ord. Heparin Sodium (Porcine) (Heparin Sodium,Porcine 5,000 Unit/Ml Vial) 5,000 unit SUBCUT Q8H [facility] Last Admin: 12/22/24 10:16 Dose: 5,000 unit Hydrocortisone (Hydrocortisone 1 % Cream 28.35 Gm Tube) 1 appl TOPICAL BID [facility]; Protocol Last Admin: 12/22/24 09:41 Dose: Not Given Metronidazole (Flagyl) 500 mg in 100 mls @ 100 mls/hr IV Q8H [facility] Last Infusion: 12/22/24 11:08 Dose: Infused Caspofungin 50 mg/ Sodium (Chloride) 250 mls @ 250 mls/hr IV Q24H [facility] Last Infusion: 12/22/24 11:55 Dose: Infused Insulin Glargine (Insulin Glargine,Hum.Rec.Anlog 100 Unit/Ml 10 Ml Vial) 20 unit SUBCUT DAILY [facility] Last Admin: 12/22/24 09:41 Dose: 20 unit Insulin Human Lispro (Insulin Lispro 100 Unit/Ml 3 Ml Vial) 0 unit SUBCUT QIDACHS [facility]; Protocol Last Admin: 12/22/24 15:39 Dose: Not Given Lorazepam (Lorazepam 1 Mg Tablet) 1 mg PO TID PRN PRN Reason: Anxiety Last Admin: 12/22/24 12:19 Dose: 1 mg Magnesium Hydroxide (Milk Of Magnesia 30 Ml Oral.Susp) 30 ml PO DAILY PRN PRN Reason: Constipation Melatonin (Melatonin 3 Mg Tablet) 6 mg PO BEDTIME PRN PRN Reason: Insomnia Last Admin: 12/22/24 01:20 Dose: 6 mg Meropenem (Meropenem 1 Gm Vial) 1 gm IVPUSH Q8H [facility] Last Admin: 12/22/24 11:38 Dose: 1 gm Metoprolol Tartrate (Metoprolol Tartrate 25 Mg Tablet) 25 mg PO QID [facility]; Protocol Last Admin: 12/22/24 11:57 Dose: 25 mg Naloxone HCl (Naloxone Hcl 0.4 Mg/Ml Vial) 0.2 mg IVPUSH Q2M PRN PRN Reason: Excessive sedation or RR < 8 Oxycodone HCl (Oxycodone Hcl Immed Release 5 Mg Tablet) 5 mg PO Q6H PRN PRN Reason: Pain, Severe (Pain Scale 7-10) Last Admin: 12/21/24 04:33 Dose: 5 mg Pharmacy Consult (Consult Rx Parenteral Nutrition Ordering) 1 each MISCELLANE DAILY PRN PRN Reason: Consult order Sodium Chloride (0.9 % Sodium Chloride Flush 3 Ml Syringe) 3 ml IVFLUSH [facility] Last Admin: 12/22/24 15:41 Dose: 3 ml Home Medications ?Medication ?Instructions ?Recorded ?Confirmed ?Last Taken ?Type dexamethasone 4 mg tablet 4 mg PO BID PRN x2 days after 12/06/24 12/06/24 Unknown History chemotherapy Physical Exam Vital Signs: Vital Signs: Last Vital Signs Temp 97.8 F 12/22/24 15:15 Pulse 83 12/22/24 15:15 Resp 18 12/22/24 15:15 BP 123/76 12/22/24 15:15 Pulse Ox 97 12/22/24 15:15 O2 Del Method Nasal Cannula 12/22/24 15:15 O2 Flow Rate 2.5 12/22/24 15:15 FiO2 95 12/22/24 04:00 BMI result Body Mass Index 35.0 General: Middle-aged male in acute distress, ill appearing and tired appearing Nutritional Appearance: well nourished and overweight Eyes: appearance normal, both eyes and all related structures; Alignment and Position: alignment normal and position normal Neck: No lymphadenopathy, no thyromegaly Resp: bilateral air entry equal, occasional added sounds present Cardio: Regular rate, regular rhythm; Heart sounds: S1 normal heart sound present and S2 normal heart sound present GI: soft, no guarding or rigidity, multiple drains present draining pus : bladder normal to inspection, bladder normal to palpation, no renal angle tenderness Skin: no rashes or lesions noted and elasticity normal Neuro: Unresponsive, pupillary reflex present Results Labs 12/22/24 14:44 12/22/24 14:44 Labs: Short CBC 12/22/24 12/22/24 Range/Units 06:21 14:44 WBC 14.8 H 15.6 H (4.8-10.8) X10*3/uL Hgb 7.7 L 7.9 L (14.0-18.0) g/dl Hct 25.0 L 25.2 L (42.0-52.0) % Plt Count 522 H 499 H (160-400) X10*3/uL BMP 12/22/24 12/22/24 06:21 14:44 Sodium 142 140 Potassium 3.4 3.7 Chloride 110 H 109 H Carbon Dioxide 25 26 BUN 22 H 19 H Creatinine 0.64 0.67 Calcium 8.2 L 8.0 L Microbiology Microbiology Results: Microbiology 12/09/24 08:54 Gastric Fluid Gram Stain - Final 12/09/24 08:54 Gastric Fluid Anaerobic Culture - Final 12/09/24 08:54 Gastric Fluid Body Fluid Culture - Final Klebsiella pneumoniae Flavia species Viridans streptococcus group 12/05/24 20:15 Peritoneal Fluid Gram Stain - Final 12/05/24 20:15 Peritoneal Fluid Routine Culture - Final Klebsiella pneumoniae Escherichia coli Bacillus species Pseudomonas species 12/05/24 20:15 Peritoneal Fluid Anaerobic Culture - Final 12/05/24 16:52 Blood - Venous Blood Culture - Final Escherichia coli Bacteroides fragilis group 12/05/24 16:52 Blood - Venous Blood Culture - Final Escherichia coli Bacteroides fragilis group Assessment and Plan (1) Atrial fibrillation with tachycardic ventricular rate: Status: Acute (2) Colonic mass: Status: Acute (3) Diverticulitis of colon with perforation: Status: Acute (4) E coli bacteremia: Status: Acute (5) Acute hypoxemic respiratory failure: Status: Acute Plan Neuro: Acute encephalopathy possibly due to metabolic encephalopathy from severe sepsis On propofol for sedation, fentanyl drip for analgesia Close neurological status monitoring in the ICU every hour Cardiac: Cardiogenic Shock: Possibly secondary to positive pressure ventilation On Levophed support, titrate Levophed to keep map above 65 mm Hg We will trend lactate, we will get blood cultures, we will give him 30 mL/kg of LR bolus Paroxysmal atrial fibrillation: Treated with amiodarone Currently in sinus rhythm Not on anticoagulation due to anemia Respiratory: Acute hypoxemic respiratory failure due to poor respiratory efforts from encephalopathy Currently on ventilator support On PRVC mode FiO 30%, PEEP 5, TV400, RR 20 Peak pressures and plateau pressures are under the curve Ventilator management bundle with head end elevation, aspiration precaution, chlorhexidine mouthwash, daily awakening trials, daily spontaneous breathing trials GI: Stage IV colon cancer with sigmoid colon perforation, status post ex laparotomy, drain draining pus We will get CT abdomen and pelvis to look for any occult collection Renal: renal function normal We will closely monitor I's and O's Avoid nephrotoxic medications Heme: Chronic anemia, closely monitor H&H, transfuse for hemoglobin less than 7 grams/deciliter Endocrine: Diabetes mellitus, HbA1c 6.8 Sliding scale insulin as needed Infectious disease: peritoneal fluid growing klebsiela, flavia, strep viridan, ecoli, bacillus and pseudomonas he has been on multiple Abx current on Flagyl, meropenem and caspofungin, ID recommendation is for Meropenem, metronidazole, caspofungin, Augmentin, and Flagyl for 2 weeks at [facility] Musculoskeletal: Decubitus ulcer prevention protocol Lines: peripheral Male [place] Prophylaxis: Heparin, pantoprazole Critical care time spent is about 60 minutes on attending the rapid response, stabilizing the patient, stabilizing airway, post intubation care, ventilator management, changing ventilator settings, sedation management, close hemodynamic monitoring, vasopressor management, review of labs, review of imaging at this time is excluding any procedural time
[2024-12-22] MEDS: fentaNYL citrate/NS 1,000 MCG/100 ML PLAST..BAG 2.5 MCG IVCONT (16:30)
[2024-12-22 16:58] LABS: Hematocrit 26.9 % (42.0-52.0); Hemoglobin 8.2 g/dl (14.0-18.0); Mean Corpuscular HGB Conc 30.5 g/dl (31.0-36.0); Mean Corpuscular Hemoglobin 24.6 pg (27.0-33.0); Mean Corpuscular Volume 80.8 fL (80.0-98.0); NRBC Abs Auto 0.030 X10*3/uL (0.0-0.012); NRBC Pct Auto 0.2 /100WBC (0.0-0.2); Platelet Count 536 X10*3/uL (160-400); Red Blood Count 3.33 X10*6/uL (4.60-5.80); White Blood Count 15.7 X10*3/uL (4.8-10.8)
[2024-12-22 17:17] LABS: Alanine Aminotransferase 11 U/L (0-40); Albumin Level 3.0 g/dL (3.5-5.0); Alkaline Phosphatase 85 U/L (39-117); Anion Gap 11 (12-20); Aspartate Amino Transferase 36 U/L (5-37); Blood Urea Nitrogen 19 mg/dL (9-16); Calcium 8.1 mg/dL (8.4-10.2); Carbon Dioxide 25 mmol/L (22-29); Chloride 109 mmol/L (96-108); Creatinine Clr Calc Pharmacy 135.2; Estimated Glomerular Filt Rate > 60; Magnesium 2.0 mg/dL (1.6-2.6); Potassium 3.9 mmol/L (3.3-5.1); Sodium 141 mmol/L (135-145); Total Protein 6.0 g/dL (6.5-8.0)
[2024-12-22] MEDS: LACTATED RINGERS 2955 ML IV (17:45)
[2024-12-22 18:19] LABS: Glucose, Whole Blood 108 mg/dL (60-115)
--- NOTE | 2024-12-22 19:33 | PC.NURSE ---
Patient transferred to ICU from [facility]. Patient was a rapid response on unit and was intubated for altered mental status. He was noted to be more lethargic and increased drainage from midline incision. Dr Collazo was at bedside to evaluate and dressing was changed. clinical research monitor applied, sinus rhythm. Hypotensive, Levophed drip started to maintain BP while receiving bolus. Total 3 liters LR given per sepsis protocol. Labs drawn. ETT 7.5 @25 lip. AC 16 TV 400 FiO2 30% Peep 5. tolerating well. OG tube inserted. CXR completed. Colostomy and LEÓN noted. Portacath right chest. Receiving IV abx. DTI to coccyx noted, wound care nurse following. Bedrest turned and repositioned. Compression boots applied. Report given to night RN. Plan for CT scan.
[2024-12-22 19:44] LABS: Glucose, Whole Blood 121 mg/dL (60-115)
[2024-12-22 20:39] LABS: ABG Refer to POC result
[2024-12-22 21:50] LABS: Glucose, Whole Blood 148 mg/dL (60-115)
--- NOTE | 2024-12-22 23:54 | PM.CCN ---
Critical Care Event Note Summary Date of Service: 12/22/24 Code activated: No Narrative: This case had a high probability of a clinically significant, sudden, or life threatening deterioration of this patient's condition which required my full and direct attention, intervention and personal management. Critical Care Time (minutes): 20 Comment: At 19:28, the patient suddenly became bradycardic with a heart rate of 32 beats per minute, sustained and with significant pauses, QT prolongation on the monitor. The patient's blood pressure is above 120, he is on propofol and fentanyl, additionally he had receive Lopressor earlier on for heart rate control. Fentanyl was stopped, Narcan was given IV push as 0.4 mg x 1 attempting to reverse fentanyl effect and the Synergy of this with propofol. Additionally glucagon 1 mg IV push was given. Pacer pads at bedside. No need for atropine at this point as the patient remains hemodynamically stable. We will monitor the patient closely, for now the patient will now go to the planned chest, abdomen and pelvis CT. Given that the patient was intubated earlier due to altered mental status and has a history of cancer, we will add a head CT with and without contrast. I also spoke to the patient's aunt Chioma who consented for the contrast administration in the above-mentioned studies over the phone with Jaron CASTRO as a witness. The patient will remain on propofol only, fentanyl has been discontinued completely. Critical care time used for critical evaluation of this patient, diagnosis, treatment and coordination of care, review her records and documentation TOTAL CRITICAL CARE TIME 20 MIN . discussion and coordination with consultants, completely separate from any procedures performed. Patient's care was discussed in detail with Dr. Alejandro. He is aware of all the above as well as the plan of care for this patient.
[2024-12-23] VITALS (41 sets, daily range): BP systolic 101–148; BP diastolic 56–84; PULSE 56–94; RESP 12–24; TEMP 21.9–38.5; O2SAT 93–100; BMI 36.5
[2024-12-23] MEDS: iohexoL 350 MG/ML 100 ML INFUS..BTL IV (00:59)
[2024-12-23] MEDS: 0.9 % Sodium Chloride Flush 3 ML SYRINGE IVFLUSH ×4 (01:30→23:47)
[2024-12-23] MEDS: metroNIDAZOLE/NS 500 MG/100 ML PIGGYBACK 100 MG IV ×3 (01:32→18:17)
--- NOTE | 2024-12-23 04:29 | PC.NURSE ---
Addendum entered by Jordan Rainey RN 12/23/24 06:30: 6AM BLADDER SCANNED 653ml...PROVIDER UPDATED....STRAIGHT CATH'C FOR 600ml SEMAJ URINE Original Note: CARE ASSUMED 7PM...INTUBATED/VCV VENT SUPPORT...PROPOFOL 40 MCG/KG/MIN & FENTANYL 50 MCG/HR...LEVOPHED DRIP PER AUG...INITIALLY SINUS BRADYCARDIA/NSR HR 58-64....APPROX 7:30 PM MARKED BRADYCARDIA...HR LOW 30'S...BP STABLE ..PROVIDER AT BEDSIDE...FENTANYL DRIP HELD..NARCAN 0.2 MG IV X2 DOSES PER PROVIDER (TOTAL 0.4 MG IV)...PER REPORT PATIENT RECEIVED LOPRESSOR PRIOR TO TRANSFER TO ICU FOR RAPID ATRIAL FIB WHICH CONVERTED TO NSR...GLUCAGON 1 MG IV X1 GIVEN PER PROVIDER...MONITOR S.BOUBACAR HR 50'S AFTER FENTANYL DRIP HELD..OG-TUBE CLAMPED...COLOSTOMY SCANT LIQUIED BROWN DRAINAGE...LEFT LEÓN DRAIN WITH TANNISH PURULENT DRAINAGE...ABDOMINAL INCISION DRESSING CGANGED FOR TANNISH-BROWN DRAINAGE..PACKING LEFT IN PLACE THAT WAS PLACED BY SURGEON PRIOR TO SHIFT CHANGE...EXTERNAL PURWIK CATHETER IN PLACE..NO OUTPUT SINCE TRANSFERRED TO ICU...BLADDER SCANNED 7PM FOR 221 ML...REPEAT SCANNED 11PM (NO OUTPUT) FOR 715ML...PER PROVIDER VERBAL ORDER STRAIGHT CATH'S 625 ML SEMAJ-YELLOW URINE....TO CT DEPT OVERNIGHT FOR CT ABDOMEN/CHEST/HEAD...RESULTS CALLED BY [facility] AND REPORTED TO ICU PROVIDER
[2024-12-23 05:10] LABS: VBG HCO3 28 mmol/L (22-26)
[2024-12-23 05:11] LABS: Venous Blood Gas Refer to POC result
[2024-12-23 05:12] LABS: Hematocrit 25.6 % (42.0-52.0); Hemoglobin 7.9 g/dl (14.0-18.0); Mean Corpuscular HGB Conc 30.9 g/dl (31.0-36.0); Mean Corpuscular Hemoglobin 24.5 pg (27.0-33.0); Mean Corpuscular Volume 79.5 fL (80.0-98.0); NRBC Abs Auto 0.050 X10*3/uL (0.0-0.012); NRBC Pct Auto 0.3 /100WBC (0.0-0.2); Platelet Count 635 X10*3/uL (160-400); Red Blood Count 3.22 X10*6/uL (4.60-5.80); White Blood Count 14.4 X10*3/uL (4.8-10.8)
[2024-12-23 05:26] LABS: Anion Gap 13 (12-20); Blood Urea Nitrogen 17 mg/dL (9-16); Calcium 7.9 mg/dL (8.4-10.2); Carbon Dioxide 24 mmol/L (22-29); Chloride 107 mmol/L (96-108); Creatinine Clr Calc Pharmacy 143.8; Estimated Glomerular Filt Rate > 60; Potassium 3.6 mmol/L (3.3-5.1); Sodium 140 mmol/L (135-145)
[2024-12-23 07:44] LABS: Glucose, Whole Blood 121 mg/dL (60-115)
[2024-12-23] MEDS: Potassium Phosphate/NS 15 MMOL/250 ML PLAST..BAG 62.5 MMOL IV (07:49)
--- NOTE | 2024-12-23 08:06 | P.PNGS_ITS ---
Subjective Subjective Date of Service: 12/23/24 Interval history: Transferred to ICU last night for severe somnolence and lethargy Heart rate and blood pressure were labile overnight Currently on pressors Stoma with output Purulent drainage from the open part of the midline incision, same output as LEÓN Physical Exam 2 Vital Signs: Vital Signs: Last Vital Signs Temp 97.6 F 12/23/24 04:00 Pulse 78 12/23/24 07:00 Resp 20 12/23/24 07:00 BP 122/69 12/23/24 07:00 Pulse Ox 94 12/23/24 06:00 O2 Del Method Mechanical Ventil ation 12/23/24 07:00 O2 Flow Rate 2 12/22/24 17:14 FiO2 30 12/23/24 07:37 BMI result Body Mass Index 36.5 Const: Other: Intubated, sedated Resp: Other: On ventilator Cardio: Rate: regular rate GI: Other: Large skin separation, with thick dark purulent drainage on lower part of the midline incision; LEÓN drain in place Palpation (GI): Soft to palpation and not firm Objective Data Active Medications Acetaminophen (Acetaminophen 325 Mg Tablet) 650 mg PO Q6H PRN PRN Reason: Pain, Moderate(Pain Scale 4-6) Last Admin: 12/19/24 12:15 Dose: 650 mg Documented By: EMIL Dextrose (Dextrose 50 % 25 Gm/50 Ml Syringe) 25 gm IVPUSH Q15M PRN; Protocol PRN Reason: per Hypoglycemia Standing Ord. Famotidine (Famotidine/Pf 20 Mg/2 Ml Vial) 20 mg IVPUSH DAILY [facility] Last Admin: 12/22/24 09:41 Dose: 20 mg Documented By: MISAEL Glucose (Glucose Gel 15 Gm Gel..Gram.) 15 gm PO Q15M PRN; Protocol PRN Reason: per Hypoglycemia Standing Ord. Heparin Sodium (Porcine) (Heparin Sodium,Porcine 5,000 Unit/Ml Vial) 5,000 unit SUBCUT Q8H [facility] Last Admin: 12/23/24 01:33 Dose: 5,000 unit Documented By: REYNA Hydrocortisone (Hydrocortisone 1 % Cream 28.35 Gm Tube) 1 appl TOPICAL BID [facility]; Protocol Last Admin: 12/22/24 21:46 Dose: Not Given Documented By: REYNA Non-Admin Reason: Med Not Available Metronidazole (Flagyl) 500 mg in 100 mls @ 100 mls/hr IV Q8H [facility] Last Infusion: 12/23/24 02:55 Dose: Infused Documented By: REYNA Caspofungin 50 mg/ Sodium (Chloride) 250 mls @ 250 mls/hr IV Q24H [facility] Last Infusion: 12/22/24 11:55 Dose: Infused Documented By: BERNABE Fentanyl (Sublimaze/Ns) 1,000 mcg in 100 mls @ 0 mls/hr IVCONT .Q0M [facility]; Protocol Last Titration: 12/22/24 19:34 Dose: 0 mcg/hr, 0 mls/hr Documented By: REYNA Propofol (Diprivan) 1,000 mg in 100 mls @ 0 mls/hr IVCONT .Q0M [facility]; Protocol Last Admin: 12/23/24 07:39 Dose: 40 mcg/kg/min, 23.64 mls/hr Documented By: JENA Norepinephrine Bitartrate (Levophed) 8 mg in 250 mls @ 0 mls/hr IVCONT .Q0M [facility]; Protocol Last Admin: 12/23/24 01:37 Dose: 0.13 mcg/kg/min, 24.01 mls/hr Documented By: REYNA Potassium Phosphate (Kphos) 15 mmol in 250 mls @ 62.5 mls/hr IV ONCE ONE Stop: 12/23/24 11:29 Last Admin: 12/23/24 07:49 Dose: 62.5 mls/hr Documented By: JENA Insulin Glargine (Insulin Glargine,Hum.Rec.Anlog 100 Unit/Ml 10 Ml Vial) 20 unit SUBCUT DAILY [facility] Last Admin: 12/22/24 09:41 Dose: 20 unit Documented By: MISAEL Insulin Human Lispro (Insulin Lispro 100 Unit/Ml 3 Ml Vial) 0 unit SUBCUT QIDACHS [facility]; Protocol Last Admin: 12/23/24 07:48 Dose: Not Given Documented By: JENA Non-Admin Reason: No Insulin Coverage Meropenem (Meropenem 1 Gm Vial) 1 gm IVPUSH Q8H [facility] Last Admin: 12/23/24 03:06 Dose: 1 gm Documented By: REYNA Naloxone HCl (Naloxone Hcl 0.4 Mg/Ml Vial) 0.2 mg IVPUSH Q2M PRN PRN Reason: Excessive sedation or RR < 8 Last Admin: 12/22/24 19:37 Dose: 0.2 mg Documented By: REYNA Naloxone HCl (Naloxone Hcl 0.4 Mg/Ml Vial) 0.2 mg IVPUSH Q2M PRN PRN Reason: Excessive sedation or RR < 8 Last Admin: 12/22/24 19:38 Dose: 0.2 mg Documented By: REYNA Pharmacy Consult (Consult Rx Parenteral Nutrition Ordering) 1 each MISCELLANE DAILY PRN PRN Reason: Consult order Sodium Chloride (0.9 % Sodium Chloride Flush 3 Ml Syringe) 3 ml IVFLUSH QSHIFT [facility] Last Admin: 12/23/24 07:50 Dose: 3 ml Documented By: JENA Labs 12/23/24 04:55 12/23/24 04:55 Labs: Laboratory Results - last 24 hr 12/22/24 12/22/24 12/22/24 09:53 11:52 14:44 MCV 79.5 L MCH 24.9 L MCHC 31.3 RDW 22.8 H Plt Count 499 H MPV 9.3 L Absolute Nucleated RBC 0.020 H Nucleated RBC % (auto) 0.1 O2 Saturation ABG pH at Pt Temp ABG pCO2 at Pt Temp ABG pO2 at Pt Temp ABG HCO3 ABG Base Excess (Actual) VBG pH VBG pCO2 VBG pO2 VBG HCO3 VBG O2 Saturation VBG Base Excess Anion Gap 9 L Estim Creat Clear Calc 135.2 Estimated GFR > 60 POC Glucose 125 H 111 Random Glucose 111 Lactic Acid Calcium 8.0 L Phosphorus Magnesium Total Bilirubin AST ALT Alkaline Phosphatase Total Protein Albumin 12/22/24 12/22/24 12/22/24 15:11 15:40 15:59 MCV MCH MCHC RDW Plt Count MPV Absolute Nucleated RBC Nucleated RBC % (auto) O2 Saturation 99.0 ABG pH at Pt Temp 7.48 H ABG pCO2 at Pt Temp 35 ABG pO2 at Pt Temp 99 ABG HCO3 26 ABG Base Excess (Actual) 3.7 VBG pH VBG pCO2 VBG pO2 VBG HCO3 VBG O2 Saturation VBG Base Excess Anion Gap Estim Creat Clear Calc Estimated GFR POC Glucose 113 115 Random Glucose Lactic Acid Calcium Phosphorus Magnesium Total Bilirubin AST ALT Alkaline Phosphatase Total Protein Albumin 12/22/24 12/22/24 12/22/24 16:40 18:15 19:28 MCV 80.8 MCH 24.6 L MCHC 30.5 L RDW 23.3 H Plt Count 536 H MPV 9.8 Absolute Nucleated RBC 0.030 H Nucleated RBC % (auto) 0.2 O2 Saturation ABG pH at Pt Temp ABG pCO2 at Pt Temp ABG pO2 at Pt Temp ABG HCO3 ABG Base Excess (Actual) VBG pH VBG pCO2 VBG pO2 VBG HCO3 VBG O2 Saturation VBG Base Excess Anion Gap 11 L Estim Creat Clear Calc 135.2 Estimated GFR > 60 POC Glucose 108 121 H Random Glucose 108 Lactic Acid 1.5 Calcium 8.1 L Phosphorus 2.5 L Magnesium 2.0 Total Bilirubin 0.5 AST 36 ALT 11 Alkaline Phosphatase 85 Total Protein 6.0 L Albumin 3.0 L 12/22/24 12/23/24 12/23/24 21:46 04:55 05:06 MCV 79.5 L MCH 24.5 L MCHC 30.9 L RDW 22.9 H Plt Count 635 H MPV 9.6 Absolute Nucleated RBC 0.050 H Nucleated RBC % (auto) 0.3 H O2 Saturation ABG pH at Pt Temp ABG pCO2 at Pt Temp ABG pO2 at Pt Temp ABG HCO3 ABG Base Excess (Actual) VBG pH 7.51 H VBG pCO2 34 VBG pO2 53 VBG HCO3 28 H VBG O2 Saturation Not Reportable VBG Base Excess 5.4 Anion Gap 13 Estim Creat Clear Calc 143.8 Estimated GFR > 60 POC Glucose 148 H Random Glucose 122 H Lactic Acid Calcium 7.9 L Phosphorus Magnesium Total Bilirubin AST ALT Alkaline Phosphatase Total Protein Albumin 12/23/24 07:39 MCV MCH MCHC RDW Plt Count MPV Absolute Nucleated RBC Nucleated RBC % (auto) O2 Saturation ABG pH at Pt Temp ABG pCO2 at Pt Temp ABG pO2 at Pt Temp ABG HCO3 ABG Base Excess (Actual) VBG pH VBG pCO2 VBG pO2 VBG HCO3 VBG O2 Saturation VBG Base Excess Anion Gap Estim Creat Clear Calc Estimated GFR POC Glucose 121 H Random Glucose Lactic Acid Calcium Phosphorus Magnesium Total Bilirubin AST ALT Alkaline Phosphatase Total Protein Albumin Procedures Date of Service Date of Service: 12/23/24 Progress Note: A&P Assessment and plan (1) Diverticulitis of colon with perforation: Status: Acute Assessment and Plan: Transferred to ICU yesterday for somnolence and lethargy CT done this morning He has developed new collections - the collection in the right gutter seems to be the 1 that is organized and maybe drainable We will consult with IR Dressings changed - packing applied IV antibiotics ICU care OG-tube in place Abdomen is soft and benign We will update family Somnolence lethargy yesterday likely to be related to meds Discussed with ICU staff Time Spent With Patient Time: Total time managing care of this patient today ____ minutes. Quality Stroke Does the patient have a stroke diagnosis?: No VTE Prior VTE?: No VTE Risk Level:: Medical - moderate - high VTE Device Contraindication: N/A - Device Ordered VTE Drug Contraindication: N/A - Med Ordered
--- NOTE | 2024-12-23 10:47 | MHC.SLORD ---
Speech Language Pathology Order Status: Pt intubated and transferred to ICU yesterday. [employer] GU[employer] AND DRIVER to see pt for re-evaluation 24+ hours s/p extubation.
[2024-12-23 11:26] LABS: Glucose, Whole Blood 122 mg/dL (60-115)
--- NOTE | 2024-12-23 11:46 | MHC.CLN ---
F/U PATIENT INTUBATED AND SEDATED IN ICU. PER CONVERSATION WITH MD, START PPN NUTRITION. LABS REVIEWED. COMMUNICATED WITH PHARMACY. RECOMMEND START PPN AT 50 ML PER HOUR TO PROVIDE 51 G PROTEIN, 120 G DEXTROSE, 612 KCALS. FOLLOW FOR NUTRITIONAL NEEDS, DIET ADVANCEMENT, PLAN OF CARE. SKIN WITH DTI TO COCCYX AND DTI TO OCCIPUT.
[2024-12-23 12:18] LABS: Albumin Level 2.9 g/dL (3.5-5.0); Magnesium 1.9 mg/dL (1.6-2.6)
[2024-12-23 13:11] LABS: Appearance Urine Clear; Glucose Urine UA Negative (Negative); PH 6.0 (5.0-9.0); Specific Gravity - Urine >= 1.030 (1.005-1.025); UMIC TRIGGER UACC YES
--- NOTE | 2024-12-23 13:22 | MHC.CM.PN ---
EMR REVIEWED. PT IS CURRENTLY IN ICU ON VENTILITORY/PRESSOR SUPPORT. CM CONTINUES TO FOLLOW FOR DC PLAN.
--- NOTE | 2024-12-23 15:31 | PM.CCPN ---
Subjective Subjective Date of Service: 12/23/24 Interval History: Episode of bradycardia last night, after which fentanyl was stopped On propofol for sedation, continues to be on ventilator support this morning On Levophed for vasopressor support Critical Care Time (minutes): 35 Physical Exam Vital Signs: Vital Signs: Last Vital Signs Temp 99.3 F 12/23/24 13:00 Pulse 80 12/23/24 15:00 Resp 23 H 12/23/24 15:00 BP 112/64 12/23/24 15:00 Pulse Ox 97 12/23/24 15:00 O2 Del Method Mechanical Ventil ation 12/23/24 15:00 O2 Flow Rate 2 12/22/24 17:14 FiO2 25 12/23/24 15:00 BMI result Body Mass Index 36.5 General: Middle-aged male in somewhat acute distress, he is chronically ill appearing and tired appearing Nutritional Appearance: well nourished and overweight Eyes: appearance normal, both eyes and all related structures; Alignment and Position: alignment normal and position normal Neck: No lymphadenopathy, no thyromegaly Resp: bilateral air entry equal, occasional added sounds present Cardio: Regular rate, regular rhythm; Heart sounds: S1 normal heart sound present and S2 normal heart sound present GI: soft, nontender, no guarding, no hepatosplenomegaly : bladder normal to inspection, bladder normal to palpation, no renal angle tenderness Skin: no rashes or lesions noted and elasticity normal Neuro: Follows commands upon sedation vacation Objective Data Labs 12/23/24 04:55 12/23/24 04:55 Labs: Laboratory Results - last 24 hr 12/22/24 12/22/24 12/22/24 15:40 15:59 16:40 WBC 15.7 H RBC 3.33 L Hgb 8.2 L Hct 26.9 L MCV 80.8 MCH 24.6 L MCHC 30.5 L RDW 23.3 H Plt Count 536 H MPV 9.8 Absolute Nucleated RBC 0.030 H Nucleated RBC % (auto) 0.2 O2 Saturation 99.0 ABG pH at Pt Temp 7.48 H ABG pCO2 at Pt Temp 35 ABG pO2 at Pt Temp 99 ABG HCO3 26 ABG Base Excess (Actual) 3.7 VBG pH VBG pCO2 VBG pO2 VBG HCO3 VBG O2 Saturation VBG Base Excess Sodium 141 Potassium 3.9 Chloride 109 H Carbon Dioxide 25 Anion Gap 11 L BUN 19 H Creatinine 0.67 Estim Creat Clear Calc 135.2 Estimated GFR > 60 POC Glucose 115 Random Glucose 108 Lactic Acid 1.5 Calcium 8.1 L Phosphorus 2.5 L Magnesium 2.0 Total Bilirubin 0.5 AST 36 ALT 11 Alkaline Phosphatase 85 Total Protein 6.0 L Albumin 3.0 L Urine Color Urine Appearance Urine pH Ur Specific [place] Urine Protein Urine Glucose (UA) Urine Ketones Urine Blood Urine Nitrite Ur Leukocyte Esterase Urine RBC Urine WBC Ur Squamous Epith Cells Urine Bacteria Hyaline Casts 12/22/24 12/22/24 12/22/24 18:15 19:28 21:46 WBC RBC Hgb Hct MCV MCH MCHC RDW Plt Count MPV Absolute Nucleated RBC Nucleated RBC % (auto) O2 Saturation ABG pH at Pt Temp ABG pCO2 at Pt Temp ABG pO2 at Pt Temp ABG HCO3 ABG Base Excess (Actual) VBG pH VBG pCO2 VBG pO2 VBG HCO3 VBG O2 Saturation VBG Base Excess Sodium Potassium Chloride Carbon Dioxide Anion Gap BUN Creatinine Estim Creat Clear Calc Estimated GFR POC Glucose 108 121 H 148 H Random Glucose Lactic Acid Calcium Phosphorus Magnesium Total Bilirubin AST ALT Alkaline Phosphatase Total Protein Albumin Urine Color Urine Appearance Urine pH Ur Specific [place] Urine Protein Urine Glucose (UA) Urine Ketones Urine Blood Urine Nitrite Ur Leukocyte Esterase Urine RBC Urine WBC Ur Squamous Epith Cells Urine Bacteria Hyaline Casts 12/23/24 12/23/24 12/23/24 04:55 05:06 07:39 WBC 14.4 H RBC 3.22 L Hgb 7.9 L Hct 25.6 L MCV 79.5 L MCH 24.5 L MCHC 30.9 L RDW 22.9 H Plt Count 635 H MPV 9.6 Absolute Nucleated RBC 0.050 H Nucleated RBC % (auto) 0.3 H O2 Saturation ABG pH at Pt Temp ABG pCO2 at Pt Temp ABG pO2 at Pt Temp ABG HCO3 ABG Base Excess (Actual) VBG pH 7.51 H VBG pCO2 34 VBG pO2 53 VBG HCO3 28 H VBG O2 Saturation Not Reportable VBG Base Excess 5.4 Sodium 140 Potassium 3.6 Chloride 107 Carbon Dioxide 24 Anion Gap 13 BUN 17 H Creatinine 0.63 Estim Creat Clear Calc 143.8 Estimated GFR > 60 POC Glucose 121 H Random Glucose 122 H Lactic Acid Calcium 7.9 L Phosphorus 2.9 Magnesium 1.9 Total Bilirubin AST ALT Alkaline Phosphatase Total Protein Albumin 2.9 L Urine Color Urine Appearance Urine pH Ur Specific [place] Urine Protein Urine Glucose (UA) Urine Ketones Urine Blood Urine Nitrite Ur Leukocyte Esterase Urine RBC Urine WBC Ur Squamous Epith Cells Urine Bacteria Hyaline Casts 12/23/24 12/23/24 11:21 12:54 WBC RBC Hgb Hct MCV MCH MCHC RDW Plt Count MPV Absolute Nucleated RBC Nucleated RBC % (auto) O2 Saturation ABG pH at Pt Temp ABG pCO2 at Pt Temp ABG pO2 at Pt Temp ABG HCO3 ABG Base Excess (Actual) VBG pH VBG pCO2 VBG pO2 VBG HCO3 VBG O2 Saturation VBG Base Excess Sodium Potassium Chloride Carbon Dioxide Anion Gap BUN Creatinine Estim Creat Clear Calc Estimated GFR POC Glucose 122 H Random Glucose Lactic Acid Calcium Phosphorus Magnesium Total Bilirubin AST ALT Alkaline Phosphatase Total Protein Albumin Urine Color Yellow Urine Appearance Clear Urine pH 6.0 Ur Specific [place] >= 1.030 H Urine Protein 30 (1+) H Urine Glucose (UA) Negative Urine Ketones Trace Urine Blood Negative Urine Nitrite Negative Ur Leukocyte Esterase Negative Urine RBC 0-2 Urine WBC 0-5 Ur Squamous Epith Cells 0-2 Urine Bacteria None Seen Hyaline Casts 3-5 Microbiology Microbiology Results: Microbiology 12/09/24 08:54 Gastric Fluid Gram Stain - Final 12/09/24 08:54 Gastric Fluid Anaerobic Culture - Final 12/09/24 08:54 Gastric Fluid Body Fluid Culture - Final Klebsiella pneumoniae Flavia species Viridans streptococcus group 12/05/24 20:15 Peritoneal Fluid Gram Stain - Final 12/05/24 20:15 Peritoneal Fluid Routine Culture - Final Klebsiella pneumoniae Escherichia coli Bacillus species Pseudomonas species 12/05/24 20:15 Peritoneal Fluid Anaerobic Culture - Final 12/05/24 16:52 Blood - Venous Blood Culture - Final Escherichia coli Bacteroides fragilis group 12/05/24 16:52 Blood - Venous Blood Culture - Final Escherichia coli Bacteroides fragilis group Progress Note: A&P Assessment and plan (1) Atrial fibrillation with tachycardic ventricular rate: Status: Acute (2) Acute hypoxemic respiratory failure: Status: Acute (3) ARDS (adult respiratory distress syndrome): Status: Acute (4) Colonic mass: Status: Acute Plan Neuro: Acute encephalopathy possibly due to metabolic encephalopathy from severe sepsis On propofol for sedation, we will taper to wean the patient from ventilator support Close neurological status monitoring in the ICU every hour Cardiac: Cardiogenic Shock: Possibly secondary to positive pressure ventilation On Levophed support, titrate Levophed to keep map above 65 mm Hg Paroxysmal atrial fibrillation: Treated with amiodarone Currently in sinus rhythm Not on anticoagulation due to anemia Respiratory: Acute hypoxemic respiratory failure due to poor respiratory efforts from encephalopathy Currently on ventilator support On PRVC mode FiO 30%, PEEP 5, TV400, RR 20, we will place the patient on pressor support for weaning trials if he does well we will extubate the patient Peak pressures and plateau pressures are under the curve Ventilator management bundle with head end elevation, aspiration precaution, chlorhexidine mouthwash, daily awakening trials, daily spontaneous breathing trials GI: Stage IV colon cancer with sigmoid colon perforation, status post ex laparotomy, drain draining pus CT abdomen and pelvis showed small fluid collection in the right lower quadrant, IR was consulted for drainage but could not locate the abscess as it was small. Has a another left-sided fluid collection, which should be drained from the drain We will add PPN for nutrition Renal: renal function normal We will closely monitor I's and O's Avoid nephrotoxic medications Heme: Chronic anemia, closely monitor H&H, transfuse for hemoglobin less than 7 grams/deciliter Endocrine: Diabetes mellitus, HbA1c 6.8 Sliding scale insulin as needed Infectious disease: peritoneal fluid growing klebsiela, flavia, strep viridan, ecoli, bacillus and pseudomonas he has been on multiple Abx current on Flagyl, meropenem and caspofungin, ID recommendation is for Meropenem, metronidazole, caspofungin, Augmentin, and Flagyl for 2 weeks at [facility] Musculoskeletal: Decubitus ulcer prevention protocol Lines: peripheral Male [place] Prophylaxis: Heparin, pantoprazole Critical care time spent is about 40 minutes on ventilator management, changing ventilator settings, weaning trials, postextubation care, close hemodynamic monitoring, sedation management, vasopressor management at this time is excluding any procedural time. Quality Stroke Does the patient have a stroke diagnosis?: No VTE Prior VTE?: No VTE Risk Level:: Medical - moderate - high VTE Device Contraindication: N/A - Device Ordered VTE Drug Contraindication: N/A - Med Ordered
[2024-12-23] MEDS: Chlorhexidine Gluc Oral Rinse 15 ML MOUTHWASH BUCCAL (15:56)
--- NOTE | 2024-12-23 16:08 | PM.EVENT ---
Event Note Date of Service: 12/24/24 Event Note: Seen on afternoon rounds Currently extubated Awake, communicates the appears very frail With some shortness of breath Was arranged to have CT drain today but on follow up CAT scan prior to drainage, right gutter collections seems resolved Likely to have drained through the midline incision Continue wound care Okay to have some oral intake with aspiration precaution Family updated Time Spent With Patient Time: Total time managing care of this patient today ____ minutes.
--- NOTE | 2024-12-23 16:58 | HO.WOUND ---
Wound Consult: Follow up 54 yr old?male admitted to [facility] [place] [facility] on 12/05/24 - See progress notes and H&P for detailed history.? Wound consult follow up for sacral area, Abdomen and Occiput.? Patient was recently transferred back to ICU level of care. Patient remains weak with a complex hospital admission - see provider notes for details of admission. ? Patient remains critically ill requiring pressors. Will need STR placement when cleared for d/c. Of note the patient has a new ostomy created this admission. He is not ready or appropriate for teaching at this time - continues with weakness and difficulty concentrating. Attempting to coordinate assessment with Dr. Wright for possible bedside debridement. She is agreeable to Santyl after discussion and chart review. Orders updated below. Stoma - red moist almost flat to skin level. Pouch changed today without issue template left at bedside cute to oval [id number] flat 1 piece [id number] coloplast - peristomal tissue remains intact - there is a small area of necrotic tissue noted at 6 o'clock - treated with Brava Strip Paste to aid in moist wound healing and autolytic debridement. Will follow along for osotmy teaching readiness. 12/16/24 12/22/24 Sacrum Etiology: ?Deep tissue Injury ? Wound Bed: continues to evolve areas of improvement noted- central area is in evolution Drainage / Odor: none noted at this time Edges: ? irregular Stan wound: ?dark red pink tissue - slow to maxwlel tissue - No Induration, Fluctuance or Warmth noted Goals of Treatment: ? off load pressure consider switching to Medihoney or Santly or debridement Dr. Wright to consult and assess wound bed for expert opinion. 12/16/24 Post clipping 12/22/24 Occiput Etiology: Resolving Deep Tissue injury ? Wound Bed: improving drying epidermal layer maroon purple nonblanchable tissue remains but improving Drainage / Odor: None Edges: ? irregular Stan wound: intact tissue No Induration, Fluctuance or Warmth noted Goals of Treatment: ? May leave open to air - routine hair care washing and brushing Midline - Surgical Site - Dehiscence ??No updated photo - Surgery Managing - with wet to moist dressing - see note from today 12/22/24 - will defer topical care to General Surgery Team will discontinue dressing orders as no longer needed Iodosorb per general surg note today 12/22/24. Surgical Site - Dehiscence ?? New topical order below: Midline - Gently cleanse with NS, Lightly pack wound with saline wet gauze, cover with dry gauze and ABD pad. Change daily and reinforce as needed. Recommendations: 1. Turn and Reposition every 2 hours and as needed for patient comfort.? Use pillows or wedges to support off loading positions. 2. Off Load all bony prominences with use of pillows and heel boots if needed.? Apply Preventative foams where needed. ? 3. Monitor for incontinence and moisture control, use barrier creams when needed for prevention and treatment. 4. Provide adequate and supplemental nutrition.? 5. Continue low air loss mattress. 6. When applicable maintain blood glucose levels per Providers order. Occiput - Off Load Pressure with Q2 hr turns and use of Mizuho pillow - Cleanse with PH balance spray or wipes, pat dry. ?May leave POLICE MATRON at this time as it continues to resolve. Sacrum - Off Load Pressure with Q2 hr turns and use of pillows - Cleanse with PH balance spray or wipes, pat dry. ?Apply barrier to the immediate stan wound, apply thick layer of Santyl to entire wound bed, cover with saline moist gauze, cover with dry gauze, ABD pad, change Daily. Midline - Gently cleanse with NS moist gauze, lightly pack midline with saline wet gauze, cover with dry gauze and ABD pad. Change daily and reinforce as needed.
[2024-12-23 17:45] LABS: Glucose, Whole Blood 113 mg/dL (60-115)
--- NOTE | 2024-12-23 18:36 | PC.NURSE ---
Assumed care at 0700- pt. intubated and sedated. Pt. opening eyes to verbal stimuli, tracks, occasionally following commands/nodding head to questions. SR on tele, HR 70s-90s. MAPs >65 on levophed gtt per MAR. tolerating ACVC vent settings 16/400/5/25%. OGT in place, clamped. Pt. with no spontaneous void, bladder scanned at 1200 for 525 cc- MD notified, rutherford placed draining cyu. At [address] for abdominal drain placement with IR, procedure held by IR. At 1515 sedation vacation initiated, patient with RASS 0. Pt. extubated at 1534 by RT per MD order. Pt. A&O to self and place, confused and disoriented. pt. with intermittent anxiety. Q2 oral care and repositioning performed. Family updated by this RN and MD via telephone. Plan of care ongoing.
[2024-12-23] MEDS: Parenteral Nutrition 1,200 ML 50 ML IV (20:49)
[2024-12-24] VITALS (27 sets, daily range): BP systolic 95–146; BP diastolic 54–73; PULSE 70–126; RESP 15–34; TEMP 36.9–38.6; O2SAT 93–98; BMI 33.0
[2024-12-24 00:05] LABS: Glucose, Whole Blood 113 mg/dL (60-115)
[2024-12-24] MEDS: metroNIDAZOLE/NS 500 MG/100 ML PIGGYBACK 100 MG IV (00:46)
[2024-12-24 05:03] LABS: MANUAL DIFF FLAG NO
[2024-12-24 05:08] LABS: VBG HCO3 31 mmol/L (22-26)
[2024-12-24 05:22] LABS: Venous Blood Gas Refer to POC result
[2024-12-24 05:25] LABS: Hematocrit 23.0 % (42.0-52.0); Imm Gran Abs Auto 0.12 X10*3/uL (0.00-0.03); Imm Gran Pct Auto 1.1 % (0.0-0.4); Lymphocytes Absolute Auto 1.1 X10*3/uL (1.2-4.9); Mean Corpuscular HGB Conc 30.4 g/dl (31.0-36.0); Mean Corpuscular Hemoglobin 24.7 pg (27.0-33.0); Mean Corpuscular Volume 81.3 fL (80.0-98.0); NRBC Abs Auto 0.000 X10*3/uL (0.0-0.012); NRBC Pct Auto 0.0 /100WBC (0.0-0.2); Platelet Count 425 X10*3/uL (160-400); Red Blood Count 2.83 X10*6/uL (4.60-5.80); White Blood Count 11.2 X10*3/uL (4.8-10.8)
[2024-12-24 05:53] LABS: Magnesium 1.9 mg/dL (1.6-2.6)
[2024-12-24 05:56] LABS: Alanine Aminotransferase 6 U/L (0-40); Albumin Level 2.6 g/dL (3.5-5.0); Alkaline Phosphatase 74 U/L (39-117); Anion Gap 10 (12-20); Aspartate Amino Transferase 28 U/L (5-37); Blood Urea Nitrogen 14 mg/dL (9-16); Calcium 7.8 mg/dL (8.4-10.2); Carbon Dioxide 26 mmol/L (22-29); Chloride 107 mmol/L (96-108); Creatinine Clr Calc Pharmacy 138.0; Estimated Glomerular Filt Rate > 60; Magnesium 1.9 mg/dL (1.6-2.6); Potassium 3.5 mmol/L (3.3-5.1); Sodium 139 mmol/L (135-145); Total Protein 5.3 g/dL (6.5-8.0)
[2024-12-24 06:02] LABS: Hemoglobin 7.0 g/dl (14.0-18.0)
[2024-12-24] MEDS: Albumin Human 25 % 100 ML 133.33 ML IV ×2 (06:26→07:36)
--- NOTE | 2024-12-24 07:13 | PC.NURSE ---
At approx 0500, HR up to 130s-140s, sustaining. DUTCH Howe notified, digoxin given per AUG. Digoxin given with minimal effect. Core temp 101.3, Per DUTCH Howe, place ice packs on pt. Report given to oncoming RN at 0700.
[2024-12-24] MEDS: 0.9 % Sodium Chloride Flush 3 ML SYRINGE IVFLUSH ×2 (07:35→15:45)
--- NOTE | 2024-12-24 08:06 | P.PNGS_ITS ---
Subjective Subjective Date of Service: 12/24/24 <Amy Alaniz PA-C - Last Filed: 12/24/24 08:13> 12/24/24 <Bam Collazo MD - Last Filed: 12/24/24 09:26> Interval history: Extubated yesterday, now on nasal cannula. Unable to perform IR drainage yesterday of left sided collection as too small per radiologist. <Amy Alaniz PA-C - Last Filed: 12/24/24 08:13> Physical Exam 2 Vital Signs: Vital Signs: Last Vital Signs Temp 101.5 F H 12/24/24 07:00 Pulse 126 H 12/24/24 07:00 Resp 22 H 12/24/24 07:00 BP 111/63 12/24/24 07:00 Pulse Ox 97 12/24/24 07:00 O2 Del Method Mechanical Ventil ation 12/24/24 07:00 O2 Flow Rate 1 12/24/24 06:00 FiO2 25 12/23/24 15:40 BMI result Body Mass Index 33.0 <Amy Alaniz PA-C - Last Filed: 12/24/24 08:13> Const: General: alert and ill appearing <Amy Alaniz PA-C - Last Filed: 12/24/24 08:13> Resp: Effort & Inspection: no respiratory distress and tachypneic < Amy Alaniz PA-C - Last Filed: 12/24/24 08:13> GI: Other: ostomy with some hard stools incision continues with purulent/feculent output, different from ostomy output open area of inferior aspect of incision with small separation of fascia LEÓN purulent/feculent output <Amy Alaniz PA-C - Last Filed: 12/24/24 08:13> Palpation (GI): Soft to palpation <JYOTI Madrigal Last Filed: 12/24/24 08:13> Objective Data Active Medications Acetaminophen (Acetaminophen 325 Mg Tablet) 650 mg PO Q6H PRN PRN Reason: Pain, Moderate(Pain Scale 4-6) Last Admin: 12/19/24 12:15 Dose: 650 mg Documented By: EMIL Chlorhexidine Gluconate (Chlorhexidine Gluc Oral Rinse 15 Ml Mouthwash) 15 ml BUCCAL TID [facility] Last Admin: 12/23/24 22:03 Dose: Not Given Documented By: AMMON Non-Admin Reason: extubated Collagenase (Collagenase Clostridium Hist. 30 Gm Tube) 1 appl TOPICAL DAILY GEORGINA; Protocol Last Admin: 12/23/24 15:56 Dose: 1 appl Documented By: JENA Dextrose (Dextrose 50 % 25 Gm/50 Ml Syringe) 25 gm IVPUSH Q15M PRN; Protocol PRN Reason: per Hypoglycemia Standing Ord. Famotidine (Famotidine/Pf 20 Mg/2 Ml Vial) 20 mg IVPUSH DAILY [facility] Last Admin: 12/23/24 10:25 Dose: 20 mg Documented By: JENA Glucose (Glucose Gel 15 Gm Gel..Gram.) 15 gm PO Q15M PRN; Protocol PRN Reason: per Hypoglycemia Standing Ord. Hydrocortisone (Hydrocortisone 1 % Cream 28.35 Gm Tube) 1 appl TOPICAL BID GEORGINA; Protocol Last Admin: 12/23/24 22:03 Dose: Not Given Documented By: AMMON Non-Admin Reason: Med Not Available Metronidazole (Flagyl) 500 mg in 100 mls @ 100 mls/hr IV Q8H [facility] Last Infusion: 12/24/24 04:47 Dose: Infused Documented By: MANISH Caspofungin 50 mg/ Sodium (Chloride) 250 mls @ 250 mls/hr IV Q24H [facility] Last Infusion: 12/23/24 12:11 Dose: Infused Documented By: JENA Norepinephrine Bitartrate (Levophed) 8 mg in 250 mls @ 0 mls/hr IVCONT .Q0M [facility]; Protocol Last Titration: 12/23/24 23:56 Dose: 0 mcg/kg/min, 0 mls/hr Documented By: AMMON Nutrition (Parenteral) (Parenteral Nutrition) 1,200 mls @ 50 mls/hr IV .Q24H [facility]; Protocol Stop: 12/24/24 20:59 Last Admin: 12/23/24 20:49 Dose: 50 mls/hr Documented By: AMMON Insulin Glargine (Insulin Glargine,Hum.Rec.Anlog 100 Unit/Ml 10 Ml Vial) 20 unit SUBCUT DAILY [facility] Last Admin: 12/23/24 10:16 Dose: Not Given Documented By: JENA Non-Admin Reason: Physician Held Med Insulin Human Lispro (Insulin Lispro 100 Unit/Ml 3 Ml Vial) 0 unit SUBCUT Q6H [facility]; Protocol Last Admin: 12/24/24 06:04 Dose: Not Given Documented By: MANISH Non-Admin Reason: No Insulin Coverage Meropenem (Meropenem 1 Gm Vial) 1 gm IVPUSH Q8H [facility] Last Admin: 12/24/24 03:05 Dose: 1 gm Documented By: AMMON Pharmacy Consult (Consult Rx Parenteral Nutrition Ordering) 1 each MISCELLANE DAILY PRN PRN Reason: Consult order Sodium Chloride (0.9 % Sodium Chloride Flush 3 Ml Syringe) 3 ml IVFLUSH QSHIFT [facility] Last Admin: 12/24/24 07:35 Dose: 3 ml Documented By: JENA <Amy Alaniz PA-C - Last Filed: 12/24/24 08:13> Labs CBC & Chem 7: 12/24/24 04:50 12/24/24 04:50 <Amy Alaniz PA-C - Last Filed: 12/24/24 08:13> Labs: Laboratory Results - last 24 hr 12/23/24 12/23/24 12/23/24 04:55 11:21 12:54 MCV MCH MCHC RDW Plt Count MPV Immature Gran % (Auto) Neut % (Auto) Lymph % (Auto) [place] % (Auto) Eos % (Auto) Baso % (Auto) Lymph # (Auto) [place] # (Auto) Eos # (Auto) Baso # (Auto) Abs Immat Gran (auto) Absolute Neuts (auto) Absolute Nucleated RBC Nucleated RBC % (auto) VBG pH VBG pCO2 VBG pO2 VBG HCO3 VBG O2 Saturation VBG Base Excess Anion Gap Estim Creat Clear Calc Estimated GFR POC Glucose 122 H Random Glucose Calcium Phosphorus 2.9 Magnesium 1.9 Total Bilirubin AST ALT Alkaline Phosphatase Total Protein Albumin 2.9 L Urine Color Yellow Urine Appearance Clear Urine pH 6.0 Ur Specific [place] >= 1.030 H Urine Protein 30 (1+) H Urine Glucose (UA) Negative Urine Ketones Trace Urine Blood Negative Urine Nitrite Negative Ur Leukocyte Esterase Negative Urine RBC 0-2 Urine WBC 0-5 Ur Squamous Epith Cells 0-2 Urine Bacteria None Seen Hyaline Casts 3-5 Blood Type Antibody Screen Crossmatch 12/23/24 12/23/24 12/24/24 17:41 23:40 04:50 MCV 81.3 MCH 24.7 L MCHC 30.4 L RDW 23.1 H Plt Count 425 H D MPV 10.1 Immature Gran % (Auto) 1.1 H Neut % (Auto) 76.7 H Lymph % (Auto) 9.5 L [place] % (Auto) 7.9 Eos % (Auto) 4.2 H Baso % (Auto) 0.6 Lymph # (Auto) 1.1 L [place] # (Auto) 0.9 Eos # (Auto) 0.5 H Baso # (Auto) 0.1 Abs Immat Gran (auto) 0.12 H Absolute Neuts (auto) 8.6 H Absolute Nucleated RBC 0.000 Nucleated RBC % (auto) 0.0 VBG pH VBG pCO2 VBG pO2 VBG HCO3 VBG O2 Saturation VBG Base Excess Anion Gap 10 L Estim Creat Clear Calc 138.0 Estimated GFR > 60 POC Glucose 113 113 Random Glucose 114 Calcium 7.8 L Phosphorus 2.8 Magnesium Total Bilirubin AST ALT Alkaline Phosphatase Total Protein Albumin Urine Color Urine Appearance Urine pH Ur Specific [place] Urine Protein Urine Glucose (UA) Urine Ketones Urine Blood Urine Nitrite Ur Leukocyte Esterase Urine RBC Urine WBC Ur Squamous Epith Cells Urine Bacteria Hyaline Casts Blood Type Antibody Screen Crossmatch 12/24/24 12/24/24 12/24/24 04:50 04:50 05:03 MCV MCH MCHC RDW Plt Count MPV Immature Gran % (Auto) Neut % (Auto) Lymph % (Auto) [place] % (Auto) Eos % (Auto) Baso % (Auto) Lymph # (Auto) [place] # (Auto) Eos # (Auto) Baso # (Auto) Abs Immat Gran (auto) Absolute Neuts (auto) Absolute Nucleated RBC Nucleated RBC % (auto) VBG pH 7.52 H VBG pCO2 38 VBG pO2 60 VBG HCO3 31 H VBG O2 Saturation TNP VBG Base Excess 8.0 Anion Gap Estim Creat Clear Calc Estimated GFR POC Glucose Random Glucose Calcium Phosphorus 2.7 Magnesium 1.9 1.9 Total Bilirubin 0.4 AST 28 ALT 6 Alkaline Phosphatase 74 Total Protein 5.3 L Albumin 2.6 L Urine Color Urine Appearance Urine pH Ur Specific [place] Urine Protein Urine Glucose (UA) Urine Ketones Urine Blood Urine Nitrite Ur Leukocyte Esterase Urine RBC Urine WBC Ur Squamous Epith Cells Urine Bacteria Hyaline Casts Blood Type Antibody Screen Crossmatch 12/24/24 07:04 MCV MCH MCHC RDW Plt Count MPV Immature Gran % (Auto) Neut % (Auto) Lymph % (Auto) [place] % (Auto) Eos % (Auto) Baso % (Auto) Lymph # (Auto) [place] # (Auto) Eos # (Auto) Baso # (Auto) Abs Immat Gran (auto) Absolute Neuts (auto) Absolute Nucleated RBC Nucleated RBC % (auto) VBG pH VBG pCO2 VBG pO2 VBG HCO3 VBG O2 Saturation VBG Base Excess Anion Gap Estim Creat Clear Calc Estimated GFR POC Glucose Random Glucose Calcium Phosphorus Magnesium Total Bilirubin AST ALT Alkaline Phosphatase Total Protein Albumin Urine Color Urine Appearance Urine pH Ur Specific [place] Urine Protein Urine Glucose (UA) Urine Ketones Urine Blood Urine Nitrite Ur Leukocyte Esterase Urine RBC Urine WBC Ur Squamous Epith Cells Urine Bacteria Hyaline Casts Blood Type O Positive Antibody Screen NEGATIVE Crossmatch See Detail <Amy Alaniz PA-C - Last Filed: 12/24/24 08:13> Microbiology Microbiology Results: Microbiology 12/22/24 16:46 Blood Culture - Preliminary Blood - Venous No growth after 24 hours. 12/22/24 16:40 Blood Culture - Preliminary Blood - Venous No growth after 24 hours. <Amy Alaniz PA-C - Last Filed: 12/24/24 08:13> Procedures Date of Service Date of Service: 12/24/24 <Amy Alaniz PA-C - Last Filed: 12/24/24 08:13> 12/24/24 <Bam Collazo MD - Last Filed: 12/24/24 09:26> Progress Note: A&P Assessment and plan (1) S/P colostomy: Status: Acute <Amy Alaniz PA-C - Last Filed: 12/24/24 08:13> Assessment and Plan: Very frail and weak but more alert, asks and answers questions Stoma functioning well Abdomen is soft LEÓN drain with the same output dark purulent material Some separation of the fascia Diet as tolerated with aspiration precautions WBC down but still with fever spikes Overall appears much improved compared to yesterday Family to review goals of care Seen and examined independently <Bam Collazo MD - Last Filed: 12/24/24 09:26> (2) Perforated viscus: Status: Acute <Amy Alaniz PA-C - Last Filed: 12/24/24 08:13> Assessment and Plan: Extubated yesterday, now on NC. No IR drainage yesterday. H/H drifted down again this morning, however WBC also down. Tachycardic, remains on pressors. Has intraabdominal collections on CT- appear to be being drained by LEÓN as well through incision. ?Small fascial dehisence. Cont wet to dry packing of area followed by dry fluffs, abd and tape. Keep LEÓN drain in place. Further restorative measures per ICU team. Patient expressing wish to discuss goals of care. <Amy Alaniz PA-C - Last Filed: 12/24/24 08:13> Time Spent With Patient Time: Total time managing care of this patient today ____ minutes. <Amy Alaniz PA-C - Last Filed: 12/24/24 08:13> Quality Stroke Does the patient have a stroke diagnosis?: No <Amy Alaniz PA-C - Last Filed: 12/24/24 08:13> VTE Prior VTE?: No <Amy Alaniz PA-C - Last Filed: 12/24/24 08:13> VTE Risk Level:: Medical - moderate - high <Amy Alaniz PA-C - Last Filed: 12/24/24 08:13> VTE Device Contraindication: N/A - Device Ordered <Amy Alaniz PA-C - Last Filed: 12/24/24 08:13> VTE Drug Contraindication: N/A - Med Ordered <JYOTI Madrigal Last Filed: 12/24/24 08:13>
--- NOTE | 2024-12-24 09:19 | PM.CCPN ---
Subjective Subjective Date of Service: 12/24/24 Interval History: Extubated yesterday, tolerating liberation from ventilator well. Episode of atrial fibrillation with RVR overnight Critical Care Time (minutes): 35 Physical Exam Vital Signs: Vital Signs: Last Vital Signs Temp 101.5 F H 12/24/24 08:41 Pulse 111 H 12/24/24 08:41 Resp 21 H 12/24/24 08:41 BP 110/57 L 12/24/24 08:41 Pulse Ox 96 12/24/24 08:00 O2 Del Method Nasal Cannula 12/24/24 08:00 O2 Flow Rate 1 12/24/24 08:00 FiO2 25 12/23/24 15:40 BMI result Body Mass Index 33.0 General: Middle-aged male in mild acute distress, he is chronically ill appearing and tired appearing Nutritional Appearance: Poorly nourished and normal weight Eyes: appearance normal, both eyes and all related structures; Alignment and Position: alignment normal and position normal Neck: No lymphadenopathy, no thyromegaly Resp: bilateral air entry equal, occasional added sounds present Cardio: Regular rate, regular rhythm; Heart sounds: S1 normal heart sound present and S2 normal heart sound present GI: soft, nontender, no guarding, no hepatosplenomegaly, abdominal wound present, has multiple drains : bladder normal to inspection, bladder normal to palpation, no renal angle tenderness Skin: no rashes or lesions noted and elasticity normal Neuro: oriented to person, oriented to place, oriented to time and moves all extremities Objective Data Labs 12/24/24 04:50 12/24/24 04:50 Labs: Laboratory Results - last 24 hr 12/23/24 12/23/24 12/23/24 04:55 11:21 12:54 WBC RBC Hgb Hct MCV MCH MCHC RDW Plt Count MPV Immature Gran % (Auto) Neut % (Auto) Lymph % (Auto) [place] % (Auto) Eos % (Auto) Baso % (Auto) Lymph # (Auto) [place] # (Auto) Eos # (Auto) Baso # (Auto) Abs Immat Gran (auto) Absolute Neuts (auto) Absolute Nucleated RBC Nucleated RBC % (auto) VBG pH VBG pCO2 VBG pO2 VBG HCO3 VBG O2 Saturation VBG Base Excess Sodium Potassium Chloride Carbon Dioxide Anion Gap BUN Creatinine Estim Creat Clear Calc Estimated GFR POC Glucose 122 H Random Glucose Calcium Phosphorus 2.9 Magnesium 1.9 Total Bilirubin AST ALT Alkaline Phosphatase Total Protein Albumin 2.9 L Urine Color Yellow Urine Appearance Clear Urine pH 6.0 Ur Specific [place] >= 1.030 H Urine Protein 30 (1+) H Urine Glucose (UA) Negative Urine Ketones Trace Urine Blood Negative Urine Nitrite Negative Ur Leukocyte Esterase Negative Urine RBC 0-2 Urine WBC 0-5 Ur Squamous Epith Cells 0-2 Urine Bacteria None Seen Hyaline Casts 3-5 Blood Type Antibody Screen Crossmatch 12/23/24 12/23/24 12/24/24 17:41 23:40 04:50 WBC 11.2 H RBC 2.83 L Hgb 7.0 L* Hct 23.0 L MCV 81.3 MCH 24.7 L MCHC 30.4 L RDW 23.1 H Plt Count 425 H D MPV 10.1 Immature Gran % (Auto) 1.1 H Neut % (Auto) 76.7 H Lymph % (Auto) 9.5 L [place] % (Auto) 7.9 Eos % (Auto) 4.2 H Baso % (Auto) 0.6 Lymph # (Auto) 1.1 L [place] # (Auto) 0.9 Eos # (Auto) 0.5 H Baso # (Auto) 0.1 Abs Immat Gran (auto) 0.12 H Absolute Neuts (auto) 8.6 H Absolute Nucleated RBC 0.000 Nucleated RBC % (auto) 0.0 VBG pH VBG pCO2 VBG pO2 VBG HCO3 VBG O2 Saturation VBG Base Excess Sodium 139 Potassium 3.5 Chloride 107 Carbon Dioxide 26 Anion Gap 10 L BUN 14 Creatinine 0.67 Estim Creat Clear Calc 138.0 Estimated GFR > 60 POC Glucose 113 113 Random Glucose 114 Calcium 7.8 L Phosphorus 2.8 Magnesium Total Bilirubin AST ALT Alkaline Phosphatase Total Protein Albumin Urine Color Urine Appearance Urine pH Ur Specific [place] Urine Protein Urine Glucose (UA) Urine Ketones Urine Blood Urine Nitrite Ur Leukocyte Esterase Urine RBC Urine WBC Ur Squamous Epith Cells Urine Bacteria Hyaline Casts Blood Type Antibody Screen Crossmatch 12/24/24 12/24/24 12/24/24 04:50 04:50 05:03 WBC RBC Hgb Hct MCV MCH MCHC RDW Plt Count MPV Immature Gran % (Auto) Neut % (Auto) Lymph % (Auto) [place] % (Auto) Eos % (Auto) Baso % (Auto) Lymph # (Auto) [place] # (Auto) Eos # (Auto) Baso # (Auto) Abs Immat Gran (auto) Absolute Neuts (auto) Absolute Nucleated RBC Nucleated RBC % (auto) VBG pH 7.52 H VBG pCO2 38 VBG pO2 60 VBG HCO3 31 H VBG O2 Saturation TNP VBG Base Excess 8.0 Sodium Potassium Chloride Carbon Dioxide Anion Gap BUN Creatinine Estim Creat Clear Calc Estimated GFR POC Glucose Random Glucose Calcium Phosphorus 2.7 Magnesium 1.9 1.9 Total Bilirubin 0.4 AST 28 ALT 6 Alkaline Phosphatase 74 Total Protein 5.3 L Albumin 2.6 L Urine Color Urine Appearance Urine pH Ur Specific [place] Urine Protein Urine Glucose (UA) Urine Ketones Urine Blood Urine Nitrite Ur Leukocyte Esterase Urine RBC Urine WBC Ur Squamous Epith Cells Urine Bacteria Hyaline Casts Blood Type Antibody Screen Crossmatch 12/24/24 07:04 WBC RBC Hgb Hct MCV MCH MCHC RDW Plt Count MPV Immature Gran % (Auto) Neut % (Auto) Lymph % (Auto) [place] % (Auto) Eos % (Auto) Baso % (Auto) Lymph # (Auto) [place] # (Auto) Eos # (Auto) Baso # (Auto) Abs Immat Gran (auto) Absolute Neuts (auto) Absolute Nucleated RBC Nucleated RBC % (auto) VBG pH VBG pCO2 VBG pO2 VBG HCO3 VBG O2 Saturation VBG Base Excess Sodium Potassium Chloride Carbon Dioxide Anion Gap BUN Creatinine Estim Creat Clear Calc Estimated GFR POC Glucose Random Glucose Calcium Phosphorus Magnesium Total Bilirubin AST ALT Alkaline Phosphatase Total Protein Albumin Urine Color Urine Appearance Urine pH Ur Specific [place] Urine Protein Urine Glucose (UA) Urine Ketones Urine Blood Urine Nitrite Ur Leukocyte Esterase Urine RBC Urine WBC Ur Squamous Epith Cells Urine Bacteria Hyaline Casts Blood Type O Positive Antibody Screen NEGATIVE Crossmatch See Detail Microbiology Microbiology Results: Microbiology 12/22/24 16:46 Blood - Venous Blood Culture - Preliminary No growth after 24 hours. 12/22/24 16:40 Blood - Venous Blood Culture - Preliminary No growth after 24 hours. 12/09/24 08:54 Gastric Fluid Gram Stain - Final 12/09/24 08:54 Gastric Fluid Anaerobic Culture - Final 12/09/24 08:54 Gastric Fluid Body Fluid Culture - Final Klebsiella pneumoniae Flavia species Viridans streptococcus group 12/05/24 20:15 Peritoneal Fluid Gram Stain - Final 12/05/24 20:15 Peritoneal Fluid Routine Culture - Final Klebsiella pneumoniae Escherichia coli Bacillus species Pseudomonas species 12/05/24 20:15 Peritoneal Fluid Anaerobic Culture - Final 12/05/24 16:52 Blood - Venous Blood Culture - Final Escherichia coli Bacteroides fragilis group 12/05/24 16:52 Blood - Venous Blood Culture - Final Escherichia coli Bacteroides fragilis group Progress Note: A&P Assessment and plan (1) Atrial fibrillation with tachycardic ventricular rate: Status: Acute (2) Prolonged QT interval: Status: Acute (3) Metabolic acidosis with normal anion gap and bicarbonate losses: Status: Acute (4) Anemia: Status: Acute (5) Colon cancer: Status: Acute (6) ARDS (adult respiratory distress syndrome): Status: Acute (7) Acute hypoxemic respiratory failure: Status: Acute Plan Cardiogenic Shock: currently off vasopressor support Paroxysmal atrial fibrillation: Previously received amiodarone and one episode this morning treated with digoxin rate around 100s Not on anticoagulation due to anemia Respiratory: extubated yesterday, breathing stable. GI: Stage IV colon cancer with sigmoid colon perforation, status post ex laparotomy, drain draining pus. will resend cultures CT abdomen and pelvis showed small fluid collection in the right lower quadrant, IR was consulted for drainage but could not locate the abscess as it was small. continue PPN for nutrition until his oral diet has significantly improved Renal: renal function normal We will closely monitor I's and O's Avoid nephrotoxic medications Heme: Chronic anemia, closely monitor H&H, transfuse for hemoglobin less than 7 grams/deciliter receiving 1 unit PRBC this morning Endocrine: Diabetes mellitus, HbA1c 6.8 Sliding scale insulin as needed Infectious disease: peritoneal fluid growing Klebsiela, flavia, strep viridan, ecoli, bacillus and pseudomonas he has been on multiple Abx current on Flagyl, meropenem and caspofungin, ID recommendation is for Meropenem, metronidazole, caspofungin, Augmentin, and Flagyl for 2 weeks at discharge. will resend cultures from abdominal secretions. Musculoskeletal: Decubitus ulcer prevention protocol Lines: peripheral Sanchez for retention Prophylaxis: Heparin, pantoprazole Patient is alert oriented x3, has some NSAIDs days states he does not want to continue treatment as his disease does not have a cure. He wants to transition to hospice care. Updated his healthcare proxy, we will have a discussion with his healthcare proxy this evening. Quality Stroke Does the patient have a stroke diagnosis?: No VTE Prior VTE?: No VTE Risk Level:: Medical - moderate - high VTE Device Contraindication: N/A - Device Ordered VTE Drug Contraindication: N/A - Med Ordered
[2024-12-24 09:34] LABS: OBS Int Ctl Valid YES; OBS1 NEGATIVE (NEGATIVE)
--- NOTE | 2024-12-24 11:11 | MHC.CLN ---
F/U EXTUBATED 12/23. CONTINUE PPN FOR NUTRITION/HYDRATION. LABS REVIEWED. COMMUNICATED WITH PHARMACY. RECOMMEND PPN AT 100 ML PER HOUR TO PROVIDE 102 G PROTEIN (1.6 G/KG IBW), 240 G DEXTROSE, 1224 KCALS (18.9 KCALS/KG IBW). REPLETE LYTES NEEDED. CHECK TRIGLYCERIDES. SKIN WITH DTI TO COCCYX AND DTI TO OCCIPUT. FOLLOW FOR NUTRITIONAL NEEDS, DIET ADVANCEMENT, PLAN OF CARE.
[2024-12-24 12:47] LABS: Glucose, Whole Blood 144 mg/dL (60-115)
--- NOTE | 2024-12-24 14:35 | MHC.CM.PN ---
Pt extubated - alert and verbal: multiple clinical issues including laparotomy site dehiscense, sepsis, new ostomy and metastatic disease. MD to have goals of care discussion w/pt - CM to follow for finalization of d/c planning needs. Pt will need placement following hospitalization - referrals made
--- NOTE | 2024-12-24 15:25 | MHC.SL.SWA ---
Speech Pathologist Impression: Risk of Aspiration Due to: Dysphasia Diet Status: Recommend UPGRADE Diet to Ground Mechanical (NDD2) to start, with THIN liquids, pills whole in puree or with liquid as preferred by patient/RN. Liquid Consistency and Strategies for Safe Swallow: Liquid Intake Recommendation: Thin Liquid Intake Strategies: Small Sips Solid Food Consistency: Dietary Recommendations: Grnd/Mech Altered (NDD2) Additional Modifications to Solid Foods: Liquids by supported cup sip or single sip by straw (controlled straw sip). Encourage transition to independent feeding, however patient currently likely needing full assistance with meals. Oral Medication Intake: Whole with Puree Please contact the pharmacy regarding appropriate crushable or liquid drug formulations that are available whenever modified delivery is recommended. Compensatory Strategies and Precautions to be Taken for Safe Swallow: Sitting Upright (90 deg) Liquids from Cup Liquids from Straw Small Bites and Sips Alternate Liquids/Solids Supervision While Eating and Drinking for Safe Swallow: Total Assistance (1:1) Foods to Avoid: Mixed consistencies, difficult to chew solids. Swallowing Recommended Treatments: Compens. Strategy Educat. Recommendation for Speech: Further Testing Needed Comment: Pt extubated 12/23/24. Per RN he had passed RN swallow screen, had been given water and an ice pop and meds in puree over the past 24 hours. Patient prior to reintubation was on puree diet with nectar thick liquids. On assessment today, patient was awake and alert, presents with vocal aphonia and difficult producing a cough. Patient still attempting to communicate verbally with whispered speech, required close attention to understand. Patient's overall strength appears improved from last week when initially seen, face is more expressive and less flaccid, patient today was able to hold and lift a cup. Patient given water by tsp, assisted cup sip and single straw sip, with patient producing a timely swallow and no clinical signs of aspiration. Patient did report water felt like it was tickling' in his throat. Patient then given puree, with patient producing a timely oral and pharyngeal phase of swallow, no residual noted after swallow. On softened cracker, patient produced a rotary chew, timely swallow. ON hard cracker in puree, slightly more prolonged period of mastication, followed by timely swallow, with patient requesting a sip of liquid after this consistency. Recommend UPGRADE Diet to Ground Mechanical (NDD2) to start, with THIN liquids, pills whole in puree or with liquid as preferred by patient/RN. BROADCASTER will continue to follow for tolerance, likely upgrade of diet as patient continues to improve. MD, RN advised of recommendations in person. Frequency/Duration: Date Range for Service Req: Timeline to reassess: Vending Route Servicer Clinican/Clinical Fellow: No Supervisory Statement: I have reviewed and agree with the student/clinical fellow's documentation: N/A Speech Language Pathologist: Joann Hull M.A., CCC-BROADCASTER
[2024-12-24 17:27] LABS: Glucose, Whole Blood 130 mg/dL (60-115)
--- NOTE | 2024-12-24 19:08 | PC.NURSE ---
Assumed care at 0700- pt. A&Ox4, confused at times. Initially afib on tele, HR 100s-130s, pt. then converted to SR at approx. 1015, HR 70s-90s. Ostomy emptied x2, total 400cc liquid brown output. Midline surgical incision with dark brown drainage- surgical PA at bedside for dsg change this AM. LEÓN zara emptied x1 for 50cc dark brown output. Pt. c/o increased abd pain, PRN dilaudid given per MAR with good effect. Sanchez remains in place. Q2 repositioning and oral care provided. 1 U RBCs infused per TAR. [facility] first assistant manager and flavor room worker at bedside per pt. request. goals of care discussion held with pt., HCP, and MD. Plan of care ongoing.
[2024-12-24] MEDS: Parenteral Nutrition 2,400 ML 100 ML IV (20:13)
[2024-12-25] VITALS (8 sets, daily range): BP systolic 120–135; BP diastolic 70–78; PULSE 78–95; RESP 17–20; TEMP 36.5–38.6; O2SAT 94–97; BMI 31.7
[2024-12-25 06:26] LABS: Glucose, Whole Blood 141 mg/dL (60-115)
[2024-12-25 06:26] LABS: Glucose, Whole Blood 136 mg/dL (60-115)
[2024-12-25 06:37] LABS: Triglycerides 76 mg/dL (<150)
[2024-12-25 07:01] LABS: Alanine Aminotransferase 8 U/L (0-40); Albumin Level 2.9 g/dL (3.5-5.0); Alkaline Phosphatase 71 U/L (39-117); Anion Gap 10 (12-20); Aspartate Amino Transferase 28 U/L (5-37); Blood Urea Nitrogen 15 mg/dL (9-16); Calcium 8.4 mg/dL (8.4-10.2); Carbon Dioxide 24 mmol/L (22-29); Chloride 106 mmol/L (96-108); Creatinine Clr Calc Pharmacy 136.9; Estimated Glomerular Filt Rate > 60; Magnesium 2.0 mg/dL (1.6-2.6); Potassium 4.3 mmol/L (3.3-5.1); Sodium 136 mmol/L (135-145); Total Protein 5.9 g/dL (6.5-8.0)
--- NOTE | 2024-12-25 08:04 | P.PNGS_ITS ---
Subjective Subjective Date of Service: 12/26/24 Interval history: Transferred from the ICU last Says he is short of breath Appears very weak and frail Stoma functioning, with good output Physical Exam 2 Vital Signs: Vital Signs: Last Vital Signs Temp 101.4 F H 12/25/24 07:56 Pulse 89 12/25/24 07:56 Resp 17 12/25/24 07:56 BP 120/74 12/25/24 07:56 Pulse Ox 96 12/25/24 07:56 O2 Del Method Nasal Cannula 12/25/24 07:56 O2 Flow Rate 1 12/25/24 07:56 FiO2 25 12/23/24 15:40 BMI result Body Mass Index 31.7 Const: Other: Appears short of breath Resp: Other: Short of breath Cardio: Rate: regular rate GI: Other: Stoma with good output, large amounts of pus from the open part of the lower midline, small fascial defect, stoma functioning was, LEÓN drain in place, also with pus Palpation (GI): Soft to palpation Objective Data Active Medications Acetaminophen (Acetaminophen 325 Mg Tablet) 650 mg PO Q6H PRN PRN Reason: Pain, Moderate(Pain Scale 4-6) Last Admin: 12/19/24 12:15 Dose: 650 mg Documented By: EMIL Collagenase (Collagenase Clostridium Hist. 30 Gm Tube) 1 appl TOPICAL DAILY [facility]; Protocol Last Admin: 12/24/24 08:31 Dose: 1 appl Documented By: JENA Dextrose (Dextrose 50 % 25 Gm/50 Ml Syringe) 25 gm IVPUSH Q15M PRN; Protocol PRN Reason: per Hypoglycemia Standing Ord. Famotidine (Famotidine/Pf 20 Mg/2 Ml Vial) 20 mg IVPUSH DAILY [facility] Last Admin: 12/24/24 10:38 Dose: 20 mg Documented By: RAYMOND Glucose (Glucose Gel 15 Gm Gel..Gram.) 15 gm PO Q15M PRN; Protocol PRN Reason: per Hypoglycemia Standing Ord. Hydrocortisone (Hydrocortisone 1 % Cream 28.35 Gm Tube) 1 appl TOPICAL BID [facility]; Protocol Last Admin: 12/24/24 20:55 Dose: Not Given Documented By: MANISH Non-Admin Reason: Med Not Available Hydromorphone HCl (Hydromorphone Hcl 0.5 Mg/0.5 Ml Syringe) 0.5 mg IVPUSH Q4H PRN; Protocol PRN Reason: Pain, Moderate(Pain Scale 4-6) Last Admin: 12/25/24 02:03 Dose: 0.5 mg Documented By: JULIA Caspofungin 50 mg/ Sodium (Chloride) 250 mls @ 250 mls/hr IV Q24H [facility] Last Infusion: 12/24/24 13:14 Dose: Infused Documented By: JENA Nutrition (Parenteral) (Parenteral Nutrition) 2,400 mls @ 100 mls/hr IV .Q24H [facility]; Protocol Stop: 12/25/24 20:59 Last Admin: 12/24/24 20:13 Dose: 100 mls/hr Documented By: MANISH Insulin Glargine (Insulin Glargine,Hum.Rec.Anlog 100 Unit/Ml 10 Ml Vial) 20 unit SUBCUT DAILY [facility] Last Admin: 12/24/24 08:30 Dose: Not Given Documented By: JENA Non-Admin Reason: Physician Held Med Insulin Human Lispro (Insulin Lispro 100 Unit/Ml 3 Ml Vial) 0 unit SUBCUT Q6H [facility]; Protocol Last Admin: 12/25/24 06:31 Dose: Not Given Documented By: JULIA Non-Admin Reason: No Insulin Coverage Pharmacy Consult (Consult Rx Parenteral Nutrition Ordering) 1 each MISCELLANE DAILY PRN PRN Reason: Consult order Sodium Chloride (0.9 % Sodium Chloride Flush 3 Ml Syringe) 3 ml IVFLUSH QSHIFT [facility] Last Admin: 12/24/24 23:13 Dose: Not Given Documented By: JULIA Non-Admin Reason: IV Running Labs 12/24/24 04:50 12/26/24 06:37 Labs: Laboratory Results - last 24 hr 12/24/24 12/24/24 12/24/24 07:04 08:19 12:44 Hold Purple Top Anion Gap Estim Creat Clear Calc Estimated GFR POC Glucose 144 H Random Glucose Calcium Phosphorus Magnesium Total Bilirubin AST ALT Alkaline Phosphatase Total Protein Albumin Triglycerides Stool Occult Blood NEGATIVE Blood Type O Positive Antibody Screen NEGATIVE Crossmatch See Detail 12/24/24 12/24/24 12/25/24 17:23 23:55 06:09 Hold Purple Top SEE NOTE Anion Gap 10 L Estim Creat Clear Calc 136.9 Estimated GFR > 60 POC Glucose 130 H 136 H Random Glucose 151 H Calcium 8.4 D Phosphorus 2.3 L Magnesium 2.0 Total Bilirubin 0.5 AST 28 ALT 8 Alkaline Phosphatase 71 Total Protein 5.9 L Albumin 2.9 L Triglycerides 76 Stool Occult Blood Blood Type Antibody Screen Crossmatch 12/25/24 06:18 Hold Purple Top Anion Gap Estim Creat Clear Calc Estimated GFR POC Glucose 141 H Random Glucose Calcium Phosphorus Magnesium Total Bilirubin AST ALT Alkaline Phosphatase Total Protein Albumin Triglycerides Stool Occult Blood Blood Type Antibody Screen Crossmatch Microbiology Microbiology Results: Microbiology 12/22/24 16:46 Blood Culture - Preliminary Blood - Venous No growth after 48 hours. 12/22/24 16:40 Blood Culture - Preliminary Blood - Venous No growth after 48 hours. Procedures Date of Service Date of Service: 12/26/24 Progress Note: A&P Assessment and plan (1) Perforated viscus: Status: Acute Assessment and Plan: Status post sigmoid resection and end-colostomy With advanced metastatic colon cancer Currently short of breath Prognosis poor Dressings changed on the midline incision Currently on peripheral parenteral nutrition We will review goals of care with family Currently DNR DNI Time Spent With Patient Time: Total time managing care of this patient today ____ minutes. Quality Stroke Does the patient have a stroke diagnosis?: No VTE Prior VTE?: No VTE Risk Level:: Medical - moderate - high VTE Device Contraindication: N/A - Device Ordered VTE Drug Contraindication: N/A - Med Ordered
[2024-12-25] MEDS: Insulin Glargine,Hum.rec.anlog 100 UNIT/ML 10 ML VIAL 20 UNIT SUBCUT (08:30)
[2024-12-25] MEDS: 0.9 % Sodium Chloride Flush 3 ML SYRINGE IVFLUSH ×2 (08:35→15:34)
--- NOTE | 2024-12-25 09:16 | HO.WOUND ---
Wound Consult: Follow up 54 yr old?male admitted to [facility] on 12/05/24 - See progress notes and H&P for detailed history.? Wound consult follow up. Patient was recently transferred back to [facility] out of ICU level of care. Patient remains weak with a complex hospital admission - see provider notes for details of admission. Goals of care discussions are on going he has recently transitioned to DNR code status and remains critically ill with a poor prognosis. ? Of note the patient has a new ostomy created this admission. He is not ready or appropriate for teaching at this time - continues with weakness and difficulty concentrating. Agility Specialty Bed ordered today for treatment and comfort. No new topical orders needed at this time. Recommendations: 1. Turn and Reposition every 2 hours and as needed for patient comfort.? Use pillows or wedges to support off loading positions. 2. Off Load all bony prominences with use of pillows and heel boots if needed.? Apply Preventative foams where needed. ? 3. Monitor for incontinence and moisture control, use barrier creams when needed for prevention and treatment. 4. Provide adequate and supplemental nutrition.? 5. Continue low air loss mattress. Agility TEMITOPE Pulsate bed ordered. 6. When applicable maintain blood glucose levels per Providers order. Occiput - Off Load Pressure with Q2 hr turns and use of Mizuho pillow - Cleanse with PH balance spray or wipes, pat dry. ?May leave SADIA at this time as it continues to resolve. Sacrum - Off Load Pressure with Q2 hr turns and use of pillows - Cleanse with PH balance spray or wipes, pat dry. ?Apply barrier to the immediate priyanka wound, apply thick layer of Santyl to entire wound bed, cover with saline moist gauze, cover with dry gauze, ABD pad, change Daily. Midline - defer to general surgery providers. Details from prior assessment: Stoma - red moist almost flat to skin level. Pouch changed today without issue template left at bedside cute to oval [id number] flat 1 piece [id number] coloplast - peristomal tissue remains intact - there is a small area of necrotic tissue noted at 6 o'clock - treated with Brava Strip Paste to aid in moist wound healing and autolytic debridement. Will follow along for osotmy teaching readiness. 12/16/24 12/22/24 Sacrum Etiology: ?Deep tissue Injury ? Wound Bed: continues to evolve areas of improvement noted- central area is in evolution Drainage / Odor: none noted at this time Edges: ? irregular Priyanka wound: ?dark red pink tissue - slow to maxwell tissue - No Induration, Fluctuance or Warmth noted Goals of Treatment: ? off load pressure consider switching to Medihoney or Santly or debridement Dr. Wright to consult and assess wound bed for expert opinion. 12/16/24 Post clipping 12/22/24 Occiput Etiology: Resolving Deep Tissue injury ? Wound Bed: improving drying epidermal layer maroon purple nonblanchable tissue remains but improving Drainage / Odor: None Edges: ? irregular Priyanka wound: intact tissue No Induration, Fluctuance or Warmth noted Goals of Treatment: ? May leave open to air - routine hair care washing and brushing Midline - Surgical Site - Dehiscence ??No updated photo - Surgery Managing - with wet to moist dressing - see note from today 12/22/24 - will defer topical care to General Surgery Team will discontinue dressing orders as no longer needed Iodosorb per general surg note today 12/22/24. Surgical Site - Dehiscence ?? New topical order below: Midline - Gently cleanse with NS, Lightly pack wound with saline wet gauze, cover with dry gauze and ABD pad. Change daily and reinforce as needed. Recommendations: 1. Turn and Reposition every 2 hours and as needed for patient comfort.? Use pillows or wedges to support off loading positions. 2. Off Load all bony prominences with use of pillows and heel boots if needed.? Apply Preventative foams where needed. ? 3. Monitor for incontinence and moisture control, use barrier creams when needed for prevention and treatment. 4. Provide adequate and supplemental nutrition.? 5. Continue low air loss mattress. 6. When applicable maintain blood glucose levels per Providers order. Occiput - Off Load Pressure with Q2 hr turns and use of Mizuho pillow - Cleanse with PH balance spray or wipes, pat dry. ?May leave POLITICAL THEORY PROFESSOR at this time as it continues to resolve. Sacrum - Off Load Pressure with Q2 hr turns and use of pillows - Cleanse with PH balance spray or wipes, pat dry. ?Apply barrier to the immediate priyanka wound, apply thick layer of Santyl to entire wound bed, cover with saline moist gauze, cover with dry gauze, ABD pad, change Daily. Midline - Gently cleanse with NS moist gauze, lightly pack midline with saline wet gauze, cover with dry gauze and ABD pad. Change daily and reinforce as needed.
[2024-12-25 11:34] LABS: Glucose, Whole Blood 163 mg/dL (60-115)
--- NOTE | 2024-12-25 11:58 | MHC.CLN ---
F/U CONTINUES PPN FOR SUPPLEMENTAL NUTRITION/HYDRATION. DIET= [id number] KCALS, GROUND. LIBERALIZING DIET TO REGULAR, GROUND TO PROVIDE FOOD PREFS AND PROMOTE PO INTAKE. LABS REVIEWED. COMMUNICATED WITH PHARMACY. RECOMMEND PPN AT 100 ML PER HOUR TO PROVIDE 102 G PROTEIN (1.6 G/KG IBW), 240 G DEXTROSE, 1224 KCALS (18.9 KCALS/KG IBW). REPLETE LYTES NEEDED. NO LIPIDS AT THIS TIME. SKIN WITH DTI TO COCCYX AND DTI TO OCCIPUT. FOLLOW FOR NUTRITIONAL NEEDS, DIET ADVANCEMENT, PLAN OF CARE.
[2024-12-25] MEDS: Hydrocortisone 1 % Cream 28.35 GM TUBE 1 APPL TOPICAL ×2 (12:33→21:05)
--- NOTE | 2024-12-25 12:41 | PM.EVENT ---
Event Note Date of Service: 12/25/24 Event Note: Seen on afternoon rounds He continues to have fevers spikes He is lucid and conversant Remains short of breath He stated that he does not want any further invasive measures including intubation or resuscitation He wants to be on comfort measures Pain control with Dilaudid I will discuss this with his aunt Chioma Lovelace poor Time Spent With Patient Time: Total time managing care of this patient today ____ minutes.
--- NOTE | 2024-12-25 14:15 | HO.PM.IMPN ---
Subjective Subjective Date of Service: 12/25/24 Interval History: Patient was transfered out of ICU yesterday, just 2 days after transfer to ICU d/t unresponsiveness and for airway protection Over appear to be in bad shape, vital stable, however Physical Exam Vital Signs: Vital Signs: Last Vital Signs Temp 101.2 F H 12/25/24 11:38 Pulse 78 12/25/24 13:56 Resp 17 12/25/24 11:38 BP 127/70 12/25/24 13:56 Pulse Ox 95 12/25/24 13:56 O2 Del Method Nasal Cannula 12/25/24 11:38 O2 Flow Rate 1 12/25/24 11:38 FiO2 25 12/23/24 15:40 BMI result Body Mass Index 31.7 Const: Other: General: Deppressed Resp: CTA bilateral CVS: S1,S2,RRR, some swelling in legs GI: +BS, NT, no distention, ostomy in place Skin: No rash Neuro: motor grossly intact Psych: appropriate affect Objective Data Active Medications Acetaminophen (Acetaminophen 325 Mg Tablet) 650 mg PO Q6H PRN PRN Reason: Fever Last Admin: 12/25/24 10:28 Dose: 650 mg Documented By: POLINA Collagenase (Collagenase Clostridium Hist. 30 Gm Tube) 1 appl TOPICAL DAILY [facility]; Protocol Last Admin: 12/25/24 10:31 Dose: 1 appl Documented By: POLINA Dextrose (Dextrose 50 % 25 Gm/50 Ml Syringe) 25 gm IVPUSH Q15M PRN; Protocol PRN Reason: per Hypoglycemia Standing Ord. Famotidine (Famotidine/Pf 20 Mg/2 Ml Vial) 20 mg IVPUSH DAILY [facility] Last Admin: 12/25/24 08:30 Dose: 20 mg Documented By: POLINA Glucose (Glucose Gel 15 Gm Gel..Gram.) 15 gm PO Q15M PRN; Protocol PRN Reason: per Hypoglycemia Standing Ord. Hydrocortisone (Hydrocortisone 1 % Cream 28.35 Gm Tube) 1 appl TOPICAL BID [facility]; Protocol Last Admin: 12/25/24 12:33 Dose: 1 appl Documented By: POLINA Hydromorphone HCl (Hydromorphone Hcl 0.5 Mg/0.5 Ml Syringe) 0.5 mg IVPUSH Q2H PRN; Protocol PRN Reason: Pain, Moderate(Pain Scale 4-6) Nutrition (Parenteral) (Parenteral Nutrition) 2,400 mls @ 100 mls/hr IV .Q24H [facility]; Protocol Stop: 12/25/24 20:59 Last Admin: 12/24/24 20:13 Dose: 100 mls/hr Documented By: MANISH Nutrition (Parenteral) (Parenteral Nutrition) 2,400 mls @ 100 mls/hr IV .Q24H [facility]; Protocol Stop: 12/26/24 20:59 Insulin Glargine (Insulin Glargine,Hum.Rec.Anlog 100 Unit/Ml 10 Ml Vial) 20 unit SUBCUT DAILY [facility] Last Admin: 12/25/24 08:30 Dose: 20 unit Documented By: POLINA Insulin Human Lispro (Insulin Lispro 100 Unit/Ml 3 Ml Vial) 0 unit SUBCUT Q6H [facility]; Protocol Last Admin: 12/25/24 12:32 Dose: 2 unit Documented By: POLINA Pharmacy Consult (Consult Rx Parenteral Nutrition Ordering) 1 each MISCELLANE DAILY PRN PRN Reason: Consult order Sertraline HCl (Sertraline Hcl 25 Mg Tablet) 25 mg PO DAILY [facility] Last Admin: 12/25/24 10:29 Dose: 25 mg Documented By: POLINA Sodium Chloride (0.9 % Sodium Chloride Flush 3 Ml Syringe) 3 ml IVFLUSH QSHIFT [facility] Last Admin: 12/25/24 08:35 Dose: 3 ml Documented By: POLINA Labs 12/24/24 04:50 12/25/24 06:09 Labs: Laboratory Results - last 24 hr 12/24/24 12/24/24 12/25/24 17:23 23:55 06:09 Hold Purple Top SEE NOTE Anion Gap 10 L Estim Creat Clear Calc 136.9 Estimated GFR > 60 POC Glucose 130 H 136 H Random Glucose 151 H Calcium 8.4 D Phosphorus 2.3 L Magnesium 2.0 Total Bilirubin 0.5 AST 28 ALT 8 Alkaline Phosphatase 71 Total Protein 5.9 L Albumin 2.9 L Triglycerides 76 12/25/24 12/25/24 06:18 11:30 Hold Purple Top Anion Gap Estim Creat Clear Calc Estimated GFR POC Glucose 141 H 163 H Random Glucose Calcium Phosphorus Magnesium Total Bilirubin AST ALT Alkaline Phosphatase Total Protein Albumin Triglycerides Microbiology Microbiology Results: Microbiology 12/22/24 16:46 Blood Culture - Preliminary Blood - Venous No growth after 48 hours. 12/22/24 16:40 Blood Culture - Preliminary Blood - Venous No growth after 48 hours. 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 Hospital course further complicated by anemia, Cdif. On 12/22 he became unresponsive, and was intubated for airway protection and transfered to ICU again. Hwas extubated the next day 12/23 and transferd back to Med floor 12/24, unresponsiveness was likely d/t ativan Perforated colon with peritonitis, sepsis s/p colostomy on 11/16 peritoneal fluid has grown klebsiela, julieth, strep viridan, ecoli, bacillus and pseudomonas he has been on multiple Abx current on Flagyl, meropenem and caspofungus--presently not Abx E. coli and B. Fragilis bacteremia on presentation --treated as above Was seen by ID Paroxysmal AFIB, presently in sinus, intermitently goes into AFIB, and has been treated with amio and digoxin Had echo earlier in November, not candidate for anticoagulation given profound anemia Back in AFIB today with RVR, add metoprolol if not controlled, get cardiology Anemia likely from combination of chronic disease, colon cancer H/H is somehow low but stable, continue to monitor and only transfuse if hgb is less than 7 Colon cancer, outpatient follow up with oncology mild to moderate malnutrition, supplement Hyperglycemia? diabetes on lantus, check A1Cn 6.8 diabetic diet and sliding scale insulin ? SI/pt is just depressed d/t ongoing medical issues with no intention to harm self, continue monitoring, consider psych consult he is denying SI at this time, so hold sitter no indication for continuous cardiac monitoring at this time Overall prognosis, goals of care conversations to be had DVT prophylaxis: Heparin Full Code No longer needs Quality Stroke Does the patient have a stroke diagnosis?: No VTE Prior VTE?: No VTE Risk Level:: Medical - moderate - high VTE Device Contraindication: N/A - Device Ordered VTE Drug Contraindication: N/A - Med Ordered
--- NOTE | 2024-12-25 15:01 | MHC.CM.PN ---
Per rounds, pt is not ready to DC, goals of care to be determined, CM to follow for DC planning, SNF referrals updated.
--- NOTE | 2024-12-25 16:51 | MHC.SL.SWA ---
Speech Pathologist Impression: Risk of Aspiration, Aphonia, Oropharyngeal Dysphagia Risk of Aspiration Due to:Weak/Absent C ough Dysphasia Diet Status: No Change Liquid Consistency and Strategies for Safe Swallow: Liquid Intake Recommendation: Thin Liquid Intake Strategies: Small Sips Solid Food Consistency: Dietary Recommendations: Grnd/Mech Altered (NDD2) Additional Modifications to Solid Foods: Liquids by supported cup sip or single sip by straw (controlled straw sip): ONE SIP AT A TIME. Encourage transition to independent feeding, however patient currently likely needing full assistance with meals. Oral Medication Intake: Whole with Puree Please contact the pharmacy regarding appropriate crushable or liquid drug formulations that are available whenever modified delivery is recommended. Compensatory Strategies and Precautions to be Taken for Safe Swallow: Sitting Upright (90 deg) Liquids from Cup Liquids from Straw Small Bites and Sips Alternate Liquids/Solids Supervision While Eating and Drinking for Safe Swallow: Total Assistance (1:1) Foods to Avoid: Mixed consistencies, difficult to chew solids. Swallowing Recommended Treatments: Compens. Strategy Educat. Recommendation for Speech: Inpatient Liquid Natural Gas Plant Operator Clinican/Clinical Fellow: No Supervisory Statement: I have reviewed and agree with the student/clinical fellow's documentation: N/A Speech Language Pathologist: Lucia Ng M.A., CCC-ENVIRONMENTAL EDUCATOR
--- NOTE | 2024-12-25 17:43 | PM.EVENT ---
Event Note Date of Service: 12/26/24 Event Note: Had a meeting with family and patient in the room Healthcare proxy Chioma, aunts and cousins were in the room He had stated that he does not want any further aggressive/invasive measures He does not want any intubation or resuscitation The entire family understand his overall poor prognosis We will continue with pain management We can continue with antibiotics for now Time Spent With Patient Time: Total time managing care of this patient today ____ minutes.
[2024-12-25 18:03] LABS: Glucose, Whole Blood 166 mg/dL (60-115)
[2024-12-25] MEDS: Parenteral Nutrition 2,400 ML 100 ML IV (20:58)
[2024-12-25] MEDS: diazePAM 10 MG/2 ML CARTRIDGE 5 MG IVPUSH (23:08)
[2024-12-26] VITALS (7 sets, daily range): BP systolic 116–136; BP diastolic 69–77; PULSE 71–89; RESP 13–22; TEMP 36.7–37.9; O2SAT 2–96; BMI 25.3
[2024-12-26 00:26] LABS: Glucose, Whole Blood 130 mg/dL (60-115)
[2024-12-26 06:13] LABS: Glucose, Whole Blood 114 mg/dL (60-115)
[2024-12-26 07:12] LABS: Alanine Aminotransferase 13 U/L (0-40); Albumin Level 3.2 g/dL (3.5-5.0); Alkaline Phosphatase 81 U/L (39-117); Anion Gap 10 (12-20); Aspartate Amino Transferase 35 U/L (5-37); Blood Urea Nitrogen 14 mg/dL (9-16); Calcium 8.7 mg/dL (8.4-10.2); Carbon Dioxide 26 mmol/L (22-29); Chloride 102 mmol/L (96-108); Creatinine Clr Calc Pharmacy 130.5; Estimated Glomerular Filt Rate > 60; Magnesium 2.1 mg/dL (1.6-2.6); Potassium 4.4 mmol/L (3.3-5.1); Sodium 134 mmol/L (135-145); Total Protein 6.2 g/dL (6.5-8.0)
[2024-12-26 07:15] LABS: Glucose, Whole Blood 126 mg/dL (60-115)
[2024-12-26] MEDS: Hydrocortisone 1 % Cream 28.35 GM TUBE 1 APPL TOPICAL ×2 (07:48→21:30)
[2024-12-26] MEDS: Insulin Glargine,Hum.rec.anlog 100 UNIT/ML 10 ML VIAL 20 UNIT SUBCUT (07:49)
[2024-12-26] MEDS: 0.9 % Sodium Chloride Flush 3 ML SYRINGE IVFLUSH ×2 (07:50→16:58)
--- NOTE | 2024-12-26 08:48 | HO.PM.IMPN ---
Subjective Subjective Date of Service: 12/26/24 Interval History: Seen and examined in consult Interval history: Patient weak and diaphoretic but lucid and conversive. He wants comfort measures but states keep me alive . He wants to discontinue PPN but keep PO diet though only drinking and tolerated soft foods as he does not have much of an appetite. Would like his pain better controlled. Wants to have further discussion with family once they arrive. Physical Exam Vital Signs: Vital Signs: Last Vital Signs Temp 98.0 F 12/26/24 08:00 Pulse 82 12/26/24 08:00 Resp 16 12/26/24 08:00 BP 116/69 12/26/24 08:00 Pulse Ox 95 12/26/24 08:00 O2 Del Method Nasal Cannula 12/26/24 08:00 O2 Flow Rate 2 12/26/24 08:00 FiO2 25 12/23/24 15:40 BMI result Body Mass Index 25.3 EXAM: Constitutional - Awake but weak and diaphoretic, No apparent distress Eyes - PERRL Cardiovascular - S1S2, RRR, No edema Respiratory - Normal lung expansion, Normal respiratory effort, No respiratory distress, CTA bilaterally GI - and softly distended, midline incision with dressing in place. LEÓN drain with purulent drainage. Stoma with yellow/brown output Extremities - no calf tenderness bilaterally, no swelling Skin - Warm/Dry Neurological - Alert & oriented x3 Psychological - Appropriate affect Objective Data Active Medications Acetaminophen (Acetaminophen 325 Mg Tablet) 650 mg PO Q6H PRN PRN Reason: Fever Last Admin: 12/25/24 21:34 Dose: 650 mg Documented By: JULIA Collagenase (Collagenase Clostridium Hist. 30 Gm Tube) 1 appl TOPICAL DAILY [facility]; Protocol Last Admin: 12/26/24 07:48 Dose: 1 appl Documented By: POLINA Dextrose (Dextrose 50 % 25 Gm/50 Ml Syringe) 25 gm IVPUSH Q15M PRN; Protocol PRN Reason: per Hypoglycemia Standing Ord. Famotidine (Famotidine/Pf 20 Mg/2 Ml Vial) 20 mg IVPUSH DAILY [facility] Last Admin: 12/26/24 07:48 Dose: 20 mg Documented By: POLINA Glucose (Glucose Gel 15 Gm Gel..Gram.) 15 gm PO Q15M PRN; Protocol PRN Reason: per Hypoglycemia Standing Ord. Hydrocortisone (Hydrocortisone 1 % Cream 28.35 Gm Tube) 1 appl TOPICAL BID [facility]; Protocol Last Admin: 12/26/24 07:48 Dose: 1 appl Documented By: POLINA Hydromorphone HCl (Hydromorphone Hcl 0.5 Mg/0.5 Ml Syringe) 0.5 mg IVPUSH Q2H PRN; Protocol PRN Reason: Pain, Moderate(Pain Scale 4-6) Last Admin: 12/26/24 08:24 Dose: 0.5 mg Documented By: CUBA Nutrition (Parenteral) (Parenteral Nutrition) 2,400 mls @ 100 mls/hr IV .Q24H [facility]; Protocol Stop: 12/26/24 20:59 Last Admin: 12/25/24 20:58 Dose: 100 mls/hr Documented By: JULIA Insulin Glargine (Insulin Glargine,Hum.Rec.Anlog 100 Unit/Ml 10 Ml Vial) 20 unit SUBCUT DAILY [facility] Last Admin: 12/26/24 07:49 Dose: 20 unit Documented By: POLINA Insulin Human Lispro (Insulin Lispro 100 Unit/Ml 3 Ml Vial) 0 unit SUBCUT Q6H [facility]; Protocol Last Admin: 12/26/24 06:11 Dose: Not Given Documented By: JULIA Non-Admin Reason: No Insulin Coverage Pharmacy Consult (Consult Rx Parenteral Nutrition Ordering) 1 each MISCELLANE DAILY PRN PRN Reason: Consult order Sertraline HCl (Sertraline Hcl 25 Mg Tablet) 25 mg PO DAILY [facility] Last Admin: 12/26/24 07:49 Dose: 25 mg Documented By: POLINA Sodium Chloride (0.9 % Sodium Chloride Flush 3 Ml Syringe) 3 ml IVFLUSH QSHIFT [facility] Last Admin: 12/26/24 07:50 Dose: 3 ml Documented By: POLINA Labs 12/24/24 04:50 12/26/24 06:37 Labs: Laboratory Results - last 24 hr 12/25/24 12/25/24 12/26/24 11:30 18:00 00:21 Hold Purple Top Anion Gap Estim Creat Clear Calc Estimated GFR POC Glucose 163 H 166 H 130 H Random Glucose Calcium Phosphorus Magnesium Total Bilirubin AST ALT Alkaline Phosphatase Total Protein Albumin 0712/26/24 12/26/24 06:08 06:36 06:37 Hold Purple Top SEE NOTE Anion Gap 10 L Estim Creat Clear Calc 130.5 Estimated GFR > 60 POC Glucose 114 Random Glucose 124 H Calcium 8.7 Phosphorus 3.2 Magnesium 2.1 Total Bilirubin 0.5 AST 35 ALT 13 Alkaline Phosphatase 81 Total Protein 6.2 L Albumin 3.2 L 12/26/24 07:11 Hold Purple Top Anion Gap Estim Creat Clear Calc Estimated GFR POC Glucose 126 H Random Glucose Calcium Phosphorus Magnesium Total Bilirubin AST ALT Alkaline Phosphatase Total Protein Albumin Assessment and Plan (1) Diverticulitis of colon with perforation: Status: Acute (2) Peritonitis: Status: Acute Plan 54M PMH 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 Hospital course further complicated by anemia, Cdif. On 12/22 he became unresponsive, and was intubated for airway protection and transfered to ICU again. Hwas extubated the next day 12/23 and transferd back to Med floor 12/24, unresponsiveness was likely d/t ativan Comfort Measures Pt acknowledges poor prognosis and continues to reiterate desires comfort Goals of care conversation had with family yesterday. At that time wanted abx continued, however patient would like them discontinued Wants ppn discontinued and comfort orders. Placed order for hydromorphone drip, Ativan p.r.n., Haldol p.r.n., scopolamine Further orders to be discontinued upon family arrival at patient request Perforated colon with peritonitis, sepsis s/p colostomy on 11/16 peritoneal fluid has grown klebsiela, julieth, strep viridan, ecoli, bacillus and pseudomonas he has been on multiple Abx current on Flagyl, meropenem and caspofungus--presently not Abx E. coli and B. Fragilis bacteremia on presentation --treated as above Was seen by ID Paroxysmal AFIB, presently in sinus, intermitently goes into AFIB, and has been treated with amio and digoxin Had echo earlier in November, not candidate for anticoagulation given profound anemia Back in AFIB today with RVR, add metoprolol if not controlled for now, get cardiology Anemia likely from combination of chronic disease, colon cancer H/H is somehow low but stable, continue to monitor and only transfuse if hgb is less than 7 Colon cancer, outpatient follow up with oncology mild to moderate malnutrition. dc ppn per patient Hyperglycemia? diabetes on lantus, check A1Cn 6.8 diabetic diet and sliding scale insulin for now ? SI/pt is just depressed d/t ongoing medical issues with no intention to harm self, continue monitoring, consider psych consult he is denying SI at this time, so hold sitter no indication for continuous cardiac monitoring at this time Overall prognosis poor. As above DVT prophylaxis: Heparin Full Code Further discussion to be had upon family arrival later today. Discussed with Dr. Collazo Quality Stroke Does the patient have a stroke diagnosis?: No VTE Prior VTE?: No VTE Risk Level:: Medical - moderate - high VTE Device Contraindication: N/A - Device Ordered VTE Drug Contraindication: N/A - Med Ordered
--- NOTE | 2024-12-26 10:04 | MHC.CLN ---
F/U RECEIVING PPN FOR SUPPLEMENTAL NUTRITION/HYDRATION. LABS REVIEWED. COMMUNICATED WITH PHARMACY. PROVIDER TO CONFIRM PLAN OF CARE. IF PPN CONTINUES TODAY, RECOMMEND PPN AT 100 ML PER HOUR TO PROVIDE 102 G PROTEIN (1.6 G/KG IBW), 240 G DEXTROSE, 1224 KCALS (18.9 KCALS/KG IBW). REPLETE LYTES NEEDED. NO LIPIDS AT THIS TIME. SKIN WITH DTI TO COCCYX AND DTI TO OCCIPUT. FOLLOW FOR NUTRITIONAL NEEDS, PO INTAKE, PLAN OF CARE.
--- NOTE | 2024-12-26 10:25 | P.PNGS_ITS ---
Subjective Subjective Date of Service: 12/27/24 Interval history: Admits to pain No Events overnight Stoma functioning well Family conference last night Patient has reiterated he just wants to be comfortable Physical Exam 2 Vital Signs: Vital Signs: Last Vital Signs Temp 98.0 F 12/26/24 08:00 Pulse 82 12/26/24 08:00 Resp 16 12/26/24 08:00 BP 116/69 12/26/24 08:00 Pulse Ox 95 12/26/24 08:00 O2 Del Method Nasal Cannula 12/26/24 08:00 O2 Flow Rate 2 12/26/24 08:00 FiO2 25 12/23/24 15:40 BMI result Body Mass Index 25.3 Const: Other: Short of breath, conversant and lucid although frail looking Resp: Other: Some shortness of breath Cardio: Rate: regular rate GI: Other: Good stoma output, does not drainage from the lower midline incision, LEÓN drain with purulent fluid Palpation (GI): Soft to palpation, not firm and Tenderness to palpation present (GI) Objective Data Active Medications Acetaminophen (Acetaminophen 325 Mg Tablet) 650 mg PO Q6H PRN PRN Reason: Fever Last Admin: 12/25/24 21:34 Dose: 650 mg Documented By: JULIA Collagenase (Collagenase Clostridium Hist. 30 Gm Tube) 1 appl TOPICAL DAILY [facility]; Protocol Last Admin: 12/26/24 07:48 Dose: 1 appl Documented By: POLINA Dextrose (Dextrose 50 % 25 Gm/50 Ml Syringe) 25 gm IVPUSH Q15M PRN; Protocol PRN Reason: per Hypoglycemia Standing Ord. Famotidine (Famotidine/Pf 20 Mg/2 Ml Vial) 20 mg IVPUSH DAILY [facility] Last Admin: 12/26/24 07:48 Dose: 20 mg Documented By: POLINA Glucose (Glucose Gel 15 Gm Gel..Gram.) 15 gm PO Q15M PRN; Protocol PRN Reason: per Hypoglycemia Standing Ord. Hydrocortisone (Hydrocortisone 1 % Cream 28.35 Gm Tube) 1 appl TOPICAL BID [facility]; Protocol Last Admin: 12/26/24 07:48 Dose: 1 appl Documented By: POLINA Hydromorphone HCl (Hydromorphone Hcl 0.5 Mg/0.5 Ml Syringe) 1 mg IVPUSH Q2H PRN; Protocol PRN Reason: pain,severe Last Admin: 12/26/24 10:11 Dose: 1 mg Documented By: POLINA Nutrition (Parenteral) (Parenteral Nutrition) 2,400 mls @ 100 mls/hr IV .Q24H [facility]; Protocol Stop: 12/26/24 20:59 Last Admin: 12/25/24 20:58 Dose: 100 mls/hr Documented By: JULIA Nutrition (Parenteral) (Parenteral Nutrition) 2,400 mls @ 100 mls/hr IV .Q24H [facility]; Protocol Stop: 12/27/24 20:59 Insulin Glargine (Insulin Glargine,Hum.Rec.Anlog 100 Unit/Ml 10 Ml Vial) 20 unit SUBCUT DAILY [facility] Last Admin: 12/26/24 07:49 Dose: 20 unit Documented By: POLINA Insulin Human Lispro (Insulin Lispro 100 Unit/Ml 3 Ml Vial) 0 unit SUBCUT Q6H [facility]; Protocol Last Admin: 12/26/24 06:11 Dose: Not Given Documented By: JULIA Non-Admin Reason: No Insulin Coverage Oxycodone HCl (Oxycodone Hcl Immed Release 5 Mg Tablet) 10 mg PO Q4H PRN PRN Reason: Pain, Moderate(Pain Scale 4-6) Pharmacy Consult (Consult Rx Parenteral Nutrition Ordering) 1 each MISCELLANE DAILY PRN PRN Reason: Consult order Sertraline HCl (Sertraline Hcl 25 Mg Tablet) 25 mg PO DAILY [facility] Last Admin: 12/26/24 07:49 Dose: 25 mg Documented By: POLINA Sodium Chloride (0.9 % Sodium Chloride Flush 3 Ml Syringe) 3 ml IVFLUSH QSHIFT [facility] Last Admin: 12/26/24 07:50 Dose: 3 ml Documented By: POLINA Labs 12/24/24 04:50 12/26/24 06:37 Labs: Laboratory Results - last 24 hr 12/25/24 12/25/24 12/26/24 11:30 18:00 00:21 Hold Purple Top Anion Gap Estim Creat Clear Calc Estimated GFR POC Glucose 163 H 166 H 130 H Random Glucose Calcium Phosphorus Magnesium Total Bilirubin AST ALT Alkaline Phosphatase Total Protein Albumin 12/26/24 12/26/24 12/26/24 06:08 06:36 06:37 Hold Purple Top SEE NOTE Anion Gap 10 L Estim Creat Clear Calc 130.5 Estimated GFR > 60 POC Glucose 114 Random Glucose 124 H Calcium 8.7 Phosphorus 3.2 Magnesium 2.1 Total Bilirubin 0.5 AST 35 ALT 13 Alkaline Phosphatase 81 Total Protein 6.2 L Albumin 3.2 L 12/26/24 07:11 Hold Purple Top Anion Gap Estim Creat Clear Calc Estimated GFR POC Glucose 126 H Random Glucose Calcium Phosphorus Magnesium Total Bilirubin AST ALT Alkaline Phosphatase Total Protein Albumin Procedures Date of Service Date of Service: 12/27/24 Progress Note: A&P Assessment and plan (1) Perforated viscus: Status: Acute Assessment and Plan: Status post Nayal's procedure Remains very ill Has shortness of breath Purulent drainage from the lower midline incision as well as with the LEÓN drain Stoma however functioning well Continues to have periodic fever spike He says he does not want any further invasive measures including intubation, resuscitation He says he wants to be just comfortable with pain meds Family wants him to continue with IV antibiotics Dilaudid adjusted Time Spent With Patient Time: Total time managing care of this patient today ____ minutes. Quality Stroke Does the patient have a stroke diagnosis?: No VTE Prior VTE?: No VTE Risk Level:: Medical - moderate - high VTE Device Contraindication: N/A - Device Ordered VTE Drug Contraindication: N/A - Med Ordered
[2024-12-26 11:59] LABS: Glucose, Whole Blood 154 mg/dL (60-115)
--- NOTE | 2024-12-26 13:50 | PM.EVENT ---
Event Note Date of Service: 12/27/24 Event Note: Seen on afternoon rounds He reiterated that he wants to be on comfort measures only now I discussed this with the family and they are aware The family and the patient state that they are at peace with the plan He is on Dilaudid p.r.n. Vital signs currently stable although he does have fever spikes Time Spent With Patient Time: Total time managing care of this patient today ____ minutes.
--- NOTE | 2024-12-26 15:38 | MHC.CM.PN ---
Patient is [employer].
[2024-12-26] MEDS: HYDROmorphone HCl/NS 10 MG/50 ML PIGGYBACK 2 MG IV (16:34)
[2024-12-27] VITALS (9 sets, daily range): RESP 12–24
--- NOTE | 2024-12-27 08:02 | MHC.CLN ---
F/U PATIENT IS NOW COMFORT MEASURES ONLY. PPN DISCONTINUED. RD AVAILABLE NEEDED.
[2024-12-27] MEDS: Hydrocortisone 1 % Cream 28.35 GM TUBE 1 APPL TOPICAL ×2 (08:05→22:14)
[2024-12-27] MEDS: 0.9 % Sodium Chloride Flush 3 ML SYRINGE IVFLUSH ×2 (08:06→16:46)
[2024-12-27] MEDS: HYDROmorphone HCl/NS 10 MG/50 ML PIGGYBACK 4 MG IV (09:44)
--- NOTE | 2024-12-27 09:57 | PM.PNGS ---
Subjective Subjective Date of Service: 12/27/24 Interval history: On comfort measures Seems to have been comfortable with drip Still gets lucid and wakes up although very weak Physical Exam Vital Signs: Vital Signs: Last Vital Signs Temp 100.2 F 12/26/24 12:00 Pulse 89 12/26/24 12:00 Resp 22 H 12/27/24 09:44 BP 133/76 12/26/24 12:00 Pulse Ox 2 L 12/26/24 12:00 O2 Del Method Nasal Cannula 12/26/24 12:00 O2 Flow Rate 2 12/26/24 08:00 FiO2 25 12/23/24 15:40 BMI result Body Mass Index 25.3 Const: Other: Appears comfortable currently although very drowsy and weak Resp: Other: Mildly short of breath GI: Other: Stoma functioning well, LEÓN drain with thick purulent output, also with CML drainage from the lower part of the abdominal incision Palpation (GI): Soft to palpation and no guarding Objective Data Active Medications Acetaminophen (Acetaminophen 325 Mg Tablet) 650 mg PO Q6H PRN PRN Reason: Fever Last Admin: 12/25/24 21:34 Dose: 650 mg Documented By: JULIA Docusate Sodium (Docusate Sodium 100 Mg Capsule) 100 mg PO BEDTIME PRN PRN Reason: Constipation Haloperidol (Haloperidol 1 Mg Tablet) 1 mg PO Q4H PRN PRN Reason: Delirium Hydrocortisone (Hydrocortisone 1 % Cream 28.35 Gm Tube) 1 appl TOPICAL BID [facility]; Protocol Last Admin: 12/27/24 08:05 Dose: 1 appl Documented By: POLINA Hydromorphone HCl (Hydromorphone Hcl 0.5 Mg/0.5 Ml Syringe) 1 mg IVPUSH Q2H PRN; Protocol PRN Reason: pain,severe Last Admin: 12/26/24 12:40 Dose: 1 mg Documented By: CUBA Hydromorphone HCl (Dilaudid) 10 mg in 50 mls @ 0 mls/hr IV .Q0M [facility]; Protocol Last Admin: 12/27/24 09:44 Dose: 4 mls/hr Documented By: POLINA Lorazepam (Lorazepam 2 Mg/Ml Vial) 0.5 mg IVPUSH Q4H PRN PRN Reason: Myoclonic twitching/anxiety Ondansetron HCl (Ondansetron Odt 4 Mg Tab.Rapdis) 4 mg TRANSLINGU Q8H PRN PRN Reason: Nausea and Vomiting Pharmacy Consult (Consult Rx Parenteral Nutrition Ordering) 1 each MISCELLANE DAILY PRN PRN Reason: Consult order Scopolamine (Scopolamine 1.5 Mg Patch.Td.3) 1.5 mg TRANSDERMA Q72H PRN PRN Reason: Secretions Last Admin: 12/26/24 13:06 Dose: 1.5 mg Documented By: POLINA Sodium Chloride (0.9 % Sodium Chloride Flush 3 Ml Syringe) 3 ml IVFLUSH QSHIFT [facility] Last Admin: 12/27/24 08:06 Dose: 3 ml Documented By: POLINA Labs 12/24/24 04:50 12/26/24 06:37 Labs: Laboratory Results - last 24 hr 12/26/24 11:49 POC Glucose 154 H Procedures Date of Service Date of Service: 12/27/24 Progress Note: A&P Assessment and plan (1) Perforated viscus: Status: Acute Assessment and Plan: Status Nayla's procedure Also with advanced colon cancer Now on comfort measures Multiple discussions with the patient and family at bedside They are comfortable with the decision Time Spent With Patient Time: Total time managing care of this patient today ____ minutes. Quality Stroke Does the patient have a stroke diagnosis?: No VTE Prior VTE?: No VTE Risk Level:: Medical - moderate - high VTE Device Contraindication: N/A - Device Ordered VTE Drug Contraindication: N/A - Med Ordered
--- NOTE | 2024-12-27 10:55 | HO.PM.IMPN ---
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 Physical Exam Vital Signs: Vital Signs: Last Vital Signs Temp 100.2 F 12/26/24 12:00 Pulse 89 12/26/24 12:00 Resp 22 H 12/27/24 09:44 BP 133/76 12/26/24 12:00 Pulse Ox 2 L 12/26/24 12:00 O2 Del Method Nasal Cannula 12/26/24 12:00 O2 Flow Rate 2 12/26/24 08:00 FiO2 25 12/23/24 15:40 BMI result Body Mass Index 25.3 EXAM: Constitutional - Awake but weak and diaphoretic, No apparent distress Eyes - PERRL Cardiovascular - S1S2, RRR, No edema Respiratory - Normal lung expansion, Normal respiratory effort, No respiratory distress, CTA bilaterally GI - and softly distended, midline incision with dressing in place. LEÓN drain with purulent drainage. Stoma with yellow/brown output Extremities - no calf tenderness bilaterally, no swelling Skin - Warm/Dry Neurological - Alert & oriented x3 Psychological - Appropriate affect Const: Other: No agitation, breathing is comfortable Objective Data Active Medications Acetaminophen (Acetaminophen 325 Mg Tablet) 650 mg PO Q6H PRN PRN Reason: Fever Last Admin: 12/25/24 21:34 Dose: 650 mg Documented By: JULIA Docusate Sodium (Docusate Sodium 100 Mg Capsule) 100 mg PO BEDTIME PRN PRN Reason: Constipation Haloperidol (Haloperidol 1 Mg Tablet) 1 mg PO Q4H PRN PRN Reason: Delirium Hydrocortisone (Hydrocortisone 1 % Cream 28.35 Gm Tube) 1 appl TOPICAL BID [facility]; Protocol Last Admin: 12/27/24 08:05 Dose: 1 appl Documented By: POLINA Hydromorphone HCl (Hydromorphone Hcl 0.5 Mg/0.5 Ml Syringe) 1 mg IVPUSH Q2H PRN; Protocol PRN Reason: pain,severe Last Admin: 12/26/24 12:40 Dose: 1 mg Documented By: CUBA Hydromorphone HCl (Dilaudid) 10 mg in 50 mls @ 0 mls/hr IV .Q0M [facility]; Protocol Last Admin: 12/27/24 09:44 Dose: 4 mls/hr Documented By: POLINA Lorazepam (Lorazepam 2 Mg/Ml Vial) 0.5 mg IVPUSH Q4H PRN PRN Reason: Myoclonic twitching/anxiety Ondansetron HCl (Ondansetron Odt 4 Mg Tab.Rapdis) 4 mg TRANSLINGU Q8H PRN PRN Reason: Nausea and Vomiting Pharmacy Consult (Consult Rx Parenteral Nutrition Ordering) 1 each MISCELLANE DAILY PRN PRN Reason: Consult order Scopolamine (Scopolamine 1.5 Mg Patch.Td.3) 1.5 mg TRANSDERMA Q72H PRN PRN Reason: Secretions Last Admin: 12/26/24 13:06 Dose: 1.5 mg Documented By: POLINA Sodium Chloride (0.9 % Sodium Chloride Flush 3 Ml Syringe) 3 ml IVFLUSH QSHIFT [facility] Last Admin: 12/27/24 08:06 Dose: 3 ml Documented By: POLINA Labs 12/24/24 04:50 12/26/24 06:37 Labs: Laboratory Results - last 24 hr 12/26/24 11:49 POC Glucose 154 H Assessment and Plan (1) Diverticulitis of colon with perforation: Status: Acute (2) Peritonitis: Status: Acute Plan 54M PMH stage 4 adenocarcinoma of the colon with liver Mets, h/o paroxysmal AFIB admitted on December 05 to surgery service perforated diverticulum s/p diverting colostomy and resection of the tumor and had extensive peritoneal soilage/polymicrobial peritonitis, polymicrobial bacteremia, required intuabation and mechanical ventilation in ICU with prolong course and has now been on HighFlo. Hospital course further complicated by anemia, Cdif. On 12/22 he became unresponsive, and was intubated for airway protection and transfered to ICU again. Hwas extubated the next day 12/23 and transferd back to Med floor 12/24, unresponsiveness was likely d/t ativan. Overall his condition has continued to degrade and was made comfort measures only on 12/27 and transferred to medicing. Plan: ABLE BODIED WATCHMAN, continue dilaudid, benzo for comoft Issues addresed earlier Perforated colon with peritonitis, sepsis s/p colostomy on 11/16 peritoneal fluid has grown klebsiela, julieth, strep viridan, ecoli, bacillus and pseudomonas he has been on multiple Abx current on Flagyl, meropenem and caspofungus--presently not Abx E. coli and B. Fragilis bacteremia on presentation --treated as above Was seen by ID Paroxysmal AFIB, presently in sinus, intermitently goes into AFIB, and has been treated with amio and digoxin Anemia likely from combination of chronic disease, colon cancer Colon cancer, outpatient follow up with oncology mild to moderate malnutrition. dc ppn per patient Hyperglycemia? Hgb A1c 6.8, hyperglycemia d/t stress Depression DVT prophylaxis: Heparin Full Code Further discussion to be had upon family arrival later today. Discussed with Dr. Collazo If dies, cause of Sepsis due to Peritonitis Perforated colon cancer Quality Stroke Does the patient have a stroke diagnosis?: No VTE Prior VTE?: No VTE Risk Level:: Medical - moderate - high VTE Device Contraindication: N/A - Device Ordered VTE Drug Contraindication: N/A - Med Ordered
[2024-12-27] MEDS: LORazepam 2 MG/ML VIAL 0.5 MG IVPUSH (15:57)
[2024-12-27] MEDS: HYDROmorphone HCl/NS 10 MG/50 ML PIGGYBACK 9 MG IV ×2 (18:28→23:56)
--- NOTE | 2024-12-28 02:36 | PM.EVENT ---
Event Note Date of Service: 12/28/24 Event Note: I was called to patient's bedside to pronounce the patient. No spontaneous movements were present. There was no response to verbal or tactile stimulus. Pupils were mid dilated and fixed. No breath sounds were appreciated over either lung field. No carotid pulses were palpable. No heart sounds were auscultated over entire precordium. Patient was on comfort measures only. Patient pronounced on 12/28/2024 at 02:35. Tried calling Chioma (primary contact) but no answer. Called Ashia (secondary contract) and offered condolences. certificate completed. Time Spent With Patient Time: Total time managing care of this patient today ____ minutes.
--- NOTE | 2024-12-28 07:02 | P.DN_ITS ---
Discharge Sum: Prov Provider Primary care physician: Unknown Physician Consults: 54M PMH stage 4 adenocarcinoma of the colon with liver Mets, h/o paroxysmal AFIB admitted on December 05 to surgerical service for perforated diverticulum s/p diverting colostomy and resection of the tumor and had extensive peritoneal soilage/polymicrobial peritonitis (klebsiela, julieth, strep viridan, ecoli, bacillus and pseudomon), polymicrobial bacteremia, (E. coli and B. Fragilis) treated with multiple anti-microbial including Flagyl, meropenem and caspofungus. He required intubation and mechanical ventilation in ICU with prolong course and later weaned to HiFlow. He was transferred out of the ICU on 12/19. Hospital course was further complicated by anemia, Cdif, paroxysmal AFIB. On 12/22 he became unresponsive likely due to Benzo, and was intubated for airway protection and transferred back to the to the ICU again. Has extubated the next day 12/23 and transffered back to [facility] floor 12/24. Overall his condition continued to degrade and was made comfort measures only on 12/26 and transferred to medicine service. He on 12/28/24 at 2:35 AM Final diagnoses: Sepsis due peritonitis from perforated colon cancer Peritnoitis polymicrobial bacteremia Colon cancer moderate protein calory malnutriton Anemia, acute blood loos due to colon cancer Hyperglycemia Paroxysmal atrial fibrilation Depression Hypernatremia Hyponatremia Discharge Sum: Diag Contributing Factors (1) Diverticulitis of colon with perforation: (2) Peritonitis: Discharge Sum: Summary Date and Time Date of admission: 12/05/24 22:07 Date of : 12/28/24 Time of : 02:35 Additional Data Attending physician: Bryant Foreman MD
--- NOTE | 2025-01-09 01:47 | PC.NURSE ---
On 12/19/24 @ 3150 process description writer administered Oxycodone 5mg to patient.
== END 2024-12-28 06:36 | disposition expired | DRG 853 ==
LOC: HO.ED 18:17 → HO.SSS 18:44 → HO.ICU 22:08 → HO.IMC 12-18 17:27 → HO.ICU 12-22 16:13 → HO.IMC 12-24 14:36 → HO.ICU 12-24 14:44 → HO.S3 12-24 22:47 → HO.IMC 12-24 23:02
PROVIDERS: Internal Medicine Cardiovascular Disease; Internal Medicine Critical Care Medicine; Internal Medicine Pulmonary Disease; Nurse Practitioner Family; Physician Assistant Medical; Registered Nurse Community Health; Student in an Organized Health Care Education/Training Program; Surgery; Admitting Provider Surgery; Emergency Provider Emergency Medicine Emergency Medical Services; Visit Provider Internal Medicine
PROC: 0D1L0Z4 Bypass Transverse Colon to Cutaneous, Open Approach (ICD-10-PCS; CPT 49000; principal; 2024-12-05 19:30)
DX: A41.9 Sepsis, unspecified organism (principal); G93.41 Metabolic encephalopathy; K65.0 Generalized (acute) peritonitis; J96.01 Acute respiratory failure with hypoxia; J69.0 Pneumonitis due to inhalation of food and vomit; C18.7 Malignant neoplasm of sigmoid colon; K57.20 Diverticulitis of large intestine with perforation and abscess without bleeding; C78.7 Secondary malignant neoplasm of liver and intrahepatic bile duct; C77.2 Secondary and unspecified malignant neoplasm of intra-abdominal lymph nodes; K56.7 Ileus, unspecified; B37.89 Other sites of candidiasis; E44.0 Moderate protein-calorie malnutrition; E87.0 Hyperosmolality and hypernatremia; E87.1 Hypo-osmolality and hyponatremia; E11.65 Type 2 diabetes mellitus with hyperglycemia; I48.0 Paroxysmal atrial fibrillation; Z51.5 Encounter for palliative care; K66.0 Peritoneal adhesions (postprocedural) (postinfection); R57.0 Cardiogenic shock; F32.A Depression, unspecified; Z66 Do not resuscitate; D63.0 Anemia in neoplastic disease; I49.5 Sick sinus syndrome; B96.20 Unspecified Escherichia coli [E. coli] as the cause of diseases classified elsewhere; B87.9 Myiasis, unspecified; B96.1 Klebsiella pneumoniae [K. pneumoniae] as the cause of diseases classified elsewhere; B96.5 Pseudomonas (aeruginosa) (mallei) (pseudomallei) as the cause of diseases classified elsewhere; B96.6 Bacteroides fragilis [B. fragilis] as the cause of diseases classified elsewhere; B95.4 Other streptococcus as the cause of diseases classified elsewhere; Z68.35 Body mass index [BMI] 35.0-35.9, adult
CPT/HCPCS: 36415; 36600; 70470; 71045; 71260; 74018; 74176; 74177; 80048; 80053; 80076; 80202; 81001; 81003; 82040; 82272; 82803; 82947; 83036; 83605; 83690; 83735; 84100; 84478; 84484; 85007; 85014; 85018; 85025; 85027; 85610; 86850; 86900; 86901; 86923; 87040; 87070; 87073; 87076; 87077; 87169; 87186; 87205; 87324; 87493; 87507; 88307; 88309; 92526; 92610; 93005; 94002; 94003; 94799; 97112; 97163; 97167; 97530; 97535; 99285; J0131; J0282; J0283; J0637; J1100; J1160; J1171; J1308; J1450; J1610; J1642; J1644; J1836; J1885; J1938; J2003; J2060; J2185; J2250; J2310; J2312; J2371; J2405; J2470; J2543; J2704; J2795; J3010; J3360; J3370; J3371; J3480; J7120; P9016; P9047; Q9967

== ENCOUNTER → 2024-12-05 14:50 | Outpatient (BNV) | payer MEDICARE, MEDICAID, SELFPAY | PROVIDERS: Admitting Provider Surgery; Emergency Provider Emergency Medicine Emergency Medical Services; Visit Provider Internal Medicine Cardiovascular Disease | DX: R00.0 Tachycardia, unspecified (principal) | CPT/HCPCS: 93010 ==

== ENCOUNTER → 2024-12-05 15:41 | Outpatient (BNV) | payer MEDICARE, MEDICAID, SELFPAY | PROVIDERS: Emergency Provider Emergency Medicine Emergency Medical Services; Visit Provider Nuclear Medicine | DX: C18.9 Malignant neoplasm of colon, unspecified (principal); R91.1 Solitary pulmonary nodule | CPT/HCPCS: 71045; 74177 ==

== ENCOUNTER 2024-12-05 22:07 | Outpatient (BNV) | payer MEDICARE, MEDICAID, SELFPAY | END 2024-12-22 17:00 | PROVIDERS: Admitting Provider Surgery; Emergency Provider Emergency Medicine Emergency Medical Services; Visit Provider Nuclear Medicine | DX: R40.20 Unspecified coma (principal) | CPT/HCPCS: 71045 ==

== ENCOUNTER 2024-12-05 22:07 | Outpatient (BNV) | payer MEDICARE, MEDICAID, SELFPAY | END 2024-12-14 07:36 | PROVIDERS: Admitting Provider Surgery; Emergency Provider Emergency Medicine Emergency Medical Services; Visit Provider Radiology Diagnostic Radiology | DX: R68.89 Other general symptoms and signs (principal); R91.8 Other nonspecific abnormal finding of lung field | CPT/HCPCS: 71045 ==

== ENCOUNTER 2024-12-05 22:07 | Outpatient (BNV) | payer MEDICARE, MEDICAID, SELFPAY | END 2024-12-13 04:20 | PROVIDERS: Admitting Provider Surgery; Emergency Provider Emergency Medicine Emergency Medical Services; Visit Provider Radiology Diagnostic Radiology | DX: J98.11 Atelectasis (principal) | CPT/HCPCS: 71045 ==

== ENCOUNTER 2024-12-05 22:07 | Outpatient (BNV) | payer MEDICARE, MEDICAID, SELFPAY | END 2024-12-13 15:20 | PROVIDERS: Admitting Provider Surgery; Emergency Provider Emergency Medicine Emergency Medical Services; Visit Provider Internal Medicine Cardiovascular Disease | DX: R94.31 Abnormal electrocardiogram [ECG] [EKG] (principal); I49.9 Cardiac arrhythmia, unspecified | CPT/HCPCS: 93010 ==

== ENCOUNTER 2024-12-05 22:07 | Outpatient (BNV) | payer MEDICARE, MEDICAID, SELFPAY | END 2024-12-17 01:26 | PROVIDERS: Admitting Provider Surgery; Emergency Provider Emergency Medicine Emergency Medical Services; Visit Provider Radiology Diagnostic Radiology | DX: J90 Pleural effusion, not elsewhere classified (principal) | CPT/HCPCS: 71045 ==

== ENCOUNTER 2024-12-05 22:07 | Outpatient (BNV) | payer MEDICARE, MEDICAID, SELFPAY | END 2024-12-16 05:47 | PROVIDERS: Admitting Provider Surgery; Emergency Provider Emergency Medicine Emergency Medical Services; Visit Provider Internal Medicine Cardiovascular Disease | DX: R94.31 Abnormal electrocardiogram [ECG] [EKG] (principal); Z13.6 Encounter for screening for cardiovascular disorders | CPT/HCPCS: 93010 ==

== ENCOUNTER 2024-12-05 22:07 | Outpatient (BNV) | payer MEDICARE, MEDICAID, SELFPAY | END 2024-12-11 09:54 | PROVIDERS: Admitting Provider Surgery; Emergency Provider Emergency Medicine Emergency Medical Services; Visit Provider Radiology Diagnostic Radiology | DX: K65.9 Peritonitis, unspecified (principal) | CPT/HCPCS: 74176 ==

== ENCOUNTER 2024-12-05 22:07 | Outpatient (BNV) | payer MEDICARE, MEDICAID, SELFPAY | END 2024-12-23 23:42 | PROVIDERS: Admitting Provider Surgery; Emergency Provider Emergency Medicine Emergency Medical Services; Visit Provider Radiology Neuroradiology | DX: K57.30 Diverticulosis of large intestine without perforation or abscess without bleeding (principal); H74.8X3 Other specified disorders of middle ear and mastoid, bilateral; R60.1 Generalized edema; J90 Pleural effusion, not elsewhere classified; R91.8 Other nonspecific abnormal finding of lung field; J98.11 Atelectasis | CPT/HCPCS: 70470; 71260; 74177 ==

== ENCOUNTER 2024-12-05 22:07 | Outpatient (BNV) | payer MEDICARE, MEDICAID, SELFPAY | END 2024-12-06 04:29 | PROVIDERS: Admitting Provider Surgery; Emergency Provider Emergency Medicine Emergency Medical Services; Visit Provider Specialist | DX: Z99.11 Dependence on respirator [ventilator] status (principal); Z95.9 Presence of cardiac and vascular implant and graft, unspecified | CPT/HCPCS: 71045; 74018 ==

== ENCOUNTER → 2024-12-05 22:07 | Outpatient (BNV) | payer MEDICARE, MEDICAID, SELFPAY | PROVIDERS: Admitting Provider Surgery; Emergency Provider Emergency Medicine Emergency Medical Services; Visit Provider Internal Medicine | DX: K65.9 Peritonitis, unspecified (principal); K57.20 Diverticulitis of large intestine with perforation and abscess without bleeding | CPT/HCPCS: 99232; 99233; 99499 ==

== ENCOUNTER → 2024-12-05 22:07 | Outpatient (BNV) | payer MEDICARE, MEDICAID, SELFPAY | PROVIDERS: Admitting Provider Surgery; Emergency Provider Emergency Medicine Emergency Medical Services; Visit Provider Internal Medicine Pulmonary Disease | DX: Z93.3 Colostomy status (principal); J96.01 Acute respiratory failure with hypoxia; C18.9 Malignant neoplasm of colon, unspecified; Z90.49 Acquired absence of other specified parts of digestive tract | CPT/HCPCS: 99291 ==

== ENCOUNTER → 2024-12-05 22:07 | Outpatient (BNV) | payer MEDICARE, MEDICAID, SELFPAY | PROVIDERS: Admitting Provider Surgery; Emergency Provider Emergency Medicine Emergency Medical Services; Visit Provider Physician Assistant Medical | DX: J96.01 Acute respiratory failure with hypoxia (principal); K57.20 Diverticulitis of large intestine with perforation and abscess without bleeding; K63.89 Other specified diseases of intestine; R19.8 Other specified symptoms and signs involving the digestive system and abdomen | CPT/HCPCS: 36556; 99291 ==

== ENCOUNTER → 2024-12-05 22:07 | Outpatient (BNV) | payer MEDICARE, MEDICAID, SELFPAY | PROVIDERS: Admitting Provider Surgery; Emergency Provider Emergency Medicine Emergency Medical Services; Visit Provider Internal Medicine | DX: K57.20 Diverticulitis of large intestine with perforation and abscess without bleeding (principal) | CPT/HCPCS: 99222 ==

== ENCOUNTER → 2024-12-05 22:07 | Outpatient (BNV) | payer MEDICARE, MEDICAID, SELFPAY | PROVIDERS: Admitting Provider Surgery; Emergency Provider Emergency Medicine Emergency Medical Services; Visit Provider Registered Nurse | DX: F33.2 Major depressive disorder, recurrent severe without psychotic features (principal); Z76.89 Persons encountering health services in other specified circumstances | CPT/HCPCS: 99231 ==

== ENCOUNTER → 2024-12-05 22:07 | Outpatient (BNV) | payer MEDICARE, MEDICAID, SELFPAY | PROVIDERS: Admitting Provider Surgery; Emergency Provider Emergency Medicine Emergency Medical Services; Visit Provider Surgery | DX: K57.20 Diverticulitis of large intestine with perforation and abscess without bleeding (principal); Z93.3 Colostomy status; R19.8 Other specified symptoms and signs involving the digestive system and abdomen | CPT/HCPCS: 99024; 99223; 99499 ==